=== PATIENT | male | born 1965 | race Caucasian/White ===

== ENCOUNTER 2018-02-15 17:09 | Outpatient (REF) | payer MEDICAID, SELFPAY ==
[2018-02-15 19:33] LABS: Anion Gap 8.4 mmol/L (3-11); BUN 15 mg/dL (7-18); CO2 28.6 mmol/L (21.0-32.0); CREATININE 1.24 mg/dL (0.70-1.30); Calcium 10.1 mg/dL (8.5-10.1); Chloride 100 mmol/L (98-107); Glucose 87 mg/dL (70-100); Potassium 3.6 mmol/L (3.5-5.1); Sodium 137 mmol/L (136-145)
== END 2018-02-15 17:29 ==
LOC: NCHCN 17:09
PROVIDERS: PCP Family Medicine; Visit Provider Family Medicine
DX: I10 Essential (primary) hypertension (principal)
CPT/HCPCS: 80048

== ENCOUNTER 2019-07-11 12:55 | Outpatient (REF) | payer MEDICARE, MEDICAID, SELFPAY ==
[2019-07-11 19:57] LABS: ALT 29 U/L (16-63); AST 25 U/L (15-37); Albumin 3.9 g/dL (3.4-5.0); Alkaline Phosphatase 67 U/L (46-116); Anion Gap 9.8 mmol/L (3-11); BUN 13 mg/dL (7-18); Bilirubin, Total 0.3 mg/dL (0.2-1.0); CO2 30.2 mmol/L (21.0-32.0); CREATININE 1.32 mg/dL (0.70-1.30); Calcium 9.8 mg/dL (8.5-10.1); Calculated LDL 138 mg/dL (<100); Chloride 97 mmol/L (98-107); Cholesterol 215 mg/dL (<200); Estimated GFR 57.18 (mL/min/1.73m2); Glucose 101 mg/dL (74-106); HDL Cholesterol 42 mg/dL (40-60); Potassium 3.9 mmol/L (3.5-5.1); Sodium 137 mmol/L (136-145); Total Protein 7.8 g/dL (6.4-8.2); Triglyceride 175 mg/dL (<150)
== END 2019-07-11 13:15 ==
LOC: NCHCN 12:55
PROVIDERS: PCP Family Medicine; Visit Provider Family Medicine
DX: I10 Essential (primary) hypertension (principal)
CPT/HCPCS: 80053; 80061

== ENCOUNTER 2020-02-05 21:31 | Outpatient (REF) | payer MEDICARE, MEDICAID, SELFPAY ==
[2020-02-13 11:21] LABS: 2-OH-Ethyl-Flurazepam Negative; Lorazepam Negative; Temazepam Negative
[2020-02-13 11:46] LABS: Alpha OH-Alprazolam Negative
[2020-02-13 11:49] LABS: Benzodiazepines Interpretation Positive
[2020-02-13 12:31] LABS: 7-NH-Clonazepam 979 ng/mL
[2020-02-13 12:32] LABS: 7-NH-Flunitrazepam Negative
[2020-02-13 12:37] LABS: Alpha-OH-Triazolam Negative
== END 2020-02-05 21:51 ==
LOC: NCHCN 21:31
PROVIDERS: PCP Family Medicine; Visit Provider Family Medicine
DX: Z51.81 Encounter for therapeutic drug level monitoring (principal)
CPT/HCPCS: 80346

== ENCOUNTER 2021-03-01 20:10 | Outpatient (REF) | payer MEDICARE, MEDICAID, SELFPAY ==
[2021-03-01 20:02] LABS: ALT 27 U/L (16-63); AST 23 U/L (15-37); Albumin 4.1 g/dL (3.4-5.0); Alkaline Phosphatase 94 U/L (46-116); Anion Gap 13.5 mmol/L (3-11); BUN 21 mg/dL (7-18); Bilirubin, Total 0.5 mg/dL (0.2-1.0); CO2 25.5 mmol/L (21.0-32.0); CREATININE 1.6 mg/dL (0.70-1.30); Calcium 9.5 mg/dL (8.5-10.1); Calculated LDL 156 mg/dL (<100); Chloride 103 mmol/L (98-107); Cholesterol 248 mg/dL (<200); Estimated GFR 45.44 (mL/min/1.73m2); Glucose 83 mg/dL (74-106); HDL Cholesterol 47 mg/dL (40-60); Potassium 3.9 mmol/L (3.5-5.1); Sodium 142 mmol/L (136-145); Total Protein 7.8 g/dL (6.4-8.2); Triglyceride 228 mg/dL (<150)
[2021-03-02 23:18] LABS: PSA, Screening 0.5 ng/mL (0.0-3.5)
== END 2021-03-01 20:11 | disposition home or self-care (01) ==
LOC: NCHCN 20:10
PROVIDERS: PCP Family Medicine; Visit Provider Family Medicine
DX: I10 Essential (primary) hypertension (principal); E78.5 Hyperlipidemia, unspecified; Z00.00 Encounter for general adult medical examination without abnormal findings
CPT/HCPCS: 80053; 80061; 84153

== ENCOUNTER 2021-05-02 03:32 | Outpatient (CLI) | payer MEDICARE, MEDICAID, SELFPAY ==
--- NOTE | 2021-05-02 13:00 | DI.US_ITS ---
Exam(s) US RENAL EXAM: US RENAL CLINICAL HISTORY: RENAL INSUFFICIENCY, N28.9. TECHNIQUE: Martin scale, color and spectral Doppler were used. COMPARISON: No exams were available for comparison FINDINGS: Renal size in cm: Right: 10.5 left: 10.5 Echogenicity: Normal. Normal parenchymal thickness. Hydronephrosis: No Cyst or mass: No Nephrolithiasis: No Bladder:Normal. Did the ureteral jets were not visualized. Prevoid vol: 45 cc Postvoid vol:0 cc IMPRESSION: Unremarkable renal ultrasound. DATA REPOSITORY:
== END 2021-05-02 03:52 ==
PROVIDERS: PCP Family Medicine; Visit Provider Family Medicine
DX: N28.9 Disorder of kidney and ureter, unspecified (principal)
CPT/HCPCS: 76770

== ENCOUNTER 2021-05-24 17:54 | Outpatient (REF) | payer MEDICARE, MEDICAID, SELFPAY ==
[2021-05-26 12:53] LABS: COVID-19 RT-PCR UVMMC Result Negative (Negative)
== END 2021-05-24 17:55 | disposition home or self-care (01) ==
LOC: NCHCN 17:54
PROVIDERS: PCP Family Medicine; Visit Provider Family Medicine
DX: Z20.822 Contact with and (suspected) exposure to COVID-19 (principal)
CPT/HCPCS: U0003

== ENCOUNTER 2021-08-23 15:58 | Outpatient (REF) | payer MEDICARE, MEDICAID, SELFPAY ==
[2021-08-23 15:08] LABS: HCT 51.6 % (40.0-50.0)
[2021-08-23 16:24] LABS: ALT 38 U/L (16-63); AST 26 U/L (15-37); Albumin 3.7 g/dL (3.4-5.0); Alkaline Phosphatase 72 U/L (46-116); Anion Gap 7.3 mmol/L (3-11); BUN 18 mg/dL (7-18); Bilirubin, Total 0.3 mg/dL (0.2-1.0); C-Reactive Protein 0.24 mg/dL (0.0-0.3); CO2 27.7 mmol/L (21.0-32.0); CREATININE 1.5 mg/dL (0.70-1.30); Calcium 8.9 mg/dL (8.5-10.1); Chloride 103 mmol/L (98-107); Estimated GFR 48.77 (mL/min/1.73m2); Glucose 88 mg/dL (74-106); Potassium 3.7 mmol/L (3.5-5.1); Sodium 138 mmol/L (136-145); Total Protein 7.4 g/dL (6.4-8.2)
[2021-08-24 14:59] LABS: ANA Interpretation Positive (Negative); ANA Titer Pattern 1:320 Homogeneous
== END 2021-08-23 15:59 | disposition home or self-care (01) ==
LOC: NCHCN 15:58
PROVIDERS: PCP Family Medicine; Visit Provider Family Medicine
DX: I10 Essential (primary) hypertension (principal); N28.9 Disorder of kidney and ureter, unspecified; M79.7 Fibromyalgia; G89.29 Other chronic pain
CPT/HCPCS: 80053; 85014; 85018; 86038; 86140

== ENCOUNTER 2021-09-20 15:44 | Outpatient (REF) | payer MEDICARE, MEDICAID, SELFPAY ==
[2021-09-20 19:04] LABS: Bacteria Negative HPF (Negative); C & S Indicated? No; Crystals Negative HPF (Negative); Epithelial Cells Few HPF (Negative); Mucus Moderate (Negative); WBC 0-2 HPF (0-5)
[2021-09-22 12:12] LABS: dsDNA Ab, IgG <12.3 IU/mL (<30.0)
[2021-09-22 13:00] LABS: RNP Ab, IgG 4.2 Units (<20.0); SS-A Antibody 1.9 Units (<20.0); SS-B (La) Ab, IgG 2.9 Units (<20.0); Sm (Smith) Ab, IgG 4.4 Units (<20.0)
== END 2021-09-20 15:45 | disposition home or self-care (01) ==
LOC: NCHCN 15:44
PROVIDERS: PCP Family Medicine; Visit Provider Family Medicine
DX: N28.9 Disorder of kidney and ureter, unspecified (principal); R94.4 Abnormal results of kidney function studies; R79.89 Other specified abnormal findings of blood chemistry
CPT/HCPCS: 81015; 86225; 86235

== ENCOUNTER 2022-01-24 15:49 | Outpatient (REF) | payer MEDICARE, MEDICAID, SELFPAY ==
[2022-01-24 18:53] LABS: HCT 51.5 % (40.0-50.0); HGB 17.1 g/dL (13.5-17.5); MCH 31.5 pg (27.0-33.0); MCHC 33.2 % (32.0-36.0); MCV 95 fL (80-95); MPV 10.9 fL (8.0-11.0); Platelet Count 239 10^3/uL (130-400); RBC 5.43 10^6/uL (4.36-5.78); RDW 14.6 % (11.8-14.1); RDW-SD 50.5 fL; WBC 8.67 10^3/uL (4.4-10.8)
[2022-01-24 19:01] LABS: Anion Gap 6.8 mmol/L (3-11); BUN 17 mg/dL (7-18); CO2 29.2 mmol/L (21.0-32.0); CREATININE 1.5 mg/dL (0.70-1.30); Calcium 9.7 mg/dL (8.5-10.1); Chloride 102 mmol/L (98-107); Estimated GFR 54.98 (mL/min/1.73m2); Glucose 125 mg/dL (74-106); Potassium 4.2 mmol/L (3.5-5.1); Sodium 138 mmol/L (136-145)
== END 2022-01-24 15:50 | disposition home or self-care (01) ==
LOC: NCHCN 15:49
PROVIDERS: PCP Family Medicine; Visit Provider Family Medicine
DX: R79.89 Other specified abnormal findings of blood chemistry (principal); I10 Essential (primary) hypertension; N28.9 Disorder of kidney and ureter, unspecified; R94.4 Abnormal results of kidney function studies; Z00.00 Encounter for general adult medical examination without abnormal findings
CPT/HCPCS: 80048; 85027

== ENCOUNTER 2022-04-06 14:56 | Outpatient (REF) | payer MEDICARE, MEDICAID, SELFPAY ==
[2022-04-06 15:58] LABS: ALT 37 U/L (16-63); AST 40 U/L (15-37); Albumin 3.9 g/dL (3.4-5.0); Alkaline Phosphatase 90 U/L (46-116); Anion Gap 8.4 mmol/L (3-11); BUN 17 mg/dL (7-18); Bilirubin, Total 0.4 mg/dL (0.2-1.0); CO2 27.6 mmol/L (21.0-32.0); CREATININE 1.5 mg/dL (0.70-1.30); Calcium 9.5 mg/dL (8.5-10.1); Calculated LDL 119 mg/dL (<100); Chloride 101 mmol/L (98-107); Cholesterol 207 mg/dL (<200); Estimated GFR 54.98 (mL/min/1.73m2); Glucose 93 mg/dL (74-106); HDL Cholesterol 42 mg/dL (40-60); Potassium 4.4 mmol/L (3.5-5.1); Sodium 137 mmol/L (136-145); Total Protein 8.2 g/dL (6.4-8.2); Triglyceride 231 mg/dL (<150)
[2022-04-06 16:16] LABS: Creatine Kinase 140 U/L (39-308)
== END 2022-04-06 14:57 | disposition home or self-care (01) ==
LOC: NCHCN 14:56
PROVIDERS: PCP Family Medicine; Visit Provider Family Medicine
DX: E78.5 Hyperlipidemia, unspecified (principal); I10 Essential (primary) hypertension; N28.9 Disorder of kidney and ureter, unspecified; Z00.00 Encounter for general adult medical examination without abnormal findings
CPT/HCPCS: 80053; 80061; 82550

== ENCOUNTER 2022-06-06 00:24 | Outpatient (CLI) | payer MEDICARE, MEDICAID, SELFPAY ==
--- NOTE | 2022-06-06 | DI.CTLCSR_ITS ---
Exam(s) CT CHEST LUNG CANCER SCREEN EXAM: CT CHEST LUNG CANCER SCREEN CLINICAL HISTORY: SCREENING FOR LUNG CA, CURRENT SMOKER, F17.210. TECHNIQUE: Imaging Protocol: Low Dose Technique CONTRAST MATERIAL: None COMPARISON: CR CHEST 2 VIEWS PA,LAT from 04/07/2016 FINDINGS: CHEST: LUNGS: There is a calcified granuloma in the lateral aspect of the right upper which measures 8 x 8 m illimeters and immediately posterior to this is a smaller 2 millimeter calcified granuloma. There ar e no ominous pulmonary nodules in the right lung field. Benign-appearing scarring in the medial righ t lung base noted. Also no significant nodules in the opposite-left lung. No pleural effusions on e ither side.. MEDIASTINUM: There is no obvious hilar nor mediastinal adenopathy. CARDIAC: Heart size is normal. There is no pericardial effusion.Caliber of the thoracic aorta is wit hin normal limits. OTHER: No adrenal masses. No splenomegaly. OSSEOUS: No significant osseous lesions.No acute fractures.. Mild indentation of multiple superior endplates including Schmorl's node invaginations IMPRESSION: 1. Benign calcified granulomas right lung. No concerning lung nodules. No pleural effusions. No in trathoracic adenopathy. 2. Other findings as above. 3. Lung RADS Cat 2 - Benign Appearance / Behavior: Nodules with a very low likelihood of becoming a c linically active cancer due to size or lack of growth Lung-RADS 1.0 CATEGORIES: Category 0 - Prior chest CT exam(s) being located for comparison. Category 1 - Annual screening in 12 months. No nodules or definitely benign nodules. Category 2 - Annual screening in 12 months. Benign appearance. Nodules with low likelihood of becomin g active cancer. Category 3 - 6-month follow-up. Probably benign. Short-term follow-up suggested. Nodules with low lik elihood of becoming active cancer. Category 4A - 3-month follow-up and CT/PET if >8 mm in size. Suspicious finding. Findings which requi re additional testing. Category 4B - Findings which require additional testing and tissue sampling. Category 4X - Category 3 or 4 nodules with additional features or imaging findings that increases the suspicion of malignancy. Modifier S- Potentially clinically significant findings (non lung cancer) RADIATION DOSE DELIVERED: 101.51mGy.cm Total DLP DATA REPOSITORY: All CT scans at this facility are submitted to the National Radiology Data Registry (NRDR) Dose Index Registry (DIR) with the [employer] (ACR). RADIATION OPTIMIZATION: All CT scans at this facility use at least one of these dose optimization te chniques: automated exposure control; mA and/or kV adjustment per patient size (includes targeted exa ms where dose is matched to clinical indication); or iterative reconstruction.
== END 2022-06-06 00:44 ==
LOC: DI 00:25
PROVIDERS: PCP Family Medicine; Visit Provider Family Medicine
DX: F17.210 Nicotine dependence, cigarettes, uncomplicated (principal); J84.10 Pulmonary fibrosis, unspecified
CPT/HCPCS: 71271

== ENCOUNTER 2022-07-24 11:33 | Emergency (ER) | payer MEDICARE, MEDICAID, SELFPAY ==
[2022-07-24] VITALS (50 sets, daily range): BP systolic 128–172; BP diastolic 87–108; PULSE 49–76; RESP 10–19; TEMP 36.9; O2SAT 92–99
--- NOTE | 2022-07-24 12:30 | DI.CT_ITS ---
Exam(s) CT ABD AORTA CTA W RUNOFF EXAM: CT ABD AORTA CTA W RUNOFF CLINICAL HISTORY: paresthesias LE, no palp pulses LE, discoloration. TECHNIQUE: Imaging Protocol: Axial computed tomography images with coronal and sagittal reformatted images were created and reviewed CONTRAST MATERIAL: Intravenous: Omnipaque 350 Contrast volume:100 ml Oral: None COMPARISON: CT CT LUMBAR SPINE RECONS from 07/24/2022 FINDINGS: CHEST: ABDOMINAL AORTA: There is significant atherosclerotic involvement of the abdominal aorta and the abdo rafy aorta none is occluded at just slightly below the renal artery takeoff points. Right kidney is perfused. The anterior aspect the left kidney is not well perfused. Celiac artery is perfused. Th ere is some atherosclerotic involvement of the origin of the SMA. There appears to be a partially ca lcified intimal flap in the occluded abdominal aorta. There is no aneurysm. Common iliac arteries a re calcified but not enlarged. No flow seen in these vessels. There is, however, some flow reconsti tuted in the bilateral common femoral arteries. These vessels are atherosclerotic at their origins. However, the SFA arteries in both sides are patent without prominent stenosis. Both popliteal arter ies exhibit atherosclerotic involvement. There are no aneurysms of the popliteal arteries. There is satisfactory runoff in both calves. ABDOMEN: There is no ascites. There are no ischemic appearing bowel loops. No ascites evident. No bowel obs truction, free air, nor abscess. LIVER: There are no focal hepatic lesions nor dilatation of intrahepatic ducts. GALLBLADDER/BILIARY: No obvious gallbladder pathology. CBD is not dilated. PANCREAS: No evidence of pancreatic mass nor dilatation of the pancreatic duct. SPLEEN: Spleen is not enlarged. There are no intrasplenic lesions. Splenic and portal veins are kelly nt. ADRENALS: There are no significant adrenal masses. KIDNEYS: No cysts evident. No calculi nor hydronephrosis. No solid renal masses. ABDOMINAL AORTA: Occluded at and just distal to the renal arteries. Appearance is most probably rela robbin to prior dissection. LYMPH NODES: There is no retroperitoneal nor para-aortic adenopathy. No obvious mesenteric masses. ABDOMINAL WALL: No evidence of significant anterior abdominal wall hernia. GI: Diverticulosis of the sigmoid but no obvious acute diverticulitis. No appendicitis. PELVIS: LYMPH NODES: There is no intrapelvic nor inguinal adenopathy. GI: No evidence of appendicitis.Sigmoid diverticulosis. No obvious acute diverticulitis. URINARY BLADDER: No calculi nor masses evident REPRODUCTIVE: Prostate size normal. OSSEOUS: No significant osseous lesions. No fractures. IMPRESSION: 1. There is occlusion of the abdominal aorta just below the renal artery levels. The appearance of t he occlusion suggested it may be because of prior dissection. There is no flow seen in the common an d external iliac arteries but there is flow in the femoral arteries and popliteal arteries and runoff vessels of the calf. There is atherosclerotic disease at the level the popliteal arteries. No popl iteal artery aneurysms.. 2. There is significant decreased perfusion to the anterior aspect of the left kidney. 3. Other findings as above RADIATION DOSE DELIVERED: Total DLP DATA REPOSITORY: All CT scans at this facility are submitted to the National Radiology Data Registry (NRDR) Dose Index Registry (DIR) with the [employer] (ACR). RADIATION OPTIMIZATION: All CT scans at this facility use at least one of these dose optimization te chniques: automated exposure control; mA and/or kV adjustment per patient size (includes targeted exa ms where dose is matched to clinical indication); or iterative reconstruction.
--- NOTE | 2022-07-24 12:30 | RT.EKG_ITS ---
APPROVED REPORT Exam: Resting ECG Reason for Exam: left chest pain Patient Location: E HR:60 bpm ECG Measurements Heart Rate 60 AXIS CO 135 P 17 QRSd 93 QRS 68 QT 425 T 49 QTc 426 Conclusion Sinus rhythm...normal P axis, V-rate 60- 99 Narrow complex normal sinus rhythm at a rate of 68. Normal axis. Intervals within normal limits. T wave flattening in aVL. No ST segment abnormalities. No prior for comparison. No acute injury pat delores.
--- NOTE | 2022-07-24 12:38 | DI.CT_ITS ---
Exam(s) CT LUMBAR SPINE RECONS EXAM: CT LUMBAR SPINE RECONS CLINICAL HISTORY: back pain post fall. TECHNIQUE: Imaging Protocol: Axial computed tomography images with coronal and sagittal reformatted images were created and reviewed COMPARISON: No exams were available for comparison FINDINGS: Bones: There are no fractures, listhesis, nor pars defects. There are no lytic nor blastic osseous l esions evident. Disc spaces exhibit normal height. PARASPINAL SOFT TISSUES: There is occlusion of the abdominal aorta just distal to the renal arteries. IMPRESSION: 1. No fractures. 2. Occluded abdominal aorta- Leriche syndrome RADIATION DOSE DELIVERED: 1624.47 mGy.cm Total DLP DATA REPOSITORY: All CT scans at this facility are submitted to the National Radiology Data Registry (NRDR) Dose Index Registry (DIR) with the [employer] (ACR). RADIATION OPTIMIZATION: All CT scans at this facility use at least one of these dose optimization te chniques: automated exposure control; mA and/or kV adjustment per patient size (includes targeted exa ms where dose is matched to clinical indication); or iterative reconstruction.
[2022-07-24 13:07] LABS: Abs Immature Grans 0.03 10^3/uL (0.0-0.06); Absolute Basophil Count 0.05 10^3/uL (0.0-0.2); Absolute Eosinophil Count 0.14 10^3/uL (0.0-0.7); Absolute Lymphocyte Count 2.47 10^3/uL (1.2-3.4); Absolute Monocyte Count 0.57 10^3/uL (0.1-0.8); Absolute Neutrophil Count 4.36 10^3/uL (1.2-6.7); Basophils % 0.7; Eosinophils % 1.8; Immature Grans % 0.4; Lymphocytes % 32.4; MCH 31.2 pg (27.0-33.0); MCHC 33.3 % (32.0-36.0); MCV 94 fL (80-95); MPV 9.8 fL (8.0-11.0); Monocytes % 7.5; Neutrophils % 57.2; Platelet Count 180 10^3/uL (130-400); RBC 5.13 10^6/uL (4.36-5.78); RDW 14.6 % (11.8-14.1); RDW-SD 50.5 fL; WBC 7.62 10^3/uL (4.4-10.8)
[2022-07-24] MEDS: fentaNYL 100 MCG/2 ML VIAL 50 MCG IVP (13:22)
[2022-07-24 13:53] LABS: ALT 21 U/L (16-63); AST 22 U/L (15-37); Albumin 3.5 g/dL (3.4-5.0); Alkaline Phosphatase 87 U/L (46-116); Anion Gap 8.3 mmol/L (3-11); BUN 28 mg/dL (7-18); Bilirubin, Total 0.3 mg/dL (0.2-1.0); CO2 26.7 mmol/L (21.0-32.0); CREATININE 1.5 mg/dL (0.70-1.30); Calcium 8.6 mg/dL (8.5-10.1); Chloride 103 mmol/L (98-107); Estimated GFR 54.98 (mL/min/1.73m2); Glucose 96 mg/dL (74-106); Potassium 4.2 mmol/L (3.5-5.1); Sodium 138 mmol/L (136-145); Total Protein 7.6 g/dL (6.4-8.2)
[2022-07-24] MEDS: Normal Saline - Diluent 50 ML VIAL IJ (14:33)
[2022-07-24] MEDS: Omnipaque 350 MG/ML 100 ML BTL IJ (14:33)
[2022-07-24] MEDS: Normal Saline Flush 10 ML SYR IVP (14:34)
--- NOTE | 2022-07-24 14:41 | W.ED.GENAD ---
Discharge Plan Disposition Patient Disposition: Transfer-Acute Inpatient Care Specific Acute Inpt Facility: [facility] Discharge Details Clinical Impression: Aortic occlusion Primary Care Provider: April Ramirez V ED Provider: Brooklynn Vital Home Meds and New Rx's Prescriptions: Continued sertraline [Zoloft] 100 MG tablet 20 mg PO DAILY clonazepam 1 MG tablet 1 mg PO TID hydrocodone-acetaminophen [Vicodin HP] 1 EACH tablet 1 ea PO QPM PRNQty: 8 0RF Patient Comments: not taking Discharge Data Discharge Date/Time-TO BE ENTERED AT DEPARTURE: 07/24/22 19:27 Medical Decision Making <AILYN Otto - Last Filed: 07/26/22 13:36> This 36-year-old male presents with report of back pain and paresthesias to bilateral lower extremities. He states bilateral lower extremities, worse on the right in the popliteal region and right foot, he is having trouble with flexion and extension of his right foot secondary to pain or radiation Secondary to discoloration to bilateral lower extremities and inability to gain pulses to bilateral lower extremities, CTA aorta with runoff was ordered, patient is a distal occlusion with concern for infarcted left kidney Creatinine 1.4, unchanged from prior Received pain medication and heparin bolus in the infusion Case was discussed with Dr. Leger, vascular surgeon on-call at [facility], she is excepted patient to the emergency department for emergent assessment Patient aware, full CODE STATUS Medical Records Medical records reviewed: Yes I reviewed the patient's medical records. Lab Data Lab results reviewed: Yes I reviewed the patient's lab results. <Brooklynn Vital NP - Last Filed: 07/24/22 20:48> This 36-year-old male presents with report of back pain and paresthesias to bilateral lower extremities. He states bilateral lower extremities, worse on the right in the popliteal region and right foot, he is having trouble with flexion and extension of his right foot secondary to pain or radiation Secondary to discoloration to bilateral lower extremities and inability to gain pulses to bilateral lower extremities, CTA aorta with runoff was ordered, patient is a distal occlusion with concern for infarcted left kidney Creatinine 1.4, unchanged from prior Received pain medication and heparin bolus in the infusion Case was discussed with Dr. Leger, vascular surgeon on-call at [facility], she is excepted patient to the emergency department for emergent assessment Patient aware, full CODE STATUS 1630: SJ: Care assumed from provider (AILYN Otto) Please see their initial HPI, PE, and documentation. Discussed patient details and case and pending workup and disposition. Patient is hemodynamically stable, and alert and oriented. At the time of signout awaiting transfer to [facility] for vascular surgery eval. In short patient is a 56-year-old male with an occluded distal aorta with concern for infarcted left kidney. Patient is on a heparin drip at this time. Vital signs are stable at this time. Approximate ETA for transfer is 1900 1803: PTT received from the lab to be greater than 155. Heparin drip stopped for approximately 60 minutes per protocol we will restart at a reduced rate. 1905: EMS here for transfer. Patient has remained hemodynamically stable through the remainder of his stay. HPI <AILYN Otto - Last Filed: 07/26/22 13:36> General Date/Time Provider Initiated Documentation: 07/24/22 12:24. HPI Narrative: This 56-year-old gentleman with history of renal insufficiency and tobacco abuse presents with report of chronic back pain worsening symptoms over the course of the past 2 days. He states that he has had intermittent numbness over the course of the past 48 hours. He states that the numbness is caused him to fall, he denies any head injury. He denies any shortness of breath. He states he did hit his ribs when he fell. He denies any current headache or dizziness. He states that he presents secondary to persistent back pain and paresthesias to his legs, he states it starts at the top of his hips and the paresthesias are diffuse throughout his lower extremities, he wrote reports significant pain to his right lower extremity and right foot. Related Data Home Medications Medication Instructions Recorded Confirmed clonazepam 1 mg tablet 1 mg PO TID 04/07/16 07/24/22 hydrocodone 10 mg-acetaminophen 1 ea PO QPM PRN ##8 04/07/16 300 mg tablet (Vicodin HP) sertraline 100 mg tablet (Zoloft) 20 mg PO DAILY 04/07/16 07/24/22 Previous Rx's Medication Instructions Recorded hydrocodone 10 mg-acetaminophen 1 ea PO QPM PRN ##8 04/07/16 300 mg tablet (Vicodin HP) Allergies Allergy/AdvReac Type Severity Reaction Status Date / Time codeine AdvReac Mild Nausea Unverified 07/24/22 11:39 General Stated Complaint: Nk/Back Pain MONIQUE: 3 PFSH <AILYN Otto - Last Filed: 07/26/22 13:36> All Active Problems (Updated 07/24/22 @ 16:17 by AILYN Otto) Aortic occlusion (Acute) Renal insufficiency (Chronic) Exposure to SARS-associated coronavirus (Acute) Elevated serum creatinine (Acute) NEEMA positive (Acute) Smoker (Acute) Inflamed sebaceous cyst (Acute) Medical History (Updated 07/24/22 @ 16:17 by AILYN Otto) Acne Acute chest wall pain Arthralgia Carpal tunnel syndrome, bilateral Cervicalgia Chronic pain Encounter for therapeutic drug level monitoring Erectile dysfunction Fibromyalgia Fracture of one rib of right side Generalized anxiety disorder History of adverse drug reaction History of alcohol abuse Hyperlipidemia Hypertension Insomnia Lower back pain Osteoarthritis, generalized PTSD (post-traumatic stress disorder) Raynauds phenomenon Right groin pain Sebaceous cyst Situational depression Viral syndrome Social History Smoking/Tobacco Use Status: Current every day Smoking risk assessment performed?: Yes Alcohol Intake: never Drug use: Daily Substance use type: marijuana Do you feel safe in your relationship?: Yes Exam <AILYN Otto - Last Filed: 07/26/22 13:36> Const General: cooperative, comfortable and no acute distress Cardio Rate: regular rate Rhythm: regular rhythm GI Inspection: normal to inspection Other: No abdominal tenderness, no CVA tenderness Neuro General: patient alert and patient oriented x3 Other: diminished sensation to bilateral LE Extrem Other: pale, cool LE, no pulse palpated or with doppler Course <AILYN Otto - Last Filed: 07/26/22 13:36> Vital Signs Vital signs: Vital Signs Temperature 36.9 C 07/24/22 11:36 Pulse 76 07/24/22 11:36 Respiratory Rate 18 07/24/22 11:36 Blood Pressure 157/103 H 07/24/22 11:36 Pulse Oximetry 98 07/24/22 11:36 Temperature 36.9 C 07/24/22 11:36 Temperature Source Temporal Artery Scan 07/24/22 11:36 Pulse 59 L 07/24/22 14:32 Respiratory Rate 18 07/24/22 11:36 Respiratory Effort Normal, Non-Labored 07/24/22 11:39 Blood Pressure 145/93 H 07/24/22 14:32 Blood Pressure Mean 104 07/24/22 14:32 Pulse Oximetry 98 07/24/22 14:32 Oxygen Delivery Method Room Air 07/24/22 11:36 Oxygen Flow Rate 0 07/24/22 11:36 Lab/Test Results Lab/Test Results: Laboratory Tests Range/Units 07/24/22 07/24/22 13:00 13:25 WBC (4.4-10.8) 10^3/uL 7.62 RBC (4.36-5.78) 10^6/uL 5.13 Hgb (13.5-17.5) g/dL 16.0 Hct (40.0-50.0) % 48.0 MCV (80-95) fL 94 MCH (27.0-33.0) pg 31.2 MCHC (32.0-36.0) % 33.3 RDW (11.8-14.1) % 14.6 H Plt Count (130-400) 10^3/uL 180 MPV (8.0-11.0) fL 9.8 Immature Gran % 0.4 Neutrophils % 57.2 Lymphocytes % 32.4 Monocytes % 7.5 Eosinophils % 1.8 Basophils % 0.7 Nucleated RBC % (0.0-0.3) % 0.0 Absolute Neutrophils (1.2-6.7) 10^3/uL 4.36 Absolute Lymphocytes (1.2-3.4) 10^3/uL 2.47 Absolute Monocytes (0.1-0.8) 10^3/uL 0.57 Absolute Eosinophils (0.0-0.7) 10^3/uL 0.14 Absolute Basophils (0.0-0.2) 10^3/uL 0.05 Sodium (136-145) mmol/L 138 Potassium (3.5-5.1) mmol/L 4.2 Chloride (98-107) mmol/L 103 Carbon Dioxide (21.0-32.0) mmol/L 26.7 Anion Gap (3-11) mmol/L 8.3 BUN (7-18) mg/dL 28 H Creatinine (0.70-1.30) mg/dL 1.5 H Est GFR (CKD-EPI 2020) (mL/min/1.73m2) 54.98 Glucose (74-106) mg/dL 96 Calcium (8.5-10.1) mg/dL 8.6 Total Bilirubin (0.2-1.0) mg/dL 0.3 AST (15-37) U/L 22 ALT (16-63) U/L 21 Alkaline Phosphatase (46-116) U/L 87 Total Protein (6.4-8.2) g/dL 7.6 Albumin (3.4-5.0) g/dL 3.5 Critical Care Time <AILYN Otto - Last Filed: 07/26/22 13:36> Critical Care Time Attestation: Approximately 45 minutes of critical care time secondary to acute occlusion of distal aorta, heparinization, telemetry monitoring, CTA aorta with runoff interpretation, and radiology consultation, and ultimately transferred to [facility] after discussion with vascular surgery Sign Out <AILYN Otto - Last Filed: 07/26/22 13:36> Sign Out Data: Sign Out Comment: pending transfer to [facility] for occluded distal aorta, tx to ED, heparin protocol initiation Last updated by Kell Henley PA at 07/24/22 16:23
--- NOTE | 2022-07-24 15:19 | DI.VRAD_ITS ---
PROCEDURE INFORMATION: Exam: CTA Abdominal Aorta and Bilateral Lower Extremities (Run-off) With Contrast Exam date and time: 07/24/2022 2:12 PM Age: 56 years old Clinical indication: Other: Paresthesias le, no palp pulses le, discoloration TECHNIQUE: Imaging protocol: Computed tomographic angiography of the of the abdominal aorta, pelvis and bilateral lower extremities with contrast. 3D rendering (Not supervised by radiologist): MIP and/or 3D reconstructed images were created by the technologist. Contrast material: OMNIPAQUE 350; Contrast volume: 100 ml; Contrast route: INTRAVENOUS (IV); COMPARISON: CT CHEST LUNG CANCER SCREEN 06/06/2022 2:14 PM FINDINGS: Aorta: Occluded abdominal aorta distal to the renal arteries. Celiac trunk and mesenteric arteries: No occlusion or significant stenosis. Renal arteries: See Aorta finding. Right iliac arteries: Occluded right common iliac artery. Occluded the right external iliac artery Right femoral/popliteal arteries: Reconstitution in the right common femoral artery. Small caliber right superficial femoral artery. Right popliteal artery small caliber Right infrapopliteal arteries: Small caliber trifurcation vessels on the right. Intermittent occlusion and reconstitution in the right peroneal artery Left iliac arteries: Occluded left common iliac artery. Occluded left external iliac artery Left femoral/popliteal arteries: Reconstitution in the left common femoral artery. Small caliber left superficial femoral artery. Left popliteal artery small caliber Left infrapopliteal arteries: Small caliber trifurcation vessels on the left Lungs: Bibasilar atelectasis Liver: No mass. Gallbladder and bile ducts: Unremarkable. No calcified stones. No ductal dilation. Pancreas: Unremarkable. No mass. No ductal dilation. Spleen: Normal. No splenomegaly. Adrenal glands: Normal. No mass. Kidneys and ureters: No perfusion to the anterior inferior aspect of the left kidney . Stomach and bowel: Diverticulosis of the rectosigmoid. No diverticulitis Appendix: Normal appendix Urinary bladder: Unremarkable. No mass. Reproductive: Unremarkable as visualized. Intraperitoneal space: Unremarkable. No free air. No significant fluid collection. Lymph nodes: No lymphadenopathy. Bones/joints: No acute fracture. No dislocation. Soft tissues: Unremarkable. IMPRESSION: 1. Occluded abdominal aorta distal to the renal arteries. 2. No perfusion to the anterior inferior aspect of the left kidney . 3. Occlusion of the common iliac arteries bilaterally and external iliac arteries bilaterally THIS REPORT CONTAINS FINDINGS THAT MAY BE CRITICAL TO PATIENT CARE. The findings were verbally communicated via telephone conference with Kell Henley at 3:15 PM EDT on 07/24/2022. The findings were acknowledged and understood. Dictated and Authenticated by: Austin Littlejohn MD. Ordering:HANDY Castorena MD
--- NOTE | 2022-07-24 15:24 | DI.VRAD_ITS ---
PROCEDURE INFORMATION: Exam: CT Lumbar Spine Without Contrast Exam date and time: 07/24/2022 2:12 PM Age: 56 years old Clinical indication: Numbness TECHNIQUE: Imaging protocol: Computed tomography of the lumbar spine without contrast. COMPARISON: CR LUMBAR SPINE COMPLETE 06/21/2016 10:44 AM FINDINGS: Bones/joints: There is no evidence of acute fracture.There is no evidence of malalignment or dislocation. Kidneys and ureters: Decreased perfusion to the anterior inferior left kidney. Vasculature: The aorta distal to the renal arteries is occluded.. Soft tissues: Unremarkable. IMPRESSION: 1. The aorta distal to the renal arteries is occluded.. 2. Decreased perfusion to the anterior inferior left kidney. 3. There is no evidence of acute fracture.There is no evidence of malalignment or dislocation. Dictated and Authenticated by: Austin Littlejohn MD. Ordering:HANDY Castorena MD
[2022-07-24] MEDS: Heparin in 0.45% NaCl 25,000 UNIT/250 ML BAG 16.5 UNIT IV (15:49)
[2022-07-24] MEDS: Normal Saline 1,000 ML 100 ML IV (16:46)
[2022-07-24] MEDS: MORPHine 4 MG/ML SYR IVP (16:46)
[2022-07-24 17:22] LABS: INR 1.1 (0.9-1.1)
[2022-07-24 17:50] LABS: PTT Activated > 155.0 sec (21.5-31.9)
--- NOTE | 2022-07-24 18:45 | NUR.NOTE ---
Nursing Note: report given to ED nurse Mary at [facility].
== END 2022-07-24 19:27 | disposition short-term general hospital (02) ==
PROVIDERS: Physician Assistant; Emergency Provider Registered Nurse Emergency; PCP Family Medicine
DX: I70.0 Atherosclerosis of aorta (principal); N28.9 Disorder of kidney and ureter, unspecified; F17.200 Nicotine dependence, unspecified, uncomplicated; I10 Essential (primary) hypertension
CPT/HCPCS: 36415; 75635; 80053; 93005; 96365; 96366; 96376; 99291; 85025; 85610; 85730; 93010; J2270; J3010; J3490

== ENCOUNTER 2022-08-31 12:50 | Outpatient (REF) | payer MEDICARE, SELFPAY ==
[2022-08-31 18:00] LABS: Anion Gap 10.9 mmol/L (3-11); BUN 19 mg/dL (7-18); CO2 24.1 mmol/L (21.0-32.0); CREATININE 1.5 mg/dL (0.70-1.30); Calcium 9.1 mg/dL (8.5-10.1); Chloride 100 mmol/L (98-107); Estimated GFR 54.64 (mL/min/1.73m2); Glucose 85 mg/dL (74-106); Potassium 4.4 mmol/L (3.5-5.1); Sodium 135 mmol/L (136-145)
== END 2022-08-31 12:51 | disposition home or self-care (01) ==
LOC: NCHCN 12:50
PROVIDERS: PCP Family Medicine; Visit Provider Family Medicine
DX: E78.5 Hyperlipidemia, unspecified (principal); I10 Essential (primary) hypertension; N28.9 Disorder of kidney and ureter, unspecified
CPT/HCPCS: 80048; 85025

== ENCOUNTER 2022-09-05 02:31 | Outpatient (CLI) | payer MEDICARE, SELFPAY ==
--- NOTE | 2022-09-05 13:02 | DI.RAD_ITS ---
Exam(s) XR FOOT RT COMPLETE EXAM: XR FOOT RT COMPLETE CLINICAL HISTORY: RT FOOT PAIN, M79.671. TECHNIQUE: 2D digital imaging was performed. COMPARISON: No exams were available for comparison FINDINGS: 3 views No evidence of acute fracture or diastasis of the Lisfranc joint. Bone density normal. No osseous l esions. No erosions. No radiopaque foreign body. IMPRESSION: No acute osseous findings. DATA REPOSITORY: RADIATION DOSE DELIVERED:
--- NOTE | 2022-09-05 13:02 | DI.RAD_ITS ---
Exam(s) XR ANKLE RT COMPLETE EXAM: XR ANKLE RT COMPLETE CLINICAL HISTORY: PAIN. TECHNIQUE: 2D digital imaging was performed. COMPARISON: No exams were available for comparison FINDINGS: No evidence of fracture or widening of the ankle mortise. Talar dome unremarkable. Enthesophyte not ed at the Achilles insertion on the posterior calcaneus. No inferior calcaneal spur evident. IMPRESSION: No acute osseous findings in the ankle. DATA REPOSITORY: RADIATION DOSE DELIVERED:
== END 2022-09-05 02:51 ==
LOC: DI 02:32
PROVIDERS: PCP Family Medicine; Visit Provider Family Medicine
DX: M25.571 Pain in right ankle and joints of right foot
CPT/HCPCS: 73610; 73630

== ENCOUNTER 2022-09-29 00:57 | Outpatient (CLI) | payer MEDICARE, SELFPAY ==
--- NOTE | 2022-09-29 14:46 | DI.RAD_ITS ---
Exam(s) XR LUMBAR SPINE COMPLETE EXAM: XR LUMBAR SPINE COMPLETE CLINICAL HISTORY: WEAKNESS OF BRISSA LEGS, R53.1. TECHNIQUE: 2D digital imaging was performed. Five views. COMPARISON: No exams were available for comparison FINDINGS: BONES: No fracture or destructive lesion. Vertebral body heights are maintained. Mild facet hypertro phy identified L4-5 and L5-S1.. SI joints unremarkable. DISKS: Intervertebral disc spaces are maintained. ALIGNMENT: Lumbar spinal alignment is within normal limits. SOFT TISSUE: Aorta and iliac arteries heavily calcified. No evidence of aneurysm. IMPRESSION: Mild degenerative changes. DATA REPOSITORY: RADIATION DOSE DELIVERED:
== END 2022-09-29 01:17 ==
LOC: DI 00:57
PROVIDERS: PCP Family Medicine; Visit Provider Family Medicine
DX: R53.1 Weakness (principal)
CPT/HCPCS: 72110

== ENCOUNTER 2022-10-10 16:13 | Outpatient (REF) | payer MEDICARE, SELFPAY ==
[2022-10-10 15:59] LABS: HCT 41.8 % (40.0-50.0); HGB 13.5 g/dL (13.5-17.5)
[2022-10-10 16:10] LABS: BUN 16 mg/dL (7-18); CREATININE 1.2 mg/dL (0.70-1.30); Calcium 9.7 mg/dL (8.5-10.1); Chloride 105 mmol/L (98-107); Estimated GFR 71.42 (mL/min/1.73m2); Glucose 87 mg/dL (74-106); Potassium 4.2 mmol/L (3.5-5.1); Sodium 141 mmol/L (136-145)
== END 2022-10-10 16:14 | disposition home or self-care (01) ==
LOC: NCHCN 16:13
PROVIDERS: PCP Family Medicine; Visit Provider Family Medicine
DX: I10 Essential (primary) hypertension (principal); N28.9 Disorder of kidney and ureter, unspecified
CPT/HCPCS: 80048; 85014; 85018

== ENCOUNTER 2023-08-21 14:59 | Emergency (ER) | payer MEDICARE, SELFPAY ==
[2023-08-21 15:04] VITALS: BP 176/100; PULSE 64; RESP 18; TEMP 36.9; O2SAT 98
--- NOTE | 2023-08-21 16:15 | DI.RAD_ITS ---
Exam(s) XR ANKLE RT COMPLETE EXAM: XR ANKLE RT COMPLETE CLINICAL HISTORY: ankle pain after twisting. TECHNIQUE: 2D digital imaging was performed. Three views. COMPARISON: CR XR ANKLE RT COMPLETE from 09/05/2022 FINDINGS: BONES: No acute fracture is present. No bony destructive lesion is seen. Enthesophyte at Achilles insertion. JOINTS: The ankle mortise is normally aligned. SOFT TISSUE: Swelling around malleoli. IMPRESSION: Unremarkable radiographs of the right ankle. DATA REPOSITORY: RADIATION DOSE DELIVERED:
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
--- NOTE | 2023-08-21 16:15 | DI.RAD_ITS ---
Exam(s) XR HAND LT COMPLETE EXAM: XR HAND LT COMPLETE CLINICAL HISTORY: L ring finger pain, fingers sore. TECHNIQUE: 2D digital imaging was performed. Three views. COMPARISON: No exams were available for comparison FINDINGS: BONES: Spiral fracture through the proximal phalanx of the 4th finger. Mild displacement. No additi onal fractures identified. No bony destructive lesion is seen. JOINTS: No dislocation present. SOFT TISSUE: Normal. IMPRESSION: Unremarkable fracture of the proximal phalanx of the ring finger. DATA REPOSITORY: RADIATION DOSE DELIVERED:
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
[2023-08-21] MEDS: oxyCODONE 5 MG TAB PO (18:21)
== END 2023-08-21 18:27 | disposition home or self-care (01) ==
PROVIDERS: Emergency Provider Nurse Practitioner Family; PCP Family Medicine
DX: S62.615A Displaced fracture of proximal phalanx of left ring finger, initial encounter for closed fracture (principal); S20.212A Contusion of left front wall of thorax, initial encounter; S93.401A Sprain of unspecified ligament of right ankle, initial encounter; Y04.0XXA Assault by unarmed brawl or fight, initial encounter
CPT/HCPCS: 99284; 71046; 71100; 73130; 73610

== ENCOUNTER → 2024-01-14 09:47 | Outpatient (BNVA) | payer MEDICARE, SELFPAY | PROVIDERS: PCP Family Medicine; Referring Provider Family Medicine; Visit Provider Surgery | DX: K43.2 Incisional hernia without obstruction or gangrene (principal); I10 Essential (primary) hypertension; F17.200 Nicotine dependence, unspecified, uncomplicated; Z79.01 Long term (current) use of anticoagulants | CPT/HCPCS: 99215 ==

== ENCOUNTER 2024-01-14 12:03 | Outpatient (CLI) | payer MEDICARE, SELFPAY ==
[2024-01-14 11:26] LABS: Abs Immature Grans 0.05 10^3/uL (0.0-0.06); Absolute Basophil Count 0.07 10^3/uL (0.0-0.2); Absolute Eosinophil Count 0.25 10^3/uL (0.0-0.7); Absolute Lymphocyte Count 3.48 10^3/uL (1.2-3.4); Absolute Monocyte Count 0.74 10^3/uL (0.1-0.8); Absolute Neutrophil Count 5.91 10^3/uL (1.2-6.7); Basophils % 0.7 %; Eosinophils % 2.4 %; HCT 52.2 % (40.0-50.0); HGB 17.4 g/dL (13.5-17.5); Immature Grans % 0.5 %; Lymphocytes % 33.1 %; MCH 31.1 pg (27.0-33.0); MCHC 33.3 % (32.0-36.0); MCV 93 fL (80-95); MPV 10.3 fL (8.0-11.0); Neutrophils % 56.3 %; Platelet Count 180 10^3/uL (130-400); RDW-SD 51.7 fL
[2024-01-14 12:05] LABS: ALT 32 U/L (16-63); AST 30 U/L (15-37); Albumin 3.9 g/dL (3.4-5.0); Alkaline Phosphatase 81 U/L (46-116); Anion Gap 9.3 mmol/L (3-11); BUN 28 mg/dL (7-18); Bilirubin, Total 0.39 mg/dL (0.2-1.0); CO2 26.7 mmol/L (21.0-32.0); CREATININE 1.4 mg/dL (0.70-1.30); Calcium 9.5 mg/dL (8.5-10.1); Chloride 109 mmol/L (98-107); Estimated GFR 58.99 (mL/min/1.73m2); Glucose 105 mg/dL (74-106); Sodium 145 mmol/L (136-145); Total Protein 8.2 g/dL (6.4-8.2)
== END 2024-01-14 12:04 | disposition home or self-care (01) ==
LOC: LBO 12:04
PROVIDERS: PCP Family Medicine; Visit Provider Surgery
DX: Z79.01 Long term (current) use of anticoagulants (principal); F17.200 Nicotine dependence, unspecified, uncomplicated; I10 Essential (primary) hypertension; I73.00 Raynaud's syndrome without gangrene; E78.5 Hyperlipidemia, unspecified; I70.90 Unspecified atherosclerosis; N28.9 Disorder of kidney and ureter, unspecified; E78.00 Pure hypercholesterolemia, unspecified
CPT/HCPCS: 36415; 80053; 99215; 85025

== ENCOUNTER 2024-01-16 01:50 | Outpatient (CLI) | payer MEDICARE, SELFPAY ==
--- NOTE | 2024-01-16 11:35 | DI.MRI_ITS ---
Exam(s) MR LUMBAR SPINE WO EXAM: MR LUMBAR SPINE WO CLINICAL HISTORY: Muscle weakness (generalized). TECHNIQUE: Multiplanar multisequence MRI of the Lumbar spine was performed. COMPARISON: CR XR LUMBAR SPINE COMPLETE from 09/29/2022 FINDINGS: Conus medullaris is at normal level. There is no evidence of conus mass nor subjacent clumping of in trathecal nerve roots to suggest arachnoiditis. The distal thecal sac appears unremarkable.There is no evidence of Tarlov intrasacral cysts nor other significant findings within the sacral canal Bones:There are no fractures nor ominous osseous lesions in the lumbar vertebral bodies and visualize d sacrum. With respect to the individual levels... T12-L1: Unremarkable L1-2: Normal disc height and signal. No disc herniation nor central canal stenosis.No foraminal steno sis L2-3: Normal disc height and signal.. However, there is a right paracentral disc herniation which ex tends posteriorly 4 mm and is approximately 20 mm wide, extending into the floor of the exiting right neural foramen at this level. This disc protrusion slightly indents the anterior right side of the thecal sac. Although it does extend into the exiting right neural foramen, there does not appear to be significant foraminal stenosis due to the relatively preserved disc height at this level. Facet j oints appear unremarkable at this level. No ligamentum flavum hypertrophy. L3-4: Normal disc height. No disc herniation or central canal stenosis.No foraminal stenosis.No face t arthropathy. L4-5: Normal disc height and signal. Mild central subligamentous annular bulging posteriorly. No la rge disc herniation nor central canal stenosis at this level. No foraminal stenosis. No significant facet arthrosis. L5-S1: Relatively preserved disc height and signal. No significant disc herniation or central canal stenosis. No significant facet arthropathy and no significant foraminal stenosis. Soft tissues: paraspinal soft tissues appear unremarkable. IMPRESSION: 1. The main findings at L2-3 level where there is a right-sided disc protrusion as described above wh ich extends into the floor of the exiting right neural foramen at this level. See above discussion. 2. There is mild central subligamentous annular bulging at L4-5 level but no prominent disc herniatio n nor canal stenosis at this level. 3. There is no significant facet arthropathy in the lumbosacral spinal column. DATA REPOSITORY:
== END 2024-01-16 02:10 ==
LOC: DI 01:50
PROVIDERS: PCP Family Medicine; Visit Provider Family Medicine
DX: M51.26 Other intervertebral disc displacement, lumbar region (principal); M99.63 Osseous and subluxation stenosis of intervertebral foramina of lumbar region
CPT/HCPCS: 72148

== ENCOUNTER 2024-03-11 12:26 | Outpatient (CLI) | payer MEDICARE, SELFPAY ==
[2024-03-11 12:36] VITALS: BP 106/79; PULSE 59; RESP 18; TEMP 36.9; O2SAT 96
--- NOTE | 2024-03-11 12:39 | PDOC.PAIN_ITS ---
Date of service: 03/11/24 Time of Service: 13:08 Pain Managment Procedure Note Procedure Note Procedure Note: Lumbar Transforaminal Epidural Steroid Injection ? Location: RIGHT L2-3 ? Pre-procedure Diagnosis: M54.17-Radiculopathy, lumbosacral region M54.16 Radiculopathy, lumbar region ? Post-procedure Diagnosis:? The same as above ? Sedation:? none ? Estimated blood loss:? less than 2 cc ? Surgeon:? Hansel Springer MD COMMENT: Pt has HNP right L2-3 ? Procedure Detail:?? The procedure and potential risks were explained to the patient and informed written consent was obtained. The patient was escorted to the procedure room and placed in the prone position. Pillows were utilized for proper positioning and comfort. Time out was performed in the procedure room with nursing staff confirming the patient's identity, procedure to be performed, allergies, and any blood thinning or anti-platelet medications. The patient's lower back was prepped with ChloraPrep and draped in a sterile fashion. Sterile gloves were used, a face mask was worn, and new single dose vials of all medications were used with the top being swabbed with alcohol and given time to dry prior to withdrawal of medication. A right-sided oblique fluoroscopic view was obtained, with visualization of L2-3. Lidocaine 1% was used to anesthetize the skin. The tip of a 22-gauge, Quincke needle was advanced toward the 6 o'clock position of the superior pedicle at the target level.? It was advanced just under the pedicle to the neural foramen L2-3. Correct needle placement was confirmed through review of the fluoroscopy. Next, following negative asp iration, 1cc's of Omnipaque 240 contrast was injected under live fluoroscopy which showed good flow throughout the epidural space and no evidence of vascular flow or flow into adjacent compartments. Next, following negative aspiration, 40mg Depo-Medrol and 0.5ml of 0.5% bupivacaine was injected. The needle was gently removed.? ? The patient tolerated the procedure well.? Permanent images saved and recorded. Plan:? Follow up prn PAIN: PRE PROCEDURE 10/05 POST PROCEDURE 07/05 COMMENT: repeat prn
[2024-03-11 12:56] VITALS: O2SAT 96
[2024-03-11 13:00] VITALS: O2SAT 96
--- NOTE | 2024-03-11 13:10 | DI.RAD_ITS ---
Exam(s) XR PAIN CLINIC LUMBAR SP 2V EXAM: XR PAIN CLINIC LUMBAR SP 2V CLINICAL HISTORY: Dx: Lumbar Radiculopathy TECHNIQUE: 2D and realtime digital imaging was performed. CONTRAST MATERIAL: Refer to procedure report. COMPARISON: No exams were available for comparison FINDINGS: Fluoroscopy was provided for Dr. Springer during the performance of a epidural steroid injection. Pl ease refer to the procedure report for complete details. Ka,r=7.83 mGy IMPRESSION: RADIATION DOSE DELIVERED: 0.0 0.0 0
[2024-03-11] MEDS: Omnipaque 240 MG/ML 50 ML BTL IJ (13:12)
[2024-03-11] MEDS: Bupivacaine 0.5% Pres-Free 10 ML VIAL IJ (13:12)
[2024-03-11] MEDS: Nerve Block Tray 1 EACH MC (13:13)
[2024-03-11] MEDS: methylPREDNISolone ACETATE 40 MG/ML VIAL IJ (13:13)
== END 2024-03-11 12:27 | disposition home or self-care (01) ==
LOC: PC 12:26
PROVIDERS: PCP Family Medicine; Visit Provider Anesthesiology Pain Medicine
DX: M54.50 Low back pain, unspecified (principal); M54.17 Radiculopathy, lumbosacral region; M54.16 Radiculopathy, lumbar region
CPT/HCPCS: 00123; 64483; 72100; J0665; J1010; Q9967

== ENCOUNTER 2024-04-04 20:01 | Emergency (ER) | payer MEDICARE, SELFPAY ==
[2024-04-04] VITALS (25 sets, daily range): BP systolic 55–179; BP diastolic 40–119; PULSE 48–66; RESP 7–25; TEMP 36; O2SAT 90–100
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
--- OUTSIDE RECORDS SUMMARY | 2024-04-04 20:19 | XMS_ITS | Encounter Summary ---
Author Organization [place] [address] Care Team Providers Care Supersonic Engineer Name Role Phone April Ramirez MD Primary Care Provider [phone] Encounter Details Date Type Department Care Team (Late st Contact Info) Description 02/14/2023 Telephone [place] [phone] Deja Dale Social History Tobacco Use Types Packs/Day Years Used Date Smoking Tobacco: Some Days Cigarettes Passive Smoke Exposure: Never Smokeless Tobacco: Never Alcohol Use Standard Drinks/Week Comments Not Currently 0 (1 standard drink = 0.6 oz pur e alcohol) [facility] Inpatient Questions Answer Date Recorded Does Anyone Try to Keep You From Having Contact with Others or Doing Things Outside Your Home? no 07/24/2022 Feels Threatened by Someone no 06/27 Feels Unsafe at Home or Work/School no 07/24/2022 Physical Signs of Abuse Present no 07/24/2022 Sex and Gender Information Value Date Recorded Sex Assigned at Not on file Gender Identity Not on file Sexual Orientation Not on file documented as of this encounter Miscellaneous Notes * Telephone Encounter - Deja Dale - 02/14/2023 9:23 AM EST [id number] to reschedule cancelled appointment 02/15/23 (from recall dated 12/07/2022): EMILIA-claudication 3 MONTH F/U Columbo/ANGELINE documented in this encounter Plan of Treatment Not on file documented as of this encounter Visit Diagnoses Not on filedocumented in this encounter Care Teams Supersonic Engineer Relationship Specialty Start Date End Date April Ramirez MD [address] [place] [address] PCP - General Family Medicine 07/24/22 documented as of this encounter
--- OUTSIDE RECORDS SUMMARY | 2024-04-04 20:19 | XMS_ITS | Encounter Summary ---
[place] [address] Care Team Providers Care Dust Operator Name Role Phone April Ramirez MD Primary Care Provider [phone] Encounter Details Date Type Department Care Team (Latest Contact Info) Description 08/25/2022 Travel Social History Tobacco Use Types Packs/Day Years Used Date Smoking Tobacco: Some Days Cigarettes Passive Smoke Exposure: Never Smokeless Tobacco: Never Alcohol Use Standard Drinks/Week Comments Not Currently 0 (1 standard drink = 0.6 oz pur e alcohol) [facility] IPV Inpatient Questions Answer Date Recorded Does Anyone [...] on file documented as of this encounter Plan of Treatment Not on file documented as of this encounter Visit Diagnoses Not on filedocumented in this encounter Care Teams Dust Operator Relationship Specialty Start Date End Date April Ramirez MD [address] [place], [place] [address] PCP - General Family Medicine 07/24/22 documented as of this encounter
--- OUTSIDE RECORDS SUMMARY | 2024-04-04 20:19 | XMS_ITS | Encounter Summary ---
Author Organization Formerly [facility] [place] [address] Care Team Providers Care Clerical Transcriber Name Role Phone April Ramirez MD Primary Care Provider [phone] Encounter Details Date Type Department Care Team ([facility] st Contact Info) Description 09/19/2022 Telephone [place] [phone] April Esquivel Social History Tobacco Use Types Packs/Day Years Used Date Smoking Tobacco: Some Days Cigarettes Passive Smoke Exposure: Never Smokeless Tobacco: Never Alcohol Use Standard Drinks/Week Comments Not Currently 0 (1 standard drink = 0.6 oz pur e alcohol) [facility] Inpatient Questions Answer Date Recorded Does Anyone [...] encounter Miscellaneous Notes * Telephone Encounter - April Esquivel - 09/19/2022 9:51 AM EDT LM for patient regarding appointment on 09/25/22 with Sloane Montes APRN. Due to a master schedulechange we canceled appointment. Asked pt to call office so we can help in assisting in reschedulingappointment. documented in this encounter Plan of Treatment Not on file documented as of this encounter Visit Diagnoses Not on filedocumented in this encounter Care Teams Clerical Transcriber Relationship Specialty Start Date End Date April Ramirez MD [address] [place] [address] PCP - General Family Medicine 07/24/22 documented as of this encounter
--- OUTSIDE RECORDS SUMMARY | 2024-04-04 20:19 | XMS_ITS | Encounter Summary ---
[place] [address] Care Team Providers Care Commercial Lending Vice President Name Role Phone April Ramirez MD Primary Care Provider [phone] Encounter Details Date Type Department Care Team (Late st Contact Info) Description 09/06/2022 1:30 PM EDT Tech Visit [place] [phone] Marilu [place] Aortic disorder Social History Tobacco Use Types Packs/Day Years Used Date Smoking Tobacco: Some Days Cigarettes Passive Smoke Exposure: Never Smokeless Tobacco: Never Alcohol Use Standard Drinks/Week Comments Not Currently 0 (1 standard drink = 0.6 oz pur e alcohol) IPV Inpatient Questions Answer Date Recorded Does [...] on file documented as of this encounter Procedures Procedure Name Priority Date/Time Associated Diagnosis Comments EMILIA, LEGS, MULTIPLE LEVELS Routine 09/06/2022 1:32 PM EDT Aortic disorder documented in this encounter Results * EMILIA, legs, multiple levels (09/06/2022 1:32 PM EDT) VB Text Report Department: Vascular Surgery Lab Patient: [id number] (KATHI MARQUEZ) CPT: 35056 Referring Physician: [address] [address] ?? Indications: Hx of aorto bi-fem, w/ left ABF limb thrombectomy, ? peripheral perfusion Diabetes mellitus: No Findings: Right ?Pressure (mm Hg) ?? EMILIA ??Waveform ? Brachial Artery ?84 ? Common Femoral Artery ?Bi-Triphasic ?? Popliteal Artery ? Bi-Triphasic ?? Dorsalis Pedis (Ankle) Artery ?74 ?0.88 ??Owen-Biphasic ?? Posterior Tibial (Ankle) Artery ??81 ?0.96 ??Bi-Triphasic ?? Left ? Pressure (mm Hg) ?? EMILIA ??Waveform ? Brachial Artery ?79 ? Common Femoral Artery ?Bi-Triphasic ?? Popliteal Artery ? Biphasic ? Dorsalis Pedis (Ankle) Artery ?74 ?0.88 ??Owen-Biphasic ?? Posterior Tibial (Ankle) Artery ??81 ?0.96 ??Biphasic ? Interpretation: RIGHT: Mild lower extremity arterial occlusive disease. Findings are suggestive of tibioperoneal disease. LEFT: Mild lower extremity arterial occlusive disease. Findings are suggestive of fem-pop disease. Comparison: ??No previous study in our vascular lab database for comparison. Electronically Signed by: MEI MORENO on 2022-09-12 08:45:39 AM [facility] VB Text Report End of Report [facility] 09/06/2022 1:[address] [place] [address] MD VASCULAR ORDERABLES [facility] documented in this encounter Visit Diagnoses Diagnosis Aortic disorder Unspecified disorders of arteries and arterioles documented in this encounter Care Teams Commercial Lending Vice President Relationship Specialty Start Date End Date April Ramirez MD [address] [place] [address] PCP - General Family Medicine 07/24/22 documented as of this encounter
--- OUTSIDE RECORDS SUMMARY | 2024-04-04 20:19 | XMS_ITS | Encounter Summary ---
[place] [address] Care Team Providers Care Installer Molding And Trim Name Role Phone April Ramirez MD Primary Care Provider [phone] Encounter Details Date Type Department Care Team (Latest Contact Info) Description 09/06/2022 Travel Social History Tobacco Use Types Packs/Day [...] on filedocumented in this encounter Care Teams Installer Molding And Trim Relationship Specialty Start Date End Date April Ramirez MD [address] [place], [place] [address] PCP - General Family Medicine 07/24/22 documented as of this encounter
--- OUTSIDE RECORDS SUMMARY | 2024-04-04 20:19 | XMS_ITS | Encounter Summary ---
Author Organization [facility] [place] [address] Care Team Providers Care Record Press Operator Name Role Phone April Ramirez MD Primary Care Provider [phone] Reason for Referral * Diagnostic Test (Routine) - Closed Specialty Diagnoses / Procedures Referred By Contac t Referred To Contact Diagnoses Aortic disorder Procedures EMILIA, legs, multiple levels Lubna Morales PA [facility] [place] [address] [facility] Vascular Lab [address] [place] [address] Referral ID Status Reason Start Date Expiration Date V isits Requested Visits Authorized [id number] Closed Specialty Service Requested 08/25/2022 08/25/2023 1 1 Encounter Details Date Type Department Care Team (Late st Contact Info) Description 08/25/2022 9:30 AM EDT Office [place] [address] Lubna Morales PA Aortic disorder Social History Tobacco Use Types Packs/Day Years Used Date Smoking Tobacco: Some Days Cigarettes Passive Smoke Exposure: Never Smokeless Tobacco: Never Tobacco Cessation:Ready to Q uit: Not Asked; Counseling Given: Not Answered Alcohol Use Standard Drinks/Week Comments Not Currently 0 (1 standard drink = 0.6 oz pur e alcohol) [facility] Inpatient Questions Answer Date Recorded Does Anyone [...] on file documented as of this encounter Last Filed Vital Signs Vital Sign Reading Time Taken Comments Blood Pressure 101/68 08/25/2022 9:48 AM EDT Pulse 71 08/25/2022 9:48 AM EDT Temperature - - Respiratory Rate - - Oxygen Saturation 99% 08/25/2022 9:48 AM EDT Inhaled Oxygen Concentration - - Weight 82.1 kg (181 lb) 08/25/2022 9:48 AM EDT Height 177.8 cm (5' 10) 08/25/2022 9:48 AM EDT Body Mass Index 25.97 08/25/2022 9:48 AM EDT documented in this encounter Progress Notes * Lubna Morales PA - 08/25/2022 9:30 AM EDT Vascular Follow-Up Reason for Visit: Kathi Marquez is a 57 y.o. male presenting for wound check. HPI: 57 y.o. male with PMH: HTN, anxiety, pt was admitted 07/24/2022 after he was seen at an OSH reporting 24-28 hours of paresthesias in bilateral lower extremities along with significant RLE pain inhibiting movement. CT at the outside hospital identified an aortic occlusion, the patient was started on a heparin drip and transferred to [facility] ED for further evaluation by vascular surgery. Pt subsequently underwent the below listed procedures and was discharged 08/02/2022 Today pt presents for a wound check. Pt states he is doing well overall at home and is able to do all of his ADLs at home. He is accompanied by his son at the bed side. Pt denies any sudden back or belly pain. Patient denies any claudication, rest pain, wounds or tissue loss on their lower extremities, fever, chills, chest pain or shortness of breath. Patient states being compliant with their daily medicine regimen including: Eliquis, ASA, statin. Prior Vascular Hx: 07/25/2022: Aortobifemoral bypass. 07/26/2022: Thrombectomy/revision of occluded left aortobifemoral bypass limb. Aortoiliac thromboembolectomy. Left SFA thromboembolectomy. Atherosclerotic RF: DM (n) HTN (y) CAD (n) CHF (n) HLD (y) CVA (n) Problem List: Patient Active Problem List Diagnosis Code Aortic disorder I77.9 Renal insufficiency N28.9 Primary hypertension I10 Anxiety F41.9 Fibromyalgia M79.7 Medications: Current Outpatient Medications on File Prior to Visit Medication Sig Dispense Refill aspirin 81 mg chewable tablet Take 81 mg by mouth daily. 30 tablet 3 atenoloL (Tenormin) 50 mg tablet Take 1 tablet by mouth daily. 90 tablet 3 losartan (Cozaar) 25 mg tablet Take 1 tablet by mouth daily. 90 tablet 3 pregabalin (Lyrica) 100 mg capsule Take 1 capsule by mouth 3 times daily. 90 tablet 0 sertraline (Zoloft) 100 mg tablet Take 2 tablets by mouth daily. 90 tablet 3 clonazePAM (KlonoPIN) 0.5 mg tablet Take 1 tablet by mouth 3 times daily as needed for Anxiety. 60 tablet 0 oxyCODONE (Roxicodone) 5 mg tablet Take 1 tablet by mouth every 6 hours as needed for Pain. 12 tablet 0 apixaban (Eliquis) 5 mg tablet Take 1 tablet by mouth 2 times daily. 60 tablet 11 losartan (Cozaar) 25 mg tablet Take 25 mg by mouth daily. pregabalin (Lyrica) 75 mg capsule Take 75 mg by mouth 3 times daily. simvastatin (Zocor) 10 mg tablet Take 10 mg by mouth nightly. sertraline (Zoloft) 100 mg tablet Take 200 mg by mouth daily. atenoloL (Tenormin) 50 mg tablet Take 50 mg by mouth daily. clonazePAM (KlonoPIN) 1 mg tablet Take 1 mg by mouth 3 times daily as needed for Anxiety. sildenafiL (Revatio) 20 mg tablet Take 20 mg by mouth. 2-3 TIMES DAILY DIRECTED No current facility-administered medications on file prior to visit. Allergies: Allergies Allergen Reactions Trazodone Wellbutrin [Bupropion] ROS GENERAL: Denies weight change, fever, chills, night sweats SKIN: Reports Abdominal incision Head: Denies recent head trauma, headache, EYE: Denies changes in vision, acute visual loss, ENT: Denies rhinorrhea, sore throat, epistaxis CARDIAC: Denies chest pain, pressure, palpitations RESPIRATORY: Denies cough, shortness of breath GI: Denies abdominal pain, nausea, vomiting, melena : Denies Change in frequency of urination, dysuria, hematuria MSK: Denies muscle pain, weakness, or swelling of extremities, NEURO: Denies dizziness, loss of conscious, seizures, numbness or tingling in extremities, Physical Exam: BP 101/68 (BP Location (NBP): Right arm, Patient Position: Sitting, BP Cuff Sizes: Adult (25-34 cm)) Pulse 71 Ht 177.8 cm (5' 10) Wt 82.1 kg (181 lb) SpO2 99% BMI 25.97 kg/m?? Physical Exam GEN: Alert, appeared stated age in no acute distress SKIN: Abdominal incision helga clean dry and intact. HEENT: Normocephalic and atraumatic CV: Regular rate and rhythm. S1 and S2 present on auscultation PULM: Lung sounds clear to auscultation bilaterally ABD: Soft, non-tender to palpation, non-distended. No palpable aortic plus or abdominal masses. NEURO: No gross sensory or motor deficits. Vascular Exam: R L Radial 2/2 2/2 Femoral 2/2 2/2 DP 2/2 2/2 PT 2/2 2/2 Labs: No results found for this or any previous visit (from the past 24 hour(s)). Assessment and Plan: Kathi Marquez 57 y.o. male with PMH: See HPI. Pt's abdominal incision appeared well healed. Pt's helga were removed and he tolerated the procedure well pt can shower normallyand pat the incision to dry. Pt to follow up at the dates listed below. Pt to continue with daily me dications. Future Appointments Date Time Provider Department Center 09/06/2022 1:00 PM [facility] [address] [facility] [address] CT [facility] Rad 09/06/2022 1:30 PM Marilu Kaur [facility] VAS LAB [facility] NASSARSIENNA 09/06/2022 2:00 PM Mei Moreno MD [facility] V SURG [facility] 09/25/2022 3:00 PM LAB, THREE L Lab 3L LINDSEY MOROCHOMO 09/25/2022 4:30 PM Sloane Montes APRN [facility] NEPH [facility] Lubna Morales PA-C Department of Vascular Surgery documented in this encounter Plan of Treatment Not on file documented as of this encounter Results * EMILIA, legs, multiple levels (09/06/2022 1:32 PM EDT) VB Text Report Department: Vascular Surgery Lab Patient: [id number] (KATHI MARQUEZ) CPT: 02693 Referring Physician: [address] [address] ?? Indications: Hx of aorto bi-fem, w/ left ABF limb thrombectomy, ? peripheral perfusion Diabetes mellitus: No Findings: Right ?Pressure (mm Hg) ?? EMILIA ??Waveform ? Brachial Artery ?84 ? Common Femoral Artery ?Bi-Triphasic ?? Popliteal Artery ? Bi-Triphasic ?? Dorsalis Pedis (Ankle) Artery ?74 ?0.88 ??Mclennan-Biphasic ?? Posterior Tibial (Ankle) Artery ??81 ?0.96 ??Bi-Triphasic ?? Left ? Pressure (mm Hg) ?? EMILIA ??Waveform ? Brachial Artery ?79 ? Common Femoral Artery ?Bi-Triphasic ?? Popliteal Artery ? Biphasic ? Dorsalis Pedis (Ankle) Artery ?74 ?0.88 ??Mclennan-Biphasic ?? Posterior Tibial (Ankle) Artery ??81 ?0.96 [...] arterioles documented in this encounter Care Teams Record Press Operator Relationship Specialty Start Date End Date April Ramirez MD [address] [place] [address] PCP - General Family Medicine 07/24/22 documented as of this encounter
--- OUTSIDE RECORDS SUMMARY | 2024-04-04 20:19 | XMS_ITS | Clinical Summary ---
Author Organization [facility] [place] [address] Care Team Providers Care Slip Sheeter Name Role Phone April Ramirez MD Primary Care Provider [phone] Allergies Active Allergy Reactions Criticality Noted Date Comments Trazodone High 01/30/2022 Bupropion Medium 01/30/2022 Medications Medication Sig Dispensed Refills Start Date End Date Status losartan (Cozaar) 25 mg tablet Take 25 mg by mouth daily. Active pregabalin (Lyrica) 75 mg capsule Take 75 mg by mouth 3 times daily. Active simvastatin (Zocor) 10 mg tablet Take 10 mg by mouth nightly. Active sertraline (Zoloft) 100 mg tablet Take 200 mg by mouth daily. Active atenoloL (Tenormin) 50 mg tablet Take 50 mg by mouth daily. Active sildenafiL (Revatio) 20 mg tablet Take 20 mg by mouth. 2-3 TIMES DAILY DIRECTED Active clonazePAM (KlonoPIN) 1 mg tablet Take 1 mg by mouth 3 times daily as needed for Anxiety. Active aspirin 81 mg chewable tablet Take 81 mg by mouth daily. 30 tablet 3 08/02/2022 Active atenoloL (Tenormin) 50 mg tablet Take 1 tablet by mouth daily. 90 tablet 3 08/02/2022 Active losartan (Cozaar) 25 mg tablet Take 1 tablet by mouth daily. 90 tablet 3 08/02/2022 Active pregabalin (Lyrica) 100 mg capsule Take 1 capsule by mouth 3 times daily. 90 tablet 08/02/2022 Active sertraline (Zoloft) 100 mg tablet Take 2 tablets by mouth daily. 90 tablet 3 08/02/2022 Active clonazePAM (KlonoPIN) 0.5 mg tablet Take 1 tablet by mouth 3 times daily as needed for Anxiety. 60 tablet 08/02/2022 Active oxyCODONE (Roxicodone) 5 mg tablet Take 1 tablet by mouth every 6 hours as needed for Pain. 12 tablet 08/02/2022 Active apixaban (Eliquis) 5 mg tablet Take 1 tablet by mouth 2 times daily. 60 tablet 11 08/10/2022 Active Active Problems Problem Noted Date Diagnosed Date Aortic disorder 07/24/2022 Renal insufficiency 02/06/2022 Primary hypertension 02/06/2022 Anxiety 02/06/2022 Fibromyalgia 02/06/2022 Social History Tobacco Use Types Packs/Day Years [...] on file Sexual Orientation Not on file Last Filed Vital Signs Vital Sign Reading Time Taken Comments Blood Pressure 79/56 09/06/2022 2:09 PM EDT Pulse 65 09/06/2022 2:05 PM EDT Temperature 36.5 ??C (97.7 ??F) 08/02/2022 11:40 AM E DT Respiratory Rate 16 08/02/2022 11:40 AM EDT Oxygen Saturation 98% 09/06/2022 2:05 PM EDT Inhaled Oxygen Concentration - - Weight 82.1 kg (181 lb) 09/06/2022 2:05 PM EDT Height 177.8 cm (5' 10) 09/06/2022 2:05 PM EDT Body Mass Index 25.97 09/06/2022 2:05 PM EDT Plan of Treatment Health Maintenance Due Date Last Done Comments CT Colonography 1967 Colonoscopy 1967 Colorectal Cancer Screening 1967 FIT DNA 1967 FIT 1967 Sigmoidoscopy (10 year) with FIT yearly 1967 Sigmoidoscopy 1967 HIV screen 08/13/1985 Hepatitis C Screening 08/13/1985 Hepatitis B vaccine (0-59 yrs) (1) 08/13/1986 Pneumoccocal Vaccine: 50+ (1 of 2 - PCV) 08/13/1986 Tetanus/Diphtheria/Pertussis Vaccines (1 - Tdap) 08/13/1986 Zoster vaccine (1 of 2) 08/13/2017 Advance Directive 08/13/2022 Covid-19 Vaccine (1 - 2023-2 5 season) 2023 Influenza (Flu) vaccine (1 o f 1 - Influenza standard series) 10/28/2023 Diabetes Screening (HgbA1C o r Glucose) 08/02/2025 08/02/2022, 08/01/2022, 08/01/2022, Additional history exists Medical Devices Implanted Type Area Field Service Tech Device Identifier Shelf Expiration Date Model / Serial / Lot Graft Vascular [id number] Bifrc Thor Collagen Impregnated ([id number]) - [id number] Implanted:Qty: 1 on 07/25/2022 by Marco Dior MD at [facility] IMPLANTS N/A: Aorta [employer] 01/25/2027 [id number] / [id number] / [id number] Graft Vascular [id number] Bifrc Collagen Coated Double ([id number]) - [id number] Implanted:Qty: 1 on 07/25/2022 by Marco Dior MD at [facility] IMPLANTS N/A: Aorta [employer] 04/26/2027 [id number] / [id number] Procedures Procedure Name Priority Date/Time Associated Diagnosis Comments BASIC METABOLIC PANEL Routine 08/02/2022 5:02 AM EDT from Last 3 Months or Most Recently Relevant to Health Maintenance Results * (ABNORMAL) Basic Metabolic Panel (non-fasting) (08/02/2022 5:02 AM EDT) Glucose 120 65 - 199 mg/dL [facility] Comment:Diabetes: >=200 mg/d L plus symptoms Blood Urea Nitrogen 19 10 - 20 mg/dL [facility] Creatinine 0.97 0.80 - 1.50 mg/dL [facility] Sodium 136 135 - 145 mmol/L [facility] Potassium 3.2(L) 3.5 - 5.0 mmol/L [facility] Comment: Please note: ??Patients with WBC >100,000 may have falsely elevated Potassium levels. ??For accurate Potassium quantification in these patients send serum separator tube (gold top) for subsequent determinations. ??Contact the Clinical Chemistry Laboratory if there are any questions. Chloride 103 98 - 107 mmol/L [facility] Carbon Dioxide 22 22 - 31 mmol/L [facility] Anion Gap 11 5 - 15 mmol/L [facility] Calcium 8.5 8.5 - 10.5 mg/dL [facility] Est Glomerular Filtration Rate 93 >=60 mL/min/1. 73 m?? [facility] Comment: This patient's estimated GFR was calculated using the 2020 CKD-EPI equation. The estimated GFR can vary from the measured GFR by up to 30% in the absence of rapidly changing kidney function. Assessment of the estimated GFR is not appropriate when creatinine concentrations are rapidly changing. For clinical situations in which a more precise estimate of GFR is necessary, consider alternative methods of GFR estimation such as a 24-hour urine creatinine clearance. Assignment of CKD stage 1-5 for patients with an eGFR near the transition point between stages may be based on clinical assessment of muscle mass and symptoms in addition to eGFR. Blood 08/02/2022 5:02 AM EDT 08/02/2022 5:43 AM EDT Narrative Resulting Agency Comment Spec In Lab Marco Dior MD CHEMISTRY ORDERABLES [facility] [place] [address] from Last 3 Months or Most Recently Relevant to Health Maintenance Advance Directives * Attempt Cardiopulmonary Resuscitation - Inpatient (Latest Code Status on File) Date Activated Date Inactivated Comments 07/24/2022 10:25 PM 08/02/2022 3:14 PM Question Answer Comments Code Status decision made by: Patient Care Teams Slip Sheeter Relationship Specialty Start Date End Date April Ramirez MD [address] [place] [address] PCP - General Family Medicine 07/24/22
--- OUTSIDE RECORDS SUMMARY | 2024-04-04 20:19 | XMS_ITS | Encounter Summary ---
Author Organization [facility] [place] [address] Care Team Providers Care Garbage Pick Up Man Name Role Phone April Ramirez MD Primary Care Provider [phone] Encounter Details Date Type Department Care Team (Late st Contact Info) Description 09/06/2022 2:00 PM EDT Office Visit [place] [id number] Alaina Mares MD [facility] [place] [address] Intermittent claudication Social History Tobacco Use Types Packs/Day Years Used Date Smoking Tobacco: Some Days Cigarettes Passive Smoke Exposure: Never Smokeless Tobacco: Never Alcohol Use Standard Drinks/Week Comments Not Currently 0 (1 standard drink = 0.6 oz pur e alcohol) [facility] Inpatient Questions Answer Date Recorded Does Anyone [...] Pulse 65 09/06/2022 2:05 PM EDT Temperature - - Respiratory Rate - - Oxygen Saturation 98% 09/06/2022 2:05 PM EDT Inhaled Oxygen Concentration - - Weight 82.1 kg (181 lb) 09/06/2022 2:05 PM EDT Height 177.8 cm (5' 10) 09/06/2022 2:05 PM EDT Body Mass Index 25.97 09/06/2022 2:05 PM EDT documented in this encounter Progress Notes * Aalina Mares MD - 09/06/2022 2:00 PM EDT Images from the original note were not included. OUTPATIENT VASCULAR SURGERY FOLLOW-UP Reason for Visit: post-op visit History of Present Illness: Kathi Marquez is a 57 y.o. male here for follow-up s/p He was last seen by Lubna Morales on 08/25/22. He is s/p emergent aortobifemoral bypass on 07/25/22 and subsequent thrombectomy of the left limb the following day. He returns today fot a CT scan to assess the thombus burden in his paravisceral aorta. He reports that his pain has been improving and he is more mobile. He denies any sx of claudication. He has beentaking ASA, eliquis and Zocor. He continues to smoke. Prior Vascular Hx: 07/25/2022: Aortobifemoral bypass. 07/26/2022: Thrombectomy/revision of occluded left aortobifemoral bypass limb. Aortoiliac thromboembolectomy. Left SFA thromboembolectomy. Atherosclerotic Risk Factors: (n) DM (y) HTN (n) CAD (n) CHF (n) Hyperlipidemia (n) CVA reports that he has been smoking cigarettes. He has been smoking an average of .25 packs per day. He has never been exposed to tobacco smoke. He has never used smokeless tobacco. Patient Active Problem List Diagnosis Code Aortic disorder I77.9 Renal insufficiency N28.9 Primary hypertension I10 Anxiety F41.9 Fibromyalgia M79.7 Current Outpatient Medications: aspirin 81 mg chewable tablet, Take 81 mg by mouth daily., Disp: 30 tablet, Rfl: 3 atenoloL (Tenormin) 50 mg tablet, Take 1 tablet by mouth daily., Disp: 90 tablet, Rfl: 3 losartan (Cozaar) 25 mg tablet, Take 1 tablet by mouth daily., Disp: 90 tablet, Rfl: 3 pregabalin (Lyrica) 100 mg capsule, Take 1 capsule by mouth 3 times daily., Disp: 90 tablet, Rfl: 0 sertraline (Zoloft) 100 mg tablet, Take 2 tablets by mouth daily., Disp: 90 tablet, Rfl: 3 clonazePAM (KlonoPIN) 0.5 mg tablet, Take 1 tablet by mouth 3 times daily as needed for Anxiety., Disp: 60 tablet, Rfl: 0 oxyCODONE (Roxicodone) 5 mg tablet, Take 1 tablet by mouth every 6 hours as needed for Pain., Disp:12 tablet, Rfl: 0 apixaban (Eliquis) 5 mg tablet, Take 1 tablet by mouth 2 times daily., Disp: 60 tablet, Rfl: 11 losartan (Cozaar) 25 mg tablet, Take 25 mg by mouth daily., Disp: , Rfl: pregabalin (Lyrica) 75 mg capsule, Take 75 mg by mouth 3 times daily., Disp: , Rfl: simvastatin (Zocor) 10 mg tablet, Take 10 mg by mouth nightly., Disp: , Rfl: sertraline (Zoloft) 100 mg tablet, Take 200 mg by mouth daily., Disp: , Rfl: atenoloL (Tenormin) 50 mg tablet, Take 50 mg by mouth daily., Disp: , Rfl: sildenafiL (Revatio) 20 mg tablet, Take 20 mg by mouth. 2-3 TIMES DAILY DIRECTED, Disp: , Rfl: clonazePAM (KlonoPIN) 1 mg tablet, Take 1 mg by mouth 3 times daily as needed for Anxiety., Disp: ,Rfl: No current facility-administered medications for this visit. Allergies Allergen Reactions Trazodone Wellbutrin [Bupropion] Review of Systems: Constitutional (weight change, fever) - Denies Neuro (dizziness, seizures, numbness, tingling) - Denies Eyes (vision) - Denies Ears, nose, throat (hearing) - Denies Cardiovascular (CP) - Denies Respiratory (SOB) - Denies GI (abd pain, nausea, emesis, blood in stool) - Denies (hematuria, dysuria, frequency) - Denies Muscoloskeletal (extremity pain, weakness) - Denies Skin (ulcers, rashes) - Denies Functional Status/Social Hx: Lives at home, + Tobacco Use Family Hx: Negative for Thrombosis, Bleeding Disorders Physical Exam: BP (!) 79/56 (BP Location (NBP): Left arm, Patient Position: Sitting, BP Cuff Sizes: Adult (25-34 cm)) Pulse 65 Ht 177.8 cm (5' 10) Wt 82.1 kg (181 lb) SpO2 98% BMI 25.97 kg/m?? General - NAD, appears stated age Neuro - Alert and Oriented, Motor Sensory grossly intact Skin - No prominent markings or lesions Ear, Nose, Throat - No masses, No lesions Cardiac - RRR, no murmurs Lungs - Clear Abd - Soft, NT, ND, No palpable pulsatile masses, well healed midline incision and femoral incisions Musculoskeletal- full ROM upper and lower extremities Psych- alert oriented X3 Extremities - Warm, pink, no edema, brisk capillary refill Vascular Exam: R L Carotid 2/2 bruit (n) 2/2 bruit (n) Radial 2/2 2/2 Femoral 2/2 2/2 Popliteal 0/2 0/2 DP 0/2 0/2 PT 0/2 0/2 Labs: Recent Results (from the past 72 hour(s)) EMILIA, legs, multiple levels Result Value Ref Range VB Text Report Department: Vascular Surgery Lab Patient: [id number] (KATHI MARQUEZ) CPT: 26755 Referring Physician: BOONE LANE Indications: Hx of aorto bi-fem, w/ left ABF limb thrombectomy, ? peripheral perfusion Diabetes mellitus: No Findings: Right Pressure (mm Hg) EMILIA Waveform Brachial Artery 84 Common Femoral Artery Bi-Triphasic Popliteal Artery Bi-Triphasic Dorsalis Pedis (Ankle) Artery 74 0.88 Kimble-Biphasic Posterior Tibial (Ankle) Artery 81 0.96 Bi-Triphasic Left Pressure (mm Hg) EMILIA Waveform Brachial Artery 79 Common Femoral Artery Bi-Triphasic Popliteal Artery Biphasic Dorsalis Pedis (Ankle) Artery 74 0.88 Kimble-Biphasic Posterior Tibial (Ankle) Artery 81 0.96 Biphasic Interpretation: RIGHT: Mild lower extremity arterial occlusive disease. Findings are suggestive of tibioperoneal disease. LEFT: Mild lower extremity arterial occlusive disease. Findings are suggestive of fem-pop disease. Comparison: No previous study in our vascular lab database for comparison. VB Text Report End of Report Studies: No data to display CTA abdomen/pelvis 09/08/22, images reviewed. Persistent mural thrombus in the juxtarenal aorta. Patent aortobifemoral bypass. Assessment and Plan: 57 y.o. male with peripheral arterial disease status post emergent aortobifemoral bypass, doing well. Continue Eliquis and aspirin. He will follow-up in 3 months with repeat ABIs. documented in this encounter Plan of Treatment Not on file documented as of this encounter Visit Diagnoses Diagnosis Intermittent claudication Peripheral vascular disease, unspecified documented in this encounter Care Teams Garbage Pick Up Man Relationship Specialty Start Date End Date April Ramirez MD [address] [place] [address] PCP - General Family Medicine 07/24/22 documented as of this encounter
--- OUTSIDE RECORDS SUMMARY | 2024-04-04 20:19 | XMS_ITS | Encounter Summary ---
Author Organization [facility] [address] Care Team Providers Care Pr Specialist Name Role Phone April Ramirez MD Primary Care Provider [phone] Reason for Referral * Diagnostic Test (Routine) - Closed Specialty Diagnoses / Procedures Referred By Contac t Referred To Contact Radiology Diagnoses Aortic disorder Procedures CT Angiogram Abdomen & Pelvis w Contrast (Generic) Abiel Del Valle PA [facility] [place] [address] [facility] [place] [address] Referral ID Status Reason Start Date Expiration Date V isits Requested Visits Authorized [id number] Closed Specialty Service Requested 08/02/2022 02/02/2024 1 1 Reason for Visit * Diagnostic Test (Routine) - Closed Specialty Diagnoses / Procedures Referred By Contac t Referred To Contact Radiology Diagnoses Aortic disorder Procedures CT Angiogram Abdomen & Pelvis w Contrast (Generic) Abiel Del Valle PA [facility] [place] [address] [facility] [place] [address] Referral ID Status Reason Start Date Expiration Date V isits Requested Visits Authorized [id number] Closed Specialty Service Requested 08/02/2022 02/02/2024 1 1 Encounter Details Date Type Department Care Team (Latest Contact Info) Description 09/06/2022 1:00 PM EDT - 09/06/2022 11:59 PM EDT Hospital [place] [id number] Marco Dior MD [facility] [place] [address] Aortic disorder Discharge Disposition: Home Social History Tobacco Use Types Packs/Day Years Used Date Smoking Tobacco: Some Days Cigarettes Passive Smoke Exposure: Never Smokeless Tobacco: Never Alcohol Use Standard Drinks/Week Comments Not Currently 0 (1 standard drink = 0.6 oz pur e alcohol) [facility] Inpatient Questions Answer Date Recorded Does [...] on file documented as of this encounter Medications at Time of Discharge Medication Sig Dispensed Refills Start Date End Date aspirin 81 mg chewable tablet Take 81 mg by mouth daily. 30 tablet 3 08/02/2022 atenoloL (Tenormin) 50 mg tablet Take 1 tablet by mouth daily. 90 tablet 3 08/02/2022 losartan (Cozaar) 25 mg tablet Take 1 tablet by mouth daily. 90 tablet 3 08/02/2022 pregabalin (Lyrica) 100 mg capsule Take 1 capsule by mouth 3 times daily. 90 tablet 08/02/2022 sertraline (Zoloft) 100 mg tablet Take 2 tablets by mouth daily. 90 tablet 3 08/02/2022 clonazePAM (KlonoPIN) 0.5 mg tablet Take 1 tablet by mouth 3 times daily as needed for Anxiety. 60 tablet 08/02/2022 oxyCODONE (Roxicodone) 5 mg tablet Take 1 tablet by mouth every 6 hours as needed for Pain. 12 tablet 08/02/2022 apixaban (Eliquis) 5 mg tablet Take 1 tablet by mouth 2 times daily. 60 tablet 11 08/10/2022 losartan (Cozaar) 25 mg tablet Take 25 mg by mouth daily. pregabalin (Lyrica) 75 mg capsule Take 75 mg by mouth 3 times daily. simvastatin (Zocor) 10 mg tablet Take 10 mg by mouth nightly. sertraline (Zoloft) 100 mg tablet Take 200 mg by mouth daily. atenoloL (Tenormin) 50 mg tablet Take 50 mg by mouth daily. sildenafiL (Revatio) 20 mg tablet Take 20 mg by mouth. 2-3 TIMES DAILY DIRECTED clonazePAM (KlonoPIN) 1 mg tablet Take 1 mg by mouth 3 times daily as needed for Anxiety. documented as of this encounter Plan of Treatment Not on file documented as of this encounter Procedures Procedure Name Priority Date/Time Associated Diagnosis Comments CT ANGIOGRAM ABDOMEN AND PELVIS W CONTRAST Routine 09/06/2022 2:17 PM EDT Aortic disorder documented in this encounter Results * CT Angiogram Abdomen & Pelvis w Contrast (Generic) (09/06/2022 2:17 PM EDT) Anatomical Region Laterality Modality Abdomen, Pelvis Computed Tomogra phy Impressions 09/06/2022 3:49 PM EDT Patent aortofemoral bypass graft. Thank you for letting us participate in the care of this patient. ??If you are a health care provider and have any questions regarding this report, please contact the number below. ??For patients who have questions please contact the health care analyst that requested your imaging first. ? Electronically signed by: Deandre Machado MD, [facility] ([phone]), at 09/06/2022 3:49 PM Narrative 09/06/2022 3:49 PM EDT EXAMINATION: CT ANGIOGRAM ABDOMEN AND PELVIS W CONTRAST (GENERIC) CLINICAL HISTORY: s/p aortobifem and left ABF limb thrombectomy TECHNIQUE: Helical CT angiogram of the abdomen and pelvis following the intravenous administration of contrast. Administered 74.0 ml of OMNIPAQUE 350.00 mg/ml. Maximum intensity projection (MIP) were reformatted. Multiplanar images were reviewed and 3-D images were generated on an independent workstation. COMPARISON: CT abdomen pelvis on 07/24/2022 FINDINGS: VASCULAR FINDINGS Abdominal aorta: Limited portions of the distal descending thoracic aorta are widely patent. The infrarenal aorta is nonaneurysmal with moderate amount of mural thrombus in the juxtarenal segment causing approximately 50% narrowing. The patient is post aortobifemoral bypass and subsequent LEFT limb thrombectomy. No proximal or distal anastomotic stenosis or in graft stenosis is present. No pseudoaneurysm is present. No perigraft fluid collection is present. Celiac: No stenosis. SMA: No stenosis. Incidental note of replaced RIGHT hepatic artery from the superior mesenteric artery. Right renal artery: No stenosis. Left renal artery: No stenosis. SRINIVASAN: Proximally occluded with reconstitution via the arc of [place]iol[place]. Right: Common iliac artery: Occluded Internal iliac artery: Proximally occluded External iliac artery: Occluded Common femoral artery: Patent Left: Common iliac artery: Occluded Internal iliac artery: Proximally occluded External iliac artery: Occluded Common femoral artery: Patent NON-VASCULAR FINDINGS Lower chest: Normal. Liver: Normal. Bile ducts: Nondilated. Gallbladder: No calcified gallstones. Normal caliber wall. Pancreas: Normal attenuation without ductal dilatation. Spleen: Normal. Adrenals: Normal. Kidneys: RIGHT kidney is normal in size multiple perfused. 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 Urinary Bladder: Normal. Lymph Nodes: No enlarged lymph nodes. Bowel: Nondilated, no wall thickening. ?? Peritoneum and retroperitoneum: No hemorrhage. No pneumoperitoneum. No fluid collection or mesenteric inflammation. Abdominal wall: Signs of recent laparotomy without complication. Reproductive organs: Normal contours. Osseous structures: No suspicious findings. Procedure Note Deandre Machado MD - 09/06/2022 EXAMINATION: CT ANGIOGRAM ABDOMEN AND PELVIS W CONTRAST (GENERIC) CLINICAL HISTORY: s/p aortobifem and left ABF limb thrombectomy TECHNIQUE: Helical CT angiogram of the abdomen and pelvis following the intravenous administration of contrast. Administered 74.0 ml of CIZBNBLIX415.00 mg/ml. Maximum intensity projection (MIP) were reformatted. Multiplanarimages were reviewed and 3-D images were generated on an independentworkstation. COMPARISON: CT abdomen pelvis on 07/24/2022 FINDINGS: VASCULAR FINDINGS Abdominal aorta: Limited portions of the distal descending thoracic aortaare widely patent. The infrarenal aorta is nonaneurysmal with moderate amountof mural thrombus in the juxtarenal segment causing approximately 50%narrowing. The patient is post aortobifemoral bypass and subsequent LEFT limbthrombectomy. No proximal or distal anastomotic stenosis or in graft stenosis ispresent. No pseudoaneurysm is present. No perigraft fluid collection is present. Celiac: No stenosis. SMA: No stenosis. Incidental note of replaced RIGHT hepatic artery fromthe superior mesenteric artery. Right renal artery: No stenosis. Left renal artery: No stenosis. SRINIVASAN: Proximally occluded with reconstitution via the arc of [place]iolan. Right: Common iliac artery: Occluded Internal iliac artery: Proximally occluded External iliac artery: Occluded Common femoral artery: Patent Left: Common iliac artery: Occluded Internal iliac artery: Proximally occluded External iliac artery: Occluded Common femoral artery: Patent NON-VASCULAR FINDINGS Lower chest: Normal. Liver: Normal. Bile ducts: Nondilated. Gallbladder: No calcified gallstones. Normal caliber wall. Pancreas: Normal attenuation without ductal dilatation. Spleen: Normal. Adrenals: Normal. Kidneys: RIGHT kidney is normal in size multiple perfused. There is asegmental anterior inferior infarct of the LEFT kidney likely secondary to occlusionof accessory renal artery. Urinary Bladder: Normal. Lymph Nodes: No enlarged lymph nodes. Bowel: Nondilated, no wall thickening. Peritoneum and retroperitoneum: No hemorrhage. No pneumoperitoneum. Nofluid collection or mesenteric inflammation. Abdominal wall: Signs of recent laparotomy without complication. Reproductive organs: Normal contours. Osseous structures: No suspicious findings. IMPRESSION Patent aortofemoral bypass graft. Thank you for letting us participate in the care of this patient. If youare a health care provider and have any questions regarding this report,please contact the number below. For patients who have questions please contactthe health care analyst that requested your imaging first. Electronically signed by: Deandre Machado MD, [facility]([phone]), at 09/06/2022 3:49 PM Marco Dior MD IMG CT ORDERABLES documented in this encounter Visit Diagnoses Diagnosis Aortic disorder Unspecified disorders of arteries and arterioles documented in this encounter Administered Medications Inactive Administered Medications - up to 3 most recent administrations Medication Order MAR Action Action Date Dose Rate Site iohexoL (Omnipaque) (350 mg/mL) solution 0-200 mL 0-200 mL, Intravenous, ONCE PRN, 1 dose, Starting on Sun09/06/22 at 1335, Until Sun09/06/22 at 1336, Per Protocol, Warning Vesicant/Irritant Medication , Radiology Contrast, Routine Given 09/06/2022 1:36 PM EDT 74 mLs documented in this encounter Care Teams Pr Specialist Relationship Specialty Start Date End Date April Ramirez MD [address] [place] [address] PCP - General Family Medicine 07/24/22 documented as of this encounter
[2024-04-04] MEDS: Normal Saline - Diluent 50 ML VIAL IJ (20:20)
[2024-04-04] MEDS: Lactated Ringers 1,000 ML 2000 ML IV (20:20)
--- OUTSIDE RECORDS SUMMARY | 2024-04-04 20:21 | XMS_ITS | Encounter Summary ---
Author Organization [facility] [place] [address] Care Team Providers Care Firer [employer]el Locomotive Name Role Phone April Ramirez MD Primary Care Provider [phone] Reason for Referral * Diagnostic Test (Routine) - Closed Specialty Diagnoses / Procedures Referred By Lisbeth t Referred To Contact Radiology Diagnoses Aortic disorder Procedures CT Angiogram Abdomen & Pelvis w Contrast (Generic) Abiel Del Valle PA [facility] [place] [address] [facility] [place] [address] Referral ID Status Reason Start Date Expiration Date V isits Requested Visits Authorized [id number] Closed Specialty Service Requested 08/02/2022 02/02/2024 1 1 * Home Health Care (Routine) - Closed Specialty Diagnoses / Procedures Referred By Lisbeth cervantes Referred To Contact Diagnoses Aortic disorder Marco Dior MD [facility] [place] [address] [facility] & [address] [place] [address] Referral ID Status Reason Start Date Expiration Date V isits Requested Visits Authorized [id number] Closed Consult, Test & Treat 08/02/2022 01/29/2023 999 999 Reason for Visit * Reason Comments Circulatory Problem * Auth/Cert (Routine) Specialty Diagnoses / Procedures Referred By Lisbeth t Referred To Contact Diagnoses Aortic disorder Procedures EMERGENCY IPI Marco Dior MD [facility] [place] [address] [facility] Referral ID Status Reason Start Date Expiration Date Visits Re quested Visits Authorized [id number] 1 1 Encounter Details Date Type Department Care Team (Latest Contact Info) Description 07/24/2022 8:28 PM EDT - 08/02/2022 12:55 PM EDT Hospital Encounter Surgical Unit Level 4 [place] [id number] April Turner MD [facility] EM[place] [address] Marco Dior MD [facility] [place] [address] Aortic disorder (Primary Dx); Aortic occlusion Discharge Disposition: Home with VNA Social History Tobacco Use Types Packs/Day Years Used Date Smoking Tobacco: Never Passive Smoke Exposure: Never Smokeless Tobacco: Never Tobacco Cessation:Counseling Given: No Alcohol Use Standard Drinks/Week Comments Not Currently [...] Sign Reading Time Taken Comments Blood Pressure 107/73 08/02/2022 11:40 AM EDT Pulse 68 08/01/2022 11:26 AM EDT Temperature 36.5 ??C (97.7 ??F) 08/02/2022 11:40 AM E DT Respiratory Rate 16 08/02/2022 11:40 AM EDT Oxygen Saturation 95% 08/02/2022 11:40 AM EDT Inhaled Oxygen Concentration - - Weight 89.7 kg (197 lb 12 oz) 07/25/2022 3:30 PM EDT Height 182.9 cm (6') 07/24/2022 8:47 PM EDT Body Mass Index 26.82 07/24/2022 8:47 PM EDT documented in this encounter Discharge Summaries * Abiel Del Valle PA - 08/02/2022 11:11 AM EDT Images from the original note were not included. Inpatient - Discharge Summary Patient Name: Antelmo Marquez Patient Age: 56 y.o. Birthdate: 1965 Admit date: 07/24/2022 Discharge date and time: 08/02/2022 11:04 AM Attending Physician: Marco Dior MD Discharging Provider: AILYN Roberts Discharging Service: Vascular Surgery Operations/Major Procedures: 07/25/2022: Aortobifemoral bypass. 07/26/2022: Thrombectomy/revision of occluded left aortobifemoral bypass limb. Aortoiliac thromboembolectomy. Left SFA thromboembolectomy. Active Hospital Problems: Active Hospital Problems Diagnosis Aortic disorder Resolved Hospital Problems No resolved problems to display. Active Non Hospital Problems: There are no active non-hospital problems to display for this patient. History of Presentation: Antelmo Marquez is a 56 y.o. male with medical history significant for HTN, anxiety, 1PPD smoker who presents from an OSH with several days of lower extremity paresthesias, pain, worsening motor function and CT showing aortic occlusion. The patient was seen at an OSH earlier today reporting 24-28 hours of paresthesias in bilateral lower extremities along with significant RLE pain inhibiting movement. CT at the outside hospital identified an aortic occlusion, the patient was started on a heparin drip and transferred to [facility] for further evaluation by vascular surgery. PMH of hypertension and anxiety. Currently smokes roughly 1PPD for estimated 15 years. No known history of heart attack or stroke. No prior surgeries. Denies history of DVT/PE, bleeding or clotting disorders, is not on anticoagulation. Confirms he takes clonazepam and sertraline daily for anxiety, he also takes several medications for HTN but is unsure which ones. On presentation the pt is hemodynamically normal. Outside hospital imaging reviewed, the pt was admitted for further workup and treatment. See assessment and plan below. Hospital Course: On 07/25/22, patient underwent above procedure with findings of: Midline abdominal incision. Supraceliac clamp time 7 minutes, infrarenal for 20 minutes, leg clamp time 1 hr 20-23 min each leg. Mannitol administered. 14x7mm dacron graft to bilateral BAND MASTER extending onto profunda arteries. End to end proximal anastomosis, end to side distal anastomoses. No BAND MASTER endarterectomies performed. DP PT signals b/l at completion of procedure. Compartments soft at completion. Patient was admitted to ICU following the procedure for postoperative management. An arterial line was placed for invasive blood pressure monitoring. Loss of LLE signals prompted a CT scan on 07/26, which showed occluded entire left limb of the aortobifemoral bypass, for which patient was taken backto the OR for L ABF thrombectomy with findings of: Left limb of aortobifemoral bypass noted to be occluded. 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 Left aortoiliac and SFA thromboembolectomy performed with 4Fr and 5Fr sergo embolectomy catheters. Pulsatile inflow from left ABF limb and brisk backbleeding from SFA and profunda branches. Palpable left DP pulse at end of case. Patient was readmitted to ICU for postoperative management. Patient initially with NGT to LCWS. Patient recovered well in ICU, and on 07/27, patient downgraded to stepdown and started on 500u/hr heparin. Cardiovascular medicine was consulted and recommendations implemented. Patient did complain of severe pain, for which a BIBLIOGRAPHIC SERVICES SPECIALIST was added. On 07/29 patient was downgraded to floor status. BIBLIOGRAPHIC SERVICES SPECIALIST was d/c'd, bowel function returned, villegas d/c'd. Patient did require diuresis with Lasix. WBC 14.2 on 07/31 from 8.6 07/30 without fever or other symptoms. A UA was drawn, no acute intervention required. Patient wasadvanced to therapeutic heparin, WBC normalized. By 08/02, patient is hemodynamically stable, voiding appropriately, afebrile, ambulating OOB, and is prepared for d/c to home with home care. Patient will have follow up in 2 weeks for wound check and 4 weeks with ABIs and CTA abdomen pelvis. Important Studies and Lab Data: Labs: CBC Lab Results Component Value Date WBC 7.7 08/02/2022 Hemoglobin 10.9 (L) 08/02/2022 Hematocrit 32.9 (L) 08/02/2022 Platelets 253 08/02/2022 Lab Results Component Value Date Sodium 136 08/02/2022 Potassium 3.2 (L) 08/02/2022 Chloride 103 08/02/2022 CO2 22 08/02/2022 BUN 19 08/02/2022 Creatinine 0.97 08/02/2022 Glucose Lvl 120 08/02/2022 Pending Studies and Lab Data: none Discharge Condition: stable Discharge to: Home with Home Health Care [facility] [place] [place] [address] Future Appointments and Orders Future Orders Complete By Expires EMILIA, legs, multiple levels [VAS8 Custom] 09/01/2022 03/03/2023 Process Instructions: There is no in-house vascular medical lab assistant available on weeknights (5pm-8am), weekends, or holidays. IF THIS IS A REQUEST FOR AN EMERGENT STUDY DURING THOSE HOURS, please have the senior provider responsible for the patient page the Vascular Surgery Fellow/Senior Resident admissions gate attendant to discuss options. Scheduling Instructions: Questions: Indication for study/signs & symptoms: s/p aortobifem and left ABF limb thrombectomy Question to be answered: ?perfusion Preferred location?: [facility] CT Angiogram Abdomen & Pelvis w Contrast (Generic) [YLD548 Custom] 09/01/2022 03/03/2023 Process Instructions: Scheduling Instructions: Questions: Creatinine to be performed prior to the study?: Hydration prep required?: Contrast allergy prep required?: Where will study be performed?: [facility] Radiology Reason for exam and clinical history: s/p aortobifem and left ABF limb thrombectomy Clinical information / michelle questions for radiologist: Stat read required?: Does patient require sedation?: GA rationale: Date of injury if applicable: Requested Time: [facility] [employer] [EQ161 Custom] As directed Process Instructions: Scheduling Instructions: Comments: Antelmo Marquez [address] [facility] [address] Diagnosis: deconditioning with Unsteady gait Significant weakness, ataxia or gait abnormality Patient's: Hgt: Ht Readings from Last 1 Encounters: 07/24/22 : 182.9 cm (6') Wgt: Wt Readings from Last 1 Encounters: 07/25/22 : 89.7 kg (197 lb 12 oz) VENDOR: [facility] Ordering: Front wheel walker Deliver to 's hospital room #: 411a Questions: Device Needed: WALKER (E0143) Patient Height (cm): 182.9 cm (6') Patient Weight: 89.7 kg (197 lb 12 oz) Diagnosis: Generalized weakness Referral to Home Health [REF34 Custom] As directed Process Instructions: If no progress note charted, please enter Clinical details in comments. Scheduling Instructions: Comments: Please evaluate Antelmo Marquez for admission to Home Health. [address] [place] [phone] (home) Date of : 1965 Inpatient DOCUMENTATION FOR VNA SERVICES (INCLUDING THOSE PATIENTS WITH MEDICARE COVERAGE REQUIRINGHOME VNA SERVICES AND/OR HOSPICE SERVICES) PATIENT'S LOCATION: Antelmo Marquez [address] [place] [id number] Bulb Inspector's Name: self In discussion with the attending physician, it is certified that this patient is under their care and that they, or a Nurse Practitioner,Clinical Nurse specialist or Physician Garage Door Technician who is working directly with them, had a face to face encounter that meets the physician face to face encounter requirements with this patient on 08/02/2022 The encounter with the patient was in whole, or in part, for the following medical condition, whichis the primary reason for home health care services: postoperative care In discussion with the provider, it is certified that, based on their findings, the following services are medically necessary for home health services. To provide the following care/treatments with the clinical findings supporting the need for services as follows: HOME CARE ORDERS: RN ORDERS: Assess wound or incision, vital signs, cardiopulmonary status, nutrition, hydration, elimination, meds effectiveness and management; reinforce education re health issues PT ORDERS: Continue rehab for endurance, gait stability and strength with mobility and transfers. Home safety evaluation. Home exercise program if appropriate. OT: assess and continue rehab for managing ADL's. HOME HEALTH CARE AGENCY: [facility]. [address] [place] [address] Start of care: 24-48hrs after discharge FOR MEDICARE ONLY: In discussion with the attending physician, it is certified that the clinical findings support thatthis patient is homebound because absences from home require considerable and taxing effort due to:Patient is unable to leave home without assistance and ambulation is severely limited by pain, decreased strength and/or endurance. Please note that any additional orders needs or changes will need to be obtained from this patient's PCP: April Ramirez MD [address] / [place] [address] All VNA agencies which cover the area of patient's residence have been reviewed, either verbally roland writing, and patient/family have chosen the home health care agency noted Questions: Disciplines Requested: Physical Therapy Nursing Occupational Therapy Anticoagulation & Antiplatelet: Anticoagulation: Agent: Apixaban (Eliquis) 10mg PO BID Indication: Arterial Patency Intended Duration: 7 days (through 08/09/22) Agent: Apixaban (Eliquis) 5mg PO BID Indication: Arterial Patency Intended Duration: Indefinitely (starting 08/10/22 and lasting indefinitely) Antiplatelet: Agent: ASA 81mg PO daily Indication: PAD Intended Duration: indefinitely For questions regarding these medications, please contact: Vascular Surgery, PCP Discharge Medications: Your Medications New Medications Dose Details * apixaban 5 mg tablet Commonly known as: Eliquis Take 2 tablets by mouth 2 times daily for 7 days. 10 mg Quantity: 28 tablet Refills: 0 * apixaban 5 mg tablet Commonly known as: Eliquis Take 1 tablet by mouth 2 times daily. Start taking on: August 10, 2022 5 mg Quantity: 60 tablet Refills: 11 aspirin 81 mg chewable tablet Take 81 mg by mouth daily. 81 mg Quantity: 30 tablet Refills: 3 atenoloL 50 mg tablet Commonly known as: Tenormin Take 1 tablet by mouth daily. 50 mg Quantity: 90 tablet Refills: 3 clonazePAM 0.5 mg tablet Commonly known as: KlonoPIN Take 1 tablet by mouth 3 times daily as needed for Anxiety. 0.5 mg Quantity: 60 tablet Refills: 0 losartan 25 mg tablet Commonly known as: Cozaar Take 1 tablet by mouth daily. 25 mg Quantity: 90 tablet Refills: 3 oxyCODONE 5 mg tablet Commonly known as: Roxicodone Take 1 tablet by mouth every 6 hours as needed for Pain. 5 mg Quantity: 12 tablet Refills: 0 pregabalin 100 mg capsule Commonly known as: Lyrica Take 1 capsule by mouth 3 times daily. 100 mg Quantity: 90 tablet Refills: 0 sertraline 100 mg tablet Commonly known as: Zoloft Take 2 tablets by mouth daily. 200 mg Quantity: 90 tablet Refills: 3 * This list has 2 medication(s) that are the same as other medications prescribed for you. Read thedirections carefully, and ask your doctor or other care provider to review them with you. Updated Allergies/ADRs: No Known Allergies Follow-up Recommendations for Providers: 2 week wound check 4 weeks with ABIs and CTA abdomen/pelvis Instructions Given to Patient at Discharge: Patient Instructions You were admitted to [facility] after having your aortic aneurysm repaired with an endograft. This all went very well and your postoperative course was uncomplicated. Your surgeon will want you to be seen in approximately one month with a CT scan and ABIs. You will also have an appointment in two weeks for a wound check. This will be scheduled and sent to you in the mail. Please call our office at the number below if you don't receive this appointment in a week as your follow up is very important. Call your doctor if: Any abdominal or back pain, any issue of redness, swelling or separation of your incision or puncture sites in your groin, any nausea or vomiting or any fever. Activity level: Up as tolerated, but take it easy for a week or so. Diet: Resume your previous regular diet. Driving: Ok in a week or so if driving before and you feel perfect. NONE if requiring any pain medication. Shower/Bath: Showering is fine. Wound Care: Wash in the shower with soap and water daily, pat dry. Place dry gauze to groin incisions to keep clean and dry daily. Keep abdominal incision clean and dry, no need for a dressing. For any problems or questions please call [phone] For issues on weeknights after 5pm and weekends please call [phone] and ask for the Vascular Fellow admissions gate attendant. AILYN Roberts 08/02/2022 11:52 AM documented in this encounter Discharge Instructions * Patient Instructions* Abiel Del Valle PA - 08/02/2022 10:43 AM EDT You were admitted to [facility] after having your aortic aneurysm repaired with an endograft. This all went very well and your postoperative course was uncomplicated. Your surgeon will want you to be seen in approximately one month with a CT scan and ABIs. You will also have an appointment in two weeks for a wound check. This will be scheduled and sent to you in the mail. Please call our office at the number below if you don't receive this appointment in a week as your follow up is very important. Call your doctor if: Any abdominal or back pain, any issue of redness, swelling or separation of your incision or puncture sites in your groin, any nausea or vomiting or any fever. Activity level: Up as tolerated, but take it easy for a week or so. Diet: Resume your previous regular diet. Driving: Ok in a week or so if driving before and you feel perfect. NONE if requiring any pain medication. Shower/Bath: Showering is fine. Wound Care: Wash in the shower with soap and water daily, pat dry. Place dry gauze to groin incisions to keep clean and dry daily. Keep abdominal incision clean and dry, no need for a dressing. For any problems or questions please call [phone] For issues on weeknights after 5pm and weekends please call [phone] and ask for the Vascular Fellow admissions gate attendant. documented in this encounter Medications at Time of Discharge [...] 3 times daily as needed for Anxiety. apixaban (Eliquis) 5 mg tablet Take 2 tablets by mouth 2 times daily for 7 days. 28 tablet 08/02/2022 08/09/2022 documented as of this encounter Progress Notes * Kim Huddleston PA - 08/01/2022 10:25 AM EDT Vascular Surgery Progress Note Antelmo Marquez is a 56 y.o. male with PMH of HTN, anxiety and current 1 PPD smoker transferred from OSH with several days of BLE paresthesias, pain, and worsening motor function with CTA revealing an aortic occlusion. Active Hospital Problems Diagnosis Aortic disorder Resolved Hospital Problems No resolved problems to display. There are no active non-hospital problems to display for this patient. Scheduled Medications: potassium chloride 10 mEq Intravenous Q1H aspirin 81 mg Oral Daily losartan 25 mg Oral Daily sertraline 200 mg Oral Daily atenoloL 50 mg Oral Daily clonazePAM 1 mg Oral TID pregabalin 100 mg Oral TID acetaminophen 1,000 mg Oral Q6H atorvastatin 40 mg Oral QPM bisacodyL 10 mg Rectal Daily sodium chloride 0.9 % (flush) 5 mL Intravenous BID senna-docusate 2 tablet Oral BID Operations This Hospitalization: 07/25/2022: Aortobifemoral bypass. 07/26/2022: Thrombectomy/revision of occluded left aortobifemoral bypass limb. Aortoiliac thromboembolectomy. Left SFA thromboembolectomy. Subjective/Interval Hx: - No acute events overnight, remains afebrile and HDS. - WBC 10.0 from 14.2 yesterday. UA negative yesterday. - K 2.8 this morning. - Pain is controlled, patient is eager to go home. Objective: Temp: [36.6 ??C (97.9 ??F)-37 ??C (98.6 ??F)] Heart Rate: -- Resp: [16-18] BP: (97-176)/(68-106) SpO2: [94 %-98 %] Heart Rate from SpO2: [69 bpm-82 bpm] BMI: Weight: 89.7 kg (197 lb 12 oz) (07/25/22 1530) BMI (Calculated): 27.8 BMI Classification: OverWeight Intake/Output Summary (Last 24 hours) at 08/01/2022 1025 Last data filed at 07/31/2022 1600 Gross per 24 hour Intake 120 ml Output -- Net 120 ml PHYSICAL EXAM: GEN: Alert and cooperative. In NAD. HEENT: Normocephalic and atraumatic. Neck: Supple, symmetric, trachea midline. CV: Regular rate. Pulm: No evidence of increased work of breathing. Abd: Midline abdominal incision site c/d/I - no surrounding erythema or drainage. Soft, non-distended, non-tender to palpation. Neuro: No focal deficits, gross sensory or motor abnormalities. Extremities: Bilateral groin incision sites c/d/I - no surrounding erythema or drainage. BLE warm and pink. Palpable DP pulses bilaterally. Labs: Recent Labs 08/01/22 0244 07/31/22 0550 07/30/22 0405 WBC 10.0* 14.2* 8.6 HGB 12.3* 12.7* 12.1* HCT 36.9* 38.8* 36.9* PLATELET 255 284 179 Recent Labs 08/01/22 0244 07/31/22 0550 07/30/22 0405 07/29/22 1340 NA 137 133* 140 139 K 2.8* 3.2* 3.9 4.0 CL 100 97* 101 99 CO2 22 20* 20* 19* BUN 29* 26* 22* 18 CREATININE 1.05 0.95 0.98 1.02 PHOS 3.5 4.0 4.7* -- CALCIUM 8.7 9.2 9.2 8.8 Microbiology: None New Studies: CXR 07/25/22: IMPRESSION 1. Right IJ venous catheter with distal tip overlying the proximal right atrium. Consider retraction by approximately 3.5 cm. No visualized pneumothorax. 2. Mild pulmonary vascular congestion. CTA Runoff 07/26/22: IMPRESSION * Occluded entire LEFT limb of the aorto-bifemoral bypass from just beyond the level of the bifurcation. * Oligemia of distal LEFT foot arteries. * Soft tissue inflammatory changes about the aorta at the level of the graft, likely postsurgical sequela; no active extravasation seen. * Moderately large portion of devascularization of the LEFT kidney anteriorly. * Small amount of perisplenic hemorrhage/hemoperitoneum. * Small to moderate volume pneumoperitoneum, likely postsurgical. * Partially imaged trace pleural effusions and moderate dependent atelectasis/consolidations. * Urinary bladder wall thickening; correlate for any concern of cystitis. Assessment & Plan: Antelmo Marquez is a 56 y.o. male admitted with an aortic occlusion s/p aortobifemoral bypass on 07/25/22 c/b occluded L ABF limb s/p thrombectomy/revision of occluded left aortobifemoral bypass limb, aortoiliac thromboembolectomy, L SFA thromboembolectomy on 07/26/22. Patient had acute blood loss anemia post-operatively, Hb stable now. He had acute pulmonary insufficiency post-operatively due to volume overload, improving with Lasix diuresis. Cardiology consulted regarding etiology and anticoagulation recommendations for aortic occlusion with family hx of APLA. No hypercoagulability work-up indicated at this time, recommend starting Eliquis with loading dose 10 mg BID x 7 days before transitioning to Eliquis 5 mg BID dosing. Leukocytosis is down trending. Patient is hypokalemic this morning, repleted and will recheck noon BMP. Plan for DC tomorrow with continued clinical improvement: - Consult to cardiology regarding etiology and anticoagulation recommendations for aortic occlusion, appreciate input. - Daily labs. - OOB, PT/OT. - DOM tylenol, Lyrica, PRN oxycodone and IV dilaudid for breakthrough pain. - Regular diet. - ASA, statin. - Heparin gtt. Transition to Eliquis with loading dose 10 mg BID x 7 days before transitioning to Eliquis 5 mg BID dosing when able. Dispo: Floor status, full code. AILYN Jin 08/01/2022 Pager: [phone] * Vincent Parham RN - 08/01/2022 6:17 AM EDT Remains A&Ox4. Denies pain. Heparin gtt continued at 1050 units/hr, next recheck for ufh at 0930, oncoming nurse to be made aware. Potassium critically low at 2.8, replacements being given. Pulses palpable in lower extremities, neuros intact. Appears in NAD at this time. * Mirlande Irby PT - 07/31/2022 1:23 PM EDT Physical Therapy Note Treatment Number PT: 2 Patient profile: Antelmo Marquez is a 56 y.o. male with medical history significant for HTN, anxiety,1PPD smoker who presents from an OSH with several days of lower extremity paresthesias, pain, worsening motor function and CT showing aortic occlusion. The patient was seen at an OSH earlier today reporting 24-28 hours of paresthesias in bilateral lower extremities along with significant RLE pain inhibiting movement. CT at the outside hospital identified an aortic occlusion, the patient was started on a heparin drip and transferred to [facility] for further evaluation by vascular surgery. He is now s/p ABF performed on 07/25, complicated by postoperative LLE ischemia necessitating OR takeback, open embolectomy of R BAND MASTER, redo patch angioplasty on 07/26. He is now recovering well and has palpable pulses in both feet and normal motor/sensory function. Per MD note: Operations This Hospitalization: 07/25 - ABF 07/26 - takeback, open embolectomy of R BAND MASTER, redo patch angioplasty Subjective: - NAEON, VSS - Pain well controlled - No new complaints on am rounds Social History: Home setup: Pt lives alone in a two level apartment with 0 JASSI. Pt's bedroom is upstairs however hecan stay on the first floor. The bathroom has a tub shower. Pt states that his oldest son could assist him if needed Baseline Mobility/Prior level of function: Independent with mobility and ADLs at baseline, but had experienced several recent falls 2/2 LE weakness and impaired sensation. 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 to utilize rolling walker and CGAx2 for transfers OOB with nursing. Please encourage up to chair for meal times as able. Subjective: I would really like to go home. I have a lot of people that can help me Objective: Patient agreeable to physical therapy treatment session today. Pt met supine in bed at beginning of tx session. Pt seen for PT/OT co-tx today. Patient demonstrated the following: Pain: Did not c/o any pain Vital Signs: HR: 71 bpm SpO2: 93% RA BP: 122/77 mmHg supine > 109/80 mmHg sitting EOB > 95/68 mmHg standing >116/82 mmHg seatedEOB post gait, reported some lightheadedness initially with positional change, however reports thisresolved throughout tx session Cognition/Vision: Able to follow commands 100% and answer questions appropriately Bed Mobility: Supine to Sit: supervised with HOB elevated, cues for log roll to protect incisions Sit to Supine: supervised with HOB elevated, cues for log roll to protect incisions, pt reports he has recliner chair he can use at home for sleeping if needed Transfers: Sit to Stand: supervised using FWW Stand to Sit: supervised using FWW Bed to Chair: N/A using NA Gait: Distance: 150 ft Device used: FWW Level of assist: supervised Gait mechanics: steady gait mechanics, decreased gait speed, mildly forward flexed posture Stairs: DNT, pt reports he will not have to do any stairs at home, reports 0 JASSI and can stay on the first floor Balance: Sitting Static: Good, supervision Sitting Dynamic: Good, supervision donning socks sitting EOB Standing Static: Good, supervision with FWW Standing Dynamic / Gait: Good, supervision with FWW Education: Provided patient education regarding role of therapy, safety with functional mobility, and discharge planning. Educated pt on hypotension and importance of making sure he's not feeling s/sof hypotension prior to ambulating/standing. Pt left supine in bed, with all needs met, and with call pichardo in reach following visit. RN updated on mobility recommendations and progress with PT today. Assessment: Antelmo Marquez was seen today for physical therapy treatment session for continuation ofPOC. Pt tolerated today's physical therapy session well with no adverse symptoms besides mild lightheadedness initially that resolved throughout tx session. Pt demonstrated ability to ambulate aroundunit safely with FWW and supervision with no adverse symptoms. Pt will benefit from ongoing physical therapy while in hospital stetting to achieve therapeutic goals and to optimize safety with functional mobility. Recommend pt discharge home with / supervision and home health services when medically ready for hospital discharge. Pt reports extensive family support that can assist him and be pre sent when he discharges. Discharge Recommendations: Based on the current findings, Anticipated Discharge Disposition (PT): home with home health, home with supervision when medically ready for hospital discharge. Consult Recommendations: No other consults recommended at this time. Equipment needs: Anticipated Equipment Needs at Discharge (PT): walker, front wheeled Goals: To be achieved by 08/11/22: Pt. to demonstrate knowledge of safety limitations and precautions and will appropriately request assistance for functional activities and to mobilize. Pt. to demonstrate understanding of appropriate exercises. Pt. to perform bed mobility independently. Pt. to perform sit to stand and stand pivot transfers with supervision using a front wheeled walker. MET Pt. to ambulate 150 feet with supervision using a front wheeled walker. MET Pt. to ambulate up/down 2-4 step/stairs using two rails with supervision. Pt will tolerate progression towards upright with stable vital signs. Plan: Therapy Frequency (PT): 2-4 times/wk for therapy interventions as outlined in initial evaluation. Patient agrees with plan as stated. Time IN / OUT: 13:23-13:51 Total Minutes, Physical Therapy: 28 Billing Code: TA x2 Mirlande Irby PT, DPT Pager: [phone] Physical Therapy Inpatient Rehabilitation Department * Allyn Rosales, OT - 07/31/2022 1:22 PM EDT Occupational Therapy Treatment Note Treatment Number OT: 2 Patient profile: Per MD note, Antelmo Marquez is a 56 y.o. male admitted on 07/24/2022 with medical history significant for HTN, anxiety, 1PPD smoker who presents from an OSH with several days of lower extremity paresthesias, pain, worsening motor function and CT showing aortic occlusion. The patient was seen at an OSH earlier today reporting 24-28 hours of paresthesias in bilateral lower extremities along with significant RLE pain inhibiting movement. CT at the outside hospital identified an aortic occlusion, the patient was started on a heparin drip and transferred to [facility] for further evaluation by vascular surgery. PMH of hypertension and anxiety. Currently smokes roughly 1PPD for estimated 15 years. No known history of heart attack or stroke. No prior surgeries. Denies history of DVT/PE, bleeding or clotting disorders, is not on anticoagulation. Confirms he takes clonazepam and sertraline daily for anxiety, he also takes several medications for HTN but is unsure which ones. On presentation the pt is hemodynamically normal. Outside hospital imaging reviewed, the pt was admitted for further workup and treatment. See assessment and plan below. No past medical history on file. Past Surgical History: Procedure Laterality Date PRO BYPASS GRAFT OTHR, AORTOBIFEMORAL N/A 07/25/2022 @BYPASS GRAFT, AORTOBIFEMORAL W\ SYNTHETIC CONDUIT (WRVU 32.98) performed by Rut Aguilera MD at [facility] MAIN OR PRO EMBLC/THRMBC FEMORAL POPLITEAL AORTO-ILIAC ARTERY Left 07/26/2022 EMBOLECTOMY OR THROMBECTOMY, FEMOROPOPLITEAL, AORTOILIAC ARTERY BY LEG INCISION- LADAN (WRVU 19.48) performed by Marco Dior MD at [facility] MAIN OR PRO REMOVAL OF CLOT IN GRAFT Left 07/26/2022 THROMBECTOMY ARTERIAL,VENOUS GRAFT (NOT FOR HEMODIALYSIS GRAFT) WITH REVISION, LOWER EXTREMITY (WRVU 17.82) performed by Marco Dior MD at [facility] MAIN OR Social History: Home setup: Pt lives alone in a 2 level apartment with no JASSI. The bedroom is on the second floor. Pt did report that he can stay on the first floor if needed, The bathroom has a tub shower. He reported that his oldest son can assisted if needed. Functional Status: Pt was independent prior to admission. DME: cane Falls: pt reported several falls recently due to LB weakness Precautions/Special Considerations: full code, falls, bleeding precautions, regular diet, b/l groinwound vacs, PIV, AAT Interval History: (per Vascular Surgery note on 07/31/22) - NAEON, VSS - Pain well controlled - No new complaints on am rounds S: I have all kinds of people that can come and stay with me if I need them too. O: Patient seen for skilled OT treatment and demonstrated the following: Self-care: Pt received supine in bed, agreeable to participating in therapy session with encouragement Supervision assist to don socks sitting unsupported EOB Pt declined using the bathroom during session Functional Mobility: Supine to sit: Supervision assist, pt cued for log roll technique to minimize pain Pt able to sit EOB unsupported for ~5 minutes, did report some dizziness initially but quickly subsided, VSS Sit to stand: Supervision assist with FWW Supervision assist with FWW to ambulate ~150 feet with no rest breaks required, very minimal lightheadedness/dizziness reported with ambulation Stand to sit: Supervision assist Sit to supine: Supervision assist with HOB slightly elevated Cognition: Behavior / Mood: alert and cooperative Alert and oriented to: person, place, date, month, year, and situation Follows commands: 2 step and 100% of the time Attention: WFL Safety awareness: WFL Vision:WFL Endurance:fair-pt able to ambulate around unit with no rest breaks required Vitals: HR: 77 at rest, 80s with activity SpO2: 98% on RA BP: 122/77 (73) supine, 109/80 (73) sitting, 95/68 standing, 116/82 (79) post activity Strength/ROM: deconditioned but WFL Pain: pt reported minimal pain in groin with activity Education: Pt/family/caregiver education ongoing regarding: Role of occupational therapy/rehabilitation, Transfers, Assistive device/technique, ADL, Positioning, Safety, Functional Mobility, Activitypacing/Energy conservation, Home Management, Balance, Recommendations, and Discharge planning. Staff Communication: Patient status, treatment, and mobility recommendations discussed with nursing/other staff. ASSESSMENT: Pt seen this afternoon for OT treatment session in conjunction with PT to progress POC.Antelmo has demonstrated significant improvement in activity tolerance and functional mobility since evaluation. He was able to transition to sitting EOB where he donned his socks without assistance.He was then able to ambulate in the conde with FWW with no LOB and VSS. Pt has extensive support syst em who can assist him as needed and provide 24/7 supervision. Recommend discharge home with 24/7 supervision and home health services when medically ready. Pt will benefit from ongoing therapeutic interventions to achieve pt's and therapy goals. Anticipated Discharge Disposition (OT): home with supervision, home with home health Equipment Recommendations: Equipment Needs Upon Discharge (OT): walker, front wheeled EPM Level 5: Ambulate, Participate in self care Other Recommendations: Transfer to recliner chair as appropriate with Min A x 2 using FWW, ambulate as tolerated Encourage participation in ADL's by providing set up A on tray table and physical assist only as needed Promote normalcy by encouraging participation in common daily tasks & leisure activities by providing set up assist Occupational Therapy Goals: To be achieved by 08/10/22. Patient will complete commode/toilet transfer with supervision assist and LRD. Pt will complete 2 grooming tasks sitting/standing at the sink with supervision assist and min cues. Pt will complete LB dressing with supervision assist using AE as needed. Pt will complete UB and LB bathing in sitting with supervision assist and min cues. Pt will complete functional transfers and mobility with supervision assist for participation in ADLs using self-pacing as needed and LRAD. Therapy Frequency (OT): 2-3 times/wk Total Minutes, Occupational Therapy: 28 (13:22-13:50 SC/HMx2) Pager: [phone] Allyn Rosales OTR/L Occupational Therapy Rehabilitation Department * Bran Mcfarland - 07/31/2022 1:16 PM EDT [facility] Encounter Note Patient Name: Antelmo Marquez : [id number] MR#: [id number] Admit Date: 07/24/2022 8:28 PM Hospital Day 7 days Narrative: Visited to introduce and assess acceptance of [facility] services. Pt was not available as medical staff was there and I will visit an other time. Assessment: Intervention and Outcome: Follow-up: Time in Direct Care: Bran Mcfarland 07/31/2022 * Abiel Del Valle PA - 07/31/2022 1:05 PM EDT Vascular Surgery Progress Note Antelmo Marquez is a 56 y.o. male with medical history significant for HTN, anxiety, 1PPD smoker who presents from an OSH with several days of lower extremity paresthesias, pain, worsening motor function and CT showing aortic occlusion. The patient was seen at an OSH earlier today reporting 24-28 hours of paresthesias in bilateral lower extremities along with significant RLE pain inhibiting movement. CT at the outside hospital identified an aortic occlusion, the patient was started on a heparin drip and transferred to [facility] for further evaluation by vascular surgery. PMH of hypertension and anxiety. Currently smokes roughly 1PPD for estimated 15 years. No known history of heart attack or stroke. No prior surgeries. Denies history of DVT/PE, bleeding or clotting disorders, is not on anticoagulation. Confirms he takes clonazepam and sertraline daily for anxiety, he also takes several medications for HTN but is unsure which ones. On presentation the pt is hemodynamically normal. Outside hospital imaging reviewed, the pt was admitted for further workup and treatment. See assessment and plan below. Active Hospital Problems Diagnosis Aortic disorder Resolved Hospital Problems No resolved problems to display. There are no active non-hospital problems to display for this patient. Scheduled Medications: aspirin 81 mg Oral Daily losartan 25 mg Oral Daily sertraline 200 mg Oral Daily atenoloL 50 mg Oral Daily clonazePAM 1 mg Oral TID pregabalin 100 mg Oral TID acetaminophen 1,000 mg Oral Q6H atorvastatin 40 mg Oral QPM bisacodyL 10 mg Rectal Daily sodium chloride 0.9 % (flush) 5 mL Intravenous BID senna-docusate 2 tablet Oral BID Operations This Hospitalization: 07/25 - ABF 07/26 - takeback, open embolectomy of R BAND MASTER, redo patch angioplasty Subjective: - NAEON, VSS - Pain well controlled - No new complaints on am rounds Objective: Temp: [36.2 ??C (97.2 ??F)-36.7 ??C (98.1 ??F)] Heart Rate: [64] Resp: [16-18] BP: (97-155)/(68-102) SpO2: [93 %-98 %] Heart Rate from SpO2: [64 bpm-82 bpm] BMI: Weight: 89.7 kg (197 lb 12 oz) (07/25/22 1530) BMI (Calculated): 27.8 BMI Classification: OverWeight Intake/Output Summary (Last 24 hours) at 07/31/2022 1305 Last data filed at 07/31/2022 0800 Gross per 24 hour Intake 539 ml Output 400 ml Net 139 ml PHYSICAL EXAM: General: Alert, no acute distress Head: Atraumatic, non cyanotic Cardiac: Regular rate on monitor Pulmonary: Normal respiratory effort Abdominal: Soft, minimally distended. Midline helga in place, incision c/d/i without erythema. B/l groin prevenas in place and holding suction Neuro: Grossly intact, follows commands Extremities: Palpable DP bilaterally Labs: Recent Labs 07/31/22 0550 07/30/22 0405 07/29/22 0132 WBC 14.2* 8.6 9.1 HGB 12.7* 12.1* 11.5* HCT 38.8* 36.9* 34.4* PLATELET 284 179 122* Recent Labs 07/31/22 0550 07/30/22 0405 07/29/22 1340 07/29/22 0132 NA 133* 140 139 139 K 3.2* 3.9 4.0 3.9 CL 97* 101 99 100 CO2 20* 20* 19* 23 BUN 26* 22* 18 18 CREATININE 0.95 0.98 1.02 1.00 PHOS 4.0 4.7* -- 3.8 CALCIUM 9.2 9.2 8.8 8.7 Microbiology: None New Studies: Results for orders placed or performed during the hospital encounter of 07/24/22 XR Chest One View (Exam End: 07/25/2022 3:53 PM) Impression 1. Right IJ venous catheter with distal tip overlying the proximal right atrium. Consider retraction by approximately 3.5 cm. No visualized pneumothorax. 2. Mild pulmonary vascular congestion. Thank you for letting us participate in the care of this patient. If you are a health care provider and have any questions regarding this report, please contact the number below. For patients who have questions please contact the health daycare teacher that requested your imaging first. Angiogram Aortic Lower Extremity Runoff (Exam End: 07/26/2022 7:36 AM) Impression * Occluded entire LEFT limb of the aorto-bifemoral bypass from just beyond the level of the bifurcation. * Oligemia of distal LEFT foot arteries. * Soft tissue inflammatory changes about the aorta at the level of the graft, likely postsurgical sequela; no active extravasation seen. * Moderately large portion of devascularization of the LEFT kidney anteriorly. * Small amount of perisplenic hemorrhage/hemoperitoneum. * Small to moderate volume pneumoperitoneum, likely postsurgical. * Partially imaged trace pleural effusions and moderate dependent atelectasis/consolidations. * Urinary bladder wall thickening; correlate for any concern of cystitis. Thank you for letting us participate in the care of this patient. If you are a health care provider and have any questions regarding this report, please contact the number below. For patients who have questions please contact the health daycare teacher that requested your imaging first. Electronically signed by: Durga Lundberg MD, [facility] ([phone]), at 07/26/2022 7:58 AM Assessment & Plan: Antelmo Marquez is a 56 y.o. male with medical history significant for HTN, anxiety, 1PPD smoker who presented from an OSH with several days of lower extremity paresthesias, pain, worsening motor function and CT showing aortic occlusion. He is now s/p ABF performed on 07/25, complicated by postoperative LLE ischemia necessitating OR takeback, open embolectomy of R BAND MASTER, redo patch angioplasty on 07/26. He is now recovering well and has palpable pulses in both feet and normal motor/sensory function. Transferred out of the SICU on 07/27. Cardiology was consulted given reported family hx of APLA which appears to be negative. ROBF, NGT removed, will restart home meds, change statin to high intensity. Diuresed 07/30, goal 2L output, continue to normalize. WBC 14.2 6.5 from 8.6 /. Will get UA. Afebrile. PLAN: - Get UA, WBC 14.2 /5 from 8.6 /4. - Scheduled APAP Pregbalin, PRN IV hydromorphone, Oxycodone, - Heparin advanced to therapeutic - Diet advanced to regular - restart home meds Losartan, Atenolol, Klonipin, Pregbalin, Sertaline - Atorvastatin 40mg daily, d/c home Zocor - OOB, PT/OT to re-eval 07/31 for dispo recs - smoking cessation consult - Cardiology consult as above, appreciate recs.Will start Statin when NG is out, will consider Eliquis when able. No hypercoagulability workup needed. Dispo: floor status, Attempt Cardiopulmonary Resuscitation - Inpatient AILYN Roberts 07/31/2022 Pager: [phone] * Lyly Baltazar APRN - 07/30/2022 9:10 AM EDT Vascular Surgery Progress Note Antelmo Marquez is a 56 y.o. male with medical history significant for HTN, anxiety, 1PPD smoker who presents from an OSH with several days of lower extremity paresthesias, pain, worsening motor function and CT showing aortic occlusion. The patient was seen at an OSH earlier today reporting 24-28 hours of paresthesias in bilateral lower extremities along with significant RLE pain inhibiting movement. CT at the outside hospital identified an aortic occlusion, the patient was started on a heparin drip and transferred to [facility] for further evaluation by vascular surgery. PMH of hypertension and anxiety. Currently smokes roughly 1PPD for estimated 15 years. No known history of heart attack or stroke. No prior surgeries. Denies history of DVT/PE, bleeding or clotting disorders, is not on anticoagulation. Confirms he takes clonazepam and sertraline daily for anxiety, he also takes several medications for HTN but is unsure which ones. On presentation the pt is hemodynamically normal. Outside hospital imaging reviewed, the pt was admitted for further workup and treatment. See assessment and plan below. Active Hospital Problems Diagnosis ??? Aortic disorder Resolved Hospital Problems No resolved problems to display. There are no active non-hospital problems to display for this patient. Scheduled Medications: ??? furosemide 20 mg Intravenous Once ??? aspirin 81 mg Oral Daily ??? losartan 25 mg Oral Daily ??? [START ON 07/31/2022] sertraline 200 mg Oral Daily ??? atenoloL 50 mg Oral Daily ??? clonazePAM 1 mg Oral TID ??? pregabalin 100 mg Oral TID ??? bisacodyL 10 mg Rectal Daily ??? sodium chloride 0.9 % (flush) 5 mL Intravenous BID ??? senna-docusate 2 tablet Oral BID Operations This Hospitalization: 07/25 - ABF 07/26 - takeback, open embolectomy of R BAND MASTER, redo patch angioplasty Subjective: BM x2, passing flatus NAEON Pain well controlled Diuresed 20mg Lasix yesterday 2L urine output Objective: Temp: [36.4 ??C (97.5 ??F)-37.7 ??C (99.9 ??F)] Heart Rate: [78-87] Resp: [16-25] BP: (133-192)/(90-130) SpO2: [94 %-99 %] Heart Rate from SpO2: [66 bpm-96 bpm] BMI: Weight: 89.7 kg (197 lb 12 oz) (07/25/22 1530) BMI (Calculated): 27.8 BMI Classification: OverWeight Intake/Output Summary (Last 24 hours) at 07/30/2022 0910 Last data filed at 07/30/2022 0753 Gross per 24 hour Intake 888.3 ml Output 4175 ml Net -3286.7 ml PHYSICAL EXAM: General: Alert, no acute distress Head: Atraumatic, non cyanotic Cardiac: Regular rate on monitor Pulmonary: Normal respiratory effort Abdominal: Soft, minimally distended. Midline helga in place, incision c/d/i without erythema. B/l groin provenas in place and holding suction Neuro: Grossly intact, follows commands Extremities: Palpable DP bilaterally Labs: Recent Labs 07/30/22 0405 07/29/22 0132 07/28/22 0443 07/27/22 1800 WBC 8.6 9.1 8.9 9.2 HGB 12.1* 11.5* 10.3* 10.4* HCT 36.9* 34.4* 30.7* 30.8* PLATELET 179 122* 112* 104* Recent Labs 07/30/22 0405 07/29/22 1340 07/29/22 0132 07/28/22 04407/27/22 1800 NA 140 139 139 139 138 K 3.9 4.0 3.9 3.7 3.8 CL 101 99 100 104 104 CO2 20* 19* 23 25 24 BUN 22* 18 18 17 15 CREATININE 0.98 1.02 1.00 1.03 1.08 PHOS 4.7* -- 3.8 -- 3.4 CALCIUM 9.2 8.8 8.7 8.4* 8.5 Microbiology: None New Studies: Results for orders placed or performed during the hospital encounter of 07/24/22 XR Chest One View (Exam End: 07/25/2022 3:53 PM) Impression 1. Right IJ venous catheter with distal tip overlying the proximal right atrium. Consider retraction by approximately 3.5 cm. No visualized pneumothorax. 2. Mild pulmonary vascular congestion. Thank you for letting us participate in the care of this patient. If you are a health care provider and have any questions regarding this report, please contact the number below. For patients who have questions please contact the health daycare teacher that requested your imaging first. Angiogram Aortic Lower Extremity Runoff (Exam End: 07/26/2022 7:36 AM) Impression * Occluded entire LEFT limb of the aorto-bifemoral bypass from just beyond the level of the bifurcation. * Oligemia of distal LEFT foot arteries. * Soft tissue inflammatory changes about the aorta at the level of the graft, likely postsurgical sequela; no active extravasation seen. * Moderately large portion of devascularization of the LEFT kidney anteriorly. * Small amount of perisplenic hemorrhage/hemoperitoneum. * Small to moderate volume pneumoperitoneum, likely postsurgical. * Partially imaged trace pleural effusions and moderate dependent atelectasis/consolidations. * Urinary bladder wall thickening; correlate for any concern of cystitis. Thank you for letting us participate in the care of this patient. If you are a health care provider and have any questions regarding this report, please contact the number below. For patients who have questions please contact the health daycare teacher that requested your imaging first. Electronically signed by: Durga Lundberg MD, [facility] ([phone]), at 07/26/2022 7:58 AM Assessment & Plan: Antelmo Marquez is a 56 y.o. male with medical history significant for HTN, anxiety, 1PPD smoker who presented from an OSH with several days of lower extremity paresthesias, pain, worsening motor function and CT showing aortic occlusion. He is now s/p ABF performed on 07/25, complicated by postoperative LLE ischemia necessitating OR takeback, open embolectomy of R BAND MASTER, redo patch angioplasty on 07/26. He is now recovering well and has palpable pulses in both feet and normal motor/sensory function. Transferred out of the SICU on 07/27. Cardiology was consulted given reported family hx of APLA which appears to be negative. ROBF, NGT removed, will restart home meds, change statin to high intensity. Diurese today, goal 2L output, continue to normalize. PLAN: - d/c BIBLIOGRAPHIC SERVICES SPECIALIST - Scheduled APAP Pregbalin, PRN IV hydromorphone, Oxycodone, - Lasix 20mg IV today - Heparin 500u/hr - Clear Liquids - restart home meds Losartan, Atenolol, Klonipin, Pregbalin, Sertaline - Atorvastatin 40mg daily, d/c home Zocor - OOB, PT/OT - smoking cessation consult - Cardiology consult as above, appreciate recs.Will start Statin when NG is out, will consider Eliquis when able. No hypercoagulability workup needed Dispo: floor status, Attempt Cardiopulmonary Resuscitation - Inpatient Lyly Baltazar APRN 07/30/2022 Pager: [phone] * Alaina Avalos MD - 07/29/2022 8:00 AM EDT Vascular Surgery Progress Note Antelmo Marquez is a 56 y.o. male with medical history significant for HTN, anxiety, 1PPD smoker who presents from an OSH with several days of lower extremity paresthesias, pain, worsening motor function and CT showing aortic occlusion. The patient was seen at an OSH earlier today reporting 24-28 hours of paresthesias in bilateral lower extremities along with significant RLE pain inhibiting movement. CT at the outside hospital identified an aortic occlusion, the patient was started on a heparin drip and transferred to [facility] for further evaluation by vascular surgery. PMH of hypertension and anxiety. Currently smokes roughly 1PPD for estimated 15 years. No known history of heart attack or stroke. No prior surgeries. Denies history of DVT/PE, bleeding or clotting disorders, is not on anticoagulation. Confirms he takes clonazepam and sertraline daily for anxiety, he also takes several medications for HTN but is unsure which ones. On presentation the pt is hemodynamically normal. Outside hospital imaging reviewed, the pt was admitted for further workup and treatment. See assessment and plan below. Active Hospital Problems Diagnosis ??? Aortic disorder Resolved Hospital Problems No resolved problems to display. There are no active non-hospital problems to display for this patient. Scheduled Medications: ??? acetaminophen 1,000 mg Intravenous Q6H DOM ??? bisacodyL 10 mg Rectal Daily ??? BIBLIOGRAPHIC SERVICES SPECIALIST shift total and Settings verification Intravenous 2 Times Daily- BIBLIOGRAPHIC SERVICES SPECIALIST Shift Total ??? aspirin 300 mg Rectal Daily ??? sodium chloride 0.9 % (flush) 5 mL Intravenous BID ??? senna-docusate 2 tablet Oral BID ??? sertraline 25 mg Oral Daily Operations This Hospitalization: 07/25 - ABF 07/26 - takeback, open embolectomy of R BAND MASTER, redo patch angioplasty Subjective: NGT adjusted yesterday given concern for malfunction with hiccups, thereafter worked appropriately overnight Pain control adequate with BIBLIOGRAPHIC SERVICES SPECIALIST Passing flatus ON, 2.15L out of NG tube over last 24hrs, 1L ON Net neg 2.1 L over last 24hrs Objective: Temp: [36.9 ??C (98.4 ??F)-37.7 ??C (99.9 ??F)] Heart Rate: [63-87] Resp: [9-25] BP: (144-180)/(89-111) SpO2: [93 %-99 %] Heart Rate from SpO2: [63 bpm-86 bpm] BMI: Weight: 89.7 kg (197 lb 12 oz) (07/25/22 1530) BMI (Calculated): 27.8 BMI Classification: OverWeight Intake/Output Summary (Last 24 hours) at 07/29/2022 1408 Last data filed at 07/29/2022 1200 Gross per 24 hour Intake 717.4 ml Output 4445 ml Net -3727.6 ml PHYSICAL EXAM: General: Alert, no acute distress Head: Atraumatic, non cyanotic, NGT to LCWS Cardiac: Regular rate on monitor Pulmonary: Normal respiratory effort Abdominal: Soft, minimally distended. Midline helga in place, incision c/d/i without erythema. B/l groin provenas in place and holding suction Neuro: Grossly intact, follows commands Extremities: Palpable DP bilaterally Labs: Recent Labs 07/29/22 01307/28/2244207/27/22 1800 07/27/22 0815 07/27/22 0526 WBC 9.1 8.9 9.2 10.2* 9.6* HGB 11.5* 10.3* 10.4* 11.2* 10.6* HCT 34.4* 30.7* 30.8* 32.7* 31.1* PLATELET 122* 112* 104* 96* 92* Recent Labs 07/29/22 [id number]/28/2244207/27/22 1800 07/27/22 0815 07/27/22 0526 07/27/22 0037 NA 139 139 138 138 139 138 K 3.9 3.7 3.8 4.0 4.3 3.8 CL 100 104 104 103 105 103 CO2 23 25 24 25 25 24 BUN 18 17 15 11 12 12 CREATININE 1.00 1.03 1.08 0.99 1.03 1.12 PHOS 3.8 -- 3.4 2.3* -- 2.8 CALCIUM 8.7 8.4* 8.5 8.8 8.5 8.5 Microbiology: None New Studies: Results for orders placed or performed during the hospital encounter of 07/24/22 XR Chest One View (Exam End: 07/25/2022 3:53 PM) Impression 1. Right IJ venous catheter with distal tip overlying the proximal right atrium. Consider retraction by approximately 3.5 cm. No visualized pneumothorax. 2. Mild pulmonary vascular congestion. Thank you for letting us participate in the care of this patient. If you are a health care provider and have any questions regarding this report, please contact the number below. For patients who have questions please contact the health daycare teacher that requested your imaging first. Angiogram Aortic Lower Extremity Runoff (Exam End: 07/26/2022 7:36 AM) Impression * Occluded entire LEFT limb of the aorto-bifemoral bypass from just beyond the level of the bifurcation. * Oligemia of distal LEFT foot arteries. * Soft tissue inflammatory changes about the aorta at the level of the graft, likely postsurgical sequela; no active extravasation seen. * Moderately large portion of devascularization of the LEFT kidney anteriorly. * Small amount of perisplenic hemorrhage/hemoperitoneum. * Small to moderate volume pneumoperitoneum, likely postsurgical. * Partially imaged trace pleural effusions and moderate dependent atelectasis/consolidations. * Urinary bladder wall thickening; correlate for any concern of cystitis. Thank you for letting us participate in the care of this patient. If you are a health care provider and have any questions regarding this report, please contact the number below. For patients who have questions please contact the health daycare teacher that requested your imaging first. Electronically signed by: Durga Lundberg MD, [facility] ([phone]), at 07/26/2022 7:58 AM Assessment & Plan: Antelmo Marquez is a 56 y.o. male with medical history significant for HTN, anxiety, 1PPD smoker who presented from an OSH with several days of lower extremity paresthesias, pain, worsening motor function and CT showing aortic occlusion. He is now s/p ABF performed on 07/25, complicated by postoperative LLE ischemia necessitating OR takeback, open embolectomy of R BAND MASTER, redo patch angioplasty on 07/26. He is now recovering well and has palpable pulses in both feet and normal motor/sensory function. Transferred out of the SICU on 07/27. Cardiology was consulted given reported family hx of APLA which appears to be negative. Will continue to normalize, remove villegas, and downgrade to floor status today. 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 No hypercoagulability workup needed Dispo: floor status, Attempt Cardiopulmonary Resuscitation - Inpatient Alaina Avalos MD 07/29/2022 Pager: [phone] * Allyn Rosales OT - 07/28/2022 8:30 AM EDT Occupational Therapy Evaluation Patient profile: Per MD note, Antelmo Marquez is a 56 y.o. male admitted on 07/24/2022 with medical history significant for HTN, anxiety, 1PPD smoker??who presents from an OSH??with several days of lower extremity paresthesias, pain, worsening motor function??and CT showing aortic occlusion. ? The patient was seen at an OSH earlier today reporting 24-28 hours of paresthesias in bilateral lower extremities along with significant RLE pain inhibiting movement. CT at the outside hospital identified an aortic occlusion, the patient was started on a heparin??drip??and transferred to [facility] for further evaluation by vascular surgery. ?? PMH??of hypertension and anxiety.??Currently smokes??roughly 1PPD for estimated 15 years.??No knownhistory of heart attack or stroke.??No prior surgeries.??Denies history of DVT/PE, bleeding or clotting disorders, is not on anticoagulation.??Confirms he takes clonazepam and sertraline daily for anxiety, he also takes several medications for HTN but is unsure which ones.??On presentation the pt is??hemodynamically normal.??Outside hospital imaging reviewed, the pt was admitted for further workup and treatment. See assessment and plan below. No past medical history on file. Past Surgical History: Procedure Laterality Date ??? PRO BYPASS GRAFT OTHR, AORTOBIFEMORAL N/A 07/25/2022 @BYPASS GRAFT, AORTOBIFEMORAL W\ SYNTHETIC CONDUIT (WRVU 32.98) performed by Rut Aguilera MD at [facility] MAIN OR ??? PRO EMBLC/THRMBC FEMORAL POPLITEAL AORTO-ILIAC ARTERY Left 07/26/2022 EMBOLECTOMY OR THROMBECTOMY, FEMOROPOPLITEAL, AORTOILIAC ARTERY BY LEG INCISION- LADAN (WRVU 19.48) performed by Marco Dior MD at [facility] MAIN OR ??? PRO REMOVAL OF CLOT IN GRAFT Left 07/26/2022 THROMBECTOMY ARTERIAL,VENOUS GRAFT (NOT FOR HEMODIALYSIS GRAFT) WITH REVISION, LOWER EXTREMITY (WRVU 17.82) performed by Marco Doir MD at [facility] MAIN OR Social History: Home setup: Pt lives alone in a 2 level apartment with no JASSI. The bedroom is on the second floor. Pt did report that he can stay on the first floor if needed, The bathroom has a tub shower. He reported that his oldest son can assisted if needed. Functional Status: Pt was independent prior to admission. DME: cane Falls: pt reported several falls recently due to LB weakness Precautions/Special Considerations: full code, falls, bleeding precautions, NPO, BIBLIOGRAPHIC SERVICES SPECIALIST, NGT, b/l groin wound vacs, L arterial line, AAT Subjective: I might yell but I am ready to move. Objective: Seen today for OT evaluation. Cognitive Status/Behavior: ?? Behavior / Mood: alert and cooperative ?? Alert and oriented to: person, place, date, month, year and situation ?? Follows commands: 1 step and 100% of the time ?? Attention: WFL ?? Safety awareness: WFL Vision & Perception: ?? WNL/WFL Communication: WFL Range of motion, strength, coordination: Hand dominance: right ROM: WF Strength: BUEs 5/5 throughout Sensation: Reported numbness and tingling in BLEs Skin: incisions and dressings clean and intact Activities of Daily Living: Self-feeding: Pt is NPO with NGT to suction Grooming: Set-up assist to wash face seated in recliner Dressing: Dependent to don socks while supine Bathing: Not assessed Toileting: Dependent, pt has villegas catheter, anticipate pt can pivot to commode for BM as needed with 2 assist using FWW Functional Mobility: Supine to sit: Mod A x 2 with HOB elevated, increased time provided and cues for log roll techniqueprovided. Pt did report some dizziness, pt was noted to be hypertensive (190s-200 via arterial line) Sit to stand: Min A x 2 with FWW, RN in room to assist with line/cord management as needed Ambulation: Min A x 2 with FWW to stand pivot transfer to recliner Stand to sit: Min A x 2 for eccentric control, cues for safety and positioning provided Sit to supine: Not assessed, pt left sitting in recliner with all needs met, call light in reach and chair alarm on, RN in room during session Balance: Sitting balance: good with BUEs for support on bed Standing balance:good with FWW Vitals: ?? HR: 70s throughout session ?? SpO2: 96% on 4L NC ?? BP (L a-line): 186/94 (127) at rest, 190s-220 with mobility Pain: Pt reported pain in bilateral groin sites, able to use BIBLIOGRAPHIC SERVICES SPECIALIST appropriately Education: patient have been educated on Role of occupational therapy/rehabilitation, Transfers, Assistive device/technique, ADL, Safety, Precautions/Protocol, Functional Mobility, Activity pacing/Energy conservation, Home Management, Balance, Recommendations and Discharge planning and verbalizes understanding. Patient status, treatment, and mobility recommendations discussed with nursing. Patient in chair with alarm set, call pichardo within reach, and all needs met. Assessment: Pt has been seen for occupational therapy evaluation. Antelmo Marquez presents with the following performance skill deficits and client factors: increased pain, decreased activity tolerance, decreased flexibility/ROM, decreased strength, decreased sitting/standing balance, sensory deficits, decreased postural control, deconditioning, precautions/bracing, compromised mobility status, coping and skin integrity. These performance deficits have led to activity limitations and participation restrictions in the following areas of occupation: dressing, bathing, grooming, toileting, self-feeding, transfers/mobility, rest/sleep, home management, leisure, driving and community mobility. Pt presents alert and agreeable to participating in therapy evaluation. Antelmo was able to transition to sitting unsupported EOB but did initially rely on BUEs to provide support to maintain sitting balance. He was then able to stand and pivot to the recliner with Min A x 2 using a FWW. He can complete grooming tasks with set-up assist. Pt lives alone and would benefit from discharge to acute rehab facility to maximize pt outcomes and reduce the risk of falls leading to injury and readmission to the hospital. Pt would benefit from further inpatient OT interventions to address performance deficits and maximize participation and independence with occupations of daily living. Equipment Recommendations: Equipment Needs Upon Discharge (OT): to be determined Anticipated Discharge Disposition (OT): acute rehabilitation facility EPM Level 4: Pivot to chair/commode, Participate in self care Other Recommendations: ?? Transfer to recliner chair as appropriate with Min A x 2 using FWW, ambulate as tolerated ?? Encourage participation in ADL's by providing set up A on tray table and physical assist only asneeded ?? Promote normalcy by encouraging participation in common daily tasks & leisure activities by providing set up assist Other Recommendations: No other consults recommended at this time Goals: To be achieved by 08/10/22. Patient will complete commode/toilet transfer with supervision assist and LRD. Pt will complete 2 grooming tasks sitting/standing at the sink with supervision assist and min cues. Pt will complete LB dressing with supervision assist using AE as needed. Pt will complete UB and LB bathing in sitting with supervision assist and min cues. Pt will complete functional transfers and mobility with supervision assist for participation in ADLs using self-pacing as needed and LRAD. Plan: OT: Therapy Frequency (OT): 2-3 times/wk Planned OT interventions: Role of occupational therapy/rehabilitation, Transfers, Assistive device/technique, Adaptive equipment training, ADL, Safety, Precautions/Protocol, Functional Mobility, Activity pacing/Energy conservation, Home Management, Balance, Recommendations and Discharge planning. Total Minutes, Occupational Therapy: 25 (08:30-08:55 Mod complexity eval) OT Evaluation Code Rationale: ?? Diagnosis & Pertinent Co-Morbidities affecting Plan of Care: see PMHx ?? Occupational Profile & Client History: Brief Expanded Extensive x ?? Assessment of Occupational Performance: 1-3 performance deficits 3-5 performance deficits 5 + performance deficits x ?? Clinical Decision Making: Low Moderate High x Clinical decision making of moderate complexity using standardized patient assessment instrument and measurable assessment of functional outcome. Pager: [phone] Allyn Rosales OTR/L 07/28/2022 Occupational Therapy Rehabilitation Department * Adi Hwang MD - 07/28/2022 8:29 AM EDT Vascular Surgery Progress Note Antelmo Marquez is a 56 y.o. male with medical history significant for HTN, anxiety, 1PPD smoker who presents from an OSH with several days of lower extremity paresthesias, pain, worsening motor function and CT showing aortic occlusion. The patient was seen at an OSH earlier today reporting 24-28 hours of paresthesias in bilateral lower extremities along with significant RLE pain inhibiting movement. CT at the outside hospital identified an aortic occlusion, the patient was started on a heparin drip and transferred to [facility] for further evaluation by vascular surgery. PMH of hypertension and anxiety. Currently smokes roughly 1PPD for estimated 15 years. No known history of heart attack or stroke. No prior surgeries. Denies history of DVT/PE, bleeding or clotting disorders, is not on anticoagulation. Confirms he takes clonazepam and sertraline daily for anxiety, he also takes several medications for HTN but is unsure which ones. On presentation the pt is hemodynamically normal. Outside hospital imaging reviewed, the pt was admitted for further workup and treatment. See assessment and plan below. Active Hospital Problems Diagnosis ??? Aortic disorder Resolved Hospital Problems No resolved problems to display. There are no active non-hospital problems to display for this patient. Scheduled Medications: ??? magnesium sulfate 2 g Intravenous Once ??? potassium chloride 10 mEq Intravenous Q2H ??? BIBLIOGRAPHIC SERVICES SPECIALIST shift total and Settings verification Intravenous 2 Times Daily- BIBLIOGRAPHIC SERVICES SPECIALIST Shift Total ??? aspirin 300 mg Rectal Daily ??? sodium chloride 0.9 % (flush) 5 mL Intravenous BID ??? senna-docusate 2 tablet Oral BID ??? sertraline 25 mg Oral Daily Operations This Hospitalization: 07/25 - ABF 07/26 - takeback, open embolectomy of R BAND MASTER, redo patch angioplasty Subjective: NGT adjusted yesterday given concern for malfunction with hiccups, thereafter worked appropriately overnight Poorly controlled pain, dPCA added. Improved this AM No flatus or BM, 1.45L out of NG tube over last 24hrs/ 800cc -737 net neg over last 24hrs Objective: Temp: [36.9 ??C (98.4 ??F)-37.1 ??C (98.8 ??F)] Heart Rate: [67-89] Resp: [10-18] BP: -- SpO2: [92 %-98 %] Heart Rate from SpO2: [67 bpm-89 bpm] BMI: Weight: 89.7 kg (197 lb 12 oz) (07/25/22 1530) BMI (Calculated): 27.8 BMI Classification: OverWeight Intake/Output Summary (Last 24 hours) at 07/28/2022 0734 Last data filed at 07/28/2022 0609 Gross per 24 hour Intake 3113 ml Output 3850 ml Net -737 ml PHYSICAL EXAM: General: Alert, no acute distress Head: Atraumatic, non cyanotic, NGT to LCWS Cardiac: Regular rate Pulmonary: Normal respiratory effort Abdominal: Soft, minimally distended. Midline helga, dressing c/d/i Neuro: Grossly intact, follows commands Extremities: Palpable DP bilaterally Labs: Recent Labs 07/28/22 0443 07/27/22 1800 07/27/22 0815 07/27/22 0526 07/27/22 0037 WBC 8.9 9.2 10.2* 9.6* 10.1* HGB 10.3* 10.4* 11.2* 10.6* 10.7* HCT 30.7* 30.8* 32.7* 31.1* 31.6* PLATELET 112* 104* 96* 92* 99* Recent Labs 07/28/22 0443 07/27/22 1800 07/27/22 0815 07/27/22 0526 07/27/22 0037 07/26/22 0210 07/25/22 2110 NA 139 138 138 139 138 < > 138 K 3.7 3.8 4.0 4.3 3.8 < > 4.0 CL 104 104 103 105 103 < > 103 CO2 25 24 25 25 24 < > 22 BUN 17 15 11 12 12 < > 16 CREATININE 1.03 1.08 0.99 1.03 1.12 < > 0.93 PHOS -- 3.4 2.3* -- 2.8 -- 3.0 CALCIUM 8.4* 8.5 8.8 8.5 8.5 < > 8.3* < > = values in this interval not displayed. Microbiology: None New Studies: Results for orders placed or performed during the hospital encounter of 07/24/22 XR Chest One View (Exam End: 07/25/2022 3:53 PM) Impression 1. Right IJ venous catheter with distal tip overlying the proximal right atrium. Consider retraction by approximately 3.5 cm. No visualized pneumothorax. 2. Mild pulmonary vascular congestion. Thank you for letting us participate in the care of this patient. If you are a health care provider and have any questions regarding this report, please contact the number below. For patients who have questions please contact the health daycare teacher that requested your imaging first. Angiogram Aortic Lower Extremity Runoff (Exam End: 07/26/2022 7:36 AM) Impression * Occluded entire LEFT limb of the aorto-bifemoral bypass from just beyond the level of the bifurcation. * Oligemia of distal LEFT foot arteries. * Soft tissue inflammatory changes about the aorta at the level of the graft, likely postsurgical sequela; no active extravasation seen. * Moderately large portion of devascularization of the LEFT kidney anteriorly. * Small amount of perisplenic hemorrhage/hemoperitoneum. * Small to moderate volume pneumoperitoneum, likely postsurgical. * Partially imaged trace pleural effusions and moderate dependent atelectasis/consolidations. * Urinary bladder wall thickening; correlate for any concern of cystitis. Thank you for letting us participate in the care of this patient. If you are a health care provider and have any questions regarding this report, please contact the number below. For patients who have questions please contact the health daycare teacher that requested your imaging first. Electronically signed by: Durga Lundberg MD, [facility] ([phone]), at 07/26/2022 7:58 AM Assessment & Plan: Antelmo Marquez is a 56 y.o. male with medical history significant for HTN, anxiety, 1PPD smoker who presented from an OSH with several days of lower extremity paresthesias, pain, worsening motor function and CT showing aortic occlusion. He is now s/p ABF performed on 07/25, complicated by postoperative LLE ischemia necessitating OR takeback, open embolectomy of R BAND MASTER, redo patch angioplasty on 07/26. He is now recovering well and has palpable pulses in both feet and normal motor/sensory function. Transferred out of the SICU on 07/27. Cardiology was consulted given reported family hx of APLA which appears to be negative. PLAN: - IV Tylenol, dPCA - daily labs - HLIV - maintain 500u/hr heparin, no UFH - NPO hold meds - maintain NGT to LCWS - OOB, PT/OT - Cardiology consult as above, appreciate recs.Will start Statin when NG is out, will consider Eliquis when able. No hypercoagulability workup needed Dispo: stepdown status, Attempt Cardiopulmonary Resuscitation - Inpatient Adi Hwang MD 07/28/2022 Pager: [phone] * Edwige Dominguez, PT - 07/28/2022 8:22 AM EDT Physical Therapy Evaluation Patient profile: Antelmo Marquez is a 56 y.o. male??with medical history significant for HTN, anxiety, 1PPD smoker??who presents from an OSH??with several days of lower extremity paresthesias, pain, worsening motor function??and CT showing aortic occlusion. ? The patient was seen at an OSH earlier today reporting 24-28 hours of paresthesias in bilateral lower extremities along with significant RLE pain inhibiting movement. CT at the outside hospital identified an aortic occlusion, the patient was started on a heparin??drip??and transferred to [facility] for further evaluation by vascular surgery. He is now s/p ABF performed on 07/25, complicated by postoperative LLE ischemia necessitating OR takeback, open embolectomy of R BAND MASTER, redo patch angioplasty on07/26. He is now recovering well and has palpable pulses in both feet and normal motor/sensory function. Patient with the following active problems: No past medical history on file. Past Surgical History: Procedure Laterality Date ??? PRO BYPASS GRAFT OTHR, AORTOBIFEMORAL N/A 07/25/2022 @BYPASS GRAFT, AORTOBIFEMORAL W\ SYNTHETIC CONDUIT (WRVU 32.98) performed by Rut Aguilera MD at [facility] MAIN OR ??? PRO EMBLC/THRMBC FEMORAL POPLITEAL AORTO-ILIAC ARTERY Left 07/26/2022 EMBOLECTOMY OR THROMBECTOMY, FEMOROPOPLITEAL, AORTOILIAC ARTERY BY LEG INCISION- LADAN (WRVU 19.48) performed by Marco Dior MD at [facility] MAIN OR ??? PRO REMOVAL OF CLOT IN GRAFT Left 07/26/2022 THROMBECTOMY ARTERIAL,VENOUS GRAFT (NOT FOR HEMODIALYSIS GRAFT) WITH REVISION, LOWER EXTREMITY (WRVU 17.82) performed by Marco Dior MD at [facility] MAIN OR Social History: Home setup: Pt lives alone in a two level apartment with 0 JASSI. Pt's bedroom is upstairs however hecan stay on the first floor. The bathroom has a tub shower. Pt states that his oldest son could assist him if needed Baseline Mobility/Prior level of function: Independent with mobility and ADLs at baseline, but had experienced several recent falls 2/2 LE weakness and impaired sensation. 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 EPM Level 4: Pivot to chair/commode, Participate in self care ?? Pt. to utilize rolling walker and min Ax2 for transfers OOB with nursing. ?? Please encourage up to chair for meal times as able. Subjective: Pt would like to get up to a chair Objective: Pt seen for evaluation today ??? Pain: R groin incision, especially with movement and hip flexion ??? Vital Signs: HR: 78bpm SpO2: 96% on 4L O2 BP: 184/93, SBP as high as 200-220 while mobilizing per a-line ?? Mental status: alert, oriented, cooperative ?? Safety Awareness: WFL ?? Command followin% of the time ?? Attention: WFL ?? Skin: B groin incisions with wound vacs ?? Musculoskeletal: ROM: B LEs grossly WFL, B hip flexion limited by incisional pain Strength: B LEs grossly at least 3/5 Sensation: light touch intact in B LEs ?? Bed Mobility: Supine to Sit: mod Ax2 via logroll to the R and use of bedrail. Pt felt dizzy after sitting upright; he was noted to be hypertensive (SBP 190-200) but vitals were otherwise stable. Sit to Supine: NA ??? Transfers: Sit to Stand: min Ax2 with rolling walker, RN provided additional standby for line management Stand to Sit: min Ax2 with rolling walker Bed to Chair: min Ax2 with rolling walker ??? Gait: NA today 2/2 multiple lines, pain, decreased strength, fatigue ??? Stairs: NA ??? Seated Balance: Static: good, sat at EOB for >5 mins with supervision Dynamic: appears good but assessment was limited by groin pain ??? Standing Balance: Static: poor, requires walker and min Ax2 Dynamic / Gait: poor, requires walker and min Ax2 to pivot from bed to chair ?? Education: patient has been educated on Bed mobility, Transfers, Assistive device/technique, Positioning, Safety , Precautions/protocol, Activity pacing/Energy conservation, Role of therapy and Discharge planning and verbalizes and demonstrates understanding but will benefit from ongoing [facility] ement. Patient status, treatment, and mobility recommendations discussed with nursing. Assessment: Pt seen today for physical therapy initial evaluation. Pt presents with pain, decreasedROM and flexibility, decreased strength, impaired balance, dizziness with position changes, and hemodynamic instability. These impairments currently limit pt's ability to safely and independently perform functional mobility tasks, including bed mobility, transfers, ambulation, stair negotiation, and daily activities. Pt required assist x2 to transfer OOB and to a chair today and ambulation was deferred 2/2 pain and fatigue. Pt is mobilizing below his baseline and would have difficulty managing at home based on his current functional status. Recommend d/c to acute inpatient rehabilitation when medically stable. Pt will benefit from ongoing physical therapy to address the above impairments and facilitate return to PLOF. Discharge Recommendations: Based on the current findings, Anticipated Discharge Disposition (PT): acute rehabilitation facility when medically ready for hospital discharge. Consult Recommendations: No other consults recommended at this time. Equipment needs: TBD, anticipate d/c to rehab Goals: To be achieved by 08/11/22: 1. Pt. to demonstrate knowledge of safety limitations and precautions and will appropriately request assistance for functional activities and to mobilize. 2. Pt. to demonstrate understanding of appropriate exercises. 3. Pt. to perform bed mobility independently. 4. Pt. to perform sit to stand and stand pivot transfers with supervision using a front wheeled walker. 5. Pt. to ambulate 150 feet with supervision using a front wheeled walker. 6. Pt. to ambulate up/down 2-4 step/stairs using two rails with supervision. 7. Pt will tolerate progression towards upright with stable vital signs. Plan: Therapy Frequency (PT): 2-4 times/wk for therapy including balance training, bed mobility training, gait training, patient/family education, stair training, strengthening and transfer training. 2017 PT Evaluation Code Rationale: ?? Diagnosis & Pertinent Co-Morbidities, personal factors, and present illness affecting Plan of Care: (see above); Additional personal factors or co- morbidities that impact plan: ?? Total # of Factors: 0 1-2 3+ X (admitted for ABF complicated by postoperative LLE ischemia necessitating open embolectomy of R BAND MASTER, multiple lines and tubes; lives alone) ?? Examination of body system impairments, functional limitations and behaviors, and/or participation restrictions. Addressing 1-2 elements Addressing 3 + elements Addressing 4 + elements X ?? Clinical presentation: See assessment above. Stable/Uncomplicated Evolving/Fluctuating Symptoms Unstable/Unpredictable X (pain, hemodynamics require close monitoring) ?? Clinical decision making of moderate complexity based on pt's functional performance as outlinedin this evaluation. Time IN / OUT: 0800-1079 Total Minutes, Physical Therapy: 34 (eval). Edwige Dominguez, PT DPT 07/28/2022 Pager: [phone] Physical Therapy Inpatient Rehabilitation Department * Christelle Pickering RD - 07/28/2022 8:07 AM EDT Nutrition NPO Note Antelmo Marquez is a 56 y.o. male with medical history significant for HTN, anxiety, 1PPD smoker??whopresents from an OSH??with several days of lower extremity paresthesias, pain, worsening motor function??and CT showing aortic occlusion. ?? Patient has been on NPO or on a clear liquid diet only for 4 days, increasing risk for malnutrition. If clinically unable to advance oral diet consider consult to Nutrition Services to evaluate for potential nutrition support. Visualized patient for overt cachectic appearance: no Active Orders Diet NPO diet (Hold Meds) Frequency: Effective Now Number of Occurrences: Until Specified Admit Weight: 92.99 kg Estimated body mass index is 26.82 kg/m?? as calculated from the following: Height as of this encounter: 182.9 cm (6'). Weight as of this encounter: 89.7 kg (197 lb 12 oz). Wt Readings from Last 5 Encounters: 07/25/22 89.7 kg (197 lb 12 oz) Patient Vitals for the past 168 hrs: Weight 07/25/22 1530 89.7 kg (197 lb 12 oz) 07/24/22 2047 93 kg (205 lb) Weight loss: SHARIFA, admit weight was reported and pt weighed only once since admit. Noted to be +6.3L Christelle Pickering RD Pager: [phone] * Earle Smith MD - 07/27/2022 7:59 AM EDT Vascular Surgery Progress Note Antelmo Marquez is a 56 y.o. male with medical history significant for HTN, anxiety, 1PPD smoker who presents from an OSH with several days of lower extremity paresthesias, pain, worsening motor function and CT showing aortic occlusion. The patient was seen at an OSH earlier today reporting 24-28 hours of paresthesias in bilateral lower extremities along with significant RLE pain inhibiting movement. CT at the outside hospital identified an aortic occlusion, the patient was started on a heparin drip and transferred to [facility] for further evaluation by vascular surgery. PMH of hypertension and anxiety. Currently smokes roughly 1PPD for estimated 15 years. No known history of heart attack or stroke. No prior surgeries. Denies history of DVT/PE, bleeding or clotting disorders, is not on anticoagulation. Confirms he takes clonazepam and sertraline daily for anxiety, he also takes several medications for HTN but is unsure which ones. On presentation the pt is hemodynamically normal. Outside hospital imaging reviewed, the pt was admitted for further workup and treatment. See assessment and plan below. Active Hospital Problems Diagnosis ??? Aortic disorder Resolved Hospital Problems No resolved problems to display. There are no active non-hospital problems to display for this patient. Scheduled Medications: ??? aspirin 300 mg Rectal Daily ??? acetaminophen 1,000 mg Intravenous Q8H DOM ??? sodium chloride 0.9 % (flush) 5 mL Intravenous BID ??? senna-docusate 2 tablet Oral BID ??? sertraline 25 mg Oral Daily Operations This Hospitalization: 07/25 - ABF 07/26 - takeback, open embolectomy of R BAND MASTER, redo patch angioplasty Subjective: CK remains low, palpable pulse in BLE. Abd soft, dressing down this AM. AUOP. Objective: Temp: [35.7 ??C (96.3 ??F)-37.6 ??C (99.7 ??F)] Heart Rate: [67-102] Resp: [12-18] BP: (122-151)/(71-83) SpO2: [89 %-98 %] Heart Rate from SpO2: [67 bpm-101 bpm] BMI: Weight: 89.7 kg (197 lb 12 oz) (07/25/22 1530) BMI (Calculated): 27.8 BMI Classification: OverWeight Intake/Output Summary (Last 24 hours) at 07/27/2022 5132 Last data filed at 07/27/2022 0648 Gross per 24 hour Intake 8188 ml Output 6320 ml Net 1868 ml PHYSICAL EXAM: General: Alert, no acute distress Head: Atraumatic, non cyanotic Cardiac: Regular rate Pulmonary: Normal respiratory effort Abdominal: Soft, non distended Neuro: Grossly intact, follows commands Extremities: Palpable DP bilaterally Labs: Recent Labs 07/27/22 0526 07/27/22 0037 07/26/225 07/26/22 1155 07/26/22 1030 WBC 9.6* 10.1* 9.3 8.6 9.9* HGB 10.6* 10.7* 11.0* 11.1* 12.2* HCT 31.1* 31.6* 33.0* 33.1* 36.3* PLATELET 92* 99* 105* 105* 108* Recent Labs 07/27/22 0526 07/27/227 07/26/22 1735 07/26/22 11507/26/22 1030 07/26/22 0210 07/25/22 2110 07/25/22 1520 07/25/22 0421 NA 139 138 138 136 136 < > 138 < > 137 K 4.3 3.8 4.0 4.2 4.0 < > 4.0 < > 4.0 CL 105 103 104 103 104 < > 103 < > 106 CO2 25 24 24 23 22 < > 22 < > 19* BUN 12 12 11 11 11 < > 16 < > 19 CREATININE 1.03 1.12 1.10 0.98 0.96 < > 0.93 < > 0.84 PHOS -- 2.8 -- -- -- -- 3.0 -- 2.5 CALCIUM 8.5 8.5 8.4* 7.9* 8.2* < > 8.3* < > 8.1* < > = values in this interval not displayed. Microbiology: None New Studies: None Assessment & Plan: Antelmo Marquez is a 56 y.o. male with medical history significant for HTN, anxiety, 1PPD smoker who presents from an OSH with several days of lower extremity paresthesias, pain, worsening motor function and CT showing aortic occlusion. ABF performed, complicated by postoperative RLE ischemia. PLAN: - Stepdown today - space labs to q12, d/c CK and coags - decrease fluid rate - maintain 500u/hr heparin, no UFH - Vascular medicine consultation - NPO hold meds - maintain NGT to LCWS Dispo: stepdown status, Attempt Cardiopulmonary Resuscitation - Inpatient Earle Smith MD 07/27/2022 Pager: [phone] * Adi Hwang MD - 07/26/2022 1:36 PM EDT Vascular Surgery Post Op Check Antelmo Marquez is a 56 y.o. male status post thrombectomy of left ABF limb S: No nausea/vomiting, chest pain, SOB, pain well controlled, offers no complaints. Pain and numbness in left foot much improved. Feels very well O: Temp: [35.7 ??C (96.3 ??F)-37.8 ??C (100 ??F)] Heart Rate: [67-91] Resp: [12-20] BP: -- SpO2: [92 %-98 %] Heart Rate from SpO2: [67 bpm-94 bpm] I/O last 3 completed shifts: In: 96874.2 [I.V.:09207.2; Blood:228; Other:500; NG/GT:60] Out: 60800 [Urine:8825; Other:1050; Blood:646] I/O this shift: In: 1200 [I.V.:1200] Out: 1550 [Urine:1300; Blood:250] UOP since OR: 550cc+ Physical Exam General: NAD, resting comfortably HEENT: PERRL, anicteric sclerae, NGT to LCWW CVS: Regular rate Pulm: Breathing comfortably on 6L NC Abd: soft, non tender, minimally distended, midline dressing c/d/i Ext: BLE compartments soft, bilateral groin provenas holding suction. BLE warm and pink Neuro: CN 2-12 grossly intact, nonfocal, moving all extremities. Sensation intact in extremities bilaterally symmetric. Motor function intact in extremities, bilaterally symmetric. Vascular Exam: Right DP/PT palpable Left DP/PT signals AP Antelmo Marquez is a 56 y.o. male status post thrombectomy of left ABF limb currently in stable condition and recovering well - ok for ID ASA and SQH - SBP goal 100-160 - 200/hr, continue crystalloid fluid resuscitation - q6h labs - q1h compartment / NV checks - strict NPO, NGT - HOB 30 Adi Hwang MD Vascular Surgery 07/26/22 [id number] * Tigre Sandoval MD - 07/26/2022 1:19 PM EDT Surgical Critical Care Progress Note History of Present Illness: nAtelmo Marquez is a 56 y.o. man with PMH of HTN, anxiety, tobacco use who was transferred from OSH to [facility] on 07[place]24 with pulseless lower extremities after one day of severe pain with paresthesias inBLLE. He was originally found by CT to have an infrarenal aortic occlusion with no distal pulses atOSH. He was admitted to vascular surgery and is now s/p aortobifemoral bypass. Post- operatively, hewas transferred to the SICU for neurovascular checks. Patient seen and examined on critical care rounds. Problem List: HTN Anxiety Acute limb ischemia/aortic occlusion s/p aortobifemoral bypass Tobacco use (long-standing) 24 Hour Events: POD 1 s/p aoritobifem bypass. Midline abdominal incision. Supraceliac clamp time 7 minutes, infrarenal for 20 minutes, leg clamp time 1 hr 20-23 min each leg. Mannitol administered. 14x7mm dacron graft to bilateral BAND MASTER extending onto profunda arteries. End to end proximal anastomosis, end to side distal anastomoses. No BAND MASTER endarterectomies performed. DP PT signals b/l at completion of procedure. Compartments soft at completion. Extubated post-op. Taken back to OR for loss of signals in left foot overnight. Physical Exam Last value Range last 24 hrs Temperature Temp: 36.9 ??C (98.4 ??F) Temp: [34.9 ??C (94.8 ??F)-37.8 ??C (100 ??F)] Heart Rate Heart Rate: 93 Heart Rate: [67-93] Blood Pressure BP: (!) 139/96 BP: (121-139)/(86-104) Respiratory Rate Resp: 14 Resp: [12-21] SpO2 SpO2: 95 % SpO2: [87 %-98 %] Gen: Resting but rousable, NAD, A&Ox3 when awake HEENT: Sclera non-icteric, PERRL CV: RRR, no m/r/g RESP: CTAB, no wheezing ABD: Soft, normoactive bowel sounds EXT: dopplerable DP, PT's bilaterally Neuro: Grossly intact Labs: CMP Recent Labs 07/26/22 1155 07/26/22 1030 07/26/22 1029 07/26/22 0410 07/26/22 0210 07/26/22 0208 07/25/22 2244 07/25/22 2110 07/25/22 1742 07/25/22 1542 07/25/22 1520 07/25/22 1334 07/25/22 0934 07/25/22 0421 07/24/22 2148 07/24/222114 NA 136 136 -- -- 139 139 -- -- 138 -- -- 140 -- -- 137 -- 139 K 4.2 4.0 -- -- 4.2 4.2 -- -- 4.0 -- -- 3.8 -- -- 4.0 -- 3.9 CL 103 104 -- -- 105 105 -- -- 103 -- -- 104 -- -- 106 -- 107 BUN 11 11 -- -- 12 -- -- 16 -- -- 19 -- -- 19 -- 23* CREATININE 0.98 0.96 -- -- 0.99 -- -- 0.93 -- -- 0.97 -- -- 0.84 -- 1.05 CO2 23 22 -- -- 24 24 -- -- 22 -- -- 19* -- -- 19* -- 20* GLUCOSE 132 132 -- -- 145 -- -- 179 -- -- 181 -- -- 66 -- 73 ANIONGAP 10 10 -- -- 10 10 -- -- 13 -- -- 17* -- -- 12 -- 12 CALCIUM 7.9* 8.2* -- -- 8.4* -- -- 8.3* -- -- 8.9 -- -- 8.1* -- 8.7 MAGNESIUM -- -- -- -- 0.73 -- -- -- -- -- -- -- -- 0.61* -- -- PHOS -- -- -- -- -- -- -- 3.0 -- -- -- -- -- 2.5 -- -- PROT 5.2* 5.6* -- -- 5.6* -- -- 5.7* -- -- 5.9* -- -- -- -- 6.7 ALBUMIN 3.1* 3.3 -- -- 3.3 -- -- 3.5 -- -- 3.2 -- -- -- -- 3.7 AST -- Not Perf -- -- 49* -- -- 53* -- -- 67* -- -- -- -- 17 ALT 22 25 -- -- 24 -- -- 25 -- -- 34 -- -- -- -- 13 ALKPHOS 47 53 -- -- 53 -- -- 58 -- -- 74 -- -- -- -- 77 BILITOT 0.4 0.5 -- -- 0.3 -- -- 0.4 -- -- 0.4 -- -- -- -- 0.4 ESTGFR 92 94 -- -- 91 -- -- 98 -- -- 93 -- -- 104 -- 84 LACTATEVEN -- -- 1.8 1.3 -- 1.7 1.5 -- 1.7 1.9 -- 1.7 < > -- < > -- < > = values in this interval not displayed. CBC Recent Labs 07/26/22 1155 07/26/22 1030 07/26/22 0210 07/25/22210907/25/22 1520 07/25/22 04207/24/222114 WBC 8.6 9.9* 7.8 7.6 13.9* 6.6 8.1 RBC 3.58* 3.91* 3.95* 4.17* 5.00 3.94* 4.80 HGB 11.1* 12.2* 12.4* 12.9* 15.3 12.3* 15.0 HCT 33.1* 36.3* 36.3* 38.8* 46.9 36.9* 44.0 MCV 92.5 92.8 91.9 93.0 93.8* 93.7* 91.7 MCH 31.0 31.2 31.4 30.9 30.6 31.2 31.3 MCHC 33.5 33.6 34.2 33.2 32.6 33.3 34.1 MPV 10.4 10.5 9.9 9.9 10.5 10.1 10.0 INR Recent Labs 07/26/22 1155 07/26/22 1030 07/26/22 0210 07/25/22 2110 07/25/22 1520 07/24/222114 PT -- 13.3* -- -- 11.8 13.2* PTT 34 35 32 33 35 >160* INR -- 1.2 -- -- 1.0 1.2 Assessment/Plan: Antelmo Marquez is a 56 y.o. man with pmhx of HTN, tobacco use, anxiety and occlusion of infrarenal aorta now s/p aortobifemoral bypass 07/25, followed by [facility] for embolectomy overnight. Recovering well post-operatively. Will draw full set of labs and maintain q1hr neurovascular checks with blood pressure goals of 100-140 SBP. ?? Neuro: - Pain control: acetaminophen, IV dilaudid - home meds: Clonazepam prn ?? CV: S/p aortobifemoral bypass - Q1 hour neurovascular checks - vasopressors: None - SBP goal: 100-140 - Nicardipine gtt - Doppler able DP,PT bilaterally ?? Pulm: JENNIFER ?? FEN/GI: NPO give meds - ??LR @ 200 ml/hr; replete electrolytes prn ?? : villegas, monitor UOP ?? Endo: JENNIFER ?? Heme/ID: JENNIFER ?? PPx: - DVT: SCD's, ASA ?? Patient Lines/Drains/Airways Status Active Tubes/Lines/Drains Name Placement date Placement time Site Days Percutaneous Central Line - Triple Lumen internal jugular vein, right -- -- -- -- Peripheral IV Line - Single Lumen 07/24/22 1700 metacarpal vein (top of hand), left 20 gauge 07/24/22 1700 -- 2 Peripheral IV Line - Single Lumen 07/24/22 1500 median cubital vein (antecubital fossa), right 20 gauge 07/24/22 1500 -- 2 Peripheral IV Line - Single Lumen 07/25/22 0833 metacarpal vein (top of hand), left 16 gauge 07/25/22 0833 -- 1 Urethral Catheter 07/25/22 1014 14 07/25/22 1014 -- 1 Naso/Oral Tube 07/25/22 0730 [place] sump right nostril 07/25/22 0730 right nostril 1 Arterial Line 07/26/22 0410 radial artery, left 20 gauge 07/26/22 0410 -- less than 1 Maintain all current lines. Disp: admit to ICU, Critical Care Red 1 IS PATIENT CRITICALLY ILL ? * Is there a high potential of sudden, clinically significant, or life threatening deterioration? YES * Is there a need for direct personal assessment and management to treat/prevent multiple vital organ failure/deterioration? YES PATIENT IS CRITICALLY ILL WITH THESE DIAGNOSES BEING MANAGED BY [facility] TEAM: Metabolic acidosis Acute limb ischemia s/p embolectomy This time reflected the following activities [x] Evaluation of patient [x] Review test results or imaging studies [x] Discussion of the patients care with other medical staff [x] Documenting critical care services [] Discussion with family/surrogate medical decision makers [] Obtaining medical history [] Reviewing condition or prognosis [] Treatment discussion [] Limitation of treatment 30 minutes spent in providing critical care services (including evaluation and patient management, review of diagnostic tests and laboratory values, and coordination of care). I was present in the intensive care area for all services provided. This is exclusive of procedural time. Tigre Sandoval MD 07/26/2022 * Earle Smith MD - 07/26/2022 6:20 AM EDT Vascular Surgery Progress Note Antelmo Marquez is a 56 y.o. male with medical history significant for HTN, anxiety, 1PPD smoker who presents from an OSH with several days of lower extremity paresthesias, pain, worsening motor function and CT showing aortic occlusion. The patient was seen at an OSH earlier today reporting 24-28 hours of paresthesias in bilateral lower extremities along with significant RLE pain inhibiting movement. CT at the outside hospital identified an aortic occlusion, the patient was started on a heparin drip and transferred to [facility] for further evaluation by vascular surgery. PMH of hypertension and anxiety. Currently smokes roughly 1PPD for estimated 15 years. No known history of heart attack or stroke. No prior surgeries. Denies history of DVT/PE, bleeding or clotting disorders, is not on anticoagulation. Confirms he takes clonazepam and sertraline daily for anxiety, he also takes several medications for HTN but is unsure which ones. On presentation the pt is hemodynamically normal. Outside hospital imaging reviewed, the pt was admitted for further workup and treatment. See assessment and plan below. Active Hospital Problems Diagnosis ??? Aortic disorder Resolved Hospital Problems No resolved problems to display. There are no active non-hospital problems to display for this patient. Scheduled Medications: ??? aspirin 300 mg Rectal Daily ??? sodium chloride 0.9 % (flush) 5 mL Intravenous BID ??? senna-docusate 2 tablet Oral BID ??? sertraline 25 mg Oral Daily Operations This Hospitalization: 07/25 - AB Subjective: No signals in RLE overnight, ongoing parasthesia/partial motor deficits Objective: Temp: [35.7 ??C (96.3 ??F)-37.8 ??C (100 ??F)] Heart Rate: [67-102] Resp: [12-20] BP: (121-139)/(86-104) SpO2: [87 %-98 %] Heart Rate from SpO2: [67 bpm-101 bpm] BMI: Weight: 89.7 kg (197 lb 12 oz) (07/25/22 1530) BMI (Calculated): 27.8 BMI Classification: OverWeight Intake/Output Summary (Last 24 hours) at 07/26/2022 1800 Last data filed at 07/26/2022 1722 Gross per 24 hour Intake 19617 ml Output 25752 ml Net 925 ml PHYSICAL EXAM: General: Alert, no acute distress Head: Atraumatic, non cyanotic Cardiac: Regular rate Pulmonary: Normal respiratory effort Abdominal: Soft, non distended Neuro: Grossly intact, follows commands Extremities: LLE with biphasic DP/PT signals, no RLE signals or pedal/femoral pulse Labs: Recent Labs 07/26/22 1155 07/26/22 1030 07/26/22 0210 07/25/22 2110 07/25/22 1520 WBC 8.6 9.9* 7.8 7.6 13.9* HGB 11.1* 12.2* 12.4* 12.9* 15.3 HCT 33.1* 36.3* 36.3* 38.8* 46.9 PLATELET 105* 108* 111* 106* 151 Recent Labs 07/26/22 1155 07/26/22 1030 07/26/22 0210 07/25/22 2110 07/25/22 1520 07/25/22 0421 NA 136 136 139 139 138 140 137 K 4.2 4.0 4.2 4.2 4.0 3.8 4.0 CL 103 104 105 105 103 104 106 CO2 23 22 24 24 22 19* 19* BUN 11 11 12 16 19 19 CREATININE 0.98 0.96 0.99 0.93 0.97 0.84 PHOS -- -- -- 3.0 -- 2.5 CALCIUM 7.9* 8.2* 8.4* 8.3* 8.9 8.1* Microbiology: None New Studies: None Assessment & Plan: Antelmo Marquez is a 56 y.o. male with medical history significant for HTN, anxiety, 1PPD smoker who presents from an OSH with several days of lower extremity paresthesias, pain, worsening motor function and CT showing aortic occlusion. ABF performed, complicated by postoperative RLE ischemia. PLAN: - RTOR for RLE thrombectomy via CT scan - vascular medicine consultation Dispo: ICU status, Attempt Cardiopulmonary Resuscitation - Inpatient Earle Smith MD 07/26/2022 Pager: [phone] * Deja Chambers MD - 07/25/2022 11:05 PM EDT Brief Critical Care Attending Progress Note: Team notified by bedside RN earlier in the evening of loss of DP pulses on L foot. Patient personally seen and examined. HD stable, satting mid 90s on 6L NC. C/o parasthesias to L foot, but denies overt pain. In comparison to 1630, L foot cooler and much duskier. Compartment of calf remain soft. Thigh and calf warm and well-perfused. Motor intact. Unable to doppler DP or popliteal pulse on L. Attempted use of bedside ultrasound, but also unable to locate pulsatile flow. Lactate remains < 2. Urine output >>1cc/kg. CK, HCO3 stable. Vascular team contacted and updated by nursing as well as critical care team. They will continue toevaluate and request additional IVF. Deja Chambers MD * Adi Hwang MD - 07/25/2022 5:30 PM EDT Vascular Surgery Post Op Check Antelmo Marquez is a 56 y.o. male status post Aortobifemoral bypass S: No nausea/vomiting, chest pain, SOB, pain well controlled, offers no complaints O: Temp: [34.9 ??C (94.8 ??F)-36 ??C (96.8 ??F)] Heart Rate: [74-89] Resp: [14-21] BP: -- SpO2: [92 %-96 %] Heart Rate from SpO2: [74 bpm-91 bpm] I/O last 3 completed shifts: In: 733 [I.V.:733] Out: 0 I/O this shift: In: 5578.2 [I.V.:5350.2; Blood:228] Out: 3071 [Urine:2325; Other:100; Blood:646] UOP since OR: 775cc Physical Exam General: NAD, resting comfortably HEENT: PERRL, anicteric sclerae, NGT to LCWW CVS: Regular rate Pulm: Breathing comfortably on 4L NC Abd: soft, non tender, minimally distended, midline dressing c/d/i Ext: BLE compartments soft, bilateral groin provenas holding suction Neuro: CN 2-12 grossly intact, nonfocal, moving all extremities. Sensation intact in extremities bilaterally symmetric. Motor function intact in extremities, bilaterally symmetric. Vascular Exam: Right DP/PT signals Left DP signal faint AP Antelmo Marquez is a 56 y.o. male status post Aortobifemoral bypass currently in stable condition and recovering well - SBP goal 100-160 - 200/hr, continue crystalloid fluid resuscitation - q6h labs - q1h compartment / NV checks - strict NPO, NGT (confirmed intraop) - HOB 30 Adi Hwang MD Vascular Surgery 07/25/22 * Yulia Arita RN - 07/25/2022 7:50 AM EDT Heparin drip paused at 0717 for OR, per MD request. Taken to OR at 0750 with anesthesia. * Marco Dior MD - 07/25/2022 7:42 AM EDT [facility] staff I had a discussion with Mr. Marquez regarding the status of the perfusion of his lower extremities. One day ago he developed severe pain with paresthesias in both lower legs. He presented to an outsidehospital where a CT scan revealed an infra-renal aortic occlusion. Upon presentation [place] [facility], he has intact motor and sensory function, but does have paresthesias, and no signals in his feet. I discussed with him that I believe this is an acute on chronic problem, but now that he has progressed to this degree of limb ischemia, he is at high risk of limb loss without reperfusion. In fact, without reperfusion, since his aorta is occluded up to the renals, he may not be able to heal even high amputations. We also discussed that even with revascularization, he remains at risk of limb loss or other limb complications. We then discussed surgical management options. This includes extraanatomic bypass, with axillobifemoral or thoracobifemoral bypass, or in line reconstruction with aortobifemoral bypass. ABF in this case would require a supraceliac clamp with removal of the george-renal thrombus. Extraanatomic bypass would come with a lower overall surgical risk, however given his young age at 56, would not be nearly as durable as ABF based on the published literature. We discussed that the risk of mortality with ABF is at least 10%, and in addition comes with other risks including kidney injury, bowel injury, NM, stroke, prolonged ICU stay, and graft infection, among others. Extraanatomic bypass lessens some of these risks, but does not negate them. We then discussed these options, along with no revasc, and their risks and benefits. Mr. Marquez was clear in stating that he did want to proceed with surgery. He also stated that he would like to proceed with the option that would last the longest, which would be aortobifemoral bypass. We will plan to do this as soon as possible. Marco Dior * Adi Hwang MD - 07/25/2022 7:24 AM EDT Vascular Surgery Progress Note Antelmo Marquez is a 56 y.o. male with medical history significant for HTN, anxiety, 1PPD smoker who presents from an OSH with several days of lower extremity paresthesias, pain, worsening motor function and CT showing aortic occlusion. The patient was seen at an OSH earlier today reporting 24-28 hours of paresthesias in bilateral lower extremities along with significant RLE pain inhibiting movement. CT at the outside hospital identified an aortic occlusion, the patient was started on a heparin drip and transferred to [facility] for further evaluation by vascular surgery. PMH of hypertension and anxiety. Currently smokes roughly 1PPD for estimated 15 years. No known history of heart attack or stroke. No prior surgeries. Denies history of DVT/PE, bleeding or clotting disorders, is not on anticoagulation. Confirms he takes clonazepam and sertraline daily for anxiety, he also takes several medications for HTN but is unsure which ones. On presentation the pt is hemodynamically normal. Outside hospital imaging reviewed, the pt was admitted for further workup and treatment. See assessment and plan below. Active Hospital Problems Diagnosis ??? Aortic disorder Resolved Hospital Problems No resolved problems to display. There are no active non-hospital problems to display for this patient. Scheduled Medications: ??? magnesium sulfate 2 g Intravenous Once ??? sodium chloride 0.9 % (flush) 5 mL Intravenous BID ??? senna-docusate 2 tablet Oral BID ??? sertraline 25 mg Oral Daily Operations This Hospitalization: None Subjective: Pain well controlled, denies nausea, vomiting, chest pain or shortness of breath. NAEON NPO for OR Objective: Temp: [36.4 ??C (97.5 ??F)-36.8 ??C (98.2 ??F)] Heart Rate: [48-58] Resp: [11-17] BP: (126-143)/(83-100) SpO2: [92 %-97 %] Heart Rate from SpO2: [47 bpm-58 bpm] BMI: Weight: 93 kg (205 lb) (07/24/222046) BMI (Calculated): 27.8 BMI Classification: Over Weight Intake/Output Summary (Last 24 hours) at 07/25/2022 0712 Last data filed at 07/25/2022 0454 Gross per 24 hour Intake 733 ml Output 0 ml Net 733 ml PHYSICAL EXAM: General: Alert, no acute distress Head: Atraumatic, non cyanotic Cardiac: Regular rate Pulmonary: Normal respiratory effort Abdominal: Soft, non distended Neuro: Grossly intact, follows commands Extremities: Bilateral lower extremities cool, slightly pale. No palpable pulses, no doppler signals present in bilateral lower extremities. Bilateral femoral pulses are palpable. Pain with ROM of BLE. Is able to move toes and ankles (L > R) and lift both feet off of the bed Labs: Recent Labs 07/25/2242007/24/222114 WBC 6.6 8.1 HGB 12.3* 15.0 HCT 36.9* 44.0 PLATELET 129* 153 Recent Labs 07/25/2242007/24/222114 NA 137 139 K 4.0 3.9 CL 106 107 CO2 19* 20* BUN 19 23* CREATININE 0.84 1.05 PHOS 2.5 -- CALCIUM 8.1* 8.7 Microbiology: None New Studies: None Assessment & Plan: Antelmo Marquez is a 56 y.o. male with medical history significant for HTN, anxiety, 1PPD smoker who presents from an OSH with several days of lower extremity paresthesias, pain, worsening motor function and CT showing aortic occlusion. Patient admitted and started on therapeutic heparin drip with plan for aortobifemoral bypass and bilateral femoral endarterectomies PLAN: - OR today as above for aortobifemoral bypass and bilateral femoral endarterectomies, consent in chart - NPO diet (Give Meds) - Continue heparin drip, monitor UFH, Hold admissions gate attendant this AM for OR - Consult to pharmacy in AM for med rec re: home antihypertensive regimen - IVF: LR 100cc/hr - Pain control: tylenol, prn oxy - DVT ppx: SCDs - Continue home sertraline & clonazepam Dispo: Stepdown status, Attempt Cardiopulmonary Resuscitation - Inpatient Adi Hwang MD 07/25/2022 Pager: [phone] documented in this encounter H&P Notes * Tigre Sandoval MD - 07/25/2022 2:58 PM EDT Critical Care - Admission Note History of Present Illness: Antelmo Marquez is a 56 y.o. male with PMH of HTN, anxiety, tobacco use who was transferred from OSH to [facility] on 07/24 with pulseless lower extremities after one day of severe pain with paresthesias in BLLE. He was originally found by CT to have an infrarenal aortic occlusion with no distal pulses at OSH. He was admitted to vascular surgery and is now s/p aortobifemoral bypass. Post- operatively, he was transferred to the SICU for neurovascular checks. Review of Systems: Unable to obtain d/t patient being sedated and awakening from anesthesia. Past Medical Surgery: HTN Anxiety Past and Surgical History: No past surgical history on file. Prior To Admission Medications: No medications prior to admission. Current Medications: ??? magnesium sulfate 2 g in sterile water 50 mL infusion ??? sodium chloride 0.9 % (flush) (BD PosiFlush Normal Saline 0.9) flush 5 mL ??? sodium chloride 0.9 % (flush) (BD PosiFlush Normal Saline 0.9) flush 5-20 mL ??? lidocaine (Xylocaine) 1% (10 mg/mL) injection 3 mg ??? heparin (porcine) 50 units/mL in dextrose 5% 500 mL infusion AND [DISCONTINUED] heparin (porcine) (1,000 units/mL) injection 0-8,000 Units ??? senna-docusate (Pericolace) 8.6-50 mg per tablet 2 tablet ??? lactated ringers infusion ??? acetaminophen (Tylenol) tablet 975 mg ??? oxyCODONE (Roxicodone) tablet 5 mg ??? sertraline (Zoloft) tablet 25 mg ??? clonazePAM (KlonoPIN) tablet 0.5 mg ??? fentaNYL (pf) (50 mcg/mL) multi-dose injection ??? PHENYLephrine (Norman-Synephrine) (80 mcg/mL) in sodium chloride 0.9% 250 mL infusion ??? midazolam (pf) (Versed) (1 mg/mL) multi-dose injection ??? propofoL (Diprivan) 10 mg/mL bolus injection (Anesthesia) ??? rocuronium (Zemuron) (10 mg/mL) multi-dose injection ??? cefTRIAXone (Rocephin) injection ??? dexAMETHasone (Decadron) injection ??? PHENYLephrine in NS (PF) (NORMAN-SYNEPHRINE) 0.8 mg/10 mL (80 mcg/mL) multi- dose injection Syringe ??? lidocaine (pf) (Xylocaine) (20 mg/mL) 2% injection syringe ??? lactated ringers infusion ??? sodium chloride 0.9% infusion ??? sodium chloride 0.9% infusion ??? sodium bicarbonate 8.4 % (1 meq/ml) IV solution ??? heparin (porcine) (1,000 units/mL) injection ??? calcium chloride 10% (100 mg/mL) injection ??? mannitoL (less than 50 grams) 25% injection ??? niCARdipine (Cardene) (0.5 mg/mL) infusion (Anesthesia) ??? niCARdipine (Cardene) injection ??? electrolyte replacement solution (pH 7.4) (Normosol-R, Plasmalyte-A) infusion ??? NORepinephrine (Levophed) injection ??? protamine (10 mg/mL) injection ??? sugammadex (Bridion) 100 mg/mL injection ??? ondansetron (pf) (Zofran) (2 mg/mL) injection Allergies: No Known Allergies Family History: No family history on file. Social History and Habits: Social History Socioeconomic History ??? Marital status: Not on file Spouse name: Not on file ??? Number of children: Not on file ??? Years of education: Not on file ??? Highest education level: Not on file Occupational History ??? Not on file Tobacco Use ??? Smoking status: Never Passive exposure: Never ??? Smokeless tobacco: Never Vaping Use ??? Vaping Use: Never used Substance and Sexual Activity ??? Alcohol use: Not Currently ??? Drug use: Not Currently Comment: 'in the 80's' ??? Sexual activity: Not Currently Other Topics Concern ??? Not on file Social History Narrative ??? Not on file Social Determinants of Health Financial Resource Strain: Not on file Food Insecurity: Not on file Transportation Needs: Not on file Physical Activity: Not on file Housing Stability: Not on file Physical Exam: Last Set of Vitals and range of vitals over past 24 hours: Last value Range last 24 hrs Temperature Temp: 36.8 ??C (98.2 ??F) Temp: [36.4 ??C (97.5 ??F)-36.8 ??C (98.2 ??F)] Heart Rate Heart Rate: (!) 48 Heart Rate: [48-58] Blood Pressure BP: 135/87 BP: (126-143)/(83-100) Respiratory Rate Resp: 16 Resp: [11-17] SpO2 SpO2: 97 % SpO2: [92 %-97 %] Gen: Awakening from anesthesia, awake, NAD HEENT: Sclera non-icteric, PERRL CV: RRR, no m/r/g RESP: CTAB, no wheezing, ABD: Soft, normoactive bowel sounds EXT: Slightly mottled LE's; dopplerable DP, PT's bilaterally Neuro: Grossly intact Laboratory (Last 24 Hours): Recent Results (from the past 24 hour(s)) Comprehensive metabolic panel (non-fasting) Result Value Ref Range Glucose Lvl 73 65 - 199 mg/dL BUN 23 (H) 10 - 20 mg/dL Creatinine 1.05 0.80 - 1.50 mg/dL Sodium 139 135 - 145 mmol/L Potassium 3.9 3.5 - 5.0 mmol/L Chloride 107 98 - 107 mmol/L CO2 20 (L) 22 - 31 mmol/L Anion Gap 12 5 - 15 mmol/L Calcium 8.7 8.5 - 10.5 mg/dL Total Protein 6.7 6.1 - 8.0 g/dL Albumin 3.7 3.2 - 5.2 g/dL AST 17 0 - 39 unit/L ALT 13 0 - 55 unit/L Alk Phos 77 40 - 130 unit/L Total Bilirubin 0.4 0.2 - 1.3 mg/dL Estimated GFR 84 >=60 mL/min/1.73 m?? Prothrombin Time Result Value Ref Range PT 13.2 (H) 9.4 - 12.5 sec INR 1.2 APTT Result Value Ref Range PTT >160 (CRIT) 25 - 37 sec Heparin (unfractionated) Level Result Value Ref Range Heparin UFH Level 1.05 (CRIT) IU/mL ABO/Rh Typing Result Value Ref Range ABORh Type O Pos Antibody screen Result Value Ref Range Ab Screen Interp Negative Expires at 2359 on: 07/27/2022 Hemogram Result Value Ref Range WBC 8.1 4.0 - 9.5 x10(3)/mcL RBC 4.80 4.58 - 5.54 x10(6)/mcL Hemoglobin 15.0 13.7 - 16.5 g/dL Hematocrit 44.0 40.5 - 48.5 % MCV 91.7 82.9 - 93.1 fL MCH 31.3 27.5 - 32.1 pg MCHC 34.1 32.0 - 35.7 g/dL Platelets 153 145 - 357 x10(3)/mcL RDWSD 49.3 (H) 36.0 - 45.0 fL RDWCV 14.7 (H) 11.4 - 13.8 % MPV 10.0 7.6 - 12.9 fL nRBC % Auto 0.0 % nRBC Abs Auto 0.000 0.000 - 0.000 x10(3)/mcL Differential, Automated Result Value Ref Range Neutrophils % 51.2 % Neutr Abs (ANC) 4.15 1.70 - 6.10 x10(3)/mcL Lymphocytes % 39.5 % Lymphocytes Abs 3.2 0.9 - 3.2 x10(3)/mcL Monocytes % 6.8 % Monocyte Abs 0.6 0.3 - 0.9 x10(3)/mcL Eosinophils % 1.9 % Eosinophils Abs 0.2 0.0 - 0.4 x10(3)/mcL Basophils % 0.5 % Basophils Abs 0.0 0.0 - 0.1 x10(3)/mcL Immature Gran % 0.10 % Desi Gran Abs 0.01 0.00 - 0.04 x10(3)/mcL ABORH Recheck Status Result Value Ref Range ABORH Recheck Order Order Placed ABORH Type Recheck Complete Type and Screen Validity Result Value Ref Range T&S only valid at [facility] H[facility] L-Lactate2 Whole Blood Result Value Ref Range Lactate WB 1.2 0.5 - 2.2 mmol/L Basic Metabolic Panel (non-fasting) Result Value Ref Range Glucose Lvl 66 65 - 199 mg/dL BUN 19 10 - 20 mg/dL Creatinine 0.84 0.80 - 1.50 mg/dL Sodium 137 135 - 145 mmol/L Potassium 4.0 3.5 - 5.0 mmol/L Chloride 106 98 - 107 mmol/L CO2 19 (L) 22 - 31 mmol/L Anion Gap 12 5 - 15 mmol/L Calcium 8.1 (L) 8.5 - 10.5 mg/dL Estimated GFR 104 >=60 mL/min/1.73 m?? Magnesium Result Value Ref Range Magnesium 0.61 (L) 0.69 - 1.07 mmol/L Phosphorus Result Value Ref Range Phosphorus 2.5 2.5 - 4.5 mg/dL Heparin (unfractionated) Level Result Value Ref Range Heparin UFH Level 0.44 IU/mL Hemogram Result Value Ref Range WBC 6.6 4.0 - 9.5 x10(3)/mcL RBC 3.94 (L) 4.58 - 5.54 x10(6)/mcL Hemoglobin 12.3 (L) 13.7 - 16.5 g/dL Hematocrit 36.9 (L) 40.5 - 48.5 % MCV 93.7 (H) 82.9 - 93.1 fL MCH 31.2 27.5 - 32.1 pg MCHC 33.3 32.0 - 35.7 g/dL Platelets 129 (L) 145 - 357 x10(3)/mcL RDWSD 50.5 (H) 36.0 - 45.0 fL RDWCV 14.7 (H) 11.4 - 13.8 % MPV 10.1 7.6 - 12.9 fL nRBC % Auto 0.0 % nRBC Abs Auto 0.000 0.000 - 0.000 x10(3)/mcL Differential, Automated Result Value Ref Range Neutrophils % 51.1 % Neutr Abs (ANC) 3.39 1.70 - 6.10 x10(3)/mcL Lymphocytes % 40.1 % Lymphocytes Abs 2.7 0.9 - 3.2 x10(3)/mcL Monocytes % 6.3 % Monocyte Abs 0.4 0.3 - 0.9 x10(3)/mcL Eosinophils % 1.7 % Eosinophils Abs 0.1 0.0 - 0.4 x10(3)/mcL Basophils % 0.5 % Basophils Abs 0.0 0.0 - 0.1 x10(3)/mcL Immature Gran % 0.30 % Desi Gran Abs 0.02 0.00 - 0.04 x10(3)/mcL BLOOD GAS 2 ARTERIAL Result Value Ref Range pH Art 7.30 (L) 7.35 - 7.45 pCO2 Art 43 35 - 45 mmHg pO2 Art 125 (H) 85 - 104 mmHg HCO3 Art 20.8 20.0 - 26.0 mmol/L BE Art -5.6 (L) -3.0 - 3.0 mmol/L Hgb Blood Gas 14.6 13.7 - 16.5 g/dL O2HB Art 96.0 94.0 - 97.0 % COHB Art 2.0 % METHB Art 0.3 <=1.5 % Na Whole Blood 137 135 - 145 mmol/L K Whole Blood 3.7 3.5 - 5.0 mmol/L ICa Whole Blood 1.13 (L) 1.15 - 1.33 mmol/L CL Whole Blood 106 98 - 107 mmol/L Gluc Whole Bld 79 65 - 199 mg/dL Lactate WB 1.0 0.5 - 2.2 mmol/L BLOOD GAS 2 ARTERIAL Result Value Ref Range pH Art 7.29 (CRIT) 7.35 - 7.45 pCO2 Art 41 35 - 45 mmHg pO2 Art 80 (L) 85 - 104 mmHg HCO3 Art 19.4 (L) 20.0 - 26.0 mmol/L BE Art -7.6 (L) -3.0 - 3.0 mmol/L Hgb Blood Gas 15.1 13.7 - 16.5 g/dL O2HB Art 93.5 (L) 94.0 - 97.0 % COHB Art 2.4 % METHB Art 0.3 <=1.5 % Na Whole Blood 137 135 - 145 mmol/L K Whole Blood 3.8 3.5 - 5.0 mmol/L ICa Whole Blood 1.13 (L) 1.15 - 1.33 mmol/L CL Whole Blood 108 (H) 98 - 107 mmol/L Gluc Whole Bld 91 65 - 199 mg/dL Lactate WB 0.8 0.5 - 2.2 mmol/L Temp Art 35.3 Celsius BLOOD GAS 2 ARTERIAL Result Value Ref Range pH Art 7.37 7.35 - 7.45 pCO2 Art 35 35 - 45 mmHg pO2 Art 172 (H) 85 - 104 mmHg HCO3 Art 20.3 20.0 - 26.0 mmol/L BE Art -5.5 (L) -3.0 - 3.0 mmol/L Hgb Blood Gas 13.1 (L) 13.7 - 16.5 g/dL O2HB Art 97.3 (H) 94.0 - 97.0 % COHB Art 1.6 % METHB Art 0.3 <=1.5 % Na Whole Blood 135 135 - 145 mmol/L K Whole Blood 3.6 3.5 - 5.0 mmol/L ICa Whole Blood 1.19 1.15 - 1.33 mmol/L CL Whole Blood 106 98 - 107 mmol/L Gluc Whole Bld 113 65 - 199 mg/dL Lactate WB 1.1 0.5 - 2.2 mmol/L Temp Art 34.9 Celsius BLOOD GAS 2 ARTERIAL Result Value Ref Range pH Art 7.40 7.35 - 7.45 pCO2 Art 33 (L) 35 - 45 mmHg pO2 Art 142 (H) 85 - 104 mmHg HCO3 Art 20.1 20.0 - 26.0 mmol/L BE Art -5.3 (L) -3.0 - 3.0 mmol/L Hgb Blood Gas 14.0 13.7 - 16.5 g/dL O2HB Art 97.3 (H) 94.0 - 97.0 % COHB Art 1.6 % METHB Art 0.3 <=1.5 % Na Whole Blood 136 135 - 145 mmol/L K Whole Blood 4.0 3.5 - 5.0 mmol/L ICa Whole Blood 1.26 1.15 - 1.33 mmol/L CL Whole Blood 105 98 - 107 mmol/L Gluc Whole Bld 105 65 - 199 mg/dL Lactate WB 0.9 0.5 - 2.2 mmol/L FIO2 Art 80 % PF Ratio Art 178 Temp Art 34.7 Celsius Microbiology: Blood Cultures: None Urine Cultures: None Radiology: OSH CT reviewed. Assessment/Plan: Antelmo Marquez is a 56 y.o. male with pmhx of HTN, tobacco use, anxiety and occlusion of infrarenal aorta now s/p aortobifemoral bypass 07/25. Recovering well post-operatively. Will draw full set of labs and maintain q1hr neurovascular checks with blood pressure goals of 100-140 SBP. Did not received epidural due to heparin pre-op so will adjust pain regimen as needed. Neuro: - Pain control: acetaminophen, IV dilaudid - home meds: Clonazepam prn CV: S/p aortobifemoral bypass - Q1 hour neurovascular checks - vasopressors: None - SBP goal: 100-140 - Nicardipine gtt - Doppler able DP,PT bilaterally Pulm: - JENNIFER - CXR for central line placement FEN: LR @ 200 ml/hr; replete electrolytes prn GI: NPO give meds : villegas, monitor UOP Endo: JENNIFER ID: [email or web address] Heme: Heparin gtt PPx: - DVT: SCD's Disp: admit to ICU, Critical Care Red 1 Noam Rodriguez MD 07/25/2022 I saw and evaluated the patient with Dr. Rodriguez (resident). I have independently reviewed the relevant laboratory and radiographic studies. I have edited the above note and agree with the details as written. My physical examination confirms the resident's findings. The assessment and plan were formulated in discussion with me at the time of the visit and I agree with them as documented. Tigre Sandoval MD * Paul Reynolds MD - 07/24/2022 9:59 PM EDT [facility] Department of Vascular Surgery Admission History and Physical HPI: Antelmo Marquez is a 56 y.o. male with medical history significant for HTN, anxiety, 1PPD smokerwho presents from an OSH with several days of lower extremity paresthesias, pain, worsening motor function and CT showing aortic occlusion. The patient was seen at an OSH earlier today reporting 24-28 hours of paresthesias in bilateral lower extremities along with significant RLE pain inhibiting movement. CT at the outside hospital identified an aortic occlusion, the patient was started on a heparin drip and transferred to [facility] for further evaluation by vascular surgery. PMH of hypertension and anxiety. Currently smokes roughly 1PPD for estimated 15 years. No known history of heart attack or stroke. No prior surgeries. Denies history of DVT/PE, bleeding or clotting disorders, is not on anticoagulation. Confirms he takes clonazepam and sertraline daily for anxiety, he also takes several medications for HTN but is unsure which ones. On presentation the pt is hemodynamically normal. Outside hospital imaging reviewed, the pt was admitted for further workup and treatment. See assessment and plan below. PMH: No past medical history on file. PSH: No past surgical history on file. HOME MEDICATIONS: No current facility-administered medications on file prior to encounter. No current outpatient medications on file prior to encounter. ALLERGIES: No Known Allergies ROS: Negative except as indicated in HPI above. FAMILY HISTORY: non-contributory in any family member SOCIAL HISTORY: Social History Socioeconomic History ??? Marital status: Not on file Spouse name: Not on file ??? Number of children: Not on file ??? Years of education: Not on file ??? Highest education level: Not on file Occupational History ??? Not on file Tobacco Use ??? Smoking status: Not on file ??? Smokeless tobacco: Not on file Substance and Sexual Activity ??? Alcohol use: Not on file ??? Drug use: Not on file ??? Sexual activity: Not on file Other Topics Concern ??? Not on file Social History Narrative ??? Not on file Social Determinants of Health Financial Resource Strain: Not on file Food Insecurity: Not on file Transportation Needs: Not on file Physical Activity: Not on file Housing Stability: Not on file PHYSICAL EXAM Temp: [36.8 ??C (98.2 ??F)] Heart Rate: [54-58] Resp: [13-17] BP: (136)/(90-97) SpO2: [96 %] Heart Rate from SpO2: [58 bpm] No intake/output data recorded. General: Alert, no acute distress Head: Atraumatic, non cyanotic Cardiac: Regular rate Pulmonary: Normal respiratory effort Abdominal: Soft, non distended Neuro: Grossly intact, follows commands Extremities: Bilateral lower extremities cool, slightly pale. No palpable pulses, no doppler signals present in bilateral lower extremities. Bilateral femoral pulses are palpable. Pain with ROM of BLE. Is able to move toes and ankles (L > R) and lift both feet off of the bed LABORATORY DATA Recent Labs 07/24/222114 WBC 8.1 HGB 15.0 PLATELET 153 Recent Labs 07/24/222114 NA 139 K 3.9 CL 107 CO2 20* BUN 23* CREATININE 1.05 LFT's Lab Results Component Value Date Alk Phos 77 07/24/2022 AST 17 07/24/2022 Albumin 3.7 07/24/2022 Total Bilirubin 0.4 07/24/2022 ALT 13 07/24/2022 Total Protein 6.7 07/24/2022 Coags Lab Results Component Value Date INR 1.2 07/24/2022 PT 13.2 (H) 07/24/2022 PTT >160 (CRIT) 07/24/2022 MICRO: Microbiology Results (Last 30 days) No results found for the last 720 hours. IMAGING: OSH imaging uploaded to PACs IMPRESSION: Antelmo Marquez is a 56 y.o. male with medical history significant for HTN, anxiety, 1PPDsmoker who presents from an OSH with several days of lower extremity paresthesias, pain, worsening motor function and CT showing aortic occlusion. Will admit for close monitoring and continuation of therapeutic heparin drip. Vascular team to further discuss surgical options with the pt in the morning, pending clinical progress. PLAN: - Admit to vascular surgery, Dr. Dior attending - NPO - Continue heparin ggt, monitor UFH - Continue home sertraline & clonazepam - Consult to pharmacy in AM for med rec re: home antihypertensive regimen - IVF: LR 100cc/hr - Pain control: tylenol, prn oxy - DVT ppx: SCDs - Dispo: Stepdown status Paul Reynolds MD 07/24/2022 Vascular Surgery [id number] documented in this encounter ED Notes * Christiano Bah MD - 07/25/2022 12:00 PM EDT ED Resident Note HPI: Antelmo Marquez is a 56 y.o. male with a History of HTN, anxiety, 40 pk/yr history of smoking presents in transfer to the Emergency Department for pulseless lower extremities. Prior to arrival vascularsurgery was aware of Mr. Marquez and evaluated him at bedside on arrival. Mr. Marquez has had parsesthesias/numbness in his legs for the past two years, but over the past few days the numbness has rapidly progressed, and now with weakness in the bilateral lower extremities. He was found at an outside hospital to have infrarenal aortic occlusion with no distal pulses and thus was transferred to [facility] In the ED her reports significant pain in his bilateral lower extremities. He reports no significant chest pain, abdominal pain, fever, with no nausea, vomiting, or changes in urination. ROS as per HPI Vitals: ED Triage Vitals [07/24/222046] BP: 136/90 Heart Rate: 54 Resp: 13 Temp: 36.8 ??C (98.2 ??F) Temp src: Oral SpO2: 96 % O2 Device: RA O2 Flow Rate (L/min): n/a Physical Exam Constitutional: General: He is not in acute distress. Appearance: He is not toxic-appearing. Comments: Patient appears tired HENT: Head: Normocephalic. Cardiovascular: Rate and Rhythm: Normal rate and regular rhythm. Comments: Pulses not palpable in lower extremities, not dopplerable. Pulmonary: Effort: Pulmonary effort is normal. Breath sounds: Normal breath sounds. Abdominal: Palpations: Abdomen is soft. Tenderness: There is no abdominal tenderness. Musculoskeletal: Comments: Right and left lower extremities pale. Able to move right and left foot, but with decreased sensation bilaterally. Neurological: Mental Status: He is alert. Psychiatric: Mood and Affect: Mood normal. ED Course: I have reviewed labs and imaging, images and available reports, and they are significant for: Basic labs ordered but not resulted while in the ED. Therapeutic heparin was initiated and patient was admitted to vascular surgery. Assessment and Plan: 56 y.o. male with hx of HTN, anxiety, smoking presents in transfer with pulseless lower extremitieshowever still with motor function indicating sufficient collateral perfusion. With infrarenal aortic occlusion on outside imaging. Patient was admitted to vascular surgery for management. While in the ED pain was controlled with dilaudid. The visit findings, diagnosis, and care plan were discussed with the patient. Christiano Bah MD Resident 07/25/22 1216 Associated attestation - April Turner MD - 08/27/2022 1:08 AM EDT ED ATTENDING ATTESTATION NOTE The patient was seen in conjunction with the resident physician. I have independently performed thekey portions of the history and physical exam. I have reviewed the nursing notes, vital signs, and all diagnostic studies personally including labs, imaging studies and EKGs. I have discussed the details of the case with the resident and agree with the assessment and plan as described in the resident note below and amended by me as indicated. CRITICAL CARE DOCUMENTATION: Is there a high potential of sudden, clinically significant, or life threatening deterioration? Yes Are there life and/or organ supporting interventions that require frequent personal assessment and manipulation or support to treat/prevent vital organ failure/deterioration? yes I personally performed 20 minutes of aggregate critical care time exclusive of procedures and teaching during this emergency department visit. This includes time spent during direct patient evaluation and reassessment, interpreting diagnostic tests, directing life and/or organ supporting interventions, and documentation. * Chemo Vuong MD - 07/24/2022 3:27 PM EDT Pulseless foot. [facility] vascular on arrival Chemo Vuong MD 07/24/22 1528 Per Notes, Aortic Occlusion. [facility] vascular on arrival Chemo Vuong MD 07/24/22 1530 documented in this encounter Miscellaneous Notes * Care Management Discharge - Neisha Ahn RN - 08/02/2022 12:02 PM EDT CARE MANAGEMENT FINAL DISCHARGE NOTE Chart reviewed, care reviewed with primary team and at interdisciplinary rounds. Patient is medically ready for discharge to home with homecare and walker. Needs for Transition of Care: Plan for discharge is: Acute Rehab Outpatient Agency/Support Group Needs: None Agency Referrals & Follow-up Care: Contact information for follow-up Home Health & Hospice, [place] [address] [place] [address] Transportation: Family Functional status prior to admission: Independent Home Environment: Others in the home: alone. Current Living Arrangements: home/apartment/condo. Accessibility Concerns: . Current Functional Ability: Assistive Person and Equipment DME used at home: none DME Needed at Discharge: Walker Patient is insured through: Primary Insurance: [place] Pay[place] / Plan: [place] / Product Type: *No Product type* / Secondary Insurance: N/A Prescription Coverage: This plan was formulated with input from patient, and team. All are in agreement with plan. Neisha Ahn RN, BSN Case Management Work [phone] * Plan of Care - Dawn Branett RN - 08/02/2022 1:21 AM EDT OUTCOME EVALUATION NOTE: OUTCOME SUMMARY: Patient is A&)x4 VSS on RA. Patient ambulated around the unit. Patient is on heparin gtt and iscurrently therapeutic per 0000 draw. Patient is taking oxycodone 10mg prn for pain and scheduled medications. Patient is due to discharge today pending labs. PLAN MOVING FORWARD: Monitor VS & I&O Pain management Discharge planning INDIVIDUALIZED FALL PREVENTION INTERVENTIONS: Patient-specific fall risk factors per assessment: [current deficits]: tethers, narcotics, unfamiliar environment Assistance [level of assistance required for transfers and ambulation]: standby assist with walker Supervision [direct monitoring required during toileting and ADLs]: eyes on Surveillance [continuous indirect monitoring]: purposeful rounding, call pichardo within reach, room near nurses station Patient-specific fall prevention interventions for sensory deficits provided, if applicable: [X] N/A CARE PLAN GOAL OUTCOME EVALUATION: Problem: Bleeding (Revascularization) Goal: Absence of Bleeding Outcome: Ongoing (Interventions Implemented as Appropriate) Problem: Bowel Motility Impaired (Revascularization) Goal: Effective Bowel Elimination Outcome: Ongoing (Interventions Implemented as Appropriate) Problem: Infection (Revascularization) Goal: Absence of Infection Signs and Symptoms Outcome: Ongoing (Interventions Implemented as Appropriate) Problem: Pain (Revascularization) Goal: Acceptable Pain Control Outcome: Ongoing (Interventions Implemented as Appropriate) Problem: Tissue Perfusion Altered (Revascularization) Goal: Effective Tissue Perfusion Outcome: Ongoing (Interventions Implemented as Appropriate) * Care Management - Neisha Ahn RN - 07/31/2022 12:49 PM EDT OFFICE OF CARE MANAGEMENT PROGRESS NOTE LOS: Hospital Day 7 days Chart reviewed, care reviewed with primary team and at interdisciplinary rounds. Patient continues to meet inpatient level of care related to: Patient needs to work with PT/OT for reevaluation. Patient would like to go home with homecare and states he has someone available to stay with him 18/09. Patient requesting homecare set up. Decision Maker: Self Functional status prior to admission: Independent Home Environment: Others in the home: alone. Current Living Arrangements: home/apartment/condo. Accessibility Concerns: . Current Functional Ability: Assistive Person and Equipment DME used at home: none DME Needed at Discharge: No Patient is insured through: Primary Insurance: [place] / Plan[place] / Product Type: *No Product type* / Secondary Insurance: N/A Last Physical Therapy Recommendation: acute rehabilitation facility with to be determined Last Occupational Therapy Recommendation: acute rehabilitation facility with to be determined Plan for discharge is: Acute Rehab Outpatient Agency/Support Group Needs: None Agency Referrals: I have met with the patient to: ?? discuss discharge planning needs. ?? provide the [facility] Office of Care Management letter from the Child Care Specialist pertaining to rehabreferrals. ?? provide a letter describing our affiliations within the [facility] and educate about their right to choose where referrals are sent. ?? provide a list of Home Health Agencies / Durable Medical Equipment vendors which serve their preferred geographic area. ?? provided patient with [facility] Star Quality Rating handout. They have requested referrals to: [facility]. [address] [place] [id number] Note routed to a Religious Healer who will communicate referrals to facilities and provide any required information. Transportation: ambulance Barriers to discharge: Discharge planning Plan going forward: Patient to work with PT/OT to determine safe discharge plan. Care Management will continue to follow and assist with discharge planning and coordination of care as indicated. Anticipated Date of Discharge: 08/01/2022 Neisha Ahn RN, BSN Case Management Work [phone] * Plan of Care - Ifrah Hernandez RN - 07/31/2022 3:27 AM EDT OUTCOME EVALUATION NOTE: OUTCOME SUMMARY: Patient AOX4, VSS and palpable pulses in BLE. Patient states that he has some tingling in his BLE, but his legs feel much better than he did. Patient shared his journey over the last week and verbalized that he feels like he was panfilo that he got here and that the providers were able to save him. Patient feels certain that he will not smoke and is anxious to get up and moving a bit more tomorrow.Patient rested comfortably overnight. PLAN MOVING FORWARD: Neurovascular checks Q4 hours. Q4 hour VS OOB to chair & encourage ambulation PT & OT evaluations INDIVIDUALIZED FALL PREVENTION INTERVENTIONS: Patient-specific fall risk factors per assessment: [current deficits]: deconditioning, circulation Assistance [level of assistance required for transfers and ambulation]: 1-2 assistance with a walker Supervision [direct monitoring required during toileting and ADLs]: eyes on Surveillance [continuous indirect monitoring]: Leonides, purposeful rounding Patient-specific fall prevention interventions for sensory deficits provided, if applicable: NO CARE PLAN GOAL OUTCOME EVALUATION: Problem: Bleeding (Revascularization) Goal: Absence of Bleeding Outcome: Ongoing (Interventions Implemented as Appropriate) Problem: Bowel Motility Impaired (Revascularization) Goal: Effective Bowel Elimination Outcome: Ongoing (Interventions Implemented as Appropriate) Problem: Infection (Revascularization) Goal: Absence of Infection Signs and Symptoms Outcome: Ongoing (Interventions Implemented as Appropriate) Problem: Pain (Revascularization) Goal: Acceptable Pain Control Outcome: Ongoing (Interventions Implemented as Appropriate) Problem: Tissue Perfusion Altered (Revascularization) Goal: Effective Tissue Perfusion Outcome: Ongoing (Interventions Implemented as Appropriate) * Plan of Care - Marlen Li RN - 07/30/2022 6:32 PM EDT OUTCOME EVALUATION NOTE: OUTCOME SUMMARY: Transferred from PCU to step down level of care @ approximately around 1400 in stable condition. VSS on RA. A/Ox4. Denies SOB, CP, N/V, and n/t. Expressed feelings of anxiety gave, PRNs. Tolerating PO intake, clear liquid diet, takes pills whole. Pain managed well w/ current pain medication regimen, see eMAR for details. Groin sites CDI, Prevena WVx2 in placed bilat. Midline incision, EMERGENCY COMMUNICATIONS OFFICER, well approximated, closed w/ helga. Voiding AUOP in the urinal. +flatus and one episode of smearing. PIVs flushed for patency, sites benign. In bed resting w/ call pichardo in reach. PLAN MOVING FORWARD: Monitor VS & I/Os Pain management D/C planning INDIVIDUALIZED FALL PREVENTION INTERVENTIONS: Patient-specific fall risk factors per assessment: [current deficits]: Unfamiliar environment, tethering lines/drains, generalized weakness, mobility device, recent surgery/procedure, pain, narcotic medications Assistance [level of assistance required for transfers and ambulation]: 1-2 W/ walker Supervision [direct monitoring required during toileting and ADLs]: Arms reach Surveillance [continuous indirect monitoring]: Masimo, call pichardo, room near nurses station, purposeful rounding Patient-specific fall prevention interventions for sensory deficits provided, if applicable: N/A CARE PLAN GOAL OUTCOME EVALUATION: Ongoing * Plan of Care - Brooklynn Adhikari RN - 07/29/2022 3:57 PM EDT Assumed care of patient at 1530. Patient arrived from SICU with RN. VSS on arrival and BIBLIOGRAPHIC SERVICES SPECIALIST running.Pt oriented to new room. Villegas removed in ICU, Pt due to void at 1730. * Care Management - Connie Levin RN - 07/28/2022 9:56 AM EDT OFFICE OF CARE MANAGEMENT PROGRESS NOTE LOS: Hospital Day 4 days Chart reviewed, care reviewed with primary team and at interdisciplinary rounds. Patient continues to meet inpatient level of care related to: Patient continues with an NG tube in place at this time,team continues to work on pain control, and monitoring for ROBF. Decision Maker: Self Functional status prior to admission: Independent Home Environment: Others in the home: alone. Current Living Arrangements: home/apartment/condo. Accessibility Concerns: . Current Functional Ability: Assistive Person and Equipment DME used at home: none DME Needed at Discharge: No Patient is insured through: Primary Insurance: [place] / Plan[place] / Product Type: *No Product type* / Secondary Insurance: N/A Last Physical Therapy Recommendation: acute rehabilitation facility with to be determined Plan for discharge is: Acute Rehab Outpatient Agency/Support Group Needs: None Agency Referrals: Not Applicable - will place referrals closer to patient being medically ready for discharge. Transportation: ambulance Barriers to discharge: Discharge planning Plan going forward: Patient continues to wait for ROBF. Will place referrals closer to patient being medically ready for discharge. Care Management will continue to follow and assist with discharge planning and coordination of care as indicated. Anticipated Date of Discharge: 07/29/2022 Connie MONTGOMERY RN Phone: [phone] Pager: [phone] * Plan of Care - Hector Sorensen RN - 07/28/2022 6:52 AM EDT OUTCOME EVALUATION NOTE: OUTCOME SUMMARY: Pulses remained palpable, and skin warm. BP remained at desired parameter. Pt still with complaintsof pain at surgical sites, and Dilaudid BIBLIOGRAPHIC SERVICES SPECIALIST pump continues to be utilized by pt. PLAN MOVING FORWARD: OOB today with PT/OT, manage pain, control BP, continue neuro vascular checks INDIVIDUALIZED FALL PREVENTION INTERVENTIONS: Patient-specific fall risk factors per assessment: [current deficits]: Fall precautions Assistance [level of assistance required for transfers and ambulation]: Assist x2 Supervision [direct monitoring required during toileting and ADLs]: ICU Monitor * Consult Note - Shane Veras MD - 07/27/2022 7:50 PM EDTSummary: Cardiology Consult Note Inpatient Cardiology - Initial Consultation Patient Name: Antelmo Marquez Date of Consultation: 07/27/2022 Admit Date: 07/24/2022 Patient Location: [address] Referring: Marco Dior MD Attending Marriage Counselor Minister: Vito Gomez MD Reason for Consult: Aortic Occlusion, thrombus in HPI: Antelmo Marquez is a 56 y.o. male with medical history significant for HTN, anxiety, 1PPD smoker who presents from an OSH with several days of lower extremity paresthesias, pain, worsening motor function and CT showing aortic occlusion. He underwent aorto-bifemoral bypass with dacron grafts on 07/25. He unfortunately had an occluded left ABF limb on 07/26 and underwent a thrombectomy for this as wellas aortoiliac and SFA thrombectomy. Vascular medicine is consulted for evaluation of his thrombus burden. He reports that he has not had any issues with chest pain, palpitations, DVTs previously. He has smoked for >40 years. He currently notes that he is doing overall well. Review of Systems: A complete review of systems was completed and negative unless noted in the HPI. Past Medical History Patient Active Problem List Diagnosis ??? Aortic disorder Outpt Meds: No current facility-administered medications on file prior to encounter. No current outpatient medications on file prior to encounter. Inpatient Meds: Scheduled Meds: ??? acetaminophen 1,000 mg Intravenous Q6H DOM ??? BIBLIOGRAPHIC SERVICES SPECIALIST shift total and Settings verification Intravenous 2 Times Daily- BIBLIOGRAPHIC SERVICES SPECIALIST Shift Total ??? aspirin 300 mg Rectal Daily ??? sodium chloride 0.9 % (flush) 5 mL Intravenous BID ??? senna-docusate 2 tablet Oral BID ??? sertraline 25 mg Oral Daily Continuous Infusions: ??? lactated Ringers 100 mL/hr (07/27/22 1434) ??? HYDROmorphone ??? heparin (porcine) infusion 500 Units/hr (07/26/22 1716) PRN Meds:.hydrALAZINE, labetaloL, diphenhydrAMINE, prochlorperazine, ondansetron, naloxone, ipratropium-albuteroL, sodium chloride 0.9 % (flush), lidocaine, clonazePAM Allergies: No Known Allergies Family and Social Hx: No history of blood clots, heart disease. Social History Socioeconomic History ??? Marital status: Not on file Spouse name: Not on file ??? Number of children: Not on file ??? Years of education: Not on file ??? Highest education level: Not on file Occupational History ??? Not on file Tobacco Use ??? Smoking status: Never Passive exposure: Never ??? Smokeless tobacco: Never Vaping Use ??? Vaping Use: Never used Substance and Sexual Activity ??? Alcohol use: Not Currently ??? Drug use: Not Currently Comment: 'in the 80's' ??? Sexual activity: Not Currently Other Topics Concern ??? Not on file Social History Narrative ??? Not on file Social Determinants of Health Financial Resource Strain: Not on file Food Insecurity: Not on file Transportation Needs: Not on file Physical Activity: Not on file Housing Stability: Not on file Vitals: Last value Range last 24 hrs Temperature Temp: 37 ??C (98.6 ??F) Temp: [36.8 ??C (98.2 ??F)-37.6 ??C (99.7 ??F)] Heart Rate Heart Rate: 86 Heart Rate: [71-93] Blood Pressure BP: 151/83 BP: (122-151)/(71-83) Respiratory Rate Resp: 14 Resp: [13-18] SpO2 SpO2: 92 % SpO2: [89 %-98 %] I's and O's: Intake/Output Summary (Last 24 hours) at 07/27/20221950 Last data filed at 07/27/2022 1746 Gross per 24 hour Intake 5081 ml Output 5170 ml Net -89 ml Weights: Patient Vitals for the past 168 hrs: Weight 07/25/22 1530 89.7 kg (197 lb 12 oz) 07/24/22 2047 93 kg (205 lb) Examination: General: Pleasant, alert, appropriate, in NAD. Appears stated age. Neck: Supple with normal ROM. No obvious LAD. JVD ~ 6 cmH20 Cardiac: Normal S1 and S2, Regular rate and rhythm; No murmurs/gallops/rubs. Respiratory: Nonlabored. Clear to auscultation bilaterally; No wheezes/ rhonci/ rales. Abd: soft, non-tender, non-distended, no obvious masses. Ext: WWP without LE edema. DPP 2+ bilaterally. Neuro: II-XII grossly intact. Alert and oriented, no-focal deficits, sensation intact to crude touch Skin: No rashs, no lesions, no petechiae Psych: no pressured speech, normal affect Labs: CBC: Recent Labs 07/27/22 1800 07/27/22 0815 07/27/22 0526 WBC 9.2 10.2* 9.6* HGB 10.4* 11.2* 10.6* PLATELET 104* 96* 92* Chemistry: Recent Labs 07/27/22 1800 07/27/22 0815 07/27/22 0526 NA 138 138 139 K 3.8 4.0 4.3 CL 104 103 105 CO2 24 25 25 BUN 15 11 12 CREATININE 1.08 0.99 1.03 GLUCOSE 92 107 111 Recent Labs 07/27/22 1800 07/27/22 0815 07/27/22 0526 07/27/22 0037 CALCIUM 8.5 8.8 8.5 8.5 MAGNESIUM 0.81 0.82 -- 0.67* PHOS 3.4 2.3* -- 2.8 LFT's: Recent Labs 07/27/22 0526 07/27/227 07/26/221734 BILITOT 0.3 0.3 0.3 ALBUMIN 3.1* 3.1* 3.1* ALKPHOS 47 49 47 ALT 20 22 23 AST 44* 47* 45* Coags: Recent Labs 07/27/22 0526 07/27/22 0037 07/26/22 1735 07/26/22 1155 07/26/22 1030 07/25/22 21107/25/22 1520 07/24/222114 PT -- -- -- -- 13.3* -- 11.8 13.2* INR -- -- -- -- 1.2 -- 1.0 1.2 PTT 38* 34 35 34 35 < > 35 >160* FIBRINOGEN 575* 533* 486* 421* 438* < > 402* -- < > = values in this interval not displayed. Cardiac enzymes: Recent Labs 07/27/22 0526 07/27/22 0037 07/26/22 1735 CK 1,164* 1,266* 1,303* CTA LE 07/26: IMPRESSION * Occluded entire LEFT limb of the aorto-bifemoral bypass from just beyond the level of the bifurcation. * Oligemia of distal LEFT foot arteries. * Soft tissue inflammatory changes about the aorta at the level of the graft, likely postsurgical sequela; no active extravasation seen. * Moderately large portion of devascularization of the LEFT kidney anteriorly. * Small amount of perisplenic hemorrhage/hemoperitoneum. * Small to moderate volume pneumoperitoneum, likely postsurgical. * Partially imaged trace pleural effusions and moderate dependent atelectasis/consolidations. * Urinary bladder wall thickening; correlate for any concern of cystitis. Assessment: Antelmo Marquez is a 56 y.o. male With history of heavy smoking, hypertension and hyperlipidemia who presented with aortic occlusion s/p dacron graft aortobifemoral bypass with occlusion of the left aortifemoral limb. Overall this is consistent with disease due to smoking history, he does not have a s ignificant personal or family history which would point to a clotting disorder, and with his dacrongrafts has a 2A recommendation for anticoagulation regardless. Suspicion for APLA is low in his case given his significant smoking history and lack of family history or other findings. Recommendations: - Would initiate on eliquis when able with loading 10 mg BID for 7 days followed by 5 mg BID when ok for oral AC. - Continue ASA. - Continue heparin until transition to OAC. - No hypercoagulability work-up needed. - Start atorvastatin 40 mg daily. - Smoking cessation counseling recommended. - Can follow-up in the vascular medicine clinic with Dr. Carbone. Case was discussed with Dr. Gomez who agrees with recommendations as documented above. Consult service will continue to follow patient. x Recommendations are above, please page if further consultation required. Shane Veras MD 07/27/2022 7:51 PM Associated attestation - Vito Gomez MD - 07/28/2022 12:33 PM EDT I have seen the patient in person and reviewed Dr. Veras's above history and I agree with the detailsas written. The assessment and plan were formulated in discussion with me and I agree with them as documented. Mr. Marquez is a 56-year-old gentleman with history of hypertension, significant smoking who presented with acute on chronic limb ischemia in the setting of infrarenal aortic occlusion. He underwent extensive surgery with aortobifemoral bypass with dacron graft. Several days later, he was noted to have occlusion of left aortobifemoral limb. There is chronic appearing appearing thrombus in the left common femoral artery. This likely embolized proximal from aorta. It seems that the reason for occlusion of the limb was due to embolism from the aorta. This does not appear to be thrombosis in situ. Given that he also has a synthetic graft, I do think it is reasonable to initiate anticoagulation. Thus, I agree with a direct oral anticoagulant such as Eliquis, which can be continued long-term, to improve patency of the bypass graft. I do not think that hypercoag ulable work-up specifically, such as APLA, will be helpful in this case. We discussed the vast importance of smoking cessation. He should be on high intensity statin. LDL goal should be less than 40.He will follow in vascular medicine clinic with Dr. Carbone. Vito Gomez MD, MPH Cardiovascular Medicine * Initial Assessments - Arlene Black RN - 07/26/2022 12:55 PM EDT Office of Care Management Initial Assessment Arlene Black RN reviewed record and discussed patient with Care Team. Source of Information: Team, medical record, pts sister Lubna and pt. Introduced self/reviewed role; services accepted. Reason for Hospitalization: 'my legs being so numb I fall over' Covid Vaccination Status: 1st, 2nd & booster Last COVID test: Past medical History: No past medical history on file. Hospitalizations Within the Past 30 Days: no previous admission in last 30 days Current Decision-Making Capacity: Self If AD's have not been completed the following surrogate would be surrogate decision maker per [place] surrogate decision making law. (Only good for 180 days) Any patient receiving care in [place] must abide by [place] law. The hierarchy for surrogate decision making is: (a) Patient???s spouse or civil union partner unless there is a divorce proceeding, separation agreement, or restraining order limiting that person???s relationship with the patient. (b) Any adult son or daughter of the patient.pts SonAntelmo Jr would be DPOA (c) Either parent of the patient. (d) Any adult brother or sister of the patient. (e) Any adult grandchild of the patient. (f) Any grandparent of the patient. (g) Any adult aunt, uncle, niece, or nephew of the patient. (h) A close friend of the patient. (i) The agent with financial power of finance attorney or a conservator appointed in accordance with RSA 464-A. (j) The guardian of the patient???s estate. Advance Care Planning: Attempt Cardiopulmonary Resuscitation - Inpatient <no information> -Advanced Directive: No, need to discuss Current Coping/Education/Information Needs: unable to assess Current Functional Ability: 2 assist Functional Status Prior to Admission: Independent Prior ADLs & IADLs: Independent with all ADLs & IADLs Home Environment: Others in the home: alone. Current Living Arrangements: home/apartment/condo. Accessibility Concerns: . Resource / Environmental Concerns: Resource/Environmental Concerns: none Current DME: none Home Address confirmed as:Levi emailed to updated physical address. Below is correct address: [address] [place] [address] Social & Family Supports: All names listed below confirmed with patient as current and correct Pt has sister Lubna as EC as well as son Antelmo Current Care Provided by: self Provides Primary Care For: no one Caregiver if needed: child(kailyn), adult, friend(s), other relative(s) Quality of Family relationships: helpful, involved, supportive Community Resources being provided currently: none Behavioral Health History: unable to assess Substance Use/Abuse listed: Social History Tobacco Use Smoking Status Never ??? Passive exposure: Never Smokeless Tobacco Never 0 No problems reported 1-2 Low level 3-5 Moderate level 6-8 Substantial level 9- 10 Severe level 0 to 7 points: Low risk 8 to 15 points: Medium risk 16 to 19 points: High risk 20 to 40 points: Addiction likely Other Pertinent/Service Specific Information: none noted Health/Prescription Coverage: Pts sister reports that pt has [place] Medicaid. States that pts son has the cards and that she will try to contact him to bring pts insurance card [place] [facility] [place] Primary Insurance: [place] Medicaid- [id number] ( lvei emailed to update) Payor: / Secondary Insurance: N/A ; Prescription Coverage: yes Preferred Pharmacy: [facility] Status: Patient is a : No Primary Care Provider - PCP is April Ramirez at [facility]( levi emailed to update) Patient/Caregiver Goals of Treatment: per pts sister, pt would like to DC to home Potential Needs for Transition of Care: rehabilitation services Agency Referrals: Not Applicable at this time Transportation: no concerns Transportation Anticipated: ambulance, family or friend will provide Concerns to be Addressed: discharge planning Assessment: Patient is admitted to CC service for : status post Aortobifemoral bypass. Pts sisterLubna states that pt is on disability, has PCP, and has provided this RN with his updated address.She states that pt lives alone, has family/friends that live nearby, and that he was indep with [employer], just bought a new truck. States that he has [place] Medicaid, as she has helped him with the paperwork. She also reports that pt has a son, Antelmo Monroy And that he is planning to come to the hospital later today. Pts sister, lives 2 hours away in [place]. ?Plan: pending medical course/therapy evaluations A member of the Care Management team will continue to monitor progress, follow for continuity of care and assist with transition of care planning. Arlene Black RN CM, BSN, [facility] Ext [phone] * Op Note - Dayne Pedroza MD - 07/26/2022 8:05 AM EDT [facility] [place]ative Note Patient Name: Antelmo Marquez : [id number] MR#: [id number] Case Date: 07/26/2022 Surgeon: Surgeon(s) and Role: * Marco Dior MD - Primary * Dayne Pedroza MD - Resident * Rut Aguilera MD - Assisting attending Preoperative diagnosis: Occluded left ABF limb Postoperative diagnosis: Occluded left ABF limb Procedure(s) (LRB): THROMBECTOMY ARTERIAL,VENOUS GRAFT (NOT FOR HEMODIALYSIS GRAFT) WITH REVISION, LOWER EXTREMITY (WRVU 17.82) (Left) EMBOLECTOMY OR THROMBECTOMY, FEMOROPOPLITEAL, AORTOILIAC ARTERY BY LEG INCISION- LADAN (WRVU 19.48) (Left) 1. Thrombectomy/revision of occluded left aortobifemoral bypass limb 2. Aortoiliac thromboembolectomy 3. SFA thromboembolectomy (left) Findings: Left limb of aortobifemoral bypass noted to be occluded. We took down the anastomosis andnoted chronic appearing thromboembolic disease lodged in left common femoral artery, likely embolized proximally from aorta. Left aortoiliac and SFA thromboembolectomy performed with 4Fr and 5Fr sergo embolectomy catheters. Pulsatile inflow from left ABF limb and brisk backbleeding from SFA and profunda branches. Palpable left DP pulse at end of case. Anesthesia: General Estimated Blood Loss: 250 mL Fluids: 1000 mL Heparin: 8000 units Protamine: 40 mg Urine: 1300 mL Specimens removed during surgery: None Drains: none Surgical Closure: Primary Closure - skin incision is completely closed without any wires, angie, drains or other devices Disposition: awakened from anesthesia, extubated, and returned to ICU for continued resuscitation Condition: stable (Please see the Surgical Encounter Summary for any Implant and Specimen details pertinent to this patient.) HPI/Surgical Indications: Antelmo Marquez is a 56 y.o. male with medical history significant for HTN,anxiety, 1PPD smoker??who presents from an OSH??with several days of lower extremity paresthesias, pain, worsening motor function??and CT showing aortic occlusion. He is POD 1 s/p ABF, now with occlusion of left ABF limb. Plan for OR today for exploration Procedure Description: After informed consent was obtained the patient was brought back to the operating room and placed supine on the OR table. General anesthesia was induced and the patient was intubated with an ETT. Additional support lines (villegas, arterial line, PIVs) were already in place. The patient's abdomen and bilateral lower extremities were prepped and draped in the usual sterile fashion. Preoperative antibiotics were given. A timeout was performed. Attention was then turned to the patient's left groin. The prior incision was re-opened sharply with a scalpel and metzenbaum scissors. We re-opened the femoral sheath. We identified the left limb of the aortobifemoral bypass limb, which appeared occluded.We obtained control of and looped the proximal common femoral artery, SFA, two profunda arteries. Systemic heparin was administered and the arteries were clamped. The left limb of the ABF was disconnected from the left common femoral artery as the anastomosis was taken down. We noted chronic-appearing embolic debris ledged in the common femoral artery, which likely had embolized proximally from the aorta. We performed thromboembolectomy of the left SFA with a 4Fr sergo embolectomy catheter with clean passes. The profunda branches were back bled. There was brisk backbleeding from the SFA andprofunda branches. The onond[place] left iliac vessel was embolectomized with a 4Fr sergo catheter with resultant mild inflow. Next, while compressing the right ABF limb, thromboembolectomy of the left ABF limb was performed with a 5Fr sergo embolectomy catheter with some chronic appearing thrombus followed by more acute thrombus, followed by brisk, pulsatile inflow. The vessels were clamped. The ar teriotomy was irrigated. There did not appear to be a dissection or other technical defect present.We re-anastomosed the left ABF limb to the common femoral artery over the origin of the profunda with 5-0 prolene suture in a running fashion. The clamps were removed and hemostasis was satisfactory.There was a palpable pulse in the bypass graft and a palpable left DP pulse. The wound was irrigated and hemostasis was obtained. The wound was closed in layers of 2-0 and 3-0 vicryl sutures for the deeper layers. The skin was closed with 4-0 monocryl. A prevena incisional wound vac was applied. The patient was extubated and taken to the ICU having suffered no apparent untoward event. Dr Dior was present and scrubbed for the case. Surgical Infection Prevention Bundle Used? N/A Associated attestation - Marco Dior MD - 07/28/2022 1:38 PM EDT Attestation: Case Date: 07/26/2022 I was present and I participated during the entire procedure (does not need to include opening and closing). Marco Dior MD 07/28/2022 * Op Note - Rut Aguilera MD - 07/25/2022 9:30 AM EDT [facility] [place] Patient Name: Antelmo Marquez : [id number] MR#: [id number] Case Date: 07/25/2022 Surgeon: Surgeon(s) and Role: * Rut Aguilera MD - Primary * Dayne Pedroza MD * Marco Dior MD * Cathy Leger MD Preoperative diagnosis: Aortic occlusion Postoperative diagnosis: Same Procedures: Aortobifemoral bypass Modifier 80 - due to the challenging and urgent nature of the case, the need for a supraceliac clamp, and extensive aortic endarterectomy, Dr. Dior provided assistance in the performance of the operation Findings: Midline abdominal incision. Supraceliac clamp time 7 minutes, infrarenal for 20 minutes, leg clamp time 1 hr 20-23 min each leg. Mannitol administered. 14x7mm dacron graft to bilateral BAND MASTER extending onto profunda arteries. End to end proximal anastomosis, end to side distal anastomoses. No BAND MASTER endarterectomies performed. DP PT signals b/l at completion of procedure. Compartments soft atcompletion. Anesthesia: General Estimated Blood Loss: 646 mL Heparin: 9,000 units Protamine: 50 mg UOP: 1650 cc IVF: 4900 cc Specimens removed during surgery: None Drains: n/a Surgical Closure: Primary Closure - skin incision is completely closed without any wires, angie, drains or other devices Disposition: extubated in the OR and taken directly to the ICU in a stable, but guarded condition. Condition: doing well without problems (Please see the Surgical Encounter Summary for any Implant and Specimen details pertinent to this patient.) HPI/Surgical Indications: Antelmo Marquez is a 56 y.o. male with medical history significant for HTN, anxiety, 1PPD smoker who presents from an OSH with 48-72 hours of bilateral lower extremity paresthesias and pain and CT showing aortic occlusion. He presents for aortobifemoral bypass. Procedure Description: After informed consent was obtained the patient was brought back to the operating room and placed supine on the OR table. General anesthesia was induced and the patient was intubated with an ETT. Additional support lines (villegas, arterial line, PIVs, central line) were placed. Preoperative ceftriaxone was administered. A timeout was performed. Attention was then turned to the patient's bilateral groins where vertical incisions were made overlying the bilateral common femoral arteries. Electrocautery was used to dissect through the subcutaneous tissues to the femoral sheath. The left and right external iliac arteries, circumflex arteries, common femoral arteries, profundas and superficial femoral arteries were each identified, circumferentially dissected and encircled with vessel loops. Allcrossing veins were doubly ligated and divided. Next, with blunt dissection, the retroperitoneal tunnels were created. Next, we turned our attention to the patient's abdomen. A midline incision was made from the xiphoid to the pubis. The subcutaneous tissues were divided with cautery. The linea alba was incised. The peritoneum was elevated and entered sharply. The abdomen was explored. There was no gross pathology noted.??The NGT was palpated in the stomach and the stomach was decompressed. Thetransverse colon was brought cephalad and the small bowel was eviscerated to the patient's right lower quadrant. The ligament of Treitz was divided sharply and the duodenum was mobilized towards the patient's right. The left renal vein was identified. The retroperitoneum was then incised caudad to allow mobilization of the small bowel to the right. The omni retractor was placed for exposure at this time. Dissection continued through the retroperitoneal fat overlying the aorta. We exposed the left and right renal arteries deep to the renal vein. We exposed the aorta to the level of the aortic bifurcation. We looped each renal artery with a vessel loop for control. We then exposed the supraceliac aorta. The triangular ligaments of the left lobe of the liver were transected with electrocautery. The NGT was palpated at the level of the diaphragm and the NGT, and therefore esophagus, was retracted to the patient's left. The aorta was palpated and the gastrohepatic ligament was opened overlying the aorta. The lazaro was incised with ligasure. The supraceliac aorta was exposed and dissected free from surrounding tissue along the sides until the spine was palpated. This was found to be freeof disease and an excellent clamp site. Once we were satisfied with the dissection of the infrarenal aorta and the proximal clamp sites, we created our retroperitoneal tunnels to the common femoral arteries from the midline incision. We maintained the retroperitoneal tunnels with umbilical tape. Weadministered systemic heparin and redosed throughout the procedure for a goal ACT of 300. The aortawas clamped in the supraceliac position. ??The aorta was transected with a bevel ensuring a sewing ring distal to the renal arteries. The aortic thrombus was removed proximally. Once we had an excellent sewing ring, the infrarenal aorta was clamped and the supraceliac clamp was removed. The renal arteries had an excellent doppler signal bilaterally. The proximal end of the Dacron graft (14mm x 7mm) was also beveled to length. The proximal anastomosis was then performed in an end-to-end fashion with running 3-0 prolene. Once the proximal anastomosis was complete the anastomosis was tested. It was hemostatic. The aortic cross clamp was removed and replaced on the graft limbs. We aggressively flushed the aorta to flush free any residual mobile thrombus. Each limb of the graft was flushed sequentially. The limbs were passed through the previously made tunnels to each groin, ensuring not to twist or kink the graft. Following this we performed bilateral end-to-side anastomosis between the graft limbs and each common femoral artery extending down to the origin of the profunda. To do this,??the proximal BAND MASTER, superficial femoral, circumflex and profunda arteries were clamped. A longitudinal arteriotomy was made along the anterior surface of the common femoral artery, which did have some posterior atherosclerotic disease on each side. Brisk backbleeding was noted from the profunda artery and the superficial femoral artery bilaterally. The hoods of the bypass grafts were distal to mostof the atherosclerosis, and therefore no endarterectomies were performed. The limbs were again allow to flush antegrade to remove any thrombus or other material. The Dacron limb was then sewn to the a rtery in a running fashion with 5-0 prolene. Prior to completion of the anastomosis, all arteries were flushed. The anastomosis was completed and all clamps were removed. The patient tolerated reperfusion of the left??leg well. Next, the right??anastomosis was performed in a similar fashion. Brisk b ackbleeding was noted from the profunda artery and the superficial femoral artery on this side as well. Upon completion of the anastomosis, we opened the right??limb of the graft. The patient also tolerated this well. At this time the patient had excellent triphasic signals in the profunda and SFA bilaterally. Protamine was administered. Thrombin-soaked gelfoam was then applied to the groin anastomoses and our attention was returned to the abdomen. Hemostasis was obtained with electrocautery, surgiflo and evarrest. The distal aorta was oversewed with 3-0 prolene in a running fashion. Once we were satisfied with hemostasis, the retroperitoneum was closed over the repair with 2-0 monocryl. The bowel was then inspected, noted to be healthy and viable. It was replaced in anatomic position. Next, the fascia was closed with running 0-PDS. The skin was closed with helga. The groins were theneach closed in multiple layers of 2-0 and 3-0 vicryls followed by 4-0??Monocryl subcuticular on theskin. Bilateral prevena wound vacs were placed on the groins. The midline incision was dressed withprimapore. The patient had bilateral DP PT signals at completion of the procedure. The patient was awoken, extubated and taken to PACU in stable condition. All counts were correct. Dr. Aguilera was present and scrubbed for the entirety of the procedure. Surgical Infection Prevention Bundle Used? No Vascular Surgery Attending Staff Attestation: Case Date: 07/25/2022 I was present and I participated during the entire procedure (does not need to include opening and closing). Rut Aguilera MD 07/27/2022 * Plan of Vern - Shaye Jimenez RN - 07/25/2022 5:34 AM EDT OUTCOME SUMMARY: Pt arrived via stretcher from ED @ 2215. Pt A&Ox4, able to make needs known, uses call pichardo appropriately, appropriate and jovial with staff. VSS noted desat to 87% on RA with rest. 2L via NC applied for O2 95%. HR 45-50's at rest. Afebrile.No c/o nausea. Pain intermittently controlled per pt. Sleeping well between cares. Pt no void, stated 'hard to go with a pretty girl here'. Attempted in bathroom. No void since priorto ED per pt. MD's aware state will put villegas in during case during AM rounds. Neurovascular checks unchanged see flowsheets. Call pichardo in reach, verbalized understanding of POC, Will continue with the current plan of care and update as indicated. Patient Vitals for the past 8 hrs: BP Temp Temp src Pulse Resp SpO2 07/25/22 0600 135/87 36.8 ??C (98.2 ??F) Oral (!) 48 16 97 % 07/25/22 0400 128/89 36.4 ??C (97.5 ??F) Axillary 54 13 92 % 07/25/22 0200 (!) 143/100 -- -- (!) 49 12 95 % 07/25/22 0000 126/83 36.8 ??C (98.2 ??F) Oral (!) 49 12 93 % PLAN MOVING FORWARD: Encourage independence. Neurovascular status Q2 Heparin gtt Bleeding precautions NPO for bypass graft 07/25/2022 Maintain pain control. INDIVIDUALIZED FALL PREVENTION INTERVENTIONS: Patient-specific fall risk factors per assessment: [current deficits]: Tethering of lines, Narcotics, new environment, hx of falling, increased pain with ambulation, unsteady gait Assistance [level of assistance required for transfers and ambulation]: Independent with bed mobility, able to slide without assistance. Supervision [direct monitoring required during toileting and ADLs]: Hands on Surveillance [continuous indirect monitoring]: Room near nurses station Bed alarm purposeful rounding call pichardo in reach Patient-specific fall prevention interventions for sensory deficits provided, if applicable: [X] Yes, environmental modifications, lights adjusted to task, non- skid socks CPG GOAL OUTCOME EVALUATION: Ongoing * ED Triage - Cindy Gomez RN - 07/24/2022 8:49 PM EDT Heparin drip started at OSH at 1530 HPI (Adult) Stated Reason for Visit: pt arrives via EMS as hospital transfer from [facility]. Aortic occlusion. 3 days intermittent pain, ladan leg paresthesia documented in this encounter Plan of Treatment Scheduled Referrals Name Type Priority Associated Diagnoses Orde r Schedule Referral to Home Health Outpatient Referral Routine Aortic disorder Ordered: 08/02/2022 documented as of this encounter Procedures Procedure Name Priority Date/Time Associated Diagnosis Comments HEPARIN (UNFRACTIONATED) LEVEL Timed 08/02/2022 5:02 AM EDT HEMOGRAM Routine 08/02/2022 5:02 AM EDT DIFFERENTIAL, AUTOMATED Routine 08/03/19 5:02 AM EDT CBC (WITH DIFF) Routine 08/02/2022 5:02 AM EDT PHOSPHORUS Routine 08/02/2022 5:02 AM EDT MAGNESIUM Routine 08/02/2022 5:02 AM EDT BASIC METABOLIC PANEL Routine 08/02/2022 5:02 AM EDT HEPARIN (UNFRACTIONATED) LEVEL Timed 08/02/2022 12:12 AM EDT HEPARIN (UNFRACTIONATED) LEVEL Timed 08/01/2022 5:00 PM EDT BASIC METABOLIC PANEL STAT 08/01/2022 2:09 PM EDT HEPARIN (UNFRACTIONATED) LEVEL Timed 08/01/2022 9:58 AM EDT HEPARIN (UNFRACTIONATED) LEVEL Timed 08/01/2022 2:44 AM EDT HEMOGRAM Routine 08/01/2022 2:44 AM EDT DIFFERENTIAL, AUTOMATED Routine 08/02/19 2:44 AM EDT CBC (WITH DIFF) Routine 08/01/2022 2:44 AM EDT PHOSPHORUS Routine 08/01/2022 2:44 AM EDT MAGNESIUM Routine 08/01/2022 2:44 AM EDT BASIC METABOLIC PANEL Routine 08/01/2022 2:44 AM EDT URINALYSIS MICROSCOPIC EXAM Routine 07/31/2022 6:50 PM EDT URINE HOLD Routine 07/31/2022 6:50 PM EDT URINALYSIS WITH REFLEX CULTURE Routine 07/31/2022 6:50 PM EDT HEPARIN (UNFRACTIONATED) LEVEL Timed 07/31/2022 6:17 PM EDT HEMOGRAM Routine 07/31/2022 5:50 AM EDT DIFFERENTIAL, AUTOMATED Routine 08/01/19 5:50 AM EDT CBC (WITH DIFF) Routine 07/31/2022 5:50 AM EDT PHOSPHORUS Routine 07/31/2022 5:50 AM EDT MAGNESIUM Routine 07/31/2022 5:50 AM EDT BASIC METABOLIC PANEL Routine 07/31/2022 5:50 AM EDT HEMOGRAM Routine 07/30/2022 4:05 AM EDT DIFFERENTIAL, AUTOMATED Routine 07/31/19 4:05 AM EDT CBC (WITH DIFF) Routine 07/30/2022 4:05 AM EDT PHOSPHORUS Routine 07/30/2022 4:05 AM EDT MAGNESIUM Routine 07/30/2022 4:05 AM EDT BASIC METABOLIC PANEL Routine 07/30/2022 4:05 AM EDT BASIC METABOLIC PANEL STAT 07/29/2022 1:40 PM EDT HEMOGRAM Routine 07/29/2022 1:32 AM EDT DIFFERENTIAL, AUTOMATED Routine 07/30/19 1:32 AM EDT CBC (WITH DIFF) Routine 07/29/2022 1:32 AM EDT PHOSPHORUS Routine 07/29/2022 1:32 AM EDT MAGNESIUM Routine 07/29/2022 1:32 AM EDT BASIC METABOLIC PANEL Routine 07/29/2022 1:32 AM EDT HEMOGRAM Routine 07/28/2022 4:43 AM EDT DIFFERENTIAL, AUTOMATED Routine 07/29/19 4:43 AM EDT CBC (WITH DIFF) Routine 07/28/2022 4:43 AM EDT BASIC METABOLIC PANEL Routine 07/28/2022 4:43 AM EDT HEMOGRAM Routine 07/27/2022 6:00 PM EDT DIFFERENTIAL, AUTOMATED Routine 07/28/19 6:00 PM EDT CBC (WITH DIFF) Routine 07/27/2022 6:00 PM EDT PHOSPHORUS Routine 07/27/2022 6:00 PM EDT MAGNESIUM Routine 07/27/2022 6:00 PM EDT BASIC METABOLIC PANEL Routine 07/27/2022 6:00 PM EDT HEMOGRAM Routine 07/27/2022 8:15 AM EDT DIFFERENTIAL, AUTOMATED Routine 07/28/19 8:15 AM EDT CBC (WITH DIFF) Routine 07/27/2022 8:15 AM EDT PHOSPHORUS Routine 07/27/2022 8:15 AM EDT MAGNESIUM Routine 07/27/2022 8:15 AM EDT BASIC METABOLIC PANEL Routine 07/27/2022 8:15 AM EDT HEMOGRAM Routine 07/27/2022 5:26 AM EDT DIFFERENTIAL, AUTOMATED Routine 07/28/19 5:26 AM EDT HC PARTIAL THROMBOPLASTIN TIME Routine 07/27/2022 5:26 AM EDT FIBRINOGEN Routine 07/27/2022 5:26 AM EDT CBC (WITH DIFF) Routine 07/27/2022 5:26 AM EDT CK Routine 07/27/2022 5:26 AM EDT COMPREHENSIVE METABOLIC PANEL Routine 07/27/2022 5:26 AM EDT HEMOGRAM Routine 07/27/2022 12:37 AM EDT DIFFERENTIAL, AUTOMATED Routine 07/28/19 12:37 AM EDT HC PARTIAL THROMBOPLASTIN TIME Routine 07/27/2022 12:37 AM EDT FIBRINOGEN Routine 07/27/2022 12:37 AM EDT CBC (WITH DIFF) Routine 07/27/2022 12:37 AM EDT PHOSPHORUS Routine 07/27/2022 12:37 AM EDT MAGNESIUM Routine 07/27/2022 12:37 AM EDT CK Routine 07/27/2022 12:37 AM EDT COMPREHENSIVE METABOLIC PANEL Routine 07/27/2022 12:37 AM EDT HEMOGRAM Routine 07/26/2022 5:35 PM EDT DIFFERENTIAL, AUTOMATED Routine 07/27/19 5:35 PM EDT GOLD TUBE HOLD Routine 07/26/2022 5:35 PM EDT HC PARTIAL THROMBOPLASTIN TIME Routine 07/26/2022 5:35 PM EDT FIBRINOGEN Routine 07/26/2022 5:35 PM EDT CBC (WITH DIFF) Routine 07/26/2022 5:35 PM EDT CK Routine 07/26/2022 5:35 PM EDT COMPREHENSIVE METABOLIC PANEL Routine 07/26/2022 5:35 PM EDT HEMOGRAM Routine 07/26/2022 11:55 AM EDT DIFFERENTIAL, AUTOMATED Routine 07/27/19 11:55 AM EDT GOLD TUBE HOLD Routine 07/26/2022 11:55 AM EDT HC PARTIAL THROMBOPLASTIN TIME Routine 07/26/2022 11:55 AM EDT FIBRINOGEN Routine 07/26/2022 11:55 AM EDT CBC (WITH DIFF) Routine 07/26/2022 11:55 AM EDT CK Routine 07/26/2022 11:55 AM EDT COMPREHENSIVE METABOLIC PANEL Routine 07/26/2022 11:55 AM EDT HEMOGRAM STAT 07/26/2022 10:30 AM EDT DIFFERENTIAL, AUTOMATED STAT 07/27/19 10:30 AM EDT HC PARTIAL THROMBOPLASTIN TIME Routine 07/26/2022 10:30 AM EDT PROTHROMBIN TIME Routine 07/26/2022 10:3 0 AM EDT FIBRINOGEN Routine 07/26/2022 10:30 AM EDT CBC (WITH DIFF) STAT 07/26/2022 10:30 AM EDT CK Routine 07/26/2022 10:30 AM EDT COMPREHENSIVE METABOLIC PANEL Routine 07/26/2022 10:30 AM EDT BLOOD GAS ARTERIAL POC Routine 10:29 AM EDT EMBOLECTOMY\THROMBECTOM Y,LADAN., FEM-POP, AORTOILIAC ARTERY Routine 07/26/2022 8:44 AM EDT BLOOD GAS ARTERIAL POC Routine 8:[address] ANGIOGRAM AORTA LOWER EXTREMITY RUNOFF STAT 07/26/2022 7:36 AM EDT Emblc/Thrmbc Femoral Popliteal Aorto-Iliac Artery (18220) 07/26/2022 7:20 AM EDT concern for occluded L ABF limb Removal Of Clot In Graft (60986) 07/26/2022 7:20 AM EDT concern for occluded L ABF limb THROMBECTOMY ART,JOAO GRAFT (NOT HEMODIAL GRAFT) WITH REVISION L/E Routine 07/26/2022 7:16 AM EDT BLOOD GAS ARTERIAL POC Routine 4:10 AM EDT HEMOGRAM Routine 07/26/2022 2:10 AM EDT DIFFERENTIAL, AUTOMATED Routine 07/27/19 2:10 AM EDT HC PARTIAL THROMBOPLASTIN TIME Routine 07/26/2022 2:10 AM EDT FIBRINOGEN Routine 07/26/2022 2:10 AM EDT CBC (WITH DIFF) Routine 07/26/2022 2:10 AM EDT MAGNESIUM Routine 07/26/2022 2:10 AM EDT CK Routine 07/26/2022 2:10 AM EDT COMPREHENSIVE METABOLIC PANEL Routine 07/26/2022 2:10 AM EDT ELECTROLYTES PANEL Routine 07/26/2022 2: 10 AM EDT BLOOD GAS ARTERIAL POC Routine 2:08 AM EDT BLOOD GAS ARTERIAL POC Routine 10:44 PM EDT HEMOGRAM Routine 07/25/2022 9:10 PM EDT DIFFERENTIAL, AUTOMATED Routine 07/26/19 9:10 PM EDT HC PARTIAL THROMBOPLASTIN TIME Routine 07/25/2022 9:10 PM EDT FIBRINOGEN Routine 07/25/2022 9:10 PM EDT CBC (WITH DIFF) Routine 07/25/2022 9:10 PM EDT PHOSPHORUS Routine 07/25/2022 9:10 PM EDT CK Routine 07/25/2022 9:10 PM EDT COMPREHENSIVE METABOLIC PANEL Routine 07/25/2022 9:10 PM EDT BLOOD GAS ARTERIAL POC Routine 9:09 PM EDT BLOOD GAS ARTERIAL POC Routine 05/30/202 3 5:42 PM EDT XR CHEST ONE VIEW Routine 07/25/2022 3:5 3 PM EDT BLOOD GAS ARTERIAL POC Routine 3 3:42 PM EDT HEMOGRAM Routine 07/25/2022 3:20 PM EDT DIFFERENTIAL, AUTOMATED Routine 07/26/19 3:20 PM EDT HC PARTIAL THROMBOPLASTIN TIME Routine 07/25/2022 3:20 PM EDT PROTHROMBIN TIME Routine 07/25/2022 3:20 PM EDT FIBRINOGEN Routine 07/25/2022 3:20 PM EDT CBC (WITH DIFF) Routine 07/25/2022 3:20 PM EDT CK Routine 07/25/2022 3:20 PM EDT COMPREHENSIVE METABOLIC PANEL Routine 07/25/2022 3:20 PM EDT BLOOD GAS ARTERIAL POC Routine 3 1:34 PM EDT BLOOD GAS ARTERIAL POC Routine 3 12:30 PM EDT BLOOD GAS ARTERIAL POC Routine 3 11:42 AM EDT BLOOD GAS ARTERIAL POC Routine 3 10:40 AM EDT BLOOD GAS ARTERIAL POC Routine 3 9:34 AM EDT Bypass Graft Othr, Aortobifemoral ([id number]) 07/25/2022 7:50 AM EDT Aortic occlusion BYPASS GRAFT, AORTOBIFEMORAL W\ SYNTHETIC CONDUIT Routine 07/25/2022 6:20 AM EDT HEPARIN (UNFRACTIONATED) LEVEL Timed 07/25/2022 4:21 AM EDT HEMOGRAM Routine 07/25/2022 4:21 AM EDT DIFFERENTIAL, AUTOMATED Routine 07/26/19 4:21 AM EDT CBC (WITH DIFF) Routine 07/25/2022 4:21 AM EDT PHOSPHORUS Routine 07/25/2022 4:21 AM EDT MAGNESIUM Routine 07/25/2022 4:21 AM EDT BASIC METABOLIC PANEL Routine 07/25/2022 4:21 AM EDT IMPLANTABLE DEVICES SCAN 07/25/2022 12:00 AM EDT L-LACTATE2 WHOLE BLOOD Routine 9:48 PM EDT TYPE AND SCREEN VALIDITY STAT 07/24/2022 9:15 PM EDT ABORH RECHECK STATUS STAT 07/24/2022 9:15 PM EDT HEPARIN (UNFRACTIONATED) LEVEL STAT 07/24/2022 9:15 PM EDT HEMOGRAM STAT 07/24/2022 9:15 PM EDT DIFFERENTIAL, AUTOMATED STAT 07/25/19 9:15 PM EDT ABO/RH TYPING STAT 07/24/2022 9:15 PM EDT HC PARTIAL THROMBOPLASTIN TIME STAT 07/24/2022 9:15 PM EDT PROTHROMBIN TIME STAT 07/24/2022 9:15 PM EDT CBC (WITH DIFF) STAT 07/24/2022 9:15 PM EDT ANTIBODY SCREEN STAT 07/24/2022 9:15 PM EDT TYPE AND SCREEN [place] [place] STAT 07/24/2022 9:15 PM EDT COMPREHENSIVE METABOLIC PANEL STAT 07/24/2022 9:15 PM EDT documented in this encounter Results * CT [...] who have questions please contact the health daycare teacher that requested your imaging first. ? Electronically signed by: Deandre Machado MD, [facility] ([phone]), at 09/06/2022 3:49 PM Narrative 09/06/2022 3:49 [...] administration of contrast. Administered 74.0 ml of [id number] mg/ml. Maximum intensity projection (MIP) were reformatted. [...] patients who have questions please contactthe health daycare teacher that requested your imaging first. Electronically signed by: Deandre Machado MD, [facility]([phone]), at 09/06/2022 3:49 PM Marco Dior MD IM CT ORDERABLES * (ABNORMAL) Differential, Automated (08/02/2022 5:02 AM EDT) Neutrophil % 55.9 % [facility] Neutrophil Absolute 4.31 1.70 - 6.10 x10(3)/mc L [facility] Lymph % 31.3 % [facility] Lymphocytes Abs 2.4 0.9 - 3.2 x10(3)/mc L [facility] Monocyte % 9.4 % [facility] Monocyte Abs 0.7 0.3 - 0.9 x10(3)/mc L [facility] Eos % 1.8 % [facility] Eosinophils Abs 0.1 0.0 - 0.4 x10(3)/ L [facility] Basophil % 0.4 % [facility] Baso Absolute 0.0 0.0 - 0.1 x10(3)/mc L [facility] Immature Gran % 1.20 % [facility] Comment: Immature granulocytes(IG's)percentage and absolute count will include metamyelocytes, myelocytes, and promyelocytes. Blood smears from CBCs yielding IG's will be scanned manually for concordance. If this scan disagrees with the automated IG or if promyelocytes are noted, a manual differential will be performed. Immature Gran Absolute 0.09(H) 0.00 - 0.04 x10(3)/ L [facility] Blood 08/02/2022 5:02 AM EDT 08/02/2022 5:43 AM EDT Narrative Resulting Agency Comment Spec In Lab Alaina Avalos MD HEMATOLOGY ORDERABL ES [facility] [address] * (ABNORMAL) Hemogram (08/02/2022 5:02 AM EDT) White Blood Cell 7.7 4.0 - 9.5 x10(3)/mc L [facility] Red Blood Cell 3.48(L) 4.58 - 5.54 x10(6)/mc L [facility] Hemoglobin 10.9(L) 13.7 - 16.5 g/dL [facility] Hematocrit 32.9(L) 40.5 - 48.5 % [facility] Mean Cell Volume 94.5(H) 82.9 - 93.1 fL [facility] Mean Cell Hemoglobin 31.3 27.5 - 32.1 pg [facility] Mean Cell Hemoglobin Concentration 33.1 32.0 - 35.7 g/dL [facility] Platelet 253 145 - 357 x10(3)/mc L [facility] RDW Standard Deviation 52.1(H) 36.0 - 45.0 fL [facility] RDW coefficient of variation 15.1(H) 11.4 - 13.8 % [facility] Mean Platelet Volume 9.6 7.6 - 12.9 fL [facility] NRBC% auto 0.0 % [facility] NRBC Absolute 0.000 0.000 - 0.000 x10(3)/mc L [facility] Blood 08/02/2022 5:02 AM EDT 08/02/2022 5:43 AM EDT Narrative Resulting Agency Comment Spec In Lab Alaina Avalos MD HEMATOLOGY ORDERABL ES Performing Organization Address [facility] [place] [place] [address] * Heparin (unfractionated) Level (08/02/2022 5:02 AM EDT) UF Heparin 0.40 IU/mL [facility] Comment: Heparin (anti-Xa) levels should be determined in a plasma sample that has been drawn 6 hours after a dose change to approximate steady-state for continuous heparin infusions. Indication specific Heparin (anti-Xa) levels based on order set selection: Acute DVT or PE treatment: 0.3 ? 0.7 IU/mL Thrombosis Prevention (eg. atrial fibrillation, george-procedural bridging, mechanical valves): 0.3 ? 0.7 IU/mL Acute Coronary Syndrome: 0.3 ? 0.7 IU/mL Stroke Indications: 0.3 ? 0.5 IU/mL Ultra-low intensity (select indications in cardiac surgery): 0.1 ? 0.3 IU/mL Blood 08/02/2022 5:02 AM EDT 08/02/2022 5:43 AM EDT Narrative Resulting Agency Comment Spec In Lab Marco Dior MD HEMATOLOGY ORDERABLE S Performing Organization Address City/[facility]/ZIP Co de Phone Number [facility] [place] [address] * Phosphorus (08/02/2022 5:02 AM EDT) Phosphorus 3.9 2.5 - 4.5 mg/dL [facility] Blood 08/02/2022 5:02 AM EDT 08/02/2022 5:43 AM EDT Narrative Resulting Agency Comment Spec In Lab Marco Dior MD CHEMISTRY ORDERABLES Performing Organization Address [facility] Co de Phone Number [facility] [place] [address] * Magnesium (08/02/2022 5:02 AM EDT) Magnesium 0.80 0.69 - 1.07 mmol/L [facility] Blood 08/02/2022 5:02 AM EDT 08/02/2022 5:43 AM EDT Narrative Resulting Agency Comment Spec In Lab Marco Dior MD CHEMISTRY ORDERABLES Performing Organization Address [facility] de Phone Number [facility] [place] [address] * (ABNORMAL) Basic Metabolic Panel (non-fasting) (08/02/2022 5:02 AM EDT) Glucose 120 65 - 199 mg/dL [facility] Comment:Diabetes: >=200 mg/d L plus symptoms Blood Urea Nitrogen 19 10 - 20 mg/dL [facility] Creatinine 0.97 0.80 - 1.50 mg/dL [facility] Sodium 136 135 - 145 mmol/L [facility] Potassium 3.2(L) 3.5 - 5.0 mmol/L [facility] Comment: Please note: ??Patients with WBC >100,000 may have falsely elevated Potassium levels. ??For accurate Potassium quantification in these patients send serum separator tube (gold top) for subsequent determinations. ??Contact the Clinical Chemistry Laboratory if there are any questions. Chloride 103 98 - 107 mmol/L [facility] Carbon Dioxide 22 22 - 31 mmol/L [facility] Anion Gap 11 5 - 15 mmol/L [facility] Calcium 8.5 8.5 - 10.5 mg/dL [facility] Est Glomerular Filtration Rate 93 >=60 mL/min/1. 73 m?? [facility] Comment: This patient's estimated GFR was [...] In Lab Marco Dior MD CHEMISTRY ORDERABLES Performing Organization Address [facility] Co de Phone Number [facility] [address] * Heparin (unfractionated) Level (08/02/2022 12:12 AM EDT) UF Heparin 0.38 IU/mL [facility] Comment: Heparin (anti-Xa) levels should be determined in a plasma sample that has been drawn 6 hours after a dose change to approximate steady-state for continuous heparin infusions. Indication specific Heparin (anti-Xa) levels based on order set selection: Acute DVT or PE treatment: 0.3 ? 0.7 IU/mL Thrombosis Prevention (eg. atrial fibrillation, george-procedural bridging, mechanical valves): 0.3 ? 0.7 IU/mL Acute Coronary Syndrome: 0.3 ? 0.7 IU/mL Stroke Indications: 0.3 ? 0.5 IU/mL Ultra-low intensity (select indications in cardiac surgery): 0.1 ? 0.3 IU/mL Blood 08/02/2022 12:1 2 AM EDT 08/02/2022 12:29 AM EDT Narrative Resulting Agency Comment Spec In Lab Marco Dior MD HEMATOLOGY ORDERABLE S Performing Organization Address [facility] Co de Phone Number [facility] [address] * Heparin (unfractionated) Level (08/01/2022 5:00 PM EDT) UF Heparin 0.43 IU/mL [facility] Comment: Heparin (anti-Xa) levels should be determined in a plasma sample that has been drawn 6 hours after a dose change to approximate steady-state for continuous heparin infusions. Indication specific Heparin (anti-Xa) levels based on order set selection: Acute DVT or PE treatment: 0.3 ? 0.7 IU/mL Thrombosis Prevention (eg. atrial fibrillation, george-procedural bridging, mechanical valves): 0.3 ? 0.7 IU/mL Acute Coronary Syndrome: 0.3 ? 0.7 IU/mL Stroke Indications: 0.3 ? 0.5 IU/mL Ultra-low intensity (select indications in cardiac surgery): 0.1 ? 0.3 IU/mL Blood 08/01/2022 5:00 PM EDT 08/01/2022 5:42 PM EDT Narrative Resulting Agency Comment Spec In Lab Marco Dior MD HEMATOLOGY ORDERABLE S [facility] [address] * (ABNORMAL) Basic Metabolic Panel (non-fasting) (08/01/2022 2:09 PM EDT) Glucose 113 65 - 199 mg/dL [facility] Comment:Diabetes: >=200 mg/d L plus symptoms Blood Urea Nitrogen 23(H) 10 - 20 mg/dL [facility] Creatinine 0.93 0.80 - 1.50 mg/dL [facility] Sodium 135 135 - 145 mmol/L [facility] Potassium 3.6 3.5 - 5.0 mmol/L [facility] Comment: Please note: ??Patients with WBC >100,000 may have falsely elevated Potassium levels. ??For accurate Potassium quantification in these patients send serum separator tube (gold top) for subsequent determinations. ??Contact the Clinical Chemistry Laboratory if there are any questions. Chloride 102 98 - 107 mmol/L [facility] Carbon Dioxide 23 22 - 31 mmol/L [facility] Anion Gap 10 5 - 15 mmol/L [facility] Calcium 8.4(L) 8.5 - 10.5 mg/dL [facility] Est Glomerular Filtration Rate 98 >=60 mL/min/1. 73 m?? [facility] Comment: This patient's estimated GFR was [...] and symptoms in addition to eGFR. Blood 08/01/2022 2:09 PM EDT 08/01/2022 2:18 PM EDT Narrative Resulting Agency Comment Spec In Lab Marco Dior MD CHEMISTRY ORDERABLES [facility] [address] * Heparin (unfractionated) Level (08/01/2022 9:58 AM EDT) UF Heparin 0.19 IU/mL [facility] Comment: Heparin (anti-Xa) levels should be determined in a plasma sample that has been drawn 6 hours after a dose change to approximate steady-state for continuous heparin infusions. Indication specific Heparin (anti-Xa) levels based on order set selection: Acute DVT or PE treatment: 0.3 ? 0.7 IU/mL Thrombosis Prevention (eg. atrial fibrillation, george-procedural bridging, mechanical valves): 0.3 ? 0.7 IU/mL Acute Coronary Syndrome: 0.3 ? 0.7 IU/mL Stroke Indications: 0.3 ? 0.5 IU/mL Ultra-low intensity (select indications in cardiac surgery): 0.1 ? 0.3 IU/mL Blood 08/01/2022 9:58 AM EDT 08/01/2022 10:07 AM EDT Narrative Resulting Agency Comment Spec In Lab Marco Dior MD [place] [address] * (ABNORMAL) Differential, Automated (08/01/2022 2:44 AM EDT) Neutrophil % 64.6 % [facility] Neutrophil Absolute 6.45(H) 1.70 - 6.10 x10(3)/mc L [facility] Lymph % 22.3 % [facility] Lymphocytes Abs 2.2 0.9 - 3.2 x10(3)/mc L [facility] Monocyte % 9.6 % [facility] Monocyte Abs 1.0(H) 0.3 - 0.9 x10(3)/mc L [facility] Eos % 1.6 % [facility] Eosinophils Abs 0.2 0.0 - 0.4 x10(3)/mc L [facility] Basophil % 0.5 % [facility] Baso Absolute 0.0 0.0 - 0.1 x10(3)/mc L [facility] Immature Gran % 1.40 % [facility] Comment: Immature granulocytes(IG's)percentage and absolute count will include metamyelocytes, myelocytes, and promyelocytes. Blood smears from CBCs yielding IG's will be scanned manually for concordance. If this scan disagrees with the automated IG or if promyelocytes are noted, a manual differential will be performed. Immature Gran Absolute 0.14(H) 0.00 - 0.04 x10(3)/mc L [facility] Blood 08/01/2022 2:44 AM EDT 08/01/2022 2:57 AM EDT Narrative Resulting Agency Comment Spec In Lab Alaina Avalos MD HEMATOLOGY ORDERABL ES Performing Organization Address City/[facility]/ZIP Co de Phone Number [facility] [place] [address] * (ABNORMAL) Hemogram (08/01/2022 2:44 AM EDT) White Blood Cell 10.0(H) 4.0 - 9.5 x10(3)/mc L [facility] Red Blood Cell 4.01(L) 4.58 - 5.54 x10(6)/mc L [facility] Hemoglobin 12.3(L) 13.7 - 16.5 g/dL [facility] Hematocrit 36.9(L) 40.5 - 48.5 % [facility] Mean Cell Volume 92.0 82.9 - 93.1 fL [facility] Mean Cell Hemoglobin 30.7 27.5 - 32.1 pg [facility] Mean Cell Hemoglobin Concentration 33.3 32.0 - 35.7 g/dL [facility] Platelet 255 145 - 357 x10(3)/mc L [facility] RDW Standard Deviation 49.2(H) 36.0 - 45.0 fL [facility] RDW coefficient of variation 14.7(H) 11.4 - 13.8 % [facility] Mean Platelet Volume 9.3 7.6 - 12.9 fL [facility] NRBC% auto 0.0 % [facility] NRBC Absolute 0.000 0.000 - 0.000 x10(3)/mc L [facility] Blood 08/01/2022 2:44 AM EDT 08/01/2022 2:57 AM EDT Narrative Resulting Agency Comment Spec In Lab Alaina Avalos MD HEMATOLOGY ORDERABL ES Performing Organization Address City/State/[facility] Co de Phone Number [facility] [place] [address] * Heparin (unfractionated) Level (08/01/2022 2:44 AM EDT) UF Heparin 0.24 IU/mL [facility] Comment: Heparin (anti-Xa) levels should be determined in a plasma sample that has been drawn 6 hours after a dose change to approximate steady-state for continuous heparin infusions. Indication specific Heparin (anti-Xa) levels based on order set selection: Acute DVT or PE treatment: 0.3 ? 0.7 IU/mL Thrombosis Prevention (eg. atrial fibrillation, george-procedural bridging, mechanical valves): 0.3 ? 0.7 IU/mL Acute Coronary Syndrome: 0.3 ? 0.7 IU/mL Stroke Indications: 0.3 ? 0.5 IU/mL Ultra-low intensity (select indications in cardiac surgery): 0.1 ? 0.3 IU/mL Blood 08/01/2022 2:44 AM EDT 08/01/2022 2:57 AM EDT Narrative Resulting Agency Comment Spec In Lab Marco Dior MD HEMATOLOGY ORDERABLE S Performing Organization Address [facility] Co de Phone Number [facility] [place] [address] * Phosphorus (08/01/2022 2:44 AM EDT) Phosphorus 3.5 2.5 - 4.5 mg/dL [facility] Blood 08/01/2022 2:44 AM EDT 08/01/2022 2:57 AM EDT Narrative Resulting Agency Comment Spec In Lab Marco Dior MD CHEMISTRY ORDERABLES Performing Organization Address [facility] de Phone Number [facility] [place] [address] * Magnesium (08/01/2022 2:44 AM EDT) Magnesium 0.73 0.69 - 1.07 mmol/L [facility] Blood 08/01/2022 2:44 AM EDT 08/01/2022 2:57 AM EDT Narrative Resulting Agency Comment Spec In Lab Marco Dior MD CHEMISTRY ORDERABLES Performing Organization Address [facility] de Phone Number [facility] [place] [address] * (ABNORMAL) Basic Metabolic Panel (non-fasting) (08/01/2022 2:44 AM EDT) Glucose 94 65 - 199 mg/dL [facility] Comment:Diabetes: >=200 mg/d L plus symptoms Blood Urea Nitrogen 29(H) 10 - 20 mg/dL [facility] Creatinine 1.05 0.80 - 1.50 mg/dL [facility] Sodium 137 135 - 145 mmol/L [facility] Potassium 2.8(Criti willie) 3.5 - 5.0 mmol/L [facility] Comment: called by bm/read back by kylee de anda 08/01/22 2390 Please note: ??Patients with WBC >100,000 may have falsely elevated Potassium levels. ??For accurate Potassium quantification in these patients send serum separator tube (gold top) for subsequent determinations. ??Contact the Clinical Chemistry Laboratory if there are any questions. Chloride 100 98 - 107 mmol/L [facility] Carbon Dioxide 22 22 - 31 mmol/L [facility] Anion Gap 15 5 - 15 mmol/L [facility] Calcium 8.7 8.5 - 10.5 mg/dL [facility] Est Glomerular Filtration Rate 84 >=60 mL/min/1. 73 m?? [facility] Comment: This patient's estimated GFR was [...] and symptoms in addition to eGFR. Blood 08/01/2022 2:44 AM EDT 08/01/2022 2:57 AM EDT Narrative Resulting Agency Comment Spec In Lab Marco Dior MD CHEMISTRY ORDERABLES [facility] [address] * (ABNORMAL) Urinalysis Microscopic Exam (07/31/2022 6:50 PM EDT) RBC, Urine 9(H) 0 - 3 /HPF [facility] WBC, Urine 2 0 - 3 /HPF [facility] Squamous Epithelial Cells Raw Data, Urine 1 <=4 /HPF [facility] Hyaline Casts, Urine 2 0 - 2 /LPF [facility] Clean Catch Urine 07/31/2022 6:50 PM EDT 07/31/2022 7:01 PM EDT Narrative Resulting Agency Comment Spec In Lab Abiel ROBERTSON URINE ORDERABLES Performing Organization Address City/[facility]/ZIP Co de Phone Number [facility] [address] * Urine Hold (07/31/2022 6:50 PM EDT) Hold, Urine Sample in lab. [facility] Urine Urine / Unknown 07/31/2022 6 :50 PM EDT 07/31/2022 7:02 PM EDT Abiel ROBERTSON URINE ORDERABLES Performing Organization Address [facility]/ZIP Co de Phone Number [facility] [place] [address] * (ABNORMAL) Urinalysis with reflex Culture (07/31/2022 6:50 PM EDT) Glucose, Urine Dipstick Negative Negative mg/dL [facility] Protein, Urine Dipstick Trace(A) Negative mg/dL [facility] Bilirubin, Urine Dipstick Moderate(A) Negative mg/dL [facility] Comment: Clinical correlation required for positive Urine Bilirubin results as false positive may occur with some drugs and drug related products. If a false positive is suspected a serum total bilirubin should be considered if clinically indicated. Urobilinogen, Urine Dipstick Normal Normal mg/dL [facility] pH, Urn (dipstick) 6.0 5.0 - 8.0 [facility] Blood, Urine Dipstick Negative Negative mg/dL [facility] Ketone, Urine Dipstick 15(A) Negative mg/dL [facility] Nitrite, Urine Dipstick Negative Negative [facility] Leukocytes, Urine Dipstick Trace(A) Negative [facility] Appearance, Urine Dipstick Cloudy(A) Clear [facility] Specific [place] Urine Automated >=1.030(A) 1.005 - 1.030 [facility] Color, Urine Dipstick Dark Yellow Yellow [facility] Reflex to Culture No [facility] Clean Catch Urine 07/31/2022 6:50 PM EDT 07/31/2022 7:01 PM EDT Narrative Resulting Agency Comment Spec In Lab Marco Dior MD URINE ORDERABLES Performing Organization Address [facility] Co de Phone Number [facility] [place] [address] * Heparin (unfractionated) Level (07/31/2022 6:17 PM EDT) UF Heparin <0.04 IU/mL [facility] Comment: Specimen drawn more than one hour prior to testing. Results may not be reliable for heparin monitoring. Result may be falsely low. Heparin (anti-Xa) levels should be determined in a plasma sample that has been drawn 6 hours after a dose change to approximate steady-state for continuous heparin infusions. Indication specific Heparin (anti-Xa) levels based on order set selection: Acute DVT or PE treatment: 0.3 ? 0.7 IU/mL Thrombosis Prevention (eg. atrial fibrillation, george-procedural bridging, mechanical valves): 0.3 ? 0.7 IU/mL Acute Coronary Syndrome: 0.3 ? 0.7 IU/mL Stroke Indications: 0.3 ? 0.5 IU/mL Ultra-low intensity (select indications in cardiac surgery): 0.1 ? 0.3 IU/mL Blood 07/31/2022 6:17 PM EDT 07/31/2022 7:22 PM EDT Narrative Resulting Agency Comment Spec In Lab Marco Dior MD HEMATOLOGY ORDERABLE S Performing Organization Address City/[facility]/ZIP Co de Phone Number [facility] [place] [address] * (ABNORMAL) Differential, Automated (07/31/2022 5:50 AM EDT) Neutrophil % 66.1 % [facility] Neutrophil Absolute 9.40(H) 1.70 - 6.10 x10(3)/mc L [facility] Lymph % 21.7 % [facility] Lymphocytes Abs 3.1 0.9 - 3.2 x10(3)/mc L [facility] Monocyte % 9.0 % [facility] Monocyte Abs 1.3(H) 0.3 - 0.9 x10(3)/ L [facility] Eos % 1.5 % [facility] Eosinophils Abs 0.2 0.0 - 0.4 x10(3)/ L [facility] Basophil % 0.4 % [facility] Baso Absolute 0.1 0.0 - 0.1 x10(3)/ L [facility] Immature Gran % 1.30 % [facility] Comment: Immature granulocytes(IG's)percentage and absolute count will include metamyelocytes, myelocytes, and promyelocytes. Blood smears from CBCs yielding IG's will be scanned manually for concordance. If this scan disagrees with the automated IG or if promyelocytes are noted, a manual differential will be performed. Immature Gran Absolute 0.18(H) 0.00 - 0.04 x10(3)/ L [facility] Blood 07/31/2022 5:50 AM EDT 07/31/2022 6:02 AM EDT Narrative Resulting Agency Comment Spec In Lab Alaina Avalos MD HEMATOLOGY ORDERABL ES [facility] [place] [address] * (ABNORMAL) Hemogram (07/31/2022 5:50 AM EDT) White Blood Cell 14.2(H) 4.0 - 9.5 x10(3)/mc L [facility] Red Blood Cell 4.06(L) 4.58 - 5.54 x10(6)/ L [facility] Hemoglobin 12.7(L) 13.7 - 16.5 g/dL [facility] Hematocrit 38.8(L) 40.5 - 48.5 % [facility] Mean Cell Volume 95.6(H) 82.9 - 93.1 fL [facility] Mean Cell Hemoglobin 31.3 27.5 - 32.1 pg [facility] Mean Cell Hemoglobin Concentration 32.7 32.0 - 35.7 g/dL [facility] Platelet 284 145 - 357 x10(3)/mc L [facility] RDW Standard Deviation 52.3(H) 36.0 - 45.0 fL [facility] RDW coefficient of variation 15.1(H) 11.4 - 13.8 % [facility] Mean Platelet Volume 9.5 7.6 - 12.9 fL [facility] NRBC% auto 0.0 % [facility] NRBC Absolute 0.000 0.000 - 0.000 x10(3)/mc L [facility] Blood 07/31/2022 5:50 AM EDT 07/31/2022 6:02 AM EDT Narrative Resulting Agency Comment Spec In Lab Alaina Avalos MD HEMATOLOGY ORDERABL ES Performing Organization Address [facility] [place] [address] * Phosphorus (07/31/2022 5:50 AM EDT) Phosphorus 4.0 2.5 - 4.5 mg/dL [facility] Blood 07/31/2022 5:50 AM EDT 07/31/2022 6:02 AM EDT Narrative Resulting Agency Comment Spec In Lab Marco Dior MD CHEMISTRY ORDERABLES Performing Organization Address [facility] Co de Phone Number [facility] [place] [address] * Magnesium (07/31/2022 5:50 AM EDT) Magnesium 0.81 0.69 - 1.07 mmol/L [facility] Blood 07/31/2022 5:50 AM EDT 07/31/2022 6:02 AM EDT Narrative Resulting Agency Comment Spec In Lab Marco Dior MD CHEMISTRY ORDERABLES Performing Organization Address [facility] Co de Phone Number [facility] [place] [address] * (ABNORMAL) Basic Metabolic Panel (non-fasting) (07/31/2022 5:50 AM EDT) Glucose 87 65 - 199 mg/dL [facility] Comment:Diabetes: >=200 mg/d L plus symptoms Blood Urea Nitrogen 26(H) 10 - 20 mg/dL [facility] Creatinine 0.95 0.80 - 1.50 mg/dL [facility] Sodium 133(L) 135 - 145 mmol/L [facility] Potassium 3.2(L) 3.5 - 5.0 mmol/L [facility] Comment: Please note: ??Patients with WBC >100,000 may have falsely elevated Potassium levels. ??For accurate Potassium quantification in these patients send serum separator tube (gold top) for subsequent determinations. ??Contact the Clinical Chemistry Laboratory if there are any questions. Chloride 97(L) 98 - 107 mmol/L [facility] Carbon Dioxide 20(L) 22 - 31 mmol/L [facility] Anion Gap 16(H) 5 - 15 mmol/L [facility] Calcium 9.2 8.5 - 10.5 mg/dL [facility] Est Glomerular Filtration Rate 95 >=60 mL/min/1. 73 m?? [facility] Comment: This patient's estimated GFR was [...] and symptoms in addition to eGFR. Blood 07/31/2022 5:50 AM EDT 07/31/2022 6:02 AM EDT Narrative Resulting Agency Comment Spec In Lab Marco Dior MD CHEMISTRY ORDERABLES [facility] [place] [address] * (ABNORMAL) Differential, Automated (07/30/2022 4:05 AM EDT) Neutrophil % 76.2 % [facility] Neutrophil Absolute 6.55(H) 1.70 - 6.10 x10(3)/ L [facility] Lymph % 14.3 % [facility] Lymphocytes Abs 1.2 0.9 - 3.2 x10(3)/mc L [facility] Monocyte % 7.4 % [facility] Monocyte Abs 0.6 0.3 - 0.9 x10(3)/[facility] LAB[facility] Eos % 0.8 % [facility] Eosinophils Abs 0.1 0.0 - 0.4 x10(3)/ L [facility] Basophil % 0.3 % [facility] Baso Absolute 0.0 0.0 - 0.1 x10(3)/[facility] LAB[facility]ATORY Immature Gran % 1.00 % [facility] Comment: Immature granulocytes(IG's)percentage and absolute count will include metamyelocytes, myelocytes, and promyelocytes. Blood smears from CBCs yielding IG's will be scanned manually for concordance. If this scan disagrees with the automated IG or if promyelocytes are noted, a manual differential will be performed. Immature Gran Absolute 0.09(H) 0.00 - 0.04 x10(3)/ L [facility] Blood 07/30/2022 4:05 AM EDT 07/30/2022 4:11 AM EDT Narrative Resulting Agency Comment Spec In Lab Adi Hwang MD HEMATOLOGY ORDER TABITHA [facility] [place] [address] * (ABNORMAL) Hemogram (07/30/2022 4:05 AM EDT) White Blood Cell 8.6 4.0 - 9.5 x10(3)/ L [facility] Red Blood Cell 3.84(L) 4.58 - 5.54 x10(6)/[facility] Hemoglobin 12.1(L) 13.7 - 16.5 g/dL [facility] Hematocrit 36.9(L) 40.5 - 48.5 % [facility] Mean Cell Volume 96.1(H) 82.9 - 93.1 fL [facility] Mean Cell Hemoglobin 31.5 27.5 - 32.1 pg [facility] Mean Cell Hemoglobin Concentration 32.8 32.0 - 35.7 g/dL [facility] Platelet 179 145 - 357 x10(3)/mc L [facility] RDW Standard Deviation 52.4(H) 36.0 - 45.0 fL [facility] RDW coefficient of variation 15.1(H) 11.4 - 13.8 % [facility] Mean Platelet Volume 9.7 7.6 - 12.9 fL [facility] NRBC% auto 0.0 % [facility] NRBC Absolute 0.000 0.000 - 0.000 x10(3)/mc L [facility] Blood 07/30/2022 4:05 AM EDT 07/30/2022 4:11 AM EDT Narrative Resulting Agency Comment Spec In Lab Adi Hwang MD HEMATOLOGY ORDER TABITHA Performing Organization Address City/[facility]/ZIP Co de Phone Number [facility] [place] [address] * (ABNORMAL) Phosphorus (07/30/2022 4:05 AM EDT) Phosphorus 4.7(H) 2.5 - 4.5 mg/dL [facility] Blood 07/30/2022 4:05 AM EDT 07/30/2022 4:11 AM EDT Narrative Resulting Agency Comment Spec In Lab Marco Dior MD CHEMISTRY ORDERABLES Performing Organization Address City/[facility]/ZIP Co de Phone Number [facility] [place] [address] * Magnesium (07/30/2022 4:05 AM EDT) Magnesium 0.80 0.69 - 1.07 mmol/L [facility] Blood 07/30/2022 4:05 AM EDT 07/30/2022 4:11 AM EDT Narrative Resulting Agency Comment Spec In Lab Marco Dior MD CHEMISTRY ORDERABLES [facility] [address] * (ABNORMAL) Basic Metabolic Panel (non-fasting) (07/30/2022 4:05 AM EDT) Glucose 84 65 - 199 mg/dL [facility] Comment:Diabetes: >=200 mg/d L plus symptoms Blood Urea Nitrogen 22(H) 10 - 20 mg/dL [facility] Creatinine 0.98 0.80 - 1.50 mg/dL [facility] Sodium 140 135 - 145 mmol/L [facility] Potassium 3.9 3.5 - 5.0 mmol/L [facility] Comment: Please note: ??Patients with WBC >100,000 may have falsely elevated Potassium levels. ??For accurate Potassium quantification in these patients send serum separator tube (gold top) for subsequent determinations. ??Contact the Clinical Chemistry Laboratory if there are any questions. Chloride 101 98 - 107 mmol/L [facility] Carbon Dioxide 20(L) 22 - 31 mmol/L [facility] Anion Gap 19(H) 5 - 15 mmol/L [facility] Calcium 9.2 8.5 - 10.5 mg/dL [facility] Est Glomerular Filtration Rate 92 >=60 mL/min/1. 73 m?? [facility] Comment: This patient's estimated GFR was [...] and symptoms in addition to eGFR. Blood 07/30/2022 4:05 AM EDT 07/30/2022 4:11 AM EDT Narrative Resulting Agency Comment Spec In Lab Marco Dior MD CHEMISTRY ORDERABLES Performing Organization Address City/[facility] Co de Phone Number [facility] [place] [address] * (ABNORMAL) Basic Metabolic Panel (non-fasting) (07/29/2022 1:40 PM EDT) Glucose 68 65 - 199 mg/dL [facility] Comment:Diabetes: >=200 mg/d L plus symptoms Blood Urea Nitrogen 18 10 - 20 mg/dL [facility] Creatinine 1.02 0.80 - 1.50 mg/dL [facility] Sodium 139 135 - 145 mmol/L [facility] Potassium 4.0 3.5 - 5.0 mmol/L [facility] Comment: Please note: ??Patients with WBC >100,000 may have falsely elevated Potassium levels. ??For accurate Potassium quantification in these patients send serum separator tube (gold top) for subsequent determinations. ??Contact the Clinical Chemistry Laboratory if there are any questions. Chloride 99 98 - 107 mmol/L [facility] Carbon Dioxide 19(L) 22 - 31 mmol/L [facility] Anion Gap 21(H) 5 - 15 mmol/L [facility] Calcium 8.8 8.5 - 10.5 mg/dL [facility] Est Glomerular Filtration Rate 87 >=60 mL/min/1. 73 m?? [facility] Comment: This patient's estimated GFR was [...] and symptoms in addition to eGFR. Blood 07/29/2022 1:40 PM EDT 07/29/2022 1:43 PM EDT Narrative Resulting Agency Comment Spec In Lab Lyly aBltazar APR[place] [address] * (ABNORMAL) Differential, Automated (07/29/2022 1:32 AM EDT) Neutrophil % 76.9 % [facility] Neutrophil Absolute 6.96(H) 1.70 - 6.10 x10(3)/mc L [facility] Lymph % 15.7 % [facility] Lymphocytes Abs 1.4 0.9 - 3.2 x10(3)/mc L [facility] Monocyte % 5.7 % [facility] Monocyte Abs 0.5 0.3 - 0.9 x10(3)/mc L [facility] Eos % 0.2 % [facility] Eosinophils Abs 0.0 0.0 - 0.4 x10(3)/mc L [facility] Basophil % 0.2 % [facility] Baso Absolute 0.0 0.0 - 0.1 x10(3)/mc L [facility] Immature Gran % 1.30 % [facility] Comment: Immature granulocytes(IG's)percentage and absolute count will include metamyelocytes, myelocytes, and promyelocytes. Blood smears from CBCs yielding IG's will be scanned manually for concordance. If this scan disagrees with the automated IG or if promyelocytes are noted, a manual differential will be performed. Immature Gran Absolute 0.12(H) 0.00 - 0.04 x10(3)/mc L [facility] Blood 07/29/2022 1:32 AM EDT 07/29/2022 1:47 AM EDT Narrative Resulting Agency Comment Spec In Lab Adi Hwang MD [place] [address] * (ABNORMAL) Hemogram (07/29/2022 1:32 AM EDT) White Blood Cell 9.1 4.0 - 9.5 x10(3)/mc L [facility] Red Blood Cell 3.64(L) 4.58 - 5.54 x10(6)/mc L [facility] Hemoglobin 11.5(L) 13.7 - 16.5 g/dL [facility] Hematocrit 34.4(L) 40.5 - 48.5 % [facility] Mean Cell Volume 94.5(H) 82.9 - 93.1 fL [facility] Mean Cell Hemoglobin 31.6 27.5 - 32.1 pg [facility] Mean Cell Hemoglobin Concentration 33.4 32.0 - 35.7 g/dL [facility] Platelet 122(L) 145 - 357 x10(3)/mc L [facility] RDW Standard Deviation 52.0(H) 36.0 - 45.0 fL [facility] RDW coefficient of variation 15.1(H) 11.4 - 13.8 % [facility] Mean Platelet Volume 10.1 7.6 - 12.9 fL [facility] NRBC% auto 0.0 % [facility] NRBC Absolute 0.000 0.000 - 0.000 x10(3)/mc L [facility] Blood 07/29/2022 1:32 AM EDT 07/29/2022 1:47 AM EDT Narrative Resulting Agency Comment Spec In Lab Adi Hwang MD HEMATOLOGY ORDER TABITHA [facility] [address] * Phosphorus (07/29/2022 1:32 AM EDT) Phosphorus 3.8 2.5 - 4.5 mg/dL [facility] Blood 07/29/2022 1:32 AM EDT 07/29/2022 1:47 AM EDT Narrative Resulting Agency Comment Spec In Lab Marco Dior MD CHEMISTRY ORDERABLES [facility] [place] [address] * Magnesium (07/29/2022 1:32 AM EDT) Magnesium 0.83 0.69 - 1.07 mmol/L [facility] Blood 07/29/2022 1:32 AM EDT 07/29/2022 1:47 AM EDT Narrative Resulting Agency Comment Spec In Lab Marco Dior MD CHEMISTRY ORDERABLES [facility] [address] * (ABNORMAL) Basic Metabolic Panel (non-fasting) (07/29/2022 1:32 AM EDT) Glucose 71 65 - 199 mg/dL [facility] Comment:Diabetes: >=200 mg/d L plus symptoms Blood Urea Nitrogen 18 10 - 20 mg/dL [facility] Creatinine 1.00 0.80 - 1.50 mg/dL [facility] Sodium 139 135 - 145 mmol/L [facility] Potassium 3.9 3.5 - 5.0 mmol/L [facility] Comment: Please note: ??Patients with WBC >100,000 may have falsely elevated Potassium levels. ??For accurate Potassium quantification in these patients send serum separator tube (gold top) for subsequent determinations. ??Contact the Clinical Chemistry Laboratory if there are any questions. Chloride 100 98 - 107 mmol/L [facility] Carbon Dioxide 23 22 - 31 mmol/L [facility] Anion Gap 16(H) 5 - 15 mmol/L [facility] Calcium 8.7 8.5 - 10.5 mg/dL [facility] Est Glomerular Filtration Rate 89 >=60 mL/min/1. 73 m?? [facility] Comment: This patient's estimated GFR was [...] and symptoms in addition to eGFR. Blood 07/29/2022 1:32 AM EDT 07/29/2022 1:47 AM EDT Narrative Resulting Agency Comment Spec In Lab Marco Dior MD CHEMISTRY ORDERABLES Performing Organization Address City/[facility]/[place] [address] * (ABNORMAL) Differential, Automated (07/28/2022 4:43 AM EDT) [facility]rophil % 72.5 % [facility] Neutrophil Absolute 6.44(H) 1.70 - 6.10 x10(3)/mc L [facility] Lymph % 21.2 % [facility] Lymphocytes Abs 1.9 0.9 - 3.2 x10(3)/mc L [facility] Monocyte % 5.6 % [facility] Monocyte Abs 0.5 0.3 - 0.9 x10(3)/mc L [facility] Eos % 0.0 % [facility] Eosinophils Abs 0.0 0.0 - 0.4 x10(3)/mc L [facility] Basophil % 0.1 % [facility] Baso Absolute 0.0 0.0 - 0.1 x10(3)/mc L [facility] Immature Gran % 0.60 % [facility] Comment: Immature granulocytes(IG's)percentage and absolute count will include metamyelocytes, myelocytes, and promyelocytes. Blood smears from CBCs yielding IG's will be scanned manually for concordance. If this scan disagrees with the automated IG or if promyelocytes are noted, a manual differential will be performed. Immature Gran Absolute 0.05(H) 0.00 - 0.04 x10(3)/mc L [facility] Blood 07/28/2022 4:43 AM EDT 07/28/2022 4:51 AM EDT Narrative Resulting Agency Comment Spec In Lab Marco Dior MD HEMATOLOGY ORDERABLE S Performing Organization Address City/[facility]/[place] [address] * (ABNORMAL) Hemogram (07/28/2022 4:43 AM EDT) White Blood Cell 8.9 4.0 - 9.5 x10(3)/mc L [facility] Red Blood Cell 3.24(L) 4.58 - 5.54 x10(6)/mc L [facility] Hemoglobin 10.3(L) 13.7 - 16.5 g/dL [facility] Hematocrit 30.7(L) 40.5 - 48.5 % [facility] Mean Cell Volume 94.8(H) 82.9 - 93.1 fL [facility] Mean Cell Hemoglobin 31.8 27.5 - 32.1 pg [facility] Mean Cell Hemoglobin Concentration 33.6 32.0 - 35.7 g/dL [facility] Platelet 112(L) 145 - 357 x10(3)/mc L [facility] RDW Standard Deviation 53.6(H) 36.0 - 45.0 fL [facility] RDW coefficient of variation 15.2(H) 11.4 - 13.8 % [facility] Mean Platelet Volume 10.4 7.6 - 12.9 fL [facility] NRBC% auto 0.0 % [facility] NRBC Absolute 0.000 0.000 - 0.000 x10(3)/ L [facility] Blood 07/28/2022 4:43 AM EDT 07/28/2022 4:51 AM EDT Narrative Resulting Agency Comment Spec In Lab Marco Dior MD HEMATOLOGY ORDERABLE S [facility] [address] * (ABNORMAL) Basic Metabolic Panel (non-fasting) (07/28/2022 4:43 AM EDT) Glucose 75 65 - 199 mg/dL [facility] Comment:Diabetes: >=200 mg/d L plus symptoms Blood Urea Nitrogen 17 10 - 20 mg/dL [facility] Creatinine 1.03 0.80 - 1.50 mg/dL [facility] Sodium 139 135 - 145 mmol/L [facility] Potassium 3.7 3.5 - 5.0 mmol/L [facility] Comment: Please note: ??Patients with WBC >100,000 may have falsely elevated Potassium levels. ??For accurate Potassium quantification in these patients send serum separator tube (gold top) for subsequent determinations. ??Contact the Clinical Chemistry Laboratory if there are any questions. Chloride 104 98 - 107 mmol/L [facility] Carbon Dioxide 25 22 - 31 mmol/L [facility] Anion Gap 10 5 - 15 mmol/L [facility] Calcium 8.4(L) 8.5 - 10.5 mg/dL [facility] Est Glomerular Filtration Rate 86 >=60 mL/min/1. 73 m?? [facility] Comment: This patient's estimated GFR was [...] and symptoms in addition to eGFR. Blood 07/28/2022 4:43 AM EDT 07/28/2022 4:51 AM EDT Narrative Resulting Agency Comment Spec In Lab Marco Dior MD CHEMISTRY ORDERABLES [facility] [place] [address] * (ABNORMAL) Differential, Automated (07/27/2022 6:00 PM EDT) Neutrophil % 75.8 % [facility] Neutrophil Absolute 6.99(H) 1.70 - 6.10 x10(3)/mc L [facility] Lymph % 18.0 % [facility] Lymphocytes Abs 1.7 0.9 - 3.2 x10(3)/mc L [facility] Monocyte % 5.7 % [facility] Monocyte Abs 0.5 0.3 - 0.9 x10(3)/mc L [facility] Eos % 0.0 % [facility] Eosinophils Abs 0.0 0.0 - 0.4 x10(3)/ L [facility] Basophil % 0.1 % [facility] Baso Absolute 0.0 0.0 - 0.1 x10(3)/mc L [facility] Immature Gran % 0.40 % [facility] Comment: Immature granulocytes(IG's)percentage and absolute count will include metamyelocytes, myelocytes, and promyelocytes. Blood smears from CBCs yielding IG's will be scanned manually for concordance. If this scan disagrees with the automated IG or if promyelocytes are noted, a manual differential will be performed. Immature Gran Absolute 0.04 0.00 - 0.04 x10(3)/ L [facility] Blood 07/27/2022 6:00 PM EDT 07/27/2022 6:08 PM EDT Narrative Resulting Agency Comment Spec In Lab Earle Smith MD HEMATOLOGY ORDER TABITHA [facility] [place] [address] * (ABNORMAL) Hemogram (07/27/2022 6:00 PM EDT) White Blood Cell 9.2 4.0 - 9.5 x10(3)/mc L [facility] Red Blood Cell 3.31(L) 4.58 - 5.54 x10(6)/ L [facility] Hemoglobin 10.4(L) 13.7 - 16.5 g/dL [facility] Hematocrit 30.8(L) 40.5 - 48.5 % [facility] Mean Cell Volume 93.1 82.9 - 93.1 fL [facility] Mean Cell Hemoglobin 31.4 27.5 - 32.1 pg [facility] Mean Cell Hemoglobin Concentration 33.8 32.0 - 35.7 g/dL [facility] Platelet 104(L) 145 - 357 x10(3)/ L [facility] RDW Standard Deviation 51.3(H) 36.0 - 45.0 fL [facility] RDW coefficient of variation 15.1(H) 11.4 - 13.8 % [facility] Mean Platelet Volume 10.8 7.6 - 12.9 fL [facility] NRBC% auto 0.0 % [facility] NRBC Absolute 0.000 0.000 - 0.000 x10(3)/mc L [facility] Blood 07/27/2022 6:00 PM EDT 07/27/2022 6:08 PM EDT Narrative Resulting Agency Comment Spec In Lab Earle Smith MD HEMATOLOGY ORDER TABITHA [facility] [place] [address] * Basic Metabolic Panel (non-fasting) (07/27/2022 6:00 PM EDT) Glucose 92 65 - 199 mg/dL [facility] Comment:Diabetes: >=200 mg/d L plus symptoms Blood Urea Nitrogen 15 10 - 20 mg/dL [facility] Creatinine 1.08 0.80 - 1.50 mg/dL [facility] Sodium 138 135 - 145 mmol/L [facility] Potassium 3.8 3.5 - 5.0 mmol/L [facility] Comment: Please note: ??Patients with WBC >100,000 may have falsely elevated Potassium levels. ??For accurate Potassium quantification in these patients send serum separator tube (gold top) for subsequent determinations. ??Contact the Clinical Chemistry Laboratory if there are any questions. Chloride 104 98 - 107 mmol/L [facility] Carbon Dioxide 24 22 - 31 mmol/L [facility] Anion Gap 10 5 - 15 mmol/L [facility] Calcium 8.5 8.5 - 10.5 mg/dL [facility] Est Glomerular Filtration Rate 82 >=60 mL/min/1. 73 m?? [facility] Comment: This patient's estimated GFR was [...] and symptoms in addition to eGFR. Blood 07/27/2022 6:00 PM EDT 07/27/2022 6:08 PM EDT Narrative Resulting Agency Comment Spec In Lab Marco Dior MD CHEMISTRY ORDERABLES Performing Organization Address City/[facility] Co de Phone Number [facility] [address] * Phosphorus (07/27/2022 6:00 PM EDT) Pathologist [facility] Phosphorus 3.4 2.5 - 4.5 mg/dL [facility] Blood 07/27/2022 6:00 PM EDT 07/27/2022 6:08 PM EDT Narrative Resulting Agency Comment Spec In Lab Marco Dior MD CHEMISTRY ORDERABLES Performing Organization Address [facility] de Phone Number [facility] [place] [address] * Magnesium (07/27/2022 6:00 PM EDT) Magnesium 0.81 0.69 - 1.07 mmol/L [facility] Blood 07/27/2022 6:00 PM EDT 07/27/2022 6:08 PM EDT Narrative Resulting Agency Comment Spec In Lab Marco Dior MD CHEMISTRY ORDERABLES Performing Organization Address [facility] de Phone Number [facility] [place] [address] * (ABNORMAL) Differential, Automated (07/27/2022 8:15 AM EDT) Neutrophil % 80.7 % [facility] Neutrophil Absolute 8.20(H) 1.70 - 6.10 x10(3)/mc L [facility] Lymph % 11.9 % [facility] Lymphocytes Abs 1.2 0.9 - 3.2 x10(3)/mc L [facility] Monocyte % 6.8 % [facility] ITAL [facility] Monocyte Abs 0.7 0.3 - 0.9 x10(3)/ L [facility] Eos % 0.0 % [facility] Eosinophils Abs 0.0 0.0 - 0.4 x10(3)/ L [facility] Basophil % 0.1 % [facility] Baso Absolute 0.0 0.0 - 0.1 x10(3)/ L [facility] Immature Gran % 0.50 % [facility] Comment: Immature granulocytes(IG's)percentage and absolute count will include metamyelocytes, myelocytes, and promyelocytes. Blood smears from CBCs yielding IG's will be scanned manually for concordance. If this scan disagrees with the automated IG or if promyelocytes are noted, a manual differential will be performed. Immature Gran Absolute 0.05(H) 0.00 - 0.04 x10(3)/ L [facility] Blood 07/27/2022 8:15 AM EDT 07/27/2022 8:27 AM EDT Narrative Resulting Agency Comment Spec In Lab Earle Smith MD HEMATOLOGY ORDER TABITHA [facility] [place] [address] * (ABNORMAL) Hemogram (07/27/2022 8:15 AM EDT) White Blood Cell 10.2(H) 4.0 - 9.5 x10(3)/mc L [facility] Red Blood Cell 3.54(L) 4.58 - 5.54 x10(6)/mc L [facility] Hemoglobin 11.2(L) 13.7 - 16.5 g/dL [facility] Hematocrit 32.7(L) 40.5 - 48.5 % [facility] Mean Cell Volume 92.4 82.9 - 93.1 fL [facility] Mean Cell Hemoglobin 31.6 27.5 - 32.1 pg [facility] Mean Cell Hemoglobin Concentration 34.3 32.0 - 35.7 g/dL [facility] Platelet 96(L) 145 - 357 x10(3)/mc L [facility] RDW Standard Deviation 51.1(H) 36.0 - 45.0 fL [facility] RDW coefficient of variation 14.9(H) 11.4 - 13.8 % [facility] Mean Platelet Volume 10.7 7.6 - 12.9 fL [facility] NRBC% auto 0.0 % [facility] NRBC Absolute 0.000 0.000 - 0.000 x10(3)/mc L [facility] Blood 07/27/2022 8:15 AM EDT 07/27/2022 8:27 AM EDT Narrative Resulting Agency Comment Spec In Lab Earle Smith MD HEMATOLOGY ORDER TABITHA [facility] [place] [address] * Basic Metabolic Panel (non-fasting) (07/27/2022 8:15 AM EDT) Glucose 107 65 - 199 mg/dL [facility] Comment:Diabetes: >=200 mg/d L plus symptoms Blood Urea Nitrogen 11 10 - 20 mg/dL [facility] Creatinine 0.99 0.80 - 1.50 mg/dL [facility] Sodium 138 135 - 145 mmol/L [facility] Potassium 4.0 3.5 - 5.0 mmol/L [facility] Comment: Please note: ??Patients with WBC >100,000 may have falsely elevated Potassium levels. ??For accurate Potassium quantification in these patients send serum separator tube (gold top) for subsequent determinations. ??Contact the Clinical Chemistry Laboratory if there are any questions. Chloride 103 98 - 107 mmol/L [facility] Carbon Dioxide 25 22 - 31 mmol/L [facility] Anion Gap 10 5 - 15 mmol/L [facility] Calcium 8.8 8.5 - 10.5 mg/dL [facility] Est Glomerular Filtration Rate 91 >=60 mL/min/1. 73 m?? [facility] Comment: This patient's estimated GFR was [...] and symptoms in addition to eGFR. Blood 07/27/2022 8:15 AM EDT 07/27/2022 8:27 AM EDT Narrative Resulting Agency Comment Spec In Lab Marco Dior MD CHEMISTRY ORDERABLES Performing Organization Address City/[facility]/ZIP Co de Phone Number [facility] [address] * (ABNORMAL) Phosphorus (07/27/2022 8:15 AM EDT) Phosphorus 2.3(L) 2.5 - 4.5 mg/dL [facility] Blood 07/27/2022 8:15 AM EDT 07/27/2022 8:27 AM EDT Narrative Resulting Agency Comment Spec In Lab Marco Dior MD CHEMISTRY ORDERABLES Performing Organization Address [facility] Co de Phone Number [facility] [place] [address] * Magnesium (07/27/2022 8:15 AM EDT) Magnesium 0.82 0.69 - 1.07 mmol/L [facility] Blood 07/27/2022 8:15 AM EDT 07/27/2022 8:27 AM EDT Narrative Resulting Agency Comment Spec In Lab Marco Dior MD CHEMISTRY ORDERABLES Performing Organization Address [facility] Co de Phone Number [facility] [place] [address] * (ABNORMAL) Differential, Automated (07/27/2022 5:26 AM EDT) Neutrophil % 82.1 % [facility] Neutrophil Absolute 7.91(H) 1.70 - 6.10 x10(3)/ L [facility] Lymph % 11.2 % [facility] Lymphocytes Abs 1.1 0.9 - 3.2 x10(3)/mc L [facility] Monocyte % 6.4 % [facility] Monocyte Abs 0.6 0.3 - 0.9 x10(3)/[facility] Eos % 0.0 % [facility] Eosinophils Abs 0.0 0.0 - 0.4 x10(3)/[facility] Basophil % 0.1 % [facility] Baso Absolute 0.0 0.0 - 0.1 x10(3)/[facility] Immature Gran % 0.20 % [facility] Comment: Immature granulocytes(IG's)percentage and absolute count will include metamyelocytes, myelocytes, and promyelocytes. Blood smears from CBCs yielding IG's will be scanned manually for concordance. If this scan disagrees with the automated IG or if promyelocytes are noted, a manual differential will be performed. Immature Gran Absolute 0.02 0.00 - 0.04 x10(3)/[facility] Blood 07/27/2022 5:26 AM EDT 07/27/2022 5:31 AM EDT Narrative Resulting Agency Comment Spec In Lab Edwin England MD HEMATOLOGY ORDERABLE S [facility] [place] [address] * (ABNORMAL) Hemogram (07/27/2022 5:26 AM EDT) White Blood Cell 9.6(H) 4.0 - 9.5 x10(3)/ L [facility] Red Blood Cell 3.36(L) 4.58 - 5.54 x10(6)/[facility] Hemoglobin 10.6(L) 13.7 - 16.5 g/dL [facility] Hematocrit 31.1(L) 40.5 - 48.5 % [facility] Mean Cell Volume 92.6 82.9 - 93.1 fL [facility] Mean Cell Hemoglobin 31.5 27.5 - 32.1 pg [facility] Mean Cell Hemoglobin Concentration 34.1 32.0 - 35.7 g/dL [facility] Platelet 92(L) 145 - 357 x10(3)/mc L [facility] RDW Standard Deviation 50.7(H) 36.0 - 45.0 fL [facility] RDW coefficient of variation 15.2(H) 11.4 - 13.8 % [facility] Mean Platelet Volume 10.3 7.6 - 12.9 fL [facility] NRBC% auto 0.0 % [facility] NRBC Absolute 0.000 0.000 - 0.000 x10(3)/mc L [facility] Blood 07/27/2022 5:26 AM EDT 07/27/2022 5:31 AM EDT Narrative Resulting Agency Comment Spec In Lab Edwin England MD HEMATOLOGY ORDERABLE S Performing Organization Address City/[facility]/ZIP Co de Phone Number [facility] [address] * (ABNORMAL) CK (07/27/2022 5:26 AM EDT) Creatine Kinase 1,164(H) 0 - 200 unit/L [facility] Blood 07/27/2022 5:26 AM EDT 07/27/2022 5:31 AM EDT Narrative Resulting Agency Comment Spec In Lab Marco Dior MD CHEMISTRY ORDERABLES Performing Organization Address [facility]/ZIP Co de Phone Number [facility] [place] [address] * (ABNORMAL) Fibrinogen (07/27/2022 5:26 AM EDT) Fibrinogen 575(H) 200 - 393 mg/dL [facility] Comment: A fibrinogen level >100 mg/dL is adequate for hemostasis in most patients without underlying bleeding disorders. Blood 07/27/2022 5:26 AM EDT 07/27/2022 5:31 AM EDT Narrative Resulting Agency Comment Spec In Lab Marco Dior MD HEMATOLOGY ORDERABLE S Performing Organization Address [facility] de Phone Number [facility] [address] * (ABNORMAL) APTT (07/27/2022 5:26 AM EDT) Partial Thromboplastin Time 38(H) 25 - 37 sec [facility] Comment: The PTT is NOT appropriate for heparin monitoring. Use the Anti-Xa level for heparin monitoring (HEP UFH) or LMWH monitoring (HEP LMW). A PTT less than 37 seconds generally indicates adequate hemostasis. Blood 07/27/2022 5:26 AM EDT 07/27/2022 5:31 AM EDT Narrative Resulting Agency Comment Spec In Lab Marco Dior MD HEMATOLOGY ORDERABLE S Performing Organization Address [facility] de Phone Number [facility] [place] [address] * (ABNORMAL) Comprehensive metabolic panel (non-fasting) (07/27/2022 5:26 AM EDT) Glucose 111 65 - 199 mg/dL [facility] Comment:Diabetes: >=200 mg/d L plus symptoms Blood Urea Nitrogen 12 10 - 20 mg/dL [facility] Creatinine 1.03 0.80 - 1.50 mg/dL [facility] Sodium 139 135 - 145 mmol/L [facility] Potassium 4.3 3.5 - 5.0 mmol/L [facility] Comment: Please note: ??Patients with WBC >100,000 may have falsely elevated Potassium levels. ??For accurate Potassium quantification in these patients send serum separator tube (gold top) for subsequent determinations. ??Contact the Clinical Chemistry Laboratory if there are any questions. Chloride 105 98 - 107 mmol/L [facility] Carbon Dioxide 25 22 - 31 mmol/L [facility] Anion Gap 9 5 - 15 mmol/L [facility] Calcium 8.5 8.5 - 10.5 mg/dL [facility] Protein, Total 5.7(L) 6.1 - 8.0 g/dL [facility] Albumin 3.1(L) 3.2 - 5.2 g/dL [facility] Aspartate Aminotransferase 44(H) 0 - 39 unit/L [facility] Alanine Aminotransferase 20 0 - 55 unit/L [facility] Alkaline Phosphatase 47 40 - 130 unit/L [facility] Bilirubin, Total 0.3 0.2 - 1.3 mg/dL [facility] Est Glomerular Filtration Rate 86 >=60 mL/min/1. 73 m?? [facility] Comment: This patient's estimated GFR was [...] and symptoms in addition to eGFR. Blood 07/27/2022 5:26 AM EDT 07/27/2022 5:31 AM EDT Narrative Resulting Agency Comment Spec In Lab Marco Dior MD CHEMISTRY ORDERABLES Performing Organization Address City/State/[facility] Co de Phone Number [facility] [place] [address] * (ABNORMAL) Differential, Automated (07/27/2022 12:37 AM EDT) Neutrophil % 84.3 % [facility] Neutrophil Absolute 8.52(H) 1.70 - 6.10 x10(3)/mc L [facility] Lymph % 9.1 % [facility] Lymphocytes Abs 0.9 0.9 - 3.2 x10(3)/mc L [facility] Monocyte % 6.2 % [facility] Monocyte Abs 0.6 0.3 - 0.9 x10(3)/mc L [facility] Eos % 0.0 % [facility] Eosinophils Abs 0.0 0.0 - 0.4 x10(3)/mc L [facility] Basophil % 0.1 % [facility] Baso Absolute 0.0 0.0 - 0.1 x10(3)/mc L [facility] Immature Gran % 0.30 % [facility] Comment: Immature granulocytes(IG's)percentage and absolute count will include metamyelocytes, myelocytes, and promyelocytes. Blood smears from CBCs yielding IG's will be scanned manually for concordance. If this scan disagrees with the automated IG or if promyelocytes are noted, a manual differential will be performed. Immature Gran Absolute 0.03 0.00 - 0.04 x10(3)/ L [facility] Blood 07/27/2022 12:3 7 AM EDT 07/27/2022 12:51 AM EDT Narrative Resulting Agency Comment Spec In Lab Edwin England MD HEMATOLOGY ORDERABLE S Performing Organization Address City/State/[facility] Co de Phone Number [facility] [place] [address] * (ABNORMAL) Hemogram (07/27/2022 12:37 AM EDT) White Blood Cell 10.1(H) 4.0 - 9.5 x10(3)/ L [facility] Red Blood Cell 3.42(L) 4.58 - 5.54 x10(6)/ L [facility] Hemoglobin 10.7(L) 13.7 - 16.5 g/dL [facility] Hematocrit 31.6(L) 40.5 - 48.5 % [facility] Mean Cell Volume 92.4 82.9 - 93.1 fL [facility] Mean Cell Hemoglobin 31.3 27.5 - 32.1 pg [facility] Mean Cell Hemoglobin Concentration 33.9 32.0 - 35.7 g/dL [facility] Platelet 99(L) 145 - 357 x10(3)/[facility] RDW Standard Deviation 50.4(H) 36.0 - 45.0 fL [facility] RDW coefficient of variation 15.0(H) 11.4 - 13.8 % [facility] Mean Platelet Volume 10.2 7.6 - 12.9 fL [facility] NRBC% auto 0.0 % [facility] NRBC Absolute 0.000 0.000 - 0.000 x10(3)/mc L [facility] Blood 07/27/2022 12:3 7 AM EDT 07/27/2022 12:51 AM EDT Narrative Resulting Agency Comment Spec In Lab Edwin England MD HEMATOLOGY ORDERABLE S [facility] [place] [address] * (ABNORMAL) Magnesium (07/27/2022 12:37 AM EDT) Magnesium 0.67(L) 0.69 - 1.07 mmol/L [facility] Blood 07/27/2022 12:3 7 AM EDT 07/27/2022 12:51 AM EDT Narrative Resulting Agency Comment Spec In Lab Marco Dior MD CHEMISTRY ORDERABLES Performing Organization Address City/[facility]/ZIP Co de Phone Number [facility] [address] * Phosphorus (07/27/2022 12:37 AM EDT) Phosphorus 2.8 2.5 - 4.5 mg/dL [facility] Blood 07/27/2022 12:3 7 AM EDT 07/27/2022 12:51 AM EDT Narrative Resulting Agency Comment Spec In Lab Marco Dior MD CHEMISTRY ORDERABLES Performing Organization Address [facility]/ZIP Co de Phone Number [facility] [place] [address] * (ABNORMAL) CK (07/27/2022 12:37 AM EDT) Creatine Kinase 1,266(H) 0 - 200 unit/L [facility] Blood 07/27/2022 12:3 7 AM EDT 07/27/2022 12:51 AM EDT Narrative Resulting Agency Comment Spec In Lab Marco Dior MD CHEMISTRY ORDERABLES Performing Organization Address [facility] Co de Phone Number [facility] [address] * (ABNORMAL) Fibrinogen (07/27/2022 12:37 AM EDT) Fibrinogen 533(H) 200 - 393 mg/dL [facility] Comment: A fibrinogen level >100 mg/dL is adequate for hemostasis in most patients without underlying bleeding disorders. Blood 07/27/2022 12:3 7 AM EDT 07/27/2022 12:51 AM EDT Narrative Resulting Agency Comment Spec In Lab Marco Dior MD HEMATOLOGY ORDERABLE S Performing Organization Address [facility] de Phone Number [facility] [address] * APTT (07/27/2022 12:37 AM EDT) Partial Thromboplastin Time 34 25 - 37 sec [facility] Comment: The PTT is NOT appropriate for heparin monitoring. Use the Anti-Xa level for heparin monitoring (HEP UFH) or LMWH monitoring (HEP LMW). A PTT less than 37 seconds generally indicates adequate hemostasis. Blood 07/27/2022 12:3 7 AM EDT 07/27/2022 12:51 AM EDT Narrative Resulting Agency Comment Spec In Lab Marco Dior MD HEMATOLOGY ORDERABLE S Performing Organization Address [facility] Co de Phone Number [facility] [place] [address] * (ABNORMAL) Comprehensive metabolic panel (non-fasting) (07/27/2022 12:37 AM EDT) Glucose 112 65 - 199 mg/dL [facility] Comment:Diabetes: >=200 mg/d L plus symptoms Blood Urea Nitrogen 12 10 - 20 mg/dL [facility] Creatinine 1.12 0.80 - 1.50 mg/dL [facility] Sodium 138 135 - 145 mmol/L [facility] Potassium 3.8 3.5 - 5.0 mmol/L [facility] Comment: Please note: ??Patients with WBC >100,000 may have falsely elevated Potassium levels. ??For accurate Potassium quantification in these patients send serum separator tube (gold top) for subsequent determinations. ??Contact the Clinical Chemistry Laboratory if there are any questions. Chloride 103 98 - 107 mmol/L [facility] Carbon Dioxide 24 22 - 31 mmol/L [facility] Anion Gap 11 5 - 15 mmol/L [facility] Calcium 8.5 8.5 - 10.5 mg/dL [facility] Protein, Total 5.6(L) 6.1 - 8.0 g/dL [facility] Albumin 3.1(L) 3.2 - 5.2 g/dL [facility] Aspartate Aminotransferase 47(H) 0 - 39 unit/L [facility] Alanine Aminotransferase 22 0 - 55 unit/L [facility] Alkaline Phosphatase 49 40 - 130 unit/L [facility] Bilirubin, Total 0.3 0.2 - 1.3 mg/dL [facility] Est Glomerular Filtration Rate 78 >=60 mL/min/1. 73 m?? [facility] Comment: This patient's estimated GFR was [...] and symptoms in addition to eGFR. Blood 07/27/2022 12:3 7 AM EDT 07/27/2022 12:51 AM EDT Narrative Resulting Agency Comment Spec In Lab Marco Dior MD CHEMISTRY ORDERABLES [facility] [place] [address] * Gold Tube HOLD (07/26/2022 5:35 PM EDT) [facility] Gold Hold Sample in lab. [facility] Blood Venous Draw / Unknown 07/26/2022 5:35 PM EDT 07/26/2022 5:43 PM EDT Edwin England MD CHEMISTRY ORDERABLES [facility] [place] [address] * (ABNORMAL) Differential, Automated (07/26/2022 5:35 PM EDT) [facility] Neutrophil % 89.3 % [facility] Neutrophil Absolute 8.32(H) 1.70 - 6.10 x10(3)/mc L [facility] Lymph % 6.2 % [facility] Lymphocytes Abs 0.6(L) 0.9 - 3.2 x10(3)/mc L [facility] Monocyte % 4.0 % [facility] Monocyte Abs 0.4 0.3 - 0.9 x10(3)/mc L [facility] Eos % 0.0 % [facility] Eosinophils Abs 0.0 0.0 - 0.4 x10(3)/mc L [facility] Basophil % 0.1 % [facility] Baso Absolute 0.0 0.0 - 0.1 x10(3)/mc L [facility] Immature Gran % 0.40 % [facility] Comment: Immature granulocytes(IG's)percentage and absolute count will include metamyelocytes, myelocytes, and promyelocytes. Blood smears from CBCs yielding IG's will be scanned manually for concordance. If this scan disagrees with the automated IG or if promyelocytes are noted, a manual differential will be performed. Immature Gran Absolute 0.04 0.00 - 0.04 x10(3)/mc L [facility] Blood 07/26/2022 5:35 PM EDT 07/26/2022 5:42 PM EDT Narrative Resulting Agency Comment Spec In Lab Edwin England MD HEMATOLOGY ORDERABLE S [facility] [address] * (ABNORMAL) Hemogram (07/26/2022 5:35 PM EDT) White Blood Cell 9.3 4.0 - 9.5 x10(3)/mc L [facility] Red Blood Cell 3.53(L) 4.58 - 5.54 x10(6)/mc L [facility] Hemoglobin 11.0(L) 13.7 - 16.5 g/dL [facility] Hematocrit 33.0(L) 40.5 - 48.5 % [facility] Mean Cell Volume 93.5(H) 82.9 - 93.1 fL [facility] Mean Cell Hemoglobin 31.2 27.5 - 32.1 pg [facility] Mean Cell Hemoglobin Concentration 33.3 32.0 - 35.7 g/dL [facility] Platelet 105(L) 145 - 357 x10(3)/mc L [facility] RDW Standard Deviation 51.6(H) 36.0 - 45.0 fL [facility] RDW coefficient of variation 14.9(H) 11.4 - 13.8 % [facility] Mean Platelet Volume 10.1 7.6 - 12.9 fL [facility] NRBC% auto 0.0 % [facility] NRBC Absolute 0.000 0.000 - 0.000 x10(3)/mc L [facility] Blood 07/26/2022 5:35 PM EDT 07/26/2022 5:42 PM EDT Narrative Resulting Agency Comment Spec In Lab Edwin England MD HEMATOLOGY ORDERABLE S [facility] [place] [address] * (ABNORMAL) CK (07/26/2022 5:35 PM EDT) Creatine Kinase 1,303(H) 0 - 200 unit/L [facility] Blood 07/26/2022 5:35 PM EDT 07/26/2022 5:42 PM EDT Narrative Resulting Agency Comment Spec In Lab Marco Dior MD CHEMISTRY ORDERABLES Performing Organization Address [facility] Co de Phone Number [facility] [place] [address] * (ABNORMAL) Fibrinogen (07/26/2022 5:35 PM EDT) Fibrinogen 486(H) 200 - 393 mg/dL [facility] Comment: A fibrinogen level >100 mg/dL is adequate for hemostasis in most patients without underlying bleeding disorders. Blood 07/26/2022 5:35 PM EDT 07/26/2022 5:42 PM EDT Narrative Resulting Agency Comment Spec In Lab Marco Dior MD HEMATOLOGY ORDERABLE S Performing Organization Address [facility] de Phone Number [facility] [place] [address] * APTT (07/26/2022 5:35 PM EDT) Partial Thromboplastin Time 35 25 - 37 sec [facility] Comment: The PTT is NOT appropriate for heparin monitoring. Use the Anti-Xa level for heparin monitoring (HEP UFH) or LMWH monitoring (HEP LMW). A PTT less than 37 seconds generally indicates adequate hemostasis. Blood 07/26/2022 5:35 PM EDT 07/26/2022 5:42 PM EDT Narrative Resulting Agency Comment Spec In Lab Marco Dior MD HEMATOLOGY ORDERABLE S Performing Organization Address [facility] Co de Phone Number [facility] [address] * (ABNORMAL) Comprehensive metabolic panel (non-fasting) (07/26/2022 5:35 PM EDT) Glucose 130 65 - 199 mg/dL [facility] Comment:Diabetes: >=200 mg/d L plus symptoms Blood Urea Nitrogen 11 10 - 20 mg/dL [facility] Creatinine 1.10 0.80 - 1.50 mg/dL [facility] Sodium 138 135 - 145 mmol/L [facility] Potassium 4.0 3.5 - 5.0 mmol/L [facility] Comment: Please note: ??Patients with WBC >100,000 may have falsely elevated Potassium levels. ??For accurate Potassium quantification in these patients send serum separator tube (gold top) for subsequent determinations. ??Contact the Clinical Chemistry Laboratory if there are any questions. Chloride 104 98 - 107 mmol/L [facility] Carbon Dioxide 24 22 - 31 mmol/L [facility] Anion Gap 10 5 - 15 mmol/L [facility] Calcium 8.4(L) 8.5 - 10.5 mg/dL [facility] Protein, Total 5.5(L) 6.1 - 8.0 g/dL [facility] Albumin 3.1(L) 3.2 - 5.2 g/dL [facility] Aspartate Aminotransferase 45(H) 0 - 39 unit/L [facility] Alanine Aminotransferase 23 0 - 55 unit/L [facility] Alkaline Phosphatase 47 40 - 130 unit/L [facility] Bilirubin, Total 0.3 0.2 - 1.3 mg/dL [facility] Est Glomerular Filtration Rate 80 >=60 mL/min/1. 73 m?? [facility] Comment: This patient's estimated GFR was [...] and symptoms in addition to eGFR. Blood 07/26/2022 5:35 PM EDT 07/26/2022 5:42 PM EDT Narrative Resulting Agency Comment Spec In Lab Marco Dior MD CHEMISTRY ORDERABLES [facility] [place] [address] * Gold Tube HOLD (07/26/2022 11:55 AM EDT) Gold Hold Sample in lab. [facility] Blood Venous Draw / Unknown 07/26/2022 11:55 AM EDT 07/26/2022 12:12 PM EDT Edwin England MD CHEMISTRY ORDERABLES Performing Organization Address City/[facility]/[place] [address] * (ABNORMAL) Differential, Automated (07/26/2022 11:55 AM EDT) [facility] Neutrophil % 87.1 % [facility] Neutrophil Absolute 7.48(H) 1.70 - 6.10 x10(3)/mc L [facility] Lymph % 7.4 % [facility] Lymphocytes Abs 0.6(L) 0.9 - 3.2 x10(3)/mc L [facility] Monocyte % 5.2 % [facility] Monocyte Abs 0.4 0.3 - 0.9 x10(3)/mc L [facility] Eos % 0.0 % [facility] Eosinophils Abs 0.0 0.0 - 0.4 x10(3)/mc L [facility] Basophil % 0.1 % [facility] Baso Absolute 0.0 0.0 - 0.1 x10(3)/mc L [facility] Immature Gran % 0.20 % [facility] Comment: Immature granulocytes(IG's)percentage and absolute count will include metamyelocytes, myelocytes, and promyelocytes. Blood smears from CBCs yielding IG's will be scanned manually for concordance. If this scan disagrees with the automated IG or if promyelocytes are noted, a manual differential will be performed. Immature Gran Absolute 0.02 0.00 - 0.04 x10(3)/mc L [facility] Blood 07/26/2022 11:5 5 AM EDT 07/26/2022 12:11 PM EDT Narrative Resulting Agency Comment Spec In Lab Edwin England MD HEMATOLOGY ORDERABLE S [facility] [place] [address] * (ABNORMAL) Hemogram (07/26/2022 11:55 AM EDT) White Blood Cell 8.6 4.0 - 9.5 x10(3)/mc L [facility] Red Blood Cell 3.58(L) 4.58 - 5.54 x10(6)/mc L [facility] Hemoglobin 11.1(L) 13.7 - 16.5 g/dL [facility] Hematocrit 33.1(L) 40.5 - 48.5 % [facility] Mean Cell Volume 92.5 82.9 - 93.1 fL [facility] Mean Cell Hemoglobin 31.0 27.5 - 32.1 pg [facility] Mean Cell Hemoglobin Concentration 33.5 32.0 - 35.7 g/dL [facility] Platelet 105(L) 145 - 357 x10(3)/mc L [facility] RDW Standard Deviation 49.8(H) 36.0 - 45.0 fL [facility] RDW coefficient of variation 14.8(H) 11.4 - 13.8 % [facility] Mean Platelet Volume 10.4 7.6 - 12.9 fL [facility] NRBC% auto 0.0 % [facility] NRBC Absolute 0.000 0.000 - 0.000 x10(3)/ L [facility] Blood 07/26/2022 11:5 5 AM EDT 07/26/2022 12:11 PM EDT Narrative Resulting Agency Comment Spec In Lab Edwin England MD HEMATOLOGY ORDERABLE S [facility] [place] [address] * (ABNORMAL) CK (07/26/2022 11:55 AM EDT) Creatine Kinase 1,090(H) 0 - 200 unit/L [facility] Blood 07/26/2022 11:5 5 AM EDT 07/26/2022 12:11 PM EDT Narrative Resulting Agency Comment Spec In Lab Marco Dior MD CHEMISTRY ORDERABLES Performing Organization Address [facility] Co de Phone Number [facility] [place] [address] * (ABNORMAL) Fibrinogen (07/26/2022 11:55 AM EDT) Fibrinogen 421(H) 200 - 393 mg/dL [facility] Comment: A fibrinogen level >100 mg/dL is adequate for hemostasis in most patients without underlying bleeding disorders. Blood 07/26/2022 11:5 5 AM EDT 07/26/2022 12:11 PM EDT Narrative Resulting Agency Comment Spec In Lab Marco Dior MD HEMATOLOGY ORDERABLE S Performing Organization Address [facility] Co de Phone Number [facility] [place] [address] * APTT (07/26/2022 11:55 AM EDT) Partial Thromboplastin Time 34 25 - 37 sec [facility] Comment: The PTT is NOT appropriate for heparin monitoring. Use the Anti-Xa level for heparin monitoring (HEP UFH) or LMWH monitoring (HEP LMW). A PTT less than 37 seconds generally indicates adequate hemostasis. Blood 07/26/2022 11:5 5 AM EDT 07/26/2022 12:11 PM EDT Narrative Resulting Agency Comment Spec In Lab Marco Dior MD HEMATOLOGY ORDERABLE S Performing Organization Address City/[facility] Co de Phone Number [facility] [place] [address] * (ABNORMAL) Comprehensive metabolic panel (non-fasting) (07/26/2022 11:55 AM EDT) Glucose 132 65 - 199 mg/dL [facility] Comment:Diabetes: >=200 mg/d L plus symptoms Blood Urea Nitrogen 11 10 - 20 mg/dL [facility] Creatinine 0.98 0.80 - 1.50 mg/dL [facility] Sodium 136 135 - 145 mmol/L [facility] Potassium 4.2 3.5 - 5.0 mmol/L [facility] Comment: Please note: ??Patients with WBC >100,000 may have falsely elevated Potassium levels. ??For accurate Potassium quantification in these patients send serum separator tube (gold top) for subsequent determinations. ??Contact the Clinical Chemistry Laboratory if there are any questions. Chloride 103 98 - 107 mmol/L [facility] Carbon Dioxide 23 22 - 31 mmol/L [facility] Anion Gap 10 5 - 15 mmol/L [facility] Calcium 7.9(L) 8.5 - 10.5 mg/dL [facility] Protein, Total 5.2(L) 6.1 - 8.0 g/dL [facility] Albumin 3.1(L) 3.2 - 5.2 g/dL [facility] Aspartate Aminotransferase Not Perf 0 - 39 [facility] Comment: Unable to quantitate due to sample hemolysis. ??Sample redraw suggested. Called by: YC, Read back by: ??Miladys King, Date/Time:07/26/22 13:56. Alanine Aminotransferase 22 0 - 55 unit/L [facility] Alkaline Phosphatase 47 40 - 130 unit/L [facility] Bilirubin, Total 0.4 0.2 - 1.3 mg/dL [facility] Est Glomerular Filtration Rate 92 >=60 mL/min/1. 73 m?? [facility] Comment: This patient's estimated GFR was [...] and symptoms in addition to eGFR. Blood 07/26/2022 11:5 5 AM EDT 07/26/2022 12:11 PM EDT Narrative Resulting Agency Comment Spec In Lab Marco Dior [place] [address] * (ABNORMAL) Differential, Automated (07/26/2022 10:30 AM EDT) Neutrophil % 80.5 % [facility] Neutrophil Absolute 7.98(H) 1.70 - 6.10 x10(3)/ L [facility] Lymph % 14.0 % [facility] Lymphocytes Abs 1.4 0.9 - 3.2 x10(3)/ L [facility] Monocyte % 4.9 % [facility] Monocyte Abs 0.5 0.3 - 0.9 x10(3)/[facility] Eos % 0.1 % [facility] Eosinophils Abs 0.0 0.0 - 0.4 x10(3)/[facility] Basophil % 0.1 % [facility] Baso Absolute 0.0 0.0 - 0.1 x10(3)/[facility] Immature Gran % 0.40 % [facility] Comment: Immature granulocytes(IG's)percentage and absolute count will include metamyelocytes, myelocytes, and promyelocytes. Blood smears from CBCs yielding IG's will be scanned manually for concordance. If this scan disagrees with the automated IG or if promyelocytes are noted, a manual differential will be performed. Immature Gran Absolute 0.04 0.00 - 0.04 x10(3)/ L [facility] Blood 07/26/2022 10:3 0 AM EDT 07/26/2022 10:46 AM EDT Narrative Resulting Agency Comment Spec In Lab Edwin England [place] [address] * (ABNORMAL) Hemogram (07/26/2022 10:30 AM EDT) White Blood Cell 9.9(H) 4.0 - 9.5 x10(3)/ L [facility] Red Blood Cell 3.91(L) 4.58 - 5.54 x10(6)/[facility] Hemoglobin 12.2(L) 13.7 - 16.5 g/dL [facility] Hematocrit 36.3(L) 40.5 - 48.5 % [facility] Mean Cell Volume 92.8 82.9 - 93.1 fL [facility] Mean Cell Hemoglobin 31.2 27.5 - 32.1 pg [facility] Mean Cell Hemoglobin Concentration 33.6 32.0 - 35.7 g/dL [facility] Platelet 108(L) 145 - 357 x10(3)/mc L [facility] RDW Standard Deviation 50.6(H) 36.0 - 45.0 fL [facility] RDW coefficient of variation 14.8(H) 11.4 - 13.8 % [facility] Mean Platelet Volume 10.5 7.6 - 12.9 fL [facility] NRBC% auto 0.0 % [facility] NRBC Absolute 0.000 0.000 - 0.000 x10(3)/mc L [facility] Blood 07/26/2022 10:3 0 AM EDT 07/26/2022 10:46 AM EDT Narrative Resulting Agency Comment Spec In Lab Edwin England MD HEMATOLOGY ORDERABLE S [facility] [address] * (ABNORMAL) Fibrinogen (07/26/2022 10:30 AM EDT) Fibrinogen 438(H) 200 - 393 mg/dL [facility] Comment: A fibrinogen level >100 mg/dL is adequate for hemostasis in most patients without underlying bleeding disorders. Blood 07/26/2022 10:3 0 AM EDT 07/26/2022 10:46 AM EDT Narrative Resulting Agency Comment Spec In Lab Marco Dior MD HEMATOLOGY ORDERABLE S Performing Organization Address City/[facility]/ZIP Co de Phone Number [facility] [place] [address] * APTT (07/26/2022 10:30 AM EDT) Partial Thromboplastin Time 35 25 - 37 sec [facility] Comment: The PTT is NOT appropriate for heparin monitoring. Use the Anti-Xa level for heparin monitoring (HEP UFH) or LMWH monitoring (HEP LMW). A PTT less than 37 seconds generally indicates adequate hemostasis. Blood 07/26/2022 10:3 0 AM EDT 07/26/2022 10:46 AM EDT Narrative Resulting Agency Comment Spec In Lab Marco Dior MD HEMATOLOGY ORDERABLE S Performing Organization Address [facility] de Phone Number [facility] [place] [address] * (ABNORMAL) Prothrombin Time (07/26/2022 10:30 AM EDT) Prothrombin Time 13.3(H) 9.4 - 12.5 sec [facility] International Normalization Ratio 1.2 [facility] Comment: An INR <2.0 indicates adequate procoagulant activity for hemostasis in most patients without underlying bleeding disorders, though the INR may not adequately reflect hemostatic capacity in patients with liver disease and synthetic impairment. The recommended target INR range for therapeutic anticoagulation is 2.0 ? 3.0 for most applications, though lower and higher ranges may be appropriate depending on clinical circumstances. Blood 07/26/2022 10:3 0 AM EDT 07/26/2022 10:46 AM EDT Narrative Resulting Agency Comment Spec In Lab Marco Dior MD HEMATOLOGY ORDERABLE S Performing Organization Address [facility] Co de Phone Number [facility] [place] [address] * (ABNORMAL) CK (07/26/2022 10:30 AM EDT) Creatine Kinase 1,139(H) 0 - 200 unit/L [facility] Blood 07/26/2022 10:3 0 AM EDT 07/26/2022 10:46 AM EDT Narrative Resulting Agency Comment Spec In Lab Marco Dior MD CHEMISTRY ORDERABLES [facility] [place] [address] * (ABNORMAL) Comprehensive metabolic panel (non-fasting) (07/26/2022 10:30 AM EDT) Glucose 132 65 - 199 mg/dL [facility] Comment:Diabetes: >=200 mg/d L plus symptoms Blood Urea Nitrogen 11 10 - 20 mg/dL [facility] Creatinine 0.96 0.80 - 1.50 mg/dL [facility] Sodium 136 135 - 145 mmol/L [facility] Potassium 4.0 3.5 - 5.0 mmol/L [facility] Comment: Please note: ??Patients with WBC >100,000 may have falsely elevated Potassium levels. ??For accurate Potassium quantification in these patients send serum separator tube (gold top) for subsequent determinations. ??Contact the Clinical Chemistry Laboratory if there are any questions. Chloride 104 98 - 107 mmol/L [facility] Carbon Dioxide 22 22 - 31 mmol/L [facility] Anion Gap 10 5 - 15 mmol/L [facility] Calcium 8.2(L) 8.5 - 10.5 mg/dL [facility] Protein, Total 5.6(L) 6.1 - 8.0 g/dL [facility] Albumin 3.3 3.2 - 5.2 g/dL [facility] Aspartate Aminotransferase Not Perf 0 - 39 [facility] Comment: Unable to quantitate due to sample hemolysis. ??Sample redraw suggested. Called by: SULY, Read back by: Miladys King, Date/Time:07/26/22 11:28. Alanine Aminotransferase 25 0 - 55 unit/L [facility] Alkaline Phosphatase 53 40 - 130 unit/L [facility] Bilirubin, Total 0.5 0.2 - 1.3 mg/dL [facility] Est Glomerular Filtration Rate 94 >=60 mL/min/1. 73 m?? [facility] Comment: This patient's estimated GFR was [...] and symptoms in addition to eGFR. Blood 07/26/2022 10:3 0 AM EDT 07/26/2022 10:46 AM EDT Narrative Resulting Agency Comment Spec In Lab Marco Dior MD CHEMISTRY ORDERABLES [facility] [address] * (ABNORMAL) BLOOD GAS 2 ARTERIAL (07/26/2022 10:29 AM EDT) pH, Arterial 7.35 7.35 - 7.45 [facility] PCO2, Arterial 43 35 - 45 mmHg [facility] PO2, Arterial 64(L) 85 - 104 mmHg [facility] Bicarbonate, Arterial 23.4 20.0 - 26.0 mmol/L [facility] Base Excess, Arterial -2.3 -3.0 - 3.0 mmol/L [facility] Hgb Blood Gas 13.3(L) 13.7 - 16.5 g/dL [facility] Oxyhemoglobin, Arterial 90.9(L) 94.0 - 97.0 % [facility] Carboxyhemoglob in, Arterial 0.2 % [facility] Comment: Nonsmokers: 0.5-1.5% COHB Smokers: Variable, but usually less than 10% Toxic: 20-30% COHB Lethal: Greater than 60% COHB Methemoglobin, Arterial 0.5 <=1.5 % [facility] Na Whole Blood 135 135 - 145 mmol/L [facility] K Whole Blood 3.8 3.5 - 5.0 mmol/L [facility] Comment: Please note: Patients with WBC >100,000 may have falsely elevated Potassium levels. Contact the Clinical Chemistry Laboratory if there are any questions. ICa Whole Blood 1.12(L) 1.15 - 1.33 mmol/L [facility] Comment: Note: ??Total bilirubin higher than 20 mg/dL may lead to falsely low ionized calcium. CL Whole Blood 104 98 - 107 mmol/L [facility] Gluc Whole Bld 127 65 - 199 mg/dL [facility] Comment:Diabetes: >=200 mg/d L plus symptoms. Lactate WB 1.8 0.5 - 2.2 mmol/L [facility] Flow Art 6.0 LPM [facility] Blood 07/26/2022 10:2 9 AM EDT 07/26/2022 10:29 AM EDT Marco Dior MD POINT OF CARE TEST O RDERABLES [facility] [address] [place] [address] * (ABNORMAL) BLOOD GAS 2 ARTERIAL (07/26/2022 8:12 AM EDT) pH, Arterial 7.38 7.35 - 7.45 [facility] PCO2, Arterial 37 35 - 45 mmHg [facility] PO2, Arterial 100 85 - 104 mmHg [facility] Bicarbonate, Arterial 21.5 20.0 - 26.0 mmol/L [facility] Base Excess, Arterial -3.6(L) -3.0 - 3.0 mmol/L [facility] Hgb Blood Gas 12.2(L) 13.7 - 16.5 g/dL [facility] Oxyhemoglobin, Arterial 96.3 94.0 - 97.0 % [facility] Carboxyhemoglob in, Arterial 1.3 % [facility] Comment: Nonsmokers: 0.5-1.5% COHB Smokers: Variable, but usually less than 10% Toxic: 20-30% COHB Lethal: Greater than 60% COHB Methemoglobin, Arterial 0.3 <=1.5 % [facility] Na Whole Blood 134(L) 135 - 145 mmol/L [facility] K Whole Blood 3.8 3.5 - 5.0 mmol/L [facility] Comment: Please note: Patients with WBC >100,000 may have falsely elevated Potassium levels. Contact the Clinical Chemistry Laboratory if there are any questions. ICa Whole Blood 1.10(L) 1.15 - 1.33 mmol/L [facility] Comment: Note: ??Total bilirubin higher than 20 mg/dL may lead to falsely low ionized calcium. CL Whole Blood 102 98 - 107 mmol/L [facility] Gluc Whole Bld 109 65 - 199 mg/dL [facility] Comment:Diabetes: >=200 mg/d L plus symptoms. 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 * ??Oligemia of distal LEFT foot arteries. * ??Soft tissue inflammatory changes about the aorta at the level of the graft, likely postsurgical sequela; no active extravasation seen. * ??Moderately large portion of devascularization of the LEFT kidney anteriorly. * ??Small amount of perisplenic hemorrhage/hemoperitoneum. * ??Small to moderate volume pneumoperitoneum, likely postsurgical. * ??Partially imaged trace pleural effusions and moderate dependent atelectasis/consolidations. * ??Urinary bladder wall thickening; correlate for any concern of cystitis. Thank you for letting us participate in the care of this patient. ??If you are a health care provider and have any questions regarding this report, please contact the number below. ??For patients who have questions please contact the health daycare teacher that requested your imaging first. ? Electronically signed by: Durga Lundberg MD, [facility] ([phone]), at 07/26/2022 7:58 AM Narrative 07/26/2022 7:58 AM EDT EXAMINATION: CT ANGIOGRAM AORTA LOWER EXTREMITY RUNOFF CLINICAL HISTORY: loss of pulses LLE ? area of occlusion TECHNIQUE: Aorto-arterial CT angiogram of the abdomen, pelvis, and bilateral lower extremities was performed following the intravenous administration of contrast Administered 149.0 ml of OMNIPAQUE 350.00 mg/ml). Maximum intensity projection (MIP) were reformatted. Absence of enteric contrast renders suboptimal assessment of bowel wall/lumen and surrounding soft tissue structures/viscera. 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 Bypass graft the infrarenal aorta to the bilateral BAND MASTER bifurcations; LEFT limb of the graft from the bifurcation is completely occluded from just beyond the origin. Celiac axis: Patent. SMA: Patent. Right renal artery: Patent. Left renal artery: Patent. SRINIVASAN: Patent via prominent collateral in the LEFT hemiabdomen from the SMA. RIGHT LOWER EXTREMITY ARTERIES Common iliac artery: Occluded, bypassed. Internal iliac artery: Occluded. External iliac artery: Occluded, bypassed. Common femoral artery: Occluded, bypassed. Profundus femoral artery: Patent. Superficial femoral artery: Patent. Popliteal artery: Patent. Anterior tibial artery: Patent. Tibio-peroneal trunk: Patent. Posterior tibial artery: Patent. Peroneal artery: Patent. Dorsalis pedis: Patent. Plantar arteries: Patent. LEFT LOWER EXTREMITY ARTERIES Common iliac artery: Occluded, bypassed. Internal iliac artery: Occluded. External iliac artery: Occluded, bypassed. Common femoral artery: Occluded, bypassed. Profundus femoral artery: Patent other than occlusion at the origin. Superficial femoral artery: Patent other than occlusion at the origin. Popliteal artery: Patent. Mild narrowing proximally. Anterior tibial artery: Patent. Tibio-peroneal trunk: Patent. Posterior tibial artery: Patent. Peroneal artery: Patent. Dorsalis pedis: Patent although oligemia distally. Plantar arteries: Patent although oligemia distally. NON-VASCULAR FINDINGS Included Lower Chest: Partially imaged trace pleural effusions and moderate dependent atelectasis/consolidations. Liver: Unremarkable. Gallbladder: Contains vicariously excreted intravenous contrast. Spleen: Heterogeneous enhancement secondary to phase of contrast precluding assessment. Pancreas: Unremarkable. Adrenal Glands: Unremarkable. RIGHT Kidney: Unremarkable. LEFT Kidney: Devascularized anteriorly. Urinary Bladder: Wall thickening, despite predominantly being collapsed about a transurethral catheter. GI: Esophagogastric tube terminates within the distal aspect of the second portion of the duodenum. Noninflamed colonic diverticula, predominantly involving the sigmoid colon. Mesentery/Peritoneum: Scattered small to moderate pneumoperitoneum. Small amount of high density fluid in the LEFT subdiaphragmatic/perisplenic region. Soft tissue changes, fluid, and air surrounding the aorta at the level of the bypass graft, likely postsurgical changes. Small amount of scattered free fluid. External Soft Tissues: Midline abdominal cutaneous helga. Small foci of subcutaneous air along the lower anterior abdominal wall as well as in the bilateral inguinal regions Osseous Structures: No acute abnormality identified. Procedure Note Durga Lundberg MD - 07/26/2022 EXAMINATION: CT ANGIOGRAM AORTA LOWER EXTREMITY RUNOFF CLINICAL HISTORY: loss of pulses LLE ? area of occlusion TECHNIQUE: Aorto-arterial CT angiogram of the abdomen, pelvis, andbilateral lower extremities was performed following the intravenous administrationof contrast Administered 149.0 ml of OMNIPAQUE 350.00 mg/ml). Maximumintensity projection (MIP) were reformatted. Absence of enteric contrast renders suboptimal assessment of bowel wall/lumen and surrounding soft tissue structures/viscera. 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 Bypass graft the infrarenal aorta to the bilateralCFA bifurcations; LEFT limb of the graft from the bifurcation is completelyoccluded from just beyond the origin. Celiac axis: Patent. SMA: Patent. Right renal artery: Patent. Left renal artery: Patent. SRINIVASAN: Patent via prominent collateral in the LEFT hemiabdomen from theSMA. RIGHT LOWER EXTREMITY ARTERIES Common iliac artery: Occluded, bypassed. Internal iliac artery: Occluded. External iliac artery: Occluded, bypassed. Common femoral artery: Occluded, bypassed. Profundus femoral artery: Patent. Superficial femoral artery: Patent. Popliteal artery: Patent. Anterior tibial artery: Patent. Tibio-peroneal trunk: Patent. Posterior tibial artery: Patent. Peroneal artery: Patent. Dorsalis pedis: Patent. Plantar arteries: Patent. LEFT LOWER EXTREMITY ARTERIES Common iliac artery: Occluded, bypassed. Internal iliac artery: Occluded. External iliac artery: Occluded, bypassed. Common femoral artery: Occluded, bypassed. Profundus femoral artery: Patent other than occlusion at the origin. Superficial femoral artery: Patent other than occlusion at the origin. Popliteal artery: Patent. Mild narrowing proximally. Anterior tibial artery: Patent. Tibio-peroneal trunk: Patent. Posterior tibial artery: Patent. Peroneal artery: Patent. Dorsalis pedis: Patent although oligemia distally. Plantar arteries: Patent although oligemia distally. NON-VASCULAR FINDINGS Included Lower Chest: Partially imaged trace pleural effusions andmoderate dependent atelectasis/consolidations. Liver: Unremarkable. Gallbladder: Contains vicariously excreted intravenous contrast. Spleen: Heterogeneous enhancement secondary to phase of contrastprecluding assessment. Pancreas: Unremarkable. Adrenal Glands: Unremarkable. RIGHT Kidney: Unremarkable. LEFT Kidney: Devascularized anteriorly. Urinary Bladder: Wall thickening, despite predominantly being collapsedabout a transurethral catheter. GI: Esophagogastric tube terminates within the distal aspect of thesecond portion of the duodenum. Noninflamed colonic diverticula, predominantly involving the sigmoid colon. Mesentery/Peritoneum: Scattered small to moderate pneumoperitoneum. Smallamount of high density fluid in the LEFT subdiaphragmatic/perisplenic region.Soft tissue changes, fluid, and air surrounding the aorta at the level of thebypass graft, likely postsurgical changes. Small amount of scattered freefluid. External Soft Tissues: Midline abdominal cutaneous helga. Small fociof subcutaneous air along the lower anterior abdominal wall as well as inthe bilateral inguinal regions Osseous Structures: No acute abnormality identified. 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 * Oligemia of distal LEFT foot arteries. * Soft tissue inflammatory changes about the aorta at the level of thegraft, likely postsurgical sequela; no active extravasation seen. * Moderately large portion of devascularization of the LEFT kidneyanteriorly. * Small amount of perisplenic hemorrhage/hemoperitoneum. * Small to moderate volume pneumoperitoneum, likely postsurgical. * Partially imaged trace pleural effusions and moderate dependent atelectasis/consolidations. * Urinary bladder wall thickening; correlate for any concern ofcystitis. Thank you for letting us participate in the care of this patient. If youare a health care provider and have any questions regarding this report,please contact the number below. For patients who have questions please contactthe health daycare teacher that requested your imaging first. Marco Dior MD IMG CT ORDERABLES * (ABNORMAL) BLOOD GAS 2 ARTERIAL (07/26/2022 4:10 AM EDT) pH, Arterial 7.44 7.35 - 7.45 [facility] PCO2, Arterial 38 35 - 45 mmHg [facility] PO2, Arterial 65(L) 85 - 104 mmHg [facility] Bicarbonate, Arterial 25.1 20.0 - 26.0 mmol/L [facility] Base Excess, Arterial 0.9 -3.0 - 3.0 mmol/L [facility] Hgb Blood Gas 13.4(L) 13.7 - 16.5 g/dL [facility] Oxyhemoglobin, Arterial 92.4(L) 94.0 - 97.0 % [facility] Carboxyhemoglob in, Arterial 0.1 % [facility] Comment: Nonsmokers: 0.5-1.5% COHB Smokers: Variable, but usually less than 10% Toxic: 20-30% COHB Lethal: Greater than 60% COHB Methemoglobin, Arterial 0.6 <=1.5 % [facility] Na Whole Blood 135 135 - 145 mmol/L [facility] K Whole Blood 3.7 3.5 - 5.0 mmol/L [facility] Comment: Please note: Patients with WBC >100,000 may have falsely elevated Potassium levels. Contact the Clinical Chemistry Laboratory if there are any questions. ICa Whole Blood 1.13(L) 1.15 - 1.33 mmol/L [facility] Comment: Note: ??Total bilirubin higher than 20 mg/dL may lead to falsely low ionized calcium. CL Whole Blood 104 98 - 107 mmol/L [facility] Gluc Whole Bld 130 65 - 199 mg/dL [facility] Comment:Diabetes: >=200 mg/d L plus symptoms. Lactate WB 1.3 0.5 - 2.2 mmol/L [facility] Flow Art 6.0 LPM [facility] Blood 07/26/2022 4:10 AM EDT 07/26/2022 4:10 AM EDT Marco Dior MD POINT OF CARE TEST O RDERABLES [facility] [place] [address] * (ABNORMAL) Differential, Automated (07/26/2022 2:10 AM EDT) Neutrophil % 83.2 % [facility] Neutrophil Absolute 6.48(H) 1.70 - 6.10 x10(3)/mc L [facility] Lymph % 10.4 % [facility] Lymphocytes Abs 0.8(L) 0.9 - 3.2 x10(3)/mc L [facility] Monocyte % 6.0 % [facility] Monocyte Abs 0.5 0.3 - 0.9 x10(3)/mc L [facility] Eos % 0.0 % [facility] Eosinophils Abs 0.0 0.0 - 0.4 x10(3)/mc L [facility] Basophil % 0.0 % [facility] Baso Absolute 0.0 0.0 - 0.1 x10(3)/mc L [facility] Immature Gran % 0.40 % [facility] Comment: Immature granulocytes(IG's)percentage and absolute count will include metamyelocytes, myelocytes, and promyelocytes. Blood smears from CBCs yielding IG's will be scanned manually for concordance. If this scan disagrees with the automated IG or if promyelocytes are noted, a manual differential will be performed. Immature Gran Absolute 0.03 0.00 - 0.04 x10(3)/mc L [facility] Blood 07/26/2022 2:10 AM EDT 07/26/2022 2:31 AM EDT Narrative Resulting Agency Comment Spec In Lab Edwin England MD HEMATOLOGY ORDERABLE S [facility] [address] * (ABNORMAL) Hemogram (07/26/2022 2:10 AM EDT) White Blood Cell 7.8 4.0 - 9.5 x10(3)/mc L [facility] Red Blood Cell 3.95(L) 4.58 - 5.54 x10(6)/mc L [facility] Hemoglobin 12.4(L) 13.7 - 16.5 g/dL [facility] Hematocrit 36.3(L) 40.5 - 48.5 % [facility] Mean Cell Volume 91.9 82.9 - 93.1 fL [facility] Mean Cell Hemoglobin 31.4 27.5 - 32.1 pg [facility] Mean Cell Hemoglobin Concentration 34.2 32.0 - 35.7 g/dL [facility] Platelet 111(L) 145 - 357 x10(3)/mc L [facility] RDW Standard Deviation 49.3(H) 36.0 - 45.0 fL [facility] RDW coefficient of variation 14.6(H) 11.4 - 13.8 % [facility] Mean Platelet Volume 9.9 7.6 - 12.9 fL [facility] NRBC% auto 0.0 % [facility] NRBC Absolute 0.000 0.000 - 0.000 x10(3)/mc L [facility] Blood 07/26/2022 2:10 AM EDT 07/26/2022 2:31 AM EDT Narrative Resulting Agency Comment Spec In Lab Edwin England MD HEMATOLOGY ORDERABLE S Performing Organization Address City/[facility]/ZIP Co de Phone Number [facility] [address] * Magnesium (07/26/2022 2:10 AM EDT) Magnesium 0.73 0.69 - 1.07 mmol/L [facility] Blood 07/26/2022 2:10 AM EDT 07/26/2022 2:31 AM EDT Narrative Resulting Agency Comment Spec In Lab Marco Dior MD CHEMISTRY ORDERABLES Performing Organization Address [facility] de Phone Number [facility] [address] * (ABNORMAL) CK (07/26/2022 2:10 AM EDT) Pathologist [facility] Creatine Kinase 833(H) 0 - 200 unit/L [facility] Blood 07/26/2022 2:10 AM EDT 07/26/2022 2:31 AM EDT Narrative Resulting Agency Comment Spec In Lab Marco Dior MD CHEMISTRY ORDERABLES Performing Organization Address [facility] de Phone Number [facility] [address] * Fibrinogen (07/26/2022 2:10 AM EDT) Pathologist [facility] Fibrinogen 388 200 - 393 mg/dL [facility] Comment: A fibrinogen level >100 mg/dL is adequate for hemostasis in most patients without underlying bleeding disorders. Blood 07/26/2022 2:10 AM EDT 07/26/2022 2:31 AM EDT Narrative Resulting Agency Comment Spec In Lab Marco Dior MD HEMATOLOGY ORDERABLE S Performing Organization Address [facility] Co de Phone Number [facility] [address] * APTT (07/26/2022 2:10 AM EDT) Pathologist [facility] Partial Thromboplastin Time 32 25 - 37 sec [facility] Comment: The PTT is NOT appropriate for heparin monitoring. Use the Anti-Xa level for heparin monitoring (HEP UFH) or LMWH monitoring (HEP LMW). A PTT less than 37 seconds generally indicates adequate hemostasis. Blood 07/26/2022 2:10 AM EDT 07/26/2022 2:31 AM EDT Narrative Resulting Agency Comment Spec In Lab Marco Dior MD HEMATOLOGY ORDERABLE S [facility] [address] * (ABNORMAL) Comprehensive metabolic panel (non-fasting) (07/26/2022 2:10 AM EDT) Glucose 145 65 - 199 mg/dL [facility] Comment:Diabetes: >=200 mg/d L plus symptoms Blood Urea Nitrogen 12 10 - 20 mg/dL [facility] Creatinine 0.99 0.80 - 1.50 mg/dL [facility] Sodium 139 135 - 145 mmol/L [facility] Potassium 4.2 3.5 - 5.0 mmol/L [facility] Comment: Please note: ??Patients with WBC >100,000 may have falsely elevated Potassium levels. ??For accurate Potassium quantification in these patients send serum separator tube (gold top) for subsequent determinations. ??Contact the Clinical Chemistry Laboratory if there are any questions. Chloride 105 98 - 107 mmol/L [facility] Carbon Dioxide 24 22 - 31 mmol/L [facility] Anion Gap 10 5 - 15 mmol/L [facility] Calcium 8.4(L) 8.5 - 10.5 mg/dL [facility] Protein, Total 5.6(L) 6.1 - 8.0 g/dL [facility] Albumin 3.3 3.2 - 5.2 g/dL [facility] Aspartate Aminotransferase 49(H) 0 - 39 unit/L [facility] Alanine Aminotransferase 24 0 - 55 unit/L [facility] Alkaline Phosphatase 53 40 - 130 unit/L [facility] Bilirubin, Total 0.3 0.2 - 1.3 mg/dL [facility] Est Glomerular Filtration Rate 91 >=60 mL/min/1. 73 m?? [facility] Comment: This patient's estimated GFR was [...] and symptoms in addition to eGFR. Blood 07/26/2022 2:10 AM EDT 07/26/2022 2:31 AM EDT Narrative Resulting Agency Comment Spec In Lab Marco Dior MD CHEMISTRY ORDERABLES Performing Organization Address [facility] Co de Phone Number [facility] [address] * Electrolytes panel (07/26/2022 2:10 AM EDT) Sodium 139 135 - 145 mmol/L [facility] Potassium 4.2 3.5 - 5.0 mmol/L [facility] Comment: Please note: ??Patients with WBC >100,000 may have falsely elevated Potassium levels. ??For accurate Potassium quantification in these patients send serum separator tube (gold top) for subsequent determinations. ??Contact the Clinical Chemistry Laboratory if there are any questions. Chloride 105 98 - 107 mmol/L [facility] Carbon Dioxide 24 22 - 31 mmol/L [facility] Anion Gap 10 5 - 15 mmol/L [facility] Blood 07/26/2022 2:10 AM EDT 07/26/2022 2:31 AM EDT Narrative Resulting Agency Comment Spec In Lab Marco Dior MD CHEMISTRY ORDERABLES Performing Organization Address [facility] Co de Phone Number [facility] [address] * (ABNORMAL) BLOOD GAS 2 ARTERIAL (07/26/2022 2:08 AM EDT) pH, Arterial 7.42 7.35 - 7.45 [facility] PCO2, Arterial 37 35 - 45 mmHg [facility] PO2, Arterial 71(L) 85 - 104 mmHg [facility] Bicarbonate, Arterial 23.3 20.0 - 26.0 mmol/L [facility] Base Excess, Arterial -1.2 -3.0 - 3.0 mmol/L [facility] Hgb Blood Gas 13.5(L) 13.7 - 16.5 g/dL [facility] Oxyhemoglobin, Arterial 93.6(L) 94.0 - 97.0 % [facility] Carboxyhemoglob in, Arterial 0.3 % [facility] Comment: Nonsmokers: 0.5-1.5% COHB Smokers: Variable, but usually less than 10% Toxic: 20-30% COHB Lethal: Greater than 60% COHB Methemoglobin, Arterial 0.7 <=1.5 % [facility] Na Whole Blood 136 135 - 145 mmol/L [facility] K Whole Blood 4.0 3.5 - 5.0 mmol/L [facility] Comment: Please note: Patients with WBC >100,000 may have falsely elevated Potassium levels. Contact the Clinical Chemistry Laboratory if there are any questions. ICa Whole Blood 1.13(L) 1.15 - 1.33 mmol/L [facility] Comment: Note: ??Total bilirubin higher than 20 mg/dL may lead to falsely low ionized calcium. CL Whole Blood 104 98 - 107 mmol/L [facility] Gluc Whole Bld 137 65 - 199 mg/dL [facility] Comment:Diabetes: >=200 mg/d L plus symptoms. Lactate WB 1.7 0.5 - 2.2 mmol/L [facility] Flow Art 6.0 LPM [facility] Blood 07/26/2022 2:08 AM EDT 07/26/2022 2:08 AM EDT Marco Dior MD POINT OF CARE TEST O RDERABLES [facility] [place] [address] * (ABNORMAL) BLOOD GAS 2 ARTERIAL (07/25/2022 10:44 PM EDT) pH, Arterial 7.42 7.35 - 7.45 [facility] PCO2, Arterial 35 35 - 45 mmHg [facility] PO2, Arterial 73(L) 85 - 104 mmHg [facility] Bicarbonate, Arterial 21.9 20.0 - 26.0 mmol/L [facility] Base Excess, Arterial -2.7 -3.0 - 3.0 mmol/L [facility] Hgb Blood Gas 13.4(L) 13.7 - 16.5 g/dL [facility] Oxyhemoglobin, Arterial 93.8(L) 94.0 - 97.0 % [facility] Carboxyhemoglob in, Arterial 0.5 % [facility] Comment: Nonsmokers: 0.5-1.5% COHB Smokers: Variable, but usually less than 10% Toxic: 20-30% COHB Lethal: Greater than 60% COHB Methemoglobin, Arterial 0.7 <=1.5 % [facility] Na Whole Blood 135 135 - 145 mmol/L [facility] K Whole Blood 4.1 3.5 - 5.0 mmol/L [facility] Comment: Please note: Patients with WBC >100,000 may have falsely elevated Potassium levels. Contact the Clinical Chemistry Laboratory if there are any questions. ICa Whole Blood 1.11(L) 1.15 - 1.33 mmol/L [facility] Comment: Note: ??Total bilirubin higher than 20 mg/dL may lead to falsely low ionized calcium. CL Whole Blood 104 98 - 107 mmol/L [facility] Gluc Whole Bld 161 65 - 199 mg/dL [facility] Comment:Diabetes: >=200 mg/d L plus symptoms. Lactate WB 1.5 0.5 - 2.2 mmol/L [facility] FIO2 Art 50 % [facility] PF Ratio Art 146 [facility] Blood 07/25/2022 10:4 4 PM EDT 07/25/2022 10:44 PM EDT Marco Dior MD POINT OF CARE TEST O RDERABLES [facility] [address] * (ABNORMAL) Differential, Automated (07/25/2022 9:10 PM EDT) Neutrophil % 86.1 % [facility] Neutrophil Absolute 6.52(H) 1.70 - 6.10 x10(3)/mc L [facility] Lymph % 7.7 % [facility] Lymphocytes Abs 0.6(L) 0.9 - 3.2 x10(3)/ L [facility] Monocyte % 5.8 % [facility] Monocyte Abs 0.4 0.3 - 0.9 x10(3)/[facility] Eos % 0.0 % [facility] Eosinophils Abs 0.0 0.0 - 0.4 x10(3)/[facility] Basophil % 0.1 % [facility] Baso Absolute 0.0 0.0 - 0.1 x10(3)/[facility] Immature Gran % 0.30 % [facility] Comment: Immature granulocytes(IG's)percentage and absolute count will include metamyelocytes, myelocytes, and promyelocytes. Blood smears from CBCs yielding IG's will be scanned manually for concordance. If this scan disagrees with the automated IG or if promyelocytes are noted, a manual differential will be performed. Immature Gran Absolute 0.02 0.00 - 0.04 x10(3)/ L [facility] Blood 07/25/2022 9:10 PM EDT 07/25/2022 9:19 PM EDT Narrative Resulting Agency Comment Spec In Lab Edwin England MD HEMATOLOGY ORDERABLE S [facility] [place] [address] * (ABNORMAL) Hemogram (07/25/2022 9:10 PM EDT) White Blood Cell 7.6 4.0 - 9.5 x10(3)/[facility] Red Blood Cell 4.17(L) 4.58 - 5.54 x10(6)/[facility] Hemoglobin 12.9(L) 13.7 - 16.5 g/dL [facility] Hematocrit 38.8(L) 40.5 - 48.5 % [facility] Mean Cell Volume 93.0 82.9 - 93.1 fL [facility] Mean Cell Hemoglobin 30.9 27.5 - 32.1 pg [facility] Mean Cell Hemoglobin Concentration 33.2 32.0 - 35.7 g/dL [facility] Platelet 106(L) 145 - 357 x10(3)/mc L [facility] RDW Standard Deviation 50.3(H) 36.0 - 45.0 fL [facility] RDW coefficient of variation 14.8(H) 11.4 - 13.8 % [facility] Mean Platelet Volume 9.9 7.6 - 12.9 fL [facility] NRBC% auto 0.0 % [facility] NRBC Absolute 0.000 0.000 - 0.000 x10(3)/mc L [facility] Blood 07/25/2022 9:10 PM EDT 07/25/2022 9:19 PM EDT Narrative Resulting Agency Comment Spec In Lab Edwin England MD HEMATOLOGY ORDERABLE S Performing Organization Address [facility] Co de Phone Number [facility] [place] [address] * Phosphorus (07/25/2022 9:10 PM EDT) Phosphorus 3.0 2.5 - 4.5 mg/dL [facility] Blood 07/25/2022 9:10 PM EDT 07/25/2022 9:19 PM EDT Narrative Resulting Agency Comment Spec In Lab Marco Dior MD CHEMISTRY ORDERABLES Performing Organization Address [facility] Co de Phone Number [facility] [place] [address] * (ABNORMAL) CK (07/25/2022 9:10 PM EDT) Creatine Kinase 726(H) 0 - 200 unit/L [facility] Blood 07/25/2022 9:10 PM EDT 07/25/2022 9:19 PM EDT Narrative Resulting Agency Comment Spec In Lab Marco Dior MD CHEMISTRY ORDERABLES Performing Organization Address [facility]/ZIP Co de Phone Number [facility] [place] [address] * Fibrinogen (07/25/2022 9:10 PM EDT) Fibrinogen 357 200 - 393 mg/dL [facility] Comment: A fibrinogen level >100 mg/dL is adequate for hemostasis in most patients without underlying bleeding disorders. Blood 07/25/2022 9:10 PM EDT 07/25/2022 9:19 PM EDT Narrative Resulting Agency Comment Spec In Lab Marco Dior MD HEMATOLOGY ORDERABLE S Performing Organization Address [facility] Co de Phone Number [facility] [place] [address] * APTT (07/25/2022 9:10 PM EDT) Partial Thromboplastin Time 33 25 - 37 sec [facility] Comment: The PTT is NOT appropriate for heparin monitoring. Use the Anti-Xa level for heparin monitoring (HEP UFH) or LMWH monitoring (HEP LMW). A PTT less than 37 seconds generally indicates adequate hemostasis. Blood 07/25/2022 9:10 PM EDT 07/25/2022 9:19 PM EDT Narrative Resulting Agency Comment Spec In Lab Marco Dior MD HEMATOLOGY ORDERABLE S Performing Organization Address [facility] Co de Phone Number [facility] [place] [address] * (ABNORMAL) Comprehensive metabolic panel (non-fasting) (07/25/2022 9:10 PM EDT) Glucose 179 65 - 199 mg/dL [facility] Comment:Diabetes: >=200 mg/d L plus symptoms Blood Urea Nitrogen 16 10 - 20 mg/dL [facility] Creatinine 0.93 0.80 - 1.50 mg/dL [facility] Sodium 138 135 - 145 mmol/L [facility] Potassium 4.0 3.5 - 5.0 mmol/L [facility] Comment: Please note: ??Patients with WBC >100,000 may have falsely elevated Potassium levels. ??For accurate Potassium quantification in these patients send serum separator tube (gold top) for subsequent determinations. ??Contact the Clinical Chemistry Laboratory if there are any questions. Chloride 103 98 - 107 mmol/L [facility] Carbon Dioxide 22 22 - 31 mmol/L [facility] Anion Gap 13 5 - 15 mmol/L [facility] Calcium 8.3(L) 8.5 - 10.5 mg/dL [facility] Protein, Total 5.7(L) 6.1 - 8.0 g/dL [facility] Albumin 3.5 3.2 - 5.2 g/dL [facility] Aspartate Aminotransferase 53(H) 0 - 39 unit/L [facility] Alanine Aminotransferase 25 0 - 55 unit/L [facility] Alkaline Phosphatase 58 40 - 130 unit/L [facility] Bilirubin, Total 0.4 0.2 - 1.3 mg/dL [facility] Est Glomerular Filtration Rate 98 >=60 mL/min/1. 73 m?? [facility] Comment: This patient's estimated GFR was [...] and symptoms in addition to eGFR. Blood 07/25/2022 9:10 PM EDT 07/25/2022 9:19 PM EDT Narrative Resulting Agency Comment Spec In Lab Marco Dior MD CHEMISTRY ORDERABLES [facility] [place] [address] * (ABNORMAL) BLOOD GAS 2 ARTERIAL (07/25/2022 9:09 PM EDT) pH, Arterial 7.38 7.35 - 7.45 [facility] PCO2, Arterial 37 35 - 45 mmHg [facility] PO2, Arterial 63(L) 85 - 104 mmHg [facility] Bicarbonate, Arterial 21.6 20.0 - 26.0 mmol/L [facility] Base Excess, Arterial -3.5(L) -3.0 - 3.0 mmol/L [facility] Hgb Blood Gas 14.1 13.7 - 16.5 g/dL [facility] Oxyhemoglobin, Arterial 90.6(L) 94.0 - 97.0 % [facility] Carboxyhemoglob in, Arterial 0.7 % [facility] Comment: Nonsmokers: 0.5-1.5% COHB Smokers: Variable, but usually less than 10% Toxic: 20-30% COHB Lethal: Greater than 60% COHB Methemoglobin, Arterial 0.6 <=1.5 % [facility] Na Whole Blood 135 135 - 145 mmol/L [facility] K Whole Blood 3.9 3.5 - 5.0 mmol/L [facility] Comment: Please note: Patients with WBC >100,000 may have falsely elevated Potassium levels. Contact the Clinical Chemistry Laboratory if there are any questions. ICa Whole Blood 1.13(L) 1.15 - 1.33 mmol/L [facility] Comment: Note: ??Total bilirubin higher than 20 mg/dL may lead to falsely low ionized calcium. CL Whole Blood 103 98 - 107 mmol/L [facility] Gluc Whole Bld 173 65 - 199 mg/dL [facility] Comment:Diabetes: >=200 mg/d L plus symptoms. Lactate WB 1.8 0.5 - 2.2 mmol/L [facility] Flow Art 6.0 LPM [facility] Blood 07/25/2022 9:09 PM EDT 07/25/2022 9:09 PM EDT Marco Dior MD POINT OF CARE TEST O RDERAMADELEINE [facility] [place] [address] * (ABNORMAL) BLOOD GAS 2 ARTERIAL (07/25/2022 5:42 PM EDT) pH, Arterial 7.31(L) 7.35 - 7.45 [facility] PCO2, Arterial 39 35 - 45 mmHg [facility] PO2, Arterial 72(L) 85 - 104 mmHg [facility] Bicarbonate, Arterial 19.1(L) 20.0 - 26.0 mmol/L [facility] Base Excess, Arterial -7.4(L) -3.0 - 3.0 mmol/L [facility] Hgb Blood Gas 14.4 13.7 - 16.5 g/dL [facility] Oxyhemoglobin, Arterial 92.9(L) 94.0 - 97.0 % [facility] Carboxyhemoglob in, Arterial 0.8 % [facility] Comment: Nonsmokers: 0.5-1.5% COHB Smokers: Variable, but usually less than 10% Toxic: 20-30% COHB Lethal: Greater than 60% COHB Methemoglobin, Arterial 0.5 <=1.5 % [facility] Na Whole Blood 137 135 - 145 mmol/L [facility] K Whole Blood 3.8 3.5 - 5.0 mmol/L [facility] Comment: Please note: Patients with WBC >100,000 may have falsely elevated Potassium levels. Contact the Clinical Chemistry Laboratory if there are any questions. ICa Whole Blood 1.14(L) 1.15 - 1.33 mmol/L [facility] Comment: Note: ??Total bilirubin higher than 20 mg/dL may lead to falsely low ionized calcium. CL Whole Blood 105 98 - 107 mmol/L [facility] Gluc Whole Bld 161 65 - 199 mg/dL [facility] Comment:Diabetes: >=200 mg/d L plus symptoms. Lactate WB 1.7 0.5 - 2.2 mmol/L [facility] Flow Art 4.0 LPM [facility] Temp Art 36.2 Celsius [facility] Blood 07/25/2022 5:42 PM EDT 07/25/2022 5:42 PM EDT Marco Dior MD POINT OF CARE TEST O RDERABLES [facility] [address] [place] [address] * XR Chest One View (07/25/2022 3:53 PM EDT) Anatomical Region Laterality Modality Chest N/A Digital Radiogra phy Impressions 07/25/2022 4:19 PM EDT 1. ??Right IJ venous catheter with distal tip overlying the proximal right atrium. Consider retraction by approximately 3.5 cm. No visualized pneumothorax. 2. ??Mild pulmonary vascular congestion. Thank you for letting us participate in the care of this patient. ??If you are a health care provider and have any questions regarding this report, please contact the number below. ??For patients who have questions please contact the health daycare teacher that requested your imaging first. ? Narrative 07/25/2022 4:19 PM EDT EXAMINATION: XR CHEST ONE VIEW CLINICAL HISTORY: central line placement TECHNIQUE: Single portable AP 20 degrees upright chest radiograph 07/25/2022 at 1550 hours COMPARISON: CT a abdominal aorta and lower extremity runoff 07/24/2022 from [facility] FINDINGS: Monitor leads and wires overlie the chest. A right IJ venous catheter is in place with distal tip overlying the proximal right atrium. No visualized pneumothorax. Subdiaphragmatic position of enteric tube, distal tip not imaged. Relatively low lung volumes with central and bibasilar vascular crowding. No confluent airspace opacity identified. Peripherally calcified subcentimeter nodule overlying the right mid hemithorax may represent a calcified granuloma. Heart is normal in size. No mediastinal widening. Mildly prominent vascular markings. No visualized pleural effusion or acute osseous abnormality. Procedure Note Becki Summers MD - 07/25/2022 EXAMINATION: XR CHEST ONE VIEW CLINICAL HISTORY: central line placement TECHNIQUE: Single portable AP 20 degrees upright chest radiograph 07/25/2022 at 1550hours COMPARISON: CT a abdominal aorta and lower extremity runoff 07/24/2022 [facility] FINDINGS: Monitor leads and wires overlie the chest. A right IJ venous catheter isin place with distal tip overlying the proximal right atrium. No visualized pneumothorax. Subdiaphragmatic position of enteric tube, distal tip notimaged. Relatively low lung volumes with central and bibasilar vascular crowding.No confluent airspace opacity identified. Peripherally calcifiedsubcentimeter nodule overlying the right mid hemithorax may represent a calcifiedgranuloma. Heart is normal in size. No mediastinal widening. Mildly prominentvascular markings. No visualized pleural effusion or acute osseous abnormality. IMPRESSION 1. Right IJ venous catheter with distal tip overlying the proximalright atrium. Consider retraction by approximately 3.5 cm. No visualizedpneumothorax. 2. Mild pulmonary vascular congestion. Thank you for letting us participate in the care of this patient. If youare a health care provider and have any questions regarding this report,please contact the number below. For patients who have questions please contactthe health daycare teacher that requested your imaging first. Marco Dior MD IMG DX ORDERABLES * (ABNORMAL) BLOOD GAS 2 ARTERIAL (07/25/2022 3:42 PM EDT) pH, Arterial 7.29(Crit ical) 7.35 - 7.45 [facility] Comment:Noted by instrumentation engineer. PCO2, Arterial 41 35 - 45 mmHg [facility] PO2, Arterial 66(L) 85 - 104 mmHg [facility] Bicarbonate, Arterial 19.6(L) 20.0 - 26.0 mmol/L [facility] Base Excess, Arterial -7.3(L) -3.0 - 3.0 mmol/L [facility] Hgb Blood Gas 16.4 13.7 - 16.5 g/dL [facility] Oxyhemoglobin, Arterial 91.9(L) 94.0 - 97.0 % [facility] Carboxyhemoglo bin, Arterial 0.9 % [facility] Comment: Nonsmokers: 0.5-1.5% COHB Smokers: Variable, but usually less than 10% Toxic: 20-30% COHB Lethal: Greater than 60% COHB Methemoglobin, Arterial 0.5 <=1.5 % [facility] Na Whole Blood 138 135 - 145 mmol/L [facility] K Whole Blood 3.8 3.5 - 5.0 mmol/L [facility] Comment: Please note: Patients with WBC >100,000 may have falsely elevated Potassium levels. Contact the Clinical Chemistry Laboratory if there are any questions. ICa Whole Blood 1.18 1.15 - 1.33 mmol/L [facility] Comment: Note: ??Total bilirubin higher than 20 mg/dL may lead to falsely low ionized calcium. CL Whole Blood 105 98 - 107 mmol/L [facility] Gluc Whole Bld 172 65 - 199 mg/dL [facility] Comment:Diabetes: >=200 mg/d L plus symptoms. Lactate WB 1.9 0.5 - 2.2 mmol/L [facility] Flow Art 6.0 LPM [facility] Temp Art 35.3 Celsius [facility] Blood 07/25/2022 3:42 PM EDT 07/25/2022 3:42 PM EDT Marco Dior MD POINT OF CARE TEST O RDERABLES Performing Organization Address City/State/[facility] Co de Phone Number [facility] [place] [address] * (ABNORMAL) Differential, Automated (07/25/2022 3:20 PM EDT) Neutrophil % 78.5 % [facility] Neutrophil Absolute 10.91(H) 1.70 - 6.10 x10(3)/mc L [facility] Lymph % 15.7 % [facility] Lymphocytes Abs 2.2 0.9 - 3.2 x10(3)/mc L [facility] Monocyte % 4.9 % [facility] Monocyte Abs 0.7 0.3 - 0.9 x10(3)/mc L [facility] Eos % 0.2 % [facility] Eosinophils Abs 0.0 0.0 - 0.4 x10(3)/mc L [facility] Basophil % 0.3 % [facility] Baso Absolute 0.0 0.0 - 0.1 x10(3)/mc L [facility] Immature Gran % 0.40 % [facility] Comment: Immature granulocytes(IG's)percentage and absolute count will include metamyelocytes, myelocytes, and promyelocytes. Blood smears from CBCs yielding IG's will be scanned manually for concordance. If this scan disagrees with the automated IG or if promyelocytes are noted, a manual differential will be performed. Immature Gran Absolute 0.06(H) 0.00 - 0.04 x10(3)/ L [facility] Blood 07/25/2022 3:20 PM EDT 07/25/2022 3:40 PM EDT Narrative Resulting Agency Comment Spec In Lab Edwin England MD HEMATOLOGY ORDERABLE S [facility] [place] [address] * (ABNORMAL) Hemogram (07/25/2022 3:20 PM EDT) White Blood Cell 13.9(H) 4.0 - 9.5 x10(3)/mc L [facility] Red Blood Cell 5.00 4.58 - 5.54 x10(6)/ L [facility] Hemoglobin 15.3 13.7 - 16.5 g/dL [facility] Hematocrit 46.9 40.5 - 48.5 % [facility] Mean Cell Volume 93.8(H) 82.9 - 93.1 fL [facility] Mean Cell Hemoglobin 30.6 27.5 - 32.1 pg [facility] Mean Cell Hemoglobin Concentration 32.6 32.0 - 35.7 g/dL [facility] Platelet 151 145 - 357 x10(3)/mc L [facility] RDW Standard Deviation 51.3(H) 36.0 - 45.0 fL [facility] RDW coefficient of variation 14.9(H) 11.4 - 13.8 % [facility] Mean Platelet Volume 10.5 7.6 - 12.9 fL [facility] NRBC% auto 0.0 % [facility] NRBC Absolute 0.000 0.000 - 0.000 x10(3)/mc L [facility] Blood 07/25/2022 3:20 PM EDT 07/25/2022 3:40 PM EDT Narrative Resulting Agency Comment Spec In Lab Edwin England MD HEMATOLOGY ORDERABLE S Performing Organization Address City/[facility]/ZIP Co de Phone Number [facility] [address] * (ABNORMAL) CK (07/25/2022 3:20 PM EDT) Creatine Kinase 747(H) 0 - 200 unit/L [facility] Blood 07/25/2022 3:20 PM EDT 07/25/2022 3:40 PM EDT Narrative Resulting Agency Comment Spec In Lab Marco Dior MD CHEMISTRY ORDERABLES Performing Organization Address [facility] de Phone Number [facility] [address] * (ABNORMAL) Fibrinogen (07/25/2022 3:20 PM EDT) Fibrinogen 402(H) 200 - 393 mg/dL [facility] Comment: A fibrinogen level >100 mg/dL is adequate for hemostasis in most patients without underlying bleeding disorders. Blood 07/25/2022 3:20 PM EDT 07/25/2022 3:40 PM EDT Narrative Resulting Agency Comment Spec In Lab Marco Dior MD HEMATOLOGY ORDERABLE S Performing Organization Address City/[facility] Co de Phone Number [facility] [place] [address] * APTT (07/25/2022 3:20 PM EDT) Partial Thromboplastin Time 35 25 - 37 sec [facility] Comment: The PTT is NOT appropriate for heparin monitoring. Use the Anti-Xa level for heparin monitoring (HEP UFH) or LMWH monitoring (HEP LMW). A PTT less than 37 seconds generally indicates adequate hemostasis. Blood 07/25/2022 3:20 PM EDT 07/25/2022 3:40 PM EDT Narrative Resulting Agency Comment Spec In Lab Marco Dior MD HEMATOLOGY ORDERABLE S [facility] [place] [address] * (ABNORMAL) Comprehensive metabolic panel (non-fasting) (07/25/2022 3:20 PM EDT) Glucose 181 65 - 199 mg/dL [facility] Comment: result rechecked- [place] Diabetes: >=200 mg/dL plus symptoms Blood Urea Nitrogen 19 10 - 20 mg/dL [facility] Creatinine 0.97 0.80 - 1.50 mg/dL [facility] Sodium 140 135 - 145 mmol/L [facility] Potassium 3.8 3.5 - 5.0 mmol/L [facility] Comment: Please note: ??Patients with WBC >100,000 may have falsely elevated Potassium levels. ??For accurate Potassium quantification in these patients send serum separator tube (gold top) for subsequent determinations. ??Contact the Clinical Chemistry Laboratory if there are any questions. Chloride 104 98 - 107 mmol/L [facility] Carbon Dioxide 19(L) 22 - 31 mmol/L [facility] Anion Gap 17(H) 5 - 15 mmol/L [facility] Calcium 8.9 8.5 - 10.5 mg/dL [facility] Protein, Total 5.9(L) 6.1 - 8.0 g/dL [facility] Albumin 3.2 3.2 - 5.2 g/dL [facility] Aspartate Aminotransferase 67(H) 0 - 39 unit/L [facility] Comment:result rechecked- [place] Alanine Aminotransferase 34 0 - 55 unit/L [facility] Comment:result rechecked- [place] Alkaline Phosphatase 74 40 - 130 unit/L [facility] Bilirubin, Total 0.4 0.2 - 1.3 mg/dL [facility] Est Glomerular Filtration Rate 93 >=60 mL/min/1. 73 m?? [facility] Comment: This patient's estimated GFR was [...] and symptoms in addition to eGFR. Blood 07/25/2022 3:20 PM EDT 07/25/2022 3:40 PM EDT Narrative Resulting Agency Comment Spec In Lab Marco Dior MD CHEMISTRY ORDERABLES Performing Organization Address [facility] Co de Phone Number [facility] [address] * Prothrombin Time (07/25/2022 3:20 PM EDT) Prothrombin Time 11.8 9.4 - 12.5 sec [facility] International Normalization Ratio 1.0 [facility] Comment: An INR <2.0 indicates adequate procoagulant activity for hemostasis in most patients without underlying bleeding disorders, though the INR may not adequately reflect hemostatic capacity in patients with liver disease and synthetic impairment. The recommended target INR range for therapeutic anticoagulation is 2.0 ? 3.0 for most applications, though lower and higher ranges may be appropriate depending on clinical circumstances. Blood 07/25/2022 3:20 PM EDT 07/25/2022 3:40 PM EDT Narrative Resulting Agency Comment Spec In Lab Marco Dior MD HEMATOLOGY ORDERABLE S Performing Organization Address City/[facility]/ZIP Co de Phone Number [facility] [place] [address] * (ABNORMAL) BLOOD GAS 2 ARTERIAL (07/25/2022 1:34 PM EDT) pH, Arterial 7.37 7.35 - 7.45 [facility] PCO2, Arterial 36 35 - 45 mmHg [facility] PO2, Arterial 157(H) 85 - 104 mmHg [facility] Bicarbonate, Arterial 21.0 20.0 - 26.0 mmol/L [facility] Base Excess, Arterial -4.9(L) -3.0 - 3.0 mmol/L [facility] Hgb Blood Gas 14.3 13.7 - 16.5 g/dL [facility] Oxyhemoglobin, Arterial 97.1(H) 94.0 - 97.0 % [facility] Carboxyhemoglob in, Arterial 1.9 % [facility] Comment: Nonsmokers: 0.5-1.5% COHB Smokers: Variable, but usually less than 10% Toxic: 20-30% COHB Lethal: Greater than 60% COHB Methemoglobin, Arterial 0.3 <=1.5 % [facility] Na Whole Blood 138 135 - 145 mmol/L [facility] K Whole Blood 4.0 3.5 - 5.0 mmol/L [facility] Comment: Please note: Patients with WBC >100,000 may have falsely elevated Potassium levels. Contact the Clinical Chemistry Laboratory if there are any questions. ICa Whole Blood 1.20 1.15 - 1.33 mmol/L [facility] Comment: Note: ??Total bilirubin higher than 20 mg/dL may lead to falsely low ionized calcium. CL Whole Blood 106 98 - 107 mmol/L [facility] Gluc Whole Bld 119 65 - 199 mg/dL [facility] Comment:Diabetes: >=200 mg/d L plus symptoms. Lactate WB 1.7 0.5 - 2.2 mmol/L [facility] Temp Art 34.5 Celsius [facility] Blood 07/25/2022 1:34 PM EDT 07/25/2022 1:34 PM EDT Marco Dior MD POINT OF CARE TEST O RDERABLES [facility] [address] * (ABNORMAL) BLOOD GAS 2 ARTERIAL (07/25/2022 12:30 PM EDT) pH, Arterial 7.40 7.35 - 7.45 [facility] PCO2, Arterial 33(L) 35 - 45 mmHg [facility] PO2, Arterial 142(H) 85 - 104 mmHg [facility] Bicarbonate, Arterial 20.1 20.0 - 26.0 mmol/L [facility] Base Excess, Arterial -5.3(L) -3.0 - 3.0 mmol/L [facility] Hgb Blood Gas 14.0 13.7 - 16.5 g/dL [facility] Oxyhemoglobin, Arterial 97.3(H) 94.0 - 97.0 % [facility] Carboxyhemoglob in, Arterial 1.6 % [facility] Comment: Nonsmokers: 0.5-1.5% COHB Smokers: Variable, but usually less than 10% Toxic: 20-30% COHB Lethal: Greater than 60% COHB Methemoglobin, Arterial 0.3 <=1.5 % [facility] Na Whole Blood 136 135 - 145 mmol/L [facility] K Whole Blood 4.0 3.5 - 5.0 mmol/L [facility] Comment: Please note: Patients with WBC >100,000 may have falsely elevated Potassium levels. Contact the Clinical Chemistry Laboratory if there are any questions. ICa Whole Blood 1.26 1.15 - 1.33 mmol/L [facility] Comment: Note: ??Total bilirubin higher than 20 mg/dL may lead to falsely low ionized calcium. CL Whole Blood 105 98 - 107 mmol/L [facility] Gluc Whole Bld 105 65 - 199 mg/dL [facility] Comment:Diabetes: >=200 mg/d L plus symptoms. Lactate WB 0.9 0.5 - 2.2 mmol/L [facility] FIO2 Art 80 % [facility] PF Ratio Art 178 [facility] Temp Art 34.7 Celsius [facility] Blood 07/25/2022 12:3 0 PM EDT 07/25/2022 12:30 PM EDT Marco Dior MD POINT OF CARE TEST O RDERABLES [facility] [place] [address] * (ABNORMAL) BLOOD GAS 2 ARTERIAL (07/25/2022 11:42 AM EDT) pH, Arterial 7.37 7.35 - 7.45 [facility] PCO2, Arterial 35 35 - 45 mmHg [facility] PO2, Arterial 172(H) 85 - 104 mmHg [facility] Bicarbonate, Arterial 20.3 20.0 - 26.0 mmol/L [facility] Base Excess, Arterial -5.5(L) -3.0 - 3.0 mmol/L [facility] Hgb Blood Gas 13.1(L) 13.7 - 16.5 g/dL [facility] Oxyhemoglobin, Arterial 97.3(H) 94.0 - 97.0 % [facility] Carboxyhemoglob in, Arterial 1.6 % [facility] Comment: Nonsmokers: 0.5-1.5% COHB Smokers: Variable, but usually less than 10% Toxic: 20-30% COHB Lethal: Greater than 60% COHB Methemoglobin, Arterial 0.3 <=1.5 % [facility] Na Whole Blood 135 135 - 145 mmol/L [facility] K Whole Blood 3.6 3.5 - 5.0 mmol/L [facility] Comment: Please note: Patients with WBC >100,000 may have falsely elevated Potassium levels. Contact the Clinical Chemistry Laboratory if there are any questions. ICa Whole Blood 1.19 1.15 - 1.33 mmol/L [facility] Comment: Note: ??Total bilirubin higher than 20 mg/dL may lead to falsely low ionized calcium. CL Whole Blood 106 98 - 107 mmol/L [facility] Gluc Whole Bld 113 65 - 199 mg/dL [facility] Comment:Diabetes: >=200 mg/d L plus symptoms. Lactate WB 1.1 0.5 - 2.2 mmol/L [facility] Temp Art 34.9 Celsius [facility] Blood 07/25/2022 11:4 2 AM EDT 07/25/2022 11:42 AM EDT Marco Dior MD POINT OF CARE TEST O RDERABLES [facility] [place] [address] * (ABNORMAL) BLOOD GAS 2 ARTERIAL (07/25/2022 10:40 AM EDT) pH, Arterial 7.29(Crit ical) 7.35 - 7.45 [facility] Comment:Noted by instrumentation engineer. PCO2, Arterial 41 35 - 45 mmHg [facility] PO2, Arterial 80(L) 85 - 104 mmHg [facility] Bicarbonate, Arterial 19.4(L) 20.0 - 26.0 mmol/L [facility] Base Excess, Arterial -7.6(L) -3.0 - 3.0 mmol/L [facility] Hgb Blood Gas 15.1 13.7 - 16.5 g/dL [facility] Oxyhemoglobin, Arterial 93.5(L) 94.0 - 97.0 % [facility] Carboxyhemoglo bin, Arterial 2.4 % [facility] Comment: Nonsmokers: 0.5-1.5% COHB Smokers: Variable, but usually less than 10% Toxic: 20-30% COHB Lethal: Greater than 60% COHB Methemoglobin, Arterial 0.3 <=1.5 % [facility] Na Whole Blood 137 135 - 145 mmol/L [facility] K Whole Blood 3.8 3.5 - 5.0 mmol/L [facility] Comment: Please note: Patients with WBC >100,000 may have falsely elevated Potassium levels. Contact the Clinical Chemistry Laboratory if there are any questions. ICa Whole Blood 1.13(L) 1.15 - 1.33 mmol/L [facility] Comment: Note: ??Total bilirubin higher than 20 mg/dL may lead to falsely low ionized calcium. CL Whole Blood 108(H) 98 - 107 mmol/L [facility] Gluc Whole Bld 91 65 - 199 mg/dL [facility] Comment:Diabetes: >=200 mg/d L plus symptoms. Lactate WB 0.8 0.5 - 2.2 mmol/L [facility] Temp Art 35.3 Celsius [facility] Blood 07/25/2022 10:4 0 AM EDT 07/25/2022 10:40 AM EDT Marco Dior MD POINT OF CARE TEST O RDERABLES [facility] [address] [address] * (ABNORMAL) BLOOD GAS 2 ARTERIAL (07/25/2022 9:34 AM EDT) pH, Arterial 7.30(L) 7.35 - 7.45 [facility] PCO2, Arterial 43 35 - 45 mmHg [facility] PO2, Arterial 125(H) 85 - 104 mmHg [facility] Bicarbonate, Arterial 20.8 20.0 - 26.0 mmol/L [facility] Base Excess, Arterial -5.6(L) -3.0 - 3.0 mmol/L [facility] Hgb Blood Gas 14.6 13.7 - 16.5 g/dL [facility] Oxyhemoglobin, Arterial 96.0 94.0 - 97.0 % [facility] Carboxyhemoglob in, Arterial 2.0 % [facility] Comment: Nonsmokers: 0.5-1.5% COHB Smokers: Variable, but usually less than 10% Toxic: 20-30% COHB Lethal: Greater than 60% COHB Methemoglobin, Arterial 0.3 <=1.5 % [facility] Na Whole Blood 137 135 - 145 mmol/L [facility] K Whole Blood 3.7 3.5 - 5.0 mmol/L [facility] Comment: Please note: Patients with WBC >100,000 may have falsely elevated Potassium levels. Contact the Clinical Chemistry Laboratory if there are any questions. ICa Whole Blood 1.13(L) 1.15 - 1.33 mmol/L [facility] Comment: Note: ??Total bilirubin higher than 20 mg/dL may lead to falsely low ionized calcium. CL Whole Blood 106 98 - 107 mmol/L [facility] Gluc Whole Bld 79 65 - 199 mg/dL [facility] Comment:Diabetes: >=200 mg/d L plus symptoms. Lactate WB 1.0 0.5 - 2.2 mmol/L [facility] Blood 07/25/2022 9:34 AM EDT 07/25/2022 9:34 AM EDT Marco Dior MD POINT [place] [address] * Differential, Automated (07/25/2022 4:21 AM EDT) Neutrophil % 51.1 % [facility] Neutrophil Absolute 3.39 1.70 - 6.10 x10(3)/[facility] Lymph % 40.1 % [facility] Lymphocytes Abs 2.7 0.9 - 3.2 x10(3)/[facility] Monocyte % 6.3 % [facility] Monocyte Abs 0.4 0.3 - 0.9 x10(3)/[facility] Eos % 1.7 % [facility] Eosinophils Abs 0.1 0.0 - 0.4 x10(3)/[facility] Basophil % 0.5 % [facility] Baso Absolute 0.0 0.0 - 0.1 x10(3)/[facility] Immature Gran % 0.30 % [facility] Comment: Immature granulocytes(IG's)percentage and absolute count will include metamyelocytes, myelocytes, and promyelocytes. Blood smears from CBCs yielding IG's will be scanned manually for concordance. If this scan disagrees with the automated IG or if promyelocytes are noted, a manual differential will be performed. Immature Gran Absolute 0.02 0.00 - 0.04 x10(3)/[facility] Blood 07/25/2022 4:21 AM EDT 07/25/2022 4:26 AM EDT Narrative Resulting Agency Comment Spec In Lab Paul Reynolds MD HEMATOLOGY ORDERABLE S Performing Organization Address City/[facility]/ZIP Co de Phone Number [facility] [place] [address] * (ABNORMAL) Hemogram (07/25/2022 4:21 AM EDT) White Blood Cell 6.6 4.0 - 9.5 x10(3)/mc L [facility] Red Blood Cell 3.94(L) 4.58 - 5.54 x10(6)/mc L [facility] Hemoglobin 12.3(L) 13.7 - 16.5 g/dL [facility] Hematocrit 36.9(L) 40.5 - 48.5 % [facility] Mean Cell Volume 93.7(H) 82.9 - 93.1 fL [facility] Mean Cell Hemoglobin 31.2 27.5 - 32.1 pg [facility] Mean Cell Hemoglobin Concentration 33.3 32.0 - 35.7 g/dL [facility] Platelet 129(L) 145 - 357 x10(3)/mc L [facility] RDW Standard Deviation 50.5(H) 36.0 - 45.0 fL [facility] RDW coefficient of variation 14.7(H) 11.4 - 13.8 % [facility] Mean Platelet Volume 10.1 7.6 - 12.9 fL [facility] NRBC% auto 0.0 % [facility] NRBC Absolute 0.000 0.000 - 0.000 x10(3)/mc L [facility] Blood 07/25/2022 4:21 AM EDT 07/25/2022 4:26 AM EDT Narrative Resulting Agency Comment Spec In Lab Paul Reynolds MD HEMATOLOGY ORDERABLE S Performing Organization Address City/State/[facility] Co de Phone Number [facility] [place] [address] * Heparin (unfractionated) Level (07/25/2022 4:21 AM EDT) UF Heparin 0.44 IU/mL [facility] Comment: Heparin (anti-Xa) levels should be determined in a plasma sample that has been drawn 6 hours after a dose change to approximate steady-state for continuous heparin infusions. Indication specific Heparin (anti-Xa) levels based on order set selection: Acute DVT or PE treatment: 0.3 ? 0.7 IU/mL Thrombosis Prevention (eg. atrial fibrillation, george-procedural bridging, mechanical valves): 0.3 ? 0.7 IU/mL Acute Coronary Syndrome: 0.3 ? 0.7 IU/mL Stroke Indications: 0.3 ? 0.5 IU/mL Ultra-low intensity (select indications in cardiac surgery): 0.1 ? 0.3 IU/mL Blood 07/25/2022 4:21 AM EDT 07/25/2022 4:26 AM EDT Narrative Resulting Agency Comment Spec In Lab Marco Dior MD HEMATOLOGY ORDERABLE S Performing Organization Address City/[facility] Co de Phone Number [facility] [place] [address] * Phosphorus (07/25/2022 4:21 AM EDT) Phosphorus 2.5 2.5 - 4.5 mg/dL [facility] Blood 07/25/2022 4:21 AM EDT 07/25/2022 4:26 AM EDT Narrative Resulting Agency Comment Spec In Lab Marco Dior MD CHEMISTRY ORDERABLES Performing Organization Address [facility] Co de Phone Number [facility] [place] [address] * (ABNORMAL) Magnesium (07/25/2022 4:21 AM EDT) Magnesium 0.61(L) 0.69 - 1.07 mmol/L [facility] Blood 07/25/2022 4:21 AM EDT 07/25/2022 4:26 AM EDT Narrative Resulting Agency Comment Spec In Lab Marco Dior MD CHEMISTRY ORDERABLES Performing Organization Address [facility] Co de Phone Number [facility] [place] [address] * (ABNORMAL) Basic Metabolic Panel (non-fasting) (07/25/2022 4:21 AM EDT) Glucose 66 65 - 199 mg/dL [facility] Comment:Diabetes: >=200 mg/d L plus symptoms Blood Urea Nitrogen 19 10 - 20 mg/dL [facility] Creatinine 0.84 0.80 - 1.50 mg/dL [facility] Sodium 137 135 - 145 mmol/L [facility] Potassium 4.0 3.5 - 5.0 mmol/L [facility] Comment: Please note: ??Patients with WBC >100,000 may have falsely elevated Potassium levels. ??For accurate Potassium quantification in these patients send serum separator tube (gold top) for subsequent determinations. ??Contact the Clinical Chemistry Laboratory if there are any questions. Chloride 106 98 - 107 mmol/L [facility] Carbon Dioxide 19(L) 22 - 31 mmol/L [facility] Anion Gap 12 5 - 15 mmol/L [facility] Calcium 8.1(L) 8.5 - 10.5 mg/dL [facility] Est Glomerular Filtration Rate 104 >=60 mL/min/1. 73 m?? [facility] Comment: This patient's estimated GFR was [...] and symptoms in addition to eGFR. Blood 07/25/2022 4:21 AM EDT 07/25/2022 4:26 AM EDT Narrative Resulting Agency Comment Spec In Lab Marco Dior MD CHEMISTRY ORDERABLES [facility] [place] [address] * SCAN DOC: IMPLANTABLE DEVICES (07/25/2022 12:00 AM EDT) Narrative 07/25/2022 12:00 AM EDT Ordered by an unspecified provider. Scanning Provider MEDIA MGR SCAN EXT O RDR/RSLT * L-Lactate2 Whole Blood (07/24/2022 9:48 PM EDT) Lactate WB 1.2 0.5 - 2.2 mmol/L [facility] Blood 07/24/2022 9:48 PM EDT 07/24/2022 9:48 PM EDT Marco Dior MD CHEMISTRY ORDERABLES Performing Organization Address City/[facility]/ZIP Co de Phone Number [facility] [place] [address] * Type and Screen Validity (07/24/2022 9:15 PM EDT) [facility] T&S only valid at [facility] LABORATORY Comment:This Type and Screen result is only valid at the [facility] Blood 07/24/2022 9:15 PM EDT 07/24/2022 9:24 PM EDT Narrative Resulting Agency Comment Spec In Lab Christiano Bah MD BLOOD BANK LAB ORDER TABITHA Performing Organization Address City/[facility]/ZIP Co de Phone Number [facility] [place] [address] * ABORH Recheck Status (07/24/2022 9:15 PM EDT) [facility] ABORH Recheck Order Order Placed [facility] ABORH Type Recheck Complete [facility] Blood 07/24/2022 9:15 PM EDT 07/24/2022 9:24 PM EDT Narrative Resulting Agency Comment Spec In Lab Christiano Bah MD BLOOD BANK LAB ORDER TABITHA Performing Organization Address City/[facility] Co de Phone Number [facility] [place] [address] * Differential, Automated (07/24/2022 9:15 PM EDT) [facility] Neutrophil % 51.2 % [facility] Neutrophil Absolute 4.15 1.70 - 6.10 x10(3)/[facility]ORAT[facility] Lymph % 39.5 % [facility] Lymphocytes Abs 3.2 0.9 - 3.2 x10(3)/[facility]ORAT[facility] Monocyte % 6.8 % [facility] Monocyte Abs 0.6 0.3 - 0.9 x10(3)/[facility] Eos % 1.9 % [facility] Eosinophils Abs 0.2 0.0 - 0.4 x10(3)/[facility] Basophil % 0.5 % [facility] Baso Absolute 0.0 0.0 - 0.1 x10(3)/[facility] Immature Gran % 0.10 % [facility] Comment: Immature granulocytes(IG's)percentage and absolute count will include metamyelocytes, myelocytes, and promyelocytes. Blood smears from CBCs yielding IG's will be scanned manually for concordance. If this scan disagrees with the automated IG or if promyelocytes are noted, a manual differential will be performed. Immature Gran Absolute 0.01 0.00 - 0.04 x10(3)/[facility]AT[facility] Blood 07/24/2022 9:15 PM EDT 07/24/2022 9:26 PM EDT Narrative Resulting Agency Comment Spec In Lab Christiano Bah MD HEMATOLOGY ORDERABLE S [facility] [address] * (ABNORMAL) Hemogram (07/24/2022 9:15 PM EDT) White Blood Cell 8.1 4.0 - 9.5 x10(3)/mc L [facility] Red Blood Cell 4.80 4.58 - 5.54 x10(6)/mc L [facility] Hemoglobin 15.0 13.7 - 16.5 g/dL [facility] Hematocrit 44.0 40.5 - 48.5 % [facility] Mean Cell Volume 91.7 82.9 - 93.1 fL [facility] Mean Cell Hemoglobin 31.3 27.5 - 32.1 pg [facility] Mean Cell Hemoglobin Concentration 34.1 32.0 - 35.7 g/dL [facility] Platelet 153 145 - 357 x10(3)/ L [facility] RDW Standard Deviation 49.3(H) 36.0 - 45.0 fL [facility] RDW coefficient of variation 14.7(H) 11.4 - 13.8 % [facility] Mean Platelet Volume 10.0 7.6 - 12.9 fL [facility] NRBC% auto 0.0 % [facility] NRBC Absolute 0.000 0.000 - 0.000 x10(3)/mc L [facility] Blood 07/24/2022 9:15 PM EDT 07/24/2022 9:26 PM EDT Narrative Resulting Agency Comment Spec In Lab Christiano Bah MD HEMATOLOGY ORDERABLE S [facility] [address] * Antibody screen (07/24/2022 9:15 PM EDT) Ab Screen Interp Negative [facility] Expires at [id number] on: 07/27/2022 [facility] Blood 07/24/2022 9:15 PM EDT 07/24/2022 9:24 PM EDT Narrative Resulting Agency Comment Spec In Lab Christiano Bah MD BLOOD BANK LAB ORDER TABITHA Performing Organization Address City/[facility]/ZIP Co de Phone Number [facility] [place] [address] * ABO/Rh Typing (07/24/2022 9:15 PM EDT) ABORH Type O Pos [facility] Blood 07/24/2022 9:15 PM EDT 07/24/2022 9:24 PM EDT Narrative Resulting Agency Comment Spec In Lab Christiano Bah MD BLOOD BANK LAB ORDER TABITHA [facility] [address] * (ABNORMAL) Heparin (unfractionated) Level (07/24/2022 9:15 PM EDT) UF Heparin 1.05(Crit ical) IU/mL [facility] Comment: Critical Result called by ?? ALICIA CRITICAL Results read back by: ? Called by: GIULIANA, Read back by: Afshan Estrella, Date/Time:07/24/22 22:16. at 2022-07-24 22:16:55 Heparin (anti-Xa) levels should be determined in a plasma sample that has been drawn 6 hours after a dose change to approximate steady-state for continuous heparin infusions. Indication specific Heparin (anti-Xa) levels based on order set selection: Acute DVT or PE treatment: 0.3 ? 0.7 IU/mL Thrombosis Prevention (eg. atrial fibrillation, george-procedural bridging, mechanical valves): 0.3 ? 0.7 IU/mL Acute Coronary Syndrome: 0.3 ? 0.7 IU/mL Stroke Indications: 0.3 ? 0.5 IU/mL Ultra-low intensity (select indications in cardiac surgery): 0.1 ? 0.3 IU/mL Blood 07/24/2022 9:15 PM EDT 07/24/2022 9:26 PM EDT Narrative Resulting Agency Comment Spec In Lab April Turner MD HEMATOLOGY ORDERABLE S Performing Organization Address City/State/[facility] Co de Phone Number [facility] [address] * (ABNORMAL) APTT (07/24/2022 9:15 PM EDT) [facility] Signature Partial Thromboplastin Time >160(Crit ical) 25 - 37 sec [facility] Comment: Critical Result called by ?? ZELABM CRITICAL Results read back by: ? Called by: GIULIANA, Read back by: Afshan Estrella, Date/Time:07/24/22 22:16. at 2022-07-24 22:16:56 The PTT is NOT appropriate for heparin monitoring. Use the Anti-Xa level for heparin monitoring (HEP UFH) or LMWH monitoring (HEP LMW). A PTT less than 37 seconds generally indicates adequate hemostasis. Blood 07/24/2022 9:15 PM EDT 07/24/2022 9:26 PM EDT Narrative Resulting Agency Comment Spec In Lab April Turner MD HEMATOLOGY ORDERABLE S Performing Organization Address [facility] Co de Phone Number [facility] [address] * (ABNORMAL) Prothrombin Time (07/24/2022 9:15 PM EDT) Prothrombin Time 13.2(H) 9.4 - 12.5 sec [facility] International Normalization Ratio 1.2 [facility] Comment: An INR <2.0 indicates adequate procoagulant activity for hemostasis in most patients without underlying bleeding disorders, though the INR may not adequately reflect hemostatic capacity in patients with liver disease and synthetic impairment. The recommended target INR range for therapeutic anticoagulation is 2.0 ? 3.0 for most applications, though lower and higher ranges may be appropriate depending on clinical circumstances. Blood 07/24/2022 9:15 PM EDT 07/24/2022 9:26 PM EDT Narrative Resulting Agency Comment Spec In Lab April Turner MD HEMATOLOGY ORDERABLE S Performing Organization Address [facility] Co de Phone Number [facility] [place] [address] * (ABNORMAL) Comprehensive metabolic panel (non-fasting) (07/24/2022 9:15 PM EDT) Glucose 73 65 - 199 mg/dL [facility] Comment:Diabetes: >=200 mg/d L plus symptoms Blood Urea Nitrogen 23(H) 10 - 20 mg/dL [facility] Creatinine 1.05 0.80 - 1.50 mg/dL [facility] Sodium 139 135 - 145 mmol/L [facility] Potassium 3.9 3.5 - 5.0 mmol/L [facility] Comment: Please note: ??Patients with WBC >100,000 may have falsely elevated Potassium levels. ??For accurate Potassium quantification in these patients send serum separator tube (gold top) for subsequent determinations. ??Contact the Clinical Chemistry Laboratory if there are any questions. Chloride 107 98 - 107 mmol/L [facility] Carbon Dioxide 20(L) 22 - 31 mmol/L [facility] Anion Gap 12 5 - 15 mmol/L [facility] Calcium 8.7 8.5 - 10.5 mg/dL [facility] Protein, Total 6.7 6.1 - 8.0 g/dL [facility] Albumin 3.7 3.2 - 5.2 g/dL [facility] Aspartate Aminotransferase 17 0 - 39 unit/L [facility] Alanine Aminotransferase 13 0 - 55 unit/L [facility] Alkaline Phosphatase 77 40 - 130 unit/L [facility] Bilirubin, Total 0.4 0.2 - 1.3 mg/dL [facility] Est Glomerular Filtration Rate 84 >=60 mL/min/1. 73 m?? [facility] Comment: This patient's estimated GFR was [...] and symptoms in addition to eGFR. Blood 07/24/2022 9:15 PM EDT 07/24/2022 9:26 PM EDT Narrative Resulting Agency Comment Spec In Lab April Turner MD CHEMISTRY ORDERABLES Performing Organization Address City/State/[facility] Co de Phone Number [facility] [address] documented in this encounter Visit Diagnoses Diagnosis Aortic disorder- Primary Unspecified disorders of arteries and arterioles Aortic disorder Unspecified disorders of arteries and arterioles Aortic occlusion Aortic disorder Unspecified disorders of arteries and arterioles documented in this encounter Admitting Diagnoses Diagnosis Aortic disorder Unspecified disorders of arteries and arterioles documented in this encounter Administered Medications Inactive Administered Medications - up to 3 most recent administrations Medication Order MAR Action Action Date Dose Rate Site acetaminophen (Ofirmev) (1,000 mg/100 mL) infusion 1,000 mg 1,000 mg, Intravenous, at 400 mL/hr, Administer over 15 Minutes, EVERY 8 HOURS SCHEDULED, 3 doses, First dose on Sun07/25/22 at 1515, Last dose on Sun07/26/22 at 0600, Maximum dose of acetaminophen is 4,000 mg from all sources in 24 hours. When ordered for pain, acetaminophen should be given even when other ordered pain medications are indicated. , Routine, Is ketorolac (Toradol) IV contraindicated? Yes, Can this patient tolerate oral medications or suppositories? No Given 07/26/2022 5:35 AM EDT 1,000 mg 400 mL/hr Given 07/25/2022 9:24 PM EDT 1,000 mg 400 mL/hr Given 07/25/2022 4:37 PM EDT 1,000 mg 400 mL/hr acetaminophen (Ofirmev) (1,000 mg/100 mL) infusion 1,000 mg 1,000 mg, Intravenous, at 400 mL/hr, Administer over 15 Minutes, EVERY 8 HOURS SCHEDULED, 5 doses, First dose (after last reorder) on Sun07/26/22 at 2245, Last dose on Sun07/28/22 at 0600, Maximum dose of acetaminophen is 4,000 mg from all sources in 24 hours. When ordered for pain, acetaminophen should be given even when other ordered pain medications are indicated. , Routine, Is ketorolac (Toradol) IV contraindicated? Yes, Can this patient tolerate oral medications or suppositories? No Given 07/27/2022 5:17 AM EDT 1,000 mg 400 mL/hr Given 07/26/2022 10:14 PM EDT 1,000 mg 400 mL/hr acetaminophen (Ofirmev) (1,000 mg/100 mL) infusion 1,000 mg 1,000 mg, Intravenous, at 400 mL/hr, Administer over 15 Minutes, EVERY 6 HOURS SCHEDULED, 4 doses, First dose (after last modification) on Sun07/27/22 at 1200, Last dose on Sun07/28/22 at 0600, Maximum dose of acetaminophen is 4,000 mg from all sources in 24 hours. When ordered for pain, acetaminophen should be given even when other ordered pain medications are indicated. , Routine, Is ketorolac (Toradol) IV contraindicated? Yes, Can this patient tolerate oral medications or suppositories? No Given 07/28/2022 6:14 AM EDT 1,000 mg 400 mL/hr Given 07/28/2022 12:20 AM EDT 1,000 mg 400 mL/hr Given 07/27/2022 5:44 PM EDT 1,000 mg 400 mL/hr acetaminophen (Ofirmev) (1,000 mg/100 mL) infusion 1,000 mg 1,000 mg, Intravenous, at 400 mL/hr, Administer over 15 Minutes, EVERY 6 HOURS SCHEDULED, 4 doses, First dose (after last reorder) on Sun07/28/22 at 0830, Last dose on 07/29/22 at 0000, Maximum dose of acetaminophen is 4,000 mg from all sources in 24 hours. When ordered for pain, acetaminophen should be given even when other ordered pain medications are indicated. , Routine, Is ketorolac (Toradol) IV contraindicated? Yes, Can this patient tolerate oral medications or suppositories? No Given 07/29/2022 1:00 AM EDT 1,000 mg 400 mL/hr Given 07/28/2022 6:15 PM EDT 1,000 mg 400 mL/hr Given 07/28/2022 11:32 AM EDT 1,000 mg 400 mL/hr acetaminophen (Ofirmev) (1,000 mg/100 mL) infusion 1,000 mg 1,000 mg, Intravenous, at 400 mL/hr, Administer over 15 Minutes, EVERY 6 HOURS SCHEDULED, 4 doses, First dose (after last reorder) on 07/29/22 at 1200, Last dose on 07/30/22 at 0600, Maximum dose of acetaminophen is 4,000 mg from all sources in 24 hours. When ordered for pain, acetaminophen should be given even when other ordered pain medications are indicated. , Routine, Is ketorolac (Toradol) IV contraindicated? Yes, Can this patient tolerate oral medications or suppositories? No Given 07/30/2022 5:59 AM EDT 1,000 mg 400 mL/hr Given 07/30/2022 12:20 AM EDT 1,000 mg 400 mL/hr Given 07/29/2022 6:36 PM EDT 1,000 mg 400 mL/hr acetaminophen (Tylenol) tablet 1,000 mg 1,000 mg, Oral, EVERY 6 HOURS, First dose on 07/30/22 at 1200, Until Discontinued, Maximum dose of acetaminophen is 4,000 mg from all sources in 24 hours. When ordered for pain, acetaminophen should be given even when other ordered pain medications are indicated. , Routine Given 08/02/2022 11:36 AM EDT 1,000 mg Given 08/02/2022 5:15 AM EDT 1,000 mg Given 08/01/2022 11:26 PM EDT 1,000 mg acetaminophen (Tylenol) tablet 975 mg 975 mg, Oral, EVERY 8 HOURS PRN, Starting on Sun07/24/22 at 2226, Until Sun07/25/22 at 1500, Pain, Maximum dose of acetaminophen is 4000 mg from all sources in 24 hours. When ordered for pain, acetaminophen should be given even when other ordered pain medications are indicated. , Routine Given 07/24/2022 11:11 PM EDT 975 mg albumin (human) 5% 250 mL intravenous solution 12.5 g, Intravenous, EVERY 30 MIN, 2 doses, First dose on Sun07/25/22 at 1715, Last dose on Sun07/25/22 at 1745, 1 bottle (unit) = 12.5 grams / 250 mL (Total Dose = 25 grams = 2 bottles), Routine New Bag 07/25/2022 5:16 PM EDT 12.5 g New Bag 07/25/2022 4:30 PM EDT 12.5 g apixaban (Eliquis) tablet 10 mg 10 mg, Oral, ONCE, 1 dose, On Sun08/02/22 at 1145, Anticoagulant, Routine, Restricted anticoagulant, choose the most appropriate response: Appoved indication of DVT and/or PE Given 08/02/2022 11: 36 AM EDT 10 mg aspirin chewable tablet 81 mg 81 mg, Oral, DAILY, First dose on Sun07/30/22 at 1000, Until Discontinued, Routine Given 08/02/2022 9:21 AM EDT 81 mg Given 08/01/2022 8:40 AM EDT 81 mg Given 07/31/2022 8:13 AM EDT 81 mg aspirin suppository 300 mg 300 mg, Rectal, DAILY, First dose on Sun07/26/22 at 1100, Until Discontinued, Routine Given 07/29/2022 8:40 AM EDT 300 mg Given 07/28/2022 8:31 AM EDT 300 mg Given 07/27/2022 9:27 AM EDT 300 mg atenoloL (Tenormin) tablet 50 mg 50 mg, Oral, DAILY, First dose on 07/30/22 at 1000, Until Discontinued, Routine Given 08/02/2022 9:20 AM EDT 50 mg Given 08/01/2022 8:41 AM EDT 50 mg Given 07/31/2022 8:14 AM EDT 50 mg atorvastatin (Lipitor) tablet 40 mg 40 mg, Oral, EVERY EVENING, First dose on Sun07/30/22 at 1700, Until Discontinued, Routine Given 08/01/2022 4:21 PM EDT 40 mg Given 07/31/2022 5:27 PM EDT 40 mg Given 07/30/2022 4:06 PM EDT 40 mg bisacodyL (Dulcolax) suppository 10 mg 10 mg, Rectal, DAILY, First dose on 07/29/22 at 1100, Until Discontinued, Routine Given 07/29/2022 11:42 AM EDT 10 mg clonazePAM (KlonoPIN) tablet 0.5 mg 0.5 mg, Oral, 3 TIMES DAILY PRN, Starting on Sun07/24/22 at 2228, Until Sun08/02/22 at 1509, Anxiety, DO NOT SPLIT, CRUSH OR OPEN Regular tablets should be swallowed whole with water. Disintegrating tablets (ODTs) should be placed in mouth; may be swallowed with or without water. May also be dissolved in small volume (~30 mL) of water if going to be administered via feeding tube., Routine Given 07/30/2022 4:06 PM EDT 0.5 mg Given 07/30/2022 9:37 AM EDT 0.5 mg Given 07/29/2022 11:42 AM EDT 0.5 mg clonazePAM (KlonoPIN) tablet 1 mg 1 mg, Oral, 3 TIMES DAILY, First dose on 07/30/22 at 1000, Until Discontinued, DO NOT SPLIT, CRUSH OR OPEN, Routine Given 08/02/2022 9:21 AM EDT 1 mg Given 08/01/2022 8:10 PM EDT 1 mg Given 08/01/2022 3:33 PM EDT 1 mg furosemide (Lasix) (10 mg/mL) injection 20 mg 20 mg, Intravenous, ONCE, 1 dose, On 07/29/22 at 1100 Given 07/29/2022 10:35 AM EDT 20 mg furosemide (Lasix) (10 mg/mL) injection 20 mg 20 mg, Intravenous, ONCE, 1 dose, On Sun07/30/22 at 0845 Given 07/30/2022 9:44 AM EDT 20 mg furosemide (Lasix) (10 mg/mL) injection 20 mg 20 mg, Intravenous, ONCE, 1 dose, On Sun07/30/22 at 1700 Given 07/30/2022 4:21 PM EDT 20 mg heparin (porcine) (1,000 units/mL) injection 0-8,000 Units 0-8,000 Units, Intravenous, BOLUS PER HEPARIN PROTOCOL, Starting on Sun07/31/22 at 1117, Until Sun08/02/22 at 1300, Per Protocol, START ADJUSTMENT SCHEDULE 6 HOURS AFTER STARTING INFUSION Bolus doses are rounded to the nearest 100 units. If Heparin UFH Level is: - Less than 0.1 international unit/mL: Bolus 80 units/kg (Maximum of 8,000 units) = Bolus 7,200 units - 0.1 - 0.19 International unit/mL: Bolus 40 units/kg (Maximum of 4,000 units) = Bolus 3,600 units - Equal to or greater than 0.2 international unit/mL: No Bolus, Routine Given 08/01/2022 10:56 AM EDT 3,600 Units Given 07/31/2022 8:53 PM EDT 7,200 Units heparin (porcine) (5,000 units/1 mL) subcutaneous injection 5,000 Units 5,000 Units, Subcutaneous, EVERY 8 HOURS SCHEDULED, First dose on Sun07/26/22 at 1400, Until Discontinued, Routine Given 07/26/2022 1:28 PM EDT 5,000 Units heparin (porcine) 50 units/mL in dextrose 5% 500 mL infusion 0-5,000 Units/hr (0-100 mL/hr), Intravenous, CONTINUOUS, Starting on Sun07/24/22 at 2106, Until Sun07/26/22 at 1003, Begin infusion at 1,650 units per hr (18 units/kg/hr). Maximum initial infusion rate is 2,000 units/hr. Infusion doses are rounded to the nearest 50 units. Target Heparin UFH Level (anti-Xa activity) = 0.3 - 0.7 international unit/mL Start adjustment schedule 6 hours after starting infusion. If Heparin UFH Level is: - Less than 0.1 international unit/mL: Administer PRN bolus and increase rate by 350 units per hr (4 units/kg/hr) - 0.1 - 0.19 international unit/mL: Administer PRN bolus and increase rate by 200 units per hr (2 units/kg/hr) - 0.2 - 0.29 international unit/mL: NO BOLUS and increase rate by 200 units per hr (2 units/kg/hr) - 0.3 - 0.7 international unit/mL: No change - 0.71 - 0.79 international unit/mL: NO BOLUS and decrease rate by 100 units per hr (1 units/kg/hr) - 0.8 - 0.99 international unit/mL: NO BOLUS and decrease rate by 200 units per hr (2 units/kg/hr) - Greater than or equal to 1.00 international unit/mL: Hold infusion for 60 minutes then decrease rate by 300 units per hour (3 units/kg/hr) Repeat Heparin UFH Level 6 hours after initiating heparin. Then 6 hours after each dose adjustment. When 2 consecutive Heparin UFH Level within target range of 0.3 - 0.7 international unit/mL, change Heparin UFH Level to once every 24 hours with A.M. labs while on heparin. RN to order required Heparin UFH Level - Per Protocol, Routine Rate/Dose Verify 07/25/2022 4:54 AM EDT 1,350 Units/hr 27 mL/hr Rate/Dose Change 07/24/2022 11:30 PM EDT 1,350 Units/hr 27 mL/hr New Bag 07/24/2022 9:28 PM EDT 1,650 Units/hr 33 mL/hr heparin (porcine) 50 units/mL in dextrose 5% 500 mL infusion 500 Units/hr (10 mL/hr), Intravenous, CONTINUOUS, Starting on Sun07/26/22 at 1745, Until 07/31/22 at 1118, Routine New Bag 07/30/2022 4:10 PM EDT 500 Units/hr 10 mL/hr Rate/Dose Verify 07/30/2022 4:12 AM EDT 500 Units/hr 10 mL /hr Rate/Dose Verify 07/30/2022 12:22 AM EDT 500 Units/hr 10 m L/hr heparin (porcine) 50 units/mL in dextrose 5% 500 mL infusion 0-5,000 Units/hr (0-100 mL/hr), Intravenous, CONTINUOUS, Starting on Sun07/31/22 at 1215, Until Sun08/02/22 at 1300, Begin infusion at 500 units per hr (18 units/kg/hr). Maximum initial infusion rate is 2,000 units/hr. Infusion doses are rounded to the nearest 50 units. Target Heparin UFH Level (anti-Xa activity) = 0.3 - 0.7 international unit/mL Start adjustment schedule 6 hours after starting infusion. If Heparin UFH Level is: - Less than 0.1 international unit/mL: Administer PRN bolus and increase rate by 350 units per hr (4 units/kg/hr) - 0.1 - 0.19 international unit/mL: Administer PRN bolus and increase rate by 200 units per hr (2 units/kg/hr) - 0.2 - 0.29 international unit/mL: NO BOLUS and increase rate by 200 units per hr (2 units/kg/hr) - 0.3 - 0.7 international unit/mL: No change - 0.71 - 0.79 international unit/mL: NO BOLUS and decrease rate by 100 units per hr (1 units/kg/hr) - 0.8 - 0.99 international unit/mL: NO BOLUS and decrease rate by 200 units per hr (2 units/kg/hr) - Greater than or equal to 1.00 international unit/mL: Hold infusion for 60 minutes then decrease rate by 250 units per hour (3 units/kg/hr) Repeat Heparin UFH Level 6 hours after initiating heparin. Then 6 hours after each dose adjustment. When 2 consecutive Heparin UFH Level within target range of 0.3 - 0.7 international unit/mL, change Heparin UFH Level to once every 24 hours with A.M. labs while on heparin. RN to order required Heparin UFH Level - Per Protocol, Routine New Bag 08/02/2022 3:41 AM EDT 1,250 Units/hr 25 mL/hr Rate/Dose Verify 08/01/2022 6:22 PM EDT 1,250 Units/hr 25 mL/hr New Bag 08/01/2022 11:02 AM EDT 1,250 Units/hr 25 mL/hr hydrALAZINE (Apresoline) (20 mg/mL) injection 10 mg 10 mg, Intravenous, EVERY 4 HOURS PRN, Starting on Ivis 07/27/22 at 0836, Until Sun08/02/22 at 1509, High Blood Pressure, for SBP > 160, hold for HR > 90, Routine Given 08/01/2022 10:42 AM EDT 10 mg Given 07/30/2022 6:08 AM EDT 10 mg HYDROmorphone (Dilaudid) (0.2 mg/1 mL) injection syringe 0.2 mg 0.2 mg, Intravenous, EVERY 4 HOURS PRN, Starting on 07/30/22 at 0909, Until Sun08/02/22 at 1509, Pain, For break through pain not relieved with Oxycodone, Routine Given 08/01/2022 11:47 AM EDT 0.2 mg HYDROmorphone (Dilaudid) (0.5 mg/0.5 mL) injection syringe 0.2 mg 0.2 mg, Intravenous, EVERY 4 HOURS PRN, Starting on 07/25/22 at 1451, Until Sun07/26/22 at 0008, Pain, mild pain (1-3), May give an additional 0.2 mg in 30 minutes once if pain not relieved., Routine Given 07/25/2022 4:29 PM EDT 0.2 mg HYDROmorphone (Dilaudid) (0.5 mg/0.5 mL) injection syringe 0.2 mg 0.2 mg, Subcutaneous, EVERY 4 HOURS PRN, Starting on Sun07/26/22 at 0008, Until Sun07/26/22 at 2154, Pain, mild pain (1-3), May give an additional 0.2 mg in 30 minutes once if pain not relieved., Routine Given 07/26/2022 3:52 AM EDT 0.2 mg Given 07/26/2022 1:26 AM EDT 0.2 mg HYDROmorphone (Dilaudid) (0.5 mg/0.5 mL) injection syringe 0.2 mg 0.2 mg, Intravenous, EVERY 4 HOURS PRN, Starting on Sun07/26/22 at 2154, Until Ivis 07/27/22 at 0936, Pain, mild pain (1-3), May give an additional 0.2 mg in 30 minutes once if pain not relieved., Routine Given 07/27/2022 4:44 AM EDT 0.2 mg Given 07/26/2022 11:08 PM EDT 0.2 mg HYDROmorphone (Dilaudid) (0.5 mg/0.5 mL) injection syringe 0.2 mg 0.2 mg, Intravenous, EVERY 3 HOURS PRN, Starting on Ivis 07/27/22 at 0945, Until Ivis 07/27/22 at 1428, Pain, mild pain (1-3), May give an additional 0.2 mg in 30 minutes once if pain not relieved., Routine Given 07/27/2022 2:10 PM EDT 0.2 mg HYDROmorphone (Dilaudid) (0.5 mg/0.5 mL) injection syringe 0.4 mg 0.4 mg, Intravenous, EVERY 4 HOURS PRN, Starting on Sun07/25/22 at 1451, Until Sun07/26/22 at 0008, Pain, moderate pain (4-6), May give an additional 0.2 mg in 30 minutes once if pain not relieved., Routine Given 07/25/2022 10:46 PM EDT 0.4 mg HYDROmorphone (Dilaudid) (1 mg/mL) in sodium chloride 0.9% 50 mL [employer]IST infusion syringe Intravenous, B[employer] SERVICES SPECIALIST ONLY, Starting on Ivis 07/27/22 at 1515, Until 07/30/22 at 0908 New Syringe/Cartridge 07/27/2022 3:22 PM EDT 50 mg HYDROmorphone (Dilaudid) (1 mg/mL) injection syringe 0.6 mg 0.6 mg, Intravenous, EVERY 4 HOURS PRN, Starting on Sun07/24/22 at 2104, Until Sun07/24/22 at 2226, Pain, severe pain (7-10), May give an additional 0.2 mg in 30 minutes once if pain not relieved., Routine Given 07/24/2022 9:27 PM EDT 0.6 mg HYDROmorphone (Dilaudid) (1 mg/mL) injection syringe 0.6 mg 0.6 mg, Intravenous, EVERY 4 HOURS PRN, Starting on Sun07/25/22 at 1451, Until Sun07/26/22 at 0008, Pain, severe pain (7-10), May give an additional 0.2 mg in 30 minutes once if pain not relieved., Routine Given 07/25/2022 6:03 PM EDT 0.6 mg HYDROmorphone (Dilaudid) (1 mg/mL) injection syringe 0.6 mg 0.6 mg, Subcutaneous, EVERY 4 HOURS PRN, Starting on Sun07/26/22 at 0008, Until Sun07/26/22 at 2154, Pain, severe pain (7-10), May give an additional 0.2 mg in 30 minutes once if pain not relieved., Routine Given 07/26/2022 5:57 PM EDT 0.6 mg Given 07/26/2022 1:28 PM EDT 0.6 mg Given 07/26/2022 6:35 AM EDT 0.6 mg HYDROmorphone (Dilaudid) (1 mg/mL) injection syringe 0.6 mg 0.6 mg, Intravenous, EVERY 4 HOURS PRN, Starting on Sun07/26/22 at 2154, Until Ivis 07/27/22 at 0936, Pain, severe pain (7-10), May give an additional 0.2 mg in 30 minutes once if pain not relieved., Routine Given 07/27/2022 6:42 AM EDT 0.6 mg Given 07/27/2022 2:10 AM EDT 0.6 mg Given 07/26/2022 10:12 PM EDT 0.6 mg HYDROmorphone (Dilaudid) (1 mg/mL) injection syringe 0.6 mg 0.6 mg, Intravenous, EVERY 3 HOURS PRN, Starting on Ivis 07/27/22 at 0945, Until Ivis 07/27/22 at 1428, Pain, severe pain (7-10), May give an additional 0.2 mg in 30 minutes once if pain not relieved., Routine Given 07/27/2022 1:32 PM EDT 0.6 mg Given 07/27/2022 9:47 AM EDT 0.6 mg iohexoL (Omnipaque) (350 mg/mL) solution 0-200 mL 0-200 mL, Intravenous, ONCE PRN, 1 dose, Starting on Sun07/26/22 at 0736, Until Sun07/26/22 at 0736, Per Protocol, Warning Vesicant/Irritant Medication , Radiology Contrast, Routine Given 07/26/2022 7:36 AM EDT 150 mLs ipratropium-albuteroL (Duoneb) 0.5 mg-3 mg(2.5 mg base)/3 mL nebulizer solution 3 mL 3 mL, Nebulization, 4 TIMES DAILY PRN, Starting on Sun07/25/22 at 1647, Until Sun08/02/22 at 1509, Wheezing, Routine Given 07/27/2022 11:47 AM EDT 3 mLs Given 07/26/2022 10:35 PM EDT 3 mLs Given 07/25/2022 8:36 PM EDT 3 mLs labetaloL (Normodyne) (5 mg/mL) injection solution 10 mg 10 mg, Intravenous, EVERY 4 HOURS PRN, Starting on Ivis 07/27/22 at 0837, Until Sun08/02/22 at 1509, High Blood Pressure, for SBP > 160, hold for HR < 60. Give as second line to hydralazine or when HR paramter not met for hydral, Routine Given 08/01/2022 11:26 AM EDT 10 mg Given 07/29/2022 8:17 PM EDT 10 mg Given 07/29/2022 8:37 AM EDT 10 mg lactated Ringers 1,000 mL IV bolus Intravenous, ONCE, 1 dose, On Sun07/25/22 at 1815, After 2nd bottle of albumin. New Bag 07/25/2022 5:32 PM EDT lactated Ringers 1,000 mL IV bolus Intravenous, ONCE, 1 dose, On Sun07/25/22 at 2215 New Bag 07/25/2022 9:19 PM EDT 999 mL/hr lactated Ringers 1,000 mL IV bolus Intravenous, ONCE, 1 dose, On Sun07/25/22 at 2330, After 2nd bottle of albumin. New Bag 07/25/2022 10:56 PM EDT lactated Ringers 1,000 mL IV bolus Intravenous, ONCE, 1 dose, On Sun07/26/22 at 1215 New Bag 07/26/2022 12:29 PM EDT lactated ringers infusion 1,000 mL, at 100 mL/hr, Intravenous, CONTINUOUS, Starting on Sun07/24/22 at 2315, Until Sun07/25/22 at 1451 New Bag 07/24/2022 11:13 PM EDT 1,000 mL s 100 mL/hr lactated ringers infusion 200 mL/hr, Intravenous, CONTINUOUS, Starting on Sun07/25/22 at 1545, Until Sun07/27/22 at 0758 New Bag 07/27/2022 6:32 AM EDT 200 mL/hr 200 mL/hr New Bag 07/27/2022 12:46 AM EDT 200 mL/hr 200 mL/hr New Bag 07/26/2022 6:17 PM EDT 200 mL/hr 200 mL/hr lactated ringers infusion 100 mL/hr, Intravenous, CONTINUOUS, Starting on Sun07/27/22 at 0845, Until Sun07/28/22 at 0557 Rate/Dose Verify 07/28/2022 2:00 AM EDT 100 mL/hr 100 mL/hr Rate/Dose Verify 07/27/2022 8:00 PM EDT 100 mL/hr 100 mL/ hr New Bag 07/27/2022 2:34 PM EDT 100 mL/hr 100 mL/hr lidocaine (pf) (Xylocaine) (4 mg/mL) in dextrose 5% 500 mL infusion 1.5 mg/kg/hr ? 93 kg (34.875 mL/hr, rounded to 34.9 mL/hr), Intravenous, Administer over 24 Hours, CONTINUOUS, Starting on Sun07/25/22 at 1745, Until Sun07/26/22 at 1744, For Pain Indication., Routine, Please select the consult service recommending this therapy. APS Restarted 07/26/2022 10:30 AM EDT 1.5 mg/kg/hr 34.9 mL/hr New Bag 07/25/2022 5:22 PM EDT 1.445 mg/kg/hr 33.6 mL/h r lidocaine (Xylocaine) 1% (10 mg/mL) injection 3 mg 3 mg (0.3 mL), Subcutaneous, ONCE PRN, 1 dose, Starting on Sun07/24/22 at 2057, Until Sun08/02/22 at 1509, for discomfort with PIV insertion, Routine losartan (Cozaar) tablet 25 mg 25 mg, Oral, DAILY, First dose on Sun07/30/22 at 1000, Until Discontinued, Routine Given 08/02/2022 9:21 AM EDT 25 mg Given 08/01/2022 8:41 AM EDT 25 mg Given 07/31/2022 8:13 AM EDT 25 mg magnesium sulfate 2 g in sterile water 50 mL infusion 2 g, Intravenous, ONCE, 1 dose, On Sun07/25/22 at 0645, Administer over 120 Minutes New Bag 07/25/2022 4:48 PM EDT 2 g 25 mL/hr magnesium sulfate 2 g in sterile water 50 mL infusion 2 g, Intravenous, EVERY 2 HOURS PRN, Starting on Sun07/25/22 at 1452, Until Ivis 07/27/22 at 0758, Administer over 120 Minutes, Hypomagnesemia, Administer one 2 g IV bag, over 120 minutes for serum magnesium of 0.65 - 0.79 mMol/L. New Bag 07/27/2022 2:10 AM EDT 2 g 25 mL/hr magnesium sulfate 2 g in sterile water 50 mL infusion 2 g, Intravenous, ONCE, 1 dose, On Sun07/28/22 at 0645, Administer over 120 Minutes New Bag 07/28/2022 6:15 AM EDT 2 g 25 mL/hr niCARdipine (Cardene) (0.2 mg/mL) in sodium chloride 200 mL infusion 0-15 mg/hr (0-75 mL/hr), Intravenous, CONTINUOUS, Starting on Sun07/25/22 at 1545, Until Sun07/27/22 at 0758, Titrate to SBP greater than 100 and less than 140 mmHg. Start at 5 mg/hour, titrate to maintain target SBP, adjust infusion rate by 2.5 mg/hour every 5 minutes to a maximum of 15 mg/hour. Rotate IV site every 12 hours, Routine Restarted 07/27/2022 6:39 AM EDT 5 mg/hr 25 mL/hr New Bag 07/27/2022 2:30 AM EDT 5 mg/hr 25 mL/hr Restarted 07/27/2022 1:50 AM EDT 5 mg/hr 25 mL/hr ondansetron (pf) (Zofran) (2 mg/mL) injection 4 mg 4 mg, Intravenous, EVERY 30 MIN PRN, 2 doses, Starting on Sun07/27/22 at 1428, Until 07/29/22 at 0151, Nausea, May repeat dose once in 30 minutes if no relief from previous dose. If multiple antiemetics are ordered, use ondansetron first, prochlorperazine second. Per [employer] order. Given 07/29/2022 1:51 AM EDT 4 mg Given 07/29/2022 1:13 AM EDT 4 mg ondansetron ODT (Zofran-ODT) disintegrating tablet 4 mg 4 mg, Oral, ONCE, 1 dose, On Sun08/01/22 at 0915, Routine Given 08/01/2022 8:31 AM EDT 4 mg oxyCODONE (Roxicodone) tablet 10-15 mg 10-15 mg, Oral, EVERY 4 HOURS PRN, Starting on Sun07/30/22 at 0909, Until Sun08/02/22 at 1509, Pain, severe pain (7-10), Initial dose 10mg. If pain control not adequate in 60 minutes, give additional 5mg., Routine Given 08/01/2022 10:38 PM EDT 10 m g Given 08/01/2022 4:22 PM EDT 10 mg Given 08/01/2022 10:40 AM EDT 10 mg oxyCODONE (Roxicodone) tablet 5 mg 5 mg, Oral, EVERY 4 HOURS PRN, Starting on Sun07/24/22 at 2225, Until Sun07/25/22 at 1450, Pain, Prn for pain >5/10 unrelieved by other available medications., Routine Given 07/24/2022 11:11 PM EDT 5 mg oxyCODONE (Roxicodone) tablet 5-10 mg 5-10 mg, Oral, EVERY 4 HOURS PRN, Starting on Sun07/30/22 at 0909, Until Sun08/02/22 at 1509, Pain, moderate pain (4-6), Initial dose 5mg. If pain control not adequate in 60 minutes, give additional 5mg., Routine Given 08/02/2022 12:51 PM EDT 5 mg Given 08/02/2022 7:44 AM EDT 5 mg potassium bicarbonate (Effer-K) effervescent tablet 40 mEq 40 mEq, Oral, ONCE, On Sun08/01/22 at 0515, 1 dose, DO NOT GIVE UNDILUTED MEDICATION TO PATIENT. Dissolve tablet completely in 3-4 ounces of cold water or juice. May further dilute if adverse GI effects occur. Given 08/01/2022 5:03 AM EDT 40 mEq potassium bicarbonate (Effer-K) effervescent tablet 40 mEq 40 mEq, Oral, ONCE, On Sun08/02/22 at 1100, 1 dose, DO NOT GIVE UNDILUTED MEDICATION TO PATIENT. Dissolve tablet completely in 3-4 ounces of cold water or juice. May further dilute if adverse GI effects occur. Given 08/02/2022 10:21 AM EDT 40 mEq potassium chloride 10 mEq in sterile water 100 mL infusion 10 mEq, Intravenous, EVERY 2 HOURS, 3 doses, First dose on Sun07/28/22 at 0645, Last dose on Sun07/28/22 at 1045, Administer over 60 Minutes, Warning Vesicant/Irritant Medication New Bag 07/28/2022 9:59 AM EDT 10 mEq 100 mL/hr New Bag 07/28/2022 8:25 AM EDT 10 mEq 100 mL/hr New Bag 07/28/2022 6:15 AM EDT 10 mEq 100 mL/hr potassium chloride 10 mEq in sterile water 100 mL infusion 10 mEq, Intravenous, EVERY 2 HOURS, 1 dose, First dose on Sun07/31/22 at 0845, Administer over 60 Minutes, Warning Vesicant/Irritant Medication New Bag 07/31/2022 8:34 AM EDT 10 mEq 100 mL/hr potassium chloride 10 mEq in sterile water 100 mL infusion 10 mEq, Intravenous, EVERY HOUR, 4 doses, First dose (after last reorder) on Sun08/01/22 at 0700, Last dose on Sun08/01/22 at 1000, Administer over 60 Minutes, Warning Vesicant/Irritant Medication New Bag 08/01/2022 10:34 AM EDT 10 mEq 100 mL/hr New Bag 08/01/2022 9:07 AM EDT 10 mEq 100 mL/hr New Bag 08/01/2022 8:03 AM EDT 10 mEq 100 mL/hr potassium chloride 10 mEq in sterile water 100 mL infusion 10 mEq, Intravenous, EVERY HOUR, 2 doses, First dose on Sun08/01/22 at 1715, Last dose on Sun08/01/22 at 1800, Administer over 60 Minutes, Warning Vesicant/Irritant Medication New Bag 08/01/2022 5:42 PM EDT 10 mEq 100 mL/hr New Bag 08/01/2022 4:34 PM EDT 10 mEq 100 mL/hr potassium chloride 10 mEq in sterile water 100 mL infusion 10 mEq, Intravenous, EVERY HOUR, 4 doses, First dose (after last reorder) on Sun08/02/22 at 0815, Last dose on Sun08/02/22 at 1100, Administer over 60 Minutes, Warning Vesicant/Irritant Medication New Bag 08/02/2022 8:06 AM EDT 10 mEq 100 mL/hr potassium chloride 20 mEq in sterile water 100 mL infusion 20 mEq, Intravenous, EVERY 1 HOUR PRN, Starting on Sun07/25/22 at 1856, Until Sun07/27/22 at 0758, Administer over 60 Minutes, hypokalemia, Administer 2 doses for a serum potassium (mMol/L) of 3.3 - 3.8 New Bag 07/27/2022 4:36 AM EDT 20 mEq 100 mL/hr New Bag 07/27/2022 2:09 AM EDT 20 mEq 100 mL/hr New 07/25/2022 9:51 PM EDT 20 mEq 100 mL/hr potassium chloride 20 mEq in sterile water 100 mL infusion 20 mEq, Intravenous, EVERY 2 HOURS, 2 doses, First dose on Sun08/02/22 at 0915, Last dose on Sun08/02/22 at 1115, Administer over 60 Minutes, Warning Vesicant/Irritant Medication New Bag 08/02/2022 9:18 AM EDT 20 mEq 100 mL/hr potassium phosphate 15 mMol in sodium chloride 0.9% 250 mL infusion 15 mmol, Intravenous, ONCE, 1 dose, On Sun07/27/22 at 1200, Administer over 4 Hours, Administer over 4-6 hours New Bag 07/27/2022 11:27 AM EDT 15 mmol 62.5 mL/hr pregabalin (Lyrica) capsule 100 mg 100 mg, Oral, 3 TIMES DAILY, First dose on Sun07/30/22 at 1000, Until Discontinued, Routine Given 08/02/2022 9:20 AM EDT 100 mg Given 08/01/2022 8:10 PM EDT 100 mg Given 08/01/2022 3:33 PM EDT 100 mg senna-docusate (Pericolace) 8.6-50 mg per tablet 2 tablet 2 tablet, Oral, 2 TIMES DAILY, First dose on Sun07/24/22 at 2315, Until Discontinued, Routine Given 08/02/2022 9:20 AM EDT 2 tablets Given 07/30/2022 9:00 PM EDT 2 tablets Given 07/30/2022 9:37 AM EDT 2 tablets sertraline (Zoloft) tablet 200 mg 200 mg, Oral, DAILY, First dose (after last modification) on Sun07/31/22 at 0900, Until Discontinued, Routine Given 08/02/2022 9:21 AM EDT 200 mg Given 08/01/2022 8:38 AM EDT 200 mg Given 07/31/2022 8:13 AM EDT 200 mg sodium chloride 0.9 % (flush) (BD PosiFlush Normal Saline 0.9) flush 5 mL 5 mL, Intravenous, 2 TIMES DAILY, First dose on Sun07/24/22 at 2106, Until Discontinued, Routine Given 08/02/2022 9:22 AM EDT 5 mLs Given 08/01/2022 8:10 PM EDT 5 mLs Given 08/01/2022 8:39 AM EDT 5 mLs sodium chloride 0.9 % (flush) (BD PosiFlush Normal Saline 0.9) flush 5-20 mL 5-20 mL, Intravenous, EVERY 1 MIN PRN, Starting on Sun07/24/22 at 2057, Until Sun08/02/22 at 1509, flush, Flush pertains to all indwelling lines. Flush per protocol found in the job aid using the link provided on this medication record., Routine documented in this encounter Active and Recently Administered Medications Times are shown in EDT. Scheduled Medication Order 07/31/2022 08/01/2022 08/02/2022 acetaminophen (Tylenol) tablet 1,000 mg 1,000 mg, Oral, EVERY 6 HOURS, First dose on Sun07/30/22 at 1200, Until Discontinued, Maximum dose of acetaminophen is 4,000 mg from all sources in 24 hours. When ordered for pain, acetaminophen should be given even when other ordered pain medications are indicated. , Routine 0654 (Given - Provider: Dawn Barnett RN)1200 (Not Given - Provider: Brooklynn Adhikari RN - Reason: Patient/family refused)1727 (Given - Provider: Missy Du)2335 (Given - Provider: Vincent Parham RN) 0503 (Given - Provider: Vincent Parham RN)1147 (Given - Provider: Jim Lamar RN)1714 (Given - Provider: Jim Lamar RN)2326 (Given - Provider: Dawn Barnett RN) 0515 (Given - Provider: Dawn Barnett RN)1136 (Given - Provider: Jim Lamar RN) apixaban (Eliquis) tablet 10 mg (COMPLETED) 10 mg, Oral, ONCE, 1 dose, On Sun08/02/22 at 1145, Anticoagulant, Routine, Restricted anticoagulant, choose the most appropriate response: Appoved indication of DVT and/or PE 1136 (Given - Provider: Jim Lamar RN) aspirin chewable tablet 81 mg 81 mg, Oral, DAILY, First dose on 07/30/22 at 1000, Until Discontinued, Routine 0813 (Given - Provider: Missy Du) 0840 (Given - Provider: Jim Lamar RN) 0921 (Given - Provider: Jim Lamar RN) atenoloL (Tenormin) tablet 50 mg 50 mg, Oral, DAILY, First dose on 07/30/22 at 1000, Until Discontinued, Routine 0814 (Given - Provider: Missy Du) 0841 (Given - Provider: Jim Lamar RN) 0920 (Given - Provider: Jim Lamar RN) atorvastatin (Lipitor) tablet 40 mg 40 mg, Oral, EVERY EVENING, First dose on 07/30/22 at 1700, Until Discontinued, Routine 1727 (Given - Provider: Missy Du) 1621 (Given - Provider: Jim Lamar RN) bisacodyL (Dulcolax) suppository 10 mg 10 mg, Rectal, DAILY, First dose on 6/3/23 at 1100, Until Discontinued, Routine 0900 (Not Given - Provider: Missy Du - Reason: Order parameters not met - Comment: Patient had large BM.) 0900 (Not Given - Provider: Jim Lamar RN - Reason: Patient/family refused) 0900 (Not Given - Provider: Jim Lamar RN - Reason: Patient/family refused) clonazePAM (KlonoPIN) tablet 1 mg 1 mg, Oral, 3 TIMES DAILY, First dose on Sun07/30/22 at 1000, Until Discontinued, DO NOT SPLIT, CRUSH OR OPEN, Routine 0814 (Given - Provider: Missy Du)1500 (Not Given - Provider: Missy Du - Reason: Patient/family refused)2048 (Given - Provider: Vincent Parham RN) 0840 (Given - Provider: Jim Lamar RN)1533 (Given - Provider: Jim Lamar RN)2009 (Given - Provider: Dawn Barnett RN) 0921 (Given - Provider: Jim Lamar RN) losartan (Cozaar) tablet 25 mg 25 mg, Oral, DAILY, First dose on Sun07/30/22 at 1000, Until Discontinued, Routine 0813 (Given - Provider: Missy Du) 0841 (Given - Provider: Jim Lamar RN) 0921 (Given - Provider: Jim Lamar RN) ondansetron ODT (Zofran-ODT) disintegrating tablet 4 mg (COMPLETED) 4 mg, Oral, ONCE, 1 dose, On Sun08/01/22 at 0915, Routine 0831 (Given - Provider: Jim Lamar RN) potassium bicarbonate (Effer-K) effervescent tablet 40 mEq (COMPLETED) 40 mEq, Oral, ONCE, On Sun08/01/22 at 0515, 1 dose, DO NOT GIVE UNDILUTED MEDICATION TO PATIENT. Dissolve tablet completely in 3-4 ounces of cold water or juice. May further dilute if adverse GI effects occur. 0503 (Given - Provider: Vincent Parham RN) potassium bicarbonate (Effer-K) effervescent tablet 40 mEq (COMPLETED) 40 mEq, Oral, ONCE, On Sun08/02/22 at 1100, 1 dose, DO NOT GIVE UNDILUTED MEDICATION TO PATIENT. Dissolve tablet completely in 3-4 ounces of cold water or juice. May further dilute if adverse GI effects occur. 1021 (Given - Provider: Jim Lamar RN) potassium chloride 10 mEq in sterile water 100 mL infusion (COMPLETED) 10 mEq, Intravenous, EVERY 2 HOURS, 1 dose, First dose on Sun07/31/22 at 0845, Administer over 60 Minutes, Warning Vesicant/Irritant Medication 0834 (New Bag - Provider: Missy Du)0934 (Stopped - Provider: Brooklynn Adhikari RN) potassium chloride 10 mEq in sterile water 100 mL infusion (COMPLETED) 10 mEq, Intravenous, EVERY HOUR, 4 doses, First dose (after last reorder) on Sun08/01/22 at 0700, Last dose on Sun08/01/22 at 1000, Administer over 60 Minutes, Warning Vesicant/Irritant Medication 0651 (New Bag - Provider: Vincent Parham RN)0751 (Stopped - Provider: Jim Lamar RN)0803 (New Bag - Provider: Jim Lamar RN)0905 (Stopped - Provider: Jim Lamar RN)0907 (New Bag - Provider: Jim Lamar RN)0959 (Stopped - Provider: Jim Lamar RN)1034 (New Bag - Provider: Jim Lamar RN)1134 (Stopped - Provider: Jim Lamar RN) potassium chloride 10 mEq in sterile water 100 mL infusion (COMPLETED) 10 mEq, Intravenous, EVERY HOUR, 2 doses, First dose on Sun08/01/22 at 1715, Last dose on Sun08/01/22 at 1800, Administer over 60 Minutes, Warning Vesicant/Irritant Medication 1634 (New Bag - Provider: Jim Lamar RN)1730 (Stopped - Provider: Jim Lamar RN)1742 (New Bag - Provider: Jim Lamar RN)1842 (Stopped - Provider: Jim Lamar RN) potassium chloride 10 mEq in sterile water 100 mL infusion (CANCELED) 10 mEq, Intravenous, EVERY HOUR, 4 doses, First dose (after last reorder) on Sun08/02/22 at 0815, Last dose on Sun08/02/22 at 1100, Administer over 60 Minutes, Warning Vesicant/Irritant Medication 0806 (New Bag - Provider: Jim Lamar RN)0859 (Stopped - Provider: Jim Lamar RN)0900 (Not Given - Provider: Jim Lamar RN - Reason: Medication Discontinued)1000 (Not Given - Provider: Jim Lamar RN - Reason: Medication Discontinued) potassium chloride 20 mEq in sterile water 100 mL infusion (CANCELED) 20 mEq, Intravenous, EVERY 2 HOURS, 2 doses, First dose on Sun08/02/22 at 0915, Last dose on Sun08/02/22 at 1115, Administer over 60 Minutes, Warning Vesicant/Irritant Medication 0918 (New Bag - Provider: Jim Lamar RN)1000 (Stopped - Provider: Jim Lamar RN - Comment: Time automatically adjusted from order being discontinued) pregabalin (Lyrica) capsule 100 mg 100 mg, Oral, 3 TIMES DAILY, First dose on Sun07/30/22 at 1000, Until Discontinued, Routine 0813 (Given - Provider: Missy uD)1550 (Given - Provider: Missy Du)2047 (Given - Provider: Vincent Parham RN) 0840 (Given - Provider: Jim Lamar RN)1533 (Given - Provider: Jim Lamar RN)2010 (Given - Provider: Dawn Barnett RN) 0920 (Given - Provider: Jim Lamar RN) senna-docusate (Pericolace) 8.6-50 mg per tablet 2 tablet 2 tablet, Oral, 2 TIMES DAILY, First dose on Sun07/24/22 at 2315, Until Discontinued, Routine 0900 (Not Given - Provider: Missy Du - Reason: Order parameters not met - Comment: Loose stools)2047 (Not Given - Provider: Vincent Parham RN - Reason: Patient/family refused) 09 (Not Given - Provider: Jim Lamar RN - Reason: Patient/family refused)2099 (Not Given - Provider: Dawn Barnett RN - Reason: Patient/family refused) 919 (Given - Provider: Jim Lamar RN) sertraline (Zoloft) tablet 200 mg 200 mg, Oral, DAILY, First dose (after last modification) on Sun07/31/22 at 0900, Until Discontinued, Routine 0813 (Given - Provider: Missy Du) 08 (Given - Provider: Jim Lamar, SEAN) 09 (Given - Provider: Jim Lamar RN) sodium chloride 0.9 % (flush) (BD PosiFlush Normal Saline 0.9) flush 5 mL 5 mL, Intravenous, 2 TIMES DAILY, First dose on Sun07/24/22 at 2106, Until Discontinued, Routine 08 (Given - Provider: Missy Du)2055 (Given - Provider: Vincent Parham RN) 838 (Given - Provider: Jim Lamar RN)2009 (Given - Provider: Dawn Barnett RN) 921 (Given - Provider: Jim Lamar RN) Continuous Medication Order 07/31/2022 08/01/2022 08/02/2022 heparin (porcine) 50 units/mL in dextrose 5% 500 mL infusion(Linked Group 1) 0-5,000 Units/hr (0-100 mL/hr), Intravenous, CONTINUOUS, Starting on Sun07/31/22 at 1215, Until Sun08/02/22 at 1300, Begin infusion at 500 units per hr (18 units/kg/hr). Maximum initial infusion rate is 2,000 units/hr. Infusion doses are rounded to the nearest 50 units. Target Heparin UFH Level (anti-Xa activity) = 0.3 - 0.7 international unit/mL Start adjustment schedule 6 hours after starting infusion. If Heparin UFH Level is: - Less than 0.1 international unit/mL: Administer PRN bolus and increase rate by 350 units per hr (4 units/kg/hr) - 0.1 - 0.19 international unit/mL: Administer PRN bolus and increase rate by 200 units per hr (2 units/kg/hr) - 0.2 - 0.29 international unit/mL: NO BOLUS and increase rate by 200 units per hr (2 units/kg/hr) - 0.3 - 0.7 international unit/mL: No change - 0.71 - 0.79 international unit/mL: NO BOLUS and decrease rate by 100 units per hr (1 units/kg/hr) - 0.8 - 0.99 international unit/mL: NO BOLUS and decrease rate by 200 units per hr (2 units/kg/hr) - Greater than or equal to 1.00 international unit/mL: Hold infusion for 60 minutes then decrease rate by 250 units per hour (3 units/kg/hr) Repeat Heparin UFH Level 6 hours after initiating heparin. Then 6 hours after each dose adjustment. When 2 consecutive Heparin UFH Level within target range of 0.3 - 0.7 international unit/mL, change Heparin UFH Level to once every 24 hours with A.M. labs while on heparin. RN to order required Heparin UFH Level - Per Protocol, Routine 1215 (Rate/Dose Change - Provider: Brooklynn Adhikari RN)205 (Rate/Dose Change - Provider: Vincent Parham RN) 0334 (Rate/Dose Change - Provider: Vincent Parham RN)0833 (New Bag - Provider: Jim Lamar RN)1102 (New Bag - Provider: Jim Lamar RN)1822 (Rate/Dose Verify - Provider: Jim Lamar RN) 0341 (New Bag - Provider: Dawn Barnett RN)1136 (Stopped - Provider: Jim Lamar RN) PRN Medication Order 07/31/2022 08/01/2022 08/02/2022 clonazePAM (KlonoPIN) tablet 0.5 mg 0.5 mg, Oral, 3 TIMES DAILY PRN, Starting on Sun07/24/22 at 2228, Until Sun08/02/22 at 1509, Anxiety, DO NOT SPLIT, CRUSH OR OPEN Regular tablets should be swallowed whole with water. Disintegrating tablets (ODTs) should be placed in mouth; may be swallowed with or without water. May also be dissolved in small volume (~30 mL) of water if going to be administered via feeding tube., Routine heparin (porcine) (1,000 units/mL) injection 0-8,000 Units(Linked Group 1) 0-8,000 Units, Intravenous, BOLUS PER HEPARIN PROTOCOL, Starting on 07/31/22 at 1117, Until Sun08/02/22 at 1300, Per Protocol, START ADJUSTMENT SCHEDULE 6 HOURS AFTER STARTING INFUSION Bolus doses are rounded to the nearest 100 units. If Heparin UFH Level is: - Less than 0.1 international unit/mL: Bolus 80 units/kg (Maximum of 8,000 units) = Bolus 7,200 units - 0.1 - 0.19 International unit/mL: Bolus 40 units/kg (Maximum of 4,000 units) = Bolus 3,600 units - Equal to or greater than 0.2 international unit/mL: No Bolus, Routine 2052 (Given - Provider: Vincent Parham RN) 1056 (Given - Provider: Jim Lamar RN) hydrALAZINE (Apresoline) (20 mg/mL) injection 10 mg 10 mg, Intravenous, EVERY 4 HOURS PRN, Starting on Ivis 07/27/22 at 0836, Until Sun08/02/22 at 1509, High Blood Pressure, for SBP > 160, hold for HR > 90, Routine 1042 (Given - Provider: Jim Lamar RN) HYDROmorphone (Dilaudid) (0.2 mg/1 mL) injection syringe 0.2 mg 0.2 mg, Intravenous, EVERY 4 HOURS PRN, Starting on 07/30/22 at 0909, Until Sun08/02/22 at 1509, Pain, For break through pain not relieved with Oxycodone, Routine 1147 (Given - Provider: Jim Lamar RN) ipratropium-albuteroL (Duoneb) 0.5 mg-3 mg(2.5 mg base)/3 mL nebulizer solution 3 mL 3 mL, Nebulization, 4 TIMES DAILY PRN, Starting on 07/25/22 at 1647, Until Sun08/02/22 at 1509, Wheezing, Routine labetaloL (Normodyne) (5 mg/mL) injection solution 10 mg 10 mg, Intravenous, EVERY 4 HOURS PRN, Starting on Ivis 07/27/22 at 0837, Until Sun08/02/22 at 1509, High Blood Pressure, for SBP > 160, hold for HR < 60. Give as second line to hydralazine or when HR paramter not met for hydral, Routine 1126 (Given - Provider: Jim Lamar RN) lidocaine (Xylocaine) 1% (10 mg/mL) injection 3 mg 3 mg (0.3 mL), Subcutaneous, ONCE PRN, 1 dose, Starting on 07/24/22 at 2057, Until Sun08/02/22 at 1509, for discomfort with PIV insertion, Routine oxyCODONE (Roxicodone) tablet 10-15 mg(Linked Group 2) 10-15 mg, Oral, EVERY 4 HOURS PRN, Starting on 07/30/22 at 0909, Until Sun08/02/22 at 1509, Pain, severe pain (7-10), Initial dose 10mg. If pain control not adequate in 60 minutes, give additional 5mg., Routine 1040 (Given - Provider: Jim Lamar RN)1622 (Given - Provider: Jim Lamar RN)2238 (Given - Provider: Dawn Barnett RN) 0744 (See Alternative - Provider: Jim Lamar RN)1251 (See Alternative - Provider: Jim Lamar RN) oxyCODONE (Roxicodone) tablet 5-10 mg(Linked Group 2) 5-10 mg, Oral, EVERY 4 HOURS PRN, Starting on 07/30/22 at 0909, Until Sun08/02/22 at 1509, Pain, moderate pain (4-6), Initial dose 5mg. If pain control not adequate in 60 minutes, give additional 5mg., Routine 1040 (See Alternative - Provider: Jim Lamar RN)1622 (See Alternative - Provider: Jim Lamar RN)2238 (See Alternative - Provider: Dawn Barnett RN) 0744 (Given - Provider: Jim Lamar RN)1251 (Given - Provider: Jim Lamar RN) sodium chloride 0.9 % (flush) (BD PosiFlush Normal Saline 0.9) flush 5-20 mL 5-20 mL, Intravenous, EVERY 1 MIN PRN, Starting on Sun07/24/22 at 2057, Until Sun08/02/22 at 1509, flush, Flush pertains to all indwelling lines. Flush per protocol found in the job aid using the link provided on this medication record., Routine Linked Groups Order Group 1: heparin (porcine) 50 units/mL in dextrose 5% 500 mL infusionJump to med 0-5,000 Units/hr (0-100 mL/hr), Intravenous, CONTINUOUS, Starting on Sun07/31/22 at 1215, Until Sun08/02/22 at 1300, Begin infusion at 500 units per hr (18 units/kg/hr). Maximum initial infusion rate is 2,000 units/hr. Infusion doses are rounded to the nearest 50 units. Target Heparin UFH Level (anti-Xa activity) = 0.3 - 0.7 international unit/mL Start adjustment schedule 6 hours after starting infusion. If Heparin UFH Level is: - Less than 0.1 international unit/mL: Administer PRN bolus and increase rate by 350 units per hr (4 units/kg/hr) - 0.1 - 0.19 international unit/mL: Administer PRN bolus and increase rate by 200 units per hr (2 units/kg/hr) - 0.2 - 0.29 international unit/mL: NO BOLUS and increase rate by 200 units per hr (2 units/kg/hr) - 0.3 - 0.7 international unit/mL: No change - 0.71 - 0.79 international unit/mL: NO BOLUS and decrease rate by 100 units per hr (1 units/kg/hr) - 0.8 - 0.99 international unit/mL: NO BOLUS and decrease rate by 200 units per hr (2 units/kg/hr) - Greater than or equal to 1.00 international unit/mL: Hold infusion for 60 minutes then decrease rate by 250 units per hour (3 units/kg/hr) Repeat Heparin UFH Level 6 hours after initiating heparin. Then 6 hours after each dose adjustment. When 2 consecutive Heparin UFH Level within target range of 0.3 - 0.7 international unit/mL, change Heparin UFH Level to once every 24 hours with A.M. labs while on heparin. RN to order required Heparin UFH Level - Per Protocol, Routine And heparin (porcine) (1,000 units/mL) injection 0-8,000 UnitsJump to med 0-8,000 Units, Intravenous, BOLUS PER HEPARIN PROTOCOL, Starting on 07/31/22 at 1117, Until Sun08/02/22 at 1300, Per Protocol, START ADJUSTMENT SCHEDULE 6 HOURS AFTER STARTING INFUSION Bolus doses are rounded to the nearest 100 units. If Heparin UFH Level is: - Less than 0.1 international unit/mL: Bolus 80 units/kg (Maximum of 8,000 units) = Bolus 7,200 units - 0.1 - 0.19 International unit/mL: Bolus 40 units/kg (Maximum of 4,000 units) = Bolus 3,600 units - Equal to or greater than 0.2 international unit/mL: No Bolus, Routine Group 2: oxyCODONE (Roxicodone) tablet 5-10 mgJump to med 5-10 mg, Oral, EVERY 4 HOURS PRN, Starting on 07/30/22 at 0909, Until Sun08/02/22 at 1509, Pain, moderate pain (4-6), Initial dose 5mg. If pain control not adequate in 60 minutes, give additional 5mg., Routine Or oxyCODONE (Roxicodone) tablet 10-15 mgJump to med 10-15 mg, Oral, EVERY 4 HOURS PRN, Starting on 07/30/22 at 0909, Until Sun08/02/22 at 1509, Pain, severe pain (7-10), Initial dose 10mg. If pain control not adequate in 60 minutes, give additional 5mg., Routine documented in this encounter Care Teams [employer] Relationship Specialty Start Date End Date April Ramirez MD [address] [place] [address] PCP - General Family Medicine 07/24/22 documented as of this encounter
--- OUTSIDE RECORDS SUMMARY | 2024-04-04 20:21 | XMS_ITS | Encounter Summary ---
Author Organization [facility], [facility] [place] [address] Care Team Providers Care Bottom Stop Attacher Name Role Phone April Ramirez MD Primary Care Provider [phone] Reason for Visit * Auth/Cert (Routine) Specialty Diagnoses / Procedures Referred By Contac t Referred To Contact Diagnoses Aortic disorder Procedures EMERGENCY IPI Marco Dior MD [facility] [place] [address] [facility] Referral ID Status Reason Start Date Expiration Date Visits Re quested Visits Authorized [id number] 1 1 Encounter Details Date Type Department Care Team (Late st Contact Info) Description 07/26/2022 7:24 AM EDT Anesthesia Event [place] [address] Abiel Brooks MD [facility] [place] [address] Horace Mena MD Anesthesia Record Procedure Summary Procedure Name Responsible Anesthesiologist Anesthesia Start Time Anesthesia Stop Time THROMBECTOMY ARTERIAL,VENOUS GRAFT (NOT FOR HEMODIALYSIS GRAFT) WITH REVISION, LOWER EXTREMITY (WRVU 17.82) (Left: Leg Upper) Abiel Brooks MD 07/26/22 0724 07/26/22 0947 Events Date Time Event Comment 07/26/2022 0724 AN Verify 0724 Start 0724 An Start Data 0734 An Induction 0737 An Intubation 0740 Anesthesia Ready 0939 Extubation/LMA Out 0943 an stop data 0946 0947 Recovery or ICU Handoff [place] ent care was transferred to the destination unit staff after review of the patient's medical history, current anesthetic/surgical status and plan, according to the Provider Handoff Checklist. 0947 Stop Meds Name Total fentaNYL 150 mcg IV Lidocaine 100 mg Propofol 200 mg Rocuronium 70 mg Heparin 8,000 Units Protamine 40 mg Dexamethasone 8 mg Ondansetron 8 mg Neostigmine 3 mg Glycopyrrolate 0.4 mg Dexmedetomidine 16 mcg Lactated Ringers 1,200 mL * Agents Name O2 Air N2O Sevoflurane (et) * Blood No blood administrations on file. Lines, Drains, and Airways Type Details Placement Removal Incision 07/25/22; 1013; medi al; lower quadrant 07/25/22 1013 by Evan Del Rio RN Incision 07/25/22; 1013; Righ t, anterior; hip 07/25/22 1013 by Evan Del Rio RN Incision 07/25/22; 1014; Left , anterior; hip 07/25/22 1014 by Evan Del Rio, SEAN (RETIRED) Percutaneous Central Line - Triple Lumen internal jugular vein, right; introducer; Ultrasound Guidance; (7 Fr); MD Radha; Tubing Manometry; 07/28/22; 1753 07/25/22 1030 by 07/28/22 1753 by Mariya Bay RN (RETIRED) Peripheral IV Line - Single Lumen 07/24/22; 1500; median cubital vein (antecubital fossa), right; aprb-iab-dueycd catheter system; 20 gauge; OSH; no longer indicated, catheter/device intact; 08/02/22; 1230 07/24/22 1500 by Cindy Gomez RN 08/02/22 1230 by Jim Lamar RN (RETIRED) Peripheral IV Line - Single Lumen 07/24/22; 1700; metacarpal vein (top of hand), left; zmht-jns-izhsad catheter system; 20 gauge; OSH; INT d/c'd w/ cath intact; no redness, bruising or swelling. Bandage applied; 07/28/22; 200907/24/22 1700 by Cindy Gomez RN 07/28/222009 by Pinky Israel RN NG/OG Tube 07/25/22; 0730 (plac ed in OR); Lyon sump; right nostril; stomach; gastric decompression; Taped; 07/30/22; 1030 07/25/22 0730 by Kell Anderson RN 07/30/22 1030 by Brooklynn Adhikari RN (RETIRED) Peripheral IV Line - Single Lumen 07/25/22; 0833; metacarpal vein (top of hand), left; iuey-bvr-xkswdy catheter system; Anatomical Landmarks; 16 gauge; MD Radha; 07/29/22; 0831 (not present on assessment) 07/25/22 0833 by Farhan Garcia MD 07/29/22 0831 by Peggy Gu RN Urethral Catheter 07/25/22; 1014; 14; 07/29/22; 1400 07/25/22 1014 by Evan Del Rio RN 07/29/22 1400 by Brooklynn Adhikari RN Arterial Line 07/26/22; 0410; radi al artery, left; 20 gauge; Ultrasound Guidance; Yes - US guidance used for evaluation of potential access sites, vessel patency and realtime visualization of needle entry with permanent recording.; frequent blood gas measurement, continuous blood pressure monitoring; cc team, red; 07/28/22 07/26/22 0410 by Ericka Green RN 07/28/22 0000 by Mariya Bay RN ETT Mask Ventilation: Ea sy (1); ETT Type: Cuffed, Oral; ETT Size: 8 mm; Mac Blade: 4; Notes: Asleep, Pre-O2, Stylette; Attempts: 1; Laryngoscopy Grade: 1; ETT Placement Verified By: Capnometry, Visual; Secured at Teeth: 23 cm; Inserted by: pili; Removal Date: 07/26/22; Removal Time: 93807/26/22 07 by Horace Mena MD 07/26/22 0939 by Abiel Brooks MD documented in this encounter Social History Tobacco Use Types Packs/Day Years [...] on file documented as of this encounter OR Notes * Anesthesia Postprocedure Evaluation - Horace Mena MD - 07/26/2022 10:48 AM EDT Department of Anesthesiology Post-procedure Note Patient: Antelmo Marquez Procedure Summary Date: 07/26/22 Room / Location: [facility] OR [address] [place] [address] MAIN OR Anesthesia Start: 723 Anesthesia Stop: 946 Procedures: THROMBECTOMY ARTERIAL,VENOUS GRAFT (NOT FOR HEMODIALYSIS GRAFT) WITH REVISION, LOWER EXTREMITY (WRVU 17.82) (Left: Leg Upper) EMBOLECTOMY OR THROMBECTOMY, FEMOROPOPLITEAL, AORTOILIAC ARTERY BY LEG INCISION- BRISSA (WRVU 19.48) (Left: Leg Upper) Diagnosis: (concern for occluded L ABF limb) Surgeons: Marco Dior MD Responsible Provider: Abiel Brooks MD Anesthesia Type: general ASA Status: 3 - Emergent All Anesthesia Providers: Anesthesiologist: Abiel Brooks MD Repair Specialist: Horace Mena MD Vitals Value Taken Time BP Temp 36.1 ??C (96.98 ??F) 07/26/22 1048 Pulse 67 07/26/22 1048 Resp 14 07/26/22 1048 SpO2 97 % 07/26/22 1048 Pain Level Vitals shown include unvalidated device data. Patient Location: ICU Level of Consciousness: Awake and Alert Pain Management: Satisfactory Analgesia PONV: None Cardiovascular Status: At Baseline and Hemodynamically Stable Respiratory Status: At Baseline and Room Air Postoperative Fluid Status: Possible Anesthetic Complications: NONE apparent at time of evaluation Final Primary Anesthesia Type: General (The anesthetic type performed was the same as planned.) Comments: Horace Mena MD * Anesthesia Preprocedure Evaluation - Abiel Brooks MD - 07/26/2022 9:42 AM EDT Pre-Anesthesia Evaluation for: Antelmo Marquez a 56 y.o. male. Procedure(s): THROMBECTOMY ARTERIAL,VENOUS GRAFT (NOT FOR HEMODIALYSIS GRAFT) WITH REVISION, LOWER EXTREMITY (WRVU 17.82) EMBOLECTOMY OR THROMBECTOMY, FEMOROPOPLITEAL, AORTOILIAC ARTERY BY LEG INCISION- BRISSA (WRVU 19.48) Patient Active Problem List Diagnosis Date Noted ??? *Aortic disorder 07/24/2022 No past medical history on file. No past surgical history on file. Social History Tobacco Use ??? Smoking status: Never Passive exposure: Never ??? Smokeless tobacco: Never Substance Use Topics ??? Alcohol use: Not Currently Social History Substance and Sexual Activity Drug Use Not Currently Comment: 'in the 80's' No Known Allergies Medications: MAR and/or home medications have been reviewed. Physical Exam: Preprocedure Vitals Current as of 07/26/22 0724 BP: Pulse: 91 Resp: 14 SpO2: 92 Temp: 37.6 ??C (99.7 ??F) Height: 182.9 cm (6') (07/24/22) Weight: 89.7 kg (197 lb 12 oz) (07/25/22) BMI: 26.82 IBW: 77.6 kg (171 lb 1.9 oz) Last edited 07/26/22 0652 by IRASEMA Airway Assessment: Mallampati: (Unable to Assess) Easy intubation yesterday Cardiovascular Assessment: Rhythm: regular Pulmonary Assessment: unlabored breathing Dental Assessment: Misc Assessment: IV access: Peripheral line, Central line and A-line Last Filed Perioperative Cognitive Screening None Anesthesia Plan: ASA 3 emergent general, with a(n) intravenous induction 56 yo male with history of aortic occlusion with aortobifem yesterday now with acute left leg ischemia and graft thrombosis for urgent thrombectomy. Patient straight to OR after CTA. Consent presumed. GETA, std monitors, a-line (existing). Region - [facility] Informed Consent: Plan discussed with resident. Anesthesia Screening documented in this encounter Plan of Treatment Not on file documented as of this encounter Visit Diagnoses Not on filedocumented in this encounter Administered Medications Inactive Administered Medications - up to 3 most recent administrations Medication Order MAR Action Action Date Dose Rate Site dexAMETHasone (Decadron) injection Intravenous, PRN, Starting on Sun07/26/22 at 0917, Until Sun07/26/22 at 1048, Anesthesia Intra-op, Routine Given 07/26/2022 9:17 AM EDT 8 mg dexmedeTOMIDine (Precedex) (4 mcg/mL) bolus injection (Anesthsia) Intravenous, PRN, Starting on Sun07/26/22 at 0922, Until Sun07/26/22 at 1048, Anesthesia Intra-op, Routine Given 07/26/2022 9:22 AM EDT 16 mcg fentaNYL (pf) (50 mcg/mL) multi-dose injection Intravenous, PRN, Starting on Sun07/26/22 at 0749, Until Sun07/26/22 at 1048, Anesthesia Intra-op, Routine Given 07/26/2022 9:22 AM EDT 100 mcg Given 07/26/2022 7:49 AM EDT 50 mcg glycopyrrolate (Robinul) (0.2 mg/mL) multi-dose injection Intravenous, PRN, Starting on Sun07/26/22 at 0914, Until Sun07/26/22 at 1048, Anesthesia Intra-op, Routine Given 07/26/2022 9:14 AM EDT 0.4 mg heparin (porcine) (1,000 units/mL) injection Intravenous, PRN, Starting on Sun07/26/22 at 0813, Until Sun07/26/22 at 1048, Anesthesia Intra-op, Routine Given 07/26/2022 8:13 AM EDT 8,000 Uni ts lactated ringers infusion Intravenous, CONTINUOUS PRN, Starting on Sun07/26/22 at 0741, Until Sun07/26/22 at 1048, Anesthesia Intra-op New Bag 07/26/2022 7:41 AM EDT lidocaine (pf) (Xylocaine) (20 mg/mL) 2% injection syringe Intravenous, PRN, Starting on Sun07/26/22 at 0733, Until Sun07/26/22 at 1048, Anesthesia Intra-op, Routine Given 07/26/2022 7:33 AM EDT 100 mg neostigmine (Bloxiver) (1 mg/mL) injection Intravenous, PRN, Starting on Sun07/26/22 at 0914, Until Sun07/26/22 at 1048, Anesthesia Intra-op, Routine Given 07/26/2022 9:14 AM EDT 3 mg ondansetron (pf) (Zofran) (2 mg/mL) injection Intravenous, PRN, Starting on Sun07/26/22 at 0917, Until Sun07/26/22 at 1048, Anesthesia Intra-op, Routine Given 07/26/2022 9:17 AM EDT 8 mg propofoL (Diprivan) 10 mg/mL bolus injection (Anesthesia) Intravenous, PRN, Starting on Sun07/26/22 at 0734, Until Sun07/26/22 at 1048, Anesthesia Intra-op Given 07/26/2022 7:34 AM EDT 200 mg protamine (10 mg/mL) injection Intravenous, PRN, Starting on Sun07/26/22 at 0900, Until Sun07/26/22 at 1048, Anesthesia Intra-op, Routine Given 07/26/2022 9:00 AM EDT 40 mg rocuronium (Zemuron) (10 mg/mL) multi-dose injection Intravenous, PRN, Starting on Sun07/26/22 at 0734, Until Sun07/26/22 at 1048, Anesthesia Intra-op, Routine Given 07/26/2022 8:18 AM EDT 20 mg Given 07/26/2022 7:34 AM EDT 50 mg documented in this encounter Care Teams Bottom Stop Attacher Relationship Specialty Start Date End Date April Ramirez MD [address] [place] [address] PCP - General Family Medicine 07/24/22 documented as of this encounter
[2024-04-04] MEDS: Norepinephrine in D5W 8 MG/250 ML BAG 18.8 MG IV (20:22)
--- OUTSIDE RECORDS SUMMARY | 2024-04-04 20:22 | XMS_ITS | Encounter Summary ---
Author Organization [facility] Address [facility] [place] [address] Care Team Providers Care Roller Stainer Name Role Phone April Ramirez MD Primary Care Provider [phone] Reason for Visit * Auth/Cert (Routine) Specialty Diagnoses / Procedures Referred By Contac t Referred To Contact Diagnoses Aortic disorder Procedures EMERGENCY IPI Marco Dior MD [facility] [place] [address] [facility] Referral ID Status Reason Start Date Expiration Date Visits Re quested Visits Authorized [id number] 1 1 Encounter Details Date Type Department Care Team (Late st Contact Info) Description 07/25/2022 7:51 AM EDT Anesthesia [place] [address] Connie Araujo MD [facility] DR [place] [address] Farhan Garcia MD [facility] [place] [address] Anesthesia Record Procedure Summary Procedure Name Responsible Anesthesiologist Anesthesia Start Time Anesthesia Stop Time @BYPASS GRAFT, AORTOBIFEMORAL W\ SYNTHETIC CONDUIT (WRVU 32.98) (Abdomen) Connie Araujo MD 07/25/22 0751 07/25/22 1449 Events Date Time Event Comment 07/25/2022 0730 0751 AN Verify 0751 Start 0751 An Start Data 0804 An Induction 0811 An Intubation 0825 Anesthesia Ready 0922 Procedure Start 1111 Heparin 1122 Vascular Clamp ON 1122 Quick Note Supraceliac 1129 Vascular Clamp OFF 1129 Quick Note Infrarenal 1129 Vascular Clamp ON 1147 ABG Data Arterial Blood Gas result: pH 7.340 pCO2 38.5 pO2 183.2 %O2 Sat FiO2 HCO3 20.3 BE -5.5 Hb 13.1 K 3.61 Glucose 113 Lactate 1.13 1151 Vascular Clamp OFF 1233 ABG Data Arterial Blood Gas result: pH 7.363 pCO2 36.1 pO2 155.4 %O2 Sat 97.3 FiO2 80% HCO3 20.1 BE -5.3 Hb 14.0 K 4.03 Glucose 105 Lactate 0.91 1252 Protamine 1336 ABG Data Arterial Blood Gas result: pH 7.335 pCO2 40.2 pO2 170.1 %O2 Sat FiO2 74 HCO3 21 BE -4.9 Hb 14.3 K 3.98 Glucose 119 Lactate 1.73 1421 Extubation/LMA Out 1426 an stop data 1449 Stop 1449 Recovery or ICU Handoff [place] ent care was transferred to the destination unit staff after review of the patient's medical history, current anesthetic/surgical status and plan, according to the Provider Handoff Checklist. Meds Name Total Midazolam 2 mg fentaNYL 850 mcg IV Lidocaine 100 mg Propofol 280 mg Rocuronium 210 mg PHENYLephrine 320 mcg Heparin 9,000 Units Protamine 50 mg Dexamethasone 8 mg Ondansetron 4 mg PHENYLephrine INF 7,165 mcg cefTRIAXone 2 g Sodium Bicarbonate 8.4% 100 mEq Calcium Chloride 1,400 mg Mannitol 25% 25 g niCARdipine INF 6.42 mg niCARdipine 1.2 mg NORepinephrine 24 mcg Sugammadex 200 mg Sodium Chloride 0.9% 1,000 mL Sodium Chloride 0.9% 200 mL Lactated Ringers 1,000 mL electrolyte replacement solu tion (pH 7.4) (Normosol-R, Plasmalyte-A) infusion 3,000 mL * Agents Name O2 * Blood No blood administrations on file. Lines, Drains, and Airways Type Details Placement Removal Incision 07/25/22; 1013; medi al; lower quadrant 07/25/22 1013 by Evan Del Rio RN Incision 07/25/22; 1013; Righ t, anterior; hip 07/25/22 1013 by Evan Del Rio, RN Incision 07/25/22; 1014; Left , anterior; hip 07/25/22 1014 by Evan Del Rio, RN (RETIRED) Percutaneous Central Line - Triple Lumen internal jugular vein, right; introducer; Ultrasound Guidance; (7 Fr); MD Radha; Tubing Manometry; 07/28/22; 1753 07/25/22 1030 by 07/28/22 1753 by Mariya Bay RN (RETIRED) Peripheral IV Line - Single Lumen 07/24/22; 1500; median cubital vein (antecubital fossa), right; [id number]-bjrgzx catheter system; 20 gauge; OSH; no longer indicated, catheter/device intact; 08/02/22; 1230 07/24/22 1500 by Cindy Gomez RN 08/02/22 1230 by Jim Lamar RN (RETIRED) Peripheral IV Line - Single Lumen 07/24/22; 1700; metacarpal vein (top of hand), left; [id number] catheter system; 20 gauge; OSH; INT d/c'd w/ cath intact; no redness, bruising or swelling. Bandage applied; 07/28/22; 200907/24/22 1700 by Cindy Gomez RN 07/28/222009 by Pinky Israel RN Arterial Line 07/25/22; 0730 (located within [facility] [place]); radial artery, right; continuous blood pressure monitoring, frequent blood gas measurement; 07/26/22; 0215 07/25/22 0730 by Kell Anderson RN 07/26/22 0215 by Ericka Green RN NG/OG Tube 07/25/22; 0730 (located within [facility] [place]); [place] sump; right nostril; stomach; gastric decompression; Taped; 07/30/22; 1030 07/25/22 0730 by Kell Anderson RN 07/30/22 1030 by Brooklynn Adhikari RN ETT Mask Ventilation: Adjunct (2); ETT Type: Cuffed; ETT Size: 8 mm; Mac Blade: 4; Attempts: 1; Laryngoscopy Grade: 1; ETT Placement Verified By: Capnometry, Auscultation, Visual; Secured at Teeth: 23 cm; Inserted by: MD Radha; Removal Date: 07/25/22; Removal Time: 14207/25/22 0816 by Connie Araujo MD 07/25/22 1426 by Farhan Garcia MD (RETIRED) Peripheral IV Line - Single Lumen 07/25/22; 0833; metacarpal vein (top of hand), left; [id number]-[id number] catheter system; Anatomical Landmarks; 16 gauge; MD Radha; 07/29/22; 0831 (not present on assessment) 07/25/22 0833 by Farhan Garcia MD 07/29/22 0831 by Peggy Gu RN Urethral Catheter 07/25/22; 1014; 14; 07/29/22; 1400 07/25/22 1014 by Evan Del Rio RN 07/29/22 1400 by Brooklynn Adhikari RN documented in this encounter Social History Tobacco [...] OR Notes * Anesthesia Postprocedure Evaluation - Connie Araujo MD - 07/25/2022 3:34 PM EDT Department of Anesthesiology Post-procedure Note Patient: Antelmo Marquez Procedure Summary Date: 07/25/22 Room / Location: [facility] [address] [place] [address] MAIN OR Anesthesia Start: 750 Anesthesia Stop: 1448 Procedure: @BYPASS GRAFT, AORTOBIFEMORAL W\ SYNTHETIC CONDUIT (WRVU 32.98) (Abdomen) Diagnosis: (Aortic occlusion) Surgeons: Rut Aguilera MD Responsible Provider: Connie Araujo MD Anesthesia Type: general ASA Status: 4 All Anesthesia Providers: Anesthesiologist: Connie Araujo MD License Inspector: Farhan Garcia MD Vitals Value Taken Time BP Temp 35.3 ??C (95.54 ??F) 07/25/22 1534 Pulse 91 07/25/22 1534 Resp 19 07/25/22 1534 SpO2 95 % 07/25/22 1534 Pain Level 0 07/25/22 1459 Vitals shown include unvalidated device data. Patient Location: ICU Level of Consciousness: Awake and Alert Pain Management: Satisfactory Analgesia PONV: None Cardiovascular Status: Hemodynamically Stable and Hypertension (received treatment) Respiratory Status: Supplemental O2 (NC or FM) and Stable Respiratory Status Postoperative Fluid Status: Intravascular EUvolemia Possible Anesthetic Complications: NONE apparent at time of evaluation Final Primary Anesthesia Type: General (The anesthetic type performed was the same as planned.) Comments: Patient awake, alert, comfortable. Nicardipine infusion to meed BP goals. Patient tolerated procedure well. No apparent complications. * Anesthesia Preprocedure Evaluation - Connie Araujo MD - 07/25/2022 6:18 AM EDT Pre-Anesthesia Evaluation for: Antelmo Marquez a 56 y.o. male. Procedure(s): @BYPASS GRAFT, AORTOBIFEMORAL W\ SYNTHETIC CONDUIT (WRVU 32.98) Patient Active Problem List Diagnosis Date Noted [...] Physical Exam: Preprocedure Vitals Current as of 07/25/22 0618 BP: 128/89 Pulse: 54 Resp: 13 SpO2: 92 Temp: 36.4 ??C (97.5 ??F) Height: 182.9 cm (6') (07/24/22) Weight: 93 kg (205 lb) (07/24/22) BMI: 27.8 IBW: 77.6 kg (171 lb 1.9 oz) Last edited 07/25/22 0400 by BC Airway Assessment: Mallampati: II TM distance: >3 FB Neck ROM: full Cardiovascular Assessment: system normal Pulmonary Assessment: pulmonary exam normal Dental Assessment: - normal exam Misc Assessment: IV access: Peripheral line Last Filed Perioperative Cognitive Screening None Anesthesia Plan: ASA 4 general, with a(n) intravenous induction ID:Antelmo Marquez 56 y.o. male presenting for PMH significant for HTN, anxiety, 1PPD smoker Presented from an OSH with several days of lower extremity paresthesias, pain, worsening motor function and CT showing aortic occlusion. Stable inpatient on heparin, oxycodone, clonazepam, tylenol, and magnesium. Currently on RA with SBP < 150. ADR: No Known Allergies Cardiac Hx: None per chart review Anesthesia Hx: None per chart review Plan: GAETT, arterial line, standard ASA monitors, +/- CVC Region - Other Informed Consent: Anesthetic plan and risks discussed with patient. Use of blood products discussed with patient who. Plan discussed with resident and attending. Anesthesia Screening documented in this encounter Plan of Treatment Not on file documented as of this encounter Visit Diagnoses Not on filedocumented in this encounter Administered Medications Inactive Administered Medications - up to 3 most recent administrations Medication Order MAR Action Action Date Dose Rate Site calcium chloride 10% (100 mg/mL) injection Intravenous, PRN, Starting on Sun07/25/22 at 1114, Until Sun07/25/22 at 1449, Anesthesia Intra-op, Routine Given 07/25/2022 12:42 PM EDT 250 mg Given 07/25/2022 12:41 PM EDT 250 mg Given 07/25/2022 11:49 AM EDT 300 mg cefTRIAXone (Rocephin) injection Intravenous, PRN, Starting on Sun07/25/22 at 0822, Until Sun07/25/22 at 1449, Anesthesia Intra-op, Routine Given 07/25/2022 9:18 AM EDT 2 g dexAMETHasone (Decadron) injection Intravenous, PRN, Starting on Sun07/25/22 at 0955, Until Sun07/25/22 at 1449, Anesthesia Intra-op, Routine Given 07/25/2022 9:55 AM EDT 8 mg electrolyte replacement solution (pH 7.4) (Normosol-R, Plasmalyte-A) infusion Intravenous, CONTINUOUS PRN, Starting on Sun07/25/22 at 1135, Until Sun07/25/22 at 1449, Anesthesia Intra-op New Bag 07/25/2022 11:54 AM EDT New Bag 07/25/2022 11:00 AM EDT fentaNYL (pf) (50 mcg/mL) multi-dose injection Intravenous, PRN, Starting on Sun07/25/22 at 0909, Until Sun07/25/22 at 1449, Anesthesia Intra-op, Routine Given 07/25/2022 12:10 PM EDT 50 mcg Given 07/25/2022 11:53 AM EDT 100 mcg Given 07/25/2022 11:27 AM EDT 100 mcg heparin (porcine) (1,000 units/mL) injection Intravenous, PRN, Starting on Sun07/25/22 at 1111, Until Sun07/25/22 at 1449, Anesthesia Intra-op, Routine Given 07/25/2022 11:11 AM EDT 9,000 Units lactated ringers infusion Intravenous, CONTINUOUS PRN, Starting on Sun07/25/22 at 0751, Until Sun07/25/22 at 1449, Anesthesia Intra-op New Bag 07/25/2022 7:51 AM EDT lidocaine (pf) (Xylocaine) (20 mg/mL) 2% injection syringe Intravenous, PRN, Starting on Sun07/25/22 at 0806, Until Sun07/25/22 at 1449, Anesthesia Intra-op, Routine Given 07/25/2022 8:06 AM EDT 100 mg mannitoL (less than 50 grams) 25% injection Intravenous, PRN, Starting on Sun07/25/22 at 1116, Until Sun07/25/22 at 1449, Anesthesia Intra-op, Routine Given 07/25/2022 11:16 AM EDT 25 g midazolam (pf) (Versed) (1 mg/mL) multi-dose injection Intravenous, PRN, Starting on Sun07/25/22 at 0804, Until Sun07/25/22 at 1449, Anesthesia Intra-op, Routine Given 07/25/2022 8:04 AM EDT 2 mg niCARdipine (Cardene) (0.5 mg/mL) infusion (Anesthesia) Intravenous, CONTINUOUS PRN, Starting on Sun07/25/22 at 1120, Until Sun07/25/22 at 1449, Anesthesia Intra-op Rate/Dose Change 07/25/2022 2:25 PM EDT 10 mg/hr 20 mL/hr Restarted 07/25/2022 2:13 PM EDT 5 mg/hr 10 mL/hr Restarted 07/25/2022 11:31 AM EDT 2.5 mg/hr 5 mL/hr niCARdipine (Cardene) injection Intravenous, PRN, Starting on Sun07/25/22 at 1120, Until Sun07/25/22 at 1449, Anesthesia Intra-op, Routine Given 07/25/2022 11:25 AM EDT 0.2 mg Given 07/25/2022 11:22 AM EDT 0.6 mg Given 07/25/2022 11:20 AM EDT 0.4 mg NORepinephrine (Levophed) injection Intravenous, PRN, Starting on Sun07/25/22 at 1251, Until Sun07/25/22 at 1449, Anesthesia Intra-op, Routine Given 07/25/2022 1:15 PM EDT 8 mcg Given 07/25/2022 12:55 PM EDT 8 mcg Given 07/25/2022 12:51 PM EDT 8 mcg ondansetron (pf) (Zofran) (2 mg/mL) injection Intravenous, PRN, Starting on Sun07/25/22 at 1356, Until Sun07/25/22 at 1449, Anesthesia Intra-op, Routine Given 07/25/2022 1:56 PM EDT 4 mg PHENYLephrine (Norman-Synephrine) (80 mcg/mL) in sodium chloride 0.9% 250 mL infusion Intravenous, CONTINUOUS PRN, Starting on Sun07/25/22 at 0918, Until Sun07/25/22 at 1449, Anesthesia Intra-op, Routine Rate/Dose Change 07/25/2022 1:59 PM EDT 10 mcg/min 7.5 mL/hr Rate/Dose Change 07/25/2022 1:41 PM EDT 20 mcg/min 15 mL/h r Rate/Dose Change 07/25/2022 1:37 PM EDT 40 mcg/min 30 mL/h r PHENYLephrine in NS (PF) (NORMAN-SYNEPHRINE) 0.8 mg/10 mL (80 mcg/mL) multi-dose injection Syringe Intravenous, PRN, Starting on Sun07/25/22 at 0806, Until Sun07/25/22 at 1449, Anesthesia Intra-op, Routine Given 07/25/2022 1:11 PM EDT 80 mcg Given 07/25/2022 12:47 PM EDT 80 mcg Given 07/25/2022 12:43 PM EDT 80 mcg propofoL (Diprivan) 10 mg/mL bolus injection (Anesthesia) Intravenous, PRN, Starting on Sun07/25/22 at 0805, Until Sun07/25/22 at 1449, Anesthesia Intra-op Given 07/25/2022 2:02 PM EDT 40 mg Given 07/25/2022 11:20 AM EDT 40 mg Given 07/25/2022 8:06 AM EDT 200 mg protamine (10 mg/mL) injection Intravenous, PRN, Starting on Sun07/25/22 at 1252, Until Sun07/25/22 at 1449, Anesthesia Intra-op, Routine Given 07/25/2022 12:57 PM EDT 30 mg Given 07/25/2022 12:54 PM EDT 10 mg Given 07/25/2022 12:52 PM EDT 10 mg rocuronium (Zemuron) (10 mg/mL) multi-dose injection Intravenous, PRN, Starting on Sun07/25/22 at 0807, Until Sun07/25/22 at 1449, Anesthesia Intra-op, Routine Given 07/25/2022 1:27 PM EDT 10 mg Given 07/25/2022 11:43 AM EDT 50 mg Given 07/25/2022 11:05 AM EDT 20 mg sodium bicarbonate 8.4 % (1 meq/ml) IV solution Subcutaneous, PRN, Starting on Sun07/25/22 at 1104, Until Sun07/25/22 at 1449, Anesthesia Intra-op, Routine Given 07/25/2022 12:38 PM EDT 25 mEq Given 07/25/2022 11:49 AM EDT 25 mEq Given 07/25/2022 11:30 AM EDT 25 mEq sodium chloride 0.9% infusion Intravenous, CONTINUOUS PRN, Starting on Sun07/25/22 at 0820, Until Sun07/25/22 at 1449, Anesthesia Intra-op New Bag 07/25/2022 8:20 AM EDT sodium chloride 0.9% infusion Intravenous, CONTINUOUS PRN, Starting on Sun07/25/22 at 0825, Until Sun07/25/22 at 1449, Anesthesia Intra-op New Bag 07/25/2022 8:25 AM EDT sugammadex (Bridion) 100 mg/mL injection Intravenous, PRN, Starting on Sun07/25/22 at 1354, Until Sun07/25/22 at 1449, Anesthesia Intra-op, Routine Given 07/25/2022 1:54 PM EDT 200 mg documented in this encounter Care Teams Roller Stainer Relationship Specialty Start Date End Date April Ramirez MD [address] [place] [address] PCP - General Family Medicine 07/24/22 documented as of this encounter
--- OUTSIDE RECORDS SUMMARY | 2024-04-04 20:22 | XMS_ITS | Encounter Summary ---
[place] [address] Care Team Providers Care Community Living Instructor Name Role Phone April Ramirez MD Primary Care Provider [phone] Reason for Visit * Reason Comments Circulatory Problem * Auth/Cert (Routine) Specialty Diagnoses / Procedures Referred By Contac t Referred To Contact Diagnoses Aortic disorder Procedures EMERGENCY IPI Marco Dior MD [facility] [place] [address] [facility] Referral ID Status Reason Start Date Expiration Date Visits Re quested Visits Authorized [id number] 1 1 Encounter Details Date Type Department Care Team (Late st Contact Info) Description 07/26/2022 7:25 AM EDT - 07/26/2022 10:10 AM EDT Surgery [place] [address] Marco Dior MD [facility] [place] [address] EMBOLECTOMY OR THROMBECTOMY, FEMOROPOPLITEAL, AORTOILIAC ARTERY BY LEG INCISION-LADAN (WRVU 19.48) Social History Tobacco Use Types Packs/Day Years Used Date Smoking Tobacco: Never Passive Smoke Exposure: Never Smokeless Tobacco: Never Tobacco Cessation:Counseling Given: No Alcohol Use Standard Drinks/Week Comments Not Currently 0 (1 standard drink = 0.6 oz pur e alcohol) [facility] Inpatient Questions Answer Date Recorded Does Anyone [...] Sign Reading Time Taken Comments Blood Pressure 139/96 07/26/2022 2:21 AM EDT Pulse 82 07/26/2022 10:00 AM EDT Temperature 35.7 ??C (96.3 ??F) 07/26/2022 10:00 AM E DT Respiratory Rate 17 07/26/2022 10:00 AM EDT Oxygen Saturation 94% 07/26/2022 10:00 AM EDT Inhaled Oxygen Concentration - - [...] on a heparin drip and transferred to [facility] ED for further evaluation by vascular surgery. [...] Mannitol administered. 14x7mm dacron graft to bilateral SALES ACCOUNT EXECUTIVE extending onto profunda arteries. End to end proximal anastomosis, end to side distal anastomoses. No SALES ACCOUNT EXECUTIVE endarterectomies performed. DP PT signals b/l at [...] complain of severe pain, for which a CASH APPLICATIONS MANAGER was added. On 07/29 patient was downgraded to floor status. CASH APPLICATIONS MANAGER was d/c'd, bowel function returned, villegas d/c'd. [...] Discharge to: Home with Home Health Care [facility]. [address] [place] [id number] Future Appointments and Orders Future Orders Complete By Expires EMILIA, legs, multiple levels [VAS8 Custom] 09/01/2022 03/03/2023 Process Instructions: There is no in-house vascular fence laborer available on weeknights (5pm-8am), weekends, or holidays. IF THIS IS A REQUEST FOR AN EMERGENT STUDY DURING THOSE HOURS, please have the senior provider responsible for the patient page the Vascular Surgery Fellow/Senior Resident quality control assistant to discuss options. Scheduling Instructions: Questions: Indication for study/signs & symptoms: s/p aortobifem and left ABF limb thrombectomy Question to be answered: ?perfusion Preferred location?: [facility] CT Angiogram Abdomen & Pelvis w Contrast (Generic) [UII736 Custom] 09/01/2022 03/03/2023 Process Instructions: Scheduling Instructions: Questions: Creatinine to be performed prior to the study?: Hydration prep required?: Contrast allergy prep required?: Where will study be performed?: [facility] Radiology Reason for exam and clinical history: s/p aortobifem and left ABF limb thrombectomy Clinical information / michelle questions for radiologist: Stat read required?: Does patient require sedation?: GA rationale: Date of injury if applicable: Requested Time: [facility] [EQ161 Custom] As directed Process Instructions: Scheduling Instructions: Comments: Antelmo Marquez [address] [place] [id number] Diagnosis: deconditioning with Unsteady gait Significant weakness, [...] evaluate Antelmo Marquez for admission to Home [facility]. [address] [place] [address] (home) Date of : 1965 Inpatient DOCUMENTATION FOR VNA SERVICES (INCLUDING THOSE PATIENTS WITH MEDICARE COVERAGE REQUIRINGHOME VNA SERVICES AND/OR HOSPICE SERVICES) PATIENT'S LOCATION: Antelmo Marquez [address] [place] [address] Cpc's Name: self In discussion with the attending physician, it is certified that this patient is under their care and that they, or a Nurse Practitioner,Clinical Nurse specialist or Physician Cross Tie Cutter who is working directly with them, had [...] for managing ADL's. HOME HEALTH CARE AGENCY: [facility] [address] [place] [address] Start of care: 24-48hrs after discharge FOR [...] April Ramirez MD [address] / [facility] [address] All VNA agencies which cover the area [...] Discharge: Patient Instructions You were admitted to [facility] after having your aortic aneurysm repaired with [...] For any problems or questions please call [phone] For issues on weeknights after 5pm and weekends please call [phone] and ask for the Vascular Fellow quality control assistant. AILYN Roberts 08/02/2022 11:52 AM documented in this encounter Discharge Instructions * Patient Instructions* Abiel Del Valle PA - 08/02/2022 10:43 AM EDT You were admitted to [facility] after having your aortic aneurysm repaired with [...] For any problems or questions please call [phone] For issues on weeknights after 5pm and weekends please call [phone] and ask for the Vascular Fellow quality control assistant. documented in this encounter Medications at Time [...] status, full code. AILYN Jin 08/01/2022 Pager: [phone] * Vincent Parham RN - 08/01/2022 6:17 AM EDT Remains A&Ox4. Denies pain. Heparin gtt continued at 1050 units/hr, next recheck for ufh at 0930, oncoming nurse to be made aware. Potassium critically low at 2.8, replacements being given. Pulses palpable in lower extremities, neuros intact. Appears in NAD at this time. * Mirlande Irby, PT - 07/31/2022 1:23 PM EDT Physical [...] on a heparin drip and transferred to [facility] ED for further evaluation by vascular surgery. He is now s/p ABF performed on 07/25, complicated by postoperative LLE ischemia necessitating OR takeback, open embolectomy of R SALES ACCOUNT EXECUTIVE, redo patch angioplasty on 07/26. He is now recovering well and has palpable pulses in both feet and normal motor/sensory function. 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 Recommend pt discharge home with 24/7 supervision and home [...] TA x2 Mirlande Irby PT, DPT Pager: [phone] Physical Therapy Inpatient Rehabilitation Department * Allyn [...] on a heparin drip and transferred to [facility] ED for further evaluation by vascular surgery. [...] 32.98) performed by Rut Aguilera MD at [facility] MAIN OR PRO EMBLC/THRMBC FEMORAL POPLITEAL AORTO-ILIAC ARTERY Left 07/26/2022 EMBOLECTOMY OR THROMBECTOMY, FEMOROPOPLITEAL, AORTOILIAC ARTERY BY LEG INCISION- LADAN (WRVU 19.48) performed by Marco Dior MD at [facility] MAIN OR PRO REMOVAL OF CLOT IN GRAFT Left 07/26/2022 THROMBECTOMY ARTERIAL,VENOUS GRAFT (NOT FOR HEMODIALYSIS GRAFT) WITH REVISION, LOWER EXTREMITY (WRVU 17.82) performed by Marco Dior MD at [facility] MAIN OR Social History: Home setup: Pt [...] Minutes, Occupational Therapy: 28 (13:22-13:50 SC/HMx2) Pager: [phone] MARGARET Leon/Joanie Occupational Therapy Rehabilitation Department * Bran Mcfarland - 07/31/2022 1:16 PM EDT Drop Pit Worker Encounter Note Patient Name: Antelmo Marquez : [id number] MR#: [id number] Admit Date: 07/24/2022 8:28 PM Hospital Day 7 days Narrative: Visited to introduce and assess acceptance of Drop Pit Worker services. Pt was not available as medical [...] on a heparin drip and transferred to [facility] ED for further evaluation by vascular surgery. [...] 07/26 - takeback, open embolectomy of R SALES ACCOUNT EXECUTIVE, redo patch angioplasty Subjective: - ANASTACIAERAJEEV VSS - Pain well controlled - No [...] who have questions please contact the health career coach that requested your imaging first. Electronically signed by: Becki Summers MD, [facility] ([phone]), at 07/25/2022 4:[address] Angiogram Aortic Lower Extremity Runoff (Exam End: [...] who have questions please contact the health career coach that requested your imaging first. Electronically signed by: Durga Lundberg MD, [facility] ([phone]), at 07/26/2022 7:58 AM Assessment & Plan: [...] necessitating OR takeback, open embolectomy of R SALES ACCOUNT EXECUTIVE, redo patch angioplasty on 07/26. He is [...] to normalize. WBC 14.2 6.5 from 8.6 /4. Will get UA. Afebrile. PLAN: - Get [...] Resuscitation - Inpatient AILYN Roberts 07/31/2022 Pager: [phone] * Lyly Baltazar APRN - 07/30/2022 9:10 [...] on a heparin drip and transferred to [facility] ED for further evaluation by vascular surgery. [...] 07/26 - takeback, open embolectomy of R SALES ACCOUNT EXECUTIVE, redo patch angioplasty Subjective: BM x2, passing [...] 07/30/22 0405 07/29/22 1340 07/29/22 0132 07/28/22 0443 07/27/22 1800 NA 140 139 139 139 138 [...] who have questions please contact the health career coach that requested your imaging first. Electronically signed by: Becki Summers MD, [facility] ([phone]), at 07/25/2022 4:[address] Angiogram Aortic Lower Extremity Runoff (Exam End: [...] who have questions please contact the health career coach that requested your imaging first. Electronically signed by: Durga Lundberg MD, [facility] ([phone]), at 07/26/2022 7:58 AM Assessment & Plan: [...] necessitating OR takeback, open embolectomy of R SALES ACCOUNT EXECUTIVE, redo patch angioplasty on 07/26. He is [...] output, continue to normalize. PLAN: - d/c CASH APPLICATIONS MANAGER - Scheduled APAP Pregbalin, PRN IV hydromorphone, [...] - Inpatient Lyly Baltazar APRN 07/30/2022 Pager: [phone] * Alaina Avalos MD - 07/29/2022 8:00 [...] on a heparin drip and transferred to [facility] ED for further evaluation by vascular surgery. [...] ??? bisacodyL 10 mg Rectal Daily ??? CASH APPLICATIONS MANAGER shift total and Settings verification Intravenous 2 Times Daily- CASH APPLICATIONS MANAGER Shift Total ??? aspirin 300 mg Rectal Daily ??? sodium chloride 0.9 % (flush) 5 mL Intravenous BID ??? senna-docusate 2 tablet Oral BID ??? sertraline 25 mg Oral Daily Operations This Hospitalization: 07/25 - ABF 07/26 - takeback, open embolectomy of R SALES ACCOUNT EXECUTIVE, redo patch angioplasty Subjective: NGT adjusted yesterday given concern for malfunction with hiccups, thereafter worked appropriately overnight Pain control adequate with CASH APPLICATIONS MANAGER Passing flatus ON, 2.15L out of NG [...] Palpable DP bilaterally Labs: Recent Labs 07/29/22 0132 07/28/22 0443 07/27/22 1800 07/27/22 0815 07/27/22 0526 WBC 9.1 8.9 9.2 10.2* 9.6* HGB 11.5* 10.3* 10.4* 11.2* 10.6* HCT 34.4* 30.7* 30.8* 32.7* 31.1* PLATELET 122* 112* 104* 96* 92* Recent Labs 07/29/22 0132 07/28/22 0443 07/27/22 1800 07/27/22 0815 07/27/22 [...] who have questions please contact the health career coach that requested your imaging first. Electronically signed by: Becki Summers MD, [facility] ([phone]), at 07/25/2022 4:[address] Angiogram Aortic Lower Extremity Runoff (Exam End: [...] who have questions please contact the health career coach that requested your imaging first. Electronically signed by: Durga Lundberg MD, [facility] ([phone]), at 07/26/2022 7:58 AM Assessment & Plan: Antelom Marquez is a 56 y.o. male with medical history significant for HTN, anxiety, 1PPD smoker who presented from an OSH with several days of lower extremity paresthesias, pain, worsening motor function and CT showing aortic occlusion. He is now s/p ABF performed on 07/25, complicated by postoperative LLE ischemia necessitating OR takeback, open embolectomy of R SALES ACCOUNT EXECUTIVE, redo patch angioplasty on 07/26. He is [...] to high output - No BM since SERVER SERVICE ASSISTANT, will advance bowel regimen today - Remove villegas - OOB, PT/OT - Cardiology consult as above, appreciate recs.Will start Statin when NG is out, will consider Eliquis when able. No hypercoagulability workup needed Dispo: floor status, Attempt Cardiopulmonary Resuscitation - Inpatient Alaina Avalos MD 07/29/2022 Pager: [phone] * Allyn Rosales OT - 07/28/2022 8:30 [...] was started on a heparin??drip??and transferred to [facility] ED for further evaluation by vascular surgery. [...] 32.98) performed by Rut Aguilera MD at [facility] MAIN OR ??? PRO EMBLC/THRMBC FEMORAL POPLITEAL AORTO-ILIAC ARTERY Left 07/26/2022 EMBOLECTOMY OR THROMBECTOMY, FEMOROPOPLITEAL, AORTOILIAC ARTERY BY LEG INCISION- LADAN (WRVU 19.48) performed by Marco Dior MD at [facility] MAIN OR ??? PRO REMOVAL OF CLOT IN GRAFT Left 07/26/2022 THROMBECTOMY ARTERIAL,VENOUS GRAFT (NOT FOR HEMODIALYSIS GRAFT) WITH REVISION, LOWER EXTREMITY (WRVU 17.82) performed by Marco Dior MD at [facility] MAIN OR Social History: Home setup: Pt [...] Considerations: full code, falls, bleeding precautions, NPO, CASH APPLICATIONS MANAGER, NGT, b/l groin wound vacs, L arterial line, AAT Subjective: I might yell but I am ready to move. Objective: Seen today for OT evaluation. Cognitive Status/Behavior: ?? Behavior / Mood: alert and cooperative ?? Alert and oriented to: person, place, date, month, year and situation ?? Follows commands: 1 step and 100% of the time ?? Attention: WFL ?? Safety awareness: WF Vision & Perception: ?? WNL/WFL Communication: [facility] Range of motion, strength, coordination: Hand dominance: right ROM: WFL Strength: BUEs 5/5 throughout Sensation: Reported numbness [...] in bilateral groin sites, able to use CASH APPLICATIONS MANAGER appropriately Education: patient have been educated on [...] this time Goals: To be achieved by 6/15/23. Patient will complete commode/toilet transfer with supervision [...] and measurable assessment of functional outcome. Pager: [phone] Allyn Rosales OTR/L 07/28/2022 Occupational Therapy Rehabilitation [...] on a heparin drip and transferred to [facility] ED for further evaluation by vascular surgery. [...] potassium chloride 10 mEq Intravenous Q2H ??? CASH APPLICATIONS MANAGER shift total and Settings verification Intravenous 2 Times Daily- CASH APPLICATIONS MANAGER Shift Total ??? aspirin 300 mg Rectal Daily ??? sodium chloride 0.9 % (flush) 5 mL Intravenous BID ??? senna-docusate 2 tablet Oral BID ??? sertraline 25 mg Oral Daily Operations This Hospitalization: 07/25 - ABF 07/26 - takeback, open embolectomy of R SALES ACCOUNT EXECUTIVE, redo patch angioplasty Subjective: NGT adjusted yesterday [...] Extremities: Palpable DP bilaterally Labs: Recent Labs 07/28/223 07/27/22 1800 07/27/22 0815 07/27/2252507/27/22 003 WBC 8.9 9.2 10.2* 9.6* 10.1* HGB 10.3* 10.4* 11.2* 10.6* 10.7* HCT 30.7* 30.8* 32.7* 31.1* 31.6* PLATELET 112* 104* 96* 92* 99* Recent Labs 07/28/2244207/27/22 1800 07/27/22 0815 07/27/2252507/27/223607/26/22 0210 07/25/22 2110 NA 139 138 138 [...] who have questions please contact the health career coach that requested your imaging first. Electronically signed by: Becki Summers MD, [facility] ([phone]), at 07/25/2022 4:[address] Angiogram Aortic Lower Extremity Runoff (Exam End: [...] who have questions please contact the health career coach that requested your imaging first. Electronically signed by: Durga Lundberg MD, [facility] ([phone]), at 07/26/2022 7:58 AM Assessment & Plan: [...] necessitating OR takeback, open embolectomy of R SALES ACCOUNT EXECUTIVE, redo patch angioplasty on 07/26. He is [...] - Inpatient Adi Hwang MD 07/28/2022 Pager: [phone] * Edwige Dominguez, PT - 07/28/2022 8:22 [...] was started on a heparin??drip??and transferred to [facility] ED for further evaluation by vascular surgery. He is now s/p ABF performed on 07/25, complicated by postoperative LLE ischemia necessitating OR takeback, open embolectomy of R SALES ACCOUNT EXECUTIVE, redo patch angioplasty on07/26. He is now recovering well and has palpable pulses in both feet and normal motor/sensory function. Patient with the following active problems: No past medical history on file. Past Surgical History: Procedure Laterality Date ??? PRO BYPASS GRAFT OTHR, AORTOBIFEMORAL N/A 07/25/2022 @BYPASS GRAFT, AORTOBIFEMORAL W\ SYNTHETIC CONDUIT (WRVU 32.98) performed by Rut Aguilera MD at [facility] MAIN OR ??? PRO EMBLC/THRMBC FEMORAL POPLITEAL AORTO-ILIAC ARTERY Left 07/26/2022 EMBOLECTOMY OR THROMBECTOMY, FEMOROPOPLITEAL, AORTOILIAC ARTERY BY LEG INCISION- LADAN (WRVU 19.48) performed by Marco Dior MD at [facility] MAIN OR ??? 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 Patient status, treatment, and mobility recommendations [...] LLE ischemia necessitating open embolectomy of R SALES ACCOUNT EXECUTIVE, multiple lines and tubes; lives alone) ?? [...] outlinedin this evaluation. Time IN / OUT: 5934-2388 Total Minutes, Physical Therapy: 34 (eval). Edwige Dominguez PT DPT 07/28/2022 Pager: [phone] Physical Therapy Inpatient Rehabilitation Department * Christelle [...] to be +6.3L Christelle Pickering RD Pager: [phone] * Earle Smith MD - 07/27/2022 7:59 [...] on a heparin drip and transferred to [facility] ED for further evaluation by vascular surgery. [...] 07/26 - takeback, open embolectomy of R SALES ACCOUNT EXECUTIVE, redo patch angioplasty Subjective: CK remains low, [...] Intake/Output Summary (Last 24 hours) at 07/27/2022 0759 Last data filed at 07/27/2022 0648 Gross per 24 hour Intake 8188 ml Output 6320 ml Net 1868 ml PHYSICAL EXAM: General: Alert, no acute distress Head: Atraumatic, non cyanotic Cardiac: Regular rate Pulmonary: Normal respiratory effort Abdominal: Soft, non distended Neuro: Grossly intact, follows commands Extremities: Palpable DP bilaterally Labs: Recent Labs 07/27/2252507/27/223607/26/22173407/26/22 1155 07/26/22 1030 WBC 9.6* 10.1* 9.3 8.6 9.9* HGB 10.6* 10.7* 11.0* 11.1* 12.2* HCT 31.1* 31.6* 33.0* 33.1* 36.3* PLATELET 92* 99* 105* 105* 108* Recent Labs 07/27/22 0507/27/223607/26/22173407/26/22115407/26/22 1030 07/26/22 0210 07/25/22 2110 07/25/22 1520 [...] - Inpatient Earle Smith MD 07/27/2022 Pager: [phone] * Adi Hwang MD - 07/26/2022 1:36 [...] bpm] I/O last 3 completed shifts: In: 34284.2 [I.V.:17382.2; Blood:228; Other:500; NG/GT:60] Out: 21769 [Urine:8825; Other:1050; Blood:646] I/O this shift: In: [...] condition and recovering well - ok for GA ASA and SQH - SBP goal 100-160 - 200/hr, continue crystalloid fluid resuscitation - q6h labs - q1h compartment / NV checks - strict NPO, NGT - HOB 30 Adi Hwang MD Vascular Surgery 07/26/22 [id number] * Tigre Sandoval MD - 07/26/2022 1:19 PM EDT Surgical Critical Care Progress Note History of Present Illness: Antelmo Marquez is a 56 y.o. man with PMH of HTN, anxiety, tobacco use who was transferred from OSH to [facility] ED on 07/24 with pulseless lower extremities [...] Mannitol administered. 14x7mm dacron graft to bilateral SALES ACCOUNT EXECUTIVE extending onto profunda arteries. End to end proximal anastomosis, end to side distal anastomoses. No SALES ACCOUNT EXECUTIVE endarterectomies performed. DP PT signals b/l at [...] 1334 07/25/22 0934 07/25/22 0421 07/24/22 2148 07/24/22 2115 NA 136 136 -- -- 139 139 [...] Labs 07/26/22 1155 07/26/22 1030 07/26/22 0210 05/30/210907/25/22 1520 07/25/22 0421 07/24/222114 WBC 8.6 9.9* 7.8 7.6 13.9* 6.6 [...] 1155 07/26/22 1030 07/26/22 0210 07/25/22210907/25/22 1520 07/24/222114 PT -- 13.3* -- -- 11.8 13.2* PTT 34 35 32 33 35 >160* INR -- 1.2 -- -- 1.0 1.2 Assessment/Plan: Antelmo Maruqez is a 56 y.o. man with pmhx [...] 1014 -- 1 Naso/Oral Tube 07/25/22 0730 [place] sump right nostril 07/25/22 0730 right nostril [...] on a heparin drip and transferred to [facility] ED for further evaluation by vascular surgery. [...] Daily Operations This Hospitalization: 07/25 - ABF Subjective: No signals in RLE overnight, ongoing [...] 07/26/2022 1722 Gross per 24 hour Intake 75569 ml Output 79127 ml Net 925 ml PHYSICAL EXAM: General: Alert, no acute distress Head: Atraumatic, non cyanotic Cardiac: Regular rate Pulmonary: Normal respiratory effort Abdominal: Soft, non distended Neuro: Grossly intact, follows commands Extremities: LLE with biphasic DP/PT signals, no RLE signals or pedal/femoral pulse Labs: Recent Labs 07/26/22 1155 07/26/22 1030 07/26/22 0210 07/25/22210907/25/22 1520 WBC 8.6 9.9* 7.8 7.6 13.9* HGB 11.1* 12.2* 12.4* 12.9* 15.3 HCT 33.1* 36.3* 36.3* 38.8* 46.9 PLATELET 105* 108* 111* 106* 151 Recent Labs 07/26/22 1155 07/26/22 1030 07/26/22 0210 07/25/22210907/25/22 1520 07/25/22 0421 NA 136 136 139 [...] - Inpatient Earle Smith MD 07/26/2022 Pager: [phone] * Deja Chambers MD - 07/25/2022 11:05 [...] - strict NPO, NGT (confirmed intraop) - 30 Adi Hwang MD Vascular Surgery 07/25/22 * Yulia Arita RN - 07/25/2022 7:50 AM EDT Heparin drip paused at 0717 for OR, per MD request. Taken to OR at 0750 with anesthesia. * Marco Dior MD - 07/25/2022 7:42 AM EDT [facility] staff I had a discussion with Mr. Marquez regarding the status of the perfusion of his lower extremities. One day ago he developed severe pain with paresthesias in both lower legs. He presented to an outsidehospital where a CT scan revealed an infra-renal aortic occlusion. Upon presentation to [facility], he has intact motor and sensory function, [...] other risks including kidney injury, bowel injury, [place], stroke, prolonged ICU stay, and graft infection, [...] on a heparin drip and transferred to [facility] ED for further evaluation by vascular surgery. [...] - Continue heparin drip, monitor UFH, Hold quality control assistant this AM for OR - Consult to pharmacy in AM for med rec re: home antihypertensive regimen - IVF: LR 100cc/hr - Pain control: tylenol, prn oxy - DVT ppx: SCDs - Continue home sertraline & clonazepam Dispo: Stepdown status, Attempt Cardiopulmonary Resuscitation - Inpatient Adi Hwang MD 07/25/2022 Pager: [phone] documented in this encounter H&P Notes * Tigre Sandoval MD - 07/25/2022 2:58 PM EDT Critical Care - Admission Note History of Present Illness: Antelmo Marquez is a 56 y.o. male with PMH of HTN, anxiety, tobacco use who was transferred from OSH to [facility] ED on 07/24 with pulseless lower extremities [...] Value Ref Range T&S only valid at [facility] Hosp L-Lactate2 Whole Blood Result Value Ref [...] Reynolds MD - 07/24/2022 9:59 PM EDT [facility] Department of Vascular Surgery Admission History and [...] on a heparin drip and transferred to [facility] ED for further evaluation by vascular surgery. [...] distal pulses and thus was transferred to [facility]. In the ED her reports significant pain [...] information for follow-up [facility], [place] [address] [place] [address] Transportation: Family Functional status prior to admission: [...] Neisha Ahn RN, BSN Case Management Work [phone] * Plan of Care - Dawn Barnett RN - 08/02/2022 1:21 AM EDT OUTCOME [...] discuss discharge planning needs. ?? provide the [facility], Office of Care Management letter from the Cashier Associate pertaining to rehabreferrals. ?? provide a letter describing our affiliations within the [facility] and educate about their right to choose where referrals are sent. ?? provide a list of Home Health Agencies / Durable Medical Equipment vendors which serve their preferred geographic area. ?? provided patient with [facility] Star Quality Rating handout. They have requested referrals to: [facility]. [address] [place] [id number] Note routed to a Reservations Specialist who will communicate referrals to facilities and provide any required information. Transportation: ambulance Barriers to discharge: Discharge planning Plan going forward: Patient to work with PT/OT to determine safe discharge plan. Care Management will continue to follow and assist with discharge planning and coordination of care as indicated. Anticipated Date of Discharge: 08/01/2022 Neisha Ahn RN, BSN Case Management Work [phone] * Plan of Care - Ifrah Hernandez [...] Prevena WVx2 in placed bilat. Midline incision, KASEY, well approximated, closed w/ helga. Voiding AUOP [...] SICU with RN. VSS on arrival and CASH APPLICATIONS MANAGER running.Pt oriented to new room. Villegas removed [...] of Discharge: 07/29/2022 Connie MONTGOMERY RN Phone: [phone] Pager: [phone] * Plan of Care - Hector Sorensen RN - 07/28/2022 6:52 AM EDT OUTCOME EVALUATION NOTE: OUTCOME SUMMARY: Pulses remained palpable, and skin warm. BP remained at desired parameter. Pt still with complaintsof pain at surgical sites, and Dilaudid CASH APPLICATIONS MANAGER pump continues to be utilized by pt. [...] Consultation: 07/27/2022 Admit Date: 07/24/2022 Patient Location: [place] [address]- Referring: Marco Dior MD Attending Automotive Consultant: Vito Gomez MD Reason for Consult: Aortic [...] acetaminophen 1,000 mg Intravenous Q6H DOM ??? CASH APPLICATIONS MANAGER shift total and Settings verification Intravenous 2 Times Daily- CASH APPLICATIONS MANAGER Shift Total ??? aspirin 300 mg Rectal [...] Recent Labs 07/27/22 1800 07/27/22 0815 07/27/22 05 NA 138 138 139 K 3.8 4.0 4.3 CL 104 103 105 CO2 24 25 25 BUN 15 11 12 CREATININE 1.08 0.99 1.03 GLUCOSE 92 107 111 Recent Labs 07/27/22 1800 07/27/22 0815 07/27/22 0526 07/27/22 003 CALCIUM 8.5 8.8 8.5 8.5 MAGNESIUM 0.81 0.82 -- 0.67* PHOS 3.4 2.3* -- 2.8 LFT's: Recent Labs 07/27/22 0526 07/27/22 0037 07/26/22 1735 BILITOT 0.3 0.3 0.3 ALBUMIN 3.1* 3.1* 3.1* ALKPHOS 47 49 47 ALT 20 22 23 AST 44* 47* 45* Coags: Recent Labs 07/27/22 0507/27/227 07/26/22 1735 07/26/22 1155 07/26/22 1030 07/25/22 2110 07/25/22 1520 07/24/22 2115 PT -- -- -- -- 13.3* -- 11.8 13.2* INR -- -- -- -- 1.2 -- 1.0 1.2 PTT 38* 34 35 34 35 < > 35 >160* FIBRINOGEN 575* 533* 486* 421* 438* < > 402* -- < > = values in this interval not displayed. Cardiac enzymes: Recent Labs 07/27/2252507/27/223607/26/22 1735 CK 1,164* 1,266* 1,303* CTA LE [...] surrogate would be surrogate decision maker per [place] surrogate decision making law. (Only good for 180 days) Any patient receiving care in [place] must abide by [place] law. The hierarchy for surrogate decision making [...] (i) The agent with financial power of trust and estates attorney or a conservator appointed in accordance [...] updated physical address. Below is correct address: [address] [place] [address] Social & Family Supports: All names listed [...] him to bring pts insurance card to [facility] when he visits Primary Insurance: [place] Medicaid- [id number] ( levi emailed to update) Payor: / Secondary Insurance: N/A ; Prescription Coverage: yes [facility] [facility] Status: Patient is a : No Primary Care Provider - PCP is April Ramirez at [facility]( levi emailed to update) Patient/Caregiver Goals [...] for : status post Aortobifemoral bypass. Pts sister, Lubna states that pt is on disability, has PCP, and has provided this RN with his updated address.She states that pt lives alone, has family/friends that live nearby, and that he was indep with [employer], just bought a new truck. States that he has [place] Medicaid, as she has helped him with the paperwork. She also reports that pt has a son, Antelmo Monroy And that he is planning to come to the hospital later today. Pts sister, lives 2 hours away in [place]. ?Plan: pending medical course/therapy evaluations A member of the Care Management team will continue to monitor progress, follow for continuity of care and assist with transition of care planning. Arlene Black RN CM, BSN, [facility] Ext [phone] * Op Note - Dayne Pedroza MD - 07/26/2022 8:05 AM EDT [facility] Operative Note Patient Name: Antelmo Marquez : [id number] MR#: [id number] Case Date: 07/26/2022 Surgeon: Surgeon(s) and Role: [...] backbleeding from the SFA andprofunda branches. The kalispel left iliac vessel was embolectomized with a [...] Aguilera MD - 07/25/2022 9:30 AM EDT [facility] Operative Note Patient Name: Antelmo Marquez : [id number] MR#: [id number] Case Date: 07/25/2022 Surgeon: Surgeon(s) and Role: [...] Mannitol administered. 14x7mm dacron graft to bilateral SALES ACCOUNT EXECUTIVE extending onto profunda arteries. End to end proximal anastomosis, end to side distal anastomoses. No SALES ACCOUNT EXECUTIVE endarterectomies performed. DP PT signals b/l at [...] of the profunda. To do this,??the proximal SALES ACCOUNT EXECUTIVE, superficial femoral, circumflex and profunda arteries were [...] Rut Aguilera MD 07/27/2022 * Plan of Care - Shaye Jimenez RN - 07/25/2022 5:34 [...] arrives via EMS as hospital transfer from [facility]. Aortic occlusion. 3 days intermittent pain, ladan [...] AM EDT Emblc/Thrmbc Femoral Popliteal Aorto-Iliac Artery (15318) 07/26/2022 7:20 AM EDT concern for occluded L ABF limb Removal Of Clot In Graft (44018) 07/26/2022 7:20 AM EDT concern for occluded [...] PM EDT BLOOD GAS ARTERIAL POC Routine 5:42 PM EDT XR CHEST ONE VIEW Routine 07/25/2022 3:5 3 PM EDT BLOOD GAS ARTERIAL POC Routine 3:42 PM EDT HEMOGRAM Routine 07/25/2022 3:20 [...] AM EDT BLOOD GAS ARTERIAL POC Routine 10:40 AM EDT BLOOD GAS ARTERIAL POC Routine 9:34 AM EDT BYPASS GRAFT, AORTOBIFEMORAL W\ SYNTHETIC CONDUIT Routine [...] 07/24/2022 9:15 PM EDT TYPE AND SCREEN ([facility]/[place]) STAT 07/24/2022 9:15 PM EDT COMPREHENSIVE METABOLIC [...] who have questions please contact the health career coach that requested your imaging first. ? Electronically signed by: Deandre Machado MD, [facility] ([phone]), at 09/06/2022 3:49 PM Narrative 09/06/2022 3:49 [...] administration of contrast. Administered 74.0 ml of [id number] mg/ml. Maximum intensity projection (MIP) were reformatted. [...] patients who have questions please contactthe health career coach that requested your imaging first. Electronically signed by: Deandre Machado MD, [facility]([phone]), at 09/06/2022 3:49 PM Marco Dior MD IMG CT ORDERABLES * (ABNORMAL) Differential, Automated (08/02/2022 5:02 AM EDT) Neutrophil % 55.9 % [facility] Neutrophil Absolute 4.31 1.70 - 6.10 x10(3)/mc L [facility] Lymph % 31.3 % [facility] Lymphocytes Abs 2.4 0.9 - 3.2 x10(3)/ L [facility] Monocyte % 9.4 % [facility] Monocyte Abs 0.7 0.3 - 0.9 x10(3)/mc L [facility] Eos % 1.8 % [facility] Eosinophils Abs 0.1 0.0 - 0.4 x10(3)/[facility] Basophil % 0.4 % [facility] Baso Absolute 0.0 0.0 - 0.1 x10(3)/[facility] Immature Gran % 1.20 % [facility] Comment: Immature granulocytes(IG's)percentage and absolute count will include metamyelocytes, myelocytes, and promyelocytes. Blood smears from CBCs yielding IG's will be scanned manually for concordance. If this scan disagrees with the automated IG or if promyelocytes are noted, a manual differential will be performed. Immature Gran Absolute 0.09(H) 0.00 - 0.04 x10(3)/ L [facility] Blood 08/02/2022 5:02 AM EDT 08/02/2022 5:43 AM EDT Narrative Resulting Agency Comment Spec In Lab Alaina Avalos MD HEMATOLOGY ORDERABL ES [facility] [place] [address] * (ABNORMAL) Hemogram (08/02/2022 5:02 AM EDT) White Blood Cell 7.7 4.0 - 9.5 x10(3)/ L [facility] Red Blood Cell 3.48(L) 4.58 - 5.54 x10(6)/[facility] Hemoglobin 10.9(L) 13.7 - 16.5 g/dL [facility] Hematocrit 32.9(L) 40.5 - 48.5 % [facility] Mean Cell Volume 94.5(H) 82.9 - 93.1 fL [facility] Mean Cell Hemoglobin 31.3 27.5 - 32.1 pg [facility] Mean Cell Hemoglobin Concentration 33.1 32.0 - 35.7 g/dL [facility] Platelet 253 145 - 357 x10(3)/mc L [facility] RDW Standard Deviation 52.1(H) 36.0 - 45.0 fL [facility] RDW coefficient of variation 15.1(H) 11.4 - 13.8 % [facility] Mean Platelet Volume 9.6 7.6 - 12.9 fL [facility] NRBC% auto 0.0 % [facility] NRBC Absolute 0.000 0.000 - 0.000 x10(3)/mc L [facility] Blood 08/02/2022 5:02 AM EDT 08/02/2022 5:43 AM EDT Narrative Resulting Agency Comment Spec In Lab Alaina Avalos MD HEMATOLOGY ORDERABL ES [facility] [place] [address] * Heparin (unfractionated) Level (08/02/2022 5:02 AM EDT) UF Heparin 0.40 IU/mL [facility] Comment: Heparin (anti-Xa) levels should [...] MD HEMATOLOGY ORDERABLE S Performing Organization Address City/[facility]/ZIP Co de Phone Number [facility] [place] [address] * Phosphorus (08/02/2022 5:02 AM EDT) Phosphorus 3.9 2.5 - 4.5 mg/dL [facility] Blood 08/02/2022 5:02 AM EDT 08/02/2022 5:43 AM EDT Narrative Resulting Agency Comment Spec In Lab Marco Dior MD CHEMISTRY ORDERABLES Performing Organization Address [facility] Co de Phone Number [facility] [place] [address] * Magnesium (08/02/2022 5:02 AM EDT) Magnesium 0.80 0.69 - 1.07 mmol/L [facility] Blood 08/02/2022 5:02 AM EDT 08/02/2022 5:43 AM EDT Narrative Resulting Agency Comment Spec In Lab Marco Dior MD CHEMISTRY ORDERABLES Performing Organization Address [facility] Co de Phone Number [facility] [place] [address] * (ABNORMAL) Basic Metabolic Panel (non-fasting) (08/02/2022 5:02 AM EDT) Glucose 120 65 - 199 mg/dL [facility] Comment:Diabetes: >=200 mg/d L plus symptoms Blood Urea Nitrogen 19 10 - 20 mg/dL [facility] Creatinine 0.97 0.80 - 1.50 mg/dL [facility] Sodium 136 135 - 145 mmol/L [facility] Potassium 3.2(L) 3.5 - 5.0 mmol/L [facility] Comment: Please note: ??Patients with WBC >100,000 may have falsely elevated Potassium levels. ??For accurate Potassium quantification in these patients send serum separator tube (gold top) for subsequent determinations. ??Contact the Clinical Chemistry Laboratory if there are any questions. Chloride 103 98 - 107 mmol/L [facility] Carbon Dioxide 22 22 - 31 mmol/L [facility] Anion Gap 11 5 - 15 mmol/L [facility] Calcium 8.5 8.5 - 10.5 mg/dL [facility] Est Glomerular Filtration Rate 93 >=60 mL/min/1. 73 m?? [facility] Comment: This patient's estimated GFR [...] In Lab Marco Dior MD CHEMISTRY ORDERABLES [facility] [address] * Heparin (unfractionated) Level (08/02/2022 12:12 AM EDT) UF Heparin 0.38 IU/mL [facility] Comment: Heparin (anti-Xa) levels [...] MD HEMATOLOGY ORDERABLE S Performing Organization Address [facility] Co de Phone Number [facility] [place] [address] * Heparin (unfractionated) Level (08/01/2022 5:00 PM EDT) UF Heparin 0.43 IU/mL [facility] Comment: Heparin (anti-Xa) levels should [...] MD HEMATOLOGY ORDERABLE S Performing Organization Address [facility] Co de Phone Number [facility] [place] [address] * (ABNORMAL) Basic Metabolic Panel (non-fasting) (08/01/2022 2:09 PM EDT) Glucose 113 65 - 199 mg/dL [facility] Comment:Diabetes: >=200 mg/d L plus symptoms Blood Urea Nitrogen 23(H) 10 - 20 mg/dL [facility] Creatinine 0.93 0.80 - 1.50 mg/dL [facility] Sodium 135 135 - 145 mmol/L [facility] Potassium 3.6 3.5 - 5.0 mmol/L [facility] Comment: Please note: ??Patients with WBC >100,000 may have falsely elevated Potassium levels. ??For accurate Potassium quantification in these patients send serum separator tube (gold top) for subsequent determinations. ??Contact the Clinical Chemistry Laboratory if there are any questions. Chloride 102 98 - 107 mmol/L [facility] Carbon Dioxide 23 22 - 31 mmol/L [facility] Anion Gap 10 5 - 15 mmol/L [facility] Calcium 8.4(L) 8.5 - 10.5 mg/dL [facility] Est Glomerular Filtration Rate 98 >=60 mL/min/1. 73 m?? [facility] Comment: This patient's estimated GFR [...] Dior MD CHEMISTRY ORDERABLES Performing Organization Address City/State/[facility] Co de Phone Number [facility] [place] [address] * Heparin (unfractionated) Level (08/01/2022 9:58 AM EDT) UF Heparin 0.19 IU/mL [facility] Comment: Heparin (anti-Xa) levels [...] Lab Marco Dior MD HEMATOLOGY ORDERABLE S [facility] [place] [address] * (ABNORMAL) Differential, Automated (08/01/2022 2:44 AM EDT) Neutrophil % 64.6 % [facility] Neutrophil Absolute 6.45(H) 1.70 - 6.10 x10(3)/mc L [facility] Lymph % 22.3 % [facility] Lymphocytes Abs 2.2 0.9 - 3.2 x10(3)/mc L [facility] Monocyte % 9.6 % [facility] Monocyte Abs 1.0(H) 0.3 - 0.9 x10(3)/mc L [facility] Eos % 1.6 % [facility] Eosinophils Abs 0.2 0.0 - 0.4 x10(3)/mc L [facility] Basophil % 0.5 % [facility] Baso Absolute 0.0 0.0 - 0.1 x10(3)/mc L [facility] Immature Gran % 1.40 % [facility] Comment: Immature granulocytes(IG's)percentage and absolute count will include metamyelocytes, myelocytes, and promyelocytes. Blood smears from CBCs yielding IG's will be scanned manually for concordance. If this scan disagrees with the automated IG or if promyelocytes are noted, a manual differential will be performed. Immature Gran Absolute 0.14(H) 0.00 - 0.04 x10(3)/mc L [facility] Blood 08/01/2022 2:44 AM EDT 08/01/2022 2:57 AM EDT Narrative Resulting Agency Comment Spec In Lab Alaina Avalos MD HEMATOLOGY ORDERABL ES Performing Organization Address City/[facility]/ZIP Co de Phone Number [facility] [place] [address] * (ABNORMAL) Hemogram (08/01/2022 2:44 AM EDT) White Blood Cell 10.0(H) 4.0 - 9.5 x10(3)/mc L [facility] Red Blood Cell 4.01(L) 4.58 - 5.54 x10(6)/mc L [facility] Hemoglobin 12.3(L) 13.7 - 16.5 g/dL [facility] Hematocrit 36.9(L) 40.5 - 48.5 % [facility] Mean Cell Volume 92.0 82.9 - 93.1 fL [facility] Mean Cell Hemoglobin 30.7 27.5 - 32.1 pg [facility] Mean Cell Hemoglobin Concentration 33.3 32.0 - 35.7 g/dL [facility] Platelet 255 145 - 357 x10(3)/mc L [facility] RDW Standard Deviation 49.2(H) 36.0 - 45.0 fL [facility] RDW coefficient of variation 14.7(H) 11.4 - 13.8 % [facility] Mean Platelet Volume 9.3 7.6 - 12.9 fL [facility] NRBC% auto 0.0 % [facility] NRBC Absolute 0.000 0.000 - 0.000 x10(3)/mc L [facility] Blood 08/01/2022 2:44 AM EDT 08/01/2022 2:57 AM EDT Narrative Resulting Agency Comment Spec In Lab Alaina Avalos MD HEMATOLOGY ORDERABL ES Performing Organization Address [facility]/ZIP Co de Phone Number [facility] [place] [address] * Heparin (unfractionated) Level (08/01/2022 2:44 AM EDT) UF Heparin 0.24 IU/mL [facility] Comment: Heparin (anti-Xa) levels should be [...] MD HEMATOLOGY ORDERABLE S Performing Organization Address [facility] de Phone Number [facility] [place] [address] * Phosphorus (08/01/2022 2:44 AM EDT) Phosphorus 3.5 2.5 - 4.5 mg/dL [facility] Blood 08/01/2022 2:44 AM EDT 08/01/2022 2:57 AM EDT Narrative Resulting Agency Comment Spec In Lab Marco Dior MD CHEMISTRY ORDERABLES Performing Organization Address [facility] de Phone Number [facility] [place] [address] * Magnesium (08/01/2022 2:44 AM EDT) Magnesium 0.73 0.69 - 1.07 mmol/L [facility] Blood 08/01/2022 2:44 AM EDT 08/01/2022 2:57 AM EDT Narrative Resulting Agency Comment Spec In Lab Marco Dior MD CHEMISTRY ORDERABLES Performing Organization Address [facility]/ZIP Co de Phone Number [facility] [place] [address] * (ABNORMAL) Basic Metabolic Panel (non-fasting) (08/01/2022 2:44 AM EDT) Glucose 94 65 - 199 mg/dL [facility] Comment:Diabetes: >=200 mg/d L plus symptoms Blood Urea Nitrogen 29(H) 10 - 20 mg/dL [facility] Creatinine 1.05 0.80 - 1.50 mg/dL [facility] Sodium 137 135 - 145 mmol/L [facility] Potassium 2.8(Criti willie) 3.5 - 5.0 mmol/L [facility] Comment: called by bm/read back by kylee de anda 08/01/22 7444 Please note: ??Patients with WBC >100,000 may have falsely elevated Potassium levels. ??For accurate Potassium quantification in these patients send serum separator tube (gold top) for subsequent determinations. ??Contact the Clinical Chemistry Laboratory if there are any questions. Chloride 100 98 - 107 mmol/L [facility] Carbon Dioxide 22 22 - 31 mmol/L [facility] Anion Gap 15 5 - 15 mmol/L [facility] Calcium 8.7 8.5 - 10.5 mg/dL [facility] Est Glomerular Filtration Rate 84 >=60 mL/min/1. 73 m?? [facility] Comment: This patient's estimated GFR [...] In Lab Marco Dior MD CHEMISTRY ORDERABLES [facility] [place] [address] * (ABNORMAL) Urinalysis Microscopic Exam (07/31/2022 6:50 PM EDT) RBC, Urine 9(H) 0 - 3 /HPF [facility] WBC, Urine 2 0 - 3 /HPF [facility] Squamous Epithelial Cells Raw Data, Urine 1 <=4 /HPF [facility] Hyaline Casts, Urine 2 0 - 2 /LPF [facility] Clean Catch Urine 07/31/2022 6:50 PM EDT 07/31/2022 7:01 PM EDT Narrative Resulting Agency Comment Spec In Lab Abiel ROBERTSON URINE ORDERABLES Performing Organization Address [facility] Co de Phone Number [facility] [place] [address] * Urine Hold (07/31/2022 6:50 PM EDT) Hold, Urine Sample in lab. [facility] Urine Urine / Unknown 07/31/2022 6 :50 PM EDT 07/31/2022 7:02 PM EDT Abiel ROBERTSON URINE ORDERABLES Performing Organization Address [facility] Co de Phone Number [facility] [place] [address] * (ABNORMAL) Urinalysis with reflex Culture (07/31/2022 6:50 PM EDT) Glucose, Urine Dipstick Negative Negative mg/dL [facility] Protein, Urine Dipstick Trace(A) Negative mg/dL [facility] Bilirubin, Urine Dipstick Moderate(A) Negative mg/dL [facility] Comment: Clinical correlation required for positive Urine Bilirubin results as false positive may occur with some drugs and drug related products. If a false positive is suspected a serum total bilirubin should be considered if clinically indicated. Urobilinogen, Urine Dipstick Normal Normal mg/dL [facility] pH, Urn (dipstick) 6.0 5.0 - 8.0 [facility] Blood, Urine Dipstick Negative Negative mg/dL [facility] Ketone, Urine Dipstick 15(A) Negative mg/dL [facility] Nitrite, Urine Dipstick Negative Negative [facility] Leukocytes, Urine Dipstick Trace(A) Negative mcL [facility] Appearance, Urine Dipstick Cloudy(A) Clear [facility] Specific [place] Urine Automated >=1.030(A) 1.005 - 1.030 [facility] Color, Urine Dipstick Dark Yellow Yellow [facility] Reflex to Culture No [facility] Clean Catch Urine 07/31/2022 6:50 PM EDT 07/31/2022 7:01 PM EDT Narrative Resulting Agency Comment Spec In Lab Marco Dior MD URINE ORDERABLES Performing Organization Address [facility] [place] [address] * Heparin (unfractionated) Level (07/31/2022 6:17 PM EDT) UF Heparin <0.04 IU/mL [facility] Comment: Specimen drawn more than one [...] MD HEMATOLOGY ORDERABLE S Performing Organization Address City/[facility]/ZIP [place] [address] * (ABNORMAL) Differential, Automated (07/31/2022 5:50 AM EDT) Neutrophil % 66.1 % [facility] Neutrophil Absolute 9.40(H) 1.70 - 6.10 x10(3)/mc L [facility] Lymph % 21.7 % [facility] Lymphocytes Abs 3.1 0.9 - 3.2 x10(3)/[facility] Monocyte % 9.0 % [facility] Monocyte Abs 1.3(H) 0.3 - 0.9 x10(3)/[facility] Eos % 1.5 % [facility] Eosinophils Abs 0.2 0.0 - 0.4 x10(3)/[facility] Basophil % 0.4 % [facility] Baso Absolute 0.1 0.0 - 0.1 x10(3)/[facility] Immature Gran % 1.30 % [facility] Comment: Immature granulocytes(IG's)percentage and absolute count will include metamyelocytes, myelocytes, and promyelocytes. Blood smears from CBCs yielding IG's will be scanned manually for concordance. If this scan disagrees with the automated IG or if promyelocytes are noted, a manual differential will be performed. Immature Gran Absolute 0.18(H) 0.00 - 0.04 x10(3)/ L [facility] Blood 07/31/2022 5:50 AM EDT 07/31/2022 6:02 AM EDT Narrative Resulting Agency Comment Spec In Lab Alaina Avalos MD HEM[place] [address] * (ABNORMAL) Hemogram (07/31/2022 5:50 AM EDT) White Blood Cell 14.2(H) 4.0 - 9.5 x10(3)/ L [facility] Red Blood Cell 4.06(L) 4.58 - 5.54 x10(6)/mc L [facility] Hemoglobin 12.7(L) 13.7 - 16.5 g/dL [facility] Hematocrit 38.8(L) 40.5 - 48.5 % [facility] Mean Cell Volume 95.6(H) 82.9 - 93.1 fL [facility] Mean Cell Hemoglobin 31.3 27.5 - 32.1 pg [facility] Mean Cell Hemoglobin Concentration 32.7 32.0 - 35.7 g/dL [facility] Platelet 284 145 - 357 x10(3)/mc L [facility] RDW Standard Deviation 52.3(H) 36.0 - 45.0 fL [facility] RDW coefficient of variation 15.1(H) 11.4 - 13.8 % [facility] Mean Platelet Volume 9.5 7.6 - 12.9 fL [facility] NRBC% auto 0.0 % [facility] NRBC Absolute 0.000 0.000 - 0.000 x10(3)/mc L [facility] Blood 07/31/2022 5:50 AM EDT 07/31/2022 6:02 AM EDT Narrative Resulting Agency Comment Spec In Lab Alaina Avalos MD HEMATOLOGY ORDERABL ES [facility] [place] [address] * Phosphorus (07/31/2022 5:50 AM EDT) Phosphorus 4.0 2.5 - 4.5 mg/dL [facility] Blood 07/31/2022 5:50 AM EDT 07/31/2022 6:02 AM EDT Narrative Resulting Agency Comment Spec In Lab Marco Dior MD CHEMISTRY ORDERABLES [facility] [place] [address] * Magnesium (07/31/2022 5:50 AM EDT) Magnesium 0.81 0.69 - 1.07 mmol/L [facility] Blood 07/31/2022 5:50 AM EDT 07/31/2022 6:02 AM EDT Narrative Resulting Agency Comment Spec In Lab Marco Dior MD CHEMISTRY ORDERABLES [facility] [place] [address] * (ABNORMAL) Basic Metabolic Panel (non-fasting) (07/31/2022 5:50 AM EDT) Glucose 87 65 - 199 mg/dL [facility] Comment:Diabetes: >=200 mg/d L plus symptoms Blood Urea Nitrogen 26(H) 10 - 20 mg/dL [facility] Creatinine 0.95 0.80 - 1.50 mg/dL [facility] Sodium 133(L) 135 - 145 mmol/L [facility] Potassium 3.2(L) 3.5 - 5.0 mmol/L [facility] Comment: Please note: ??Patients with WBC >100,000 may have falsely elevated Potassium levels. ??For accurate Potassium quantification in these patients send serum separator tube (gold top) for subsequent determinations. ??Contact the Clinical Chemistry Laboratory if there are any questions. Chloride 97(L) 98 - 107 mmol/L [facility] Carbon Dioxide 20(L) 22 - 31 mmol/L [facility] Anion Gap 16(H) 5 - 15 mmol/L [facility] Calcium 9.2 8.5 - 10.5 mg/dL [facility] Est Glomerular Filtration Rate 95 >=60 mL/min/1. 73 m?? [facility] Comment: This patient's estimated GFR [...] In Lab Marco Dior MD CHEMI[place] [address] * (ABNORMAL) Differential, Automated (07/30/2022 4:05 AM EDT) Neutrophil % 76.2 % [facility] Neutrophil Absolute 6.55(H) 1.70 - 6.10 x10(3)/mc L [facility] Lymph % 14.3 % [facility] Lymphocytes Abs 1.2 0.9 - 3.2 x10(3)/mc L [facility] Monocyte % 7.4 % [facility] Monocyte Abs 0.6 0.3 - 0.9 x10(3)/ L [facility] Eos % 0.8 % [facility] Eosinophils Abs 0.1 0.0 - 0.4 x10(3)/mc L [facility] Basophil % 0.3 % [facility] Baso Absolute 0.0 0.0 - 0.1 x10(3)/mc L [facility] Immature Gran % 1.00 % [facility] Comment: Immature granulocytes(IG's)percentage and absolute count will include metamyelocytes, myelocytes, and promyelocytes. Blood smears from CBCs yielding IG's will be scanned manually for concordance. If this scan disagrees with the automated IG or if promyelocytes are noted, a manual differential will be performed. Immature Gran Absolute 0.09(H) 0.00 - 0.04 x10(3)/mc L [facility] Blood 07/30/2022 4:05 AM EDT 07/30/2022 4:11 AM EDT Narrative Resulting Agency Comment Spec In Lab Adi Hwang MD HEMATOLOGY ORDER TABITHA Performing Organization Address City/[facility]/ZIP [place] [address] * (ABNORMAL) Hemogram (07/30/2022 4:05 AM EDT) White Blood Cell 8.6 4.0 - 9.5 x10(3)/mc L [facility] Red Blood Cell 3.84(L) 4.58 - 5.54 x10(6)/mc L [facility] Hemoglobin 12.1(L) 13.7 - 16.5 g/dL [facility] Hematocrit 36.9(L) 40.5 - 48.5 % [facility] Mean Cell Volume 96.1(H) 82.9 - 93.1 fL [facility] Mean Cell Hemoglobin 31.5 27.5 - 32.1 pg [facility] Mean Cell Hemoglobin Concentration 32.8 32.0 - 35.7 g/dL [facility] Platelet 179 145 - 357 x10(3)/mc L [facility] RDW Standard Deviation 52.4(H) 36.0 - 45.0 fL [facility] RDW coefficient of variation 15.1(H) 11.4 - 13.8 % [facility] Mean Platelet Volume 9.7 7.6 - 12.9 fL [facility] NRBC% auto 0.0 % [facility] NRBC Absolute 0.000 0.000 - 0.000 x10(3)/mc L [facility] Blood 07/30/2022 4:05 AM EDT 07/30/2022 4:11 AM EDT Narrative Resulting Agency Comment Spec In Lab Adi Hwang MD HEMATOLOGY ORDER TABITHA [facility] [place] [address] * (ABNORMAL) Phosphorus (07/30/2022 4:05 AM EDT) Phosphorus 4.7(H) 2.5 - 4.5 mg/dL [facility] Blood 07/30/2022 4:05 AM EDT 07/30/2022 4:11 AM EDT Narrative Resulting Agency Comment Spec In Lab Marco Dior MD CHEMISTRY ORDERABLES Performing Organization Address City/[facility]/ZIP Co de Phone Number [facility] [place] [address] * Magnesium (07/30/2022 4:05 AM EDT) Magnesium 0.80 0.69 - 1.07 mmol/L [facility] Blood 07/30/2022 4:05 AM EDT 07/30/2022 4:11 AM EDT Narrative Resulting Agency Comment Spec In Lab Marco Dior MD CHEMISTRY ORDERABLES Performing Organization Address [facility] Co de Phone Number [facility] [place] [address] * (ABNORMAL) Basic Metabolic Panel (non-fasting) (07/30/2022 4:05 AM EDT) Glucose 84 65 - 199 mg/dL [facility] Comment:Diabetes: >=200 mg/d L plus symptoms Blood Urea Nitrogen 22(H) 10 - 20 mg/dL [facility] Creatinine 0.98 0.80 - 1.50 mg/dL [facility] Sodium 140 135 - 145 mmol/L [facility] Potassium 3.9 3.5 - 5.0 mmol/L [facility] Comment: Please note: ??Patients with WBC >100,000 may have falsely elevated Potassium levels. ??For accurate Potassium quantification in these patients send serum separator tube (gold top) for subsequent determinations. ??Contact the Clinical Chemistry Laboratory if there are any questions. Chloride 101 98 - 107 mmol/L [facility] Carbon Dioxide 20(L) 22 - 31 mmol/L [facility] Anion Gap 19(H) 5 - 15 mmol/L [facility] Calcium 9.2 8.5 - 10.5 mg/dL [facility] Est Glomerular Filtration Rate 92 >=60 mL/min/1. 73 m?? [facility] Comment: This patient's estimated GFR [...] In Lab Marco Dior MD CHEMISTRY ORDERABLES [facility] [place] [address] * (ABNORMAL) Basic Metabolic Panel (non-fasting) (07/29/2022 1:40 PM EDT) Glucose 68 65 - 199 mg/dL [facility] Comment:Diabetes: >=200 mg/d L plus symptoms Blood Urea Nitrogen 18 10 - 20 mg/dL [facility] Creatinine 1.02 0.80 - 1.50 mg/dL [facility] Sodium 139 135 - 145 mmol/L [facility] Potassium 4.0 3.5 - 5.0 mmol/L [facility] Comment: Please note: ??Patients with WBC >100,000 may have falsely elevated Potassium levels. ??For accurate Potassium quantification in these patients send serum separator tube (gold top) for subsequent determinations. ??Contact the Clinical Chemistry Laboratory if there are any questions. Chloride 99 98 - 107 mmol/L [facility] Carbon Dioxide 19(L) 22 - 31 mmol/L [facility] Anion Gap 21(H) 5 - 15 mmol/L [facility] Calcium 8.8 8.5 - 10.5 mg/dL [facility] Est Glomerular Filtration Rate 87 >=60 mL/min/1. 73 m?? [facility] Comment: This patient's estimated GFR [...] Resulting Agency Comment Spec In Lab Lyly Baltazar [employer]NAG[employer] PROFESSOR CHEMISTRY ORDERABL ES [facility] [place] [address] * (ABNORMAL) Differential, Automated (07/29/2022 1:32 AM EDT) Neutrophil % 76.9 % [facility] Neutrophil Absolute 6.96(H) 1.70 - 6.10 x10(3)/mc L [facility] Lymph % 15.7 % [facility] Lymphocytes Abs 1.4 0.9 - 3.2 x10(3)/mc L [facility] Monocyte % 5.7 % [facility] Monocyte Abs 0.5 0.3 - 0.9 x10(3)/mc L [facility] Eos % 0.2 % [facility] Eosinophils Abs 0.0 0.0 - 0.4 x10(3)/mc L [facility] Basophil % 0.2 % [facility] Baso Absolute 0.0 0.0 - 0.1 x10(3)/mc L [facility] Immature Gran % 1.30 % [facility] Comment: Immature granulocytes(IG's)percentage and absolute count will include metamyelocytes, myelocytes, and promyelocytes. Blood smears from CBCs yielding IG's will be scanned manually for concordance. If this scan disagrees with the automated IG or if promyelocytes are noted, a manual differential will be performed. Immature Gran Absolute 0.12(H) 0.00 - 0.04 x10(3)/mc L [facility] Blood 07/29/2022 1:32 AM EDT 07/29/2022 1:47 AM EDT Narrative Resulting Agency Comment Spec In Lab Adi Hwang MD HEMATOLOGY ORDER TABITHA [facility] [place] [address] * (ABNORMAL) Hemogram (07/29/2022 1:32 AM EDT) White Blood Cell 9.1 4.0 - 9.5 x10(3)/mc L [facility] Red Blood Cell 3.64(L) 4.58 - 5.54 x10(6)/mc L [facility] Hemoglobin 11.5(L) 13.7 - 16.5 g/dL [facility] Hematocrit 34.4(L) 40.5 - 48.5 % [facility] Mean Cell Volume 94.5(H) 82.9 - 93.1 fL [facility] Mean Cell Hemoglobin 31.6 27.5 - 32.1 pg [facility] Mean Cell Hemoglobin Concentration 33.4 32.0 - 35.7 g/dL [facility] Platelet 122(L) 145 - 357 x10(3)/mc L [facility] RDW Standard Deviation 52.0(H) 36.0 - 45.0 fL [facility] RDW coefficient of variation 15.1(H) 11.4 - 13.8 % [facility] Mean Platelet Volume 10.1 7.6 - 12.9 fL [facility] NRBC% auto 0.0 % [facility] NRBC Absolute 0.000 0.000 - 0.000 x10(3)/mc L [facility] Blood 07/29/2022 1:32 AM EDT 07/29/2022 1:47 AM EDT Narrative Resulting Agency Comment Spec In Lab Adi Hwang MD HEMATOLOGY ORDER TABITHA [facility] [place] [address] * Phosphorus (07/29/2022 1:32 AM EDT) Phosphorus 3.8 2.5 - 4.5 mg/dL [facility] Blood 07/29/2022 1:32 AM EDT 07/29/2022 1:47 AM EDT Narrative Resulting Agency Comment Spec In Lab Marco Dior MD CHEMISTRY ORDERABLES Performing Organization Address City/[facility] Co de Phone Number [facility] [place] [address] * Magnesium (07/29/2022 1:32 AM EDT) Magnesium 0.83 0.69 - 1.07 mmol/L [facility] Blood 07/29/2022 1:32 AM EDT 07/29/2022 1:47 AM EDT Narrative Resulting Agency Comment Spec In Lab Marco Dior MD CHEMISTRY ORDERABLES Performing Organization Address [facility] de Phone Number [facility] [place] [address] * (ABNORMAL) Basic Metabolic Panel (non-fasting) (07/29/2022 1:32 AM EDT) Glucose 71 65 - 199 mg/dL [facility] Comment:Diabetes: >=200 mg/d L plus symptoms Blood Urea Nitrogen 18 10 - 20 mg/dL [facility] Creatinine 1.00 0.80 - 1.50 mg/dL [facility] Sodium 139 135 - 145 mmol/L [facility] Potassium 3.9 3.5 - 5.0 mmol/L [facility] Comment: Please note: ??Patients with WBC >100,000 may have falsely elevated Potassium levels. ??For accurate Potassium quantification in these patients send serum separator tube (gold top) for subsequent determinations. ??Contact the Clinical Chemistry Laboratory if there are any questions. Chloride 100 98 - 107 mmol/L [facility] Carbon Dioxide 23 22 - 31 mmol/L [facility] Anion Gap 16(H) 5 - 15 mmol/L [facility] Calcium 8.7 8.5 - 10.5 mg/dL [facility] Est Glomerular Filtration Rate 89 >=60 mL/min/1. 73 m?? [facility] Comment: This patient's estimated GFR [...] In Lab Marco Dior MD CHEMISTRY ORDERABLES [facility] [place] [address] * (ABNORMAL) Differential, Automated (07/28/2022 4:43 AM EDT) Neutrophil % 72.5 % [facility] Neutrophil Absolute 6.44(H) 1.70 - 6.10 x10(3)/mc L [facility] Lymph % 21.2 % [facility] Lymphocytes Abs 1.9 0.9 - 3.2 x10(3)/mc L [facility] Monocyte % 5.6 % [facility] Monocyte Abs 0.5 0.3 - 0.9 x10(3)/mc L [facility] Eos % 0.0 % [facility] Eosinophils Abs 0.0 0.0 - 0.4 x10(3)/mc L [facility] Basophil % 0.1 % [facility] Baso Absolute 0.0 0.0 - 0.1 x10(3)/mc L [facility] Immature Gran % 0.60 % [facility] Comment: Immature granulocytes(IG's)percentage and absolute count will include metamyelocytes, myelocytes, and promyelocytes. Blood smears from CBCs yielding IG's will be scanned manually for concordance. If this scan disagrees with the automated IG or if promyelocytes are noted, a manual differential will be performed. Immature Gran Absolute 0.05(H) 0.00 - 0.04 x10(3)/mc L [facility] Blood 07/28/2022 4:43 AM EDT 07/28/2022 4:51 AM EDT Narrative Resulting Agency Comment Spec In Lab Marco Dior MD HEMATOLOGY ORDERABLE S Performing Organization Address City/[facility]/ZIP Co de Phone Number [facility] [place] [address] * (ABNORMAL) Hemogram (07/28/2022 4:43 AM EDT) White Blood Cell 8.9 4.0 - 9.5 x10(3)/ L [facility] Red Blood Cell 3.24(L) 4.58 - 5.54 x10(6)/ L [facility] Hemoglobin 10.3(L) 13.7 - 16.5 g/dL [facility] Hematocrit 30.7(L) 40.5 - 48.5 % [facility] Mean Cell Volume 94.8(H) 82.9 - 93.1 fL [facility] Mean Cell Hemoglobin 31.8 27.5 - 32.1 pg [facility] Mean Cell Hemoglobin Concentration 33.6 32.0 - 35.7 g/dL [facility] Platelet 112(L) 145 - 357 x10(3)/mc L [facility] RDW Standard Deviation 53.6(H) 36.0 - 45.0 fL [facility] RDW coefficient of variation 15.2(H) 11.4 - 13.8 % [facility] Mean Platelet Volume 10.4 7.6 - 12.9 fL [facility] NRBC% auto 0.0 % [facility] NRBC Absolute 0.000 0.000 - 0.000 x10(3)/ L [facility] Blood 07/28/2022 4:43 AM EDT 07/28/2022 4:51 AM EDT Narrative Resulting Agency Comment Spec In Lab Marco Dior MD HEMATOLOGY ORDERABLE S Performing Organization Address City/[facility]/ZIP Co de Phone Number [facility] [place] [place] [address] * (ABNORMAL) Basic Metabolic Panel (non-fasting) (07/28/2022 4:43 AM EDT) Glucose 75 65 - 199 mg/dL [facility] Comment:Diabetes: >=200 mg/d L plus symptoms Blood Urea Nitrogen 17 10 - 20 mg/dL [facility] Creatinine 1.03 0.80 - 1.50 mg/dL [facility] Sodium 139 135 - 145 mmol/L [facility] Potassium 3.7 3.5 - 5.0 mmol/L [facility] Comment: Please note: ??Patients with WBC >100,000 may have falsely elevated Potassium levels. ??For accurate Potassium quantification in these patients send serum separator tube (gold top) for subsequent determinations. ??Contact the Clinical Chemistry Laboratory if there are any questions. Chloride 104 98 - 107 mmol/L [facility] Carbon Dioxide 25 22 - 31 mmol/L [facility] Anion Gap 10 5 - 15 mmol/L [facility] Calcium 8.4(L) 8.5 - 10.5 mg/dL [facility] Est Glomerular Filtration Rate 86 >=60 mL/min/1. 73 m?? [facility] Comment: This patient's estimated GFR [...] In Lab Marco Dior MD CHEMISTRY ORDERABLES [facility] [place] [address] * (ABNORMAL) Differential, Automated (07/27/2022 6:00 PM EDT) Neutrophil % 75.8 % [facility] Neutrophil Absolute 6.99(H) 1.70 - 6.10 x10(3)/ L [facility] Lymph % 18.0 % [facility] Lymphocytes Abs 1.7 0.9 - 3.2 x10(3)/mc L [facility] Monocyte % 5.7 % [facility] Monocyte Abs 0.5 0.3 - 0.9 x10(3)/[facility] Eos % 0.0 % [facility] Eosinophils Abs 0.0 0.0 - 0.4 x10(3)/[facility] Basophil % 0.1 % [facility] Baso Absolute 0.0 0.0 - 0.1 x10(3)/[facility] Immature Gran % 0.40 % [facility] Comment: Immature granulocytes(IG's)percentage and absolute count will include metamyelocytes, myelocytes, and promyelocytes. Blood smears from CBCs yielding IG's will be scanned manually for concordance. If this scan disagrees with the automated IG or if promyelocytes are noted, a manual differential will be performed. Immature Gran Absolute 0.04 0.00 - 0.04 x10(3)/[facility] Blood 07/27/2022 6:00 PM EDT 07/27/2022 6:08 PM EDT Narrative Resulting Agency Comment Spec In Lab Earle Smith MD HEMATOLOGY ORDER TABITHA [facility] [place] [address] * (ABNORMAL) Hemogram (07/27/2022 6:00 PM EDT) White Blood Cell 9.2 4.0 - 9.5 x10(3)/[facility] Red Blood Cell 3.31(L) 4.58 - 5.54 x10(6)/[facility] Hemoglobin 10.4(L) 13.7 - 16.5 g/dL [facility] Hematocrit 30.8(L) 40.5 - 48.5 % [facility] Mean Cell Volume 93.1 82.9 - 93.1 fL [facility] Mean Cell Hemoglobin 31.4 27.5 - 32.1 pg [facility] Mean Cell Hemoglobin Concentration 33.8 32.0 - 35.7 g/dL [facility] Platelet 104(L) 145 - 357 x10(3)/mc L [facility] RDW Standard Deviation 51.3(H) 36.0 - 45.0 fL [facility] RDW coefficient of variation 15.1(H) 11.4 - 13.8 % [facility] Mean Platelet Volume 10.8 7.6 - 12.9 fL [facility] NRBC% auto 0.0 % [facility] NRBC Absolute 0.000 0.000 - 0.000 x10(3)/mc L [facility] Blood 07/27/2022 6:00 PM EDT 07/27/2022 6:08 PM EDT Narrative Resulting Agency Comment Spec In Lab Earle Smith MD HEMATOLOGY ORDER TABITHA [facility] [place] [address] * Basic Metabolic Panel (non-fasting) (07/27/2022 6:00 PM EDT) Glucose 92 65 - 199 mg/dL [facility] Comment:Diabetes: >=200 mg/d L plus symptoms Blood Urea Nitrogen 15 10 - 20 mg/dL [facility] Creatinine 1.08 0.80 - 1.50 mg/dL [facility] Sodium 138 135 - 145 mmol/L [facility] Potassium 3.8 3.5 - 5.0 mmol/L [facility] Comment: Please note: ??Patients with WBC >100,000 may have falsely elevated Potassium levels. ??For accurate Potassium quantification in these patients send serum separator tube (gold top) for subsequent determinations. ??Contact the Clinical Chemistry Laboratory if there are any questions. Chloride 104 98 - 107 mmol/L [facility] Carbon Dioxide 24 22 - 31 mmol/L [facility] Anion Gap 10 5 - 15 mmol/L [facility] Calcium 8.5 8.5 - 10.5 mg/dL [facility] Est Glomerular Filtration Rate 82 >=60 mL/min/1. 73 m?? [facility] Comment: This patient's estimated GFR [...] Dior MD CHEMISTRY ORDERABLES Performing Organization Address [facility] de Phone Number [facility] [place] [address] * Phosphorus (07/27/2022 6:00 PM EDT) Phosphorus 3.4 2.5 - 4.5 mg/dL [facility] Blood 07/27/2022 6:00 PM EDT 07/27/2022 6:08 PM EDT Narrative Resulting Agency Comment Spec In Lab Marco Dior MD CHEMISTRY ORDERABLES Performing Organization Address [facility] Co de Phone Number [facility] [place] [address] * Magnesium (07/27/2022 6:00 PM EDT) Magnesium 0.81 0.69 - 1.07 mmol/L [facility] Blood 07/27/2022 6:00 PM EDT 07/27/2022 6:08 PM EDT Narrative Resulting Agency Comment Spec In Lab Marco Dior MD CHEMISTRY ORDERABLES Performing Organization Address [facility]/State/ZIP [place] [address] * (ABNORMAL) Differential, Automated (07/27/2022 8:15 AM EDT) Neutrophil % 80.7 % [facility] Neutrophil Absolute 8.20(H) 1.70 - 6.10 x10(3)/mc L [facility] Lymph % 11.9 % [facility] Lymphocytes Abs 1.2 0.9 - 3.2 x10(3)/mc L [facility] Monocyte % 6.8 % [facility] Monocyte Abs 0.7 0.3 - 0.9 x10(3)/mc L [facility] Eos % 0.0 % [facility] Eosinophils Abs 0.0 0.0 - 0.4 x10(3)/ L [facility] Basophil % 0.1 % [facility] Baso Absolute 0.0 0.0 - 0.1 x10(3)/mc L [facility] Immature Gran % 0.50 % [facility] Comment: Immature granulocytes(IG's)percentage and absolute count will include metamyelocytes, myelocytes, and promyelocytes. Blood smears from CBCs yielding IG's will be scanned manually for concordance. If this scan disagrees with the automated IG or if promyelocytes are noted, a manual differential will be performed. Immature Gran Absolute 0.05(H) 0.00 - 0.04 x10(3)/ L [facility] Blood 07/27/2022 8:15 AM EDT 07/27/2022 8:27 AM EDT Narrative Resulting Agency Comment Spec In Lab Earle Smith MD HEMATOLOGY [place] [address] * (ABNORMAL) Hemogram (07/27/2022 8:15 AM EDT) White Blood Cell 10.2(H) 4.0 - 9.5 x10(3)/mc L [facility] Red Blood Cell 3.54(L) 4.58 - 5.54 x10(6)/mc L [facility] Hemoglobin 11.2(L) 13.7 - 16.5 g/dL [facility] Hematocrit 32.7(L) 40.5 - 48.5 % [facility] Mean Cell Volume 92.4 82.9 - 93.1 fL [facility] Mean Cell Hemoglobin 31.6 27.5 - 32.1 pg [facility] Mean Cell Hemoglobin Concentration 34.3 32.0 - 35.7 g/dL [facility] Platelet 96(L) 145 - 357 x10(3)/mc L [facility] RDW Standard Deviation 51.1(H) 36.0 - 45.0 fL [facility] RDW coefficient of variation 14.9(H) 11.4 - 13.8 % [facility] Mean Platelet Volume 10.7 7.6 - 12.9 fL [facility] NRBC% auto 0.0 % [facility] NRBC Absolute 0.000 0.000 - 0.000 x10(3)/mc L [facility] Blood 07/27/2022 8:15 AM EDT 07/27/2022 8:27 AM EDT Narrative Resulting Agency Comment Spec In Lab Earle Smith MD HEMATOLOGY ORDER TABITHA [facility] [place] [address] * Basic Metabolic Panel (non-fasting) (07/27/2022 8:15 AM EDT) Glucose 107 65 - 199 mg/dL [facility] Comment:Diabetes: >=200 mg/d L plus symptoms Blood Urea Nitrogen 11 10 - 20 mg/dL [facility] Creatinine 0.99 0.80 - 1.50 mg/dL [facility] Sodium 138 135 - 145 mmol/L [facility] Potassium 4.0 3.5 - 5.0 mmol/L [facility] Comment: Please note: ??Patients with WBC >100,000 may have falsely elevated Potassium levels. ??For accurate Potassium quantification in these patients send serum separator tube (gold top) for subsequent determinations. ??Contact the Clinical Chemistry Laboratory if there are any questions. Chloride 103 98 - 107 mmol/L [facility] Carbon Dioxide 25 22 - 31 mmol/L [facility] Anion Gap 10 5 - 15 mmol/L [facility] Calcium 8.8 8.5 - 10.5 mg/dL [facility] Est Glomerular Filtration Rate 91 >=60 mL/min/1. 73 m?? [facility] Comment: This patient's estimated GFR [...] Dior MD CHEMISTRY ORDERABLES Performing Organization Address City/[facility]/ZIP Co de Phone Number [facility] [place] [place] [address] * (ABNORMAL) Phosphorus (07/27/2022 8:15 AM EDT) Phosphorus 2.3(L) 2.5 - 4.5 mg/dL [facility] Blood 07/27/2022 8:15 AM EDT 07/27/2022 8:27 AM EDT Narrative Resulting Agency Comment Spec In Lab Marco Dior MD CHEMISTRY ORDERABLES Performing Organization Address City/[facility]/ZIP Co de Phone Number [facility] [place] [address] * Magnesium (07/27/2022 8:15 AM EDT) Magnesium 0.82 0.69 - 1.07 mmol/L [facility] Blood 07/27/2022 8:15 AM EDT 07/27/2022 8:27 AM EDT Narrative Resulting Agency Comment Spec In Lab Marco Dior MD CHEMISTRY ORDERABLES Performing Organization Address City/[facility]/ZIP [place] [address] * (ABNORMAL) Differential, Automated (07/27/2022 5:26 AM EDT) Neutrophil % 82.1 % [facility] Neutrophil Absolute 7.91(H) 1.70 - 6.10 x10(3)/mc L [facility] Lymph % 11.2 % [facility] Lymphocytes Abs 1.1 0.9 - 3.2 x10(3)/mc L [facility] Monocyte % 6.4 % [facility] Monocyte Abs 0.6 0.3 - 0.9 x10(3)/mc L [facility] Eos % 0.0 % [facility] Eosinophils Abs 0.0 0.0 - 0.4 x10(3)/mc L [facility] Basophil % 0.1 % [facility] Baso Absolute 0.0 0.0 - 0.1 x10(3)/mc L [facility] Immature Gran % 0.20 % [facility] Comment: Immature granulocytes(IG's)percentage and absolute count will include metamyelocytes, myelocytes, and promyelocytes. Blood smears from CBCs yielding IG's will be scanned manually for concordance. If this scan disagrees with the automated IG or if promyelocytes are noted, a manual differential will be performed. Immature Gran Absolute 0.02 0.00 - 0.04 x10(3)/mc L [facility] Blood 07/27/2022 5:26 AM EDT 07/27/2022 5:31 AM EDT Narrative Resulting Agency Comment Spec In Lab Edwin England MD HEMATOLOGY ORDERABLE S Performing Organization Address City/[facility]/ZIP Co de Phone Number [facility] [place] [address] * (ABNORMAL) Hemogram (07/27/2022 5:26 AM EDT) White Blood Cell 9.6(H) 4.0 - 9.5 x10(3)/mc L [facility] Red Blood Cell 3.36(L) 4.58 - 5.54 x10(6)/mc L [facility] Hemoglobin 10.6(L) 13.7 - 16.5 g/dL [facility] Hematocrit 31.1(L) 40.5 - 48.5 % [facility] Mean Cell Volume 92.6 82.9 - 93.1 fL [facility] Mean Cell Hemoglobin 31.5 27.5 - 32.1 pg [facility] Mean Cell Hemoglobin Concentration 34.1 32.0 - 35.7 g/dL [facility] Platelet 92(L) 145 - 357 x10(3)/mc L [facility] RDW Standard Deviation 50.7(H) 36.0 - 45.0 fL [facility] RDW coefficient of variation 15.2(H) 11.4 - 13.8 % [facility] Mean Platelet Volume 10.3 7.6 - 12.9 fL [facility] NRBC% auto 0.0 % [facility] NRBC Absolute 0.000 0.000 - 0.000 x10(3)/ L [facility] Blood 07/27/2022 5:26 AM EDT 07/27/2022 5:31 AM EDT Narrative Resulting Agency Comment Spec In Lab Edwin England MD HEMATOLOGY ORDERABLE S Performing Organization Address City/[facility]/ZIP Co de Phone Number [facility] [place] [address] * (ABNORMAL) CK (07/27/2022 5:26 AM EDT) Creatine Kinase 1,164(H) 0 - 200 unit/L [facility] Blood 07/27/2022 5:26 AM EDT 07/27/2022 5:31 AM EDT Narrative Resulting Agency Comment Spec In Lab Marco Dior MD CHEMISTRY ORDERABLES Performing Organization Address City/[facility]/ZIP Co de Phone Number [facility] [place] [address] * (ABNORMAL) Fibrinogen (07/27/2022 5:26 AM EDT) Fibrinogen 575(H) 200 - 393 mg/dL [facility] Comment: A fibrinogen level >100 mg/dL is adequate for hemostasis in most patients without underlying bleeding disorders. Blood 07/27/2022 5:26 AM EDT 07/27/2022 5:31 AM EDT Narrative Resulting Agency Comment Spec In Lab Marco Dior MD HEMATOLOGY ORDERABLE S Performing Organization Address [facility] Co de Phone Number [facility] [place] [address] * (ABNORMAL) APTT (07/27/2022 5:26 AM EDT) Partial Thromboplastin Time 38(H) 25 - 37 sec [facility] Comment: The PTT is NOT appropriate for heparin monitoring. Use the Anti-Xa level for heparin monitoring (HEP UFH) or LMWH monitoring (HEP LMW). A PTT less than 37 seconds generally indicates adequate hemostasis. Blood 07/27/2022 5:26 AM EDT 07/27/2022 5:31 AM EDT Narrative Resulting Agency Comment Spec In Lab Marco Dior MD HEMATOLOGY ORDERABLE S Performing Organization Address [facility] Co de Phone Number [facility] [place] [address] * (ABNORMAL) Comprehensive metabolic panel (non-fasting) (07/27/2022 5:26 AM EDT) Glucose 111 65 - 199 mg/dL [facility] Comment:Diabetes: >=200 mg/d L plus symptoms Blood Urea Nitrogen 12 10 - 20 mg/dL [facility] Creatinine 1.03 0.80 - 1.50 mg/dL [facility] Sodium 139 135 - 145 mmol/L [facility] Potassium 4.3 3.5 - 5.0 mmol/L [facility] Comment: Please note: ??Patients with WBC >100,000 may have falsely elevated Potassium levels. ??For accurate Potassium quantification in these patients send serum separator tube (gold top) for subsequent determinations. ??Contact the Clinical Chemistry Laboratory if there are any questions. Chloride 105 98 - 107 mmol/L [facility] Carbon Dioxide 25 22 - 31 mmol/L [facility] Anion Gap 9 5 - 15 mmol/L [facility] Calcium 8.5 8.5 - 10.5 mg/dL [facility] Protein, Total 5.7(L) 6.1 - 8.0 g/dL [facility] Albumin 3.1(L) 3.2 - 5.2 g/dL [facility] Aspartate Aminotransferase 44(H) 0 - 39 unit/L [facility] Alanine Aminotransferase 20 0 - 55 unit/L [facility] Alkaline Phosphatase 47 40 - 130 unit/L [facility] Bilirubin, Total 0.3 0.2 - 1.3 mg/dL [facility] Est Glomerular Filtration Rate 86 >=60 mL/min/1. 73 m?? [facility] Comment: This patient's estimated GFR [...] In Lab Marco Dior MD CHEMISTRY ORDERABLES [facility] [place] [place] [address] * (ABNORMAL) Differential, Automated (07/27/2022 12:37 AM EDT) Neutrophil % 84.3 % [facility] Neutrophil Absolute 8.52(H) 1.70 - 6.10 x10(3)/mc L [facility] Lymph % 9.1 % [facility] Lymphocytes Abs 0.9 0.9 - 3.2 x10(3)/mc L [facility] Monocyte % 6.2 % [facility] Monocyte Abs 0.6 0.3 - 0.9 x10(3)/mc L [facility] Eos % 0.0 % [facility] Eosinophils Abs 0.0 0.0 - 0.4 x10(3)/ L [facility] Basophil % 0.1 % [facility] Baso Absolute 0.0 0.0 - 0.1 x10(3)/mc L [facility] Immature Gran % 0.30 % [facility] Comment: Immature granulocytes(IG's)percentage and absolute count will include metamyelocytes, myelocytes, and promyelocytes. Blood smears from CBCs yielding IG's will be scanned manually for concordance. If this scan disagrees with the automated IG or if promyelocytes are noted, a manual differential will be performed. Immature Gran Absolute 0.03 0.00 - 0.04 x10(3)/mc L [facility] Blood 07/27/2022 12:3 7 AM EDT 07/27/2022 12:51 AM EDT Narrative Resulting Agency Comment Spec In Lab Edwin England MD HEMATOLOGY ORDERABLE S Performing Organization Address City/State/[facility] Co de Phone Number [facility] [place] [address] * (ABNORMAL) Hemogram (07/27/2022 12:37 AM EDT) White Blood Cell 10.1(H) 4.0 - 9.5 x10(3)/mc L [facility] Red Blood Cell 3.42(L) 4.58 - 5.54 x10(6)/mc L [facility] Hemoglobin 10.7(L) 13.7 - 16.5 g/dL [facility] Hematocrit 31.6(L) 40.5 - 48.5 % [facility] Mean Cell Volume 92.4 82.9 - 93.1 fL [facility] Mean Cell Hemoglobin 31.3 27.5 - 32.1 pg [facility] Mean Cell Hemoglobin Concentration 33.9 32.0 - 35.7 g/dL [facility] Platelet 99(L) 145 - 357 x10(3)/mc L [facility] RDW Standard Deviation 50.4(H) 36.0 - 45.0 fL [facility] RDW coefficient of variation 15.0(H) 11.4 - 13.8 % [facility] Mean Platelet Volume 10.2 7.6 - 12.9 fL [facility] NRBC% auto 0.0 % [facility] NRBC Absolute 0.000 0.000 - 0.000 x10(3)/mc L [facility] Blood 07/27/2022 12:3 7 AM EDT 07/27/2022 12:51 AM EDT Narrative Resulting Agency Comment Spec In Lab Edwin England MD HEMATOLOGY ORDERABLE S Performing Organization Address [facility] Co de Phone Number [facility] [place] [address] * (ABNORMAL) Magnesium (07/27/2022 12:37 AM EDT) Magnesium 0.67(L) 0.69 - 1.07 mmol/L [facility] Blood 07/27/2022 12:3 7 AM EDT 07/27/2022 12:51 AM EDT Narrative Resulting Agency Comment Spec In Lab Marco Dior MD CHEMISTRY ORDERABLES Performing Organization Address [facility] Co de Phone Number [facility] [place] [address] * Phosphorus (07/27/2022 12:37 AM EDT) Phosphorus 2.8 2.5 - 4.5 mg/dL [facility] Blood 07/27/2022 12:3 7 AM EDT 07/27/2022 12:51 AM EDT Narrative Resulting Agency Comment Spec In Lab Marco Dior MD CHEMISTRY ORDERABLES Performing Organization Address [facility] Co de Phone Number [facility] [place] [address] * (ABNORMAL) CK (07/27/2022 12:37 AM EDT) Creatine Kinase 1,266(H) 0 - 200 unit/L [facility] Blood 07/27/2022 12:3 7 AM EDT 07/27/2022 12:51 AM EDT Narrative Resulting Agency Comment Spec In Lab Marco Dior MD CHEMISTRY ORDERABLES Performing Organization Address [facility] de Phone Number [facility] [place] [place] [address] * (ABNORMAL) Fibrinogen (07/27/2022 12:37 AM EDT) Fibrinogen 533(H) 200 - 393 mg/dL [facility] Comment: A fibrinogen level >100 mg/dL is adequate for hemostasis in most patients without underlying bleeding disorders. Blood 07/27/2022 12:3 7 AM EDT 07/27/2022 12:51 AM EDT Narrative Resulting Agency Comment Spec In Lab Marco Dior MD HEMATOLOGY ORDERABLE S Performing Organization Address [facility] de Phone Number [facility] [place] [place] [address] * APTT (07/27/2022 12:37 AM EDT) Partial Thromboplastin Time 34 25 - 37 sec [facility] Comment: The PTT is NOT appropriate for heparin monitoring. Use the Anti-Xa level for heparin monitoring (HEP UFH) or LMWH monitoring (HEP LMW). A PTT less than 37 seconds generally indicates adequate hemostasis. Blood 07/27/2022 12:3 7 AM EDT 07/27/2022 12:51 AM EDT Narrative Resulting Agency Comment Spec In Lab Marco Dior MD HEMATOLOGY ORDERABLE S Performing Organization Address [facility] Co de Phone Number [facility] [place] [address] * (ABNORMAL) Comprehensive metabolic panel (non-fasting) (07/27/2022 12:37 AM EDT) Glucose 112 65 - 199 mg/dL [facility] Comment:Diabetes: >=200 mg/d L plus symptoms Blood Urea Nitrogen 12 10 - 20 mg/dL [facility] Creatinine 1.12 0.80 - 1.50 mg/dL [facility] Sodium 138 135 - 145 mmol/L [facility] Potassium 3.8 3.5 - 5.0 mmol/L [facility] Comment: Please note: ??Patients with WBC >100,000 may have falsely elevated Potassium levels. ??For accurate Potassium quantification in these patients send serum separator tube (gold top) for subsequent determinations. ??Contact the Clinical Chemistry Laboratory if there are any questions. Chloride 103 98 - 107 mmol/L [facility] Carbon Dioxide 24 22 - 31 mmol/L [facility] Anion Gap 11 5 - 15 mmol/L [facility] Calcium 8.5 8.5 - 10.5 mg/dL [facility] Protein, Total 5.6(L) 6.1 - 8.0 g/dL [facility] Albumin 3.1(L) 3.2 - 5.2 g/dL [facility] Aspartate Aminotransferase 47(H) 0 - 39 unit/L [facility] Alanine Aminotransferase 22 0 - 55 unit/L [facility] Alkaline Phosphatase 49 40 - 130 unit/L [facility] Bilirubin, Total 0.3 0.2 - 1.3 mg/dL [facility] Est Glomerular Filtration Rate 78 >=60 mL/min/1. 73 m?? [facility] Comment: This patient's estimated GFR [...] Dior MD CHEMISTRY ORDERABLES Performing Organization Address City/[facility]/ZIP [place] [address] * Gold Tube HOLD (07/26/2022 5:35 PM EDT) Gold Hold Sample in lab. [facility] Blood Venous Draw / Unknown 07/26/2022 5:35 PM EDT 07/26/2022 5:43 PM EDT Edwin England MD CHEMISTRY ORDERABLES Performing Organization Address [facility] [place] [address] * (ABNORMAL) Differential, Automated (07/26/2022 5:35 PM EDT) Neutrophil % 89.3 % [facility] Neutrophil Absolute 8.32(H) 1.70 - 6.10 x10(3)/mc L [facility] Lymph % 6.2 % [facility] Lymphocytes Abs 0.6(L) 0.9 - 3.2 x10(3)/mc L [facility] Monocyte % 4.0 % [facility] Monocyte Abs 0.4 0.3 - 0.9 x10(3)/mc L [facility] Eos % 0.0 % [facility] Eosinophils Abs 0.0 0.0 - 0.4 x10(3)/mc L [facility] Basophil % 0.1 % [facility] Baso Absolute 0.0 0.0 - 0.1 x10(3)/mc L [facility] Immature Gran % 0.40 % [facility] Comment: Immature granulocytes(IG's)percentage and absolute count will include metamyelocytes, myelocytes, and promyelocytes. Blood smears from CBCs yielding IG's will be scanned manually for concordance. If this scan disagrees with the automated IG or if promyelocytes are noted, a manual differential will be performed. Immature Gran Absolute 0.04 0.00 - 0.04 x10(3)/mc L [facility] Blood 07/26/2022 5:35 PM EDT 07/26/2022 5:42 PM EDT Narrative Resulting Agency Comment Spec In Lab Edwin England MD HEMATOLOGY ORDERABLE S Performing Organization Address City/[facility]/ZIP Co de Phone Number [facility] [place] [address] * (ABNORMAL) Hemogram (07/26/2022 5:35 PM EDT) White Blood Cell 9.3 4.0 - 9.5 x10(3)/mc L [facility] Red Blood Cell 3.53(L) 4.58 - 5.54 x10(6)/ L [facility] Hemoglobin 11.0(L) 13.7 - 16.5 g/dL [facility] Hematocrit 33.0(L) 40.5 - 48.5 % [facility] Mean Cell Volume 93.5(H) 82.9 - 93.1 fL [facility] Mean Cell Hemoglobin 31.2 27.5 - 32.1 pg [facility] Mean Cell Hemoglobin Concentration 33.3 32.0 - 35.7 g/dL [facility] Platelet 105(L) 145 - 357 x10(3)/mc L [facility] RDW Standard Deviation 51.6(H) 36.0 - 45.0 fL [facility] RDW coefficient of variation 14.9(H) 11.4 - 13.8 % [facility] Mean Platelet Volume 10.1 7.6 - 12.9 fL [facility] NRBC% auto 0.0 % [facility] NRBC Absolute 0.000 0.000 - 0.000 x10(3)/mc L [facility] Blood 07/26/2022 5:35 PM EDT 07/26/2022 5:42 PM EDT Narrative Resulting Agency Comment Spec In Lab Edwin England MD HEMATOLOGY ORDERABLE S Performing Organization Address City/[facility]/ZIP Co de Phone Number [facility] [place] [address] * (ABNORMAL) CK (07/26/2022 5:35 PM EDT) Creatine Kinase 1,303(H) 0 - 200 unit/L [facility] Blood 07/26/2022 5:35 PM EDT 07/26/2022 5:42 PM EDT Narrative Resulting Agency Comment Spec In Lab Marco Dior MD CHEMISTRY ORDERABLES Performing Organization Address [facility] de Phone Number [facility] [place] [place] [address] * (ABNORMAL) Fibrinogen (07/26/2022 5:35 PM EDT) Fibrinogen 486(H) 200 - 393 mg/dL [facility] Comment: A fibrinogen level >100 mg/dL is adequate for hemostasis in most patients without underlying bleeding disorders. Blood 07/26/2022 5:35 PM EDT 07/26/2022 5:42 PM EDT Narrative Resulting Agency Comment Spec In Lab Marco Dior MD HEMATOLOGY ORDERABLE S Performing Organization Address [facility] de Phone Number [facility] [place] [address] * APTT (07/26/2022 5:35 PM EDT) Partial Thromboplastin Time 35 25 - 37 sec [facility] Comment: The PTT is NOT appropriate for heparin monitoring. Use the Anti-Xa level for heparin monitoring (HEP UFH) or LMWH monitoring (HEP LMW). A PTT less than 37 seconds generally indicates adequate hemostasis. Blood 07/26/2022 5:35 PM EDT 07/26/2022 5:42 PM EDT Narrative Resulting Agency Comment Spec In Lab Marco Dior MD HEMATOLOGY ORDERABLE S Performing Organization Address [facility] Co de Phone Number [facility] [place] [address] * (ABNORMAL) Comprehensive metabolic panel (non-fasting) (07/26/2022 5:35 PM EDT) Glucose 130 65 - 199 mg/dL [facility] Comment:Diabetes: >=200 mg/d L plus symptoms Blood Urea Nitrogen 11 10 - 20 mg/dL [facility] Creatinine 1.10 0.80 - 1.50 mg/dL [facility] Sodium 138 135 - 145 mmol/L [facility] Potassium 4.0 3.5 - 5.0 mmol/L [facility] Comment: Please note: ??Patients with WBC >100,000 may have falsely elevated Potassium levels. ??For accurate Potassium quantification in these patients send serum separator tube (gold top) for subsequent determinations. ??Contact the Clinical Chemistry Laboratory if there are any questions. Chloride 104 98 - 107 mmol/L [facility] Carbon Dioxide 24 22 - 31 mmol/L [facility] Anion Gap 10 5 - 15 mmol/L [facility] Calcium 8.4(L) 8.5 - 10.5 mg/dL [facility] Protein, Total 5.5(L) 6.1 - 8.0 g/dL [facility] Albumin 3.1(L) 3.2 - 5.2 g/dL [facility] Aspartate Aminotransferase 45(H) 0 - 39 unit/L [facility] Alanine Aminotransferase 23 0 - 55 unit/L [facility] Alkaline Phosphatase 47 40 - 130 unit/L [facility] Bilirubin, Total 0.3 0.2 - 1.3 mg/dL [facility] Est Glomerular Filtration Rate 80 >=60 mL/min/1. 73 m?? [facility] Comment: This patient's estimated GFR [...] Dior MD CHEMISTRY ORDERABLES Performing Organization Address City/[facility]/ZIP [place] [address] * Gold Tube HOLD (07/26/2022 11:55 AM EDT) Gold Hold Sample in lab. [facility] Blood Venous Draw / Unknown 07/26/2022 11:55 AM EDT 07/26/2022 12:12 PM EDT Edwin Enlgand MD CHEMISTRY ORDERABLES Performing Organization Address [facility] [place] [address] * (ABNORMAL) Differential, Automated (07/26/2022 11:55 AM EDT) Neutrophil % 87.1 % [facility] Neutrophil Absolute 7.48(H) 1.70 - 6.10 x10(3)/mc L [facility] Lymph % 7.4 % [facility] Lymphocytes Abs 0.6(L) 0.9 - 3.2 x10(3)/mc L [facility] Monocyte % 5.2 % [facility] Monocyte Abs 0.4 0.3 - 0.9 x10(3)/mc L [facility] Eos % 0.0 % [facility] Eosinophils Abs 0.0 0.0 - 0.4 x10(3)/mc L [facility] Basophil % 0.1 % [facility] Baso Absolute 0.0 0.0 - 0.1 x10(3)/mc L [facility] Immature Gran % 0.20 % [facility] Comment: Immature granulocytes(IG's)percentage and absolute count will include metamyelocytes, myelocytes, and promyelocytes. Blood smears from CBCs yielding IG's will be scanned manually for concordance. If this scan disagrees with the automated IG or if promyelocytes are noted, a manual differential will be performed. Immature Gran Absolute 0.02 0.00 - 0.04 x10(3)/mc L [facility] Blood 07/26/2022 11:5 5 AM EDT 07/26/2022 12:11 PM EDT Narrative Resulting Agency Comment Spec In Lab Edwin England MD HEMATOLOGY ORDERABLE S Performing Organization Address City/[facility]/ZIP Co de Phone Number [facility] [place] [address] * (ABNORMAL) Hemogram (07/26/2022 11:55 AM EDT) White Blood Cell 8.6 4.0 - 9.5 x10(3)/mc L [facility] Red Blood Cell 3.58(L) 4.58 - 5.54 x10(6)/mc L [facility] Hemoglobin 11.1(L) 13.7 - 16.5 g/dL [facility] Hematocrit 33.1(L) 40.5 - 48.5 % [facility] Mean Cell Volume 92.5 82.9 - 93.1 fL [facility] Mean Cell Hemoglobin 31.0 27.5 - 32.1 pg [facility] Mean Cell Hemoglobin Concentration 33.5 32.0 - 35.7 g/dL [facility] Platelet 105(L) 145 - 357 x10(3)/mc L [facility] RDW Standard Deviation 49.8(H) 36.0 - 45.0 fL [facility] RDW coefficient of variation 14.8(H) 11.4 - 13.8 % [facility] Mean Platelet Volume 10.4 7.6 - 12.9 fL [facility] NRBC% auto 0.0 % [facility] NRBC Absolute 0.000 0.000 - 0.000 x10(3)/mc L [facility] Blood 07/26/2022 11:5 5 AM EDT 07/26/2022 12:11 PM EDT Narrative Resulting Agency Comment Spec In Lab Edwin England MD HEMATOLOGY ORDERABLE S Performing Organization Address City/[facility]/ZIP Co de Phone Number [facility] [place] [address] * (ABNORMAL) CK (07/26/2022 11:55 AM EDT) Creatine Kinase 1,090(H) 0 - 200 unit/L [facility] Blood 07/26/2022 11:5 5 AM EDT 07/26/2022 12:11 PM EDT Narrative Resulting Agency Comment Spec In Lab Marco Dior MD CHEMISTRY ORDERABLES Performing Organization Address City/[facility]/ZIP Co de Phone Number [facility] [place] [place] [address] * (ABNORMAL) Fibrinogen (07/26/2022 11:55 AM EDT) Fibrinogen 421(H) 200 - 393 mg/dL [facility] Comment: A fibrinogen level >100 mg/dL is adequate for hemostasis in most patients without underlying bleeding disorders. Blood 07/26/2022 11:5 5 AM EDT 07/26/2022 12:11 PM EDT Narrative Resulting Agency Comment Spec In Lab Marco Dior MD HEMATOLOGY ORDERABLE S Performing Organization Address [facility] Co de Phone Number [facility] [place] [place] [address] * APTT (07/26/2022 11:55 AM EDT) Partial Thromboplastin Time 34 25 - 37 sec [facility] Comment: The PTT is NOT appropriate for heparin monitoring. Use the Anti-Xa level for heparin monitoring (HEP UFH) or LMWH monitoring (HEP LMW). A PTT less than 37 seconds generally indicates adequate hemostasis. Blood 07/26/2022 11:5 5 AM EDT 07/26/2022 12:11 PM EDT Narrative Resulting Agency Comment Spec In Lab Marco Dior MD HEMATOLOGY ORDERABLE S Performing Organization Address City/[facility]/ZIP Co de Phone Number [facility] [place] [address] * (ABNORMAL) Comprehensive metabolic panel (non-fasting) (07/26/2022 11:55 AM EDT) Glucose 132 65 - 199 mg/dL [facility] Comment:Diabetes: >=200 mg/d L plus symptoms Blood Urea Nitrogen 11 10 - 20 mg/dL [facility] Creatinine 0.98 0.80 - 1.50 mg/dL [facility] Sodium 136 135 - 145 mmol/L [facility] Potassium 4.2 3.5 - 5.0 mmol/L [facility] Comment: Please note: ??Patients with WBC >100,000 may have falsely elevated Potassium levels. ??For accurate Potassium quantification in these patients send serum separator tube (gold top) for subsequent determinations. ??Contact the Clinical Chemistry Laboratory if there are any questions. Chloride 103 98 - 107 mmol/L [facility] Carbon Dioxide 23 22 - 31 mmol/L [facility] Anion Gap 10 5 - 15 mmol/L [facility] Calcium 7.9(L) 8.5 - 10.5 mg/dL [facility] Protein, Total 5.2(L) 6.1 - 8.0 g/dL [facility] Albumin 3.1(L) 3.2 - 5.2 g/dL [facility] Aspartate Aminotransferase Not Perf 0 - 39 [facility] Comment: Unable to quantitate due to sample hemolysis. ??Sample redraw suggested. Called by: SULY, Read back by: ??Miladys Rollinsnatalya, Date/Time:07/26/22 13:56. Alanine Aminotransferase 22 0 - 55 unit/L [facility] Alkaline Phosphatase 47 40 - 130 unit/L [facility] Bilirubin, Total 0.4 0.2 - 1.3 mg/dL [facility] Est Glomerular Filtration Rate 92 >=60 mL/min/1. 73 m?? [facility] Comment: This patient's estimated GFR [...] Dior MD CHEMISTRY ORDERABLES Performing Organization Address City/[facility] Co de Phone Number [facility] [place] [place] [address] * (ABNORMAL) Differential, Automated (07/26/2022 10:30 AM EDT) Neutrophil % 80.5 % [facility] Neutrophil Absolute 7.98(H) 1.70 - 6.10 x10(3)/mc L [facility] Lymph % 14.0 % [facility] Lymphocytes Abs 1.4 0.9 - 3.2 x10(3)/mc L [facility] Monocyte % 4.9 % [facility] Monocyte Abs 0.5 0.3 - 0.9 x10(3)/mc L [facility] Eos % 0.1 % [facility] Eosinophils Abs 0.0 0.0 - 0.4 x10(3)/mc L [facility] Basophil % 0.1 % [facility] Baso Absolute 0.0 0.0 - 0.1 x10(3)/mc L [facility] Immature Gran % 0.40 % [facility] Comment: Immature granulocytes(IG's)percentage and absolute count will include metamyelocytes, myelocytes, and promyelocytes. Blood smears from CBCs yielding IG's will be scanned manually for concordance. If this scan disagrees with the automated IG or if promyelocytes are noted, a manual differential will be performed. Immature Gran Absolute 0.04 0.00 - 0.04 x10(3)/mc L [facility] Blood 07/26/2022 10:3 0 AM EDT 07/26/2022 10:46 AM EDT Narrative Resulting Agency Comment Spec In Lab Edwin England MD HEMATOLOGY ORDERABLE S [facility] [place] [address] * (ABNORMAL) Hemogram (07/26/2022 10:30 AM EDT) White Blood Cell 9.9(H) 4.0 - 9.5 x10(3)/mc L [facility] Red Blood Cell 3.91(L) 4.58 - 5.54 x10(6)/mc L [facility] Hemoglobin 12.2(L) 13.7 - 16.5 g/dL [facility] Hematocrit 36.3(L) 40.5 - 48.5 % [facility] Mean Cell Volume 92.8 82.9 - 93.1 fL [facility] Mean Cell Hemoglobin 31.2 27.5 - 32.1 pg [facility] Mean Cell Hemoglobin Concentration 33.6 32.0 - 35.7 g/dL [facility] Platelet 108(L) 145 - 357 x10(3)/mc L [facility] RDW Standard Deviation 50.6(H) 36.0 - 45.0 fL [facility] RDW coefficient of variation 14.8(H) 11.4 - 13.8 % [facility] Mean Platelet Volume 10.5 7.6 - 12.9 fL [facility] NRBC% auto 0.0 % [facility] NRBC Absolute 0.000 0.000 - 0.000 x10(3)/mc L [facility] Blood 07/26/2022 10:3 0 AM EDT 07/26/2022 10:46 AM EDT Narrative Resulting Agency Comment Spec In Lab Edwin England MD HEMATOLOGY ORDERABLE S [facility] [place] [address] * (ABNORMAL) Fibrinogen (07/26/2022 10:30 AM EDT) Fibrinogen 438(H) 200 - 393 mg/dL [facility] Comment: A fibrinogen level >100 mg/dL is adequate for hemostasis in most patients without underlying bleeding disorders. Blood 07/26/2022 10:3 0 AM EDT 07/26/2022 10:46 AM EDT Narrative Resulting Agency Comment Spec In Lab Marco Dior MD HEMATOLOGY ORDERABLE S [facility] [place] [address] * APTT (07/26/2022 10:30 AM EDT) Partial Thromboplastin Time 35 25 - 37 sec [facility] Comment: The PTT is NOT appropriate for heparin monitoring. Use the Anti-Xa level for heparin monitoring (HEP UFH) or LMWH monitoring (HEP LMW). A PTT less than 37 seconds generally indicates adequate hemostasis. Blood 07/26/2022 10:3 0 AM EDT 07/26/2022 10:46 AM EDT Narrative Resulting Agency Comment Spec In Lab Marco Dior MD HEMATOLOGY ORDERABLE S Performing Organization Address [facility] Co de Phone Number [facility] [place] [address] * (ABNORMAL) Prothrombin Time (07/26/2022 10:30 AM EDT) Prothrombin Time 13.3(H) 9.4 - 12.5 sec [facility] International Normalization Ratio 1.2 [facility] Comment: An INR <2.0 indicates adequate [...] MD HEMATOLOGY ORDERABLE S Performing Organization Address City/[facility]/ZIP Co de Phone Number [facility] [place] [address] * (ABNORMAL) CK (07/26/2022 10:30 AM EDT) Creatine Kinase 1,139(H) 0 - 200 unit/L [facility] Blood 07/26/2022 10:3 0 AM EDT 07/26/2022 10:46 AM EDT Narrative Resulting Agency Comment Spec In Lab Marco Dior MD CHEMISTRY ORDERABLES [facility] [place] [address] * (ABNORMAL) Comprehensive metabolic panel (non-fasting) (07/26/2022 10:30 AM EDT) Glucose 132 65 - 199 mg/dL [facility] Comment:Diabetes: >=200 mg/d L plus symptoms Blood Urea Nitrogen 11 10 - 20 mg/dL [facility] Creatinine 0.96 0.80 - 1.50 mg/dL [facility] Sodium 136 135 - 145 mmol/L [facility] Potassium 4.0 3.5 - 5.0 mmol/L [facility] Comment: Please note: ??Patients with WBC >100,000 may have falsely elevated Potassium levels. ??For accurate Potassium quantification in these patients send serum separator tube (gold top) for subsequent determinations. ??Contact the Clinical Chemistry Laboratory if there are any questions. Chloride 104 98 - 107 mmol/L [facility] Carbon Dioxide 22 22 - 31 mmol/L [facility] Anion Gap 10 5 - 15 mmol/L [facility] Calcium 8.2(L) 8.5 - 10.5 mg/dL [facility] Protein, Total 5.6(L) 6.1 - 8.0 g/dL [facility] Albumin 3.3 3.2 - 5.2 g/dL [facility] Aspartate Aminotransferase Not Perf 0 - 39 [facility] Comment: Unable to quantitate due to sample hemolysis. ??Sample redraw suggested. Called by: SULY, Read back by: Miladys King, Date/Time:07/26/22 11:28. Alanine Aminotransferase 25 0 - 55 unit/L [facility] Alkaline Phosphatase 53 40 - 130 unit/L [facility] Bilirubin, Total 0.5 0.2 - 1.3 mg/dL [facility] Est Glomerular Filtration Rate 94 >=60 mL/min/1. 73 m?? [facility] Comment: This patient's estimated GFR [...] Dior MD CHEMISTRY ORDERABLES Performing Organization Address City/State/[facility] Co de Phone Number [facility] [place] [address] * (ABNORMAL) BLOOD GAS 2 ARTERIAL (07/26/2022 10:29 AM EDT) pH, Arterial 7.35 7.35 - 7.45 [facility] PCO2, Arterial 43 35 - 45 mmHg [facility] PO2, Arterial 64(L) 85 - 104 mmHg [facility] Bicarbonate, Arterial 23.4 20.0 - 26.0 mmol/L [facility] Base Excess, Arterial -2.3 -3.0 - 3.0 mmol/L [facility] Hgb Blood Gas 13.3(L) 13.7 - 16.5 g/dL [facility] Oxyhemoglobin, Arterial 90.9(L) 94.0 - 97.0 % [facility] Carboxyhemoglob in, Arterial 0.2 % [facility] Comment: Nonsmokers: 0.5-1.5% COHB Smokers: Variable, but usually less than 10% Toxic: 20-30% COHB Lethal: Greater than 60% COHB Methemoglobin, Arterial 0.5 <=1.5 % [facility] Na Whole Blood 135 135 - 145 mmol/L [facility] K Whole Blood 3.8 3.5 - 5.0 mmol/L [facility] Comment: Please note: Patients with WBC >100,000 may have falsely elevated Potassium levels. Contact the Clinical Chemistry Laboratory if there are any questions. ICa Whole Blood 1.12(L) 1.15 - 1.33 mmol/L [facility] Comment: Note: ??Total bilirubin higher than 20 mg/dL may lead to falsely low ionized calcium. CL Whole Blood 104 98 - 107 mmol/L [facility] Gluc Whole Bld 127 65 - 199 mg/dL [facility] Comment:Diabetes: >=200 mg/d L plus symptoms. Lactate WB 1.8 0.5 - 2.2 mmol/L [facility] Flow Art 6.0 LPM [facility] Blood 07/26/2022 10:2 9 AM EDT 07/26/2022 10:29 AM EDT Marco Dior MD POINT OF CARE TEST O RDERABLES [facility] [place] [address] * (ABNORMAL) BLOOD GAS 2 ARTERIAL (07/26/2022 8:12 AM EDT) pH, Arterial 7.38 7.35 - 7.45 [facility] PCO2, Arterial 37 35 - 45 mmHg [facility] PO2, Arterial 100 85 - 104 mmHg [facility] Bicarbonate, Arterial 21.5 20.0 - 26.0 mmol/L [facility] Base Excess, Arterial -3.6(L) -3.0 - 3.0 mmol/L [facility] Hgb Blood Gas 12.2(L) 13.7 - 16.5 g/dL [facility] Oxyhemoglobin, Arterial 96.3 94.0 - 97.0 % [facility] Carboxyhemoglob in, Arterial 1.3 % [facility] Comment: Nonsmokers: 0.5-1.5% COHB Smokers: Variable, but usually less than 10% Toxic: 20-30% COHB Lethal: Greater than 60% COHB Methemoglobin, Arterial 0.3 <=1.5 % [facility] Na Whole Blood 134(L) 135 - 145 mmol/L [facility] K Whole Blood 3.8 3.5 - 5.0 mmol/L [facility] Comment: Please note: Patients with WBC >100,000 may have falsely elevated Potassium levels. Contact the Clinical Chemistry Laboratory if there are any questions. ICa Whole Blood 1.10(L) 1.15 - 1.33 mmol/L [facility] Comment: Note: ??Total bilirubin higher than 20 mg/dL may lead to falsely low ionized calcium. CL Whole Blood 102 98 - 107 mmol/L [facility] Gluc Whole Bld 109 65 - 199 mg/dL [facility] Comment:Diabetes: >=200 mg/d L plus symptoms. Lactate WB 0.8 0.5 - 2.2 mmol/L [facility] Blood 07/26/2022 8:12 AM EDT 07/26/2022 8:12 AM EDT Marco Dior MD POINT OF CARE TEST O RDERABLES [facility] [place] [id number] * CT Angiogram Aortic Lower Extremity Runoff [...] who have questions please contact the health career coach that requested your imaging first. ? Electronically signed by: Durga Lundberg MD, [facility] ([phone]), at 07/26/2022 7:58 AM Narrative 07/26/2022 7:58 [...] graft the infrarenal aorta to the bilateral [employer] bifurcations; LEFT limb of the graft from [...] patients who have questions please contactthe health career coach that requested your imaging first. Electronically signed by: Durga Lundberg MD, [facility]([phone]), at 07/26/2022 7:58 AM Marco Dior MD IMG CT ORDERABLES * (ABNORMAL) BLOOD GAS 2 ARTERIAL (07/26/2022 4:10 AM EDT) pH, Arterial 7.44 7.35 - 7.45 [facility] PCO2, Arterial 38 35 - 45 mmHg [facility] PO2, Arterial 65(L) 85 - 104 mmHg [facility] Bicarbonate, Arterial 25.1 20.0 - 26.0 mmol/L [facility] Base Excess, Arterial 0.9 -3.0 - 3.0 mmol/L [facility] Hgb Blood Gas 13.4(L) 13.7 - 16.5 g/dL [facility] Oxyhemoglobin, Arterial 92.4(L) 94.0 - 97.0 % [facility] Carboxyhemoglob in, Arterial 0.1 % [facility] Comment: Nonsmokers: 0.5-1.5% COHB Smokers: Variable, but usually less than 10% Toxic: 20-30% COHB Lethal: Greater than 60% COHB Methemoglobin, Arterial 0.6 <=1.5 % [facility] Na Whole Blood 135 135 - 145 mmol/L [facility] K Whole Blood 3.7 3.5 - 5.0 mmol/L [facility] Comment: Please note: Patients with WBC >100,000 may have falsely elevated Potassium levels. Contact the Clinical Chemistry Laboratory if there are any questions. ICa Whole Blood 1.13(L) 1.15 - 1.33 mmol/L [facility] Comment: Note: ??Total bilirubin higher than 20 mg/dL may lead to falsely low ionized calcium. CL Whole Blood 104 98 - 107 mmol/L [facility] Gluc Whole Bld 130 65 - 199 mg/dL [facility] Comment:Diabetes: >=200 mg/d L plus symptoms. Lactate WB 1.3 0.5 - 2.2 mmol/L [facility] Flow Art 6.0 LPM [facility] Blood 07/26/2022 4:10 AM EDT 07/26/2022 4:10 AM EDT Marco Dior MD POINT OF CARE TEST O RDERABLES [facility] [place] [address] * (ABNORMAL) Differential, Automated (07/26/2022 2:10 AM EDT) Neutrophil % 83.2 % [facility] Neutrophil Absolute 6.48(H) 1.70 - 6.10 x10(3)/mc L [facility] Lymph % 10.4 % [facility] Lymphocytes Abs 0.8(L) 0.9 - 3.2 x10(3)/mc L [facility] Monocyte % 6.0 % [facility] Monocyte Abs 0.5 0.3 - 0.9 x10(3)/mc L [facility] Eos % 0.0 % [facility] Eosinophils Abs 0.0 0.0 - 0.4 x10(3)/mc L [facility] Basophil % 0.0 % [facility] Baso Absolute 0.0 0.0 - 0.1 x10(3)/mc L [facility] Immature Gran % 0.40 % [facility] Comment: Immature granulocytes(IG's)percentage and absolute count will include metamyelocytes, myelocytes, and promyelocytes. Blood smears from CBCs yielding IG's will be scanned manually for concordance. If this scan disagrees with the automated IG or if promyelocytes are noted, a manual differential will be performed. Immature Gran Absolute 0.03 0.00 - 0.04 x10(3)/[facility] Blood 07/26/2022 2:10 AM EDT 07/26/2022 2:31 AM EDT Narrative Resulting Agency Comment Spec In Lab Edwin England MD HEMATOLOGY ORDERABLE S [facility] [place] [address] * (ABNORMAL) Hemogram (07/26/2022 2:10 AM EDT) White Blood Cell 7.8 4.0 - 9.5 x10(3)/[facility] Red Blood Cell 3.95(L) 4.58 - 5.54 x10(6)/[facility] Hemoglobin 12.4(L) 13.7 - 16.5 g/dL [facility] Hematocrit 36.3(L) 40.5 - 48.5 % [facility] Mean Cell Volume 91.9 82.9 - 93.1 fL [facility] Mean Cell Hemoglobin 31.4 27.5 - 32.1 pg [facility] Mean Cell Hemoglobin Concentration 34.2 32.0 - 35.7 g/dL [facility] Platelet 111(L) 145 - 357 x10(3)/[facility] RDW Standard Deviation 49.3(H) 36.0 - 45.0 fL [facility] RDW coefficient of variation 14.6(H) 11.4 - 13.8 % [facility] Mean Platelet Volume 9.9 7.6 - 12.9 fL [facility] NRBC% auto 0.0 % [facility] NRBC Absolute 0.000 0.000 - 0.000 x10(3)/[facility] Blood 07/26/2022 2:10 AM EDT 07/26/2022 2:31 AM EDT Narrative Resulting Agency Comment Spec In Lab Edwin England MD HEMATOLOGY ORDERABLE S Performing Organization Address City/[facility] Co de Phone Number [facility] [place] [address] * Magnesium (07/26/2022 2:10 AM EDT) Magnesium 0.73 0.69 - 1.07 mmol/L [facility] Blood 07/26/2022 2:10 AM EDT 07/26/2022 2:31 AM EDT Narrative Resulting Agency Comment Spec In Lab Marco Dior MD CHEMISTRY ORDERABLES Performing Organization Address [facility] de Phone Number [facility] [place] [address] * (ABNORMAL) CK (07/26/2022 2:10 AM EDT) Creatine Kinase 833(H) 0 - 200 unit/L [facility] Blood 07/26/2022 2:10 AM EDT 07/26/2022 2:31 AM EDT Narrative Resulting Agency Comment Spec In Lab Marco Dior MD CHEMISTRY ORDERABLES Performing Organization Address [facility] de Phone Number [facility] [place] [address] * Fibrinogen (07/26/2022 2:10 AM EDT) Fibrinogen 388 200 - 393 mg/dL [facility] Comment: A fibrinogen level >100 mg/dL is adequate for hemostasis in most patients without underlying bleeding disorders. Blood 07/26/2022 2:10 AM EDT 07/26/2022 2:31 AM EDT Narrative Resulting Agency Comment Spec In Lab Marco Dior MD HEMATOLOGY ORDERABLE S Performing Organization Address City/[facility]/ZIP Co de Phone Number [facility] [place] [place] [address] * APTT (07/26/2022 2:10 AM EDT) Partial Thromboplastin Time 32 25 - 37 sec [facility] Comment: The PTT is NOT appropriate for heparin monitoring. Use the Anti-Xa level for heparin monitoring (HEP UFH) or LMWH monitoring (HEP LMW). A PTT less than 37 seconds generally indicates adequate hemostasis. Blood 07/26/2022 2:10 AM EDT 07/26/2022 2:31 AM EDT Narrative Resulting Agency Comment Spec In Lab Marco Dior MD HEMATOLOGY ORDERABLE S [facility] [place] [address] * (ABNORMAL) Comprehensive metabolic panel (non-fasting) (07/26/2022 2:10 AM EDT) Glucose 145 65 - 199 mg/dL [facility] Comment:Diabetes: >=200 mg/d L plus symptoms Blood Urea Nitrogen 12 10 - 20 mg/dL [facility] Creatinine 0.99 0.80 - 1.50 mg/dL [facility] Sodium 139 135 - 145 mmol/L [facility] Potassium 4.2 3.5 - 5.0 mmol/L [facility] Comment: Please note: ??Patients with WBC >100,000 may have falsely elevated Potassium levels. ??For accurate Potassium quantification in these patients send serum separator tube (gold top) for subsequent determinations. ??Contact the Clinical Chemistry Laboratory if there are any questions. Chloride 105 98 - 107 mmol/L [facility] Carbon Dioxide 24 22 - 31 mmol/L [facility] Anion Gap 10 5 - 15 mmol/L [facility] Calcium 8.4(L) 8.5 - 10.5 mg/dL [facility] Protein, Total 5.6(L) 6.1 - 8.0 g/dL [facility] Albumin 3.3 3.2 - 5.2 g/dL [facility] Aspartate Aminotransferase 49(H) 0 - 39 unit/L [facility] Alanine Aminotransferase 24 0 - 55 unit/L [facility] Alkaline Phosphatase 53 40 - 130 unit/L [facility] Bilirubin, Total 0.3 0.2 - 1.3 mg/dL [facility] Est Glomerular Filtration Rate 91 >=60 mL/min/1. 73 m?? [facility] Comment: This patient's estimated GFR [...] Dior MD CHEMISTRY ORDERABLES Performing Organization Address [facility] de Phone Number [facility] [place] [address] * Electrolytes panel (07/26/2022 2:10 AM EDT) Sodium 139 135 - 145 mmol/L [facility] Potassium 4.2 3.5 - 5.0 mmol/L [facility] Comment: Please note: ??Patients with WBC >100,000 may have falsely elevated Potassium levels. ??For accurate Potassium quantification in these patients send serum separator tube (gold top) for subsequent determinations. ??Contact the Clinical Chemistry Laboratory if there are any questions. Chloride 105 98 - 107 mmol/L [facility] Carbon Dioxide 24 22 - 31 mmol/L [facility] Anion Gap 10 5 - 15 mmol/L [facility] Blood 07/26/2022 2:10 AM EDT 07/26/2022 2:31 AM EDT Narrative Resulting Agency Comment Spec In Lab Marco Dior MD CHEMISTRY ORDERABLES Performing Organization Address [facility]/ZIP Co de Phone Number [facility] [place] [address] * (ABNORMAL) BLOOD GAS 2 ARTERIAL (07/26/2022 2:08 AM EDT) pH, Arterial 7.42 7.35 - 7.45 [facility] PCO2, Arterial 37 35 - 45 mmHg [facility] PO2, Arterial 71(L) 85 - 104 mmHg [facility] Bicarbonate, Arterial 23.3 20.0 - 26.0 mmol/L [facility] Base Excess, Arterial -1.2 -3.0 - 3.0 mmol/L [facility] Hgb Blood Gas 13.5(L) 13.7 - 16.5 g/dL [facility] Oxyhemoglobin, Arterial 93.6(L) 94.0 - 97.0 % [facility] Carboxyhemoglob in, Arterial 0.3 % [facility] Comment: Nonsmokers: 0.5-1.5% COHB Smokers: Variable, but usually less than 10% Toxic: 20-30% COHB Lethal: Greater than 60% COHB Methemoglobin, Arterial 0.7 <=1.5 % [facility] Na Whole Blood 136 135 - 145 mmol/L [facility] K Whole Blood 4.0 3.5 - 5.0 mmol/L [facility] Comment: Please note: Patients with WBC >100,000 may have falsely elevated Potassium levels. Contact the Clinical Chemistry Laboratory if there are any questions. ICa Whole Blood 1.13(L) 1.15 - 1.33 mmol/L [facility] Comment: Note: ??Total bilirubin higher than 20 mg/dL may lead to falsely low ionized calcium. CL Whole Blood 104 98 - 107 mmol/L [facility] [facility] Gluc Whole Bld 137 65 - 199 mg/dL [facility] Comment:Diabetes: >=200 mg/d L plus symptoms. Lactate WB 1.7 0.5 - 2.2 mmol/L [facility] Flow Art 6.0 LPM [facility] Blood 07/26/2022 2:08 AM EDT 07/26/2022 2:08 AM EDT Marco Dior MD POINT OF CARE TEST O RDERABLES [facility] [place] [address] * (ABNORMAL) BLOOD GAS 2 ARTERIAL (07/25/2022 10:44 PM EDT) pH, Arterial 7.42 7.35 - 7.45 [facility] PCO2, Arterial 35 35 - 45 mmHg [facility] PO2, Arterial 73(L) 85 - 104 mmHg [facility] Bicarbonate, Arterial 21.9 20.0 - 26.0 mmol/L [facility] Base Excess, Arterial -2.7 -3.0 - 3.0 mmol/L [facility] Hgb Blood Gas 13.4(L) 13.7 - 16.5 g/dL [facility] Oxyhemoglobin, Arterial 93.8(L) 94.0 - 97.0 % [facility] Carboxyhemoglob in, Arterial 0.5 % [facility] Comment: Nonsmokers: 0.5-1.5% COHB Smokers: Variable, but usually less than 10% Toxic: 20-30% COHB Lethal: Greater than 60% COHB Methemoglobin, Arterial 0.7 <=1.5 % [facility] Na Whole Blood 135 135 - 145 mmol/L [facility] K Whole Blood 4.1 3.5 - 5.0 mmol/L [facility] Comment: Please note: Patients with WBC >100,000 may have falsely elevated Potassium levels. Contact the Clinical Chemistry Laboratory if there are any questions. ICa Whole Blood 1.11(L) 1.15 - 1.33 mmol/L [facility] Comment: Note: ??Total bilirubin higher than 20 mg/dL may lead to falsely low ionized calcium. CL Whole Blood 104 98 - 107 mmol/L [facility] Gluc Whole Bld 161 65 - 199 mg/dL [facility] Comment:Diabetes: >=200 mg/d L plus symptoms. Lactate WB 1.5 0.5 - 2.2 mmol/L [facility] FIO2 Art 50 % [facility] PF Ratio Art 146 [facility] Blood 07/25/2022 10:4 4 PM EDT 07/25/2022 10:44 PM EDT Marco Dior MD POINT OF CARE [place] [address] * (ABNORMAL) Differential, Automated (07/25/2022 9:10 PM EDT) Neutrophil % 86.1 % [facility] Neutrophil Absolute 6.52(H) 1.70 - 6.10 x10(3)/mc L [facility] Lymph % 7.7 % [facility] Lymphocytes Abs 0.6(L) 0.9 - 3.2 x10(3)/mc L [facility] Monocyte % 5.8 % [facility] Monocyte Abs 0.4 0.3 - 0.9 x10(3)/mc L [facility] Eos % 0.0 % [facility] Eosinophils Abs 0.0 0.0 - 0.4 x10(3)/mc L [facility] Basophil % 0.1 % [facility] Baso Absolute 0.0 0.0 - 0.1 x10(3)/mc L [facility] Immature Gran % 0.30 % [facility] Comment: Immature granulocytes(IG's)percentage and absolute count will include metamyelocytes, myelocytes, and promyelocytes. Blood smears from CBCs yielding IG's will be scanned manually for concordance. If this scan disagrees with the automated IG or if promyelocytes are noted, a manual differential will be performed. Immature Gran Absolute 0.02 0.00 - 0.04 x10(3)/mc L [facility] Blood 07/25/2022 9:10 PM EDT 07/25/2022 9:19 PM EDT Narrative Resulting Agency Comment Spec In Lab Edwin England MD HEMATOLOGY ORDERABLE S [facility] [place] [address] * (ABNORMAL) Hemogram (07/25/2022 9:10 PM EDT) White Blood Cell 7.6 4.0 - 9.5 x10(3)/mc L [facility] Red Blood Cell 4.17(L) 4.58 - 5.54 x10(6)/mc L [facility] Hemoglobin 12.9(L) 13.7 - 16.5 g/dL [facility] Hematocrit 38.8(L) 40.5 - 48.5 % [facility] Mean Cell Volume 93.0 82.9 - 93.1 fL [facility] Mean Cell Hemoglobin 30.9 27.5 - 32.1 pg [facility] Mean Cell Hemoglobin Concentration 33.2 32.0 - 35.7 g/dL [facility] Platelet 106(L) 145 - 357 x10(3)/mc L [facility] RDW Standard Deviation 50.3(H) 36.0 - 45.0 fL [facility] RDW coefficient of variation 14.8(H) 11.4 - 13.8 % [facility] Mean Platelet Volume 9.9 7.6 - 12.9 fL [facility] NRBC% auto 0.0 % [facility] NRBC Absolute 0.000 0.000 - 0.000 x10(3)/mc L [facility] Blood 07/25/2022 9:10 PM EDT 07/25/2022 9:19 PM EDT Narrative Resulting Agency Comment Spec In Lab Edwin England MD HEMATOLOGY ORDERABLE S [facility] [place] [address] * Phosphorus (07/25/2022 9:10 PM EDT) Phosphorus 3.0 2.5 - 4.5 mg/dL [facility] Blood 07/25/2022 9:10 PM EDT 07/25/2022 9:19 PM EDT Narrative Resulting Agency Comment Spec In Lab Marco Dior MD CHEMISTRY ORDERABLES [facility] [place] [address] * (ABNORMAL) CK (07/25/2022 9:10 PM EDT) Creatine Kinase 726(H) 0 - 200 unit/L [facility] Blood 07/25/2022 9:10 PM EDT 07/25/2022 9:19 PM EDT Narrative Resulting Agency Comment Spec In Lab Marco Dior MD CHEMISTRY ORDERABLES Performing Organization Address [facility] Co de Phone Number [facility] [place] [address] * Fibrinogen (07/25/2022 9:10 PM EDT) Fibrinogen 357 200 - 393 mg/dL [facility] Comment: A fibrinogen level >100 mg/dL is adequate for hemostasis in most patients without underlying bleeding disorders. Blood 07/25/2022 9:10 PM EDT 07/25/2022 9:19 PM EDT Narrative Resulting Agency Comment Spec In Lab Marco Dior MD HEMATOLOGY ORDERABLE S Performing Organization Address [facility] Co de Phone Number [facility] [place] [address] * APTT (07/25/2022 9:10 PM EDT) Partial Thromboplastin Time 33 25 - 37 sec [facility] Comment: The PTT is NOT appropriate for heparin monitoring. Use the Anti-Xa level for heparin monitoring (HEP UFH) or LMWH monitoring (HEP LMW). A PTT less than 37 seconds generally indicates adequate hemostasis. Blood 07/25/2022 9:10 PM EDT 07/25/2022 9:19 PM EDT Narrative Resulting Agency Comment Spec In Lab Marco Dior MD HEMATOLOGY ORDERABLE S Performing Organization Address [facility] Co de Phone Number [facility] [place] [address] * (ABNORMAL) Comprehensive metabolic panel (non-fasting) (07/25/2022 9:10 PM EDT) Glucose 179 65 - 199 mg/dL [facility] Comment:Diabetes: >=200 mg/d L plus symptoms Blood Urea Nitrogen 16 10 - 20 mg/dL [facility] Creatinine 0.93 0.80 - 1.50 mg/dL [facility] Sodium 138 135 - 145 mmol/L [facility] Potassium 4.0 3.5 - 5.0 mmol/L [facility] Comment: Please note: ??Patients with WBC >100,000 may have falsely elevated Potassium levels. ??For accurate Potassium quantification in these patients send serum separator tube (gold top) for subsequent determinations. ??Contact the Clinical Chemistry Laboratory if there are any questions. Chloride 103 98 - 107 mmol/L [facility] Carbon Dioxide 22 22 - 31 mmol/L [facility] Anion Gap 13 5 - 15 mmol/L [facility] Calcium 8.3(L) 8.5 - 10.5 mg/dL [facility] Protein, Total 5.7(L) 6.1 - 8.0 g/dL [facility] Albumin 3.5 3.2 - 5.2 g/dL [facility] Aspartate Aminotransferase 53(H) 0 - 39 unit/L [facility] Alanine Aminotransferase 25 0 - 55 unit/L [facility] Alkaline Phosphatase 58 40 - 130 unit/L [facility] Bilirubin, Total 0.4 0.2 - 1.3 mg/dL [facility] Est Glomerular Filtration Rate 98 >=60 mL/min/1. 73 m?? [facility] Comment: This patient's estimated GFR [...] In Lab Marco Dior MD CHEMISTRY ORDERABLES [facility] [address] [place] [address] * (ABNORMAL) BLOOD GAS 2 ARTERIAL (07/25/2022 9:09 PM EDT) pH, Arterial 7.38 7.35 - 7.45 [facility] PCO2, Arterial 37 35 - 45 mmHg [facility] PO2, Arterial 63(L) 85 - 104 mmHg [facility] Bicarbonate, Arterial 21.6 20.0 - 26.0 mmol/L [facility] Base Excess, Arterial -3.5(L) -3.0 - 3.0 mmol/L [facility] Hgb Blood Gas 14.1 13.7 - 16.5 g/dL [facility] Oxyhemoglobin, Arterial 90.6(L) 94.0 - 97.0 % [facility] Carboxyhemoglob in, Arterial 0.7 % [facility] Comment: Nonsmokers: 0.5-1.5% COHB Smokers: Variable, but usually less than 10% Toxic: 20-30% COHB Lethal: Greater than 60% COHB Methemoglobin, Arterial 0.6 <=1.5 % [facility] Na Whole Blood 135 135 - 145 mmol/L [facility] K Whole Blood 3.9 3.5 - 5.0 mmol/L [facility] Comment: Please note: Patients with WBC >100,000 may have falsely elevated Potassium levels. Contact the Clinical Chemistry Laboratory if there are any questions. ICa Whole Blood 1.13(L) 1.15 - 1.33 mmol/L [facility] Comment: Note: ??Total bilirubin higher than 20 mg/dL may lead to falsely low ionized calcium. CL Whole Blood 103 98 - 107 mmol/L [facility] Gluc Whole Bld 173 65 - 199 mg/dL [facility] Comment:Diabetes: >=200 mg/d L plus symptoms. Lactate WB 1.8 0.5 - 2.2 mmol/L [facility] Flow Art 6.0 LPM [facility] Blood 07/25/2022 9:09 PM EDT 07/25/2022 9:09 PM EDT Marco Dior MD POINT OF CARE TEST O RDERABLES [facility] [place] [address] * (ABNORMAL) BLOOD GAS 2 ARTERIAL (07/25/2022 5:42 PM EDT) pH, Arterial 7.31(L) 7.35 - 7.45 [facility] PCO2, Arterial 39 35 - 45 mmHg [facility] PO2, Arterial 72(L) 85 - 104 mmHg [facility] Bicarbonate, Arterial 19.1(L) 20.0 - 26.0 mmol/L [facility] Base Excess, Arterial -7.4(L) -3.0 - 3.0 mmol/L [facility] Hgb Blood Gas 14.4 13.7 - 16.5 g/dL [facility] Oxyhemoglobin, Arterial 92.9(L) 94.0 - 97.0 % [facility] Carboxyhemoglob in, Arterial 0.8 % [facility] Comment: Nonsmokers: 0.5-1.5% COHB Smokers: Variable, but usually less than 10% Toxic: 20-30% COHB Lethal: Greater than 60% COHB Methemoglobin, Arterial 0.5 <=1.5 % [facility] Na Whole Blood 137 135 - 145 mmol/L [facility] K Whole Blood 3.8 3.5 - 5.0 mmol/L [facility] Comment: Please note: Patients with WBC >100,000 may have falsely elevated Potassium levels. Contact the Clinical Chemistry Laboratory if there are any questions. ICa Whole Blood 1.14(L) 1.15 - 1.33 mmol/L [facility] Comment: Note: ??Total bilirubin higher than 20 mg/dL may lead to falsely low ionized calcium. CL Whole Blood 105 98 - 107 mmol/L [facility] Gluc Whole Bld 161 65 - 199 mg/dL [facility] Comment:Diabetes: >=200 mg/d L plus symptoms. Lactate WB 1.7 0.5 - 2.2 mmol/L [facility] Flow Art 4.0 LPM [facility] Temp Art 36.2 Celsius [facility] Blood 07/25/2022 5:42 PM EDT 07/25/2022 5:42 PM EDT Marco Dior MD POINT OF CARE TEST O RDERABLES [facility] [address] [place] [place] [address] * XR Chest One View (07/25/2022 3:53 [...] who have questions please contact the health career coach that requested your imaging first. ? Electronically signed by: Becki Summers MD, [facility] ([phone]), at 07/25/2022 4:19 PM Narrative 07/25/2022 4:19 PM EDT EXAMINATION: XR [...] abdominal aorta and lower extremity runoff 07/24/2022 [facility] FINDINGS: Monitor leads and wires [...] patients who have questions please contactthe health career coach that requested your imaging first. Marco Diro MD IMG DX ORDERABLES * (ABNORMAL) BLOOD GAS 2 ARTERIAL (07/25/2022 3:42 PM EDT) pH, Arterial 7.29(Crit ical) 7.35 - 7.45 [facility] Comment:Noted by instrument technician apprentice. PCO2, Arterial 41 35 - 45 mmHg [facility] PO2, Arterial 66(L) 85 - 104 mmHg [facility] Bicarbonate, Arterial 19.6(L) 20.0 - 26.0 mmol/L [facility] Base Excess, Arterial -7.3(L) -3.0 - 3.0 mmol/L [facility] Hgb Blood Gas 16.4 13.7 - 16.5 g/dL [facility] Oxyhemoglobin, Arterial 91.9(L) 94.0 - 97.0 % [facility] Carboxyhemoglo bin, Arterial 0.9 % [facility] Comment: Nonsmokers: 0.5-1.5% COHB Smokers: Variable, but usually less than 10% Toxic: 20-30% COHB Lethal: Greater than 60% COHB Methemoglobin, Arterial 0.5 <=1.5 % [facility] Na Whole Blood 138 135 - 145 mmol/L [facility] K Whole Blood 3.8 3.5 - 5.0 mmol/L [facility] Comment: Please note: Patients with WBC >100,000 may have falsely elevated Potassium levels. Contact the Clinical Chemistry Laboratory if there are any questions. ICa Whole Blood 1.18 1.15 - 1.33 mmol/L [facility] Comment: Note: ??Total bilirubin higher than 20 mg/dL may lead to falsely low ionized calcium. CL Whole Blood 105 98 - 107 mmol/L [facility] Gluc Whole Bld 172 65 - 199 mg/dL [facility] Comment:Diabetes: >=200 mg/d L plus symptoms. Lactate WB 1.9 0.5 - 2.2 mmol/L [facility] Flow Art 6.0 LPM [facility] Temp Art 35.3 Celsius [facility] Blood 07/25/2022 3:42 PM EDT 07/25/2022 3:42 PM EDT Marco Dior MD POINT OF CARE TEST O RDERABLES [facility] [place] [address] * (ABNORMAL) Differential, Automated (07/25/2022 3:20 PM EDT) Neutrophil % 78.5 % [facility] Neutrophil Absolute 10.91(H) 1.70 - 6.10 x10(3)/mc L [facility] Lymph % 15.7 % [facility] Lymphocytes Abs 2.2 0.9 - 3.2 x10(3)/mc L [facility] Monocyte % 4.9 % [facility] Monocyte Abs 0.7 0.3 - 0.9 x10(3)/ L [facility] Eos % 0.2 % [facility] Eosinophils Abs 0.0 0.0 - 0.4 x10(3)/mc L [facility] Basophil % 0.3 % [facility] Baso Absolute 0.0 0.0 - 0.1 x10(3)/ L [facility] Immature Gran % 0.40 % [facility] Comment: Immature granulocytes(IG's)percentage and absolute count will include metamyelocytes, myelocytes, and promyelocytes. Blood smears from CBCs yielding IG's will be scanned manually for concordance. If this scan disagrees with the automated IG or if promyelocytes are noted, a manual differential will be performed. Immature Gran Absolute 0.06(H) 0.00 - 0.04 x10(3)/ L [facility] Blood 07/25/2022 3:20 PM EDT 07/25/2022 3:40 PM EDT Narrative Resulting Agency Comment Spec In Lab Edwin England MD HEMATOLOGY ORDERABLE S [facility] [place] [address] * (ABNORMAL) Hemogram (07/25/2022 3:20 PM EDT) White Blood Cell 13.9(H) 4.0 - 9.5 x10(3)/mc L [facility] Red Blood Cell 5.00 4.58 - 5.54 x10(6)/mc L [facility] Hemoglobin 15.3 13.7 - 16.5 g/dL [facility] Hematocrit 46.9 40.5 - 48.5 % [facility] Mean Cell Volume 93.8(H) 82.9 - 93.1 fL [facility] Mean Cell Hemoglobin 30.6 27.5 - 32.1 pg [facility] Mean Cell Hemoglobin Concentration 32.6 32.0 - 35.7 g/dL [facility] Platelet 151 145 - 357 x10(3)/mc L [facility] RDW Standard Deviation 51.3(H) 36.0 - 45.0 fL [facility] RDW coefficient of variation 14.9(H) 11.4 - 13.8 % [facility] Mean Platelet Volume 10.5 7.6 - 12.9 fL [facility] NRBC% auto 0.0 % [facility] NRBC Absolute 0.000 0.000 - 0.000 x10(3)/mc L [facility] Blood 07/25/2022 3:20 PM EDT 07/25/2022 3:40 PM EDT Narrative Resulting Agency Comment Spec In Lab Edwin England MD HEMATOLOGY ORDERABLE S Performing Organization Address [facility] Co de Phone Number [facility] [place] [address] * (ABNORMAL) CK (07/25/2022 3:20 PM EDT) Pathologist [facility] Creatine Kinase 747(H) 0 - 200 unit/L [facility] Blood 07/25/2022 3:20 PM EDT 07/25/2022 3:40 PM EDT Narrative Resulting Agency Comment Spec In Lab Marco Dior MD CHEMISTRY ORDERABLES Performing Organization Address [facility] Co de Phone Number [facility] [place] [address] * (ABNORMAL) Fibrinogen (07/25/2022 3:20 PM EDT) Pathologist [facility] Fibrinogen 402(H) 200 - 393 mg/dL [facility] Comment: A fibrinogen level >100 mg/dL is adequate for hemostasis in most patients without underlying bleeding disorders. Blood 07/25/2022 3:20 PM EDT 07/25/2022 3:40 PM EDT Narrative Resulting Agency Comment Spec In Lab Marco Dior MD HEMATOLOGY ORDERABLE S Performing Organization Address City/[facility] Co de Phone Number [facility] [place] [address] * APTT (07/25/2022 3:20 PM EDT) Partial Thromboplastin Time 35 25 - 37 sec [facility] Comment: The PTT is NOT appropriate for heparin monitoring. Use the Anti-Xa level for heparin monitoring (HEP UFH) or LMWH monitoring (HEP LMW). A PTT less than 37 seconds generally indicates adequate hemostasis. Blood 07/25/2022 3:20 PM EDT 07/25/2022 3:40 PM EDT Narrative Resulting Agency Comment Spec In Lab Marco Dior MD HEMATOLOGY ORDERABLE S Performing Organization Address [facility] Co de Phone Number [facility] [place] [address] * (ABNORMAL) Comprehensive metabolic panel (non-fasting) (07/25/2022 3:20 PM EDT) Glucose 181 65 - 199 mg/dL [facility] Comment: result rechecked- [place] Diabetes: >=200 mg/dL plus symptoms Blood Urea Nitrogen 19 10 - 20 mg/dL [facility] Creatinine 0.97 0.80 - 1.50 mg/dL [facility] Sodium 140 135 - 145 mmol/L [facility] Potassium 3.8 3.5 - 5.0 mmol/L [facility] Comment: Please note: ??Patients with WBC >100,000 may have falsely elevated Potassium levels. ??For accurate Potassium quantification in these patients send serum separator tube (gold top) for subsequent determinations. ??Contact the Clinical Chemistry Laboratory if there are any questions. Chloride 104 98 - 107 mmol/L [facility] Carbon Dioxide 19(L) 22 - 31 mmol/L [facility] Anion Gap 17(H) 5 - 15 mmol/L [facility] Calcium 8.9 8.5 - 10.5 mg/dL [facility] Protein, Total 5.9(L) 6.1 - 8.0 g/dL [facility] Albumin 3.2 3.2 - 5.2 g/dL [facility] Aspartate Aminotransferase 67(H) 0 - 39 unit/L [facility] Comment:result rechecked- [place] Alanine Aminotransferase 34 0 - 55 unit/L [facility] Comment:result rechecked- [place] Alkaline Phosphatase 74 40 - 130 unit/L [facility] Bilirubin, Total 0.4 0.2 - 1.3 mg/dL [facility] Est Glomerular Filtration Rate 93 >=60 mL/min/1. 73 m?? [facility] Comment: This patient's estimated GFR [...] In Lab Marco Dior MD CHEMISTRY ORDERABLES [facility] [place] [address] * Prothrombin Time (07/25/2022 3:20 PM EDT) Prothrombin Time 11.8 9.4 - 12.5 sec [facility] International Normalization Ratio 1.0 [facility] Comment: An INR <2.0 indicates adequate [...] Lab Marco Dior MD HEMATOLOGY ORDERABLE S [facility] [address] [place] [address] * (ABNORMAL) BLOOD GAS 2 ARTERIAL (07/25/2022 1:34 PM EDT) pH, Arterial 7.37 7.35 - 7.45 [facility] PCO2, Arterial 36 35 - 45 mmHg [facility] PO2, Arterial 157(H) 85 - 104 mmHg [facility] Bicarbonate, Arterial 21.0 20.0 - 26.0 mmol/L [facility] Base Excess, Arterial -4.9(L) -3.0 - 3.0 mmol/L [facility] Hgb Blood Gas 14.3 13.7 - 16.5 g/dL [facility] Oxyhemoglobin, Arterial 97.1(H) 94.0 - 97.0 % [facility] Carboxyhemoglob in, Arterial 1.9 % [facility] Comment: Nonsmokers: 0.5-1.5% COHB Smokers: Variable, but usually less than 10% Toxic: 20-30% COHB Lethal: Greater than 60% COHB Methemoglobin, Arterial 0.3 <=1.5 % [facility] Na Whole Blood 138 135 - 145 mmol/L [facility] K Whole Blood 4.0 3.5 - 5.0 mmol/L [facility] Comment: Please note: Patients with WBC >100,000 may have falsely elevated Potassium levels. Contact the Clinical Chemistry Laboratory if there are any questions. ICa Whole Blood 1.20 1.15 - 1.33 mmol/L [facility] Comment: Note: ??Total bilirubin higher than 20 mg/dL may lead to falsely low ionized calcium. CL Whole Blood 106 98 - 107 mmol/L [facility] Gluc Whole Bld 119 65 - 199 mg/dL [facility] Comment:Diabetes: >=200 mg/d L plus symptoms. Lactate WB 1.7 0.5 - 2.2 mmol/L [facility] Temp Art 34.5 Celsius [facility] Blood 07/25/2022 1:34 PM EDT 07/25/2022 1:34 PM EDT Marco Dior MD POINT OF CARE TEST O RDERABLES [facility] [place] [address] * (ABNORMAL) BLOOD GAS 2 ARTERIAL (07/25/2022 12:30 PM EDT) pH, Arterial 7.40 7.35 - 7.45 [facility] PCO2, Arterial 33(L) 35 - 45 mmHg [facility] PO2, Arterial 142(H) 85 - 104 mmHg [facility] Bicarbonate, Arterial 20.1 20.0 - 26.0 mmol/L [facility] Base Excess, Arterial -5.3(L) -3.0 - 3.0 mmol/L [facility] Hgb Blood Gas 14.0 13.7 - 16.5 g/dL [facility] Oxyhemoglobin, Arterial 97.3(H) 94.0 - 97.0 % [facility] Carboxyhemoglob in, Arterial 1.6 % [facility] Comment: Nonsmokers: 0.5-1.5% COHB Smokers: Variable, but usually less than 10% Toxic: 20-30% COHB Lethal: Greater than 60% COHB Methemoglobin, Arterial 0.3 <=1.5 % [facility] Na Whole Blood 136 135 - 145 mmol/L [facility] K Whole Blood 4.0 3.5 - 5.0 mmol/L [facility] Comment: Please note: Patients with WBC >100,000 may have falsely elevated Potassium levels. Contact the Clinical Chemistry Laboratory if there are any questions. ICa Whole Blood 1.26 1.15 - 1.33 mmol/L [facility] Comment: Note: ??Total bilirubin higher than 20 mg/dL may lead to falsely low ionized calcium. CL Whole Blood 105 98 - 107 mmol/L [facility] Gluc Whole Bld 105 65 - 199 mg/dL [facility] Comment:Diabetes: >=200 mg/d L plus symptoms. Lactate WB 0.9 0.5 - 2.2 mmol/L [facility] FIO2 Art 80 % [facility] PF Ratio Art 178 [facility] Temp Art 34.7 Celsius [facility] Blood 07/25/2022 12:3 0 PM EDT 07/25/2022 12:30 PM EDT Marco Dior MD POINT OF CARE TEST O RDERABLES [facility] [place] [address] * (ABNORMAL) BLOOD GAS 2 ARTERIAL (07/25/2022 11:42 AM EDT) pH, Arterial 7.37 7.35 - 7.45 [facility] PCO2, Arterial 35 35 - 45 mmHg [facility] PO2, Arterial 172(H) 85 - 104 mmHg [facility] Bicarbonate, Arterial 20.3 20.0 - 26.0 mmol/L [facility] Base Excess, Arterial -5.5(L) -3.0 - 3.0 mmol/L [facility] Hgb Blood Gas 13.1(L) 13.7 - 16.5 g/dL [facility] Oxyhemoglobin, Arterial 97.3(H) 94.0 - 97.0 % [facility] Carboxyhemoglob in, Arterial 1.6 % [facility] Comment: Nonsmokers: 0.5-1.5% COHB Smokers: Variable, but usually less than 10% Toxic: 20-30% COHB Lethal: Greater than 60% COHB Methemoglobin, Arterial 0.3 <=1.5 % [facility] Na Whole Blood 135 135 - 145 mmol/L [facility] K Whole Blood 3.6 3.5 - 5.0 mmol/L [facility] Comment: Please note: Patients with WBC >100,000 may have falsely elevated Potassium levels. Contact the Clinical Chemistry Laboratory if there are any questions. ICa Whole Blood 1.19 1.15 - 1.33 mmol/L [facility] Comment: Note: ??Total bilirubin higher than 20 mg/dL may lead to falsely low ionized calcium. CL Whole Blood 106 98 - 107 mmol/L [facility] Gluc Whole Bld 113 65 - 199 mg/dL [facility] Comment:Diabetes: >=200 mg/d L plus symptoms. Lactate WB 1.1 0.5 - 2.2 mmol/L [facility] Temp Art 34.9 Celsius [facility] Blood 07/25/2022 11:4 2 AM EDT 07/25/2022 11:42 AM EDT Marco Dior MD POINT OF CARE TEST O RDERABLES [facility] [place] [address] * (ABNORMAL) BLOOD GAS 2 ARTERIAL (07/25/2022 10:40 AM EDT) pH, Arterial 7.29(Crit ical) 7.35 - 7.45 [facility] Comment:Noted by instrument technician apprentice. PCO2, Arterial 41 35 - 45 mmHg [facility] PO2, Arterial 80(L) 85 - 104 mmHg [facility] Bicarbonate, Arterial 19.4(L) 20.0 - 26.0 mmol/L [facility] Base Excess, Arterial -7.6(L) -3.0 - 3.0 mmol/L [facility] Hgb Blood Gas 15.1 13.7 - 16.5 g/dL [facility] Oxyhemoglobin, Arterial 93.5(L) 94.0 - 97.0 % [facility] Carboxyhemoglo bin, Arterial 2.4 % [facility] Comment: Nonsmokers: 0.5-1.5% COHB Smokers: Variable, but usually less than 10% Toxic: 20-30% COHB Lethal: Greater than 60% COHB Methemoglobin, Arterial 0.3 <=1.5 % [facility] Na Whole Blood 137 135 - 145 mmol/L [facility] K Whole Blood 3.8 3.5 - 5.0 mmol/L [facility] Comment: Please note: Patients with WBC >100,000 may have falsely elevated Potassium levels. Contact the Clinical Chemistry Laboratory if there are any questions. ICa Whole Blood 1.13(L) 1.15 - 1.33 mmol/L [facility] Comment: Note: ??Total bilirubin higher than 20 mg/dL may lead to falsely low ionized calcium. CL Whole Blood 108(H) 98 - 107 mmol/L [facility] Gluc Whole Bld 91 65 - 199 mg/dL [facility] Comment:Diabetes: >=200 mg/d L plus symptoms. Lactate WB 0.8 0.5 - 2.2 mmol/L [facility] Temp Art 35.3 Celsius [facility] Blood 07/25/2022 10:4 0 AM EDT 07/25/2022 10:40 AM EDT Marco Dior MD POINT OF CARE TEST O RDERABLES [facility] [place] [address] * (ABNORMAL) BLOOD GAS 2 ARTERIAL (07/25/2022 9:34 AM EDT) pH, Arterial 7.30(L) 7.35 - 7.45 [facility] PCO2, Arterial 43 35 - 45 mmHg [facility] PO2, Arterial 125(H) 85 - 104 mmHg [facility] Bicarbonate, Arterial 20.8 20.0 - 26.0 mmol/L [facility] Base Excess, Arterial -5.6(L) -3.0 - 3.0 mmol/L [facility] Hgb Blood Gas 14.6 13.7 - 16.5 g/dL [facility] Oxyhemoglobin, Arterial 96.0 94.0 - 97.0 % [facility] Carboxyhemoglob in, Arterial 2.0 % [facility] Comment: Nonsmokers: 0.5-1.5% COHB Smokers: Variable, but usually less than 10% Toxic: 20-30% COHB Lethal: Greater than 60% COHB Methemoglobin, Arterial 0.3 <=1.5 % [facility] Na Whole Blood 137 135 - 145 mmol/L [facility] K Whole Blood 3.7 3.5 - 5.0 mmol/L [facility] Comment: Please note: Patients with WBC >100,000 may have falsely elevated Potassium levels. Contact the Clinical Chemistry Laboratory if there are any questions. ICa Whole Blood 1.13(L) 1.15 - 1.33 mmol/L [facility] Comment: Note: ??Total bilirubin higher than 20 mg/dL may lead to falsely low ionized calcium. CL Whole Blood 106 98 - 107 mmol/L [facility] Gluc Whole Bld 79 65 - 199 mg/dL [facility] Comment:Diabetes: >=200 mg/d L plus symptoms. Lactate WB 1.0 0.5 - 2.2 mmol/L [facility] Blood 07/25/2022 9:34 AM EDT 07/25/2022 9:34 AM EDT Marco Dior MD POINT OF CARE TEST O RDERABLES [facility] [place] [address] * Differential, Automated (07/25/2022 4:21 AM EDT) Neutrophil % 51.1 % [facility] Neutrophil Absolute 3.39 1.70 - 6.10 x10(3)/[facility] Lymph % 40.1 % [facility] Lymphocytes Abs 2.7 0.9 - 3.2 x10(3)/[facility] Monocyte % 6.3 % [facility] Monocyte Abs 0.4 0.3 - 0.9 x10(3)/[facility] Eos % 1.7 % [facility] Eosinophils Abs 0.1 0.0 - 0.4 x10(3)/[facility] Basophil % 0.5 % [facility] Baso Absolute 0.0 0.0 - 0.1 x10(3)/[facility] Immature Gran % 0.30 % [facility] Comment: Immature granulocytes(IG's)percentage and absolute count will include metamyelocytes, myelocytes, and promyelocytes. Blood smears from CBCs yielding IG's will be scanned manually for concordance. If this scan disagrees with the automated IG or if promyelocytes are noted, a manual differential will be performed. Immature Gran Absolute 0.02 0.00 - 0.04 x10(3)/[facility] Blood 07/25/2022 4:21 AM EDT 07/25/2022 4:26 AM EDT Narrative Resulting Agency Comment Spec In Lab Paul Reynolds MD HEMATOLOGY ORDERABLE S [facility] [place] [address] * (ABNORMAL) Hemogram (07/25/2022 4:21 AM EDT) White Blood Cell 6.6 4.0 - 9.5 x10(3)/mc L [facility] Red Blood Cell 3.94(L) 4.58 - 5.54 x10(6)/mc L [facility] Hemoglobin 12.3(L) 13.7 - 16.5 g/dL [facility] Hematocrit 36.9(L) 40.5 - 48.5 % [facility] Mean Cell Volume 93.7(H) 82.9 - 93.1 fL [facility] Mean Cell Hemoglobin 31.2 27.5 - 32.1 pg [facility] Mean Cell Hemoglobin Concentration 33.3 32.0 - 35.7 g/dL [facility] Platelet 129(L) 145 - 357 x10(3)/mc L [facility] RDW Standard Deviation 50.5(H) 36.0 - 45.0 fL [facility] RDW coefficient of variation 14.7(H) 11.4 - 13.8 % [facility] Mean Platelet Volume 10.1 7.6 - 12.9 fL [facility] NRBC% auto 0.0 % [facility] NRBC Absolute 0.000 0.000 - 0.000 x10(3)/mc L [facility] Blood 07/25/2022 4:21 AM EDT 07/25/2022 4:26 AM EDT Narrative Resulting Agency Comment Spec In Lab Paul Reynolds MD HEMATOLOGY ORDERABLE S Performing Organization Address City/[facility]/ZIP Co de Phone Number [facility] [place] [address] * Heparin (unfractionated) Level (07/25/2022 4:21 AM EDT) Pathologist [facility] UF Heparin 0.44 IU/mL [facility] Comment: Heparin (anti-Xa) levels [...] MD HEMATOLOGY ORDERABLE S Performing Organization Address [facility] Co de Phone Number [facility] [place] [address] * Phosphorus (07/25/2022 4:21 AM EDT) [facility] Phosphorus 2.5 2.5 - 4.5 mg/dL [facility] Blood 07/25/2022 4:21 AM EDT 07/25/2022 4:26 AM EDT Narrative Resulting Agency Comment Spec In Lab Marco Dior MD CHEMISTRY ORDERABLES Performing Organization Address [facility] [place] [address] * (ABNORMAL) Magnesium (07/25/2022 4:21 AM EDT) [facility] Magnesium 0.61(L) 0.69 - 1.07 mmol/L [facility] Blood 07/25/2022 4:21 AM EDT 07/25/2022 4:26 AM EDT Narrative Resulting Agency Comment Spec In Lab Marco Dior MD CHEMISTRY ORDERABLES Performing Organization Address [facility] Co de Phone Number [facility] [place] [address] * (ABNORMAL) Basic Metabolic Panel (non-fasting) (07/25/2022 4:21 AM EDT) Glucose 66 65 - 199 mg/dL [facility] Comment:Diabetes: >=200 mg/d L plus symptoms Blood Urea Nitrogen 19 10 - 20 mg/dL [facility] Creatinine 0.84 0.80 - 1.50 mg/dL [facility] Sodium 137 135 - 145 mmol/L [facility] Potassium 4.0 3.5 - 5.0 mmol/L [facility] Comment: Please note: ??Patients with WBC >100,000 may have falsely elevated Potassium levels. ??For accurate Potassium quantification in these patients send serum separator tube (gold top) for subsequent determinations. ??Contact the Clinical Chemistry Laboratory if there are any questions. Chloride 106 98 - 107 mmol/L [facility] Carbon Dioxide 19(L) 22 - 31 mmol/L [facility] Anion Gap 12 5 - 15 mmol/L [facility] Calcium 8.1(L) 8.5 - 10.5 mg/dL [facility] Est Glomerular Filtration Rate 104 >=60 mL/min/1. 73 m?? [facility] Comment: This patient's estimated GFR [...] Dior MD CHEMISTRY ORDERABLES Performing Organization Address City/[facility]/ZIP Co de Phone Number [facility] [place] [address] * SCAN DOC: IMPLANTABLE DEVICES (07/25/2022 12:00 AM EDT) Narrative 07/25/2022 12:00 AM EDT Ordered by an unspecified provider. Scanning Provider MEDIA MGR SCAN EXT O RDR/RSLT * L-Lactate2 Whole Blood (07/24/2022 9:48 PM EDT) Lactate WB 1.2 0.5 - 2.2 mmol/L [facility] Blood 07/24/2022 9:48 PM EDT 07/24/2022 9:48 PM EDT Marco Dior MD CHEMISTRY ORDERABLES Performing Organization Address City/[facility]/ZIP Co de Phone Number [facility] [place] [address] * Type and Screen Validity (07/24/2022 9:15 PM EDT) T&S only valid at [facility] Comment:This Type and Screen result is only valid at the [facility] Blood 07/24/2022 9:15 PM EDT 07/24/2022 9:24 PM EDT Narrative Resulting Agency Comment Spec In Lab Christiano Bah MD BLOOD BANK LAB ORDER TABITHA Performing Organization Address City/[facility]/ZIP Co de Phone Number [facility] [place] [address] * ABORH Recheck Status (07/24/2022 9:15 PM EDT) ABORH Recheck Order Order Placed [facility] ABORH Type Recheck Complete [facility] Blood 07/24/2022 9:15 PM EDT 07/24/2022 9:24 PM EDT Narrative Resulting Agency Comment Spec In Lab Christiano Bah MD BLOOD BANK LAB ORDER TABITHA Performing Organization Address City/[facility]/ZIP Co de Phone Number [facility] [place] [address] * Differential, Automated (07/24/2022 9:15 PM EDT) Pathologist [facility] Neutrophil % 51.2 % [facility] Neutrophil Absolute 4.15 1.70 - 6.10 x10(3)/[facility] Lymph % 39.5 % [facility] Lymphocytes Abs 3.2 0.9 - 3.2 x10(3)/[facility] Monocyte % 6.8 % [facility] Monocyte Abs 0.6 0.3 - 0.9 x10(3)/[facility] Eos % 1.9 % [facility] Eosinophils Abs 0.2 0.0 - 0.4 x10(3)/[facility] Basophil % 0.5 % [facility] Baso Absolute 0.0 0.0 - 0.1 x10(3)/[facility] Immature Gran % 0.10 % [facility] Comment: Immature granulocytes(IG's)percentage and absolute count will include metamyelocytes, myelocytes, and promyelocytes. Blood smears from CBCs yielding IG's will be scanned manually for concordance. If this scan disagrees with the automated IG or if promyelocytes are noted, a manual differential will be performed. Immature Gran Absolute 0.01 0.00 - 0.04 x10(3)/[facility] Blood 07/24/2022 9:15 PM EDT 07/24/2022 9:26 PM EDT Narrative Resulting Agency Comment Spec In Lab Christiano Bah MD [place] [address] * (ABNORMAL) Hemogram (07/24/2022 9:15 PM EDT) [facility] White Blood Cell 8.1 4.0 - 9.5 x10(3)/mc L [facility] Red Blood Cell 4.80 4.58 - 5.54 x10(6)/[facility] Hemoglobin 15.0 13.7 - 16.5 g/dL [facility] Hematocrit 44.0 40.5 - 48.5 % [facility] Mean Cell Volume 91.7 82.9 - 93.1 fL [facility] Mean Cell Hemoglobin 31.3 27.5 - 32.1 pg [facility] Mean Cell Hemoglobin Concentration 34.1 32.0 - 35.7 g/dL [facility] Platelet 153 145 - 357 x10(3)/mc L [facility] RDW Standard Deviation 49.3(H) 36.0 - 45.0 fL [facility] RDW coefficient of variation 14.7(H) 11.4 - 13.8 % [facility] Mean Platelet Volume 10.0 7.6 - 12.9 fL [facility] NRBC% auto 0.0 % [facility] NRBC Absolute 0.000 0.000 - 0.000 x10(3)/mc L [facility] Blood 07/24/2022 9:15 PM EDT 07/24/2022 9:26 PM EDT Narrative Resulting Agency Comment Spec In Lab Christiano Bah MD HEMATOLOGY ORDERABLE S [facility] [place] [address] * Antibody screen (07/24/2022 9:15 PM EDT) Ab Screen Interp Negative [facility] Expires at [id number] on: 07/27/2022 [facility] Blood 07/24/2022 9:15 PM EDT 07/24/2022 9:24 PM EDT Narrative Resulting Agency Comment Spec In Lab Christiano Bah MD BLOOD BANK LAB ORDER TABITHA [facility] [place] [address] * ABO/Rh Typing (07/24/2022 9:15 PM EDT) ABORH Type O Pos [facility] Blood 07/24/2022 9:15 PM EDT 07/24/2022 9:24 PM EDT Narrative Resulting Agency Comment Spec In Lab Christiano Bah MD BLOOD BANK LAB ORDER TABITHA Performing Organization Address [facility] Co de Phone Number [facility] [place] [address] * (ABNORMAL) Heparin (unfractionated) Level (07/24/2022 9:15 PM EDT) UF Heparin 1.05(Crit ical) IU/mL [facility] Comment: Critical Result called by ?? [...] MD HEMATOLOGY ORDERABLE S Performing Organization Address City/[facility]/ZIP Co de Phone Number [facility] [place] [address] * (ABNORMAL) APTT (07/24/2022 9:15 PM EDT) Partial Thromboplastin Time >160(Crit ical) 25 - 37 sec [facility] Comment: Critical Result called by ?? ZELABM CRITICAL Results read back by: ? Called by: BZ, Read back by: Afshan Estrella, Date/Time:07/24/22 22:16. [...] MD HEMATOLOGY ORDERABLE S Performing Organization Address [facility] de Phone Number [facility] [place] [address] * (ABNORMAL) Prothrombin Time (07/24/2022 9:15 PM EDT) Prothrombin Time 13.2(H) 9.4 - 12.5 sec [facility] International Normalization Ratio 1.2 [facility] Comment: An INR <2.0 indicates adequate [...] MD HEMATOLOGY ORDERABLE S Performing Organization Address [facility] Co de Phone Number [facility] [place] [address] * (ABNORMAL) Comprehensive metabolic panel (non-fasting) (07/24/2022 9:15 PM EDT) Glucose 73 65 - 199 mg/dL [facility] Comment:Diabetes: >=200 mg/d L plus symptoms Blood Urea Nitrogen 23(H) 10 - 20 mg/dL [facility] Creatinine 1.05 0.80 - 1.50 mg/dL [facility] Sodium 139 135 - 145 mmol/L [facility] Potassium 3.9 3.5 - 5.0 mmol/L [facility] Comment: Please note: ??Patients with WBC >100,000 may have falsely elevated Potassium levels. ??For accurate Potassium quantification in these patients send serum separator tube (gold top) for subsequent determinations. ??Contact the Clinical Chemistry Laboratory if there are any questions. Chloride 107 98 - 107 mmol/L [facility] Carbon Dioxide 20(L) 22 - 31 mmol/L [facility] Anion Gap 12 5 - 15 mmol/L [facility] Calcium 8.7 8.5 - 10.5 mg/dL [facility] Protein, Total 6.7 6.1 - 8.0 g/dL [facility] Albumin 3.7 3.2 - 5.2 g/dL [facility] Aspartate Aminotransferase 17 0 - 39 unit/L [facility] Alanine Aminotransferase 13 0 - 55 unit/L [facility] Alkaline Phosphatase 77 40 - 130 unit/L [facility] Bilirubin, Total 0.4 0.2 - 1.3 mg/dL [facility] Est Glomerular Filtration Rate 84 >=60 mL/min/1. 73 m?? [facility] Comment: This patient's estimated GFR [...] In Lab April Turner MD CHEMISTRY ORDERABLES [facility] [place] [address] documented in this encounter Visit Diagnoses Not on filedocumented in this encounter Admitting Diagnoses Diagnosis Aortic disorder Unspecified disorders of arteries and arterioles documented in this encounter Administered Medications Inactive Administered Medications - up to 3 most recent administrations Medication Order MAR Action Action Date Dose Rate Site acetaminophen (Tylenol) tablet 1,000 mg 1,000 mg, [...] Given 08/01/2022 11:26 PM EDT 1,000 mg aspirin chewable tablet 81 mg 81 mg, Oral, DAILY, First dose on 07/30/22 at 1000, Until Discontinued, Routine Given 08/02/2022 9:21 AM EDT 81 mg Given 08/01/2022 8:40 AM EDT 81 mg Given 07/31/2022 8:13 AM EDT 81 mg atenoloL (Tenormin) tablet 50 mg 50 mg, Oral, DAILY, First dose on 07/30/22 at 1000, Until Discontinued, Routine Given 08/02/2022 9:20 AM EDT 50 mg Given 08/01/2022 8:41 AM EDT 50 mg Given 07/31/2022 8:14 AM EDT 50 mg atorvastatin (Lipitor) tablet 40 mg 40 mg, Oral, EVERY EVENING, First dose on 07/30/22 at 1700, Until Discontinued, Routine Given 08/01/2022 [...] Oral, 3 TIMES DAILY PRN, Starting on 07/24/22 at 2228, Until Sun08/02/22 at 1509, Anxiety, [...] Given 08/01/2022 3:33 PM EDT 1 mg gelatin adsorbable 12-7 mm sponge PRN, Starting on Sun07/26/22 at 0822, Until Sun07/26/22 at 1312, Intra-Operative (Intra-Procedure) Given 07/26/2022 8:22 AM EDT 1 each heparin (porcine) (1,000 units/mL) injection PRN, Starting on Sun07/26/22 at 0822, Until Sun07/26/22 at 1312, Intra-Operative (Intra-Procedure), Routine Given 07/26/2022 8:22 AM EDT 2,500 Units hydrALAZINE (Apresoline) (20 mg/mL) injection 10 mg [...] Intravenous, EVERY 4 HOURS PRN, Starting on Sun07/30/22 at 0909, Until Sun08/02/22 at 1509, Pain, For break through pain not relieved with Oxycodone, Routine Given 08/01/2022 11:47 AM EDT 0.2 mg ipratropium-albuteroL (Duoneb) 0.5 mg-3 mg(2.5 mg base)/3 [...] Intravenous, EVERY 4 HOURS PRN, Starting on Sun07/27/22 at 0837, Until Sun08/02/22 at 1509, High Blood Pressure, for SBP > 160, hold for HR < 60. Give as second line to hydralazine or when HR paramter not met for hydral, Routine Given 08/01/2022 11:26 AM EDT 10 mg Given 07/29/2022 8:17 PM EDT 10 mg Given 07/29/2022 8:37 AM EDT 10 mg lidocaine (Xylocaine) 1% (10 mg/mL) injection 3 [...] Given 07/31/2022 8:13 AM EDT 25 mg oxyCODONE (Roxicodone) tablet 10-15 mg 10-15 [...] AM EDT 10 mg oxyCODONE (Roxicodone) tablet 5-10 mg 5-10 mg, Oral, EVERY 4 HOURS PRN, Starting on Sun07/30/22 at 0909, Until Sun08/02/22 at 1509, Pain, moderate pain (4-6), Initial dose 5mg. If pain control not adequate in 60 minutes, give additional 5mg., Routine Given 08/02/2022 12:51 PM EDT 5 mg Given 08/02/2022 7:44 AM EDT 5 mg pregabalin (Lyrica) capsule 100 mg 100 mg, [...] link provided on this medication record., Routine thrombin (bovine) (Thrombin-Jmi) solution PRN, Starting on Sun07/26/22 at 0822, Until Sun07/26/22 at 1312, Intra-Operative (Intra-Procedure) Given 07/26/2022 8:22 AM EDT 20,000 Uni ts documented in this encounter Active and Recently [...] on 07/29/22 at 1100, Until Discontinued, Routine 0900 (Not [...] RN)2010 (Given - Provider: Dawn Barnett RN) 0921 [...] Discontinued, Routine 0813 (Given - Provider: Missy Du)1550 (Given - Provider: Missy Du)2048 (Given - Provider: Vincent Parham RN) 0840 (Given - Provider: Jim Lamar RN)1533 (Given - Provider: Jim Lamar RN)2009 (Given - Provider: Dawn Barnett RN) 0920 [...] Vincent Parham RN - Reason: Patient/family refused) 0900 (Not Given - Provider: Jim Lamar RN - Reason: Patient/family refused)2100 (Not Given - Provider: Dawn Barnett RN - Reason: Patient/family refused) 0920 (Given - Provider: Jim Lamar RN) sertraline (Zoloft) tablet 200 mg 200 mg, Oral, DAILY, First dose (after last modification) on Sun07/31/22 at 0900, Until Discontinued, Routine 0813 (Given - Provider: Missy Du) 0838 (Given - Provider: Jim Lamar RN) 0921 (Given - Provider: Jim Lamar RN) sodium chloride 0.9 % (flush) (BD PosiFlush Normal Saline 0.9) flush 5 mL 5 mL, Intravenous, 2 TIMES DAILY, First dose on Sun07/24/22 at 2106, Until Discontinued, Routine 0820 (Given - Provider: Missy Du)2055 (Given - Provider: Vincent Parham RN) 0839 (Given - Provider: Jim Lamar RN)2009 (Given - Provider: Dawn Barnett RN) 09 (Given - Provider: Jim Lamar RN) Continuous [...] 1215 (Rate/Dose Change - Provider: Brooklynn Adhikari RN)2053 (Rate/Dose Change - Provider: Vincent Parham RN) 033 (Rate/Dose Change - Provider: Vincent Parham RN)0833 [...] Intravenous, EVERY 4 HOURS PRN, Starting on Sun07/30/22 [...] RN)1622 (See Alternative - Provider: Jim Lamar RN)8 (See Alternative - Provider: Dawn Barnett RN) [...] Routine documented in this encounter Care Teams Community Living Instructor Relationship Specialty Start Date End Date April Ramirez MD [address] [place] [address] PCP - General Family Medicine 07/24/22 documented as of this encounter
--- OUTSIDE RECORDS SUMMARY | 2024-04-04 20:23 | XMS_ITS | Encounter Summary ---
Author Organization [facility] [place] [address] Care Team Providers Care Production Boring Machine Operator Name Role Phone April Ramirez MD Primary Care Provider [phone] Reason for Visit * Reason Comments Circulatory Problem * Auth/Cert (Routine) Specialty Diagnoses / Procedures Referred By Contac t Referred To Contact Diagnoses Aortic disorder Procedures EMERGENCY IPI Marco Dior MD [facility] [place] [address] [facility] Referral ID Status Reason Start Date Expiration Date Visits Re quested Visits Authorized [id number] 1 1 Encounter Details Date Type Department Care Team ([facility] Contact Info) Description 07/25/2022 7:30 AM EDT - 07/25/2022 3:09 PM EDT Surgery [place] [address] Rut Aguilera MD [facility] [place] [address] @BYPASS GRAFT, AORTOBIFEMORAL W\ SYNTHETIC CONDUIT (WRVU 32.98) Social History Tobacco Use Types Packs/Day Years Used Date Smoking Tobacco: Never Passive Smoke Exposure: Never Smokeless Tobacco: Never Tobacco Cessation:Counseling Given: No Alcohol Use Standard Drinks/Week Comments Not Currently 0 (1 standard drink = 0.6 oz pur e alcohol) FORMERLY [facility], [facility] Inpatient Questions Answer Date Recorded Does [...] Sign Reading Time Taken Comments Blood Pressure 135/87 07/25/2022 6:00 AM EDT Pulse 87 07/25/2022 2:59 PM EDT Temperature 34.9 ??C (94.8 ??F) 07/25/2022 2 :59 PM EDT josiane hugger applied Respiratory Rate 15 07/25/2022 2:59 PM EDT Oxygen Saturation 96% 07/25/2022 2:5 9 PM EDT Inhaled Oxygen Concentration - - Weight 93 kg (205 lb) 07/24/2022 8:47 PM EDT Height 182.9 cm (6') 07/24/2022 [...] on a heparin drip and transferred to [facility] for further evaluation [...] Mannitol administered. 14x7mm dacron graft to bilateral ACCOUNTS RECEIVABLE CLERK extending onto profunda arteries. End to end proximal anastomosis, end to side distal anastomoses. No ACCOUNTS RECEIVABLE CLERK endarterectomies performed. DP PT signals b/l at [...] complain of severe pain, for which a RECEIVABLES SPECIALIST was added. On 07/29 patient was downgraded to floor status. RECEIVABLES SPECIALIST was d/c'd, bowel function returned, villegas [...] Discharge to: Home with Home Health Care [facility]. [address] [place] [address] Future Appointments and Orders Future Orders Complete By Expires EMILIA, legs, multiple levels [VAS8 Custom] 09/01/2022 03/03/2023 Process Instructions: There is no in-house vascular labour market economist available on weeknights (5pm-8am), weekends, or holidays. IF THIS IS A REQUEST FOR AN EMERGENT STUDY DURING THOSE HOURS, please have the senior provider responsible for the patient page the Vascular Surgery Fellow/Senior Resident functional director to discuss options. Scheduling Instructions: Questions: Indication for study/signs & symptoms: s/p aortobifem and left ABF limb thrombectomy Question to be answered: ?perfusion Preferred location?: [facility] CT Angiogram Abdomen & Pelvis w Contrast (Generic) [BAQ052 Custom] 09/01/2022 03/03/2023 Process Instructions: Scheduling Instructions: Questions: Creatinine to be performed prior to the study?: Hydration prep required?: Contrast allergy prep required?: Where will study be performed?: [facility] Radiology Reason for exam and clinical history: s/p aortobifem and left ABF limb thrombectomy Clinical information / michelle questions for radiologist: Stat read required?: Does patient require sedation?: GA rationale: Date of injury if applicable: Requested Time: [facility] [employer] [EQ161 Custom] As directed Process Instructions: Scheduling Instructions: Comments: Antelmo Marquez [address] [place] [id number] Diagnosis: deconditioning with Unsteady gait Significant weakness, ataxia or gait abnormality Patient's: Hgt: Ht Readings from Last 1 Encounters: 07/24/22 : 182.9 cm (6') Wgt: Wt Readings from Last 1 Encounters: 07/25/22 : 89.7 kg (197 lb 12 oz) VENDOR: [facility] Ordering: Front wheel walker Deliver to [facility] hospital room #: 411a Questions: Device Needed: WALKER (E0143) Patient Height (cm): 182.9 cm (6') Patient Weight: 89.7 kg (197 lb 12 oz) Diagnosis: Generalized weakness Referral to Home Health [REF34 Custom] As directed Process Instructions: If no progress note charted, please enter Clinical details in comments. Scheduling Instructions: Comments: Please evaluate Antelmo Marquez for admission to Home [facility]. [address] [place] [address] (home) Date of : 1965 Inpatient DOCUMENTATION FOR VNA SERVICES (INCLUDING THOSE PATIENTS WITH MEDICARE COVERAGE REQUIRINGHOME VNA SERVICES AND/OR HOSPICE SERVICES) PATIENT'S LOCATION: Antelmo Marquez [address] [place] [address] Web Services Architect's Name: self In discussion with the attending physician, it is certified that this patient is under their care and that they, or a Nurse Practitioner,Clinical Nurse specialist or Physician Campus Recruiter who is working directly with them, had [...] for managing ADL's. HOME HEALTH CARE AGENCY: [facility] [address] [place] [address] Start of care: 24-48hrs after discharge FOR [...] April Ramirez MD [address] / [place] [address] All VNA agencies which cover the area [...] Discharge: Patient Instructions You were admitted to [facility] after having your aortic [...] For any problems or questions please call [phone] For issues on weeknights after 5pm and weekends please call [phone] and ask for the Vascular Fellow functional director. AILYN Roberts 08/02/2022 11:52 AM documented in this encounter Discharge Instructions * Patient Instructions* Abiel Del Valle PA - 08/02/2022 10:43 AM EDT You were admitted to [facility] after having your aortic [...] For any problems or questions please call [phone] For issues on weeknights after 5pm and weekends please call [phone] and ask for the Vascular Fellow functional director. documented in this encounter Medications at Time [...] status, full code. AILYN Jin 08/01/2022 Pager: [phone] * Vincent Parham RN - 08/01/2022 6:17 [...] on a heparin drip and transferred to [facility] for further evaluation by vascular surgery. He is now s/p ABF performed on 07/25, complicated by postoperative LLE ischemia necessitating OR takeback, open embolectomy of R ACCOUNTS RECEIVABLE CLERK, redo patch angioplasty on 07/26. He is now recovering well and has palpable pulses in both feet and normal motor/sensory function. 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; NPO; RECEIVABLES SPECIALIST; NGT; groin wound vacs x2; L [...] TA x2 Mirlande Irby PT, DPT Pager: [phone] Physical Therapy Inpatient Rehabilitation Department * Allyn [...] on a heparin drip and transferred to [facility] for further evaluation [...] 32.98) performed by Rut Aguilera MD at [facility] MAIN OR PRO EMBLC/THRMBC FEMORAL POPLITEAL AORTO-ILIAC ARTERY Left 07/26/2022 EMBOLECTOMY OR THROMBECTOMY, FEMOROPOPLITEAL, AORTOILIAC ARTERY BY LEG INCISION- LADAN (WRVU 19.48) performed by Marco Dior MD at [facility] MAIN OR PRO REMOVAL OF CLOT IN GRAFT Left 07/26/2022 THROMBECTOMY ARTERIAL,VENOUS GRAFT (NOT FOR HEMODIALYSIS GRAFT) WITH REVISION, LOWER EXTREMITY (WRVU 17.82) performed by Marco Dior MD at [facility] MAIN OR Social History: Home setup: Pt [...] Minutes, Occupational Therapy: 28 (13:22-13:50 SC/HMx2) Pager: [phone] MARGARET Leon/Joanie Occupational Therapy Rehabilitation Department * Bran Mcfarland - 07/31/2022 1:16 PM EDT [employer] Application Developer Encounter Note Patient Name: Antelmo Marquez : [id number] MR#: [id number] Admit Date: 07/24/2022 8:28 PM Hospital Day 7 days Narrative: Visited to introduce and assess acceptance of [employer] Application Developer services. Pt was not available as medical [...] on a heparin drip and transferred to [facility] for further evaluation [...] 07/26 - takeback, open embolectomy of R ACCOUNTS RECEIVABLE CLERK, redo patch angioplasty Subjective: - NAEON, VSS [...] who have questions please contact the health wound care rn that requested your imaging first. Angiogram Aortic [...] who have questions please contact the health wound care rn that requested your imaging first. Assessment & Plan: Antelmo Marquez is a 56 y.o. male with medical history significant for HTN, anxiety, 1PPD smoker who presented from an OSH with several days of lower extremity paresthesias, pain, worsening motor function and CT showing aortic occlusion. He is now s/p ABF performed on 07/25, complicated by postoperative LLE ischemia necessitating OR takeback, open embolectomy of R ACCOUNTS RECEIVABLE CLERK, redo patch angioplasty on 07/26. He is [...] Resuscitation - Inpatient AILYN Roberts 07/31/2022 Pager: [phone] * Lyly Baltazar, TRISTEN - 07/30/2022 9:10 AM EDT Vascular Surgery [...] on a heparin drip and transferred to [facility] for further evaluation [...] 07/26 - takeback, open embolectomy of R ACCOUNTS RECEIVABLE CLERK, redo patch angioplasty Subjective: BM x2, passing [...] who have questions please contact the health wound care rn that requested your imaging first. Angiogram Aortic [...] who have questions please contact the health wound care rn that requested your imaging first. Assessment & Plan: Antelmo Marquez is a 56 y.o. male with medical history significant for HTN, anxiety, 1PPD smoker who presented from an OSH with several days of lower extremity paresthesias, pain, worsening motor function and CT showing aortic occlusion. He is now s/p ABF performed on 07/25, complicated by postoperative LLE ischemia necessitating OR takeback, open embolectomy of R ACCOUNTS RECEIVABLE CLERK, redo patch angioplasty on 07/26. He is [...] output, continue to normalize. PLAN: - d/c RECEIVABLES SPECIALIST - Scheduled APAP Pregbalin, PRN IV [...] - Inpatient Lyly Baltazar APRN 07/30/2022 Pager: [phone] * Alaina Avalos MD - 07/29/2022 8:00 [...] on a heparin drip and transferred to [facility] for further evaluation [...] ??? bisacodyL 10 mg Rectal Daily ??? RECEIVABLES SPECIALIST shift total and Settings verification Intravenous 2 Times Daily- RECEIVABLES SPECIALIST Shift Total ??? aspirin 300 mg Rectal Daily ??? sodium chloride 0.9 % (flush) 5 mL Intravenous BID ??? senna-docusate 2 tablet Oral BID ??? sertraline 25 mg Oral Daily Operations This Hospitalization: 07/25 - ABF 07/26 - takeback, open embolectomy of R ACCOUNTS RECEIVABLE CLERK, redo patch angioplasty Subjective: NGT adjusted yesterday given concern for malfunction with hiccups, thereafter worked appropriately overnight Pain control adequate with RECEIVABLES SPECIALIST Passing flatus ON, 2.15L out of [...] who have questions please contact the health wound care rn that requested your imaging first. Angiogram Aortic [...] who have questions please contact the health wound care rn that requested your imaging first. Assessment & Plan: Antelmo Marquez is a 56 y.o. male with medical history significant for HTN, anxiety, 1PPD smoker who presented from an OSH with several days of lower extremity paresthesias, pain, worsening motor function and CT showing aortic occlusion. He is now s/p ABF performed on 07/25, complicated by postoperative LLE ischemia necessitating OR takeback, open embolectomy of R ACCOUNTS RECEIVABLE CLERK, redo patch angioplasty on 07/26. He is [...] to high output - No BM since DIRECTOR WEB, will advance bowel regimen today - Remove villegas - OOB, PT/OT - Cardiology consult as above, appreciate recs.Will start Statin when NG is out, will consider Eliquis when able. No hypercoagulability workup needed Dispo: floor status, Attempt Cardiopulmonary Resuscitation - Inpatient Alaina Avalos MD 07/29/2022 Pager: [phone] * Allyn Rosales OT - 07/28/2022 8:30 [...] was started on a heparin??drip??and transferred to [facility] for further evaluation [...] 32.98) performed by Rut Aguilera MD at [facility] MAIN OR ??? PRO EMBLC/THRMBC FEMORAL POPLITEAL AORTO-ILIAC ARTERY Left 07/26/2022 EMBOLECTOMY OR THROMBECTOMY, FEMOROPOPLITEAL, AORTOILIAC ARTERY BY LEG INCISION- LADAN (WRVU 19.48) performed by Marco Dior MD at [facility] MAIN OR ??? PRO REMOVAL OF CLOT IN GRAFT Left 07/26/2022 THROMBECTOMY ARTERIAL,VENOUS GRAFT (NOT FOR HEMODIALYSIS GRAFT) WITH REVISION, LOWER EXTREMITY (WRVU 17.82) performed by Marco Dior MD at [facility] MAIN OR Social History: Home setup: Pt [...] Considerations: full code, falls, bleeding precautions, NPO, RECEIVABLES SPECIALIST, NGT, b/l groin wound vacs, L [...] WF Vision & Perception: ?? WNL/WFL Communication: WF Range of motion, strength, coordination: Hand dominance: [...] in bilateral groin sites, able to use RECEIVABLES SPECIALIST appropriately Education: patient have been educated [...] and measurable assessment of functional outcome. Pager: [phone] Allyn Rosales OTR/L 07/28/2022 Occupational Therapy Rehabilitation [...] on a heparin drip and transferred to [facility] for further evaluation [...] potassium chloride 10 mEq Intravenous Q2H ??? RECEIVABLES SPECIALIST shift total and Settings verification Intravenous 2 Times Daily- RECEIVABLES SPECIALIST Shift Total ??? aspirin 300 mg Rectal Daily ??? sodium chloride 0.9 % (flush) 5 mL Intravenous BID ??? senna-docusate 2 tablet Oral BID ??? sertraline 25 mg Oral Daily Operations This Hospitalization: 07/25 - ABF 07/26 - takeback, open embolectomy of R ACCOUNTS RECEIVABLE CLERK, redo patch angioplasty Subjective: NGT adjusted yesterday [...] Labs 07/28/22 0443 07/27/22 1800 07/27/22 0815 07/27/2252507/27/22 0037 WBC 8.9 9.2 10.2* 9.6* 10.1* HGB 10.3* 10.4* 11.2* 10.6* 10.7* HCT 30.7* 30.8* 32.7* 31.1* 31.6* PLATELET 112* 104* 96* 92* 99* Recent Labs 07/28/223 07/27/22 1800 07/27/22 0815 07/27/2226 07/27/22 0037 07/26/22 0210 07/25/22 2110 NA [...] who have questions please contact the health wound care rn that requested your imaging first. Angiogram Aortic [...] who have questions please contact the health wound care rn that requested your imaging first. Assessment & Plan: Antelmo Marquez is a 56 y.o. male with medical history significant for HTN, anxiety, 1PPD smoker who presented from an OSH with several days of lower extremity paresthesias, pain, worsening motor function and CT showing aortic occlusion. He is now s/p ABF performed on 07/25, complicated by postoperative LLE ischemia necessitating OR takeback, open embolectomy of R ACCOUNTS RECEIVABLE CLERK, redo patch angioplasty on 07/26. He is [...] - Inpatient Adi Hwang MD 07/28/2022 Pager: [phone] * Monika Dominguezcolton Miranda, PT - 07/28/2022 8:22 AM EDT Physical [...] was started on a heparin??drip??and transferred to [facility] for further evaluation by vascular surgery. He is now s/p ABF performed on 07/25, complicated by postoperative LLE ischemia necessitating OR takeback, open embolectomy of R ACCOUNTS RECEIVABLE CLERK, redo patch angioplasty on07/26. He is now recovering well and has palpable pulses in both feet and normal motor/sensory function. Patient with the following active problems: No past medical history on file. Past Surgical History: Procedure Laterality Date ??? PRO BYPASS GRAFT OTHR, AORTOBIFEMORAL N/A 07/25/2022 @BYPASS GRAFT, AORTOBIFEMORAL W\ SYNTHETIC CONDUIT (WRVU 32.98) performed by Rut Aguilera MD at [facility] MAIN OR ??? PRO EMBLC/THRMBC FEMORAL POPLITEAL AORTO-ILIAC ARTERY Left 07/26/2022 EMBOLECTOMY OR THROMBECTOMY, FEMOROPOPLITEAL, AORTOILIAC ARTERY BY LEG INCISION- LADAN (WRVU 19.48) performed by Marco Dior MD at [facility] MAIN OR ??? 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 Patient status, treatment, and mobility [...] LLE ischemia necessitating open embolectomy of R ACCOUNTS RECEIVABLE CLERK, multiple lines and tubes; lives alone) ?? [...] outlinedin this evaluation. Time IN / OUT: 3618-4200 Total Minutes, Physical Therapy: 34 (eval). Edwige Dominguez, PT DPT 07/28/2022 Pager: [phone] Physical Therapy Inpatient Rehabilitation Department * Christelle [...] to be +6.3L Christelle Pickering RD Pager: [phone] * Earle Smith MD - 07/27/2022 7:59 [...] on a heparin drip and transferred to [facility] for further evaluation [...] 07/26 - takeback, open embolectomy of R ACCOUNTS RECEIVABLE CLERK, redo patch angioplasty Subjective: CK remains low, [...] Palpable DP bilaterally Labs: Recent Labs 07/27/22 0507/27/223607/26/22173407/26/22 1155 07/26/22 1030 WBC 9.6* 10.1* 9.3 8.6 9.9* HGB 10.6* 10.7* 11.0* 11.1* 12.2* HCT 31.1* 31.6* 33.0* 33.1* 36.3* PLATELET 92* 99* 105* 105* 108* Recent Labs 07/27/22 0507/27/22 0037 07/26/22173407/26/22 1155 07/26/22 1030 07/26/22 0210 07/25/22 2110 [...] - Inpatient Earle Smith MD 07/27/2022 Pager: [phone] * Adi Hwang MD - 07/26/2022 1:36 [...] bpm] I/O last 3 completed shifts: In: 47061.2 [I.V.:88786.2; Blood:228; Other:500; NG/GT:60] Out: 25416 [Urine:8825; Other:1050; Blood:646] I/O this shift: In: [...] condition and recovering well - ok for WI ASA and SQH - SBP goal 100-160 [...] use who was transferred from OSH to [facility] on 07/24 with [...] Mannitol administered. 14x7mm dacron graft to bilateral ACCOUNTS RECEIVABLE CLERK extending onto profunda arteries. End to end proximal anastomosis, end to side distal anastomoses. No ACCOUNTS RECEIVABLE CLERK endarterectomies performed. DP PT signals b/l at [...] 0210 07/25/22 2110 07/25/22 1520 07/25/22 0421 07/24/225 WBC 8.6 9.9* 7.8 7.6 13.9* 6.6 [...] 1014 -- 1 Naso/Oral Tube 07/25/22 0730 Custer sump right nostril 07/25/22 0730 right nostril [...] on a heparin drip and transferred to [facility] for further evaluation [...] 07/26/2022 1722 Gross per 24 hour Intake 73864 ml Output 72094 ml Net 925 ml PHYSICAL EXAM: General: Alert, no acute distress Head: Atraumatic, non cyanotic Cardiac: Regular rate Pulmonary: Normal respiratory effort Abdominal: Soft, non distended Neuro: Grossly intact, follows commands Extremities: LLE with biphasic DP/PT signals, no RLE signals or pedal/femoral pulse Labs: Recent Labs 07/26/22 1155 07/26/22 1030 07/26/22 02107/25/22210907/25/22 1520 WBC 8.6 9.9* 7.8 7.6 13.9* [...] - Inpatient Earle Smith MD 07/26/2022 Pager: [phone] * Djea Chambers MD - 07/25/2022 11:05 PM EDT [...] Dior MD - 07/25/2022 7:42 AM EDT [facility] staff I had a discussion with Mr. Marquez regarding the status of the perfusion of his lower extremities. One day ago he developed severe pain with paresthesias in both lower legs. He presented to an outsidehospital where a CT scan revealed an infra-renal aortic occlusion. Upon presentation to [facility], he has intact motor [...] other risks including kidney injury, bowel injury, ME, stroke, prolonged ICU stay, and graft infection, [...] on a heparin drip and transferred to [facility] for further evaluation [...] - Continue heparin drip, monitor UFH, Hold functional director this AM for OR - Consult to pharmacy in AM for med rec re: home antihypertensive regimen - IVF: LR 100cc/hr - Pain control: tylenol, prn oxy - DVT ppx: SCDs - Continue home sertraline & clonazepam Dispo: Stepdown status, Attempt Cardiopulmonary Resuscitation - Inpatient Adi Hwang MD 07/25/2022 Pager: [phone] documented in this encounter H&P Notes * Tigre Sandoval MD - 07/25/2022 2:58 PM EDT Critical Care - Admission Note History of Present Illness: Antelmo Marquez is a 56 y.o. male with PMH of HTN, anxiety, tobacco use who was transferred from OSH to [facility] on 07/24 with [...] Value Ref Range T&S only valid at [facility] Hosp L-Lactate2 Whole Blood [...] Reynolds MD - 07/24/2022 9:59 PM EDT [facility] Department of Vascular Surgery [...] on a heparin drip and transferred to [facility] for further evaluation [...] distal pulses and thus was transferred to [facility]. In the ED her [...] information for follow-up Home Health & Hospice, [place] [address] [place] [address] Transportation: Family Functional status prior to admission: [...] Neisha Ahn RN, BSN Case Management Work [phone] * Plan of Care - Dawn Barnett [...] discuss discharge planning needs. ?? provide the [facility], Office of Care Management letter from the [employer] pertaining to rehabreferrals. ?? provide a letter describing our affiliations within the [facility] [address] and educate about their right to choose where referrals are sent. ?? provide a list of Home Health Agencies / Durable Medical Equipment vendors which serve their preferred geographic area. ?? provided patient with [facility] Star Quality Rating handout. They have requested referrals to: [facility]. [address] [place] [address] Note routed to a [employer] who will communicate referrals to facilities and provide any required information. Transportation: ambulance Barriers to discharge: Discharge planning Plan going forward: Patient to work with PT/OT to determine safe discharge plan. Care Management will continue to follow and assist with discharge planning and coordination of care as indicated. Anticipated Date of Discharge: 08/01/2022 Neisha Ahn RN, BSN Case Management Work [phone] * Plan of Care - Ifrah Hernandez [...] SICU with RN. VSS on arrival and RECEIVABLES SPECIALIST running.Pt oriented to new room. Villegas [...] of Discharge: 07/29/2022 Connie MONTGOMERY RN Phone: [phone] Pager: [phone] * Plan of Care - Hector Sorensen RN - 07/28/2022 6:52 AM EDT OUTCOME EVALUATION NOTE: OUTCOME SUMMARY: Pulses remained palpable, and skin warm. BP remained at desired parameter. Pt still with complaintsof pain at surgical sites, and Dilaudid RECEIVABLES SPECIALIST pump continues to be utilized by [...] Consultation: 07/27/2022 Admit Date: 07/24/2022 Patient Location: [address] Referring: Marco Dior MD Attending Machine Sign Writer: Vito Gomez MD Reason for Consult: Aortic [...] acetaminophen 1,000 mg Intravenous Q6H DOM ??? RECEIVABLES SPECIALIST shift total and Settings verification Intravenous 2 Times Daily- RECEIVABLES SPECIALIST Shift Total ??? aspirin 300 mg [...] 07/27/2252507/27/223607/26/22 1735 CK 1,164* 1,266* 1,303* CTA 07/26: IMPRESSION * Occluded entire LEFT limb [...] surrogate would be surrogate decision maker per [place] decision making law. (Only good for 180 days) Any patient receiving care in [place] must abide by [place] law. The hierarchy for surrogate decision making [...] (i) The agent with financial power of collections attorney or a conservator appointed in accordance [...] updated physical address. Below is correct address: [address] [place] [address] Social & Family Supports: All names listed [...] him to bring pts insurance card to [facility] when he [place] Primary Insurance: [place] Medicaid- [id number] ( levi emailed to update) Payor: / Secondary Insurance: N/A ; Prescription Coverage: yes Pref[facility] Pharmacy[facility] [place], [place] Status: Patient is a : No Primary Care Provider - PCP is April Ramirez at [facility]( levi emailed to update) Patient/Caregiver Goals of [...] nearby, and that he was indep with [employer], just bought a new truck. States that he has [place] Medicaid, as she has helped him with the paperwork. She also reports that pt has a son, Antelmo Monroy And that he is planning to come to the hospital later today. Pts sister, lives 2 hours away in [place]. ?Plan: pending medical course/therapy evaluations A member of the Care Management team will continue to monitor progress, follow for continuity of care and assist with transition of care planning. Arlene Black, RN CM, BSN, [facility] Ext [phone] * Op Note - Dayne Pedroza MD - 07/26/2022 8:05 AM EDT [facility] [place] Operative Note Patient Name: Antelmo Marquez : [id number] MR#: [id number] Case Date: 07/26/2022 Surgeon: Surgeon(s) and Role: [...] backbleeding from the SFA andprofunda branches. The creek left iliac vessel was embolectomized with a [...] Aguilera MD - 07/25/2022 9:30 AM EDT [facility] [place] Operative Note Patient Name: Antelmo Marquez : [id number] MR#: [id number] Case Date: 07/25/2022 Surgeon: Surgeon(s) and Role: * Rut Aguilera MD - Primary * Dayne Pedroza MD * Marco Dior MD * Cathy Leegr MD Preoperative diagnosis: Aortic occlusion Postoperative diagnosis: [...] Mannitol administered. 14x7mm dacron graft to bilateral ACCOUNTS RECEIVABLE CLERK extending onto profunda arteries. End to end proximal anastomosis, end to side distal anastomoses. No ACCOUNTS RECEIVABLE CLERK endarterectomies performed. DP PT signals b/l at [...] of the profunda. To do this,??the proximal ACCOUNTS RECEIVABLE CLERK, superficial femoral, circumflex and profunda arteries were [...] arrives via EMS as hospital transfer from [facility]. Aortic occlusion. 3 days intermittent pain, ladan [...] EDT BLOOD GAS ARTERIAL POC Routine 3 10:29 AM EDT EMBOLECTOMY\THROMBECTOM Y,LADAN., FEM-POP, AORTOILIAC ARTERY Routine 07/26/2022 8:44 AM EDT BLOOD GAS ARTERIAL POC Routine 3 8:[address] ANGIOGRAM AORTA LOWER EXTREMITY RUNOFF STAT 07/26/2022 7:36 AM EDT THROMBECTOMY ART,JOAO GRAFT (NOT HEMODIAL GRAFT) WITH [...] EDT BLOOD GAS ARTERIAL POC Routine 3 9:09 PM EDT BLOOD GAS ARTERIAL POC Routine 3 5:42 PM EDT XR CHEST ONE [...] 9:34 AM EDT Bypass Graft Othr, Aortobifemoral ([id number]) 07/25/2022 7:50 AM EDT Aortic occlusion BYPASS [...] 07/24/2022 9:15 PM EDT TYPE AND SCREEN ([facility] [facility]) STAT 07/24/2022 9:15 PM [...] who have questions please contact the health wound care rn that requested your imaging first. ? Narrative 09/06/2022 3:49 PM EDT EXAMINATION: CT [...] administration of contrast. Administered 74.0 ml of JCKYRZMGX069.00 mg/ml. Maximum intensity projection (MIP) were reformatted. [...] patients who have questions please contactthe health wound care rn that requested your imaging first. Marco Dior MD IMG CT ORDERABLES * (ABNORMAL) Differential, Automated (08/02/2022 5:02 AM EDT) Neutrophil % 55.9 % [facility] Neutrophil Absolute 4.31 1.70 - 6.10 x10(3)/mc L [facility] Lymph % 31.3 % [facility] Lymphocytes Abs 2.4 0.9 - 3.2 x10(3)/mc L [facility] Monocyte % 9.4 % [facility] Monocyte Abs 0.7 0.3 - 0.9 x10(3)/mc L [facility] Eos % 1.8 % [facility] Eosinophils Abs 0.1 0.0 - 0.4 x10(3)/mc L [facility] Basophil % 0.4 % [facility] Baso Absolute 0.0 0.0 - 0.1 x10(3)/ L [facility] Immature Gran % 1.20 % [facility] Comment: Immature granulocytes(IG's)percentage and absolute count will include metamyelocytes, myelocytes, and promyelocytes. Blood smears from CBCs yielding IG's will be scanned manually for concordance. If this scan disagrees with the automated IG or if promyelocytes are noted, a manual differential will be performed. Immature Gran Absolute 0.09(H) 0.00 - 0.04 x10(3)/mc L [facility] Blood 08/02/2022 5:02 AM EDT 08/02/2022 5:43 AM EDT Narrative Resulting Agency Comment Spec In Lab Alaina Avalos MD HEMATOLOGY ORDERABL ES [facility] [place] [address] * (ABNORMAL) Hemogram (08/02/2022 5:02 AM EDT) White Blood Cell 7.7 4.0 - 9.5 x10(3)/mc L [facility] Red Blood Cell 3.48(L) 4.58 - 5.54 x10(6)/mc L [facility] Hemoglobin 10.9(L) 13.7 - 16.5 g/dL [facility] Hematocrit 32.9(L) 40.5 - 48.5 % [facility] Mean Cell Volume 94.5(H) 82.9 - 93.1 fL [facility] Mean Cell Hemoglobin 31.3 27.5 - 32.1 pg [facility] Mean Cell Hemoglobin Concentration 33.1 32.0 - 35.7 g/dL [facility] Platelet 253 145 - 357 x10(3)/mc L [facility] RDW Standard Deviation 52.1(H) 36.0 - 45.0 fL [facility] RDW coefficient of variation 15.1(H) 11.4 - 13.8 % [facility] Mean Platelet Volume 9.6 7.6 - 12.9 fL [facility] NRBC% auto 0.0 % [facility] NRBC Absolute 0.000 0.000 - 0.000 x10(3)/mc L [facility] Blood 08/02/2022 5:02 AM EDT 08/02/2022 5:43 AM EDT Narrative Resulting Agency Comment Spec In Lab Alaina Avalos MD HEMATOLOGY ORDERABL ES [facility] [place] [address] * Heparin (unfractionated) Level (08/02/2022 5:02 AM EDT) UF Heparin 0.40 IU/mL [facility] Comment: Heparin (anti-Xa) levels should be [...] MD HEMATOLOGY ORDERABLE S Performing Organization Address [facility] Co de Phone Number [facility] [place] [address] * Phosphorus (08/02/2022 5:02 AM EDT) Phosphorus 3.9 2.5 - 4.5 mg/dL [facility] Blood 08/02/2022 5:02 AM EDT 08/02/2022 5:43 AM EDT Narrative Resulting Agency Comment Spec In Lab Marco Dior MD CHEMISTRY ORDERABLES Performing Organization Address [facility] Co de Phone Number [facility] [place] [address] * Magnesium (08/02/2022 5:02 AM EDT) Magnesium 0.80 0.69 - 1.07 mmol/L [facility] Blood 08/02/2022 5:02 AM EDT 08/02/2022 5:43 AM EDT Narrative Resulting Agency Comment Spec In Lab Marco Dior MD CHEMISTRY ORDERABLES Performing Organization Address [facility] de Phone Number [facility] [place] [address] * (ABNORMAL) Basic Metabolic Panel (non-fasting) (08/02/2022 5:02 AM EDT) Glucose 120 65 - 199 mg/dL [facility] Comment:Diabetes: >=200 mg/d L plus symptoms Blood Urea Nitrogen 19 10 - 20 mg/dL [facility] Creatinine 0.97 0.80 - 1.50 mg/dL [facility] Sodium 136 135 - 145 mmol/L [facility] Potassium 3.2(L) 3.5 - 5.0 mmol/L [facility] Comment: Please note: ??Patients with WBC >100,000 may have falsely elevated Potassium levels. ??For accurate Potassium quantification in these patients send serum separator tube (gold top) for subsequent determinations. ??Contact the Clinical Chemistry Laboratory if there are any questions. Chloride 103 98 - 107 mmol/L [facility] Carbon Dioxide 22 22 - 31 mmol/L [facility] Anion Gap 11 5 - 15 mmol/L [facility] Calcium 8.5 8.5 - 10.5 mg/dL [facility] Est Glomerular Filtration Rate 93 >=60 mL/min/1. 73 m?? [facility] Comment: This patient's estimated GFR [...] In Lab Marco Dior MD CHEMISTRY ORDERABLES [facility] [place] [address] * Heparin (unfractionated) Level (08/02/2022 12:12 AM EDT) UF Heparin 0.38 IU/mL [facility] Comment: Heparin (anti-Xa) levels [...] MD HEMATOLOGY ORDERABLE S Performing Organization Address [facility] Co de Phone Number [facility] [place] [address] * Heparin (unfractionated) Level (08/01/2022 5:00 PM EDT) UF Heparin 0.43 IU/mL [facility] Comment: Heparin (anti-Xa) levels should [...] MD HEMATOLOGY ORDERABLE S Performing Organization Address [facility] Co de Phone Number [facility] [place] [address] * (ABNORMAL) Basic Metabolic Panel (non-fasting) (08/01/2022 2:09 PM EDT) Glucose 113 65 - 199 mg/dL [facility] Comment:Diabetes: >=200 mg/d L plus symptoms Blood Urea Nitrogen 23(H) 10 - 20 mg/dL [facility] Creatinine 0.93 0.80 - 1.50 mg/dL [facility] Sodium 135 135 - 145 mmol/L [facility] Potassium 3.6 3.5 - 5.0 mmol/L [facility] Comment: Please note: ??Patients with WBC >100,000 may have falsely elevated Potassium levels. ??For accurate Potassium quantification in these patients send serum separator tube (gold top) for subsequent determinations. ??Contact the Clinical Chemistry Laboratory if there are any questions. Chloride 102 98 - 107 mmol/L [facility] Carbon Dioxide 23 22 - 31 mmol/L [facility] Anion Gap 10 5 - 15 mmol/L [facility] Calcium 8.4(L) 8.5 - 10.5 mg/dL [facility] Est Glomerular Filtration Rate 98 >=60 mL/min/1. 73 m?? [facility] Comment: This patient's estimated GFR [...] In Lab Marco Dior MD CHEMISTRY ORDERABLES [facility] [place] [address] * Heparin (unfractionated) Level (08/01/2022 9:58 AM EDT) UF Heparin 0.19 IU/mL [facility] Comment: Heparin (anti-Xa) levels [...] MD HEMATOLOGY ORDERABLE S Performing Organization Address City/State/[facility] Co de Phone Number [facility] [place] [address] * (ABNORMAL) Differential, Automated (08/01/2022 2:44 AM EDT) Neutrophil % 64.6 % [facility] Neutrophil Absolute 6.45(H) 1.70 - 6.10 x10(3)/mc L [facility] Lymph % 22.3 % [facility] Lymphocytes Abs 2.2 0.9 - 3.2 x10(3)/mc L [facility] Monocyte % 9.6 % [facility] Monocyte Abs 1.0(H) 0.3 - 0.9 x10(3)/mc L [facility] Eos % 1.6 % [facility] Eosinophils Abs 0.2 0.0 - 0.4 x10(3)/mc L [facility] Basophil % 0.5 % [facility] Baso Absolute 0.0 0.0 - 0.1 x10(3)/mc L [facility] Immature Gran % 1.40 % [facility] Comment: Immature granulocytes(IG's)percentage and absolute count will include metamyelocytes, myelocytes, and promyelocytes. Blood smears from CBCs yielding IG's will be scanned manually for concordance. If this scan disagrees with the automated IG or if promyelocytes are noted, a manual differential will be performed. Immature Gran Absolute 0.14(H) 0.00 - 0.04 x10(3)/mc L [facility] Blood 08/01/2022 2:44 AM EDT 08/01/2022 2:57 AM EDT Narrative Resulting Agency Comment Spec In Lab Alaina Avalos MD HEMATOLOGY ORDERABL ES [facility] [place] [address] * (ABNORMAL) Hemogram (08/01/2022 2:44 AM EDT) White Blood Cell 10.0(H) 4.0 - 9.5 x10(3)/mc L [facility] Red Blood Cell 4.01(L) 4.58 - 5.54 x10(6)/mc L [facility] Hemoglobin 12.3(L) 13.7 - 16.5 g/dL [facility] Hematocrit 36.9(L) 40.5 - 48.5 % [facility] Mean Cell Volume 92.0 82.9 - 93.1 fL [facility] Mean Cell Hemoglobin 30.7 27.5 - 32.1 pg [facility] Mean Cell Hemoglobin Concentration 33.3 32.0 - 35.7 g/dL [facility] Platelet 255 145 - 357 x10(3)/mc L [facility] RDW Standard Deviation 49.2(H) 36.0 - 45.0 fL [facility] RDW coefficient of variation 14.7(H) 11.4 - 13.8 % [facility] Mean Platelet Volume 9.3 7.6 - 12.9 fL [facility] NRBC% auto 0.0 % [facility] NRBC Absolute 0.000 0.000 - 0.000 x10(3)/ L [facility] Blood 08/01/2022 2:44 AM EDT 08/01/2022 2:57 AM EDT Narrative Resulting Agency Comment Spec In Lab Alaina Avalos MD HEMATOLOGY ORDERABL ES [facility] [place] [address] * Heparin (unfractionated) Level (08/01/2022 2:44 AM EDT) UF Heparin 0.24 IU/mL [facility] Comment: Heparin (anti-Xa) levels [...] MD HEMATOLOGY ORDERABLE S Performing Organization Address [facility] Co de Phone Number [facility] [place] [address] * Phosphorus (08/01/2022 2:44 AM EDT) Phosphorus 3.5 2.5 - 4.5 mg/dL [facility] Blood 08/01/2022 2:44 AM EDT 08/01/2022 2:57 AM EDT Narrative Resulting Agency Comment Spec In Lab Marco Dior MD CHEMISTRY ORDERABLES Performing Organization Address [facility] de Phone Number [facility] [place] [address] * Magnesium (08/01/2022 2:44 AM EDT) Magnesium 0.73 0.69 - 1.07 mmol/L [facility] Blood 08/01/2022 2:44 AM EDT 08/01/2022 2:57 AM EDT Narrative Resulting Agency Comment Spec In Lab Marco Dior MD CHEMISTRY ORDERABLES Performing Organization Address [facility] de Phone Number [facility] [place] [address] * (ABNORMAL) Basic Metabolic Panel (non-fasting) (08/01/2022 2:44 AM EDT) Glucose 94 65 - 199 mg/dL [facility] Comment:Diabetes: >=200 mg/d L plus symptoms Blood Urea Nitrogen 29(H) 10 - 20 mg/dL [facility] Creatinine 1.05 0.80 - 1.50 mg/dL [facility] Sodium 137 135 - 145 mmol/L [facility] Potassium 2.8(Criti willie) 3.5 - 5.0 mmol/L [facility] Comment: called by bm/read back by kylee de anda 08/01/22 [id number] Please note: ??Patients with WBC >100,000 may have falsely elevated Potassium levels. ??For accurate Potassium quantification in these patients send serum separator tube (gold top) for subsequent determinations. ??Contact the Clinical Chemistry Laboratory if there are any questions. Chloride 100 98 - 107 mmol/L [facility] Carbon Dioxide 22 22 - 31 mmol/L [facility] Anion Gap 15 5 - 15 mmol/L [facility] Calcium 8.7 8.5 - 10.5 mg/dL [facility] Est Glomerular Filtration Rate 84 >=60 mL/min/1. 73 m?? [facility] Comment: This patient's estimated GFR was [...] In Lab Marco Dior MD CHEMISTRY ORDERABLES [facility] [place] [address] * (ABNORMAL) Urinalysis Microscopic Exam (07/31/2022 6:50 PM EDT) RBC, Urine 9(H) 0 - 3 /HPF [facility] WBC, Urine 2 0 - 3 /HPF [facility] Squamous Epithelial Cells Raw Data, Urine 1 <=4 /HPF [facility] Hyaline Casts, Urine 2 0 - 2 /LPF [facility] Clean Catch Urine 07/31/2022 6:50 PM EDT 07/31/2022 7:01 PM EDT Narrative Resulting Agency Comment Spec In Lab Abiel ROBERTSON URINE ORDERABLES Performing Organization Address [facility] Co de Phone Number [facility] [place] [address] * Urine Hold (07/31/2022 6:50 PM EDT) Hold, Urine Sample in lab. [facility] Urine Urine / Unknown 07/31/2022 6 :50 PM EDT 07/31/2022 7:02 PM EDT Abiel ROBERTSON URINE ORDERABLES Performing Organization Address [facility] Co de Phone Number [facility] [place] [address] * (ABNORMAL) Urinalysis with reflex Culture (07/31/2022 6:50 PM EDT) Glucose, Urine Dipstick Negative Negative mg/dL [facility] Protein, Urine Dipstick Trace(A) Negative mg/dL [facility] Bilirubin, Urine Dipstick Moderate(A) Negative mg/dL [facility] Comment: Clinical correlation required for positive Urine Bilirubin results as false positive may occur with some drugs and drug related products. If a false positive is suspected a serum total bilirubin should be considered if clinically indicated. Urobilinogen, Urine Dipstick Normal Normal mg/dL [facility] pH, Urn (dipstick) 6.0 5.0 - 8.0 [facility] Blood, Urine Dipstick Negative Negative mg/dL [facility] Ketone, Urine Dipstick 15(A) Negative mg/dL [facility] Nitrite, Urine Dipstick Negative Negative [facility] Leukocytes, Urine Dipstick Trace(A) Negative [facility] Appearance, Urine Dipstick Cloudy(A) Clear [facility] Specific [place] Urine Automated >=1.030(A) 1.005 - 1.030 [facility] Color, Urine Dipstick Dark Yellow Yellow [facility] Reflex to Culture No [facility] Clean Catch Urine 07/31/2022 6:50 PM EDT 07/31/2022 7:01 PM EDT Narrative Resulting Agency Comment Spec In Lab Marco Dior MD URINE ORDERABLES Performing Organization Address [facility] Co de Phone Number [facility] [place] [address] * Heparin (unfractionated) Level (07/31/2022 6:17 PM EDT) UF Heparin <0.04 IU/mL [facility] Comment: Specimen drawn more than [...] MD HEMATOLOGY ORDERABLE S Performing Organization Address [facility] Co de Phone Number [facility] [place] [address] * (ABNORMAL) Differential, Automated (07/31/2022 5:50 AM EDT) Neutrophil % 66.1 % [facility] Neutrophil Absolute 9.40(H) 1.70 - 6.10 x10(3)/[facility] Lymph % 21.7 % [facility] Lymphocytes Abs 3.1 0.9 - 3.2 x10(3)/ L [facility] Monocyte % 9.0 % [facility] Monocyte Abs 1.3(H) 0.3 - 0.9 x10(3)/[facility] Eos % 1.5 % [facility] Eosinophils Abs 0.2 0.0 - 0.4 x10(3)/[facility] Basophil % 0.4 % [facility] Baso Absolute 0.1 0.0 - 0.1 x10(3)/[facility] Immature Gran % 1.30 % [facility] Comment: Immature granulocytes(IG's)percentage and absolute count will include metamyelocytes, myelocytes, and promyelocytes. Blood smears from CBCs yielding IG's will be scanned manually for concordance. If this scan disagrees with the automated IG or if promyelocytes are noted, a manual differential will be performed. Immature Gran Absolute 0.18(H) 0.00 - 0.04 x10(3)/[facility] Blood 07/31/2022 5:50 AM EDT 07/31/2022 6:02 AM EDT Narrative Resulting Agency Comment Spec In Lab Alaina Avalos MD HEMATOLOGY ORDERABL ES [facility] [place] [address] * (ABNORMAL) Hemogram (07/31/2022 5:50 AM EDT) White Blood Cell 14.2(H) 4.0 - 9.5 x10(3)/[facility] Red Blood Cell 4.06(L) 4.58 - 5.54 x10(6)/[facility] Hemoglobin 12.7(L) 13.7 - 16.5 g/dL [facility] Hematocrit 38.8(L) 40.5 - 48.5 % [facility] Mean Cell Volume 95.6(H) 82.9 - 93.1 fL [facility] Mean Cell Hemoglobin 31.3 27.5 - 32.1 pg [facility] LABORATORY Mean Cell Hemoglobin Concentration 32.7 32.0 - 35.7 g/dL [facility] Platelet 284 145 - 357 x10(3)/mc L [facility] RDW Standard Deviation 52.3(H) 36.0 - 45.0 fL [facility] RDW coefficient of variation 15.1(H) 11.4 - 13.8 % [facility] Mean Platelet Volume 9.5 7.6 - 12.9 fL [facility] NRBC% auto 0.0 % [facility] NRBC Absolute 0.000 0.000 - 0.000 x10(3)/mc L [facility] Blood 07/31/2022 5:50 AM EDT 07/31/2022 6:02 AM EDT Narrative Resulting Agency Comment Spec In Lab Alaina Avalos MD HEMATOLOGY ORDERABL ES Performing Organization Address City/[facility]/ZIP Co de Phone Number [facility] [place] [address] * Phosphorus (07/31/2022 5:50 AM EDT) Phosphorus 4.0 2.5 - 4.5 mg/dL [facility] Blood 07/31/2022 5:50 AM EDT 07/31/2022 6:02 AM EDT Narrative Resulting Agency Comment Spec In Lab Marco Dior MD CHEMISTRY ORDERABLES [facility] [place] [address] * Magnesium (07/31/2022 5:50 AM EDT) Magnesium 0.81 0.69 - 1.07 mmol/L [facility] Blood 07/31/2022 5:50 AM EDT 07/31/2022 6:02 AM EDT Narrative Resulting Agency Comment Spec In Lab Marco Dior MD CHEMISTRY ORDERABLES [facility] [place] [address] * (ABNORMAL) Basic Metabolic Panel (non-fasting) (07/31/2022 5:50 AM EDT) Glucose 87 65 - 199 mg/dL [facility] Comment:Diabetes: >=200 mg/d L plus symptoms Blood Urea Nitrogen 26(H) 10 - 20 mg/dL [facility] Creatinine 0.95 0.80 - 1.50 mg/dL [facility] Sodium 133(L) 135 - 145 mmol/L [facility] Potassium 3.2(L) 3.5 - 5.0 mmol/L [facility] Comment: Please note: ??Patients with WBC >100,000 may have falsely elevated Potassium levels. ??For accurate Potassium quantification in these patients send serum separator tube (gold top) for subsequent determinations. ??Contact the Clinical Chemistry Laboratory if there are any questions. Chloride 97(L) 98 - 107 mmol/L [facility] Carbon Dioxide 20(L) 22 - 31 mmol/L [facility] Anion Gap 16(H) 5 - 15 mmol/L [facility] Calcium 9.2 8.5 - 10.5 mg/dL [facility] Est Glomerular Filtration Rate 95 >=60 mL/min/1. 73 m?? [facility] Comment: This patient's estimated GFR was [...] In Lab Marco Dior MD [place] [address] * (ABNORMAL) Differential, Automated (07/30/2022 4:05 AM EDT) Neutrophil % 76.2 % [facility] Neutrophil Absolute 6.55(H) 1.70 - 6.10 x10(3)/mc L [facility] Lymph % 14.3 % [facility] Lymphocytes Abs 1.2 0.9 - 3.2 x10(3)/mc L [facility] Monocyte % 7.4 % [facility] Monocyte Abs 0.6 0.3 - 0.9 x10(3)/mc L [facility] Eos % 0.8 % [facility] Eosinophils Abs 0.1 0.0 - 0.4 x10(3)/mc L [facility] Basophil % 0.3 % [facility] Baso Absolute 0.0 0.0 - 0.1 x10(3)/mc L [facility] Immature Gran % 1.00 % [facility] Comment: Immature granulocytes(IG's)percentage and absolute count will include metamyelocytes, myelocytes, and promyelocytes. Blood smears from CBCs yielding IG's will be scanned manually for concordance. If this scan disagrees with the automated IG or if promyelocytes are noted, a manual differential will be performed. Immature Gran Absolute 0.09(H) 0.00 - 0.04 x10(3)/mc L [facility] Blood 07/30/2022 4:05 AM EDT 07/30/2022 4:11 AM EDT Narrative Resulting Agency Comment Spec In Lab Adi Hwang MD HEMATOLOGY ORDER TABITHA Performing Organization Address City/[facility]/[place] [address] * (ABNORMAL) Hemogram (07/30/2022 4:05 AM EDT) White Blood Cell 8.6 4.0 - 9.5 x10(3)/mc L [facility] Red Blood Cell 3.84(L) 4.58 - 5.54 x10(6)/mc L [facility] Hemoglobin 12.1(L) 13.7 - 16.5 g/dL [facility] Hematocrit 36.9(L) 40.5 - 48.5 % [facility] Mean Cell Volume 96.1(H) 82.9 - 93.1 fL [facility] Mean Cell Hemoglobin 31.5 27.5 - 32.1 pg [facility] Mean Cell Hemoglobin Concentration 32.8 32.0 - 35.7 g/dL [facility] Platelet 179 145 - 357 x10(3)/mc L [facility] RDW Standard Deviation 52.4(H) 36.0 - 45.0 fL [facility] RDW coefficient of variation 15.1(H) 11.4 - 13.8 % [facility] Mean Platelet Volume 9.7 7.6 - 12.9 fL [facility] NRBC% auto 0.0 % [facility] NRBC Absolute 0.000 0.000 - 0.000 x10(3)/mc L [facility] Blood 07/30/2022 4:05 AM EDT 07/30/2022 4:11 AM EDT Narrative Resulting Agency Comment Spec In Lab Adi Hwang MD HEMATOLOGY ORDER TABITHA Performing Organization Address City/[facility]/ZIP Co de Phone Number [facility] [place] [address] * (ABNORMAL) Phosphorus (07/30/2022 4:05 AM EDT) Phosphorus 4.7(H) 2.5 - 4.5 mg/dL [facility] Blood 07/30/2022 4:05 AM EDT 07/30/2022 4:11 AM EDT Narrative Resulting Agency Comment Spec In Lab Marco Dior MD CHEMISTRY ORDERABLES Performing Organization Address City/[facility]/ZIP Co de Phone Number [facility] [place] [address] * Magnesium (07/30/2022 4:05 AM EDT) Magnesium 0.80 0.69 - 1.07 mmol/L [facility] Blood 07/30/2022 4:05 AM EDT 07/30/2022 4:11 AM EDT Narrative Resulting Agency Comment Spec In Lab Marco Dior MD CHEMISTRY ORDERABLES Performing Organization Address City/State/[facility] Co de Phone Number [facility] [place] [address] * (ABNORMAL) Basic Metabolic Panel (non-fasting) (07/30/2022 4:05 AM EDT) Glucose 84 65 - 199 mg/dL [facility] Comment:Diabetes: >=200 mg/d L plus symptoms Blood Urea Nitrogen 22(H) 10 - 20 mg/dL [facility] Creatinine 0.98 0.80 - 1.50 mg/dL [facility] Sodium 140 135 - 145 mmol/L [facility] Potassium 3.9 3.5 - 5.0 mmol/L [facility] Comment: Please note: ??Patients with WBC >100,000 may have falsely elevated Potassium levels. ??For accurate Potassium quantification in these patients send serum separator tube (gold top) for subsequent determinations. ??Contact the Clinical Chemistry Laboratory if there are any questions. Chloride 101 98 - 107 mmol/L [facility] Carbon Dioxide 20(L) 22 - 31 mmol/L [facility] Anion Gap 19(H) 5 - 15 mmol/L [facility] Calcium 9.2 8.5 - 10.5 mg/dL [facility] Est Glomerular Filtration Rate 92 >=60 mL/min/1. 73 m?? [facility] Comment: This patient's estimated GFR was [...] Resulting Agency Comment Spec In Lab Marco Doir MD CHEMISTRY ORDERABLES [facility] [place] [address] * (ABNORMAL) Basic Metabolic Panel (non-fasting) (07/29/2022 1:40 PM EDT) Glucose 68 65 - 199 mg/dL [facility] Comment:Diabetes: >=200 mg/d L plus symptoms Blood Urea Nitrogen 18 10 - 20 mg/dL [facility] Creatinine 1.02 0.80 - 1.50 mg/dL [facility] Sodium 139 135 - 145 mmol/L [facility] Potassium 4.0 3.5 - 5.0 mmol/L [facility] Comment: Please note: ??Patients with WBC >100,000 may have falsely elevated Potassium levels. ??For accurate Potassium quantification in these patients send serum separator tube (gold top) for subsequent determinations. ??Contact the Clinical Chemistry Laboratory if there are any questions. Chloride 99 98 - 107 mmol/L [facility] Carbon Dioxide 19(L) 22 - 31 mmol/L [facility] Anion Gap 21(H) 5 - 15 mmol/L [facility] Calcium 8.8 8.5 - 10.5 mg/dL [facility] Est Glomerular Filtration Rate 87 >=60 mL/min/1. 73 m?? [facility] Comment: This patient's estimated GFR was [...] Agency Comment Spec In Lab Lyly Baltazar APRN CHEMISTRY ORDERABL ES Performing Organization Address City/[facility]/[place] [address] * (ABNORMAL) Differential, Automated (07/29/2022 1:32 AM EDT) Neutrophil % 76.9 % [facility] Neutrophil Absolute 6.96(H) 1.70 - 6.10 x10(3)/mc L [facility] Lymph % 15.7 % [facility] Lymphocytes Abs 1.4 0.9 - 3.2 x10(3)/mc L [facility] Monocyte % 5.7 % [facility] Monocyte Abs 0.5 0.3 - 0.9 x10(3)/mc L [facility] Eos % 0.2 % [facility] Eosinophils Abs 0.0 0.0 - 0.4 x10(3)/mc L [facility] Basophil % 0.2 % [facility] Baso Absolute 0.0 0.0 - 0.1 x10(3)/mc L [facility] Immature Gran % 1.30 % [facility] Comment: Immature granulocytes(IG's)percentage and absolute count will include metamyelocytes, myelocytes, and promyelocytes. Blood smears from CBCs yielding IG's will be scanned manually for concordance. If this scan disagrees with the automated IG or if promyelocytes are noted, a manual differential will be performed. Immature Gran Absolute 0.12(H) 0.00 - 0.04 x10(3)/mc L [facility] Blood 07/29/2022 1:32 AM EDT 07/29/2022 1:47 AM EDT Narrative Resulting Agency Comment Spec In Lab Adi Hwang MD HEMATOLOGY ORDER TABITHA Performing Organization Address City/[facility]/[place] [address] * (ABNORMAL) Hemogram (07/29/2022 1:32 AM EDT) White Blood Cell 9.1 4.0 - 9.5 x10(3)/mc L [facility] Red Blood Cell 3.64(L) 4.58 - 5.54 x10(6)/mc L [facility] Hemoglobin 11.5(L) 13.7 - 16.5 g/dL [facility] Hematocrit 34.4(L) 40.5 - 48.5 % [facility] Mean Cell Volume 94.5(H) 82.9 - 93.1 fL [facility] Mean Cell Hemoglobin 31.6 27.5 - 32.1 pg [facility] Mean Cell Hemoglobin Concentration 33.4 32.0 - 35.7 g/dL [facility] Platelet 122(L) 145 - 357 x10(3)/mc L [facility] RDW Standard Deviation 52.0(H) 36.0 - 45.0 fL [facility] RDW coefficient of variation 15.1(H) 11.4 - 13.8 % [facility] Mean Platelet Volume 10.1 7.6 - 12.9 fL [facility] NRBC% auto 0.0 % [facility] NRBC Absolute 0.000 0.000 - 0.000 x10(3)/ L [facility] Blood 07/29/2022 1:32 AM EDT 07/29/2022 1:47 AM EDT Narrative Resulting Agency Comment Spec In Lab Adi Hwang MD HEMATOLOGY ORDER TABITHA [facility] [place] [address] * Phosphorus (07/29/2022 1:32 AM EDT) Phosphorus 3.8 2.5 - 4.5 mg/dL [facility] Blood 07/29/2022 1:32 AM EDT 07/29/2022 1:47 AM EDT Narrative Resulting Agency Comment Spec In Lab Marco Dior MD CHEMISTRY ORDERABLES Performing Organization Address City/[facility]/ZIP Co de Phone Number [facility] [place] [address] * Magnesium (07/29/2022 1:32 AM EDT) Magnesium 0.83 0.69 - 1.07 mmol/L [facility] Blood 07/29/2022 1:32 AM EDT 07/29/2022 1:47 AM EDT Narrative Resulting Agency Comment Spec In Lab Marco Dior MD CHEMISTRY ORDERABLES Performing Organization Address [facility] Co de Phone Number [facility] [place] [address] * (ABNORMAL) Basic Metabolic Panel (non-fasting) (07/29/2022 1:32 AM EDT) Glucose 71 65 - 199 mg/dL [facility] Comment:Diabetes: >=200 mg/d L plus symptoms Blood Urea Nitrogen 18 10 - 20 mg/dL [facility] Creatinine 1.00 0.80 - 1.50 mg/dL [facility] Sodium 139 135 - 145 mmol/L [facility] Potassium 3.9 3.5 - 5.0 mmol/L [facility] Comment: Please note: ??Patients with WBC >100,000 may have falsely elevated Potassium levels. ??For accurate Potassium quantification in these patients send serum separator tube (gold top) for subsequent determinations. ??Contact the Clinical Chemistry Laboratory if there are any questions. Chloride 100 98 - 107 mmol/L [facility] Carbon Dioxide 23 22 - 31 mmol/L [facility] Anion Gap 16(H) 5 - 15 mmol/L [facility] Calcium 8.7 8.5 - 10.5 mg/dL [facility] Est Glomerular Filtration Rate 89 >=60 mL/min/1. 73 m?? [facility] Comment: This patient's estimated GFR was [...] In Lab Marco Dior MD CHEMISTRY ORDERABLES [facility] [place] [address] * (ABNORMAL) Differential, Automated (07/28/2022 4:43 AM EDT) Neutrophil % 72.5 % [facility] Neutrophil Absolute 6.44(H) 1.70 - 6.10 x10(3)/mc L [facility] Lymph % 21.2 % [facility] Lymphocytes Abs 1.9 0.9 - 3.2 x10(3)/mc L [facility] Monocyte % 5.6 % [facility] Monocyte Abs 0.5 0.3 - 0.9 x10(3)/mc L [facility] Eos % 0.0 % [facility] Eosinophils Abs 0.0 0.0 - 0.4 x10(3)/mc L [facility] Basophil % 0.1 % [facility] Baso Absolute 0.0 0.0 - 0.1 x10(3)/mc L [facility] Immature Gran % 0.60 % [facility] Comment: Immature granulocytes(IG's)percentage and absolute count will include metamyelocytes, myelocytes, and promyelocytes. Blood smears from CBCs yielding IG's will be scanned manually for concordance. If this scan disagrees with the automated IG or if promyelocytes are noted, a manual differential will be performed. Immature Gran Absolute 0.05(H) 0.00 - 0.04 x10(3)/mc L [facility] Blood 07/28/2022 4:43 AM EDT 07/28/2022 4:51 AM EDT Narrative Resulting Agency Comment Spec In Lab Marco Dior MD HEMATOLOGY ORDERABLE S [facility] [place] [address] * (ABNORMAL) Hemogram (07/28/2022 4:43 AM EDT) White Blood Cell 8.9 4.0 - 9.5 x10(3)/mc L [facility] Red Blood Cell 3.24(L) 4.58 - 5.54 x10(6)/mc L [facility] Hemoglobin 10.3(L) 13.7 - 16.5 g/dL [facility] Hematocrit 30.7(L) 40.5 - 48.5 % [facility] Mean Cell Volume 94.8(H) 82.9 - 93.1 fL [facility] Mean Cell Hemoglobin 31.8 27.5 - 32.1 pg [facility] Mean Cell Hemoglobin Concentration 33.6 32.0 - 35.7 g/dL [facility] Platelet 112(L) 145 - 357 x10(3)/mc L [facility] RDW Standard Deviation 53.6(H) 36.0 - 45.0 fL [facility] RDW coefficient of variation 15.2(H) 11.4 - 13.8 % [facility] Mean Platelet Volume 10.4 7.6 - 12.9 fL [facility] NRBC% auto 0.0 % [facility] NRBC Absolute 0.000 0.000 - 0.000 x10(3)/mc L [facility] Blood 07/28/2022 4:43 AM EDT 07/28/2022 4:51 AM EDT Narrative Resulting Agency Comment Spec In Lab Marco Dior MD HEMATOLOGY ORDERABLE S [facility] [place] [address] * (ABNORMAL) Basic Metabolic Panel (non-fasting) (07/28/2022 4:43 AM EDT) Glucose 75 65 - 199 mg/dL [facility] Comment:Diabetes: >=200 mg/d L plus symptoms Blood Urea Nitrogen 17 10 - 20 mg/dL [facility] Creatinine 1.03 0.80 - 1.50 mg/dL [facility] Sodium 139 135 - 145 mmol/L [facility] Potassium 3.7 3.5 - 5.0 mmol/L [facility] Comment: Please note: ??Patients with WBC >100,000 may have falsely elevated Potassium levels. ??For accurate Potassium quantification in these patients send serum separator tube (gold top) for subsequent determinations. ??Contact the Clinical Chemistry Laboratory if there are any questions. Chloride 104 98 - 107 mmol/L [facility] Carbon Dioxide 25 22 - 31 mmol/L [facility] Anion Gap 10 5 - 15 mmol/L [facility] Calcium 8.4(L) 8.5 - 10.5 mg/dL [facility] Est Glomerular Filtration Rate 86 >=60 mL/min/1. 73 m?? [facility] Comment: This patient's estimated GFR was [...] In Lab Marco Dior MD CHEMISTRY ORDERABLES [facility] [place] [address] * (ABNORMAL) Differential, Automated (07/27/2022 6:00 PM EDT) Neutrophil % 75.8 % [facility] Neutrophil Absolute 6.99(H) 1.70 - 6.10 x10(3)/mc L [facility] Lymph % 18.0 % [facility] Lymphocytes Abs 1.7 0.9 - 3.2 x10(3)/[facility] Monocyte % 5.7 % [facility] Monocyte Abs 0.5 0.3 - 0.9 x10(3)/[facility] Eos % 0.0 % [facility] Eosinophils Abs 0.0 0.0 - 0.4 x10(3)/[facility] Basophil % 0.1 % [facility] Baso Absolute 0.0 0.0 - 0.1 x10(3)/[facility] Immature Gran % 0.40 % [facility] Comment: Immature granulocytes(IG's)percentage and absolute count will include metamyelocytes, myelocytes, and promyelocytes. Blood smears from CBCs yielding IG's will be scanned manually for concordance. If this scan disagrees with the automated IG or if promyelocytes are noted, a manual differential will be performed. Immature Gran Absolute 0.04 0.00 - 0.04 x10(3)/[facility] Blood 07/27/2022 6:00 PM EDT 07/27/2022 6:08 PM EDT Narrative Resulting Agency Comment Spec In Lab Earle Smith MD HEMATOLOGY ORDER TABITHA [facility] [place] [address] * (ABNORMAL) Hemogram (07/27/2022 6:00 PM EDT) White Blood Cell 9.2 4.0 - 9.5 x10(3)/[facility] Red Blood Cell 3.31(L) 4.58 - 5.54 x10(6)/[facility] Hemoglobin 10.4(L) 13.7 - 16.5 g/dL [facility] Hematocrit 30.8(L) 40.5 - 48.5 % [facility] Mean Cell Volume 93.1 82.9 - 93.1 fL [facility] Mean Cell Hemoglobin 31.4 27.5 - 32.1 pg [facility] Mean Cell Hemoglobin Concentration 33.8 32.0 - 35.7 g/dL [facility] Platelet 104(L) 145 - 357 x10(3)/mc L [facility] RDW Standard Deviation 51.3(H) 36.0 - 45.0 fL [facility] RDW coefficient of variation 15.1(H) 11.4 - 13.8 % [facility] Mean Platelet Volume 10.8 7.6 - 12.9 fL [facility] NRBC% auto 0.0 % [facility] NRBC Absolute 0.000 0.000 - 0.000 x10(3)/mc L [facility] Blood 07/27/2022 6:00 PM EDT 07/27/2022 6:08 PM EDT Narrative Resulting Agency Comment Spec In Lab Earle Smith MD HEMATOLOGY ORDER TABITHA [facility] [place] [address] * Basic Metabolic Panel (non-fasting) (07/27/2022 6:00 PM EDT) Glucose 92 65 - 199 mg/dL [facility] Comment:Diabetes: >=200 mg/d L plus symptoms Blood Urea Nitrogen 15 10 - 20 mg/dL [facility] Creatinine 1.08 0.80 - 1.50 mg/dL [facility] Sodium 138 135 - 145 mmol/L [facility] Potassium 3.8 3.5 - 5.0 mmol/L [facility] Comment: Please note: ??Patients with WBC >100,000 may have falsely elevated Potassium levels. ??For accurate Potassium quantification in these patients send serum separator tube (gold top) for subsequent determinations. ??Contact the Clinical Chemistry Laboratory if there are any questions. Chloride 104 98 - 107 mmol/L [facility] Carbon Dioxide 24 22 - 31 mmol/L [facility] Anion Gap 10 5 - 15 mmol/L [facility] Calcium 8.5 8.5 - 10.5 mg/dL [facility] Est Glomerular Filtration Rate 82 >=60 mL/min/1. 73 m?? [facility] Comment: This patient's estimated GFR was [...] Dior MD CHEMISTRY ORDERABLES Performing Organization Address [facility] Co de Phone Number [facility] [place] [address] * Phosphorus (07/27/2022 6:00 PM EDT) Phosphorus 3.4 2.5 - 4.5 mg/dL [facility] Blood 07/27/2022 6:00 PM EDT 07/27/2022 6:08 PM EDT Narrative Resulting Agency Comment Spec In Lab Marco Dior MD CHEMISTRY ORDERABLES Performing Organization Address [facility] Co de Phone Number [facility] [place] [address] * Magnesium (07/27/2022 6:00 PM EDT) Magnesium 0.81 0.69 - 1.07 mmol/L [facility] Blood 07/27/2022 6:00 PM EDT 07/27/2022 6:08 PM EDT Narrative Resulting Agency Comment Spec In Lab Marco Dior MD CHEMISTRY ORDERABLES Performing Organization Address [facility] Co de Phone Number [facility] [place] [address] * (ABNORMAL) Differential, Automated (07/27/2022 8:15 AM EDT) Pathologist [facility] Neutrophil % 80.7 % [facility] Neutrophil Absolute 8.20(H) 1.70 - 6.10 x10(3)/mc L [facility] Lymph % 11.9 % [facility] Lymphocytes Abs 1.2 0.9 - 3.2 x10(3)/mc L [facility] Monocyte % 6.8 % [facility] Monocyte Abs 0.7 0.3 - 0.9 x10(3)/ L [facility] Eos % 0.0 % [facility] Eosinophils Abs 0.0 0.0 - 0.4 x10(3)/[facility] Basophil % 0.1 % [facility] Baso Absolute 0.0 0.0 - 0.1 x10(3)/ L [facility] Immature Gran % 0.50 % [facility] Comment: Immature granulocytes(IG's)percentage and absolute count will include metamyelocytes, myelocytes, and promyelocytes. Blood smears from CBCs yielding IG's will be scanned manually for concordance. If this scan disagrees with the automated IG or if promyelocytes are noted, a manual differential will be performed. Immature Gran Absolute 0.05(H) 0.00 - 0.04 x10(3)/ L [facility] Blood 07/27/2022 8:15 AM EDT 07/27/2022 8:27 AM EDT Narrative Resulting Agency Comment Spec In Lab Earle Smith MD HEMATOLOGY ORDER TABITHA [facility] [place] [address] * (ABNORMAL) Hemogram (07/27/2022 8:15 AM EDT) [facility] White Blood Cell 10.2(H) 4.0 - 9.5 x10(3)/mc L [facility] Red Blood Cell 3.54(L) 4.58 - 5.54 x10(6)/[facility] Hemoglobin 11.2(L) 13.7 - 16.5 g/dL [facility] Hematocrit 32.7(L) 40.5 - 48.5 % [facility] Mean Cell Volume 92.4 82.9 - 93.1 fL [facility] Mean Cell Hemoglobin 31.6 27.5 - 32.1 pg [facility] Mean Cell Hemoglobin Concentration 34.3 32.0 - 35.7 g/dL [facility] Platelet 96(L) 145 - 357 x10(3)/mc L [facility] RDW Standard Deviation 51.1(H) 36.0 - 45.0 fL [facility] RDW coefficient of variation 14.9(H) 11.4 - 13.8 % [facility] Mean Platelet Volume 10.7 7.6 - 12.9 fL [facility] NRBC% auto 0.0 % [facility] NRBC Absolute 0.000 0.000 - 0.000 x10(3)/mc L [facility] Blood 07/27/2022 8:15 AM EDT 07/27/2022 8:27 AM EDT Narrative Resulting Agency Comment Spec In Lab Earle Smith MD HEMATOLOGY ORDER TABITHA [facility] [place] [address] * Basic Metabolic Panel (non-fasting) (07/27/2022 8:15 AM EDT) Glucose 107 65 - 199 mg/dL [facility] Comment:Diabetes: >=200 mg/d L plus symptoms Blood Urea Nitrogen 11 10 - 20 mg/dL [facility] Creatinine 0.99 0.80 - 1.50 mg/dL [facility] Sodium 138 135 - 145 mmol/L [facility] Potassium 4.0 3.5 - 5.0 mmol/L [facility] Comment: Please note: ??Patients with WBC >100,000 may have falsely elevated Potassium levels. ??For accurate Potassium quantification in these patients send serum separator tube (gold top) for subsequent determinations. ??Contact the Clinical Chemistry Laboratory if there are any questions. Chloride 103 98 - 107 mmol/L [facility] Carbon Dioxide 25 22 - 31 mmol/L [facility] Anion Gap 10 5 - 15 mmol/L [facility] Calcium 8.8 8.5 - 10.5 mg/dL [facility] Est Glomerular Filtration Rate 91 >=60 mL/min/1. 73 m?? [facility] Comment: This patient's estimated GFR was [...] Dior MD CHEMISTRY ORDERABLES Performing Organization Address [facility] Co de Phone Number [facility] [place] [address] * (ABNORMAL) Phosphorus (07/27/2022 8:15 AM EDT) Phosphorus 2.3(L) 2.5 - 4.5 mg/dL [facility] Blood 07/27/2022 8:15 AM EDT 07/27/2022 8:27 AM EDT Narrative Resulting Agency Comment Spec In Lab Marco Dior MD CHEMISTRY ORDERABLES Performing Organization Address [facility] Co de Phone Number [facility] [place] [address] * Magnesium (07/27/2022 8:15 AM EDT) Magnesium 0.82 0.69 - 1.07 mmol/L [facility] Blood 07/27/2022 8:15 AM EDT 07/27/2022 8:27 AM EDT Narrative Resulting Agency Comment Spec In Lab Marco Dior [place] [address] * (ABNORMAL) Differential, Automated (07/27/2022 5:26 AM EDT) Neutrophil % 82.1 % [facility] Neutrophil Absolute 7.91(H) 1.70 - 6.10 x10(3)/mc L [facility] Lymph % 11.2 % [facility] Lymphocytes Abs 1.1 0.9 - 3.2 x10(3)/mc L [facility] Monocyte % 6.4 % [facility] Monocyte Abs 0.6 0.3 - 0.9 x10(3)/[facility] Eos % 0.0 % [facility] Eosinophils Abs 0.0 0.0 - 0.4 x10(3)/[facility] Basophil % 0.1 % [facility] Baso Absolute 0.0 0.0 - 0.1 x10(3)/ L [facility] Immature Gran % 0.20 % [facility] Comment: Immature granulocytes(IG's)percentage and absolute count will include metamyelocytes, myelocytes, and promyelocytes. Blood smears from CBCs yielding IG's will be scanned manually for concordance. If this scan disagrees with the automated IG or if promyelocytes are noted, a manual differential will be performed. Immature Gran Absolute 0.02 0.00 - 0.04 x10(3)/ L [facility] Blood 07/27/2022 5:26 AM EDT 07/27/2022 5:31 AM EDT Narrative Resulting Agency Comment Spec In Lab Edwin England [place] [address] * (ABNORMAL) Hemogram (07/27/2022 5:26 AM EDT) White Blood Cell 9.6(H) 4.0 - 9.5 x10(3)/mc L [facility] Red Blood Cell 3.36(L) 4.58 - 5.54 x10(6)/mc L [facility] Hemoglobin 10.6(L) 13.7 - 16.5 g/dL [facility] Hematocrit 31.1(L) 40.5 - 48.5 % [facility] Mean Cell Volume 92.6 82.9 - 93.1 fL [facility] Mean Cell Hemoglobin 31.5 27.5 - 32.1 pg [facility] Mean Cell Hemoglobin Concentration 34.1 32.0 - 35.7 g/dL [facility] Platelet 92(L) 145 - 357 x10(3)/mc L [facility] RDW Standard Deviation 50.7(H) 36.0 - 45.0 fL [facility] RDW coefficient of variation 15.2(H) 11.4 - 13.8 % [facility] Mean Platelet Volume 10.3 7.6 - 12.9 fL [facility] NRBC% auto 0.0 % [facility] NRBC Absolute 0.000 0.000 - 0.000 x10(3)/ L [facility] Blood 07/27/2022 5:26 AM EDT 07/27/2022 5:31 AM EDT Narrative Resulting Agency Comment Spec In Lab Edwin England MD HEMATOLOGY ORDERABLE S Performing Organization Address City/[facility] Co de Phone Number [facility] [place] [address] * (ABNORMAL) CK (07/27/2022 5:26 AM EDT) Creatine Kinase 1,164(H) 0 - 200 unit/L [facility] Blood 07/27/2022 5:26 AM EDT 07/27/2022 5:31 AM EDT Narrative Resulting Agency Comment Spec In Lab Marco Dior MD CHEMISTRY ORDERABLES Performing Organization Address City/[facility]/ZIP Co de Phone Number [facility] [place] [address] * (ABNORMAL) Fibrinogen (07/27/2022 5:26 AM EDT) Fibrinogen 575(H) 200 - 393 mg/dL [facility] Comment: A fibrinogen level >100 mg/dL is adequate for hemostasis in most patients without underlying bleeding disorders. Blood 07/27/2022 5:26 AM EDT 07/27/2022 5:31 AM EDT Narrative Resulting Agency Comment Spec In Lab Marco Dior MD HEMATOLOGY ORDERABLE S Performing Organization Address [facility] de Phone Number [facility] [place] [address] * (ABNORMAL) APTT (07/27/2022 5:26 AM EDT) Partial Thromboplastin Time 38(H) 25 - 37 sec [facility] Comment: The PTT is NOT appropriate for heparin monitoring. Use the Anti-Xa level for heparin monitoring (HEP UFH) or LMWH monitoring (HEP LMW). A PTT less than 37 seconds generally indicates adequate hemostasis. Blood 07/27/2022 5:26 AM EDT 07/27/2022 5:31 AM EDT Narrative Resulting Agency Comment Spec In Lab Marco Dior MD HEMATOLOGY ORDERABLE S Performing Organization Address [facility] de Phone Number [facility] [place] [address] * (ABNORMAL) Comprehensive metabolic panel (non-fasting) (07/27/2022 5:26 AM EDT) Glucose 111 65 - 199 mg/dL [facility] Comment:Diabetes: >=200 mg/d L plus symptoms Blood Urea Nitrogen 12 10 - 20 mg/dL [facility] Creatinine 1.03 0.80 - 1.50 mg/dL [facility] Sodium 139 135 - 145 mmol/L [facility] Potassium 4.3 3.5 - 5.0 mmol/L [facility] Comment: Please note: ??Patients with WBC >100,000 may have falsely elevated Potassium levels. ??For accurate Potassium quantification in these patients send serum separator tube (gold top) for subsequent determinations. ??Contact the Clinical Chemistry Laboratory if there are any questions. Chloride 105 98 - 107 mmol/L [facility] Carbon Dioxide 25 22 - 31 mmol/L [facility] Anion Gap 9 5 - 15 mmol/L [facility] Calcium 8.5 8.5 - 10.5 mg/dL [facility] Protein, Total 5.7(L) 6.1 - 8.0 g/dL [facility] Albumin 3.1(L) 3.2 - 5.2 g/dL [facility] Aspartate Aminotransferase 44(H) 0 - 39 unit/L [facility] Alanine Aminotransferase 20 0 - 55 unit/L [facility] Alkaline Phosphatase 47 40 - 130 unit/L [facility] Bilirubin, Total 0.3 0.2 - 1.3 mg/dL [facility] Est Glomerular Filtration Rate 86 >=60 mL/min/1. 73 m?? [facility] Comment: This patient's estimated GFR was [...] In Lab Marco Dior MD CHEMISTRY ORDERABLES [facility] [place] [address] * (ABNORMAL) Differential, Automated (07/27/2022 12:37 AM EDT) Neutrophil % 84.3 % [facility] Neutrophil Absolute 8.52(H) 1.70 - 6.10 x10(3)/mc L [facility] Lymph % 9.1 % [facility] Lymphocytes Abs 0.9 0.9 - 3.2 x10(3)/mc L [facility] Monocyte % 6.2 % [facility] Monocyte Abs 0.6 0.3 - 0.9 x10(3)/ L [facility] Eos % 0.0 % [facility] Eosinophils Abs 0.0 0.0 - 0.4 x10(3)/ L [facility] Basophil % 0.1 % [facility] Baso Absolute 0.0 0.0 - 0.1 x10(3)/ L [facility] Immature Gran % 0.30 % [facility] Comment: Immature granulocytes(IG's)percentage and absolute count will include metamyelocytes, myelocytes, and promyelocytes. Blood smears from CBCs yielding IG's will be scanned manually for concordance. If this scan disagrees with the automated IG or if promyelocytes are noted, a manual differential will be performed. Immature Gran Absolute 0.03 0.00 - 0.04 x10(3)/ L [facility] Blood 07/27/2022 12:3 7 AM EDT 07/27/2022 12:51 AM EDT Narrative Resulting Agency Comment Spec In Lab Edwin England MD HEMATOLOGY ORDERABLE S [facility] [place] [address] * (ABNORMAL) Hemogram (07/27/2022 12:37 AM EDT) White Blood Cell 10.1(H) 4.0 - 9.5 x10(3)/mc L [facility] Red Blood Cell 3.42(L) 4.58 - 5.54 x10(6)/ L [facility] Hemoglobin 10.7(L) 13.7 - 16.5 g/dL [facility] Hematocrit 31.6(L) 40.5 - 48.5 % [facility] Mean Cell Volume 92.4 82.9 - 93.1 fL [facility] Mean Cell Hemoglobin 31.3 27.5 - 32.1 pg [facility] Mean Cell Hemoglobin Concentration 33.9 32.0 - 35.7 g/dL [facility] Platelet 99(L) 145 - 357 x10(3)/mc L [facility] RDW Standard Deviation 50.4(H) 36.0 - 45.0 fL [facility] RDW coefficient of variation 15.0(H) 11.4 - 13.8 % [facility] Mean Platelet Volume 10.2 7.6 - 12.9 fL [facility] NRBC% auto 0.0 % [facility] NRBC Absolute 0.000 0.000 - 0.000 x10(3)/mc L [facility] Blood 07/27/2022 12:3 7 AM EDT 07/27/2022 12:51 AM EDT Narrative Resulting Agency Comment Spec In Lab Edwin England MD HEMATOLOGY ORDERABLE S Performing Organization Address [facility]/ZIP Co de Phone Number [facility] [place] [address] * (ABNORMAL) Magnesium (07/27/2022 12:37 AM EDT) Magnesium 0.67(L) 0.69 - 1.07 mmol/L [facility] Blood 07/27/2022 12:3 7 AM EDT 07/27/2022 12:51 AM EDT Narrative Resulting Agency Comment Spec In Lab Marco Dior MD CHEMISTRY ORDERABLES Performing Organization Address [facility] Co de Phone Number [facility] [place] [address] * Phosphorus (07/27/2022 12:37 AM EDT) Phosphorus 2.8 2.5 - 4.5 mg/dL [facility] Blood 07/27/2022 12:3 7 AM EDT 07/27/2022 12:51 AM EDT Narrative Resulting Agency Comment Spec In Lab Marco Dior MD CHEMISTRY ORDERABLES Performing Organization Address [facility]/ZIP Co de Phone Number [facility] [place] [address] * (ABNORMAL) CK (07/27/2022 12:37 AM EDT) Creatine Kinase 1,266(H) 0 - 200 unit/L [facility] Blood 07/27/2022 12:3 7 AM EDT 07/27/2022 12:51 AM EDT Narrative Resulting Agency Comment Spec In Lab Marco Dior MD CHEMISTRY ORDERABLES Performing Organization Address City/[facility]/ZIP Co de Phone Number [facility] [place] [address] * (ABNORMAL) Fibrinogen (07/27/2022 12:37 AM EDT) Fibrinogen 533(H) 200 - 393 mg/dL [facility] Comment: A fibrinogen level >100 mg/dL is adequate for hemostasis in most patients without underlying bleeding disorders. Blood 07/27/2022 12:3 7 AM EDT 07/27/2022 12:51 AM EDT Narrative Resulting Agency Comment Spec In Lab Macro Dior MD HEMATOLOGY ORDERABLE S Performing Organization Address [facility] Co de Phone Number [facility] [place] [address] * APTT (07/27/2022 12:37 AM EDT) Partial Thromboplastin Time 34 25 - 37 sec [facility] Comment: The PTT is NOT appropriate for heparin monitoring. Use the Anti-Xa level for heparin monitoring (HEP UFH) or LMWH monitoring (HEP LMW). A PTT less than 37 seconds generally indicates adequate hemostasis. Blood 07/27/2022 12:3 7 AM EDT 07/27/2022 12:51 AM EDT Narrative Resulting Agency Comment Spec In Lab Marco Dior MD HEMATOLOGY ORDERABLE S Performing Organization Address City/[facility]/ZIP Co de Phone Number [facility] [place] [address] * (ABNORMAL) Comprehensive metabolic panel (non-fasting) (07/27/2022 12:37 AM EDT) Glucose 112 65 - 199 mg/dL [facility] Comment:Diabetes: >=200 mg/d L plus symptoms Blood Urea Nitrogen 12 10 - 20 mg/dL [facility] Creatinine 1.12 0.80 - 1.50 mg/dL [facility] Sodium 138 135 - 145 mmol/L [facility] Potassium 3.8 3.5 - 5.0 mmol/L [facility] Comment: Please note: ??Patients with WBC >100,000 may have falsely elevated Potassium levels. ??For accurate Potassium quantification in these patients send serum separator tube (gold top) for subsequent determinations. ??Contact the Clinical Chemistry Laboratory if there are any questions. Chloride 103 98 - 107 mmol/L [facility] Carbon Dioxide 24 22 - 31 mmol/L [facility] Anion Gap 11 5 - 15 mmol/L [facility] Calcium 8.5 8.5 - 10.5 mg/dL [facility] Protein, Total 5.6(L) 6.1 - 8.0 g/dL [facility] Albumin 3.1(L) 3.2 - 5.2 g/dL [facility] Aspartate Aminotransferase 47(H) 0 - 39 unit/L [facility] Alanine Aminotransferase 22 0 - 55 unit/L [facility] Alkaline Phosphatase 49 40 - 130 unit/L [facility] Bilirubin, Total 0.3 0.2 - 1.3 mg/dL [facility] Est Glomerular Filtration Rate 78 >=60 mL/min/1. 73 m?? [facility] Comment: This patient's estimated GFR was [...] In Lab Marco Dior [place] [address] * Gold Tube HOLD (07/26/2022 5:35 PM EDT) Gold Hold Sample in lab. [facility] Blood Venous Draw / Unknown 07/26/2022 5:35 PM EDT 07/26/2022 5:43 PM EDT Edwin England [place] [address] * (ABNORMAL) Differential, Automated (07/26/2022 5:35 PM EDT) Neutrophil % 89.3 % [facility] Neutrophil Absolute 8.32(H) 1.70 - 6.10 x10(3)/mc L [facility] Lymph % 6.2 % [facility] Lymphocytes Abs 0.6(L) 0.9 - 3.2 x10(3)/mc L [facility] Monocyte % 4.0 % [facility] Monocyte Abs 0.4 0.3 - 0.9 x10(3)/mc L [facility] Eos % 0.0 % [facility] Eosinophils Abs 0.0 0.0 - 0.4 x10(3)/mc L [facility] Basophil % 0.1 % [facility] Baso Absolute 0.0 0.0 - 0.1 x10(3)/mc L [facility] Immature Gran % 0.40 % [facility] Comment: Immature granulocytes(IG's)percentage and absolute count will include metamyelocytes, myelocytes, and promyelocytes. Blood smears from CBCs yielding IG's will be scanned manually for concordance. If this scan disagrees with the automated IG or if promyelocytes are noted, a manual differential will be performed. Immature Gran Absolute 0.04 0.00 - 0.04 x10(3)/mc L [facility] Blood 07/26/2022 5:35 PM EDT 07/26/2022 5:42 PM EDT Narrative Resulting Agency Comment Spec In Lab Edwin England MD HEMATOLOGY ORDERABLE S [facility] [place] [address] * (ABNORMAL) Hemogram (07/26/2022 5:35 PM EDT) White Blood Cell 9.3 4.0 - 9.5 x10(3)/mc L [facility] Red Blood Cell 3.53(L) 4.58 - 5.54 x10(6)/mc L [facility] Hemoglobin 11.0(L) 13.7 - 16.5 g/dL [facility] Hematocrit 33.0(L) 40.5 - 48.5 % [facility] Mean Cell Volume 93.5(H) 82.9 - 93.1 fL [facility] LABORATORY Mean Cell Hemoglobin 31.2 27.5 - 32.1 pg [facility] Mean Cell Hemoglobin Concentration 33.3 32.0 - 35.7 g/dL [facility] Platelet 105(L) 145 - 357 x10(3)/mc L [facility] RDW Standard Deviation 51.6(H) 36.0 - 45.0 fL [facility] RDW coefficient of variation 14.9(H) 11.4 - 13.8 % [facility] Mean Platelet Volume 10.1 7.6 - 12.9 fL [facility] NRBC% auto 0.0 % [facility] NRBC Absolute 0.000 0.000 - 0.000 x10(3)/mc L [facility] Blood 07/26/2022 5:35 PM EDT 07/26/2022 5:42 PM EDT Narrative Resulting Agency Comment Spec In Lab Edwin England MD HEMATOLOGY ORDERABLE S Performing Organization Address City/[facility]/ZIP Co de Phone Number [facility] [place] [address] * (ABNORMAL) CK (07/26/2022 5:35 PM EDT) Creatine Kinase 1,303(H) 0 - 200 unit/L [facility] Blood 07/26/2022 5:35 PM EDT 07/26/2022 5:42 PM EDT Narrative Resulting Agency Comment Spec In Lab Marco Dior MD CHEMISTRY ORDERABLES Performing Organization Address City/[facility]/ZIP Co de Phone Number [facility] [place] [address] * (ABNORMAL) Fibrinogen (07/26/2022 5:35 PM EDT) Fibrinogen 486(H) 200 - 393 mg/dL [facility] Comment: A fibrinogen level >100 mg/dL is adequate for hemostasis in most patients without underlying bleeding disorders. Blood 07/26/2022 5:35 PM EDT 07/26/2022 5:42 PM EDT Narrative Resulting Agency Comment Spec In Lab Marco Dior MD HEMATOLOGY ORDERABLE S Performing Organization Address [facility] Co de Phone Number [facility] [place] [address] * APTT (07/26/2022 5:35 PM EDT) Partial Thromboplastin Time 35 25 - 37 sec [facility] Comment: The PTT is NOT appropriate for heparin monitoring. Use the Anti-Xa level for heparin monitoring (HEP UFH) or LMWH monitoring (HEP LMW). A PTT less than 37 seconds generally indicates adequate hemostasis. Blood 07/26/2022 5:35 PM EDT 07/26/2022 5:42 PM EDT Narrative Resulting Agency Comment Spec In Lab Marco Dior MD HEMATOLOGY ORDERABLE S Performing Organization Address City/[facility] Co de Phone Number [facility] [place] [address] * (ABNORMAL) Comprehensive metabolic panel (non-fasting) (07/26/2022 5:35 PM EDT) Glucose 130 65 - 199 mg/dL [facility] Comment:Diabetes: >=200 mg/d L plus symptoms Blood Urea Nitrogen 11 10 - 20 mg/dL [facility] Creatinine 1.10 0.80 - 1.50 mg/dL [facility] Sodium 138 135 - 145 mmol/L [facility] Potassium 4.0 3.5 - 5.0 mmol/L [facility] Comment: Please note: ??Patients with WBC >100,000 may have falsely elevated Potassium levels. ??For accurate Potassium quantification in these patients send serum separator tube (gold top) for subsequent determinations. ??Contact the Clinical Chemistry Laboratory if there are any questions. Chloride 104 98 - 107 mmol/L [facility] Carbon Dioxide 24 22 - 31 mmol/L [facility] Anion Gap 10 5 - 15 mmol/L [facility] Calcium 8.4(L) 8.5 - 10.5 mg/dL [facility] Protein, Total 5.5(L) 6.1 - 8.0 g/dL [facility] Albumin 3.1(L) 3.2 - 5.2 g/dL [facility] Aspartate Aminotransferase 45(H) 0 - 39 unit/L [facility] Alanine Aminotransferase 23 0 - 55 unit/L [facility] Alkaline Phosphatase 47 40 - 130 unit/L [facility] Bilirubin, Total 0.3 0.2 - 1.3 mg/dL [facility] Est Glomerular Filtration Rate 80 >=60 mL/min/1. 73 m?? [facility] Comment: This patient's estimated GFR was [...] In Lab Marco Dior [place] [address] * Gold Tube HOLD (07/26/2022 11:55 AM EDT) Gold Hold Sample in lab. [facility] Blood Venous Draw / Unknown 07/26/2022 11:55 AM EDT 07/26/2022 12:12 PM EDT Edwin England [place] [address] * (ABNORMAL) Differential, Automated (07/26/2022 11:55 AM EDT) Neutrophil % 87.1 % [facility] Neutrophil Absolute 7.48(H) 1.70 - 6.10 x10(3)/mc L [facility] Lymph % 7.4 % [facility] Lymphocytes Abs 0.6(L) 0.9 - 3.2 x10(3)/mc L [facility] Monocyte % 5.2 % [facility] Monocyte Abs 0.4 0.3 - 0.9 x10(3)/mc L [facility] Eos % 0.0 % [facility] Eosinophils Abs 0.0 0.0 - 0.4 x10(3)/mc L [facility] Basophil % 0.1 % [facility] Baso Absolute 0.0 0.0 - 0.1 x10(3)/mc L [facility] Immature Gran % 0.20 % [facility] Comment: Immature granulocytes(IG's)percentage and absolute count will include metamyelocytes, myelocytes, and promyelocytes. Blood smears from CBCs yielding IG's will be scanned manually for concordance. If this scan disagrees with the automated IG or if promyelocytes are noted, a manual differential will be performed. Immature Gran Absolute 0.02 0.00 - 0.04 x10(3)/mc L [facility] Blood 07/26/2022 11:5 5 AM EDT 07/26/2022 12:11 PM EDT Narrative Resulting Agency Comment Spec In Lab Edwin England MD HEMATOLOGY ORDERABLE S [facility] [place] [address] * (ABNORMAL) Hemogram (07/26/2022 11:55 AM EDT) White Blood Cell 8.6 4.0 - 9.5 x10(3)/mc L [facility] Red Blood Cell 3.58(L) 4.58 - 5.54 x10(6)/mc L [facility] Hemoglobin 11.1(L) 13.7 - 16.5 g/dL [facility] Hematocrit 33.1(L) 40.5 - 48.5 % [facility] Mean Cell Volume 92.5 82.9 - 93.1 fL [facility] Mean Cell Hemoglobin 31.0 27.5 - 32.1 pg [facility] Mean Cell Hemoglobin Concentration 33.5 32.0 - 35.7 g/dL [facility] Platelet 105(L) 145 - 357 x10(3)/mc L [facility] RDW Standard Deviation 49.8(H) 36.0 - 45.0 fL [facility] RDW coefficient of variation 14.8(H) 11.4 - 13.8 % [facility] Mean Platelet Volume 10.4 7.6 - 12.9 fL [facility] NRBC% auto 0.0 % [facility] NRBC Absolute 0.000 0.000 - 0.000 x10(3)/mc L [facility] Blood 07/26/2022 11:5 5 AM EDT 07/26/2022 12:11 PM EDT Narrative Resulting Agency Comment Spec In Lab Edwin England MD HEMATOLOGY ORDERABLE S [facility] [place] [address] * (ABNORMAL) CK (07/26/2022 11:55 AM EDT) Creatine Kinase 1,090(H) 0 - 200 unit/L [facility] Blood 07/26/2022 11:5 5 AM EDT 07/26/2022 12:11 PM EDT Narrative Resulting Agency Comment Spec In Lab Marco Dior MD CHEMISTRY ORDERABLES Performing Organization Address City/[facility] Co de Phone Number [facility] [place] [address] * (ABNORMAL) Fibrinogen (07/26/2022 11:55 AM EDT) Fibrinogen 421(H) 200 - 393 mg/dL [facility] Comment: A fibrinogen level >100 mg/dL is adequate for hemostasis in most patients without underlying bleeding disorders. Blood 07/26/2022 11:5 5 AM EDT 07/26/2022 12:11 PM EDT Narrative Resulting Agency Comment Spec In Lab Marco Dior MD HEMATOLOGY ORDERABLE S Performing Organization Address [facility] Co de Phone Number [facility] [place] [address] * APTT (07/26/2022 11:55 AM EDT) Partial Thromboplastin Time 34 25 - 37 sec [facility] Comment: The PTT is NOT appropriate for heparin monitoring. Use the Anti-Xa level for heparin monitoring (HEP UFH) or LMWH monitoring (HEP LMW). A PTT less than 37 seconds generally indicates adequate hemostasis. Blood 07/26/2022 11:5 5 AM EDT 07/26/2022 12:11 PM EDT Narrative Resulting Agency Comment Spec In Lab Marco Dior MD HEMATOLOGY ORDERABLE S Performing Organization Address City/[facility] Co de Phone Number [facility] [place] [address] * (ABNORMAL) Comprehensive metabolic panel (non-fasting) (07/26/2022 11:55 AM EDT) Glucose 132 65 - 199 mg/dL [facility] Comment:Diabetes: >=200 mg/d L plus symptoms Blood Urea Nitrogen 11 10 - 20 mg/dL [facility] Creatinine 0.98 0.80 - 1.50 mg/dL [facility] Sodium 136 135 - 145 mmol/L [facility] Potassium 4.2 3.5 - 5.0 mmol/L [facility] Comment: Please note: ??Patients with WBC >100,000 may have falsely elevated Potassium levels. ??For accurate Potassium quantification in these patients send serum separator tube (gold top) for subsequent determinations. ??Contact the Clinical Chemistry Laboratory if there are any questions. Chloride 103 98 - 107 mmol/L [facility] Carbon Dioxide 23 22 - 31 mmol/L [facility] Anion Gap 10 5 - 15 mmol/L [facility] Calcium 7.9(L) 8.5 - 10.5 mg/dL [facility] Protein, Total 5.2(L) 6.1 - 8.0 g/dL [facility] Albumin 3.1(L) 3.2 - 5.2 g/dL [facility] Aspartate Aminotransferase Not Perf 0 - 39 [facility] Comment: Unable to quantitate due to sample hemolysis. ??Sample redraw suggested. Called by: YC, Read back by: ??Miladys King, Date/Time:07/26/22 13:56. Alanine Aminotransferase 22 0 - 55 unit/L [facility] Alkaline Phosphatase 47 40 - 130 unit/L [facility] Bilirubin, Total 0.4 0.2 - 1.3 mg/dL [facility] Est Glomerular Filtration Rate 92 >=60 mL/min/1. 73 m?? [facility] Comment: This patient's estimated GFR was [...] Dior MD CHEMISTRY ORDERABLES Performing Organization Address City/[facility]/[place] [address] * (ABNORMAL) Differential, Automated (07/26/2022 10:30 AM EDT) Neutrophil % 80.5 % [facility] Neutrophil Absolute 7.98(H) 1.70 - 6.10 x10(3)/mc L [facility] Lymph % 14.0 % [facility] Lymphocytes Abs 1.4 0.9 - 3.2 x10(3)/mc L [facility] Monocyte % 4.9 % [facility] Monocyte Abs 0.5 0.3 - 0.9 x10(3)/mc L [facility] Eos % 0.1 % [facility] Eosinophils Abs 0.0 0.0 - 0.4 x10(3)/mc L [facility] Basophil % 0.1 % [facility] Baso Absolute 0.0 0.0 - 0.1 x10(3)/mc L [facility] Immature Gran % 0.40 % [facility] Comment: Immature granulocytes(IG's)percentage and absolute count will include metamyelocytes, myelocytes, and promyelocytes. Blood smears from CBCs yielding IG's will be scanned manually for concordance. If this scan disagrees with the automated IG or if promyelocytes are noted, a manual differential will be performed. Immature Gran Absolute 0.04 0.00 - 0.04 x10(3)/mc L [facility] Blood 07/26/2022 10:3 0 AM EDT 07/26/2022 10:46 AM EDT Narrative Resulting Agency Comment Spec In Lab Edwin England MD HEMATOLOGY ORDERABLE S Performing Organization Address City/[facility]/ZIP Co de Phone Number [facility] [place] [address] * (ABNORMAL) Hemogram (07/26/2022 10:30 AM EDT) White Blood Cell 9.9(H) 4.0 - 9.5 x10(3)/mc L [facility] Red Blood Cell 3.91(L) 4.58 - 5.54 x10(6)/mc L [facility] Hemoglobin 12.2(L) 13.7 - 16.5 g/dL [facility] Hematocrit 36.3(L) 40.5 - 48.5 % [facility] Mean Cell Volume 92.8 82.9 - 93.1 fL [facility] Mean Cell Hemoglobin 31.2 27.5 - 32.1 pg [facility] Mean Cell Hemoglobin Concentration 33.6 32.0 - 35.7 g/dL [facility] Platelet 108(L) 145 - 357 x10(3)/mc L [facility] RDW Standard Deviation 50.6(H) 36.0 - 45.0 fL [facility] RDW coefficient of variation 14.8(H) 11.4 - 13.8 % [facility] Mean Platelet Volume 10.5 7.6 - 12.9 fL [facility] NRBC% auto 0.0 % [facility] NRBC Absolute 0.000 0.000 - 0.000 x10(3)/ L [facility] Blood 07/26/2022 10:3 0 AM EDT 07/26/2022 10:46 AM EDT Narrative Resulting Agency Comment Spec In Lab Edwin England MD HEMATOLOGY ORDERABLE S [facility] [place] [address] * (ABNORMAL) Fibrinogen (07/26/2022 10:30 AM EDT) Fibrinogen 438(H) 200 - 393 mg/dL [facility] Comment: A fibrinogen level >100 mg/dL is adequate for hemostasis in most patients without underlying bleeding disorders. Blood 07/26/2022 10:3 0 AM EDT 07/26/2022 10:46 AM EDT Narrative Resulting Agency Comment Spec In Lab Marco Dior MD HEMATOLOGY ORDERABLE S Performing Organization Address City/[facility] Co de Phone Number [facility] [place] [address] * APTT (07/26/2022 10:30 AM EDT) Partial Thromboplastin Time 35 25 - 37 sec [facility] Comment: The PTT is NOT appropriate for heparin monitoring. Use the Anti-Xa level for heparin monitoring (HEP UFH) or LMWH monitoring (HEP LMW). A PTT less than 37 seconds generally indicates adequate hemostasis. Blood 07/26/2022 10:3 0 AM EDT 07/26/2022 10:46 AM EDT Narrative Resulting Agency Comment Spec In Lab Marco Dior MD HEMATOLOGY ORDERABLE S Performing Organization Address [facility] de Phone Number [facility] [place] [address] * (ABNORMAL) Prothrombin Time (07/26/2022 10:30 AM EDT) Prothrombin Time 13.3(H) 9.4 - 12.5 sec [facility] International Normalization Ratio 1.2 [facility] Comment: An INR <2.0 indicates adequate [...] MD HEMATOLOGY ORDERABLE S Performing Organization Address [facility] Co de Phone Number [facility] [place] [address] * (ABNORMAL) CK (07/26/2022 10:30 AM EDT) Creatine Kinase 1,139(H) 0 - 200 unit/L [facility] Blood 07/26/2022 10:3 0 AM EDT 07/26/2022 10:46 AM EDT Narrative Resulting Agency Comment Spec In Lab Marco Dior MD CHEMISTRY ORDERABLES [facility] [place] [address] * (ABNORMAL) Comprehensive metabolic panel (non-fasting) (07/26/2022 10:30 AM EDT) Glucose 132 65 - 199 mg/dL [facility] Comment:Diabetes: >=200 mg/d L plus symptoms Blood Urea Nitrogen 11 10 - 20 mg/dL [facility] Creatinine 0.96 0.80 - 1.50 mg/dL [facility] Sodium 136 135 - 145 mmol/L [facility] Potassium 4.0 3.5 - 5.0 mmol/L [facility] Comment: Please note: ??Patients with WBC >100,000 may have falsely elevated Potassium levels. ??For accurate Potassium quantification in these patients send serum separator tube (gold top) for subsequent determinations. ??Contact the Clinical Chemistry Laboratory if there are any questions. Chloride 104 98 - 107 mmol/L [facility] Carbon Dioxide 22 22 - 31 mmol/L [facility] Anion Gap 10 5 - 15 mmol/L [facility] Calcium 8.2(L) 8.5 - 10.5 mg/dL [facility] Protein, Total 5.6(L) 6.1 - 8.0 g/dL [facility] Albumin 3.3 3.2 - 5.2 g/dL [facility] Aspartate Aminotransferase Not Perf 0 - 39 [facility] Comment: Unable to quantitate due to sample hemolysis. ??Sample redraw suggested. Called by: SULY, Read back by: Miladys King, Date/Time:07/26/22 11:28. Alanine Aminotransferase 25 0 - 55 unit/L [facility] Alkaline Phosphatase 53 40 - 130 unit/L [facility] Bilirubin, Total 0.5 0.2 - 1.3 mg/dL [facility] Est Glomerular Filtration Rate 94 >=60 mL/min/1. 73 m?? [facility] Comment: This patient's estimated GFR [...] Dior MD CHEMISTRY ORDERABLES Performing Organization Address City/State/[facility] Co de Phone Number [facility] [place] [address] * (ABNORMAL) BLOOD GAS 2 ARTERIAL (07/26/2022 10:29 AM EDT) pH, Arterial 7.35 7.35 - 7.45 [facility] PCO2, Arterial 43 35 - 45 mmHg [facility] PO2, Arterial 64(L) 85 - 104 mmHg [facility] Bicarbonate, Arterial 23.4 20.0 - 26.0 mmol/L [facility] Base Excess, Arterial -2.3 -3.0 - 3.0 mmol/L [facility] Hgb Blood Gas 13.3(L) 13.7 - 16.5 g/dL [facility] Oxyhemoglobin, Arterial 90.9(L) 94.0 - 97.0 % [facility] Carboxyhemoglob in, Arterial 0.2 % [facility] Comment: Nonsmokers: 0.5-1.5% COHB Smokers: Variable, but usually less than 10% Toxic: 20-30% COHB Lethal: Greater than 60% COHB Methemoglobin, Arterial 0.5 <=1.5 % [facility] Na Whole Blood 135 135 - 145 mmol/L [facility] K Whole Blood 3.8 3.5 - 5.0 mmol/L [facility] Comment: Please note: Patients with WBC >100,000 may have falsely elevated Potassium levels. Contact the Clinical Chemistry Laboratory if there are any questions. ICa Whole Blood 1.12(L) 1.15 - 1.33 mmol/L [facility] Comment: Note: ??Total bilirubin higher than 20 mg/dL may lead to falsely low ionized calcium. CL Whole Blood 104 98 - 107 mmol/L [facility] Gluc Whole Bld 127 65 - 199 mg/dL [facility] Comment:Diabetes: >=200 mg/d L plus symptoms. Lactate WB 1.8 0.5 - 2.2 mmol/L [facility] Flow Art 6.0 LPM [facility] Blood 07/26/2022 10:2 9 AM EDT 07/26/2022 10:29 AM EDT Marco Dior MD POINT OF CARE TEST O RDERABLES Performing Organization Address City/State/[facility] Co de Phone Number [facility] [place] [address] * (ABNORMAL) BLOOD GAS 2 ARTERIAL (07/26/2022 8:12 AM EDT) pH, Arterial 7.38 7.35 - 7.45 [facility] PCO2, Arterial 37 35 - 45 mmHg [facility] PO2, Arterial 100 85 - 104 mmHg [facility] Bicarbonate, Arterial 21.5 20.0 - 26.0 mmol/L [facility] Base Excess, Arterial -3.6(L) -3.0 - 3.0 mmol/L [facility] Hgb Blood Gas 12.2(L) 13.7 - 16.5 g/dL [facility] Oxyhemoglobin, Arterial 96.3 94.0 - 97.0 % [facility] Carboxyhemoglob in, Arterial 1.3 % [facility] Comment: Nonsmokers: 0.5-1.5% COHB Smokers: Variable, but usually less than 10% Toxic: 20-30% COHB Lethal: Greater than 60% COHB Methemoglobin, Arterial 0.3 <=1.5 % [facility] Na Whole Blood 134(L) 135 - 145 mmol/L [facility] K Whole Blood 3.8 3.5 - 5.0 mmol/L [facility] Comment: Please note: Patients with WBC >100,000 may have falsely elevated Potassium levels. Contact the Clinical Chemistry Laboratory if there are any questions. ICa Whole Blood 1.10(L) 1.15 - 1.33 mmol/L [facility] Comment: Note: ??Total bilirubin higher than 20 mg/dL may lead to falsely low ionized calcium. CL Whole Blood 102 98 - 107 mmol/L [facility] Gluc Whole Bld 109 65 - 199 mg/dL [facility] Comment:Diabetes: >=200 mg/d L plus symptoms. Lactate WB 0.8 0.5 - 2.2 mmol/L [facility] Blood 07/26/2022 8:12 AM EDT 07/26/2022 8:12 AM EDT Marco Dior MD POINT OF CARE TEST O RDERABLES Performing Organization Address City/State/[facility] Co de Phone Number [facility] [place] [address] * CT Angiogram Aortic Lower Extremity Runoff [...] who have questions please contact the health wound care rn that requested your imaging first. ? Narrative 07/26/2022 7:58 AM EDT EXAMINATION: CT [...] graft the infrarenal aorta to the bilateral ACCOUNTS RECEIVABLE CLERK bifurcations; LEFT limb of the graft from [...] patients who have questions please contactthe health wound care rn that requested your imaging first. Marco Dior MD IMG CT ORDERABLES * (ABNORMAL) BLOOD GAS 2 ARTERIAL (07/26/2022 4:10 AM EDT) pH, Arterial 7.44 7.35 - 7.45 [facility] PCO2, Arterial 38 35 - 45 mmHg [facility] PO2, Arterial 65(L) 85 - 104 mmHg [facility] Bicarbonate, Arterial 25.1 20.0 - 26.0 mmol/L [facility] Base Excess, Arterial 0.9 -3.0 - 3.0 mmol/L [facility] Hgb Blood Gas 13.4(L) 13.7 - 16.5 g/dL [facility] Oxyhemoglobin, Arterial 92.4(L) 94.0 - 97.0 % [facility] Carboxyhemoglob in, Arterial 0.1 % [facility] Comment: Nonsmokers: 0.5-1.5% COHB Smokers: Variable, but usually less than 10% Toxic: 20-30% COHB Lethal: Greater than 60% COHB Methemoglobin, Arterial 0.6 <=1.5 % [facility] Na Whole Blood 135 135 - 145 mmol/L [facility] K Whole Blood 3.7 3.5 - 5.0 mmol/L [facility] Comment: Please note: Patients with WBC >100,000 may have falsely elevated Potassium levels. Contact the Clinical Chemistry Laboratory if there are any questions. ICa Whole Blood 1.13(L) 1.15 - 1.33 mmol/L [facility] Comment: Note: ??Total bilirubin higher than 20 mg/dL may lead to falsely low ionized calcium. CL Whole Blood 104 98 - 107 mmol/L [facility] Gluc Whole Bld 130 65 - 199 mg/dL [facility] Comment:Diabetes: >=200 mg/d L plus symptoms. Lactate WB 1.3 0.5 - 2.2 mmol/L [facility] Flow Art 6.0 LPM [facility] Blood 07/26/2022 4:10 AM EDT 07/26/2022 4:10 AM EDT Marco Dior MD POINT OF CARE TEST O RDERABLES Performing Organization Address City/State/[facility] Co de Phone Number [facility] [place] [address] * (ABNORMAL) Differential, Automated (07/26/2022 2:10 AM EDT) Neutrophil % 83.2 % [facility] Neutrophil Absolute 6.48(H) 1.70 - 6.10 x10(3)/mc L [facility] Lymph % 10.4 % [facility] Lymphocytes Abs 0.8(L) 0.9 - 3.2 x10(3)/mc L [facility] Monocyte % 6.0 % [facility] Monocyte Abs 0.5 0.3 - 0.9 x10(3)/mc L [facility] Eos % 0.0 % [facility] Eosinophils Abs 0.0 0.0 - 0.4 x10(3)/mc L [facility] Basophil % 0.0 % [facility] Baso Absolute 0.0 0.0 - 0.1 x10(3)/mc L [facility] Immature Gran % 0.40 % [facility] Comment: Immature granulocytes(IG's)percentage and absolute count will include metamyelocytes, myelocytes, and promyelocytes. Blood smears from CBCs yielding IG's will be scanned manually for concordance. If this scan disagrees with the automated IG or if promyelocytes are noted, a manual differential will be performed. Immature Gran Absolute 0.03 0.00 - 0.04 x10(3)/mc L [facility] Blood 07/26/2022 2:10 AM EDT 07/26/2022 2:31 AM EDT Narrative Resulting Agency Comment Spec In Lab Edwin England MD HEMATOLOGY ORDERABLE S [facility] [place] [address] * (ABNORMAL) Hemogram (07/26/2022 2:10 AM EDT) White Blood Cell 7.8 4.0 - 9.5 x10(3)/mc L [facility] Red Blood Cell 3.95(L) 4.58 - 5.54 x10(6)/[facility] Hemoglobin 12.4(L) 13.7 - 16.5 g/dL [facility] Hematocrit 36.3(L) 40.5 - 48.5 % [facility] Mean Cell Volume 91.9 82.9 - 93.1 fL [facility] Mean Cell Hemoglobin 31.4 27.5 - 32.1 pg [facility] Mean Cell Hemoglobin Concentration 34.2 32.0 - 35.7 g/dL [facility] Platelet 111(L) 145 - 357 x10(3)/mc L [facility] RDW Standard Deviation 49.3(H) 36.0 - 45.0 fL [facility] RDW coefficient of variation 14.6(H) 11.4 - 13.8 % [facility] Mean Platelet Volume 9.9 7.6 - 12.9 fL [facility] NRBC% auto 0.0 % [facility] NRBC Absolute 0.000 0.000 - 0.000 x10(3)/mc L [facility] Blood 07/26/2022 2:10 AM EDT 07/26/2022 2:31 AM EDT Narrative Resulting Agency Comment Spec In Lab Edwin England MD HEMATOLOGY ORDERABLE S Performing Organization Address City/[facility]/ZIP Co de Phone Number [facility] [place] [address] * Magnesium (07/26/2022 2:10 AM EDT) Magnesium 0.73 0.69 - 1.07 mmol/L [facility] Blood 07/26/2022 2:10 AM EDT 07/26/2022 2:31 AM EDT Narrative Resulting Agency Comment Spec In Lab Marco Dior MD CHEMISTRY ORDERABLES Performing Organization Address [facility] Co de Phone Number [facility] [place] [address] * (ABNORMAL) CK (07/26/2022 2:10 AM EDT) Creatine Kinase 833(H) 0 - 200 unit/L [facility] Blood 07/26/2022 2:10 AM EDT 07/26/2022 2:31 AM EDT Narrative Resulting Agency Comment Spec In Lab Marco Dior MD CHEMISTRY ORDERABLES Performing Organization Address [facility] Co de Phone Number [facility] [place] [address] * Fibrinogen (07/26/2022 2:10 AM EDT) Fibrinogen 388 200 - 393 mg/dL [facility] Comment: A fibrinogen level >100 mg/dL is adequate for hemostasis in most patients without underlying bleeding disorders. Blood 07/26/2022 2:10 AM EDT 07/26/2022 2:31 AM EDT Narrative Resulting Agency Comment Spec In Lab Marco Dior MD HEMATOLOGY ORDERABLE S Performing Organization Address City/[facility] Co de Phone Number [facility] [place] [address] * APTT (07/26/2022 2:10 AM EDT) Partial Thromboplastin Time 32 25 - 37 sec [facility] Comment: The PTT is NOT appropriate for heparin monitoring. Use the Anti-Xa level for heparin monitoring (HEP UFH) or LMWH monitoring (HEP LMW). A PTT less than 37 seconds generally indicates adequate hemostasis. Blood 07/26/2022 2:10 AM EDT 07/26/2022 2:31 AM EDT Narrative Resulting Agency Comment Spec In Lab Marco Dior MD HEMATOLOGY ORDERABLE S [facility] [place] [address] * (ABNORMAL) Comprehensive metabolic panel (non-fasting) (07/26/2022 2:10 AM EDT) Glucose 145 65 - 199 mg/dL [facility] Comment:Diabetes: >=200 mg/d L plus symptoms Blood Urea Nitrogen 12 10 - 20 mg/dL [facility] Creatinine 0.99 0.80 - 1.50 mg/dL [facility] Sodium 139 135 - 145 mmol/L [facility] Potassium 4.2 3.5 - 5.0 mmol/L [facility] Comment: Please note: ??Patients with WBC >100,000 may have falsely elevated Potassium levels. ??For accurate Potassium quantification in these patients send serum separator tube (gold top) for subsequent determinations. ??Contact the Clinical Chemistry Laboratory if there are any questions. Chloride 105 98 - 107 mmol/L [facility] Carbon Dioxide 24 22 - 31 mmol/L [facility] Anion Gap 10 5 - 15 mmol/L [facility] Calcium 8.4(L) 8.5 - 10.5 mg/dL [facility] Protein, Total 5.6(L) 6.1 - 8.0 g/dL [facility] Albumin 3.3 3.2 - 5.2 g/dL [facility] Aspartate Aminotransferase 49(H) 0 - 39 unit/L [facility] Alanine Aminotransferase 24 0 - 55 unit/L [facility] Alkaline Phosphatase 53 40 - 130 unit/L [facility] Bilirubin, Total 0.3 0.2 - 1.3 mg/dL [facility] Est Glomerular Filtration Rate 91 >=60 mL/min/1. 73 m?? [facility] Comment: This patient's estimated GFR [...] Dior MD CHEMISTRY ORDERABLES Performing Organization Address [facility] Co de Phone Number [facility] [place] [address] * Electrolytes panel (07/26/2022 2:10 AM EDT) Sodium 139 135 - 145 mmol/L [facility] Potassium 4.2 3.5 - 5.0 mmol/L [facility] Comment: Please note: ??Patients with WBC >100,000 may have falsely elevated Potassium levels. ??For accurate Potassium quantification in these patients send serum separator tube (gold top) for subsequent determinations. ??Contact the Clinical Chemistry Laboratory if there are any questions. Chloride 105 98 - 107 mmol/L [facility] Carbon Dioxide 24 22 - 31 mmol/L [facility] Anion Gap 10 5 - 15 mmol/L [facility] Blood 07/26/2022 2:10 AM EDT 07/26/2022 2:31 AM EDT Narrative Resulting Agency Comment Spec In Lab Marco Dior MD CHEMISTRY ORDERABLES Performing Organization Address [facility] Co de Phone Number [facility] [place] [address] * (ABNORMAL) BLOOD GAS 2 ARTERIAL (07/26/2022 2:08 AM EDT) pH, Arterial 7.42 7.35 - 7.45 [facility] PCO2, Arterial 37 35 - 45 mmHg [facility] PO2, Arterial 71(L) 85 - 104 mmHg [facility] Bicarbonate, Arterial 23.3 20.0 - 26.0 mmol/L [facility] Base Excess, Arterial -1.2 -3.0 - 3.0 mmol/L [facility] Hgb Blood Gas 13.5(L) 13.7 - 16.5 g/dL [facility] Oxyhemoglobin, Arterial 93.6(L) 94.0 - 97.0 % [facility] Carboxyhemoglob in, Arterial 0.3 % [facility] Comment: Nonsmokers: 0.5-1.5% COHB Smokers: Variable, but usually less than 10% Toxic: 20-30% COHB Lethal: Greater than 60% COHB Methemoglobin, Arterial 0.7 <=1.5 % [facility] Na Whole Blood 136 135 - 145 mmol/L [facility] K Whole Blood 4.0 3.5 - 5.0 mmol/L [facility] Comment: Please note: Patients with WBC >100,000 may have falsely elevated Potassium levels. Contact the Clinical Chemistry Laboratory if there are any questions. ICa Whole Blood 1.13(L) 1.15 - 1.33 mmol/L [facility] Comment: Note: ??Total bilirubin higher than 20 mg/dL may lead to falsely low ionized calcium. CL Whole Blood 104 98 - 107 mmol/L [facility] Gluc Whole Bld 137 65 - 199 mg/dL [facility] Comment:Diabetes: >=200 mg/d L plus symptoms. Lactate WB 1.7 0.5 - 2.2 mmol/L [facility] Flow Art 6.0 LPM [facility] Blood 07/26/2022 2:08 AM EDT 07/26/2022 2:08 AM EDT Marco Dior MD POINT OF CARE TEST O RDERABLES [facility] [place] [address] * (ABNORMAL) BLOOD GAS 2 ARTERIAL (07/25/2022 10:44 PM EDT) pH, Arterial 7.42 7.35 - 7.45 [facility] PCO2, Arterial 35 35 - 45 mmHg [facility] PO2, Arterial 73(L) 85 - 104 mmHg [facility] Bicarbonate, Arterial 21.9 20.0 - 26.0 mmol/L [facility] Base Excess, Arterial -2.7 -3.0 - 3.0 mmol/L [facility] Hgb Blood Gas 13.4(L) 13.7 - 16.5 g/dL [facility] Oxyhemoglobin, Arterial 93.8(L) 94.0 - 97.0 % [facility] Carboxyhemoglob in, Arterial 0.5 % [facility] Comment: Nonsmokers: 0.5-1.5% COHB Smokers: Variable, but usually less than 10% Toxic: 20-30% COHB Lethal: Greater than 60% COHB Methemoglobin, Arterial 0.7 <=1.5 % [facility] Na Whole Blood 135 135 - 145 mmol/L [facility] K Whole Blood 4.1 3.5 - 5.0 mmol/L [facility] Comment: Please note: Patients with WBC >100,000 may have falsely elevated Potassium levels. Contact the Clinical Chemistry Laboratory if there are any questions. ICa Whole Blood 1.11(L) 1.15 - 1.33 mmol/L [facility] Comment: Note: ??Total bilirubin higher than 20 mg/dL may lead to falsely low ionized calcium. CL Whole Blood 104 98 - 107 mmol/L [facility] Gluc Whole Bld 161 65 - 199 mg/dL [facility] Comment:Diabetes: >=200 mg/d L plus symptoms. Lactate WB 1.5 0.5 - 2.2 mmol/L [facility] FIO2 Art 50 % [facility] PF Ratio Art 146 [facility] Blood 07/25/2022 10:4 4 PM EDT 07/25/2022 10:44 PM EDT Marco Dior MD POINT [place] [address] * (ABNORMAL) Differential, Automated (07/25/2022 9:10 PM EDT) Pathologist [facility] Neutrophil % 86.1 % [facility] Neutrophil Absolute 6.52(H) 1.70 - 6.10 x10(3)/ L [facility] Lymph % 7.7 % [facility] Lymphocytes Abs 0.6(L) 0.9 - 3.2 x10(3)/[facility] Monocyte % 5.8 % [facility] Monocyte Abs 0.4 0.3 - 0.9 x10(3)/[facility] Eos % 0.0 % [facility] Eosinophils Abs 0.0 0.0 - 0.4 x10(3)/[facility] Basophil % 0.1 % [facility] Baso Absolute 0.0 0.0 - 0.1 x10(3)/[facility] Immature Gran % 0.30 % [facility] Comment: Immature granulocytes(IG's)percentage and absolute count will include metamyelocytes, myelocytes, and promyelocytes. Blood smears from CBCs yielding IG's will be scanned manually for concordance. If this scan disagrees with the automated IG or if promyelocytes are noted, a manual differential will be performed. Immature Gran Absolute 0.02 0.00 - 0.04 x10(3)/[facility] Blood 07/25/2022 9:10 PM EDT 07/25/2022 9:19 PM EDT Narrative Resulting Agency Comment Spec In Lab Edwin England MD [place] [address] * (ABNORMAL) Hemogram (07/25/2022 9:10 PM EDT) White Blood Cell 7.6 4.0 - 9.5 x10(3)/[facility] Red Blood Cell 4.17(L) 4.58 - 5.54 x10(6)/mc L [facility] Hemoglobin 12.9(L) 13.7 - 16.5 g/dL [facility] Hematocrit 38.8(L) 40.5 - 48.5 % [facility] Mean Cell Volume 93.0 82.9 - 93.1 fL [facility] Mean Cell Hemoglobin 30.9 27.5 - 32.1 pg [facility] Mean Cell Hemoglobin Concentration 33.2 32.0 - 35.7 g/dL [facility] Platelet 106(L) 145 - 357 x10(3)/mc L [facility] RDW Standard Deviation 50.3(H) 36.0 - 45.0 fL [facility] RDW coefficient of variation 14.8(H) 11.4 - 13.8 % [facility] Mean Platelet Volume 9.9 7.6 - 12.9 fL [facility] NRBC% auto 0.0 % [facility] NRBC Absolute 0.000 0.000 - 0.000 x10(3)/mc L [facility] Blood 07/25/2022 9:10 PM EDT 07/25/2022 9:19 PM EDT Narrative Resulting Agency Comment Spec In Lab Edwin England MD HEMATOLOGY ORDERABLE S [facility] [place] [address] * Phosphorus (07/25/2022 9:10 PM EDT) Phosphorus 3.0 2.5 - 4.5 mg/dL [facility] Blood 07/25/2022 9:10 PM EDT 07/25/2022 9:19 PM EDT Narrative Resulting Agency Comment Spec In Lab Marco Dior MD CHEMISTRY ORDERABLES [facility] [place] [address] * (ABNORMAL) CK (07/25/2022 9:10 PM EDT) Creatine Kinase 726(H) 0 - 200 unit/L [facility] Blood 07/25/2022 9:10 PM EDT 07/25/2022 9:19 PM EDT Narrative Resulting Agency Comment Spec In Lab Marco Dior MD CHEMISTRY ORDERABLES Performing Organization Address City/[facility] Co de Phone Number [facility] [place] [address] * Fibrinogen (07/25/2022 9:10 PM EDT) Fibrinogen 357 200 - 393 mg/dL [facility] Comment: A fibrinogen level >100 mg/dL is adequate for hemostasis in most patients without underlying bleeding disorders. Blood 07/25/2022 9:10 PM EDT 07/25/2022 9:19 PM EDT Narrative Resulting Agency Comment Spec In Lab Marco Dior MD HEMATOLOGY ORDERABLE S Performing Organization Address [facility] Co de Phone Number [facility] [place] [address] * APTT (07/25/2022 9:10 PM EDT) Partial Thromboplastin Time 33 25 - 37 sec [facility] Comment: The PTT is NOT appropriate for heparin monitoring. Use the Anti-Xa level for heparin monitoring (HEP UFH) or LMWH monitoring (HEP LMW). A PTT less than 37 seconds generally indicates adequate hemostasis. Blood 07/25/2022 9:10 PM EDT 07/25/2022 9:19 PM EDT Narrative Resulting Agency Comment Spec In Lab Marco Dior MD HEMATOLOGY ORDERABLE S Performing Organization Address [facility] Co de Phone Number [facility] [place] [address] * (ABNORMAL) Comprehensive metabolic panel (non-fasting) (07/25/2022 9:10 PM EDT) Glucose 179 65 - 199 mg/dL [facility] Comment:Diabetes: >=200 mg/d L plus symptoms Blood Urea Nitrogen 16 10 - 20 mg/dL [facility] Creatinine 0.93 0.80 - 1.50 mg/dL [facility] Sodium 138 135 - 145 mmol/L [facility] Potassium 4.0 3.5 - 5.0 mmol/L [facility] Comment: Please note: ??Patients with WBC >100,000 may have falsely elevated Potassium levels. ??For accurate Potassium quantification in these patients send serum separator tube (gold top) for subsequent determinations. ??Contact the Clinical Chemistry Laboratory if there are any questions. Chloride 103 98 - 107 mmol/L [facility] Carbon Dioxide 22 22 - 31 mmol/L [facility] Anion Gap 13 5 - 15 mmol/L [facility] Calcium 8.3(L) 8.5 - 10.5 mg/dL [facility] Protein, Total 5.7(L) 6.1 - 8.0 g/dL [facility] Albumin 3.5 3.2 - 5.2 g/dL [facility] Aspartate Aminotransferase 53(H) 0 - 39 unit/L [facility] Alanine Aminotransferase 25 0 - 55 unit/L [facility] Alkaline Phosphatase 58 40 - 130 unit/L [facility] Bilirubin, Total 0.4 0.2 - 1.3 mg/dL [facility] Est Glomerular Filtration Rate 98 >=60 mL/min/1. 73 m?? [facility] Comment: This patient's estimated GFR was [...] In Lab Marco Dior MD CHEMISTRY ORDERABLES [facility] [place] [address] * (ABNORMAL) BLOOD GAS 2 ARTERIAL (07/25/2022 9:09 PM EDT) pH, Arterial 7.38 7.35 - 7.45 [facility] PCO2, Arterial 37 35 - 45 mmHg [facility] PO2, Arterial 63(L) 85 - 104 mmHg [facility] Bicarbonate, Arterial 21.6 20.0 - 26.0 mmol/L [facility] Base Excess, Arterial -3.5(L) -3.0 - 3.0 mmol/L [facility] Hgb Blood Gas 14.1 13.7 - 16.5 g/dL [facility] Oxyhemoglobin, Arterial 90.6(L) 94.0 - 97.0 % [facility] Carboxyhemoglob in, Arterial 0.7 % [facility] Comment: Nonsmokers: 0.5-1.5% COHB Smokers: Variable, but usually less than 10% Toxic: 20-30% COHB Lethal: Greater than 60% COHB Methemoglobin, Arterial 0.6 <=1.5 % [facility] Na Whole Blood 135 135 - 145 mmol/L [facility] K Whole Blood 3.9 3.5 - 5.0 mmol/L [facility] Comment: Please note: Patients with WBC >100,000 may have falsely elevated Potassium levels. Contact the Clinical Chemistry Laboratory if there are any questions. ICa Whole Blood 1.13(L) 1.15 - 1.33 mmol/L [facility] Comment: Note: ??Total bilirubin higher than 20 mg/dL may lead to falsely low ionized calcium. CL Whole Blood 103 98 - 107 mmol/L [facility] Gluc Whole Bld 173 65 - 199 mg/dL [facility] Comment:Diabetes: >=200 mg/d L plus symptoms. Lactate WB 1.8 0.5 - 2.2 mmol/L [facility] [facility] Flow Art 6.0 LPM [facility] Blood 07/25/2022 9:09 PM EDT 07/25/2022 9:09 PM EDT Marco Dior MD POINT OF CARE TEST O SONIA [facility] [place] [address] * (ABNORMAL) BLOOD GAS 2 ARTERIAL (07/25/2022 5:42 PM EDT) pH, Arterial 7.31(L) 7.35 - 7.45 [facility] PCO2, Arterial 39 35 - 45 mmHg [facility] PO2, Arterial 72(L) 85 - 104 mmHg [facility] Bicarbonate, Arterial 19.1(L) 20.0 - 26.0 mmol/L [facility] Base Excess, Arterial -7.4(L) -3.0 - 3.0 mmol/L [facility] Hgb Blood Gas 14.4 13.7 - 16.5 g/dL [facility] Oxyhemoglobin, Arterial 92.9(L) 94.0 - 97.0 % [facility] Carboxyhemoglob in, Arterial 0.8 % [facility] Comment: Nonsmokers: 0.5-1.5% COHB Smokers: Variable, but usually less than 10% Toxic: 20-30% COHB Lethal: Greater than 60% COHB Methemoglobin, Arterial 0.5 <=1.5 % [facility] Na Whole Blood 137 135 - 145 mmol/L [facility] K Whole Blood 3.8 3.5 - 5.0 mmol/L [facility] Comment: Please note: Patients with WBC >100,000 may have falsely elevated Potassium levels. Contact the Clinical Chemistry Laboratory if there are any questions. ICa Whole Blood 1.14(L) 1.15 - 1.33 mmol/L [facility] Comment: Note: ??Total bilirubin higher than 20 mg/dL may lead to falsely low ionized calcium. CL Whole Blood 105 98 - 107 mmol/L [facility] Gluc Whole Bld 161 65 - 199 mg/dL [facility] Comment:Diabetes: >=200 mg/d L plus symptoms. Lactate WB 1.7 0.5 - 2.2 mmol/L [facility] Flow Art 4.0 LPM [facility] Temp Art 36.2 Celsius [facility] Blood 07/25/2022 5:42 PM EDT 07/25/2022 5:42 PM EDT Marco Dior MD POINT OF CARE TEST O RDERABLES [facility] [place] [address] * XR Chest One View (07/25/2022 3:53 [...] who have questions please contact the health wound care rn that requested your imaging first. ? Narrative 07/25/2022 4:19 PM EDT EXAMINATION: XR CHEST ONE VIEW CLINICAL HISTORY: central line placement TECHNIQUE: Single portable AP 20 degrees upright chest radiograph 07/25/2022 at 1550 hours COMPARISON: CT a abdominal aorta and lower extremity runoff 07/24/[address] [facility] FINDINGS: Monitor leads and wires overlie [...] abdominal aorta and lower extremity runoff 07/24/2022 [facility] FINDINGS: Monitor leads and wires overlie [...] patients who have questions please contactthe health wound care rn that requested your imaging first. Marco Dior MD IMG DX ORDERABLES * (ABNORMAL) BLOOD GAS 2 ARTERIAL (07/25/2022 3:42 PM EDT) pH, Arterial 7.29(Crit ical) 7.35 - 7.45 [facility] Comment:Noted by certified hearing instrument dispenser. PCO2, Arterial 41 35 - 45 mmHg [facility] PO2, Arterial 66(L) 85 - 104 mmHg [facility] Bicarbonate, Arterial 19.6(L) 20.0 - 26.0 mmol/L [facility] Base Excess, Arterial -7.3(L) -3.0 - 3.0 mmol/L [facility] Hgb Blood Gas 16.4 13.7 - 16.5 g/dL [facility] Oxyhemoglobin, Arterial 91.9(L) 94.0 - 97.0 % [facility] Carboxyhemoglo bin, Arterial 0.9 % [facility] Comment: Nonsmokers: 0.5-1.5% COHB Smokers: Variable, but usually less than 10% Toxic: 20-30% COHB Lethal: Greater than 60% COHB Methemoglobin, Arterial 0.5 <=1.5 % [facility] Na Whole Blood 138 135 - 145 mmol/L [facility] K Whole Blood 3.8 3.5 - 5.0 mmol/L [facility] Comment: Please note: Patients with WBC >100,000 may have falsely elevated Potassium levels. Contact the Clinical Chemistry Laboratory if there are any questions. ICa Whole Blood 1.18 1.15 - 1.33 mmol/L [facility] Comment: Note: ??Total bilirubin higher than 20 mg/dL may lead to falsely low ionized calcium. CL Whole Blood 105 98 - 107 mmol/L [facility] Gluc Whole Bld 172 65 - 199 mg/dL [facility] Comment:Diabetes: >=200 mg/d L plus symptoms. Lactate WB 1.9 0.5 - 2.2 mmol/L [facility] Flow Art 6.0 LPM [facility] Temp Art 35.3 Celsius [facility] Blood 07/25/2022 3:42 PM EDT 07/25/2022 3:42 PM EDT Marco Dior MD POINT OF CARE TEST O RDERABLES [facility] [place] [address] * (ABNORMAL) Differential, Automated (07/25/2022 3:20 PM EDT) Neutrophil % 78.5 % [facility] Neutrophil Absolute 10.91(H) 1.70 - 6.10 x10(3)/mc L [facility] Lymph % 15.7 % [facility] Lymphocytes Abs 2.2 0.9 - 3.2 x10(3)/ L [facility] Monocyte % 4.9 % [facility] Monocyte Abs 0.7 0.3 - 0.9 x10(3)/ L [facility] Eos % 0.2 % [facility] Eosinophils Abs 0.0 0.0 - 0.4 x10(3)/[facility] LABORATORY Basophil % 0.3 % [facility] Baso Absolute 0.0 0.0 - 0.1 x10(3)/ L [facility] Immature Gran % 0.40 % [facility] Comment: Immature granulocytes(IG's)percentage and absolute count will include metamyelocytes, myelocytes, and promyelocytes. Blood smears from CBCs yielding IG's will be scanned manually for concordance. If this scan disagrees with the automated IG or if promyelocytes are noted, a manual differential will be performed. Immature Gran Absolute 0.06(H) 0.00 - 0.04 x10(3)/ L [facility] Blood 07/25/2022 3:20 PM EDT 07/25/2022 3:40 PM EDT Narrative Resulting Agency Comment Spec In Lab Edwin England MD HEMATOLOGY ORDERABLE S [facility] [place] [address] * (ABNORMAL) Hemogram (07/25/2022 3:20 PM EDT) White Blood Cell 13.9(H) 4.0 - 9.5 x10(3)/ L [facility] Red Blood Cell 5.00 4.58 - 5.54 x10(6)/[facility] LABORATORY Hemoglobin 15.3 13.7 - 16.5 g/dL [facility] Hematocrit 46.9 40.5 - 48.5 % [facility] Mean Cell Volume 93.8(H) 82.9 - 93.1 fL [facility] Mean Cell Hemoglobin 30.6 27.5 - 32.1 pg [facility] Mean Cell Hemoglobin Concentration 32.6 32.0 - 35.7 g/dL [facility] Platelet 151 145 - 357 x10(3)/mc L [facility] RDW Standard Deviation 51.3(H) 36.0 - 45.0 fL [facility] RDW coefficient of variation 14.9(H) 11.4 - 13.8 % [facility] Mean Platelet Volume 10.5 7.6 - 12.9 fL [facility] NRBC% auto 0.0 % [facility] NRBC Absolute 0.000 0.000 - 0.000 x10(3)/mc L [facility] Blood 07/25/2022 3:20 PM EDT 07/25/2022 3:40 PM EDT Narrative Resulting Agency Comment Spec In Lab Edwin England MD HEMATOLOGY ORDERABLE S Performing Organization Address [facility] Co de Phone Number [facility] [address] * (ABNORMAL) CK (07/25/2022 3:20 PM EDT) Creatine Kinase 747(H) 0 - 200 unit/L [facility] Blood 07/25/2022 3:20 PM EDT 07/25/2022 3:40 PM EDT Narrative Resulting Agency Comment Spec In Lab Marco Dior MD CHEMISTRY ORDERABLES Performing Organization Address [facility] de Phone Number [facility] [place] [address] * (ABNORMAL) Fibrinogen (07/25/2022 3:20 PM EDT) Fibrinogen 402(H) 200 - 393 mg/dL [facility] Comment: A fibrinogen level >100 mg/dL is adequate for hemostasis in most patients without underlying bleeding disorders. Blood 07/25/2022 3:20 PM EDT 07/25/2022 3:40 PM EDT Narrative Resulting Agency Comment Spec In Lab Marco Dior MD HEMATOLOGY ORDERABLE S Performing Organization Address [facility]/ZIP Co de Phone Number [facility] [place] [address] * APTT (07/25/2022 3:20 PM EDT) Partial Thromboplastin Time 35 25 - 37 sec [facility] Comment: The PTT is NOT appropriate for heparin monitoring. Use the Anti-Xa level for heparin monitoring (HEP UFH) or LMWH monitoring (HEP LMW). A PTT less than 37 seconds generally indicates adequate hemostasis. Blood 07/25/2022 3:20 PM EDT 07/25/2022 3:40 PM EDT Narrative Resulting Agency Comment Spec In Lab Marco Dior MD HEMATOLOGY ORDERABLE S Performing Organization Address [facility] Co de Phone Number [facility] [place] [address] * (ABNORMAL) Comprehensive metabolic panel (non-fasting) (07/25/2022 3:20 PM EDT) Glucose 181 65 - 199 mg/dL [facility] Comment: result rechecked- [place] Diabetes: >=200 mg/dL plus symptoms Blood Urea Nitrogen 19 10 - 20 mg/dL [facility] Creatinine 0.97 0.80 - 1.50 mg/dL [facility] Sodium 140 135 - 145 mmol/L [facility] Potassium 3.8 3.5 - 5.0 mmol/L [facility] Comment: Please note: ??Patients with WBC >100,000 may have falsely elevated Potassium levels. ??For accurate Potassium quantification in these patients send serum separator tube (gold top) for subsequent determinations. ??Contact the Clinical Chemistry Laboratory if there are any questions. Chloride 104 98 - 107 mmol/L [facility] Carbon Dioxide 19(L) 22 - 31 mmol/L [facility] Anion Gap 17(H) 5 - 15 mmol/L [facility] Calcium 8.9 8.5 - 10.5 mg/dL [facility] Protein, Total 5.9(L) 6.1 - 8.0 g/dL [facility] Albumin 3.2 3.2 - 5.2 g/dL [facility] Aspartate Aminotransferase 67(H) 0 - 39 unit/L [facility] Comment:result rechecked- [place] Alanine Aminotransferase 34 0 - 55 unit/L [facility] Comment:result rechecked- [place] Alkaline Phosphatase 74 40 - 130 unit/L [facility] Bilirubin, Total 0.4 0.2 - 1.3 mg/dL [facility] Est Glomerular Filtration Rate 93 >=60 mL/min/1. 73 m?? [facility] Comment: This patient's estimated GFR was [...] In Lab Marco Dior MD CHEMISTRY ORDERABLES [facility] [place] [address] * Prothrombin Time (07/25/2022 3:20 PM EDT) Prothrombin Time 11.8 9.4 - 12.5 sec [facility] International Normalization Ratio 1.0 [facility] Comment: An INR <2.0 indicates adequate [...] Lab Marco Dior MD HEMATOLOGY ORDERABLE S [facility] [place] [address] * (ABNORMAL) BLOOD GAS 2 ARTERIAL (07/25/2022 1:34 PM EDT) pH, Arterial 7.37 7.35 - 7.45 [facility] PCO2, Arterial 36 35 - 45 mmHg [facility] PO2, Arterial 157(H) 85 - 104 mmHg [facility] Bicarbonate, Arterial 21.0 20.0 - 26.0 mmol/L [facility] Base Excess, Arterial -4.9(L) -3.0 - 3.0 mmol/L [facility] Hgb Blood Gas 14.3 13.7 - 16.5 g/dL [facility] Oxyhemoglobin, Arterial 97.1(H) 94.0 - 97.0 % [facility] Carboxyhemoglob in, Arterial 1.9 % [facility] Comment: Nonsmokers: 0.5-1.5% COHB Smokers: Variable, but usually less than 10% Toxic: 20-30% COHB Lethal: Greater than 60% COHB Methemoglobin, Arterial 0.3 <=1.5 % [facility] Na Whole Blood 138 135 - 145 mmol/L [facility] K Whole Blood 4.0 3.5 - 5.0 mmol/L [facility] Comment: Please note: Patients with WBC >100,000 may have falsely elevated Potassium levels. Contact the Clinical Chemistry Laboratory if there are any questions. ICa Whole Blood 1.20 1.15 - 1.33 mmol/L [facility] Comment: Note: ??Total bilirubin higher than 20 mg/dL may lead to falsely low ionized calcium. CL Whole Blood 106 98 - 107 mmol/L [facility] Gluc Whole Bld 119 65 - 199 mg/dL [facility] Comment:Diabetes: >=200 mg/d L plus symptoms. Lactate WB 1.7 0.5 - 2.2 mmol/L [facility] Temp Art 34.5 Celsius [facility] Blood 07/25/2022 1:34 PM EDT 07/25/2022 1:34 PM EDT Marco Dior MD POINT OF CARE TEST O RDERABLES [facility] [place] [address] * (ABNORMAL) BLOOD GAS 2 ARTERIAL (07/25/2022 12:30 PM EDT) pH, Arterial 7.40 7.35 - 7.45 [facility] PCO2, Arterial 33(L) 35 - 45 mmHg [facility] PO2, Arterial 142(H) 85 - 104 mmHg [facility] Bicarbonate, Arterial 20.1 20.0 - 26.0 mmol/L [facility] Base Excess, Arterial -5.3(L) -3.0 - 3.0 mmol/L [facility] Hgb Blood Gas 14.0 13.7 - 16.5 g/dL [facility] Oxyhemoglobin, Arterial 97.3(H) 94.0 - 97.0 % [facility] Carboxyhemoglob in, Arterial 1.6 % [facility] Comment: Nonsmokers: 0.5-1.5% COHB Smokers: Variable, but usually less than 10% Toxic: 20-30% COHB Lethal: Greater than 60% COHB Methemoglobin, Arterial 0.3 <=1.5 % [facility] Na Whole Blood 136 135 - 145 mmol/L [facility] K Whole Blood 4.0 3.5 - 5.0 mmol/L [facility] Comment: Please note: Patients with WBC >100,000 may have falsely elevated Potassium levels. Contact the Clinical Chemistry Laboratory if there are any questions. ICa Whole Blood 1.26 1.15 - 1.33 mmol/L [facility] Comment: Note: ??Total bilirubin higher than 20 mg/dL may lead to falsely low ionized calcium. CL Whole Blood 105 98 - 107 mmol/L [facility] Gluc Whole Bld 105 65 - 199 mg/dL [facility] Comment:Diabetes: >=200 mg/d L plus symptoms. Lactate WB 0.9 0.5 - 2.2 mmol/L [facility] FIO2 Art 80 % [facility] PF Ratio Art 178 [facility] Temp Art 34.7 Celsius [facility] Blood 07/25/2022 12:3 0 PM EDT 07/25/2022 12:30 PM EDT Marco Dior MD POINT OF CARE TEST O RDERABLES [facility] [place] [address] * (ABNORMAL) BLOOD GAS 2 ARTERIAL (07/25/2022 11:42 AM EDT) pH, Arterial 7.37 7.35 - 7.45 [facility] PCO2, Arterial 35 35 - 45 mmHg [facility] PO2, Arterial 172(H) 85 - 104 mmHg [facility] Bicarbonate, Arterial 20.3 20.0 - 26.0 mmol/L [facility] Base Excess, Arterial -5.5(L) -3.0 - 3.0 mmol/L [facility] Hgb Blood Gas 13.1(L) 13.7 - 16.5 g/dL [facility] Oxyhemoglobin, Arterial 97.3(H) 94.0 - 97.0 % [facility] Carboxyhemoglob in, Arterial 1.6 % [facility] Comment: Nonsmokers: 0.5-1.5% COHB Smokers: Variable, but usually less than 10% Toxic: 20-30% COHB Lethal: Greater than 60% COHB Methemoglobin, Arterial 0.3 <=1.5 % [facility] Na Whole Blood 135 135 - 145 mmol/L [facility] K Whole Blood 3.6 3.5 - 5.0 mmol/L [facility] Comment: Please note: Patients with WBC >100,000 may have falsely elevated Potassium levels. Contact the Clinical Chemistry Laboratory if there are any questions. ICa Whole Blood 1.19 1.15 - 1.33 mmol/L [facility] Comment: Note: ??Total bilirubin higher than 20 mg/dL may lead to falsely low ionized calcium. CL Whole Blood 106 98 - 107 mmol/L [facility] Gluc Whole Bld 113 65 - 199 mg/dL [facility] Comment:Diabetes: >=200 mg/d L plus symptoms. Lactate WB 1.1 0.5 - 2.2 mmol/L [facility] Temp Art 34.9 Celsius [facility] Blood 07/25/2022 11:4 2 AM EDT 07/25/2022 11:42 AM EDT Marco Dior MD POINT OF CARE TEST O RDERABLES [facility] [place] [address] * (ABNORMAL) BLOOD GAS 2 ARTERIAL (07/25/2022 10:40 AM EDT) pH, Arterial 7.29(Crit ical) 7.35 - 7.45 [facility] Comment:Noted by certified hearing instrument dispenser. PCO2, Arterial 41 35 - 45 mmHg [facility] PO2, Arterial 80(L) 85 - 104 mmHg [facility] Bicarbonate, Arterial 19.4(L) 20.0 - 26.0 mmol/L [facility] Base Excess, Arterial -7.6(L) -3.0 - 3.0 mmol/L [facility] Hgb Blood Gas 15.1 13.7 - 16.5 g/dL [facility] Oxyhemoglobin, Arterial 93.5(L) 94.0 - 97.0 % [facility] Carboxyhemoglo bin, Arterial 2.4 % [facility] Comment: Nonsmokers: 0.5-1.5% COHB Smokers: Variable, but usually less than 10% Toxic: 20-30% COHB Lethal: Greater than 60% COHB Methemoglobin, Arterial 0.3 <=1.5 % [facility] Na Whole Blood 137 135 - 145 mmol/L [facility] K Whole Blood 3.8 3.5 - 5.0 mmol/L [facility] Comment: Please note: Patients with WBC >100,000 may have falsely elevated Potassium levels. Contact the Clinical Chemistry Laboratory if there are any questions. ICa Whole Blood 1.13(L) 1.15 - 1.33 mmol/L [facility] Comment: Note: ??Total bilirubin higher than 20 mg/dL may lead to falsely low ionized calcium. CL Whole Blood 108(H) 98 - 107 mmol/L [facility] Gluc Whole Bld 91 65 - 199 mg/dL [facility] Comment:Diabetes: >=200 mg/d L plus symptoms. Lactate WB 0.8 0.5 - 2.2 mmol/L [facility] Temp Art 35.3 Celsius [facility] Blood 07/25/2022 10:4 0 AM EDT 07/25/2022 10:40 AM EDT Marco Dior MD POINT OF CARE TEST O RDERABLES [facility] [place] [address] * (ABNORMAL) BLOOD GAS 2 ARTERIAL (07/25/2022 9:34 AM EDT) pH, Arterial 7.30(L) 7.35 - 7.45 [facility] PCO2, Arterial 43 35 - 45 mmHg [facility] PO2, Arterial 125(H) 85 - 104 mmHg [facility] Bicarbonate, Arterial 20.8 20.0 - 26.0 mmol/L [facility] Base Excess, Arterial -5.6(L) -3.0 - 3.0 mmol/L [facility] Hgb Blood Gas 14.6 13.7 - 16.5 g/dL [facility] Oxyhemoglobin, Arterial 96.0 94.0 - 97.0 % [facility] Carboxyhemoglob in, Arterial 2.0 % [facility] Comment: Nonsmokers: 0.5-1.5% COHB Smokers: Variable, but usually less than 10% Toxic: 20-30% COHB Lethal: Greater than 60% COHB Methemoglobin, Arterial 0.3 <=1.5 % [facility] Na Whole Blood 137 135 - 145 mmol/L [facility] K Whole Blood 3.7 3.5 - 5.0 mmol/L [facility] Comment: Please note: Patients with WBC >100,000 may have falsely elevated Potassium levels. Contact the Clinical Chemistry Laboratory if there are any questions. ICa Whole Blood 1.13(L) 1.15 - 1.33 mmol/L [facility] Comment: Note: ??Total bilirubin higher than 20 mg/dL may lead to falsely low ionized calcium. CL Whole Blood 106 98 - 107 mmol/L [facility] Gluc Whole Bld 79 65 - 199 mg/dL [facility] Comment:Diabetes: >=200 mg/d L plus symptoms. Lactate WB 1.0 0.5 - 2.2 mmol/L [facility] Blood 07/25/2022 9:34 AM EDT 07/25/2022 9:34 AM EDT Marco Dior MD POINT OF CARE TEST O RDERABLES [facility] [place] [address] * Differential, Automated (07/25/2022 4:21 AM EDT) Neutrophil % 51.1 % [facility] Neutrophil Absolute 3.39 1.70 - 6.10 x10(3)/[facility] Lymph % 40.1 % [facility] Lymphocytes Abs 2.7 0.9 - 3.2 x10(3)/[facility] Monocyte % 6.3 % [facility] Monocyte Abs 0.4 0.3 - 0.9 x10(3)/[facility] Eos % 1.7 % [facility] Eosinophils Abs 0.1 0.0 - 0.4 x10(3)/[facility] Basophil % 0.5 % [facility] Baso Absolute 0.0 0.0 - 0.1 x10(3)/[facility] Immature Gran % 0.30 % [facility] [facility] Comment: Immature granulocytes(IG's)percentage and absolute count will include metamyelocytes, myelocytes, and promyelocytes. Blood smears from CBCs yielding IG's will be scanned manually for concordance. If this scan disagrees with the automated IG or if promyelocytes are noted, a manual differential will be performed. Immature Gran Absolute 0.02 0.00 - 0.04 x10(3)/[facility] Blood 07/25/2022 4:21 AM EDT 07/25/2022 4:26 AM EDT Narrative Resulting Agency Comment Spec In Lab Paul Reynolds MD HEMATOLOGY ORDERABLE S [facility] [place] [address] * (ABNORMAL) Hemogram (07/25/2022 4:21 AM EDT) White Blood Cell 6.6 4.0 - 9.5 x10(3)/mc L [facility] Red Blood Cell 3.94(L) 4.58 - 5.54 x10(6)/mc L [facility] Hemoglobin 12.3(L) 13.7 - 16.5 g/dL [facility] Hematocrit 36.9(L) 40.5 - 48.5 % [facility] Mean Cell Volume 93.7(H) 82.9 - 93.1 fL [facility] Mean Cell Hemoglobin 31.2 27.5 - 32.1 pg [facility] Mean Cell Hemoglobin Concentration 33.3 32.0 - 35.7 g/dL [facility] Platelet 129(L) 145 - 357 x10(3)/mc L [facility] RDW Standard Deviation 50.5(H) 36.0 - 45.0 fL [facility] RDW coefficient of variation 14.7(H) 11.4 - 13.8 % [facility] Mean Platelet Volume 10.1 7.6 - 12.9 fL [facility] NRBC% auto 0.0 % [facility] NRBC Absolute 0.000 0.000 - 0.000 x10(3)/mc L [facility] Blood 07/25/2022 4:21 AM EDT 07/25/2022 4:26 AM EDT Narrative Resulting Agency Comment Spec In Lab Paul Reynolds MD HEMATOLOGY ORDERABLE S [facility] [place] [address] * Heparin (unfractionated) Level (07/25/2022 4:21 AM EDT) UF Heparin 0.44 IU/mL [facility] Comment: Heparin (anti-Xa) levels [...] MD HEMATOLOGY ORDERABLE S Performing Organization Address [facility] Co de Phone Number [facility] [place] [address] * Phosphorus (07/25/2022 4:21 AM EDT) Phosphorus 2.5 2.5 - 4.5 mg/dL [facility] Blood 07/25/2022 4:21 AM EDT 07/25/2022 4:26 AM EDT Narrative Resulting Agency Comment Spec In Lab Marco Dior MD CHEMISTRY ORDERABLES Performing Organization Address [facility] Co de Phone Number [facility] [place] [address] * (ABNORMAL) Magnesium (07/25/2022 4:21 AM EDT) Magnesium 0.61(L) 0.69 - 1.07 mmol/L [facility] Blood 07/25/2022 4:21 AM EDT 07/25/2022 4:26 AM EDT Narrative Resulting Agency Comment Spec In Lab Marco Dior MD CHEMISTRY ORDERABLES Performing Organization Address [facility] Co de Phone Number [facility] [place] [address] * (ABNORMAL) Basic Metabolic Panel (non-fasting) (07/25/2022 4:21 AM EDT) Glucose 66 65 - 199 mg/dL [facility] Comment:Diabetes: >=200 mg/d L plus symptoms Blood Urea Nitrogen 19 10 - 20 mg/dL [facility] Creatinine 0.84 0.80 - 1.50 mg/dL [facility] Sodium 137 135 - 145 mmol/L [facility] Potassium 4.0 3.5 - 5.0 mmol/L [facility] Comment: Please note: ??Patients with WBC >100,000 may have falsely elevated Potassium levels. ??For accurate Potassium quantification in these patients send serum separator tube (gold top) for subsequent determinations. ??Contact the Clinical Chemistry Laboratory if there are any questions. Chloride 106 98 - 107 mmol/L [facility] Carbon Dioxide 19(L) 22 - 31 mmol/L [facility] Anion Gap 12 5 - 15 mmol/L [facility] Calcium 8.1(L) 8.5 - 10.5 mg/dL [facility] Est Glomerular Filtration Rate 104 >=60 mL/min/1. 73 m?? [facility] Comment: This patient's estimated GFR was [...] In Lab Marco Dior MD CHEMISTRY ORDERABLES [facility] [place] [address] * SCAN DOC: IMPLANTABLE DEVICES (07/25/2022 12:00 AM EDT) Narrative 07/25/2022 12:00 AM EDT Ordered by an unspecified provider. Scanning Provider MEDIA MGR SCAN EXT O RDR/RSLT * L-Lactate2 Whole Blood (07/24/2022 9:48 PM EDT) [facility] Lactate WB 1.2 0.5 - 2.2 mmol/L [facility] Blood 07/24/2022 9:48 PM EDT 07/24/2022 9:48 PM EDT Marco Dior MD CHEMISTRY ORDERABLES [facility] [place] [address] * Type and Screen Validity (07/24/2022 9:15 PM EDT) [facility] T&S only valid at [facility] Comment:This Type and Screen result is only valid at the [facility] Blood 07/24/2022 9:15 PM EDT 07/24/2022 9:24 PM EDT Narrative Resulting Agency Comment Spec In Lab Christiano Bah MD BLOOD BANK LAB ORDER TABITHA [facility] [place] [address] * ABORH Recheck Status (07/24/2022 9:15 PM EDT) [facility] ABORH Recheck Order Order Placed [facility] ABORH Type Recheck Complete [facility] Blood 07/24/2022 9:15 PM EDT 07/24/2022 9:24 PM EDT Narrative Resulting Agency Comment Spec In Lab Christiano Bah MD BLOOD BANK LAB ORDER TBAITHA [facility] [place] [address] * Differential, Automated (07/24/2022 9:15 PM EDT) Neutrophil % 51.2 % [facility] Neutrophil Absolute 4.15 1.70 - 6.10 x10(3)/[facility] Lymph % 39.5 % [facility] Lymphocytes Abs 3.2 0.9 - 3.2 x10(3)/[facility] Monocyte % 6.8 % [facility] Monocyte Abs 0.6 0.3 - 0.9 x10(3)/[facility] Eos % 1.9 % [facility] Eosinophils Abs 0.2 0.0 - 0.4 x10(3)/[facility] Basophil % 0.5 % [facility] Baso Absolute 0.0 0.0 - 0.1 x10(3)/[facility] Immature Gran % 0.10 % [facility] Comment: Immature granulocytes(IG's)percentage and absolute count will include metamyelocytes, myelocytes, and promyelocytes. Blood smears from CBCs yielding IG's will be scanned manually for concordance. If this scan disagrees with the automated IG or if promyelocytes are noted, a manual differential will be performed. Immature Gran Absolute 0.01 0.00 - 0.04 x10(3)/[facility] Blood 07/24/2022 9:15 PM EDT 07/24/2022 9:26 PM EDT Narrative Resulting Agency Comment Spec In Lab Christiano Bah MD HEMATOLOGY ORDERABLE S Performing Organization Address City/State/[facility] Co de Phone Number [facility] [place] [address] * (ABNORMAL) Hemogram (07/24/2022 9:15 PM EDT) White Blood Cell 8.1 4.0 - 9.5 x10(3)/mc L [facility] Red Blood Cell 4.80 4.58 - 5.54 x10(6)/mc L [facility] Hemoglobin 15.0 13.7 - 16.5 g/dL [facility] Hematocrit 44.0 40.5 - 48.5 % [facility] Mean Cell Volume 91.7 82.9 - 93.1 fL [facility] Mean Cell Hemoglobin 31.3 27.5 - 32.1 pg [facility] Mean Cell Hemoglobin Concentration 34.1 32.0 - 35.7 g/dL [facility] Platelet 153 145 - 357 x10(3)/mc L [facility] RDW Standard Deviation 49.3(H) 36.0 - 45.0 fL [facility] RDW coefficient of variation 14.7(H) 11.4 - 13.8 % [facility] Mean Platelet Volume 10.0 7.6 - 12.9 fL [facility] NRBC% auto 0.0 % [facility] NRBC Absolute 0.000 0.000 - 0.000 x10(3)/mc L [facility] Blood 07/24/2022 9:15 PM EDT 07/24/2022 9:26 PM EDT Narrative Resulting Agency Comment Spec In Lab Christiano Bah MD HEMATOLOGY ORDERABLE S Performing Organization Address City/[facility]/ZIP Co de Phone Number [facility] [place] [address] * Antibody screen (07/24/2022 9:15 PM EDT) Ab Screen Interp Negative [facility] Expires at 2359 on: 07/27/2022 [facility] Blood 07/24/2022 9:15 PM EDT 07/24/2022 9:24 PM EDT Narrative Resulting Agency Comment Spec In Lab Christiano Bah MD BLOOD BANK LAB ORDER TABITHA Performing Organization Address City/[facility]/ZIP Co de Phone Number [facility] [place] [address] * ABO/Rh Typing (07/24/2022 9:15 PM EDT) ABORH Type O Pos [facility] Blood 07/24/2022 9:15 PM EDT 07/24/2022 9:24 PM EDT Narrative Resulting Agency Comment Spec In Lab Christiano Bah MD BLOOD BANK LAB ORDER TABITHA [facility] [place] [address] * (ABNORMAL) Heparin (unfractionated) Level (07/24/2022 9:15 PM EDT) UF Heparin 1.05(Crit ical) IU/mL [facility] Comment: Critical Result called by ?? [facility] Results read back by: ? Called [...] Lab April Turner MD HEMATOLOGY ORDERABLE S [facility] [place] [address] * (ABNORMAL) APTT (07/24/2022 9:15 PM EDT) Partial Thromboplastin Time >160(Crit ical) 25 - 37 sec [facility] Comment: Critical Result called by ?? [...] MD HEMATOLOGY ORDERABLE S Performing Organization Address [facility] de Phone Number [facility] [place] [address] * (ABNORMAL) Prothrombin Time (07/24/2022 9:15 PM EDT) Prothrombin Time 13.2(H) 9.4 - 12.5 sec [facility] International Normalization Ratio 1.2 [facility] Comment: An INR <2.0 indicates adequate [...] MD HEMATOLOGY ORDERABLE S Performing Organization Address [facility] de Phone Number [facility] [place] [address] * (ABNORMAL) Comprehensive metabolic panel (non-fasting) (07/24/2022 9:15 PM EDT) Glucose 73 65 - 199 mg/dL [facility] Comment:Diabetes: >=200 mg/d L plus symptoms Blood Urea Nitrogen 23(H) 10 - 20 mg/dL [facility] Creatinine 1.05 0.80 - 1.50 mg/dL [facility] Sodium 139 135 - 145 mmol/L [facility] Potassium 3.9 3.5 - 5.0 mmol/L [facility] Comment: Please note: ??Patients with WBC >100,000 may have falsely elevated Potassium levels. ??For accurate Potassium quantification in these patients send serum separator tube (gold top) for subsequent determinations. ??Contact the Clinical Chemistry Laboratory if there are any questions. Chloride 107 98 - 107 mmol/L [facility] Carbon Dioxide 20(L) 22 - 31 mmol/L [facility] Anion Gap 12 5 - 15 mmol/L [facility] Calcium 8.7 8.5 - 10.5 mg/dL [facility] Protein, Total 6.7 6.1 - 8.0 g/dL [facility] Albumin 3.7 3.2 - 5.2 g/dL [facility] Aspartate Aminotransferase 17 0 - 39 unit/L [facility] Alanine Aminotransferase 13 0 - 55 unit/L [facility] Alkaline Phosphatase 77 40 - 130 unit/L [facility] Bilirubin, Total 0.4 0.2 - 1.3 mg/dL [facility] Est Glomerular Filtration Rate 84 >=60 mL/min/1. 73 m?? [facility] Comment: This patient's estimated GFR was [...] In Lab April Turner MD CHEMISTRY ORDERABLES [facility] [place] [address] documented in this encounter Visit Diagnoses Not on filedocumented in this encounter Admitting Diagnoses Diagnosis Aortic disorder Unspecified disorders of arteries and arterioles documented in this encounter Administered Medications Inactive Administered Medications - up to 3 most recent administrations Medication Order MAR Action Action Date Dose Rate Site acetaminophen (Tylenol) tablet 1,000 mg 1,000 mg, Oral, EVERY 6 HOURS, First dose on 6/4/23 at 1200, Until Discontinued, Maximum dose of [...] adsorbable 12-7 mm sponge PRN, Starting on Sun07/25/22 at 1021, Until Sun07/25/22 at 1446, Intra-Operative (Intra-Procedure) Given 07/25/2022 12:03 PM EDT 2 each Given 07/25/2022 10:21 AM EDT 1 each heparin (porcine) (1,000 units/mL) injection PRN, Starting on Sun07/25/22 at 1020, Until Sun07/25/22 at 1446, Intra-Operative (Intra-Procedure), Routine Given 07/25/2022 10:20 AM EDT 5,000 Units hydrALAZINE (Apresoline) (20 mg/mL) injection 10 [...] provided on this medication record., Routine thrombin (Bovine) (Thrombinar) kit PRN, Starting on Sun07/25/22 at 1021, Until Sun07/25/22 at 1446, Intra-Operative (Intra-Procedure) Given 07/25/2022 12:02 PM EDT 60,000 Units 19- Surgical Site Given 07/25/2022 10:21 AM EDT 20,000 Units documented in this encounter Active and Recently [...] Routine documented in this encounter Care Teams Production Boring Machine Operator Relationship Specialty Start Date End Date April Ramierz MD [address] [place] [address] PCP - General Family Medicine 07/24/22 documented as of this encounter
--- OUTSIDE RECORDS SUMMARY | 2024-04-04 20:24 | XMS_ITS | Encounter Summary ---
Author Organization [facility] Address [address] [place] [id number] Care Team Providers Care Well Testing Operator Name Role Phone Unavailable Primary Care Provider Unavailabl e Encounter Details Date Type Department Care Team (Late st Contact Info) Description 08/23/2021 Lab Requisition [facility] Pathology & Laboratory Medicine - [address] [address] Outr Resulting Lab, Provider Social History Tobacco Use Types Packs/Day Years Used Date Smoking Tobacco: Never Assessed Sex and Gender Information Value Date Recorded Sex Assigned at Not on file Legal Sex Male 8:54 EST Gender Identity Not on file Sexual Orientation Not on file documented as of this encounter Plan of Treatment Not on file documented as of this encounter Procedures Procedure Name Priority Date/Time Associated Diagnosis Comments ANTI NUCLEAR AB (NEEMA), IFA Routine 08/23/2021 11:24 EDT documented in this encounter Results * (ABNORMAL) ANTI NUCLEAR AB (NEEMA), IFA (08/23/2021 11:24 EDT) NEEMA Interpretation Positive(A) Negative 08/24/2021 14:55 EDT [facility] Comment: For titers greater than or equal to 1:160 (except the centromere and nucleolar patterns) it is recommended that specific follow-up autoantibody testing ??(such as for dsDNA and Extractable Nuclear Antigens) be performed on all diffuse and/or speckled patterns NOTE: For add-on testing dsDNA is stable for 7 days refrigerated while Extractable Nuclear Antigens are only stable for 48 hours refrigerated. NEEMA Titer and Pattern 1 1:320 Homogeneous 08/24/2021 14:55 EDT [facility] Blood VENOUS BLOOD / Unknown 08/23/2021 11:24 EDT 08/23/2021 22:23 EDT Narrative [facility] - 08/24/2021 14:55 EDT Results were obtained with the INOVA NOVA Lite HEp-2 NEEMA Kit by indirect immunofluorescence. us Provider Outr Resulting Lab IMMUNOLOGY AND SEROL OGY ORDERABLES Final Result [facility] [address] [place] [address] documented in this encounter Visit Diagnoses Not on filedocumented in this encounter
--- OUTSIDE RECORDS SUMMARY | 2024-04-04 20:24 | XMS_ITS | Encounter Summary ---
[place] [address] Care Team Providers Care Property And Casualty Insurance Agent Name Role Phone Unavailable Primary Care Provider Unavailabl e Reason for Referral * Consultation (Routine) - Closed Specialty Diagnoses / Procedures Referred By Lisbeth cervantes Referred To Contact Nephrology Diagnoses Renal insufficiency April Ramirez MD [address] [place] [address] [facility] [address] [place] [phone] Referral ID Status Reason Start Date Expiration Date V isits Requested Visits Authorized [id number] Closed Consult, Test & Treat PCP Updated and/or Approved 12/01/2021 12/01/2022 12 12 Encounter Details Date Type Department Care Team (Latest Contact Info) Description 12/01/2021 Transcribe Orders eDH Incoming Referrals [phone] April Ramirez MD [address] [place], [place] [id number] Renal insufficiency Social History Tobacco Use Types Packs/Day Years Used Date Smoking Tobacco: Never Assessed Sex and Gender Information Value Date Recorded Sex Assigned at Not on file Gender Identity Not on file Sexual Orientation Not on file documented as of this encounter Plan of Treatment Scheduled Referrals Name Type Priority Associated Diagnoses Orde r Schedule Referral to Nephrology Outpatient Referral Routine Renal insufficiency Ordered: 12/01/2021 documented as of this encounter Visit Diagnoses Diagnosis Renal insufficiency Unspecified disorder of kidney and ureter documented in this encounter
--- OUTSIDE RECORDS SUMMARY | 2024-04-04 20:24 | XMS_ITS | Encounter Summary ---
Author Organization [facility] [place] [address] Care Team Providers Care Kiln Labourer Name Role Phone April Ramirez MD Primary Care Provider [phone] Encounter Details Date Type Department Care Team (Late st Contact Info) Description 07/24/2022 Telephone [place] [address] Cathy Leger MD Social History Tobacco Use Types Packs/Day Years Used Date Smoking Tobacco: Never Passive Smoke Exposure: Never Smokeless Tobacco: Never Alcohol Use Standard Drinks/Week Comments Not Currently 0 (1 standard drink = 0.6 oz pur e alcohol) [facility] Inpatient Questions Answer Date Recorded [...] encounter Miscellaneous Notes * Telephone Encounter - Cathy Leger MD - 07/24/2022 3:23 PM EDT Telephone: CT scan with aortic occlusion, 24-48 hours ago paresthesias in BLE Can't dorsifex in RLE secondary to pain. Current smoker Heparin gtt and transfer to [facility] documented in this encounter Plan of Treatment Not on file documented as of this encounter Visit Diagnoses Not on filedocumented in this encounter Care Teams Kiln Labourer Relationship Specialty Start Date End Date April Ramirez MD [address] [place] [address] PCP - General Family Medicine 07/24/22 documented as of this encounter
--- OUTSIDE RECORDS SUMMARY | 2024-04-04 20:24 | XMS_ITS | Encounter Summary ---
Author Organization [facility] Address [facility] [place] [address] Care Team Providers Care Prop Sawyer Name Role Phone April Ramirez MD Primary Care Provider [phone] Encounter Details Date Type Department Care Team (Late st Contact Info) Description 07/24/2022 3:05 PM EDT Ancillary Procedure Radiology Library at [facility] [place] [phone] Kell Henley PA [address] [place] [address] [place] [address] Social History Tobacco Use Types Packs/Day Years Used Date Smoking Tobacco: Never Passive Smoke Exposure: Never Smokeless Tobacco: Never Alcohol Use Standard Drinks/Week Comments Not Currently 0 (1 standard drink = 0.6 oz pur e alcohol) [facility] Inpatient Questions Answer Date Recorded Does [...] Procedure Name Priority Date/Time Associated Diagnosis Comments FILM LIBRARY STORAGE ONLY CT ABDOMEN AND PELVIS Routine 07/24/2022 3:00 PM EDT documented in this encounter Results * Film Library- Storage Only CT Abdomen & Pelvis (07/24/2022 3:00 PM EDT) Narrative PATRICK URIBE - 07/24/2022 3:00 PM EDT This exam is auto-finalizing. It's purpose is for storage only. Kell ROBERTSON IMG FILM LIBRARY ORD ERABLES [place], [place] documented in this encounter Visit Diagnoses Not on filedocumented in this encounter Care Teams Prop Sawyer Relationship Specialty Start Date End Date April Ramirez MD [address] [place] [address] PCP - General Family Medicine 07/24/22 documented as of this encounter
--- OUTSIDE RECORDS SUMMARY | 2024-04-04 20:24 | XMS_ITS | Encounter Summary ---
[place] [address] Care Team Providers Care Amusement Park Ride Mechanic Name Role Phone Unavailable Primary Care Provider Unavailabl e Encounter Details Date Type Department Care Team (Late st Contact Info) Description 07/18/2022 Telephone [place] [phone] April Esquivel Social History Tobacco Use Types Packs/Day Years Used Date Smoking Tobacco: Every Day Cigarettes 1 35 Smokeless Tobacco: Never Sex and Gender Information Value Date Recorded Sex Assigned at Not on file Gender Identity Not on file Sexual Orientation Not on file documented as of this encounter Miscellaneous Notes * Telephone Encounter - April Esquivel - 07/18/2022 4:06 PM EDT LM for patient to call and schedule a follow up appointment documented in this encounter Plan of Treatment Not on file documented as of this encounter Visit Diagnoses Not on filedocumented in this encounter
--- OUTSIDE RECORDS SUMMARY | 2024-04-04 20:24 | XMS_ITS | Encounter Summary ---
Author Organization [facility] Address [address] [place] [address] Care Team Providers Care Harbor Patrol Police Name Role Phone Unavailable Primary Care Provider Unavailabl e Encounter Details Date Type Department Care Team (Late st Contact Info) Description 03/02/2021 Lab Requisition [facility] Pathology & Laboratory Medicine - [facility] [address] [place] [address] Outr Resulting Lab, Provider Social History Tobacco [...] Procedure Name Priority Date/Time Associated Diagnosis Comments PSA TOTAL, DIAGNOSTIC Routine 03/01/2021 14:20 EST documented in this encounter Results * PSA TOTAL, DIAGNOSTIC (03/01/2021 14:20 EST) PSA 0.5 0.0 - 3.5 ng/mL 03/02/2021 23:14 EST [facility] Blood VENOUS BLOOD / Unknown 03/01/2021 14:20 EST 03/02/2021 21:22 EST Narrative [facility] - 03/02/2021 23:14 EST NOTE: Serum PSA concentration should not be interpreted as absolute evidence for the presence or absence of malignant disease. Assayed on Siemens ADVIA Centaur XPT using chemiluminescent technology.??Values obtained by using different assay methods cannot be used interchangeably. us Provider Outr Resulting Lab CHEMISTRY & BLOOD GA S ORDERABLES Final Result [facility] [address] [place] [address] documented in this encounter Visit Diagnoses Not on filedocumented in this encounter
--- OUTSIDE RECORDS SUMMARY | 2024-04-04 20:24 | XMS_ITS | Encounter Summary ---
Author Organization [facility] Address [address] [place] [address] Care Team Providers Care Ride Assembly Supervisor Name Role Phone Unavailable Primary Care Provider Unavailabl e Encounter Details Date Type Department Care Team (Late st Contact Info) Description 09/20/2021 Lab Requisition [facility] Pathology & Laboratory Medicine - [address] [address] Outr Resulting Lab, Provider Social History Tobacco [...] Procedure Name Priority Date/Time Associated Diagnosis Comments JUAN ANTIBODY PANEL Routine 09/20/2021 11 :00 EDT DOUBLE STRANDED DNA ANTIBODY, IGG Routine 09/20/2021 11:00 EDT documented in this encounter Results * ANTI DNA (DOUBLE STRANDED) (09/20/2021 11:00 EDT) Anti-DNA (Double Stranded) <12.3 <30.0 IU/mL 09/22/2021 12:07 EDT [facility] Comment: ? Negative: ??<30.0 IU/mL ? Borderline Positive: ??30.0 - 75.0 IU/mL ? Positive: ??>75.0 IU/mL Results were obtained with the [employer] Lite dsDNA SC JIA assay on the Dynex DSX. Blood VENOUS BLOOD / Unknown 09/20/2021 11:00 EDT 09/20/2021 20:58 EDT us Provider Outr Resulting Lab IMMUNOLOGY AND SEROL OGY ORDERABLES Final Result [facility] [address] [place] [address] * EXTRACTABLE NUCLEAR ANTIGEN PANEL (09/20/2021 11:00 EDT) SSA Antibody 1.9 <20.0 Units 09/22/2021 12:54 EDT [facility] Comment: ? Negative: <20.0 Units ? Weak Positive: 20.0 - 39.9 Units ? Moderate Positive: 40.0 - 80.0 Units ? Strong Positive: >80.0 Units Results were obtained with the [employer]VA QUANTA Lite SS-A JIA. ??SS-A values obtained with different manufacturers' assay methods may not be used interchangeably. ??The magnitude of the reported IgG levels cannot be correlated to an endpoint titer. SSB Antibody 2.9 <20.0 Units 09/22/2021 12:54 EDT [facility] Comment: ? Negative: <20.0 Units ? Weak Positive: 20.0 - 39.9 Units ? Moderate Positive: 40.0 - 80.0 Units ? Strong Positive: >80.0 Units Results were obtained with the [employer] QUANTA Lite SS-B JIA. ??SS-B values obtained with different manufacturers' assay methods may not be used interchangeably. ??The magnitude of the reported IgG levels cannot be correlated to an endpoint titer. SM (Marquez) Antibody 4.4 <20.0 Units 09/22/2021 12:54 EDT [facility] Comment: ? Negative: <20.0 Units ? Weak Positive: 20.0 - 39.9 Units ? Moderate Positive: 40.0 - 80.0 Units ? Strong Positive: >80.0 Units Results were obtained with the [employer]VA QUANTA Lite Sm JIA. ??Sm values obtained with different manufacturers' assay methods may not be used interchangeably. ??The magnitude of the reported IgG levels cannot be correlated to an endpoint titer. CLINICAL RESEARCH SPEC Antibody 4.2 <20.0 Units 09/22/2021 12:54 EDT [facility] Comment: ? Negative: <20.0 Units ? Weak Positive: 20.0 - 39.9 Units ? Moderate Positive: 40.0 - 80.0 Units ? Strong Positive: >80.0 Units Results were obtained with the [employer] Quanta Lite CLINICAL RESEARCH SPEC JIA. CLINICAL RESEARCH SPEC values obtained with different dog catcher's assay methods may not be used interchangeaby. ??The magnitude of the reported IgG levels cannot be be correlated to an endpoint titer. A positive result in the Quanta Lite CLINICAL RESEARCH SPEC JIA indicates the presence of antibodies reactive with the CLINICAL RESEARCH SPEC/Sm complex but cannot distinguish between anti-Sm and anti-CLINICAL RESEARCH SPEC activity. Blood VENOUS BLOOD / Unknown 09/20/2021 11:00 EDT 09/20/2021 20:58 EDT us Provider Outr Resulting Lab IMMUNOLOGY AND SEROL OGY ORDERABLES Final Result [facility] [address] [place] [address] documented in this encounter Visit Diagnoses Not on filedocumented in this encounter
--- OUTSIDE RECORDS SUMMARY | 2024-04-04 20:24 | XMS_ITS | Clinical Summary ---
Author Organization [facility] Address [address] [place] [address] Care Team Providers Care Naval Architect Specialist Name Role Phone Unavailable Primary Care Provider Unavailabl e Social History Tobacco Use Types Packs/Day Years Used Date Smoking Tobacco: Never Assessed Sex and Gender Information Value Date Recorded Sex Assigned at Not on file Legal Sex Male 8:54 EST Gender Identity Not on file Sexual Orientation Not on file Plan of Treatment Health Maintenance Due Date Last Done Comments Hepatitis C Screen 1965 Hepatitis B Vaccine (1 of 3 - 19+ 3-dose series) 08/13 COVID-19 Vaccine ( season) 2023
--- OUTSIDE RECORDS SUMMARY | 2024-04-04 20:24 | XMS_ITS | Encounter Summary ---
Author Organization [place] [address] Care Team Providers Care Mine Motor Engineer Name Role Phone April Ramirez MD Primary Care Provider [phone] Encounter Details Date Type Department Care Team ([facility] st Contact Info) Description 07/24/2022 Telephone [place] [address] Dayne Pedroza MD [address] [place] [address] [place] [address] Social History Tobacco Use Types Packs/Day Years [...] on filedocumented in this encounter Care Teams Mine Motor Engineer Relationship Specialty Start Date End Date April Ramirez MD [address] [place], [place] [id number] PCP - General Family Medicine 07/24/22 documented as of this encounter
--- OUTSIDE RECORDS SUMMARY | 2024-04-04 20:24 | XMS_ITS | Encounter Summary ---
Author Organization [facility] Address [facility] [place] [address] Care Team Providers Care Utility Repairer Name Role Phone Unavailable Primary Care Provider Unavailabl e Reason for Visit * Consultation (Routine) - Closed Specialty Diagnoses / Procedures Referred By Lisbeth cervantes Referred To Contact Nephrology Diagnoses Renal insufficiency April Ramirez MD [address] [place] [address] [facility] Nephrology [address] [place] [id number] Referral ID Status Reason Start Date Expiration Date V isits Requested Visits Authorized [id number] Closed Consult, Test & Treat PCP Updated and/or Approved 12/01/2021 12/01/2022 12 12 Encounter Details Date Type Department Care Team (Latest Contact Info) Description 01/31/2022 3:00 PM EST Office Visit [place] [address] Sloane Montes APRN [facility] [place] [address] Stage 3a chronic kidney disease; Renal insufficiency; Primary hypertension Social History Tobacco Use Types Packs/Day Years Used Date Smoking Tobacco: Every Day Cigarettes 1 35 Smokeless Tobacco: Never Tobacco Cessation:Ready to Q uit: Not Asked; Counseling Given: Not Answered Sex and Gender Information Value Date Recorded Sex Assigned at Not on file Gender Identity Not on file Sexual Orientation Not on file documented as of this encounter Last Filed Vital Signs Vital Sign Reading Time Taken Comments Blood Pressure 124/82 01/31/2022 2:56 PM EST Pulse 60 01/31/2022 2:56 PM EST Temperature - - Respiratory Rate - - Oxygen Saturation - - Inhaled Oxygen Concentration - - Weight 91.6 kg (202 lb) 01/31/2022 2:56 PM EST Height 179.1 cm (5' 10.5) 01/31/2022 2:56 PM ES T Body Mass Index 28.57 01/31/2022 2:56 PM EST documented in this encounter Progress Notes * Jyoti, Sloane Joanie, COURT LIAISON - 01/31/2022 3:00 PM EST Hypertension/Nephrology Consultation Antelmo Marquez [id number] ID: [id number] y.o. old male seen at the request of Dr. April Ramirez for evaluation of renal insufficiency. Past Medical History: Fibromyalgia Osteoarthritis Hip pain Depression Anxiety Chronic pain HTN No surgeries. History of Present Illness: Referred by his PCP, but not sure why. Energy level zero. 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 Some SOB with exertion, releived with rest. No chest pain/pressure. Appetite good. No N/V. No trouble with urination, voids several times during the day. No dysuria. Able to empty bladder. No skin rashes or pruritis.He denies any swelling in feet or legs. Takes ibuprofen on occasion for headaches, used to take ibuprofen daily for a lot of years. Cannot recall for how long. Per notes received from patient's PCP, he has had uncontrolled HTN. He has been taking atenolol andhas recently been started on losartan. Medications: Outpatient Encounter Medications as of 01/31/2022 Medication Sig Dispense Refill ??? pregabalin (Lyrica) 75 mg Capsule Take 75 mg by mouth 3 times daily. ??? losartan (Cozaar) 25 mg Tablet Take 25 mg by mouth daily. ??? simvastatin (Zocor) 10 mg Tablet Take 10 mg by mouth nightly. ??? sertraline (ZOLOFT) 100 mg Tablet Take 200 mg by mouth daily. ??? atenoloL (Tenormin) 50 mg Tablet Take 50 mg by mouth daily. ??? sildenafiL (Revatio) 20 mg Tablet Take 20 mg by mouth. 2-3 TIMES DAILY DIRECTED ??? clonazePAM (KlonoPIN) 1 mg Tablet Take 1 mg by mouth 3 times daily as needed for Anxiety. No facility-administered encounter medications on file as of 01/31/2022. Allergies / ADRs: Allergies Allergen Reactions ??? Trazodone ??? Wellbutrin [Bupropion] Family History: No family history of renal disease. 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 Lives alone now. Mom lives close by and is supportive. Drives himself. 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 Smoke 1 pack per day for 40 years and CBD pen for pain relief. No illegal drugs. Physical Examination: Vitals: 01/31/22 1456 BP: 124/82 Pulse: 60 Weight: 91.6 kg (202 lb) Height: 179.1 cm (5' 10.5) General: Arrived ambulatory. Alert, comfortable. Cooperative with exam. HEENT: Sclera white. Mucous membranes moist. No lymphadenopathy. CV: S1 and S2. HR regular. JVP not elevated. Resp: Lungs clear with no crackles or wheezes. Respirations non labored. Abd: Soft. + BS. No bruit. Non tender. : No CVA tenderness. Ext: Warm. No cyanosis. No edema. Skin: No rash. Neuro: Intact. No asterixis. Psych: Mood appropriate Labs: Labs from [facility] available in media Ca 9.7 Glucose 125 BUN 17 Creat 1.5 GFR 54 Na 138 K 4.2 Chlor 102 Cor 29 Hgb 17.1 NEEMA positive JUAN panel negative SS-B Antibody negative Marquez Antibody negative VEHICLE OPERATOR Antibody negative Anti DNA (double stranded) negative Renal ultrasound was unremarkable A/P: Renal insufficiency - With GFR of 54. Most likely related to history of HTN and NSAID use. He did have a positive NEEMA, however without hematuria or proteinuria and negative Anti DNA, its' significance is unclear with regards to lupus nephritis. Recomend stoping ibuprofen and avoiding other nephrotic toxic medications. BP well controlled today on current medications. Electrolytes in range. Will consider renal biopsy if functions shows a sharp decline. Follow up in 6 months with labs. Thank you for allowing me to participate in the care of this interesting patient. >the total time spent [id number] AND total time the provider spent counseling was 45 minutes. Please CC to: April Ramirez MD @PCPADD@ documented in this encounter Plan of Treatment Not on file documented as of this encounter Procedures Procedure Name Priority Date/Time Associated Diagnosis Comments HC URINALYSIS ROUTINE Routine 01/31/2022 3:00 PM EST Stage 3a chronic kidney disease HC PROTEIN, QUANTITATIVE, URINE Routine 01/31/2022 3:00 PM EST Stage 3a chronic kidney disease documented in this encounter Results * Protein/Creatinine Ratio, urine (01/31/2022 3:00 PM EST) Creatinine, Urine 122 mg/dL [facility] Protein, Urine 9 0 - 12 mg/dL [facility] Protein / Creatinine Ratio, Urine <0.1 ratio [facility] Urine 01/31/2022 3:00 PM EST 01/31/2022 4:20 PM EST Narrative Resulting Agency Comment Spec In Lab Sloane Montes APRN URINE ORDERABLES Performing Organization Address City/State/[facility] Co de Phone Number [facility] [place] [address] * (ABNORMAL) _Urinalysis with microscopic (01/31/2022 3:00 PM EST) Glucose, Urine Dipstick Negative Negative mg/dL [facility] Protein, Urine Dipstick Negative Negative mg/dL [facility] Bilirubin, Urine Dipstick Negative Negative mg/dL [facility] Comment: Clinical correlation required for positive Urine Bilirubin results as false positive may occur with some drugs and drug related products. If a false positive is suspected a serum total bilirubin should be considered if clinically indicated. Urobilinogen, Urine Dipstick Normal Normal mg/dL [facility] pH, Urn (dipstick) 6.0 5.0 - 8.0 [facility] Blood, Urine Dipstick Negative Negative mg/dL [facility] Ketone, Urine Dipstick Negative Negative mg/dL [facility] Nitrite, Urine Dipstick Negative Negative [facility] Leukocytes, Urine Dipstick Negative Negative mcL [facility] Appearance, Urine Dipstick Cloudy(A) Clear [facility] Specific [place] Urine Automated 1.019 1.005 - 1.030 [facility] Color, Urine Dipstick Yellow Yellow [facility] RBC, Urine <1 0 - 3 /HPF [facility] WBC, Urine 3 0 - 3 /HPF [facility] Bacteria, Urine Few(A) None /HPF [facility] Squamous Epithelial Cells Raw Data, Urine 1 <=4 /HPF [facility] Amorphous Crystals, Urine Occasional(A ) None /HPF [facility] Urine 01/31/2022 3:00 PM EST 01/31/2022 4:20 PM EST Narrative Resulting Agency Comment Spec In Lab Sloane Montes COURT LIAISON URINE ORDERABLES [facility] [place] [address] documented in this encounter Visit Diagnoses Diagnosis Stage 3a chronic kidney disease Renal insufficiency Unspecified disorder of kidney and ureter Primary hypertension Unspecified essential hypertension documented in this encounter
--- OUTSIDE RECORDS SUMMARY | 2024-04-04 20:24 | XMS_ITS | Encounter Summary ---
[place] [address] Care Team Providers Care Vice President Of Academic Affairs Name Role Phone Unavailable Primary Care Provider Unavailabl e Encounter Details Date Type Department Care Team (Latest Contact Info) Description 01/31/2022 Travel Social History Tobacco Use Types Packs/Day [...]
--- OUTSIDE RECORDS SUMMARY | 2024-04-04 20:24 | XMS_ITS | Encounter Summary ---
Author Organization [facility] Address [address] [place] [address] Care Team Providers Care Extrusion Die Repair Manager Name Role Phone Unavailable Primary Care Provider Unavailabl e Encounter Details Date Type Department Care Team (Late st Contact Info) Description 05/25/2021 Lab Requisition [facility] Pathology & Laboratory Medicine - [facility] [address] [place] [address] Outr Resulting Lab, Provider Social History Tobacco [...] Procedure Name Priority Date/Time Associated Diagnosis Comments ZZCOVID-19 TEST [facility] PCR Today 05/24/2021 10:15 EDT COVID-19 TESTING Routine 05/24/2021 10:1 5 EDT documented in this encounter Results * COVID-19 TEST [facility] PCR (05/24/2021 10:15 EDT) Swab 05/24/2021 10:1 5 EDT 05/25/2021 16:42 EDT us Provider Outr Resulting Lab MICROBIOLOGY - GENER AL ORDERABLES Final Result [facility] [address] [place] [address] * COVID-19 TESTING (05/24/2021 10:15 EDT) COVID-19 rt-PCR Result Negative Negative 05/26/2021 12:48 EDT [facility] Comment: This test has not been FDA cleared or approved. This test has been authorized by FDA under an EUA for use by authorized laboratories. This test has been authorized only for detection of nucleic acid from 2019-nCoV, not for any other viruses or pathogens. This test is only authorized for the duration of the declaration that circumstances exist justifying the authorization of emergency use of in vitro diagnostic tests for detection and/or diagnosis of 2019-nCoV under section 564(b)(1) of Act, 21 U.S.C ?? 360bbb-3(b) (1), unless the authorization is terminated or revoked sooner. Negative results do not preclude 2019-nCoV infection and should not be used as the sole basis for treatment or other patient management decisions. Negative results must be combined with clinical observations, patient history, and epidemiological information. Testing was performed using the ed SARS-CoV-2 assay ([employer] on the Ed 6800 System Performing Lab Ed 6800 [facility] 05/26/2021 12:48 EDT [facility] Swab 05/24/2021 10:1 5 EDT 05/25/2021 16:42 EDT us Provider Outr Resulting Lab MICROBIOLOGY - GENER AL ORDERABLES Final Result [facility] [address] [place] [address] documented in this encounter Visit Diagnoses Not on filedocumented in this encounter
--- OUTSIDE RECORDS SUMMARY | 2024-04-04 20:24 | XMS_ITS | Referral Summary ---
Author Organization [facility] Address [address] [place] [address] Care Team Providers Care Sales Account Executive Name Role Phone Unavailable Primary Care Provider Unavailabl e Social History Tobacco Use Types Packs/Day Years Used Date Smoking Tobacco: Never Assessed Sex and Gender Information Value Date Recorded Sex Assigned at Not on file Legal Sex Male 8:54 EST Gender Identity Not on file Sexual Orientation Not on file Plan of Treatment Not on file
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
[2024-04-04 20:29] LABS: Abs Immature Grans 0.05 10^3/uL (0.0-0.06); Absolute Basophil Count 0.03 10^3/uL (0.0-0.2); Absolute Lymphocyte Count 2.56 10^3/uL (1.2-3.4); Absolute Monocyte Count 0.53 10^3/uL (0.1-0.8); Absolute Neutrophil Count 4.06 10^3/uL (1.2-6.7); Basophils % 0.4 %; Eosinophils % 1.4 %; HCT 45.7 % (40.0-50.0); HGB 15.2 g/dL (13.5-17.5); Immature Grans % 0.7 %; Lymphocytes % 34.9 %; MCH 30.8 pg (27.0-33.0); MCHC 33.3 % (32.0-36.0); MCV 93 fL (80-95); MPV 10.5 fL (8.0-11.0); Monocytes % 7.2 %; Neutrophils % 55.4 %; Platelet Count 119 10^3/uL (130-400); RBC 4.94 10^6/uL (4.36-5.78); RDW 14.1 % (11.8-14.1); RDW-SD 47.6 fL; WBC 7.33 10^3/uL (4.4-10.8)
--- NOTE | 2024-04-04 20:30 | RT.EKG_ITS ---
APPROVED REPORT Exam: Resting ECG Reason for Exam: Bradycardia Patient Location: E HR:50 bpm ECG Measurements Heart Rate 50 AXIS MS 151 P 29 QRSd 102 QRS 78 QT 477 T 26 QTc 434 Conclusion Sinus bradycardia...rate< 60 No STEMI
[2024-04-04 20:40] LABS: Lab Add On Test DONE
[2024-04-04] MEDS: Omnipaque 350 MG/ML 100 ML BTL IJ (20:40)
[2024-04-04 20:56] LABS: Abs Immature Grans 0.08 10^3/uL (0.0-0.06); Absolute Basophil Count 0.05 10^3/uL (0.0-0.2); Absolute Eosinophil Count 0.13 10^3/uL (0.0-0.7); Absolute Lymphocyte Count 3.57 10^3/uL (1.2-3.4); Absolute Monocyte Count 0.62 10^3/uL (0.1-0.8); Absolute Neutrophil Count 5.22 10^3/uL (1.2-6.7); Basophils % 0.5 %; Eosinophils % 1.3 %; HCT 50.4 % (40.0-50.0); Immature Grans % 0.8 %; Lymphocytes % 36.9 %; MCH 30.3 pg (27.0-33.0); MCHC 33.7 % (32.0-36.0); MCV 90 fL (80-95); MPV 11.1 fL (8.0-11.0); Monocytes % 6.4 %; Neutrophils % 54.1 %; Platelet Count 134 10^3/uL (130-400); RBC 5.61 10^6/uL (4.36-5.78); RDW 14.1 % (11.8-14.1); RDW-SD 46.6 fL; WBC 9.67 10^3/uL (4.4-10.8)
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
[2024-04-04 21:14] LABS: ALT 35 U/L (16-63); AST 30 U/L (15-37); Albumin 2.9 g/dL (3.4-5.0); Alkaline Phosphatase 69 U/L (46-116); Anion Gap 6.7 mmol/L (3-11); BUN 31 mg/dL (7-18); Bilirubin, Total 0.56 mg/dL (0.2-1.0); CO2 24.3 mmol/L (21.0-32.0); CREATININE 1.8 mg/dL (0.70-1.30); Calcium 7.9 mg/dL (8.5-10.1); Chloride 101 mmol/L (98-107); Estimated GFR 43.63 (mL/min/1.73m2); Glucose 184 mg/dL (74-106); Potassium 4.1 mmol/L (3.5-5.1); Sodium 132 mmol/L (136-145); Troponin I 8 ng/L (<or=76)
[2024-04-04 21:15] LABS: ETHANOL BLOOD < 3.0 mg/dL (<10)
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
== END 2024-04-04 21:36 | disposition short-term general hospital (02) ==
PROVIDERS: Emergency Provider Emergency Medicine; PCP Family Medicine
DX: S27.321A Contusion of lung, unilateral, initial encounter; S22.41XA Multiple fractures of ribs, right side, initial encounter for closed fracture; I95.9 Hypotension, unspecified; E78.5 Hyperlipidemia, unspecified; I10 Essential (primary) hypertension; Z79.82 Long term (current) use of aspirin; Z79.01 Long term (current) use of anticoagulants
CPT/HCPCS: 123; 36430; 74177; 76604; 76705; 76857; 80053; 86850; 86900; 86901; 86920; 93005; 96361; 96374; 99285; 00123; 70450; 71260; 72125; 80320; 84484; 85025; 93010; J3490; J7168; P9016

== ENCOUNTER → 2024-07-31 14:05 | Outpatient (BNVA) | payer MEDICARE, SELFPAY | PROVIDERS: PCP Family Medicine; Referring Provider Family Medicine; Visit Provider Surgery | DX: K43.2 Incisional hernia without obstruction or gangrene (principal) | CPT/HCPCS: 99215 ==

== ENCOUNTER 2024-08-26 17:52 | Outpatient (REF) | payer MEDICARE, SELFPAY ==
[2024-08-26 18:54] LABS: ALT 36 U/L (16-63); AST 33 U/L (15-37); Albumin 4.1 g/dL (3.4-5.0); Alkaline Phosphatase 89 U/L (46-116); Anion Gap 10.5 mmol/L (3-11); BUN 24 mg/dL (7-18); Bilirubin, Total 0.3 mg/dL (0.2-1.0); CO2 24.5 mmol/L (21.0-32.0); Calcium 9.3 mg/dL (8.5-10.1); Chloride 105 mmol/L (98-107); Estimated GFR 78.30 (mL/min/1.73m2); Glucose 91 mg/dL (74-106); Potassium 4.4 mmol/L (3.5-5.1); Sodium 140 mmol/L (136-145); Total Protein 7.5 g/dL (6.4-8.2)
== END 2024-08-26 17:53 | disposition home or self-care (01) ==
LOC: NCHCN 17:52
PROVIDERS: PCP Family Medicine; Visit Provider Family Medicine
DX: I10 Essential (primary) hypertension (principal)
CPT/HCPCS: 80053

== ENCOUNTER 2024-10-07 08:57 | Day surgery (SDC) | payer MEDICARE, SELFPAY ==
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
--- NOTE | 2024-10-06 17:53 | W.PM.OP ---
Operative Note Operative Note PRE-OP DIAGNOSIS: Incisional hernia POST-OP DIAGNOSIS: same PROCEDURE: Open repair ventral incisional hernia with retrorectus rectus mesh SURGEON: Bunny Marquez CONTENT DESIGNER: Doreen Rojas ANESTHESIA TYPE: Local By Surgeon and General LMA/ETT Refer to Anesthesia Record ESTIMATED BLOOD LOSS: 50 PATHOLOGY: none sent COMPLICATIONS: None Patient was transported to: PACU Patient's condition: stable Implants: 11.[address] Indications: Antelmo is a 59-year-old male with a symptomatic incisional hernia Findings: Multiple supraumbilical incisional midline hernia defects Procedure Description: I met with Antelmo in the preoperative area, and we reviewed the plan for surgery. He was then moved back to the operating room, and assisted onto the OR table. He was padded and supported appropriately. General endotracheal anesthesia was then initiated, and I prepped and draped the abdomen in the usual fashion. I anesthetized the midline with local anesthetic mixed with Exparel. I made a midline incision over the previous surgical incision. I dissected down into the subcutaneous space. Around the midportion of the incision, I encountered a large hernia sac. The surrounding soft tissues were carefully dissected away down to the edge of the fascia which was retracted a bit laterally. The defect of the fascia was approximately 4-1/2 cm left to right by approximately 5 cm top to bottom. I continued this dissection cephalad, where I encountered another midline defect that was smaller than the first. Again, the fascial edge was all dissected clean. The incision was extended cephalad a little bit further, and all of this midline fascia was intact. Next, I dissected the inferior portion of the incision towards the umbilicus. As this dissection was carried downward, 2 more fascial defects were encountered in the midline. These all seem consistent with incisional dehiscence. Once all of this was dissected down to clean and healthy fascia I turned my attention to development of the retrorectus space. The fascia and deep soft tissues were infiltrated with local anesthetic including Exparel. The fascia was incised along the left side from the top portion of the incision all the way down to the bottom. Careful dissection was used to elevate the rectus muscle away from the posterior sheath. Great care was taken to preserve the perforators along the posterior lateral margin. The anterior fascia was also slightly developed from rectus along a clean healthy edge. I then performed the same dissection along the left side. In total, the defect was approximately 10 cm from top to bottom by approximately 5 cm wide. The surgical site was all irrigated clean. It was all hemostatic. The posterior fascia was then closed with 2-0 PDS from the top and the bottom imbricating the previously mentioned hernia sacs towards the peritoneal cavity. Once this posterior fascial sheath was reapproximated, a 14 cm x [address] mesh was tailored to fit the incision. It was pexied in place in the retrorectus space over top of the posterior fascial closure. The rectus muscles were brought back towards the midline over top of the fascia, and the anterior sheath was then closed with running 2-0 PDS from the top and the bottom in a fashion similar to the posterior. Surgical site was irrigated again. The skin and subcutaneous tissues were hemostatic. The deep soft tissues were reapproximated with 3-0 Vicryl stitches. Small portions of the right and left side of the skin edge were then sharply excised back to healthy tissue for more cosmetic closure. The skin was reapproximated with a surgical stapler. A aman negative pressure wound therapy device was then applied according to the pediatric cardiologist's instructions Date of Procedure: 10/07/24
--- NOTE | 2024-10-06 17:54 | W.PM.DSUDISC ---
Date of service: 10/07/24 Discharge Plan Disposition Patient Disposition: Home Condition: Good Discharge Details Reason For Visit: Incisional hernia repair Attending Provider: Bunny Marquez Primary Care Provider: April Ramirez V Home Meds and New Rx's Prescriptions: New oxycodone 10 mg tablet 10 mg PO Q8H PRNQty: 15 0RF Rx Instructions: Take 1 tablet by mouth up to every 8 hours if needed for more severe pain. Use only as needed, discontinue as soon as you can tolerate the discomfort. cyclobenzaprine 5 mg tablet 5 mg PO TID PRNQty: 9 0RF Rx Instructions: Take 1 tablet by mouth up to every 8 hours if needed for least Continued atenolol 50 mg tablet 50 mg PO DAILY naloxone 4 mg/actuation spray,non-aerosol 4 mg intranasal Q2-3M PRN Rx Instructions: spray 1 dose into ONE nostril; alternate nostrils w each dose until help arrives losartan 100 mg tablet 100 mg PO DAILY pregabalin 150 mg capsule 150 mg PO TID simvastatin 20 mg tablet 20 mg PO QHS clonazepam 1 MG tablet 1 mg PO TID aspirin 81 mg tablet,chewable 81 mg PO DAILY Patient Comments: CHEW AND SWALLOW 1 TABLET BY MOUTH DAILY Held oxycodone 5 mg tablet 5 mg PO Q6H PRN Hold Instructions: Resume on 10/13/24. Discontinued Eliquis 5 mg tablet 5 mg PO BID Patient Comments: Pt. stat Eliquis 5 mg tablet Patient Comments: TAKE 1 TABLET BY MOUTH TWICE DAILY Discharge Instructions Additional Instructions: Antelmo, It was good seeing you today, and I hope you make a smooth and uneventful recovery as you transition home. We were able to repair your hernia just as we discussed in the office. As I suspected, there were actually several defects along the previous incisional closure. These were all incorporated into the repair, and I hope this provides an effective and durable solution to your problem. As you will see, you have a special bandage over top of the incision to help control any drainage that may come out from the area where the previous hernia existed. The dressing is sealed by plastic, and connects to a small device that supplies suction to the wound. So long as the light is blinking green on the device, everything is working fine. If you notice that the light starts blinking a different color, please call my office, or call the hospital directly and have them page the surgeon on-call. You will be able to shower with this dressing in place. To do so, simply tap the orange button once, and the green light should stop leaking. Then untwist the connection into the suction tubing. Set the suction device aside, and shower just as you normally would. It is okay for the plastic dressing to get wet. When you are done, reconnect the suction tubing and tap the orange button once again. It should blink different colors for a little bit or 2 as the suction is established, then go back to steady blinking green. You may notice some bruising under the incision and the taste of. That is extremely common to worry about. As I mentioned before surgery, you should be up and moving around a little bit every day. Please keep your lifting less than a gallon of milk or so. Avoid any twisting or vigorous muscular activity of your abdominal wall. As you requested before the operation, I did place a prescription for 10 mg of oxycodone. Again, please use it sparingly. I also placed a prescription for a muscle relaxer as you may experience some spasms of your rectus muscle. If you need anything, or have any questions at all, please do not hesitate to call at any point. Otherwise, we look forward to seeing you in the office on the at 9:30 in the morning to remove the surgical dressing. 1. Resume all of your regular medications. 2. Use ice packs over the incision to help with pain and swelling. 3. Alternate over the counter tylenol and ibuprofen every 6 hours for the first 2 days, then use as needed. Use the prescription for oxycodone for cyclobenzaprine if you need 4. Notify the office or the surgeon on-call immediately for any problems with your stress. 5. It is okay to begin showering on 10/08/2024 6. No soaking or tub baths until I see you in the office. 7. No heavy lifting until I see you in the office. 8. Call the office (or go directly to the emergency room after hours) if you notice any of the following: Develop chills (warm to touch), or if you have a thermometer and your temperature is above 101 Difficulty breathing or difficultly swallowing Persistent vomiting Any bleeding ? exceeding one tablespoon 9. Call your physician if the site where your intravenous was started becomes red, swollen, painful, and warm to touch. Referrals: Bunny Marquez MD [ [facility] STAFF PHYSICIAN, Surgery] - 10/14/24 9:30 am Activity:: No heavy lifting Remove Dressings/Wound Care:: Do Not Remove Shower/Bathe:: 24 hours Diet:: As Tolerated Discharge Orders Discharge Orders: Discharge Order (Routine); Ordered 10/06/24 Ordered By: Bunny Marquez DS: Diagnosis Discharge Diagnosis (1) Incisional hernia: Status: Acute
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
[2024-10-07] VITALS (18 sets, daily range): BP systolic 115–134; BP diastolic 79–104; PULSE 60–68; RESP 10–20; TEMP 36.2–37; O2SAT 91–99; BMI 30.3
[2024-10-07] MEDS: Lactated Ringers 1,000 ML 80 ML IV (09:50)
[2024-10-07] MEDS: Acetaminophen 500 MG TAB 1000 MG PO (10:00)
[2024-10-07] MEDS: Gabapentin 300 MG CAP 600 MG PO (10:00)
[2024-10-07] MEDS: ceFAZolin 2 GM/50 ML BAG IVPB (10:10)
[2024-10-07] MEDS: Bupivacaine LIPOSOME/PF 133 MG/10 ML VIAL IJ (10:34)
[2024-10-07] MEDS: Bupivacaine 0.25% Pres-Free 30 ML VIAL (10:34)
--- NOTE | 2024-10-07 12:54 | W.ANESPOSTOP ---
Postoperative Evaluation Date, Time and Location Date Performed: 10/07/24 Time Performed: 12:54 Patient Location: PACU Vital Signs Most Recent Imported Vital Signs: Most Recent Vital Signs Temp Pulse Resp BP Pulse Ox 37.0 C 67 10 L 134/89 91 L 10/07/24 12:48 10/07/24 12:51 10/07/24 12:51 10/07/24 12:50 10/07/24 12:51 Pain Score Most Recent Pain Score: Most Recent Pain Score Pain Level 0 10/07/24 12:43 Assessment Mental Status: Awake (Alert & Oriented to Patient Baseline) Airway and Respiratory Function: Patent airway with normal (patient baseline) respiratory exam Cardiovascular Function: Hemodynamically Stable Hydration Status: Adequately Hydrated Nausea & Vomiting: No Nausea or Vomiting Pain: Pain is tolerable per patient Peripheral Nerve Block: Patient did not receive a nerve block
== END 2024-10-07 14:00 | disposition home or self-care (01) ==
LOC: SUR 08:57
PROVIDERS: PCP Family Medicine; Visit Provider Surgery
PROC: (CPT 49594; principal; 2024-10-07 10:00)
DX: K43.2 Incisional hernia without obstruction or gangrene (principal); I10 Essential (primary) hypertension; J44.9 Chronic obstructive pulmonary disease, unspecified; F17.210 Nicotine dependence, cigarettes, uncomplicated
CPT/HCPCS: 49594; C1781; J0665; J0666; J0690; J1100; J1644; J2371; J2405; J2598; J2704

== ENCOUNTER → 2024-10-14 09:28 | Outpatient (BNVA) | payer MEDICARE, SELFPAY | PROVIDERS: PCP Family Medicine; Referring Provider Family Medicine; Visit Provider Physical Therapy Assistant | DX: Z48.815 Encounter for surgical aftercare following surgery on the digestive system (principal); K43.2 Incisional hernia without obstruction or gangrene | CPT/HCPCS: 99213 ==

== ENCOUNTER → 2024-10-23 10:36 | Outpatient (BNVA) | payer MEDICARE, SELFPAY | PROVIDERS: PCP Family Medicine; Referring Provider Family Medicine; Visit Provider Physical Therapy Assistant | DX: Z48.817 Encounter for surgical aftercare following surgery on the skin and subcutaneous tissue (principal); K43.9 Ventral hernia without obstruction or gangrene | CPT/HCPCS: 99213 ==